=== PATIENT | male | born 1950 | race Caucasian/White ===

== ENCOUNTER → 2019-01-18 | Outpatient (CLI) | payer MEDICARE, OTHER, SELFPAY ==
[2017-02-25 12:12] VITALS: BMI 35.9
[2019-01-18 11:29] LABS: PSA,Total- Diagnostic 0.52 ng/mL (0.0-4.0)
== END | disposition home or self-care (01) ==
LOC: LAB 10:30
PROVIDERS: Family Provider Internal Medicine; PCP Internal Medicine; Referring Provider Urology; Visit Provider Urology
DX: C61 Malignant neoplasm of prostate (principal)
CPT/HCPCS: 36415; 84153

== ENCOUNTER → 2020-03-01 | Outpatient (CLI) | payer MEDICARE, OTHER, SELFPAY ==
[2019-09-08 10:38] VITALS: BMI 32.5
[2020-03-01 15:47] LABS: PSA,Total- Diagnostic 0.49 ng/mL (0.0-4.0)
== END | disposition home or self-care (01) ==
LOC: LAB 15:05
PROVIDERS: PCP Internal Medicine; Referring Provider Urology; Visit Provider Urology
DX: C61 Malignant neoplasm of prostate (principal)
CPT/HCPCS: 36415; 84153

== ENCOUNTER → 2020-03-22 06:59 | Outpatient (CLI) | payer MEDICARE, OTHER, SELFPAY ==
[2020-03-13 08:51] VITALS: BMI 31.9
--- NOTE | 2020-03-22 06:59 | ECHOCS_ITS ---
Reason For Study: CAD/ASHD Procedure This was a 2D Doppler, Color Flow transthoracic echocardiogram. The study was technically difficult. PT scanned in supine position due to inability to lie in left lateral decubitus position. Contrast injection was performed. Exam performed in department. Left Ventricle Normal LV size. Mild segmental systolic dysfunction (see wall motion). The estimated ejection fraction is 40 %. No evidence for diastolic dysfunction. Posterior-Basal: Hypokinetic. Infero-Basal: Hypokinetic. Basal inferoseptal: Hypokinetic. Mid-Lateral : Hypokinetic. Mid-Posterior: Hypokinetic. Mid-Inferior: Hypokinetic. Mid-inferoseptal : Hypokinetic. Inferior [place] : Hypokinetic. Right Ventricle Normal RV size. Normal systolic function. Atria Normal left atrium. Normal right atrium. No doppler evidence for ASD. Mitral Valve There is no mitral annular calcification. Normal mitral valve. Trivial mitral valve insufficiency. Tricuspid Valve Normal tricuspid valve. Trivial tricuspid valve insufficiency. Unable to estimate RV systolic pressure/pulmonary artery pressure due to technically difficult study. Aortic Valve Trisinus/trileaflet aortic valve. Normal aortic valve. Pulmonic Valve The pulmonic valve is not well visualized. Great Vessels Normal sized aortic root. Pericardium/Pleural No pericardial effusion. Medication Diluted definity 3.0ml given slow IV push to enhance endocardial definition. MMode/2D Measurements & Calculations LVIDd: 4.9 cm IVSd: 1.3 cm Ao root diam: 3.7 cm LVIDs: 3.7 cm LVPWd: 1.3 cm RVDd: 3.6 cm FS: 24.0 % LAV(MOD-bp): 67.2 ml LA A4 area: 19.4 cm2 LA dimension(2D): 3.6 cm LAV(MOD-bp) Indexed: 30.0 ml/m2 LAV(MOD-sp2): 75.6 ml LAV(MOD-sp4): 57.7 ml RA A4 area: 15.0 cm2 Doppler Measurements & Calculations MV E max marin: 61.4 cm/sec Lat Peak E' Marin: 11.9 cm/sec Med Peak E' Marin: 5.0 cm/sec MV A max marin: 107.7 cm/sec E/E' lat: 5.2 E/E' med: 12.4 MV E/A: 0.57 Ao V2 max: 106.5 cm/sec LV V1 max: 83.9 cm/sec PA V2 max: 65.9 cm/sec Ao max P.5 mmHg LV V1 max P.8 mmHg Interpretation Summary The study was technically difficult. Contrast injection was performed. Mild segmental systolic dysfunction (see wall motion). The estimated ejection fraction is 40 %. Trivial mitral valve insufficiency. Trivial tricuspid valve insufficiency. Unable to estimate RV systolic pressure/pulmonary artery pressure due to technically difficult study. No evidence for diastolic dysfunction. Ordering Physician: Becca Steve Referring Physician: Kaycee Singer Performed By: Stephanie Angeles, ZEKE, RVT
--- NOTE | 2020-03-22 09:38 | STRESSREP ---
Stress Test Report Date: 03-22-2020 Procedure: Pharmacologic stress nuclear imaging study Indications: Chest pain; CAD; PCI Consent: Per the patient Procedure: The patient underwent pharmacologic (Regadenoson) evaluation with a peak heart rate of 106 beats per minute (70 %predicted maximal heart rate) and a peak blood pressure of 158/98 mmHg. The baseline ECG demonstrated normal sinus rhythm: Nonspecific ST/T wave abnormality. The peak pharmacologic ECG demonstrated no obvious ECG changes. There was an occasional PVC and intermittent ventricular bigeminy during recovery. There was concerns of chest discomfort during recovery with spontaneous resolution. The examination was discontinued secondary to completion of protocol. Impression: 1. Pharmacologic (Regadenoson) evaluation 2. Peak pharmacologic ECG with no obvious ECG changes. 3. There was an occasional PVC with intermittent ventricular bigeminy during recovery. 4. Nuclear images pending Myocardial perfusion imaging study: Technique: The patient was injected with 14.5 millicuries of technetium 99m Cardiolite and subsequently rest SPECT Cardiolite nuclear imaging was obtained in the horizontal long, vertical long, and short axis views. The patient underwent pharmacologic (Regadenoson) evaluation with a peak heart rate of 106 beats per minute (70 % percent predicted maximal heart rate) and a peak blood pressure of 158/98 mmHg. The patient was injected with 44.4 millicuries of technetium 99m Cardiolite and subsequently stress SPECT Cardiolite nuclear imaging was obtained in the horizontal long, vertical long, and short axis views. A gated Cardiolite study at peak stress was obtained. Interpretation: Rest and stress SPECT Cardiolite nuclear imaging status post realignment, normalization, and attenuation correction demonstrate at rest the appearance of relative uniform tracer uptake and status post stress the appearance of diminished myocardial perfusion/tracer uptake in portions of the distal anterior and anteroseptal and anterior apical/septal apical segments. There is diminished end systolic thickening and brightening in the aforementioned areas. The gated Cardiolite study demonstrates diminished myocardial thickening and inward wall motion in the aforementioned area. The reported LVEF is 52 %. Impression: 1. Rest and stress SPECT her nuclear imaging demonstrate myocardial perfusion changes concerning for an area of stress-induced myocardial ischemia involving portions of the distal anterior, distal anteroseptal, and anteroapical/septal apical segments. 2. The gated Cardiolite study reports an LVEF of 52 %. This note was generated with Dragon dictation software. It may contain incorrect words, spelling, and punctuation that were not noted in checking the note before signing.
== END ==
PROVIDERS: PCP Internal Medicine; Referring Provider Physician Assistant Medical; Visit Provider Physician Assistant Medical
DX: I25.10 Atherosclerotic heart disease of native coronary artery without angina pectoris (principal)
CPT/HCPCS: 78452; 93017; 93306; A9500; Q9957; A4216; C8929; J2785

== ENCOUNTER 2020-04-13 08:42 | Day surgery (SDC) | payer MEDICARE, OTHER, SELFPAY ==
[2020-03-13 08:51] VITALS: BMI 31.9
--- NOTE | 2020-03-27 06:49 | RAD_ITS ---
STUDY: X-RAY CHEST REASON FOR EXAM: Male, 69 years old. SOB. HX PVC, SC W/ STENTS INSERTION. PRE-HEART CATH. TECHNIQUE: PA and lateral views of the chest. COMPARISON: Comparison is made with prior study dated 02/19/2013. FINDINGS: Hyperinflation. There is no demonstrated pleural abnormality. Normal size heart. Normal mediastinum and adrianna. Normal visualized pulmonary arteries. There is atherosclerotic calcification of the aortic arch with tortuosity. There are diffuse degenerative changes of the visualized thoracic spine. Normal visualized ribs, clavicles, and shoulders. There is no demonstrated abnormality of the visualized soft tissue structures of the upper abdomen. RAD/Chest PA and Lateral IMPRESSION: Hyperinflation. Electronically Signed: Kaz Lee, at 10:51 EDT , Service support ,
[2020-03-27 07:07] LABS: Absolute Lymphocyte Count 2.83 X10^3/uL (0.83-4.51); Absolute Neutrophil Count 3.7 X10^3/uL (2.0-7.7); Basophil# 0.03 X10^3/uL; Basophil% 0.4 % (0-1); Eosinophils% 4.1 % (0-5); Hematocrit 47.3 % (40-54); Hemoglobin 15.8 g/dL (13.0-16.5); Lymphocyte # 2.83 X10^3/ul (4.0); Lymphocyte % 39.1 % (19-41); Mean Corp Hgb Conc 33.4 g/dL (32-36); Mean Corpuscular Volume 92.9 fL (80-94); Mean Platelet Vol. 10.5 fl (6.2-12.0); Monocyte# 0.37 X10^3/uL; Monocyte% 5.1 % (0-10); NRBC Flagged by Analyzer 0 % (0-5); Neutrophil # 3.67 X10^3/uL (2.7-7.7); Neutrophil % 50.7 % (47-70); Platelet Count 174 K/mm3 (150-450); RBC Distribution Width CV 13.2 % (11.6-14.6); RBC Distribution Width SD 45.2 fl (35.1-43.9); Red Blood Count 5.09 M/mm3 (4.6-6.2); White Blood Count 7.2 K/mm3 (4.4-11.0)
[2020-03-27 07:15] LABS: International Normalized Ratio 1.1; Prothrombin Time (Protime)PT. 13.2 SECONDS (11.7-14.9)
[2020-03-27 07:46] LABS: Anion Gap 5 (5-15); BUN 20 mg/dL (7-18); BUN/Creat Ratio 17.9 RATIO (10-20); Calcium,Total 8.7 mg/dL (8.5-10.1); Chloride 109 mmol/L (98-107); Creatinine, Serum 1.12 mg/dL (0.70-1.30); EST Glomerular Filtration Rate 69 mL/min (>60); Est Glom Filt Rate - Afr Amer 83 mL/min (>60); Glucose 166 mg/dL (74-106); Sodium Level 141 mmol/L (136-145)
[2020-04-12 07:55] VITALS: BMI 31.9
[2020-04-13] VITALS (17 sets, daily range): BP systolic 108–158; BP diastolic 52–115; PULSE 61–89; RESP 13–21; TEMP 36.3–37; O2SAT 96–100; BMI 33.2
--- NOTE | 2020-04-13 09:05 | PCM.HP.BLA ---
Problem List (1) Abnormal stress test Status: Acute History and Physical Date of Admission: 04/13/20 [facility] [address] [place] [address] OFFICE VISIT Date of Service: 03/13/20 MR#: [id number] Acct: [id number] Name: JONNIE SARABIA Rep #: [id number] : 1950 Provider: RADHA Steve Age/Sex: 69/M [place] [facility] [place] Status: Signed HPI HPI History of Present Illness Details: This is a 69-year-old gentleman that presents here today for cardiovascular follow-up. He recently established with us. He has a history of coronary artery disease with stenting to his LAD and diagonal in 2012. He also has a history of hypertension, hyperlipidemia, PVCs, CLL, diabetes and remote history of CVA. His biggest issue is his hip. He will be establishing with Dr. Olson. He is thinking that he will need a hip replacement. He sts that he had labs done at [facility] recently. He does not have any chest pain. He does not have any worsening SOB. He does not have any orthopnea. But does sleep in a chair. He does not have any palpitations although he sts his PCP noted frequent PVC on an EKG. He does not have any lightheadedness/dizziness. He does have lower extremity edema but feels that this is not any worse than before. Intake Vital Signs 03/13/20 Height 5 ft 11 in 03/13/20 Weight: 229 lb 03/13/20 BP 156/83 H 03/13/20 Blood Pressure Location Lt brachial 03/13/20 Position Sitting 03/13/20 Respiration 18 03/13/20 Pulse 70 03/13/20 Pulse Source Monitor 03/13/20 Pulse Oximetry (%) 98 Intake Visit Reasons: 6 M FU/COMING IN [employer] Book[employer] Required: No Is patient in pain?: No Allergies atorvastatin [From Lipitor] Allergy (Severe, Verified 03/13/20 08:52) Other pravastatin [From Pravachol] Allergy (Severe, Verified 03/13/20 08:52) Other rosuvastatin [From Crestor] Allergy (Severe, Verified 03/13/20 08:52) Other Nfmnkzn-Nnw-Jfx Reductase Inhibitor Allergy (Severe, Verified 03/13/20 08:52) Other ciprofloxacin Adverse Reaction (Severe, Verified 03/13/20 08:52) dizziness, vomiting Medications Acetaminophen 650 mg PO Q4H PRN PRN 11/01/16 [History Confirmed 03/13/20] Cholecalciferol (VIT D3) [Vitamin D3] 5,000 unit PO DAILY 11/01/16 [History Confirmed 03/13/20] Ramipril [Altace] 10 mg PO DAILY 11/01/16 [History Confirmed 03/13/20] Aspirin [Aspirin, Baby] 81 mg PO DAILY@0800 #0 11/03/16 [Rx Confirmed 03/13/20] Carvedilol [Coreg (Beta Lalita)] 12.5 mg PO BID tab 11/03/16 [Rx Confirmed 03/13/20] ezetimibe 10 mg tablet 10 mg PO DAILY 06/14/19 [History Confirmed 03/13/20] insulin aspart U-100 100 unit/mL (3 mL) subcutaneous pen 10 unit SUBCUT DAILY ml 06/14/19 [History Confirmed 03/13/20] insulin glargine 100 unit/mL (3 mL) subcutaneous pen 15 unit SUBCUT QHS ml 06/14/19 [History Confirmed 03/13/20] metformin 500 mg tablet 2,000 mg PO DAILY tab 06/14/19 [History Confirmed 03/13/20] ketoconazole 2 % topical cream 1 applic TOPICAL DAILY 09/08/19 [History Confirmed 03/13/20] COUNT INCLUDES THE [facility] Medical History Mixed hyperlipidemia (Chronic) Essential hypertension (Chronic) Presence of stent in coronary artery (Chronic ~02/20/13) Atherosclerotic heart disease of pamunkey coronary artery without angina pectoris (Chronic) Morbid obesity (Chronic) DM2 (diabetes mellitus, type 2) (Chronic) Chronic systolic CHF (congestive heart failure) (Chronic) Altered mental status (Chronic) CLL (chronic lymphocytic leukemia) (Chronic) History of pleural effusion (Acute) Diverticulosis (Chronic) Left pontine stroke (Chronic) Blood in the urine (Resolved) Surgical History Presence of coronary angioplasty implant and graft (Chronic ~02/20/13) History of bilateral cataract extraction (Resolved) Family History Mother CAD (coronary artery disease) Social History (Updated 03/13/20 @ 09:41 by RADHA Torres) Smoking Status: Never smoker alcohol intake: current substance use type: does not use caffeine: No ROS Const Const: Positive for fatigue; negative for weakness, fever(s) or headache(s) Eyes Eyes: Negative for blind spots, loss of peripheral vision or transient loss of vision ENT ENT: Positive for balance problems; negative for headache(s), dizziness, tinnitus or Nosebleed/epistaxis Cardio Chest Pain: No Palpitations: No Edema: Bilateral Muscle aches with walking: None Resp Respiratory: Positive for SOB with activity; negative for SOB at rest, SOB orthopnea\SOB lying down or Cough GI GI: Negative nausea, vomiting, heartburn or vomiting blood/hematemesis : Negative for hematuria Musc Musc: Positive for muscle aches/ myalgia, muscle weakness, joint pain and balance problems Neuro Neuro: Negative for dizziness, lightheadedness, near syncope, syncope, orthostatic symptoms, headache(s) or weakness Juan Manuel Hematologic/Lymphatic: Negative for easy bleeding Endo Endo: Positive for fatigue Cardiology Exam Const Appearance: cooperative, no acute distress, well developed and other (in WC with cane) Orientation: alert, awake and oriented x3 Head Head: normocephalic and atraumatic Mouth: moist mucous membranes Eyes General: appearance normal, both eyes and all related structures Conjunctivae: conjunctivae normal Pupils: PERRL EOM: EOM intact bilaterally Neck Neck: normal visual inspection, no lymphadenopathy and no JVD Carotids: Negative bruit Neck Mass: Negative Neck mass Chest Chest inspection: normal inspection of the chest and symmetric chest movement Auscultation: Bilateral: Clear to Auscultation Cardio Palpation: normal PMI Rate: regular rate Rhythm: regular rhythm Heart sounds: S1 normal and S2 normal; negative rub, gallop or murmur GI GI: normal to inspection, soft, no hepatosplenomegaly and bowel sounds present; negative tender Neuro General: alert, awake, oriented x3, CN's II-XI intact bilaterally and moves all extremities Extremities Pulses: Normal: Right Posterior Tibial Pulse, Left Posterior Tibial Pulse, Right Radial Pulse, Left Radial Pulse Lower Extremity Edema: +2: Bilateral, Color Changes: Bilateral Psych Psychological: normal affect Assessment & Plan 1. Atherosclerosis of pamunkey coronary artery of [place] heart without angina pectoris I25.10 Plan It has been greater than 5 years since pt has had a stress test. With his hx of CAD with stenting and possible upcoming surgery would like to obtain a stress test to evaluate for underlying ischemia. He also has frequent PVCs that were noted on his EKG. Orders Orders: Echo Complete Today Nuclear Stress Test - Chemical Today 2. Essential hypertension I10 Plan Blood pressure is well controlled on current medications, we do not recommend any changes at this time. 3. Mixed hyperlipidemia E78.2 Plan This is managed by his PCP, he will continue with Zetia, he is intolerance to statins. 4. Edema R60.9 Plan With his lower extremity edema and orthopnea would like to obtain an echocardiogram to evaluate. Plan Detail Follow Up 9 Months (PFM) Coding Level of Care Code Off vis,est,level 4 Diagnoses Atherosclerosis of pam[place]key coronary artery of [place] heart without angina pectoris I25.10 ??[place] vs. transplanted heart: pamunkey heart Essential hypertension I10 Mixed hyperlipidemia E78.2 Edema R60.9 Coding Level of Care Code Off vis,est,level 4 Diagnoses Atherosclerosis of [place] coronary artery of [place] heart without angina pectoris I25.10 ??[place] vs. transplanted heart: [place] heart Essential hypertension I10 Mixed hyperlipidemia E78.2 Edema R60.9 Supplemental Info Supplemental Information Diagnostics Electrocardiogram 09/08/19 03/13/20 0942 <Electronically signed by Becca GARCIA> Date Becca GARCIA Cosigner Signature: Date (if applicable) CC: Dr. Kaycee Singer MD ~ I have examined the patient the following changes are noted: The patient has undergone subsequent noninvasive evaluation with an exercise tolerance test/imaging study. The results are noted below. Stress Test Report Date: 03-22-2020 Procedure: Pharmacologic stress nuclear imaging study Indications: Chest pain; CAD; PCI Consent: Per the patient Procedure: The patient underwent pharmacologic (Regadenoson) evaluation with a peak heart rate of 106 beats per minute (70 %predicted maximal heart rate) and a peak blood pressure of 158/98 mmHg. The baseline ECG demonstrated normal sinus rhythm: Nonspecific ST/T wave abnormality. The peak pharmacologic ECG demonstrated no obvious ECG changes. There was an occasional PVC and intermittent ventricular bigeminy during recovery. There was concerns of chest discomfort during recovery with spontaneous resolution. The examination was discontinued secondary to completion of protocol. Impression: 1. Pharmacologic (Regadenoson) evaluation 2. Peak pharmacologic ECG with no obvious ECG changes. 3. There was an occasional PVC with intermittent ventricular bigeminy during recovery. 4. Nuclear images pending Myocardial perfusion imaging study: Technique: The patient was injected with 14.5 millicuries of technetium 99m Cardiolite and subsequently rest SPECT Cardiolite nuclear imaging was obtained in the horizontal long, vertical long, and short axis views. The patient underwent pharmacologic (Regadenoson) evaluation with a peak heart rate of 106 beats per minute (70 % percent predicted maximal heart rate) and a peak blood pressure of 158/98 mmHg. The patient was injected with 44.4 millicuries of technetium 99m Cardiolite and subsequently stress SPECT Cardiolite nuclear imaging was obtained in the horizontal long, vertical long, and short axis views. A gated Cardiolite study at peak stress was obtained. Interpretation: Rest and stress SPECT Cardiolite nuclear imaging status post realignment, normalization, and attenuation correction demonstrate at rest the appearance of relative uniform tracer uptake and status post stress the appearance of diminished myocardial perfusion/tracer uptake in portions of the distal anterior and anteroseptal and anterior apical/septal apical segments. There is diminished end systolic thickening and brightening in the aforementioned areas. The gated Cardiolite study demonstrates diminished myocardial thickening and inward wall motion in the aforementioned area. The reported LVEF is 52 %. Impression: 1. Rest and stress SPECT her nuclear imaging demonstrate myocardial perfusion changes concerning for an area of stress-induced myocardial ischemia involving portions of the distal anterior, distal anteroseptal, and anteroapical/septal apical segments. 2. The gated Cardiolite study reports an LVEF of 52 %. Based upon the patient's cardiovascular history and his exercise tolerance test/imaging findings it is been recommended the patient undergo further evaluation with diagnostic cardiac catheterization. The procedure and risks were discussed with the patient. He was agreeable to this approach. Procedure Criteria Procedure Type: Elective COVID Risk Discussion: The surgeon/proceduralist and patient have discussed in detail the risk of exposure to and/or potential harm posed by the COVID-19 virus with having a surgery/procedure at this time versus the risk of delaying the surgery/procedure. It is not possible to know either the risk of delaying the surgery or procedure or chance of getting an infection with perfect accuracy, but a joint decision was made between the patient and the surgeon/proceduralist to proceed at this time with the scheduled surgery/procedure as indicated on the consent form.
--- NOTE | 2020-04-13 12:32 | NURSING ---
Stent card brought up to patient room with patient post cath. stent card given to patient's at this time.
--- NOTE | 2020-04-13 13:00 | EKG12_ITS ---
Test Reason : Blood Pressure : / mmHG Vent. Rate : 082 BPM Atrial Rate : 082 BPM P-R Int : 184 ms QRS Dur : 110 ms QT Int : 386 ms P-R-T Axes : 059 -39 026 degrees QTc Int : 450 ms Normal sinus rhythm Left axis deviation Abnormal ECG Confirmed by HANNY MONTANA, ERIKA ([id number]), editor book MASHA TERRY ([id number]) on 04/19/2020 11:09:21 AM Referred By: Ru Alexander Confirmed By:ERIKA GAMINO MD
--- NOTE | 2020-04-13 13:10 | DCINST_ITS ---
Discharge Diet: Low fat/ Low Cholesterol Discharge Activity: Return to Normal Activity May shower in (days): 1 - No tub baths for 5 days May resume sexual activity in: 1-2 weeks Lifting Restrictions: Do not lift anything greater than 10 pounds for 3 days Call your doctor if your incision/area has: Continuous Slow Oozing, Sudden Increased Bleeding, Increased Pain/ Swelling, Increased Redness, Foul Smelling Discharge, Swelling at the incision site Call your doctor if you observe: Fever of 101 or Higher, Shortness of breath, Chest pain Remove Dressing in (days):: 1 Cleanse incision/area with: Soap & Water Additional Instructions: You will continue with Aspirin and Plavix therapy. If anyone asks you to stop your Plavix, please call the [facility] at [phone], option 4, first. You will be contacted by the [facility] in regards to routine follow-up in approximately 2-4 weeks. At that time we will consider readiness for cardiac rehab. If you have any questions or concerns at any point please call the [facility] at [phone], option 4. Allergies/Adverse Reactions: Allergies atorvastatin [From Lipitor] Allergy (Severe, Verified 03/13/20 08:52) Other CAN'T MOVE pravastatin [From Pravachol] Allergy (Severe, Verified 03/13/20 08:52) Other CAN'T MOVE rosuvastatin [From Crestor] Allergy (Severe, Verified 03/13/20 08:52) Other CAN'T MOVE Gkcupts-Bgu-Oft Reductase Inhibitor Allergy (Severe, Verified 03/13/20 08:52) Other CAN'T MOVE ciprofloxacin Adverse Reaction (Severe, Verified 03/13/20 08:52) dizziness, vomiting Medications to take at Discharge Acetaminophen 650 mg PO Q4H PRN PRN 11/01/16 Cholecalciferol (VIT D3) [Vitamin D3] 5,000 unit PO DAILY 11/01/16 Ramipril [Altace] 10 mg PO DAILY PRN 11/01/16 Aspirin [Aspirin, Baby] 81 mg PO DAILY@0800 #0 11/03/16 Carvedilol [Coreg (Beta Lalita)] 12.5 mg PO BID tab 11/03/16 ezetimibe 10 mg tablet 10 mg PO DAILY 06/14/19 insulin aspart U-100 100 unit/mL (3 mL) subcutaneous pen 10 unit SUBCUT BID ml 06/14/19 insulin glargine 100 unit/mL (3 mL) subcutaneous pen 15 unit SUBCUT QHS ml 06/14/19 metformin 500 mg tablet 2,000 mg PO DAILY tab 06/14/19 clopidogrel 75 mg tablet 75 mg PO DAILY #30 tab 03/23/20 Primary Care Physician: Kaycee Singer MD [Primary Care Provider] - Test Results: Test results from this visit will be discussed in further detail at your follow- up appointment, if applicable. Please Follow Up With: [facility] Proposed Discharge Date: 04/14/20 Cardiac Rehabilitation Info Cardiac Rehabilitation Program Information: Cardiac Rehabilitation is important for patients like you who are recovering from a heart problem. Cardiac rehabilitation programs are recognized as integral to the continued care of the patient with coronary heart disease. The cardiac rehabilitation program is designed to optimize a patient's physical, psychological, and social functioning. Health customer care voice consultant work in cardiac rehabilitation programs and assist you with getting the treatments you need to get stronger and healthier - like exercise, healthy eating habits, and medications. Cardiac rehabilitation has been show to help people with heart problems live longer and have better life enjoyment than people who do not go to cardiac rehabilitation. Please contact the Cardiac Rehabilitation Program at [facility] at in two weeks if you have not heard from them.
[2020-04-13] MEDS: 0.9% Normal Saline 1,000 ML 60 ML IV (13:12)
[2020-04-13 13:20] LABS: Bedside Glucose 176 mg/dL (70-110)
[2020-04-13] MEDS: Insulin Lispro 100 UNIT/ML INSULN.PEN 10 UNIT SC ×2 (13:45→17:18)
--- NOTE | 2020-04-13 14:12 | CRPHASE1 ---
Patient Communication PHII Cardiac Rehab Discussed with Patient:: Yes Guide to Cardiac Rehab Given to Patient:: Yes Cardiac Rehab Facility Choice List Given to Patient:: Yes Choice Program [facility] PHII:: Communication Given to CR District Manager:: Monica Mcgarry Phase II Cardiac Rehab:: Yes Sessions:: 36 sessions - 3 days/wk, 12 weeks Risk Factors/Lifestyle Smoking Status: Never smoker Hx Hypertension: Yes Hx Diabetes Mellitus Type 2: Yes Hx Dyslipidemia: Yes Hx Obesity: Yes Family History: Family History (Last Reviewed 03/13/20 @ 09:17 by RADHA Torres) Mother CAD (coronary artery disease) Cardiac Rehabilitation Info Cardiac Rehabilitation Program Information: Cardiac Rehabilitation is important for patients like you who are recovering from a heart problem. Cardiac rehabilitation programs are recognized as integral to the continued care of the patient with coronary heart disease. The cardiac rehabilitation program is designed to optimize a patient's physical, psychological, and social functioning. Health health care consultant work in cardiac rehabilitation programs and assist you with getting the treatments you need to get stronger and healthier - like exercise, healthy eating habits, and medications. Cardiac rehabilitation has been show to help people with heart problems live longer and have better life enjoyment than people who do not go to cardiac rehabilitation. Please contact the Cardiac Rehabilitation Program at [facility] at in two weeks if you have not heard from them.
--- NOTE | 2020-04-13 14:15 | CRPH1.INSTRU ---
General Education CAD and cardiac anatomy and function:: Patient communicates acknowledgment Explanation of diagnoses and procedures:: Patient communicates acknowledgment Sign/Symptoms of [place]:: Patient communicates acknowledgment Antiplatelet therapy: Patient communicates acknowledgment Proper use of NTG-SL: Patient communicates acknowledgment Emergency procedures and activation of EMS: Patient communicates acknowledgment Compliance of all prescribed medications: Patient communicates acknowledgment Dyslipidemia Patient Dyslipidemia Risk Factors Are:: Total Cholesterol, Triglycerides, HDL, LDL Recommendations Include:: Lipid profile not available Dyslipidemia Response Code:: Patient communicates acknowledgment Overweight/Obesity Patient Overweight/Obesity Risk Factors Are:: BMI Normal [24-29 & > 65 years old] Recommendations Include:: Weight loss of 5-10%, Reduced calorie diet, Exercise 5-7 times/week Overweight/Obesity:: Patient communicates acknowledgment Hypertension Recommendations Include:: BP <130/80 if diabetic, DASH dietary guidelines, Decrease/maintain normal body weight Hypertension:: Patient communicates acknowledgment Diabetes Patient Diabetes Risk Factors Are:: Elevated blood sugars Recommendations Include:: Maintain fasting blood sugars 70-110 md/dL, Maintain HgbA1c of 6% or less, Monitor blood sugar as prescribed, Diabetic dietary guidelines, Decrease/maintain body weight Diabetes:: Patient communicates acknowledgment Sedentary Patient Sedentary Risk Factors Are:: Lack of regular exercise Recommendations Include:: Aerobic exercise 5-7 times/week for 20-30 minutes continuously, Benefits of regular exercise, Discussed home walking program, Monitored Outpatient Cardiac Rehab Sedentary Response Code:: Patient communicates acknowledgment Stress Recommendations Include:: Identification of stressors, and assessment of coping skills, Stress management techniques Stress Response Code:: Patient communicates acknowledgment
--- NOTE | 2020-04-13 16:50 | CL.I_ITS ---
Patient Name: JONNIE SARABIA Study Date: 04/13/2020 Performing: Lulú Mcgarry MD Ht: 71 inches 180 cm : 1950 Wt: 229.6 lbs 104 kg Age: 69 Gender: male BSA: 2.23 PROCEDURE(S) PERFORMED [id number] W OR WO PTCA, SINGLE CORONARY ARTERY CLINICAL PROFILE AND CO-MORBIDITIES Indications: Worsening Angina. Unstable angina Heart Failure: None CONCLUSIONS Successful PCI with Drug eluting stent and PTCA to the LAD RECOMMENDATIONS ASA Indefinitley Plavix for at least 12 months Follow up with Dr. Alexander Pt. should return for PCI of distal LCx in 2-3 weeks DESCRIPTION OF PROCEDURE The patient arrived to the procedure lab. The risks and benefits of the procedure as well as a full d escription of our services here and current unavailability of surgical backup were fully explained to the patient and/or their significant other prior to the catheterization. The Timeout was completed, verifying the correct patient and procedure. The patient's procedural site was prepped and draped in the usual fashion. Local anesthetic was given subcutaneously to right radial region with Lidocaine 2% Using a modified Seldinger technique,arterial access was obtained via the right radial artery, a 6Fr sheath was inserted. Right Coronary Artery selective angiography was performed in multiple views usi ng a 5 Fr. 4.0 [place] catheter. Left Coronary Artery selective angiography was performed in multiple v iews using a 5 Fr. 4.0 [place] catheter. Left Ventriculography was performed in [place]IR[place]ICK projection using a 5 Fr. Pigtail catheter. LV to AO pullback pressures were then recorded. XB 3.0 Guide catheter was inserted and engaged into the LCA. Whisper Guide wire was advanced to t he LAD. Emerge 1.5 x 15 Balloon catheter was inserted. Balloon catheter was advanced across lesion in the LAD, mid. PTCA balloon inflated at 10 atms for 14 secs. PTCA balloon inflated at 10 atms for 14 secs. PTCA balloon inflated at 10 atms for 10 secs. PTCA balloon inflated at 10 atms for 11 secs. PTC A balloon inflated at 10 atms for 10 secs. PTCA balloon inflated at 10 atms for 10 secs. Emerge 2.0 x 20 Balloon catheter was inserted. Balloon catheter was advanced across lesion in the LAD, mid. PTCA balloon inflated at 6 atms for 8 secs. PTCA balloon inflated at 6 atms for 18 secs. PTCA balloon infl ated at 6 atms for 9 secs. PTCA balloon inflated at 6 atms for 10 secs. PTCA balloon inflated at 8 at ms for 24 secs. PTCA balloon inflated at 10 atms for 11 secs. Synergy 2.25 x 38 Drug Eluting stent wa laina inserted. Drug Eluting stent was advanced across the lesion in the LAD, mid. Synergy 2.25 x 16 Drug Eluting stent was inserted. Drug Eluting stent was advanced across the lesion in the L AD, mid. Angiogram performed post stent deployment. The arterial sheath was pulled and a TR Band basia [place] applied for hemostasis INTERVENTION INFORMATION LESION SITE: LAD (Mid) Lesion Complexity: High/C, chronic total occlusion: Yes, lesion at bifurcation: No, thrombus present: No, lesion length: 50 mm, culprit lesion: Yes, Previously treated lesion: No Pre Stenosis: 99 % Pre intervention RONNIE flow: 2 PROCEDURE: Drug Eluting Stent with pre dilatation. Post Stenosis: 0 % Post intervention RONNIE flow: 3 Lesion Devices: Cardinal 6 Fr XB3.0 100cm Guide Catheter Robb .014 [employer] [place] Straight 190cm Robb .014 HT Whisper MS Straight 190cm Adolph Sci EMERGE MR 1.50x15 BALLOON [employer] 6 [place] GuideLiner Adolph Sci EMERGE MR 2.00x20 BALLOON Adolph Sci Synergy MR LLUVIA 2.25x38 Adolph Sci Synergy MR LLUVIA 2.25x16 COMPLICATIONS No Complications PROCEDURE MEDICATIONS Fentanyl 50 mcg IV Versed 1 mg IV Oxygen: 2 L/min via nasal cannula Heparin diluted in 23cc Heparinized saline. Patient given 10cc IA of this solution. 04/13/2020 10:27: 16 Heparin 7000 unit(s) IV 04/13/2020 11:12:31 Nitro 200 mcg IC 04/13/2020 11:39:07 Nitro 200 mcg IC 04/13/2020 11:39:07 Verapamil 2.5mg, Ntg 100mcgs, 2000 units of Heparin diluted in 23cc Heparinized saline. Patient give n 10cc IA of this solution. 04/13/2020 10:27:16 SUMMARY OF HEMODYNAMIC DATA Time AIR REST ECG 09:04:41 AO 154/80 (106) SA 10:34:21 LV 183/8, 29 10:54:33 LV 178/6, 25 10:54:39 LV 177/5, 21 10:55:37 LV 179/7, 22 10:55:43 LVp 183/6, 22 10:55:48 AOp 188/83 (127) 10:55:53 Signed By Lulú Mcgarry MD On 04/13/2020 16:49:59 Lulú Mcgarry MD
[2020-04-13 17:11] LABS: Anion Gap 6 (5-15); BUN 18 mg/dL (7-18); Calcium,Total 8.5 mg/dL (8.5-10.1); Chloride 108 mmol/L (98-107); Creatinine, Serum 1.06 mg/dL (0.70-1.30); EST Glomerular Filtration Rate 73 mL/min (>60); Est Glom Filt Rate - Afr Amer 89 mL/min (>60); Estimated Creatinine Clearance 64.85 ml/min; Glucose 161 mg/dL (74-106); Magnesium 2.2 mg/dL (1.6-2.6); Potassium 4.3 mmol/L (3.5-5.1); Sodium Level 139 mmol/L (136-145)
[2020-04-13] MEDS: Carvedilol 12.5 MG Tablet PO (17:18)
[2020-04-13 17:30] LABS: Bedside Glucose 150 mg/dL (70-110)
--- NOTE | 2020-04-13 19:12 | CL.D_ITS ---
Patient Name: JONNIE SARABIA Study Date: 04/13/2020 Performing: Ru Alexander MD Ht: 71 inches 180 cm : 1950 Wt: 229.6 lbs 104 kg Age: 69 Gender: male BSA: 2.23 PROCEDURE(S) PERFORMED KM30-ZFC/COR/LV EQ44-VGR W OR WO PTCA, SINGLE CORONARY ARTERY CLINICAL PROFILE AND INDICATIONS Indications: Worsening Angina. Unstable angina, Suspected CAD Heart Failure: None Stress/Imaging Date: 03/22/2020Stress Test with SPECT MPI: Positive Angina Classification Anginal Classification w/in 2 Weeks: Anginal Equivalent Dyspnea CAD Presentations: Other: dyspnea on exertion CONCLUSIONS Elevated Left Ventricular End Diastolic Pressure Segmented LV systolic dysfunction- Mild LVEF: by LV gram 45 % [place] Multivessel CAD RECOMMENDATIONS Risk factor modification Medical therapy Referred for immediate PCI Consider staged PCI of the LCX system DESCRIPTION OF PROCEDURE The patient arrived to the procedure lab. The risks and benefits of the procedure as well as a full d escription of our services here and current unavailability of surgical backup were fully explained to the patient and/or their significant other prior to the catheterization. The Timeout was completed, verifying the correct patient and procedure. The patient's procedural site was prepped and draped in the usual fashion. Local anesthetic was given subcutaneously to right radial region with Lidocaine 2% . Using a modified Seldinger technique, arterial access was obtained via the right radial artery, a 6 Fr sheath was inserted. Right Coronary Artery selective angiography was performed in multiple views using a 5 Fr. 4.0 [place] catheter. Left Coronary Artery selective angiography was performed in multipl e views using a 5 Fr. 4.0 [place] catheter. Left Ventriculography was performed in [place] projection using a 5 Fr. Pigtail catheter. LV to AO pullback pressures were then recorded.The arterial sheath was pulled and a TR Band was applied for hemostasis CORONARY ANGIOGRAPHY DOMINANCE: Left Dominant LEFT HEART ASSESSMENT Left Ventricular Ejection Fraction: by LV Gram 45 % Anterior Hypokinesis. Inferior Mid Hypokinesis. Apical Hypokinesis Elevated Left Ventricular End Diastolic Pressure LVEDP: 25 mmHg LEFT ANTERIOR DESCENDING ARTERY: PROX LAD: Previously placed stent is patent MID LAD: s/p stent: subtotally occluded with the mid to distal vessel filling late DIAGONAL 1: Proximal - Previously placed stent is patent CIRCUMFLEX ARTERY: OSTIAL CIRC: eccentric: 25 % Stenosis PROX CIRC: Mild luminal irregularities MID CIRC: Mild luminal irregularities DISTAL CIRC: 90 % Stenosis OM 2: Mid - Mild luminal irregularities LT PDA: Left PDA: Mid - diffuse: 50 % Stenosis RIGHT CORONARY ARTERY: PROX RCA: long: diffus: irregular: 95 % Stenosis AORTIC ROOT: Angiographically normal COMPLICATIONS No Complications PROCEDURE MEDICATIONS Fentanyl 50 mcg IV Versed 1 mg IV Oxygen: 2 L/min via nasal cannula Heparin diluted in 23cc Heparinized saline. Patient given 10cc IA of this solution. 04/13/2020 10:27: 16 Heparin 7000 unit(s) IV 04/13/2020 11:12:31 Nitro 200 mcg IC 04/13/2020 11:39:07 Nitro 200 mcg IC 04/13/2020 11:39:07 Verapamil 2.5mg, Ntg 100mcgs, 2000 units of Heparin diluted in 23cc Heparinized saline. Patient give n 10cc IA of this solution. 04/13/2020 10:27:16 SUMMARY OF HEMODYNAMIC DATA Time AIR REST ECG 09:04:41 AO 154/80 (106) SA 10:34:21 LV 183/8, 29 10:54:33 LV 178/6, 25 10:54:39 LV 177/5, 21 10:55:37 LV 179/7, 22 10:55:43 LVp 183/6, 22 10:55:48 AOp 188/83 (127) 10:55:53 Signed By Ru Alexander MD On 04/13/2020 19:11:12 Ru Alexander MD
[2020-04-13 21:46] LABS: Bedside Glucose 135 mg/dL (70-110)
[2020-04-14 02:59] VITALS: PULSE 62
[2020-04-14 03:10] VITALS: BP 140/69; PULSE 70; RESP 16; TEMP 36.8; O2SAT 97
[2020-04-14 06:32] LABS: Hematocrit 46.8 % (40-54); Hemoglobin 15.9 g/dL (13.0-16.5); Mean Corpuscular Hgb 31.4 pg (27.0-32.0); Mean Corpuscular Volume 92.3 fL (80-94); Mean Platelet Vol. 10.6 fl (6.2-12.0); Platelet Count 137 K/mm3 (150-450); RBC Distribution Width CV 13.2 % (11.6-14.6); RBC Distribution Width SD 44.2 fl (35.1-43.9); Red Blood Count 5.07 M/mm3 (4.6-6.2); White Blood Count 7.5 K/mm3 (4.4-11.0)
[2020-04-14 06:54] VITALS: PULSE 69
[2020-04-14 06:56] LABS: ALB/GLOB Ratio 1.5 RATIO (0.9-2.4); AST(SGOT) 9 U/L (15-37); Alanine Aminotransfer ALT/SGPT 16 U/L (16-61); Albumin, Serum 3.4 g/dL (3.2-5.0); Alkaline Phosphatase 43 U/L (45-117); Anion Gap 3 (5-15); BUN 18 mg/dL (7-18); BUN/Creat Ratio 16.4 RATIO (10-20); Calcium,Total 8.4 mg/dL (8.5-10.1); Chloride 110 mmol/L (98-107); EST Glomerular Filtration Rate 70 mL/min (>60); Est Glom Filt Rate - Afr Amer 85 mL/min (>60); Estimated Creatinine Clearance 62.49 ml/min; Globulin 2.3 g/dL (2.2-4.2); Glucose 88 mg/dL (74-106); Potassium 3.8 mmol/L (3.5-5.1); Protein, Total 5.7 g/dL (6.4-8.2); Sodium Level 142 mmol/L (136-145)
[2020-04-14 08:22] VITALS: BP 155/75; PULSE 69; RESP 16; TEMP 36.4; O2SAT 96
[2020-04-14] MEDS: Aspirin 81 MG TAB.CHEW PO (08:25)
[2020-04-14] MEDS: Clopidogrel Bisulfate 75 MG Tablet PO (08:26)
[2020-04-14] MEDS: Ezetimibe 10 MG Tablet PO (08:26)
[2020-04-14] MEDS: Carvedilol 12.5 MG Tablet PO (08:26)
--- NOTE | 2020-04-14 10:00 | EKG12_ITS ---
Test Reason : AM EKG Blood Pressure : / mmHG Vent. Rate : 070 BPM Atrial Rate : 070 BPM P-R Int : 190 ms QRS Dur : 112 ms QT Int : 396 ms P-R-T Axes : 066 -33 002 degrees QTc Int : 427 ms Sinus rhythm with occasional Premature ventricular complexes Left axis deviation Incomplete left bundle branch block Abnormal ECG When compared with ECG of 13-APR-2020 13:35, MANUAL COMPARISON REQUIRED, DATA IS UNCONFIRMED Confirmed by PAO MONTANA, SHERINE ([id number]), technical writer and editor MASHA TERRY ([id number]) on 04/27/2020 1:33:02 PM Referred By: Ru Alexander Confirmed By:CALIN CEDENO MD
--- NOTE | 2020-04-14 10:10 | DCINST_ITS ---
- Discharge Diagnoses Current Active Problems: Current Active and Chronic Problems (Last Reviewed 03/13/20 @ 09:17 by PA. RADHA Torres) Abnormal stress test (Acute) You will use the following diet at home:: Calorie/Carbohydrate Controlled (specify 1200, 1400, etc) - 1800 Calories, Cardiac Your food should be the consistency of: Regular Discharge Activity: May Not Drive - Do not drive: 48 hours, May Take a Tub Bath - May not take a tub bath for 7 days May shower in (days): 1 - No tub baths for 5 days May resume sexual activity in: 1-2 weeks Weight Bearing Status: - - Avoid heavy exertional activity pending outpatient follow-up Call your doctor if your incision/area has: Continuous Slow Oozing, Sudden Increased Bleeding, Increased Pain/ Swelling, Increased Redness, Foul Smelling Discharge, Swelling at the incision site Call your doctor if you observe: Fever of 101 or Higher, Shortness of breath, Chest pain Remove Dressing in (days):: 1 Cleanse incision/area with: Soap & Water Additional Instructions: Hold metformin until 04-16-2020 then resume Allergies/Adverse Reactions: Allergies atorvastatin [From Lipitor] Allergy (Severe, Verified 03/13/20 08:52) Other CAN'T MOVE pravastatin [From Pravachol] Allergy (Severe, Verified 03/13/20 08:52) Other CAN'T MOVE rosuvastatin [From Crestor] Allergy (Severe, Verified 03/13/20 08:52) Other CAN'T MOVE Iwnmeta-Vmk-Xtl Reductase Inhibitor Allergy (Severe, Verified 03/13/20 08:52) Other CAN'T MOVE ciprofloxacin Adverse Reaction (Severe, Verified 03/13/20 08:52) dizziness, vomiting Medications to take at Discharge Cholecalciferol (VIT D3) [Vitamin D3] 5,000 unit PO DAILY 11/01/16 Ramipril [Altace] 10 mg PO DAILY PRN 11/01/16 Aspirin [Aspirin, Baby] 81 mg PO DAILY@0800 #0 11/03/16 Carvedilol [Coreg (Beta Lalita)] 12.5 mg PO BID tab 11/03/16 ezetimibe 10 mg tablet 10 mg PO DAILY 06/14/19 insulin aspart U-100 100 unit/mL (3 mL) subcutaneous pen 10 unit SUBCUT BID ml 06/14/19 insulin glargine 100 unit/mL (3 mL) subcutaneous pen 15 unit SUBCUT QHS ml 06/14/19 metformin 500 mg tablet 2,000 mg PO DAILY tab 06/14/19 clopidogrel 75 mg tablet 75 mg PO DAILY #30 tab 03/23/20 Primary Care Physician: Kaycee Singer MD [Primary Care Provider] - Test Results: Test results from this visit will be discussed in further detail at your follow- up appointment, if applicable. Please Follow Up With: [facility] Proposed Discharge Date: 04/14/20
--- NOTE | 2020-04-14 10:12 | PCM.DC.SUM ---
Discharge Date and Diagnosis - Problem List Patient Problems: Active and Suspected Problems (Last Reviewed 03/13/20 @ 09:17 by RADHA Alas) Abnormal stress test (Acute) Date of Admission: 04/13/20 Date of Discharge: 04/14/20 - Primary Discharge Diagnosis Acute Problems: Active Problems (Last Reviewed 03/13/20 @ 09:17 by RADHA Alas) Abnormal stress test (Acute) - Secondary Discharge Diagnosis Chronic Problems: Chronic Problems (Last Reviewed 03/13/20 @ 09:17 by RADHA Alas) Mixed hyperlipidemia (Chronic) Essential hypertension (Chronic) Presence of stent in coronary artery (Chronic ~02/20/13) PTCA/LLUVIA to prox LAD and PTCA/LLUVIA to Prox DX 1 @ [facility] 02/20/2013 Atherosclerotic heart disease of [place] coronary artery without angina pectoris (Chronic) Morbid obesity (Chronic) DM2 (diabetes mellitus, type 2) (Chronic) Chronic systolic CHF (congestive heart failure) (Chronic) Altered mental status (Chronic) CLL (chronic lymphocytic leukemia) (Chronic) ? Hospital Course and Treatment Operations: None Procedures: Cardiac catheterization, - - Cardiac intervention Summary of Care Provided: The patient is a 69 year old white male with a past history of CAD status post PCI who presented for an abnormal exercise tolerance test/imaging study for diagnostic cardiac catheterization. He was found to have progression of his underlying coronary artery disease especially with respect to the LAD and LCx distribution. He subsequently underwent LAD PTCA/stent. He is going to be considered for a staged procedure to the LCx distal distribution. He was monitored overnight. He appeared to be symptomatically and hemodynamically stable. He was felt able to be released home for continued outpatient cardiovascular follow-up. [] Patient Problems: Active and Suspected Problems (Last Reviewed 03/13/20 @ 09:17 by RADHA Alas) Abnormal stress test (Acute) Subjective: Is a 69-year-old white male appears to be resting comfortably at the moment in no acute distress. - Physical Exam Vitals/I&O's: Vital Signs Temp Pulse Resp BP Pulse Ox 97.6 F L 69 16 155/75 H 96 04/14/20 08:22 04/14/20 08:22 04/14/20 08:22 04/14/20 08:22 04/14/20 08:22 Oxygen Delivery Method Room Air Weight: 220 lb 0.341 oz Body Mass Index (BMI) 33.2 Intake and Output for Last 24 Hours 04/12/20 04/13/20 04/14/20 23:59 23:59 23:59 Intake Total 1237 / 1237 240 / 240 Output Total 1150 / 1150 875 / 875 Balance 87 / 87 -635 / -635 General: Alert, Oriented x3, Cooperative, No apparent distress HEENT: Atraumatic, PERRLA, EOMI, Normocephalic Neck: No JVD Lungs: Clear to auscultation Cardiovascular: Regular rate, Normal S1, Normal S2 Abdomen: Bowel Sounds Present, Soft, Non Tender Extremities: No edema Neurological: Neuro grossly intact Psych/Mental Status: Normal Affect Comment: Right radial artery: Pulse 2+/4+: No bruits: No hematoma Laboratory Results 04/13/20 13:15: POC Glucose 176 H 04/13/20 16:40: Sodium 139, Potassium 4.3, Chloride 108 H, Carbon Dioxide 25.0, Anion Gap 6, BUN 18, Creatinine 1.06, Estim Creat Clear Calc 64.85, Est GFR (MDRD) Af Amer 89, Est GFR (MDRD) Non-Af 73, BUN/Creatinine Ratio 17.0, Glucose 161 H, Calcium 8.5, Magnesium 2.2 04/13/20 17:16: POC Glucose 150 H 04/13/20 21:11: POC Glucose 135 H 04/14/20 06:18: WBC 7.5, RBC 5.07, Hgb 15.9, Hct 46.8, MCV 92.3, MCH 31.4, MCHC 34.0, RDW Std Deviation 44.2 H, RDW Coeff of Braxton 13.2, Plt Count 137 L, MPV 10.6 04/14/20 06:18: Sodium 142, Potassium 3.8, Chloride 110 H, Carbon Dioxide 29.0, Anion Gap 3 L, BUN 18, Creatinine 1.10, Estim Creat Clear Calc 62.49, Est GFR (MDRD) Af Amer 85, Est GFR (MDRD) Non-Af 70, BUN/Creatinine Ratio 16.4, Glucose 88, Calcium 8.4 L, Total Bilirubin 1.30 H, AST 9 L, ALT 16, Alkaline Phosphatase 43 L, Total Protein 5.7 L, Albumin 3.4, Globulin 2.3, Albumin/Globulin Ratio 1.5 Current Medications Acetaminophen (Tylenol) 650 mg PO Q4H PRN PRN PRN Reason: pain 1-10 /fever Aspirin (Aspirin, Baby) 81 mg PO DAILY@0800 [facility] Last Admin: 04/14/20 08:25 Dose: 81 mg Documented by: Atropine Sulfate () 0.5 mg IV UD PRN PRN Reason: HR <50 bpm Carvedilol (Coreg) 12.5 mg PO BIDCM [facility] Last Admin: 04/14/20 08:26 Dose: 12.5 mg Documented by: Cholecalciferol (Vitamin D (25mcg)) 5,000 unit PO DAILY [facility] Last Admin: 04/14/20 08:26 Dose: 5,000 unit Documented by: Clopidogrel Bisulfate (Plavix) 75 mg PO DAILY [facility] Last Admin: 04/14/20 08:26 Dose: 75 mg Documented by: Ezetimibe (Zetia) 10 mg PO DAILY [facility] Last Admin: 04/14/20 08:26 Dose: 10 mg Documented by: Heparin Sodium (Beef Lung) (Heparin 500 Unit/5 Ml (100/Ml)) 500 unit IV UD PRN PRN Reason: HEPARIN FLUSH Sodium Chloride () 250 mls @ 15 mls/hr IV .[id number] PRN PRN Reason: Saline Flush Sodium Chloride () 250 mls @ 15 mls/hr IV .[id number] PRN PRN Reason: Additional IVPB Infusion Insulin Glargine (Lantus (Bkc)) 15 units SC QHS [facility] Last Admin: 04/13/20 21:14 Dose: 10 units Documented by: Insulin Human Lispro (Humalog Kwikpen ([facility])) 10 unit SC BID@1200,1700 [facility] Last Admin: 04/13/20 17:18 Dose: 10 units Documented by: Labetalol HCl (Trandate) 5 mg IV X1 PRN PRN Reason: SBP > 160 when pulling sheath Ramipril (Altace) 10 mg PO DAILY PRN PRN Reason: Hypertension Sodium Chloride () 10 - 40 ml IV UD PRN PRN Reason: SALINE FLUSH Sodium Chloride () 500 ml IV BOLUS PRN PRN Reason: VASO-VAGAL PROTOCOL Discharge Diet: Low fat/ Low Cholesterol Discharge Activity: May Not Drive - Do not drive: 48 hours, May Take a Tub Bath - May not take a tub bath for 7 days May shower in (days): 1 - No tub baths for 5 days May resume sexual activity in: 1-2 weeks Weight Bearing Status: - - Avoid heavy exertional activity pending outpatient follow-up Call your doctor if your incision/area has: Continuous Slow Oozing, Sudden Increased Bleeding, Increased Pain/ Swelling, Increased Redness, Foul Smelling Discharge, Swelling at the incision site Call your doctor if you observe: Fever of 101 or Higher, Shortness of breath, Chest pain Remove Dressing in (days):: 1 Cleanse incision/area with: Soap & Water Home Medications: Medications to take at Discharge Cholecalciferol (VIT D3) [Vitamin D3] 5,000 unit PO DAILY 11/01/16 Ramipril [Altace] 10 mg PO DAILY PRN 11/01/16 Aspirin [Aspirin, Baby] 81 mg PO DAILY@0800 #0 11/03/16 Carvedilol [Coreg (Beta Lalita)] 12.5 mg PO BID tab 11/03/16 ezetimibe 10 mg tablet 10 mg PO DAILY 06/14/19 insulin aspart U-100 100 unit/mL (3 mL) subcutaneous pen 10 unit SUBCUT BID ml 06/14/19 insulin glargine 100 unit/mL (3 mL) subcutaneous pen 15 unit SUBCUT QHS ml 06/14/19 metformin 500 mg tablet 2,000 mg PO DAILY tab 06/14/19 clopidogrel 75 mg tablet 75 mg PO DAILY #30 tab 03/23/20 Primary Care Physician: Kaycee Singer MD [Primary Care Provider] - Please Follow Up With: [facility] Additional Instructions: You will continue with Aspirin and Plavix therapy. If anyone asks you to stop your Plavix, please call the [facility] at [phone], option 4, first. You will be contacted by the [facility] in regards to routine follow-up in approximately 2-4 weeks. At that time we will consider readiness for cardiac rehab. If you have any questions or concerns at any point please call the [facility] at [phone], option 4. Disposition: Home Minutes spent on discharge:: 45 Patient Condition:: Stable Medical Necessity - Tobacco Use Smoking Status: Never smoker Meaningful Use Info Meaningful Use Diagnoses (Choose all that apply): None applicable
== END 2020-04-14 10:11 | disposition home or self-care (01) ==
LOC: CLSP 08:43 → PCU 04-16 08:46
PROVIDERS: Physician Assistant Medical; Specialist; PCP Internal Medicine; Referring Provider Internal Medicine Cardiovascular Disease; Visit Provider Internal Medicine Cardiovascular Disease
DX: I25.110 Atherosclerotic heart disease of native coronary artery with unstable angina pectoris (principal); R60.0 Localized edema; E78.2 Mixed hyperlipidemia; I11.0 Hypertensive heart disease with heart failure; I50.22 Chronic systolic (congestive) heart failure; E11.9 Type 2 diabetes mellitus without complications; C91.10 Chronic lymphocytic leukemia of B-cell type not having achieved remission; E66.01 Morbid (severe) obesity due to excess calories; Z68.33 Body mass index [BMI] 33.0-33.9, adult; Z95.5 Presence of coronary angioplasty implant and graft; Z86.73 Personal history of transient ischemic attack (TIA), and cerebral infarction without residual deficits; Z79.82 Long term (current) use of aspirin; Z79.4 Long term (current) use of insulin; Z79.899 Other long term (current) drug therapy
CPT/HCPCS: 36415; 71046; 80048; 80053; 82962; 83735; 85025; 85027; 85610; 85730; 92928; 93005; 93458; 99152; 99153; J7030; J7040; Q9967; C1725; C1769; C1874; C1887; C1894; C9600

== ENCOUNTER 2020-05-04 08:39 | Day surgery (SDC) | payer MEDICARE, OTHER, SELFPAY ==
[2020-04-13 12:38] VITALS: BMI 33.2
[2020-04-26 11:32] LABS: Hematocrit 44.9 % (40-54); Mean Corp Hgb Conc 33.4 g/dL (32-36); Mean Corpuscular Hgb 30.4 pg (27.0-32.0); Mean Corpuscular Volume 91.1 fL (80-94); Mean Platelet Vol. 10.1 fl (6.2-12.0); Platelet Count 160 K/mm3 (150-450); Prothrombin Time (Protime)PT. 12.8 SECONDS (11.7-14.9); RBC Distribution Width SD 43.8 fl (35.1-43.9); Red Blood Count 4.93 M/mm3 (4.6-6.2); White Blood Count 5.5 K/mm3 (4.4-11.0)
[2020-04-26 11:33] LABS: Partial Thromboplast Time 25.5 Seconds (24.1-36.2)
[2020-04-26 12:01] LABS: Anion Gap 8 (5-15); BUN 16 mg/dL (7-18); BUN/Creat Ratio 13.1 RATIO (10-20); Calcium,Total 8.4 mg/dL (8.5-10.1); Chloride 105 mmol/L (98-107); Creatinine, Serum 1.22 mg/dL (0.70-1.30); EST Glomerular Filtration Rate 62 mL/min (>60); Est Glom Filt Rate - Afr Amer 76 mL/min (>60); Glucose 244 mg/dL (74-106); Sodium Level 137 mmol/L (136-145)
[2020-05-03 07:45] VITALS: BMI 31.9
[2020-05-04] VITALS (24 sets, daily range): BP systolic 120–193; BP diastolic 69–95; PULSE 63–77; RESP 12–20; TEMP 36.3–36.7; O2SAT 95–97; BMI 32.8
--- NOTE | 2020-05-04 09:30 | HP.PCM_ITS ---
History and Physical Date of Admission: 05/04/20 Details: This is a 69-year-old gentleman that presents here today for a staged PCI. He has a history of coronary artery disease with stenting to his LAD and diagonal in 2012. He underwent stenting to LAD on 04/13/2020. He also has a history of hypertension, hyperlipidemia, PVCs, CLL, diabetes and remote history of CVA. Patient was seen in office on 03/05/2020. It was recommended he undergo an echocardiogram and stress test given it has been greater than 5 years since his last stress test and history of coronary artery disease. He underwent echocardiogram on 03/22/2020 that showed an ejection fraction 40% and wall motion changes. He underwent a stress test on 03/22/2020 that showed an area of stress- induced myocardial ischemia involving portions of the distal anterior, distal anteroseptal, and anterior apical/septal apical segments. He proceeded with heart catheterization on 04/13/2020 that resulted in drug- eluting stent and PTCA to the LAD. It was recommend he return for PCI to distal LCx. He presents today for such procedure. He denies chest, arm, jaw, or neck discomfort. His exercise tolerance is stable. He denies symptoms of CHF, palpitations, lightheadedness, dizziness, near syncope, or syncopal episodes. He denies edema or claudication issues. He denies orthopnea, PND, fever, chills, blood in urine, blood in stool, or myalgia. He continues with fatigue and lower extremity edema. 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 Is patient in pain?: No Allergies atorvastatin [From Lipitor] Allergy (Severe, Verified 03/13/20 08:52) Other pravastatin [From Pravachol] Allergy (Severe, Verified 03/13/20 08:52) Other rosuvastatin [From Crestor] Allergy (Severe, Verified 03/13/20 08:52) Other Nhzkamz-Zgc-Hiw Reductase Inhibitor Allergy (Severe, Verified 03/13/20 08:52) Other ciprofloxacin Adverse Reaction (Severe, Verified 03/13/20 08:52) dizziness, vomiting Medications See EMR [facility] Medical History Mixed hyperlipidemia (Chronic) Essential hypertension (Chronic) Presence of stent in coronary artery (Chronic ~02/20/13) Atherosclerotic heart disease of [place] coronary artery without angina pectoris (Chronic) Morbid obesity (Chronic) DM2 (diabetes mellitus, type 2) (Chronic) Chronic systolic CHF (congestive heart failure) (Chronic) Altered mental status (Chronic) CLL (chronic lymphocytic leukemia) (Chronic) History of pleural effusion (Acute) Diverticulosis (Chronic) Left pontine stroke (Chronic) Blood in the urine (Resolved) Surgical History Presence of coronary angioplasty implant and graft (Chronic ~02/20/13) History of bilateral cataract extraction (Resolved) Family History Mother CAD (coronary artery disease) Social History (Updated 03/13/20 @ 09:41 by RADHA Torres) Smoking Status: Never smoker alcohol intake: current substance use type: does not use caffeine: No ROS Const Const: Positive for fatigue; negative for weakness, fever(s) or headache(s) Eyes Eyes: Negative for blind spots, loss of peripheral vision or transient loss of vision ENT ENT: Positive for balance problems; negative for headache(s), dizziness, tinnitus or Nosebleed/epistaxis Cardio Chest Pain: No Palpitations: No Edema: Bilateral Muscle aches with walking: None Resp Respiratory: Positive for SOB with activity; negative for SOB at rest, SOB orthopnea\SOB lying down or Cough GI GI: Negative nausea, vomiting, heartburn or vomiting blood/hematemesis : Negative for hematuria Musc Musc: Positive for muscle aches/ myalgia, muscle weakness, joint pain and balance problems Neuro Neuro: Negative for dizziness, lightheadedness, near syncope, syncope, orthostatic symptoms, headache(s) or weakness Juan Manuel Hematologic/Lymphatic: Negative for easy bleeding Endo Endo: Positive for fatigue Cardiology Exam Const Appearance: cooperative, no acute distress, well developed and other (in WC with cane) Orientation: alert, awake and oriented x3 Head Head: normocephalic and atraumatic Mouth: moist mucous membranes Eyes General: appearance normal, both eyes and all related structures Conjunctivae: conjunctivae normal Pupils: PERRL EOM: EOM intact bilaterally Neck Neck: normal visual inspection, no lymphadenopathy and no JVD Carotids: Negative bruit Neck Mass: Negative Neck mass Chest Chest inspection: normal inspection of the chest and symmetric chest movement Auscultation: Bilateral: Clear to Auscultation Cardio Palpation: normal PMI Rate: regular rate Rhythm: regular rhythm Heart sounds: S1 normal and S2 normal; negative rub, gallop or murmur GI GI: normal to inspection, soft, no hepatosplenomegaly and bowel sounds present; negative tender Neuro General: alert, awake, oriented x3, CN's II-XI intact bilaterally and moves all extremities Extremities Pulses: Normal: Right Posterior Tibial Pulse, Left Posterior Tibial Pulse, Right Radial Pulse, Left Radial Pulse Lower Extremity Edema: +2: Bilateral, Color Changes: Bilateral Psych Psychological: normal affect Assessment & Plan 1. Atherosclerosis of [place] coronary artery of [place] heart without angina pectoris I25.10 Plan Patient presents today for staged stenting to LCx. He will proceed with such procedure. He will follow-up routinely on an outpatient setting to evaluate overall progress. 2. Essential hypertension I10 Plan Blood pressure is well controlled on current medications, we do not recommend any changes at this time. 3. Mixed hyperlipidemia E78.2 Plan This is managed by his PCP, he will continue with Zetia, he is intolerance to statins. 4. Edema R60.9 Plan This is improved. His most recent echocardiogram showed a reduced ejection fraction of 40%. This will be followed over time, his medications will be adjusted accordingly. Addendum 05/04/2020: Patient seen prior to procedure and no changes noted. Procedure Criteria Procedure Type: Elective COVID Risk Discussion: The surgeon/proceduralist and patient have discussed in detail the risk of exposure to and/or potential harm posed by the COVID-19 virus with having a surgery/procedure at this time versus the risk of delaying the surgery/procedure. It is not possible to know either the risk of delaying the surgery or procedure or chance of getting an infection with perfect accuracy, but a joint decision was made between the patient and the surgeon/proceduralist to proceed at this time with the scheduled surgery/procedure as indicated on the consent form.
--- NOTE | 2020-05-04 11:45 | EKG12_ITS ---
Test Reason : POST Blood Pressure : / mmHG Vent. Rate : 069 BPM Atrial Rate : 069 BPM P-R Int : 182 ms QRS Dur : 112 ms QT Int : 388 ms P-R-T Axes : 060 -40 011 degrees QTc Int : 415 ms Sinus rhythm with occasional Premature ventricular complexes Left axis deviation Abnormal ECG When compared with ECG of 14-APR-2020 05:11, No significant change was found Confirmed by HANNY MONTANA, ERIKA ([id number]), brands editor MASHA TERRY ([id number]) on 05/11/2020 1:09:22 PM Referred By: Monica Mcgarry Confirmed By:ERIKA GAMINO MD
--- NOTE | 2020-05-04 11:46 | CRPHASE1 ---
Patient Communication Former Patient:: Phase I - MAR 2020 STAGED PROCEDURE PHII Cardiac Rehab Discussed with Patient:: Yes Guide to Cardiac Rehab Given to Patient:: Yes Cardiac Rehab Facility Choice List Given to Patient:: Yes Choice Program [facility] CR PHII:: Communication Given to CR, Refer to [facility] Infection Control Preventionist:: Monica Mcgarry Risk Factors/Lifestyle Family History: Family History (Last Reviewed 03/13/20 @ 09:17 by Becca Steve PA, PA) Mother CAD (coronary artery disease) Cardiac Rehabilitation Info Cardiac Rehabilitation Program Information: Cardiac Rehabilitation is important for patients like you who are recovering from a heart problem. Cardiac rehabilitation programs are recognized as integral to the continued care of the patient with coronary heart disease. The cardiac rehabilitation program is designed to optimize a patient's physical, psychological, and social functioning. Health career development counselor work in cardiac rehabilitation programs and assist you with getting the treatments you need to get stronger and healthier - like exercise, healthy eating habits, and medications. Cardiac rehabilitation has been show to help people with heart problems live longer and have better life enjoyment than people who do not go to cardiac rehabilitation. Please contact the Cardiac Rehabilitation Program at [facility] at in two weeks if you have not heard from them.
--- NOTE | 2020-05-04 11:47 | CRPH1.INSTRU ---
General Education CAD and cardiac anatomy and function:: Not instructed Explanation of diagnoses and procedures:: Not instructed Sign/Symptoms of MS:: Not instructed Antiplatelet therapy: Not instructed Proper use of NTG-SL: Not instructed Emergency procedures and activation of EMS: Not instructed - PATIENT STAGED PCI WAS JUST SEEN MAR 2020 BY CR STAFF. Compliance of all prescribed medications: Not instructed
--- NOTE | 2020-05-04 11:48 | CL.I_ITS ---
Patient Name: JONNIE SARABIA Study Date: 05/04/2020 Performing: Lulú Mcgarry MD Ht: 71 inches 180 cm : 1950 Wt: 229.6 lbs 104 kg Age: 69 Gender: male BSA: 2.23 PROCEDURE(S) PERFORMED [id number] W OR WO PTCA, SINGLE CORONARY ARTERY CLINICAL PROFILE AND CO-MORBIDITIES Indications: Staged PCI of known LCx stenosis Heart Failure: None CAD Presentations: Unstable angina. CONCLUSIONS Successful LLUVIA to dLCx RECOMMENDATIONS DESCRIPTION OF PROCEDURE The patient arrived to the procedure lab. The risks and benefits of the procedure as well as a full d escription of our services here and current unavailability of surgical backup were fully explained to the patient and/or their significant other prior to the catheterization. The Timeout was completed, verifying the correct patient and procedure. The patient's procedural site was prepped and draped in the usual fashion. Local anesthetic was given subcutaneously to right radial region with Lidocaine 2% . Using a modified Seldinger technique, arterial access was obtained via the right radial artery, a 6 Fr sheath was inserted.. The images were reviewed and options discussed. A decision was then made to proceed with an Intervention, IVUS or other adjunct procedure. XB Guide catheter was inserted and engaged into the LCA. BMW Guide wire was advanced to the Circu mflex. 2x8 Emerge Balloon catheter was inserted. Balloon catheter was advanced across lesion in the c ircumflex, distal. PTCA balloon inflated at 6 atms for 8 secs. PTCA balloon inflated at 10 atms for 1 6 secs. Angiogram performed post balloon dilatation. 2.5x12 Synergy Drug Eluting stent was inserted. Drug Eluting stent was advanced across the lesion in the circumflex, distal. Angiogram performed post stent deployment. The arterial sheath was pulled and a TR Band was applied for hemostasis. 20cc of air INTERVENTION INFORMATION LESION SITE: Circumflex (Distal) Lesion Complexity: High/C, chronic total occlusion: No, lesion at bifurcation: No, thrombus present: No, lesion length: 11 mm, culprit lesion: Yes, Previously treated lesion: No Pre Stenosis: 95 % Pre intervention RONNIE flow: 3 PROCEDURE: Drug Eluting Stent with pre dilatation. Post Stenosis: 0 % Post intervention RONNIE flow: 3 Lesion Devices: Cardinal 6 Fr XB3.0 100cm Guide Catheter Robb .014 BMW [place] Straight 190cm Adolph Sci EMERGE MR 2.00x08 BALLOON Adolph Sci Synergy MR LLUVIA 2.50x12 COMPLICATIONS No Complications PROCEDURE MEDICATIONS Versed 1 mg IV Fentanyl 50 mcg IV Oxygen: 2 L/min via nasal cannula Baby Aspirin (81mg) 1 Tabs PO @ 05/04/2020 08:59:54 Heparin 4000 unit(s) IV 05/04/2020 10:58:09 Plavix 75 mg PO 05/04/2020 09:00:00 SUMMARY OF HEMODYNAMIC DATA Time AIR REST ECG 09:04:05 ECG 09:04:27 AO 127/89 (108) SA 10:59:44 AO 153/75 (107) 11:01:15 Signed By Lulú Mcagrry MD On 05/04/2020 11:47:36 Lulú Mcgarry MD
--- NOTE | 2020-05-04 12:14 | PCM.DC.CCA ---
Discharge Diet: Low fat/ Low Cholesterol May shower in (days): 1 - No tub baths for 5 days May resume sexual activity in: 1-2 weeks Lifting Restrictions: Do not lift anything greater than 10 pounds for 3 days Call your doctor if your incision/area has: Continuous Slow Oozing, Sudden Increased Bleeding, Increased Pain/ Swelling, Increased Redness, Foul Smelling Discharge, Swelling at the incision site Call your doctor if you observe: Fever of 101 or Higher, Shortness of breath, Chest pain Remove Dressing in (days):: 1 Cleanse incision/area with: Soap & Water Allergies/Adverse Reactions: Allergies atorvastatin [From Lipitor] Allergy (Severe, Verified 03/13/20 08:52) Other CAN'T MOVE pravastatin [From Pravachol] Allergy (Severe, Verified 03/13/20 08:52) Other CAN'T MOVE rosuvastatin [From Crestor] Allergy (Severe, Verified 03/13/20 08:52) Other CAN'T MOVE Munpkqz-Lvj-Qef Reductase Inhibitor Allergy (Severe, Verified 03/13/20 08:52) Other CAN'T MOVE ciprofloxacin Adverse Reaction (Severe, Verified 03/13/20 08:52) dizziness, vomiting Medications to take at Discharge Cholecalciferol (VIT D3) [Vitamin D3] 5,000 unit PO DAILY 11/01/16 Ramipril [Altace] 10 mg PO DAILY PRN 11/01/16 Aspirin [Aspirin, Baby] 81 mg PO DAILY@0800 #0 11/03/16 Carvedilol [Coreg (Beta Lalita)] 12.5 mg PO BID tab 11/03/16 ezetimibe 10 mg tablet 10 mg PO DAILY 06/14/19 insulin aspart U-100 100 unit/mL (3 mL) subcutaneous pen 10 unit SUBCUT BID ml 06/14/19 insulin glargine 100 unit/mL (3 mL) subcutaneous pen 15 unit SUBCUT QHS ml 06/14/19 metformin 500 mg tablet 2,000 mg PO DAILY tab 06/14/19 clopidogrel 75 mg tablet 75 mg PO DAILY #30 tab 03/23/20 Primary Care Physician: Kaycee Singer MD [Primary Care Provider] - Test Results: Test results from this visit will be discussed in further detail at your follow-up appointment, if applicable. Please Follow Up With: Loki Barrios - Nurse Practitioner with [facility] When: 05/09/2020 at 3:00 PM Proposed Discharge Date: 05/05/20 Cardiac Rehabilitation Info Cardiac Rehabilitation Program Information: Cardiac Rehabilitation is important for patients like you who are recovering from a heart problem. Cardiac rehabilitation programs are recognized as integral to the continued care of the patient with coronary heart disease. The cardiac rehabilitation program is designed to optimize a patient's physical, psychological, and social functioning. Health reproductive healthcare assistant work in cardiac rehabilitation programs and assist you with getting the treatments you need to get stronger and healthier - like exercise, healthy eating habits, and medications. Cardiac rehabilitation has been show to help people with heart problems live longer and have better life enjoyment than people who do not go to cardiac rehabilitation. Please contact the Cardiac Rehabilitation Program at [facility] at in two weeks if you have not heard from them.
--- NOTE | 2020-05-04 12:25 | PCM.PN.BLA ---
Progress Note Aspirin at discharge? Yes Antiplatelet therapy at discharge? Yes JAYASHREE/ARB at discharge? Yes Statin at discharge? Allergy and intolerance to statin medication. Currently on non-statin cholesterol-lowering medication. Beta-tanya at discharge? Yes STROKE Vital Signs/Narrative: Vital Signs Temp Pulse Resp BP Pulse Ox 05/04/20 12:00 73 18 166/88 H 96 05/04/20 11:45 97.6 F L 74 18 193/95 H 97
[2020-05-04] MEDS: 0.9% Normal Saline 1,000 ML 60 ML IV (12:30)
[2020-05-04 13:10] LABS: Bedside Glucose 145 mg/dL (70-110)
[2020-05-04] MEDS: Insulin Lispro 100 UNIT/ML INSULN.PEN 10 UNIT SC ×2 (13:48→17:10)
[2020-05-04] MEDS: Carvedilol 12.5 MG Tablet PO ×2 (13:48→21:30)
[2020-05-04] MEDS: Ramipril 10 MG Capsule PO (13:48)
[2020-05-04 17:25] LABS: Bedside Glucose 109 mg/dL (70-110)
[2020-05-04 22:21] LABS: Bedside Glucose 90 mg/dL (70-110)
[2020-05-05 02:09] VITALS: BP 167/77; PULSE 73; RESP 18; TEMP 36.7; O2SAT 97
[2020-05-05 03:00] VITALS: PULSE 71
[2020-05-05 06:15] VITALS: BP 174/80; PULSE 65; RESP 18; TEMP 36.3; O2SAT 96
[2020-05-05] MEDS: Ramipril 10 MG Capsule PO (06:46)
[2020-05-05 06:47] LABS: Hematocrit 47.5 % (40-54); Mean Corp Hgb Conc 33.7 g/dL (32-36); Mean Corpuscular Hgb 30.7 pg (27.0-32.0); Mean Corpuscular Volume 91.2 fL (80-94); Mean Platelet Vol. 10.1 fl (6.2-12.0); Platelet Count 160 K/mm3 (150-450); RBC Distribution Width CV 12.9 % (11.6-14.6); RBC Distribution Width SD 43.5 fl (35.1-43.9); Red Blood Count 5.21 M/mm3 (4.6-6.2); White Blood Count 6.6 K/mm3 (4.4-11.0)
[2020-05-05 06:55] LABS: Bedside Glucose 143 mg/dL (70-110)
[2020-05-05 06:56] VITALS: PULSE 74
[2020-05-05 07:12] LABS: ALB/GLOB Ratio 1.4 RATIO (0.9-2.4); AST(SGOT) 23 U/L (15-37); Alanine Aminotransfer ALT/SGPT 21 U/L (16-61); Albumin, Serum 3.6 g/dL (3.2-5.0); Alkaline Phosphatase 54 U/L (45-117); Anion Gap 7 (5-15); BUN 15 mg/dL (7-18); BUN/Creat Ratio 14.2 RATIO (10-20); Calcium,Total 8.3 mg/dL (8.5-10.1); Chloride 104 mmol/L (98-107); Creatinine, Serum 1.06 mg/dL (0.70-1.30); EST Glomerular Filtration Rate 73 mL/min (>60); Est Glom Filt Rate - Afr Amer 89 mL/min (>60); Estimated Creatinine Clearance 64.85 ml/min; Globulin 2.5 g/dL (2.2-4.2); Glucose 140 mg/dL (74-106); Potassium 3.9 mmol/L (3.5-5.1); Protein, Total 6.1 g/dL (6.4-8.2); Sodium Level 139 mmol/L (136-145)
[2020-05-05 07:30] VITALS: O2SAT 96
[2020-05-05] MEDS: Carvedilol 12.5 MG Tablet PO (08:31)
[2020-05-05] MEDS: Aspirin 81 MG TAB.CHEW PO (08:31)
[2020-05-05] MEDS: Ezetimibe 10 MG Tablet PO (08:32)
[2020-05-05] MEDS: Clopidogrel Bisulfate 75 MG Tablet PO (08:32)
--- NOTE | 2020-05-05 09:44 | PCM.PN.CARD ---
Subjectve: Patient seen and evaluated. Objective: Vital Signs Temp Pulse Resp BP Pulse Ox 97.4 F L 74 18 174/80 H 96 05/05/20 06:15 05/05/20 06:56 05/05/20 06:15 05/05/20 06:15 05/05/20 07:30 Oxygen Delivery Method Room Air Weight: 220 lb 3.869 oz Body Mass Index (BMI) 32.8 Intake and Output for Last 24 Hours 05/03/20 05/04/20 05/05/20 23:59 23:59 23:59 Intake Total 342 / 822 480 / 480 Output Total 1260 / 2110 2400 / 2400 Balance -918 / -1288 -1920 / -1920 General: Awake, Alert, Oriented x 3 HEENT: PERRL, EOMI, Sclera Non Icteric Neck: Supple, Good ROM, No Lymph Node Enlargement Lungs: Clear to auscultation Cardiovascular: Regular Rhythm, Normal S1, Normal S2, No Murmurs, No Rubs, No Gallops Vascular: No Carotid Bruits, Normal Femoral Pulses, Normal Radial Pulses, Normal Dorsalis Pedal Pulse, Normal Posterior Tibial Pulses Abdomen: Bowel Sounds Present, Soft, Non Tender, No HSM, No Organomegaly Extremities: No Cyanosis, No Clubbing, No edema Neurological: No Focal Motor or Sensory Deficit 05/05/20 05:55: WBC 6.6, RBC 5.21, Hgb 16.0, Hct 47.5, MCV 91.2, MCH 30.7, MCHC 33.7, Plt Count 160, MPV 10.1 05/05/20 05:55: Sodium 139, Potassium 3.9, Chloride 104, Carbon Dioxide 28.0, Anion Gap 7, BUN 15, Creatinine 1.06, Est GFR (MDRD) Af Amer 89, Est GFR (MDRD) Non-Af 73, BUN/Creatinine Ratio 14.2, Glucose 140 H, Calcium 8.3 L, Total Bilirubin 1.20 H Rhythm: EKG: ECHO: Stress Test: Cardiac Cath: PCI: CT Surgery: Holter monitor: EPS: PPM: CXR: Chest CT Scan: Medical Necessity - Tobacco Use Smoking Status: Never smoker Assessment/Plan Patient status post angioplasty and stenting of the circumflex artery. Patient doing well without any symptomatology. Plan is to discharge patient for outpatient follow-up.
[2020-05-05 10:00] VITALS: BP 133/61; PULSE 68; RESP 20; TEMP 36.7; O2SAT 96
--- NOTE | 2020-05-05 10:00 | EKG12_ITS ---
Test Reason : AM EKG Blood Pressure : / mmHG Vent. Rate : 066 BPM Atrial Rate : 066 BPM P-R Int : 180 ms QRS Dur : 104 ms QT Int : 424 ms P-R-T Axes : 042 -36 -09 degrees QTc Int : 444 ms Normal sinus rhythm Left axis deviation Abnormal ECG When compared with ECG of 04-MAY-2020 12:33, MANUAL COMPARISON REQUIRED, DATA IS UNCONFIRMED Confirmed by PAO MONTANA, SHERINE ([id number]), editor farm journal MASHA TERRY ([id number]) on 05/17/2020 1:07:37 PM Referred By: Monica Mcgarry Confirmed By:CALIN MCGARRY MD
== END 2020-05-05 09:43 | disposition home or self-care (01) ==
LOC: CLSP 08:40 → PCU 05-07 08:03
PROVIDERS: Internal Medicine Cardiovascular Disease; PCP Internal Medicine; Referring Provider Specialist; Visit Provider Specialist
DX: I25.110 Atherosclerotic heart disease of native coronary artery with unstable angina pectoris (principal); E78.5 Hyperlipidemia, unspecified; C91.10 Chronic lymphocytic leukemia of B-cell type not having achieved remission; E11.9 Type 2 diabetes mellitus without complications; Z86.73 Personal history of transient ischemic attack (TIA), and cerebral infarction without residual deficits; I11.0 Hypertensive heart disease with heart failure; I50.22 Chronic systolic (congestive) heart failure; Z95.5 Presence of coronary angioplasty implant and graft
CPT/HCPCS: 36415; 80048; 80053; 82962; 85027; 85610; 85730; 92928; 93005; 99152; 99153; J7030; J7040; Q9967; C1725; C1769; C1887; C1894; C9600

== ENCOUNTER 2020-09-20 09:11 | Emergency (ER) | payer MEDICARE, OTHER, SELFPAY ==
[2020-08-03 14:39] VITALS: BMI 33.2
[2020-09-20 09:12] VITALS: BMI 35.4
[2020-09-20 09:13] VITALS: BP 180/120; PULSE 87; RESP 16; TEMP 36.4; O2SAT 97; BMI 35.4
--- NOTE | 2020-09-20 09:22 | RAD_ITS ---
STUDY: X-RAY CHEST REASON FOR EXAM: Male, 69 years old. NEURO DEFICIT, ACUTE , STROKE SUSPECTED. NO CHEST COMPLAINTS. HX [place] TECHNIQUE: Single AP portable view of the chest. COMPARISON: Comparison is made with prior study dated 03/27/2020. FINDINGS: EKG electrodes are seen. The lungs are clear and expanded. There is no demonstrated pleural abnormality. Normal size heart. Normal mediastinum and adrianna. Normal visualized pulmonary arteries. There is atherosclerotic calcification of the aortic arch with tortuosity. Normal visualized thoracic spine. Normal visualized ribs, clavicles, and shoulders. There is no demonstrated abnormality of the visualized soft tissue structures of the upper abdomen. RAD/Chest 1 View IMPRESSION: No acute abnormality is seen. Electronically Signed: Kaz Lee MD at 10:23 EST , Service support ,
--- NOTE | 2020-09-20 09:22 | EKG12_ITS ---
Test Reason : STROKE Blood Pressure : / mmHG Vent. Rate : 100 BPM Atrial Rate : 100 BPM P-R Int : 134 ms QRS Dur : 098 ms QT Int : 348 ms P-R-T Axes : 054 -40 036 degrees QTc Int : 448 ms Sinus rhythm with frequent Premature ventricular complexes in a pattern of bigeminy Left axis deviation Abnormal ECG Confirmed by MARIBEL MONTANA, JOSE ([id number]), editor department TIMOTEO MACHADO ([id number]) on 09/21/2020 11:15:55 AM Referred By: HARDEEP Confirmed By:JOSE LÓPEZ MD
--- NOTE | 2020-09-20 09:22 | CT_ITS ---
STUDY: CT HEAD STROKE PROTOCOL W/O CONTRAST INJECTION REASON FOR EXAM: Male, 69 years old. STROKE RADIATION DOSAGE (If Supplied By Facility): CTDIvol = ( 44.99 ) mGy, DLP = ( 846.73 ) mGycm TECHNIQUE: Transaxial CT imaging of the brain was performed without administration of intravenous contrast material. Individualized dose optimization techniques were used for this CT. COMPARISON: Comparison is made with prior study 11/13/2011. FINDINGS: Normal soft tissue structures. Normal calvarium. There is mild cerebral atrophy with widening of the extra-axial spaces and ventricular dilatation. There are areas of decreased attenuation within the white matter tracts of the supratentorial brain, consistent with microvascular disease changes. Tiny old lacunar infarct in the right basal ganglion. Normal brainstem. Normal cerebellum. There is no intracranial hemorrhage. There are no findings of an acute ischemic infarction. Atherosclerotic calcification of the cavernous portions of the internal carotid arteries bilaterally. Partial opacification of the left maxillary sinus. Mucosal thickening of the right maxillary sinus. CT/STROKE Brain/Head without Cont IMPRESSION: Chronic involutional changes of the brain. N.B. : The above information has been verbally conveyed by Kaz Lee MD to Dr Shivam DO, on 09/20/2020 09:45:15 (ET). Electronically Signed: Kaz Lee MD at 9:46 EST , Service support ,
--- NOTE | 2020-09-20 09:23 | CT_ITS ---
STUDY: CTA HEAD AND NECK WITH CONTRAST REASON FOR EXAM: Male, 69 years old. STROKE RADIATION DOSAGE (If Supplied By Facility): CTDIvol = ( 29 ) mGy, DLP = ( 785.30 ) mGycm TECHNIQUE: CT angiography was performed with a multi-detector CT scanner. Data acquisition was obtained from the skull base through the vertex following intravenous administration of IV 100mL Isovue-370. MIP images were reconstructed from the axial data set. Post-processing of the angiographic images was performed, with multiplanar reformation and 3D reconstruction. Individualized dose optimization techniques were used for this CT. COMPARISON: No relevant priors. FINDINGS: Normal bilateral petrous carotid arteries. There is calcified plaque formation of the right cavernous carotid artery, without a cross-sectional luminal stenosis. There is calcified plaque formation of the left cavernous carotid artery, without a cross-sectional luminal stenosis. Normal right A1 segments of the anterior cerebral artery. Normal left A1 segments of the anterior cerebral artery. Normal intact anterior communicating artery (ACOM). Normal bilateral A2 segments of the anterior cerebral arteries. Normal right M1 and M2 segments of the middle cerebral arteries, with a normal M1 bifurcation. Normal left M1 and M2 segments of the middle cerebral arteries, with a normal M1 bifurcation. Normal right posterior communicating artery (PCOM). Normal left posterior communicating artery (PCOM). Normal bilateral vertebral arteries. Normal basilar artery with a normal basilar bifurcation. The visualized bilateral superior cerebellar (SCA) arteries are normal. Normal bilateral P1, P2 and visualized P3 segments of the posterior cerebral arteries. There is no demonstrated aneurysm of the [place]. There is no demonstrated abnormality of the visualized brain. AORTIC ARCH: There is atherosclerotic calcific plaque formation of the aortic arch and great vessels arising from the aortic arch, without a hemodynamically significant stenosis. There is a normal origin of the brachiocephalic, left common carotid, and left subclavian arteries. Atherosclerotic calcification at the origin of the left common carotid artery and left subclavian artery. RIGHT CAROTID ARTERIES: Normal right common carotid artery (CCA). Normal right common carotid bulb. There is moderate atherosclerotic plaque formation of the origin of the right internal carotid artery with an estimated stenosis of 50-69% stenosis. Normal visualized cervical portion of the right internal carotid artery. Normal origin of the right external carotid artery (ECA). LEFT CAROTID ARTERIES: Normal left common carotid artery (CCA). Normal left common carotid bulb. There is mild atherosclerotic plaque formation of the origin of the left internal carotid artery with less than 50% cross sectional diameter stenosis. Normal visualized cervical portion of the left internal carotid artery. Normal origin of the left external carotid artery (ECA). VERTEBRAL ARTERIES: Normal bilateral vertebral arteries. CT/STROKE CTA Head AND Neck W/Con IMPRESSION: Calcific plaque at the origin of the right internal carotid artery causing 50-69% narrowing. No significant stenosis at the origin of the left internal carotid artery. N.B. : The above information has been verbally conveyed by Kaz Lee MD to Mi Martinez on 09/20/2020 09:51:38 (ET). Electronically Signed: Kaz Lee MD at 9:52 EST , Service support ,
--- NOTE | 2020-09-20 09:31 | ED.DCSUM_ITS ---
- ER Visit Summary Date of Service: 09/20/20 Chief Complaint: [Weakness left side and slurred speech] History of Present Illness: The patient is a 69 M [Zentz to the emergency department with an episode of weakness and slurred speech that initially occurred yesterday morning and resolved. This morning once again he checked his blood sugar and it was 80 so he prepared to eat some breakfast. Approximately 8:20 AM patient started feeling like he was having a hard time swallowing and the left side seemed weak. Patient had slurred speech. Symptoms lasted about 20 minutes or so and then resolved. Currently patient states that he feels great. Patient has had history of prior stroke in 2011. Patient has history of coronary artery disease, diabetes, hypertension, and high cholesterol. Patient has history of CLL. Denies recent illness. No Covid exposures or symptoms. Patient has no complaints currently.] Physical Examination: [HEENT-PERRLA, EOMI. Cranial nerves II through XII grossly intact. TMs clear. Mucous membranes moist. No adenopathy. Cardiovascular-regular rate and rhythm without murmur or ectopy Lungs-clear to auscultation, chest wall stable without crepitus or subcu emphysema Abdomen-normoactive bowel sounds, soft, nontender, no rebound or rigidity, no peritoneal signs. Neuro mklx-psvulk-uwcy and heel patel testing within normal limits, negative Romberg, negative , Fundi benign. NIH stroke scale was 0. Extremities-intact ?4, normal range of motion, normal pulses, atraumatic] Test Results: [CT scan of the brain without contrast on arrival showed chronic involutional changes otherwise nothing acute. Patient had CTAs of the head and neck which showed right internal carotid artery stenosis of 50 to 69% otherwise nothing significant. Patient had a 6 EKG on arrival that showed a sinus rhythm with a ventricular rate of 100 bpm with frequent PVCs and bigeminy pattern. CBC with differential is normal. Chemistries unremarkable. Glucose was 243. INR was 1.1. Troponin less than 0.015. Chest x-ray ordered and interpreted by myself as no acute disease process. There is no evidence of infiltrate. No pneumomediastinum. Official interpretation pending from radiology..] Emergency Department Course and Treatment: [IV line established on arrival. Patient placed on terminal operations manager. Stroke team was called and neurologist recommended admission for further stroke work-up. Patient is not a TPA candidate as he had symptoms yesterday as well as today that have resolved with an NIH stroke scale of 0.] Treatment Plan: [I discussed case with hospitalist who asked that I discussed with [facility] neurologist again given the findings of CTA showing 50 to 69% stenosis in the right internal carotid artery. [facility] neurologist recommended transfer to their facility for further evaluation given that patient has had multiple symptoms now of what sounds like TIA type symptoms.] Disposition: [Transfer to [facility] for definitive care] Impression: [TIA Hypertension] This note was generated with [employer] dictation software. It may contain incorrect words, spelling, and punctuation that were not noted in review of the chart prior to signing ED Disposition - Plan for ED Patient: Referrals: Kaycee Singer MD [Primary Care Provider] -
[2020-09-20 09:36] LABS: Absolute Lymphocyte Count 2.63 X10^3/uL (0.83-4.51); Absolute Neutrophil Count 3.3 X10^3/uL (2.0-7.7); Basophil# 0.04 X10^3/uL; Basophil% 0.6 % (0-1); Eosinophil# 0.26 X10^3/uL; Eosinophils% 3.9 % (0-5); Hematocrit 49.1 % (40-54); Hemoglobin 16.7 g/dL (13.0-16.5); Lymphocyte # 2.63 X10^3/ul (4.0); Lymphocyte % 39.3 % (19-41); Mean Corpuscular Hgb 31.3 pg (27.0-32.0); Mean Corpuscular Volume 91.9 fL (80-94); Mean Platelet Vol. 10.1 fl (6.2-12.0); Monocyte# 0.37 X10^3/uL; Monocyte% 5.5 % (0-10); NRBC Flagged by Analyzer 0 % (0-5); Neutrophil % 49.4 % (47-70); Platelet Count 169 K/mm3 (150-450); RBC Distribution Width SD 43.9 fl (35.1-43.9); Red Blood Count 5.34 M/mm3 (4.6-6.2); White Blood Count 6.7 K/mm3 (4.4-11.0)
--- NOTE | 2020-09-20 09:36 | NURSING ---
0925 STROKE ALERT CALLED
[2020-09-20 09:39] VITALS: BP 203/117; PULSE 97; RESP 21; TEMP 36.4; O2SAT 99
[2020-09-20 09:41] LABS: International Normalized Ratio 1.1; Partial Thromboplast Time 25.3 Seconds (24.1-36.2); Prothrombin Time (Protime)PT. 13.3 SECONDS (11.7-14.9)
[2020-09-20 09:49] LABS: Anion Gap 5 (5-15); BUN 22 mg/dL (7-18); BUN/Creat Ratio 17.6 RATIO (10-20); Calcium,Total 8.7 mg/dL (8.5-10.1); Chloride 104 mmol/L (98-107); Creatinine, Serum 1.25 mg/dL (0.70-1.30); EST Glomerular Filtration Rate 61 mL/min (>60); Est Glom Filt Rate - Afr Amer 73 mL/min (>60); Glucose 243 mg/dL (74-106); Potassium 4.4 mmol/L (3.5-5.1); Sodium Level 136 mmol/L (136-145)
[2020-09-20] MEDS: 0.9% Normal Saline 1,000 ML 100 ML IV (09:53)
[2020-09-20 10:05] LABS: Bedside Glucose 213 mg/dL (70-110)
--- NOTE | 2020-09-20 10:30 | NURSING ---
CALLED [facility]. ETA IS 30 MIN
[2020-09-20 11:43] VITALS: BP 157/65; PULSE 96; RESP 17; O2SAT 98
== END 2020-09-20 11:15 | disposition short-term general hospital (02) ==
PROVIDERS: Emergency Provider Emergency Medicine; PCP Internal Medicine
DX: G45.9 Transient cerebral ischemic attack, unspecified (principal); I65.21 Occlusion and stenosis of right carotid artery; I10 Essential (primary) hypertension; I25.10 Atherosclerotic heart disease of native coronary artery without angina pectoris; E11.9 Type 2 diabetes mellitus without complications; E78.00 Pure hypercholesterolemia, unspecified; Z86.73 Personal history of transient ischemic attack (TIA), and cerebral infarction without residual deficits
CPT/HCPCS: 70450; 70496; 70498; 71045; 80048; 82962; 84484; 85025; 85610; 85730; 93005; 96360; 99285; J7030; Q9967; A4216

== ENCOUNTER → 2021-02-01 12:57 | Outpatient (CLI) | payer MEDICARE, OTHER, SELFPAY ==
[2020-12-14 15:27] VITALS: BMI 32.6
--- NOTE | 2021-02-01 13:00 | CDU_ITS ---
Reason For Study: Carotid stenosis Rt. Velocities/BP Lt. Velocities/BP Prox CCA 89.1/3 cm/sec. Prox CCA 134.8/12.6 cm/sec. Mid CCA 98.2/9.5 cm/sec. Mid CCA 123.3/12 cm/sec. Dist CCA 116.5/8.2 cm/sec. Dist CCA 121.5/6.6 cm/sec. Prox ICA 106.5/13.3 cm/sec. Prox ICA 114.2/19.3 cm/sec. Mid ICA 121.1/17 cm/sec. Mid ICA 110.6/12 cm/sec. Dist ICA 90/9.7 cm/sec. Dist ICA 107/12 cm/sec. Rt. ICA/CCA = 1.23. Lt. ICA/CCA = 0.93. Prox ECA 146.7/2.4 cm/sec. Prox ECA 132.5 cm/sec. Rt. Vert. 50.9/8.1 cm/sec. Lt. Vert. 62.2/6.2 cm/sec. Right Extracranial There is homogeneous, smooth atherosclerotic plaque noted in the right common carotid artery. There is heterogeneous, irregular atherosclerotic plaque noted in the right internal carotid artery. There is homogeneous, smooth atherosclerotic plaque noted in the right external carotid artery. Antegrade flow is noted in the right vertebral artery. Left Extracranial There is homogeneous, smooth atherosclerotic plaque noted in the left common carotid artery. There is heterogeneous, irregular atherosclerotic plaque noted in the left internal carotid artery. There is homogeneous, smooth atherosclerotic plaque noted in the left external carotid artery. Antegrade flow is noted in the left vertebral artery. Procedure Carotid Duplex 27996. This is a Carotid Duplex examination using B-mode, color flow and specral Doppler. Exam performed in department. VL/Carotid Duplex Ultrasound Interpretation Summary Irregular calcific plaque at the proximal right internal carotid artery with le ss than 50% stenosis Less than 50% stenosis right external carotid artery Irregular plaque at the proximal left internal carotid artery with less than 50 % stenosis Less than 50% stenosis left external carotid artery Patent and antegrade vertebral arteries bilaterally Ordering Physician: Familia Acosta Referring Physician: Kaycee Singer M.D. Performed By: Verona Krishnan RVT and Student
== END ==
PROVIDERS: PCP Internal Medicine; Referring Provider Surgery; Visit Provider Surgery
DX: I65.21 Occlusion and stenosis of right carotid artery (principal)
CPT/HCPCS: 93880

== ENCOUNTER → 2021-03-30 07:11 | Outpatient (CLI) | payer MEDICARE, OTHER, SELFPAY ==
[2021-02-08 05:51] VITALS: BMI 34.7
[2021-03-30 08:04] LABS: Anion Gap 4 (5-15); BUN 19 mg/dL (7-18); BUN/Creat Ratio 20.6 RATIO (10-20); Calcium,Total 8.7 mg/dL (8.5-10.1); Chloride 109 mmol/L (98-107); Creatinine, Serum 0.92 mg/dL (0.70-1.30); EST Glomerular Filtration Rate 86 mL/min (>60); Est Glom Filt Rate - Afr Amer 104 mL/min (>60); Glucose 97 mg/dL (74-106); PSA,Total- Diagnostic 0.34 ng/mL (0.0-4.0); Potassium 4.1 mmol/L (3.5-5.1); Sodium Level 140 mmol/L (136-145)
== END ==
PROVIDERS: PCP Internal Medicine; Referring Provider Urology; Visit Provider Urology
DX: C61 Malignant neoplasm of prostate (principal)
CPT/HCPCS: 36415; 80048; 84153

== ENCOUNTER → 2022-02-13 | Outpatient (CLI) | payer MEDICARE, OTHER, SELFPAY ==
--- NOTE | 2022-02-13 08:49 | ECHOD_ITS ---
Reason For Study: CAD/ASHD Procedure This was a 2D Doppler, Color Flow transthoracic echocardiogram. The study was technically difficult. Contrast injection was performed. Exam performed in department. Left Ventricle Normal LV size. Sigmoid septum. Apical false tendon noted. Mild segmental systolic dysfunction (see wall motion). The estimated ejection fraction is 50 %. Diastolic function is indeterminate. Infero- Basal: Hypokinetic. Mid-Posterior: Hypokinetic. Mid-Inferior: Hypokinetic. Mid-inferoseptal : Hypokinetic. Inferior [place] : Hypokinetic. Septal [place] : Hypokinetic. Right Ventricle Normal RV size. A calcified moderator band is seen in the right ventricle. Normal systolic function. Atria Normal left atrium. Normal right atrium. No doppler evidence for ASD. Mitral Valve There is no mitral annular calcification. Normal mitral valve. Trivial mitral valve insufficiency. Tricuspid Valve Normal tricuspid valve. Trivial tricuspid valve insufficiency. Right ventricular systolic pressure estimated to be 23 mmHg. Aortic Valve The aortic valve is not well visualized. Pulmonic Valve The pulmonic valve is not well visualized. Great Vessels The aortic root is not well visualized. Pericardium/Pleural No pericardial effusion. Medication 22 gauge I.V. with prn adaptor inserted into right arm. Diluted definity 2ml given slow IV push to enhance endocardial definition. MMode/2D Measurements & Calculations RVDd: 3.8 cm LAV(MOD-sp4): 29.8 ml LA A4 area: 13.4 cm2 RA A4 area: 11.1 cm2 Doppler Measurements & Calculations MV E max mrain: 61.7 cm/sec Lat Peak E' Marin: 7.9 cm/sec Med Peak E' Marin: 4.6 cm/sec MV A max marin: 94.8 cm/sec E/E' lat: 7.8 E/E' med: 13.5 MV E/A: 0.65 Ao V2 max: 109.8 cm/sec LV V1 max: 93.8 cm/sec TR max marin: 220.9 cm/sec Ao max P.8 mmHg LV V1 max P.5 mmHg TR max P.5 mmHg ECHO/Echo Complete W/ Contrast Interpretation Summary The study was technically difficult. Contrast injection was performed. Mild segmental systolic dysfunction (see wall motion). The estimated ejection fraction is 50 %. Sigmoid septum. Apical false tendon noted. A calcified moderator band is seen in the right ventricle. Trivial mitral valve insufficiency. Trivial tricuspid valve insufficiency. Right ventricular systolic pressure estimated to be 23 mmHg. Diastolic function is indeterminate. Ordering Physician: Ru Alexander Referring Physician: Kaycee Singer M.D. Performed By: Johanna Jose RCS
== END | disposition home or self-care (01) ==
LOC: CVS 08:44
PROVIDERS: PCP Internal Medicine; Visit Provider Internal Medicine Cardiovascular Disease
DX: I25.10 Atherosclerotic heart disease of native coronary artery without angina pectoris (principal)
CPT/HCPCS: 93306; Q9957; A4216; C8929

== ENCOUNTER → 2022-02-28 | Outpatient (CLI) | payer MEDICARE, OTHER, SELFPAY ==
--- NOTE | 2022-02-28 13:08 | VDLE_ITS ---
Reason For Study: Swellinge RIGHT LEFT GSV is normal. GSV is normal. CFV is compressible, spontaneous, phasic, CFV is compressible, spontaneous, phasic, competent and demonstrates normal competent, and demonstrates normal augmentation. augmentation. FV is compressible, spontaneous, phasic, FV is compressible, spontaneous, phasic, competent and demonstrates normal competent and demonstrates normal augmentation. augmentation. POP V is compressible, spontaneous, phasic, POP V is compressible, spontaneous, phasic, competent and demonstrates normal competent and demonstrates normal augmentation. augmentation. T/P Trunk is compressible. T/P Trunk is compressible. PTV is compressible. PTV is compressible. RT PerV is compressible. LT PerV is compressible. Procedure This is a venous duplex using B-mode, color flow and spectral Doppler. Exam performed in department. A preliminary report was called and/or faxed to [facility]. VL/Venous Duplex US - Geraldo Extrem Interpretation Summary No evidence for acute deep venous thrombosis bilateral lower extremities with p atent and compressible bilateral great saphenous veins. Ordering Physician: Ru Alexander Referring Physician: Kaycee Singer M.D. Performed By: Verona Krishnan RVT
== END | disposition home or self-care (01) ==
LOC: CVS 12:44
PROVIDERS: PCP Internal Medicine; Referring Provider Internal Medicine Cardiovascular Disease; Visit Provider Internal Medicine Cardiovascular Disease
DX: R60.0 Localized edema (principal)
CPT/HCPCS: 93970

== ENCOUNTER → 2023-01-09 | Outpatient (CLI) | payer MEDICARE, OTHER, SELFPAY ==
--- NOTE | 2023-01-09 12:50 | ECHOD_ITS ---
Reason For Study: Syncope Procedure This was a 2D Doppler, Color Flow transthoracic echocardiogram. Exam performed in department. Left Ventricle Normal LV size. Left ventricular systolic function is normal. The estimated ejection fraction is 55 %. Stage 1 diastolic dysfunction. Infero-Basal: Hypokinetic. Right Ventricle Normal RV size. Normal systolic function. Atria Normal left atrium. Normal right atrium. Mitral Valve Normal mitral valve. Aortic Valve Normal aortic valve. Pulmonic Valve Normal pulmonic valve. Great Vessels Normal aortic root. The pulmonary artery is normal size. Normal inferior vena cava. Pericardium/Pleural No pericardial effusion. MMode/2D Measurements & Calculations LVIDd: 4.2 cm IVSd: 1.2 cm Ao root diam: 3.6 cm LVIDs: 2.8 cm LVPWd: 1.1 cm LA dimension: 3.4 cm FS: 34.8 % LAV(MOD-bp): 34.1 ml LA A4 area: 14.5 cm2 RA A4 area: 12.3 cm2 LAV(MOD-bp) Indexed: 16.5 ml/m2 LAV(MOD-sp2): 34.7 ml LAV(MOD-sp4): 32.2 ml Time Measurements MV dec time: 0.31 sec Doppler Measurements & Calculations MV E max marin: 59.1 cm/sec Lat Peak E' Marin: 7.3 cm/sec Med Peak E' Marin: 6.0 cm/sec MV A max marin: 86.7 cm/sec E/E' lat: 8.1 E/E' med: 9.9 MV E/A: 0.68 MV V2 max: 89.3 cm/sec MV P1/2t max marin: 66.3 cm/sec Ao V2 max: 93.5 cm/sec MV max P.2 mmHg MV P1/2t: 99.5 msec Ao max P.5 mmHg MV V2 mean: 51.6 cm/sec Ao V2 mean: 64.5 cm/sec MV mean P.2 mmHg MV dec slope: 195.1 cm/sec2 Ao mean P.9 mmHg MV V2 VTI: 25.1 cm MVA(P1/2t): 2.2 cm2 Ao V2 VTI: 20.9 cm AV (velocity ratio): 0.65 LV V1 max: 69.5 cm/sec PA V2 max: 105.9 cm/sec TR max marin: 167.3 cm/sec LV V1 max P.9 mmHg TR max P.2 mmHg LV V1 mean P.1 mmHg LV V1 mean: 50.2 cm/sec LV V1 VTI: 13.7 cm ECHO/Echo Complete Interpretation Summary Normal LV size. Left ventricular systolic function is normal. The estimated ejection fraction is 55 %. Infero-Basal: Hypokinetic Stage 1 diastolic dysfunction. Ordering Physician: Becca Steve Referring Physician: Kaycee Singer M.D. Performed By: Rishabh Capellan RCS
== END | disposition home or self-care (01) ==
LOC: CVS 12:49
PROVIDERS: PCP Internal Medicine; Referring Provider Physician Assistant Medical; Visit Provider Physician Assistant Medical
DX: R55 Syncope and collapse (principal); I25.10 Atherosclerotic heart disease of native coronary artery without angina pectoris
CPT/HCPCS: 93225; 93226; 93306

== ENCOUNTER 2023-04-24 14:56 | Emergency (ER) | payer MEDICARE, OTHER, SELFPAY ==
[2023-04-24 14:59] VITALS: BP 205/96; PULSE 95; RESP 21; TEMP 36.4; O2SAT 99; BMI 31.0
[2023-04-24 15:03] VITALS: BP 196/91; PULSE 92; PULSE 94; RESP 15; RESP 17; TEMP 36.4; O2SAT 99
--- NOTE | 2023-04-24 15:05 | EKG12_ITS ---
Test Reason : GENERAL Blood Pressure : / mmHG Vent. Rate : 094 BPM Atrial Rate : 094 BPM P-R Int : 190 ms QRS Dur : 112 ms QT Int : 336 ms P-R-T Axes : 068 -37 060 degrees QTc Int : 420 ms Normal sinus rhythm Left axis deviation Incomplete left bundle branch block Abnormal ECG Confirmed by HANNY MONTANA, ERIKA [id number]), rewrite editor LEIGH ANN MARTINEZ ([id number]) on 04/30/2023 2:21:00 PM Referred By: Confirmed By:ERIKA GAMINO MD
[2023-04-24 15:19] LABS: Absolute Lymphocyte Count 2.06 X10^3/uL (0.83-4.51); Absolute Neutrophil Count 4.3 X10^3/uL (2.0-7.7); Basophil# 0.04 X10^3/uL; Basophil% 0.6 % (0-1); Eosinophil# 0.28 X10^3/uL; Eosinophils% 3.9 % (0-5); Hematocrit 47.5 % (40-54); Lymphocyte # 2.06 X10^3/ul (0.83-4.51); Lymphocyte % 28.3 % (19-41); Mean Corp Hgb Conc 33.7 g/dL (32-36); Mean Corpuscular Hgb 30.8 pg (27.0-32.0); Mean Corpuscular Volume 91.5 fL (80-94); Mean Platelet Vol. 8.9 fl (6.2-12.0); Monocyte# 0.51 X10^3/uL; NRBC Flagged by Analyzer 0 % (0-5); Neutrophil % 59.1 % (47-70); Platelet Count 203 K/mm3 (150-450); RBC Distribution Width CV 12.4 % (11.6-14.6); RBC Distribution Width SD 41.9 fl (35.1-43.9); Red Blood Count 5.19 M/mm3 (4.6-6.2); White Blood Count 7.3 K/mm3 (4.4-11.0)
--- NOTE | 2023-04-24 15:21 | ED.VIS.GI ---
HPI HPI - GI History of Present Illness Chief Complaint: Abd Pain Narrative Narrative: 72-year-old male presenting with abdominal pain. He states his lower abdominal pain and its across his lower abdomen. Patient also has a lot of belching today. Whole episode started out 2 hours ago. Patient states he had 2 glasses of milk prior to this. No fevers, chills. He is nauseous without vomiting. Denies any abdominal surgeries. Does have history of cardiac disease, hyperlipidemia, hypertension, diabetes. Patient states that he has had constipation issues over the last couple of months but he is taken several doses of stool softener and last bowel movement was yesterday. [facility] Medical History Altered mental status Atherosclerotic heart disease of [place] coronary artery without angina pectoris Blood in the urine Chronic systolic CHF (congestive heart failure) CLL (chronic lymphocytic leukemia) CVA (cerebral vascular accident) Diverticulosis DM2 (diabetes mellitus, type 2) Essential hypertension History of pleural effusion Left pontine stroke Mixed hyperlipidemia Morbid obesity Presence of stent in coronary artery (~05/04/20) Stenosis of right carotid artery Syncope Home Medications aspirin 81 mg chewable tablet 81 mg PO DAILY@0800 ##0 11/03/16 [Rx Last Taken 04/13/20] carvedilol 12.5 mg tablet 12.5 mg PO BID 11/03/16 [Rx Last Taken 04/13/20] ezetimibe 10 mg tablet (Zetia) 10 mg PO DAILY cholesterol 06/14/19 [History Last Taken 04/12/20] metformin 500 mg tablet (Glucophage) 2,000 mg PO DAILY 06/14/19 [History Last Taken 05/03/20] ramipril 10 mg capsule 10 mg PO DAILY 06/14/21 [History Last Taken Unknown] docusate sodium 100 mg capsule (Colace) 100 mg PO BID PRN 01/24/22 [History Last Taken Unknown] insulin glargine 100 unit/mL (3 mL) subcutaneous pen 8 unit subcut QHS 01/24/22 [History Last Taken Unknown] potassium chloride 20 mEq tablet,extended release 20 meq PO DAILY #90 tabs 01/24/22 [Rx Last Taken Unknown] cholecalciferol (vitamin D3) 125 mcg (5,000 unit) capsule 125 mcg PO DAILY 12/26/22 [History Last Taken Unknown] furosemide 40 mg tablet 20 mg (1/2 x 40 mg) PO DAILY #90 tabs 12/26/22 [Rx Last Taken Unknown] insulin aspart U-100 100 unit/mL (3 mL) subcutaneous pen 5 unit subcut QAC 12/26/22 [History Last Taken Unknown] Allergy/AdvReac Type Severity Reaction Status Date / Time atorvastatin [From Lipitor] Allergy Severe Other Verified 04/24/23 15:02 pravastatin [From Pravachol] Allergy Severe Other Verified 04/24/23 15:02 rosuvastatin [From Crestor] Allergy Severe Other Verified 04/24/23 15:02 Lxirwli-FHY-KfN Reductase Allergy Severe Other Verified 04/24/23 15:02 Inhibitor [Fvuaesl-Ceq-Xrk Reductase Inhibitor] ciprofloxacin AdvReac Severe dizziness, Verified 04/24/23 15:02 vomiting Family History Mother CAD (coronary artery disease) CVA (cerebral vascular accident) Surgical History History of bilateral cataract extraction History of left hip replacement (~10/2021) Presence of coronary angioplasty implant and graft (~02/20/13) Social History Smoking Status: Never smoker alcohol intake: never substance use type: does not use caffeine: No ROS ROS ED Constitutional Constitutional ED: Denies chills, fever(s) or sweats Eyes Eyes: Denies blurry vision or change in vision ENT ENT ED: Denies ear pain or sore throat Cardiovascular Cardiovascular: Denies chest pain, palpitations or racing heartbeat Respiratory/Chest Respiratory/Chest: Denies cough, dyspnea or sputum Gastrointestinal Gastrointestinal: Reports abdominal pain, constipation, nausea and other Details: Belching ; Denies diarrhea or vomiting Genitourinary Genitourinary ED: Denies dysuria, hematuria or urinary frequency Musculoskeletal Musculoskeletal: Denies arthralgias, myalgias or neck pain Integumentary Denies abscess, Abrasions or rash Neurologic Neurologic: Denies headache(s), paresthesias or weakness Psychiatric Psychiatric: Denies anxiety, depression, suicidal ideation or suicidal thoughts Endocrine Endocrinology: Denies polydipsia or polyuria EXAM Physical Exam Const Vital Signs: 04/24/23 14:59 04/24/23 15:03 04/24/23 15:03 Temperature 97.5 F L 97.5 F L Temperature Source Temporal Temporal Pulse Rate 95 92 94 Respiratory Rate 21 H 17 15 Blood Pressure 205/96 H 196/91 H 196/91 H Blood Pressure Mean 132 126 126 Pulse Ox 99 99 99 Oxygen Delivery Method Room Air Room Air Room Air 04/24/23 16:23 04/24/23 16:30 04/24/23 18:56 Temperature 98.1 F Temperature Source Oral Pulse Rate 95 95 100 Respiratory Rate 17 14 19 H Blood Pressure 166/86 H 159/91 H 135/76 H Blood Pressure Mean 112 113 95 Pulse Ox 94 96 96 Oxygen Delivery Method Room Air Room Air Room Air 04/24/23 19:26 Temperature Temperature Source Pulse Rate 95 Respiratory Rate 16 Blood Pressure 145/73 H Blood Pressure Mean Pulse Ox 95 Oxygen Delivery Method Positive well nourished General Appearance ED: Negative for pallor HEENT normocephalic Resp normal respiratory effort Effort and Inspection: Negative for respiratory distress Cardio regular rate and regular rhythm GI Palpation: tender LLQ and RLQ; Negative for guarding or rigid Back/Spine no CVA tenderness Neuro Sensorium / Orientation: alert Motor Exam: strength 5/5 throughout Psych mental status grossly normal Skin General Skin Exam: Negative for jaundice or pallor MDM MDM MDM Narrative Medical decision making narrative: Patient with lower abdominal pain, nausea, constipation differential includes colitis, diverticulitis, constipation, UTI, pyelonephritis, dehydration, electrolyte abnormalities, hyperglycemia. Patient did complain of some dyspepsia and some excessive belching so I did obtain a troponin and EKG. CBC will be obtained to assess white blood cell count, hemoglobin, platelets. CMP to assess liver function and to assess renal function, electrolytes, glucose, anion gap. Lipase to assess for pancreatitis. Urinalysis to assess for UTI. CBC shows no leukocytosis. Hemoglobin hematocrit are stable. Platelets are normal. LFTs unremarkable. Renal function is normal. Urinalysis negative for infection. Lipase was 91 but not significantly elevated. High-sensitivity troponin 6. EKG sinus rhythm with ventricular rate of 94 bpm without signs of ischemic change or dysrhythmia. Patient initially medicated with morphine and Zofran and we obtained a CT of the abdomen pelvis with IV contrast. This shows stricture or contraction of the colon without evidence of obstruction. Patient also has a right inguinal hernia. This is nontender. At this point since his work-up is ultimately normal and his main complaint was of constipation I recommended stool softeners and laxatives for home. Again follow-up with general surgery given inguinal hernia. If he has worsening pain he should return to the ED. Impression: 1. Abdominal pain 2. Right inguinal hernia 3. Dyspepsia Lab Data Attestation: I reviewed the patient's lab results. Labs: Laboratory Results - last 24 hr 04/24/23 04/24/23 04/24/23 15:10 15:14 15:48 WBC 7.3 RBC 5.19 Hgb 16.0 Hct 47.5 MCV 91.5 MCH 30.8 MCHC 33.7 RDW Std Deviation 41.9 RDW Coeff of Braxton 12.4 Plt Count 203 MPV 8.9 Immature Gran % (Auto) 1.100 H Neut % (Auto) 59.1 Lymph % (Auto) 28.3 [place] % (Auto) 7.0 Eos % (Auto) 3.9 Baso % (Auto) 0.6 Absolute Neuts (auto) 4.3 Absolute Lymphs (auto) 2.06 Nucleated RBC % 0 Sodium 135 L Potassium 4.6 Chloride 101 Carbon Dioxide 30.0 Anion Gap 4 L BUN 18 Creatinine 1.25 Estim Creat Clear Calc 52.63 Est GFR (MDRD) Af Amer 73 Est GFR (MDRD) Non-Af 60 BUN/Creatinine Ratio 14.4 Glucose 108 H Calcium 9.0 Total Bilirubin 0.70 AST 7 L ALT 12 L Alkaline Phosphatase 46 Troponin I High Sens 6 Total Protein 6.5 Albumin 3.7 Globulin 2.8 Albumin/Globulin Ratio 1.3 Lipase 91 H Urine Color Yellow Urine Clarity Sl. Cloudy Urine pH 7.0 Ur Specific [place] 1.010 Urine Protein 15 H Urine Glucose (UA) Normal Urine Ketones Negative Urine Occult Blood Negative Urine Nitrite Negative Urine Bilirubin Negative Urine Urobilinogen Normal Ur Leukocyte Esterase Negative Urine RBC 0 SEEN Urine WBC 0 SEEN Ur Squamous Epith Cells 0 SEEN Urine Bacteria 0 SEEN Urine Mucus 0 SEEN POC Glucose 113 H 04/24/23 17:23 WBC RBC Hgb Hct MCV MCH MCHC RDW Std Deviation RDW Coeff of Braxton Plt Count MPV Immature Gran % (Auto) Neut % (Auto) Lymph % (Auto) [place] % (Auto) Eos % (Auto) Baso % (Auto) Absolute Neuts (auto) Absolute Lymphs (auto) Nucleated RBC % Sodium Potassium Chloride Carbon Dioxide Anion Gap BUN Creatinine Estim Creat Clear Calc Est GFR (MDRD) Af Amer Est GFR (MDRD) Non-Af BUN/Creatinine Ratio Glucose Calcium Total Bilirubin AST ALT Alkaline Phosphatase Troponin I High Sens 45 Total Protein Albumin Globulin Albumin/Globulin Ratio Lipase Urine Color Urine Clarity Urine pH Ur Specific [place] Urine Protein Urine Glucose (UA) Urine Ketones Urine Occult Blood Urine Nitrite Urine Bilirubin Urine Urobilinogen Ur Leukocyte Esterase Urine RBC Urine WBC Ur Squamous Epith Cells Urine Bacteria Urine Mucus POC Glucose Radiography Diagnostic Testing: Clinical Impression(s) from Imaging Studies Abdomen/Pelvis CT 04/24/23 15:48 IMPRESSION: Increased stool. Stricture versus contraction sigmoid colon without evidence of obstruction. Right inguinal hernia containing a loop of bowel without evidence of obstruction. Electronically Signed: Ryan Marinelli MD at 16:46 EDT Reading Location ID and State: [facility] / [place] Tel , Service support , Discharge Plan Triage Chief Complaint: Abd Pain ED Provider: Maxime Mistry Dx/Rx/DC Orders Instructions: ED Hernia (Adult), ED Abdominal Pain Unkn Cause Male... Prescriptions: No Action metformin [Glucophage] 500 mg tablet 2,000 mg PO DAILY ezetimibe [Zetia] 10 mg tablet 10 mg PO DAILY ramipril 10 mg capsule 10 mg PO DAILY docusate sodium [Colace] 100 mg capsule 100 mg PO BID PRN potassium chloride 20 mEq tablet extended release 20 meq PO DAILY Qty: 90 3RF cholecalciferol (vitamin D3) 125 mcg (5,000 unit) capsule 125 mcg PO DAILY furosemide 40 mg tablet 20 mg PO DAILY Qty: 90 3RF carvedilol 12.5 MG tablet 12.5 mg PO BID 0RF aspirin 81 MG tablet,chewable 81 mg PO DAILY@0800 Qty: 0 0RF Patient Comments: [facility] Rx Instructions: resume tomorrow insulin glargine 100 unit/mL (3 mL) insulin pen 8 unit subcut QHS Patient Comments: DIABETES insulin aspart U-100 100 unit/mL (3 mL) insulin pen 5 unit subcut QAC Patient Comments: DIABETES Primary Care Provider: Kaycee Singer Referrals: Shon Mcadams MD [Med Staff - Active Staff] - 3-5 Days Kaycee Singer MD [Primary Care Provider] - Disposition Disposition: Home, Self Care Discharge Date/Time: 04/24/23 19:48
[2023-04-24 15:28] LABS: Bedside Glucose 113 mg/dL (74-106)
[2023-04-24 15:48] LABS: ALB/GLOB Ratio 1.3 RATIO (0.9-2.4); AST(SGOT) 7 U/L (15-37); Alanine Aminotransfer ALT/SGPT 12 U/L (16-61); Albumin, Serum 3.7 g/dL (3.2-5.0); Alkaline Phosphatase 46 U/L (45-117); Anion Gap 4 (5-15); BUN 18 mg/dL (7-18); BUN/Creat Ratio 14.4 RATIO (10-20); Chloride 101 mmol/L (98-107); Creatinine, Serum 1.25 mg/dL (0.70-1.30); EST Glomerular Filtration Rate 60 mL/min (>60); Est Glom Filt Rate - Afr Amer 73 mL/min (>60); Estimated Creatinine Clearance 52.63 ml/min; Globulin 2.8 g/dL (2.2-4.2); Glucose 108 mg/dL (74-106); Lipase 91 U/L (13-75); Potassium 4.6 mmol/L (3.5-5.1); Protein, Total 6.5 g/dL (6.4-8.2); Sodium Level 135 mmol/L (136-145); Troponin-I HS (w/2H Reflex) 6 pg/mL (3.0-78.0)
--- NOTE | 2023-04-24 15:48 | CT_ITS ---
STUDY: CT ABDOMEN AND PELVIS WITH CONTRAST REASON FOR EXAM: Male, 72 years old. abdominal pain RADIATION DOSAGE (If Supplied By Facility): CTDIvol = ( 15.06 ) mGy, DLP = ( 1089.57 ) mGycm TECHNIQUE: Transaxial images were obtained from the dome of the diaphragm to the symphysis pubis without oral contrast. IV 100mL Isovue-300 was administered. Sagittal and coronal images were reconstructed. Individualized dose optimization techniques were used for this CT. COMPARISON: None. FINDINGS: The visualized lung bases are unremarkable. Calcific coronary artery disease. Normal liver. Normal gallbladder and extrahepatic biliary system. Normal spleen. Normal pancreas. Normal bilateral adrenal glands. Simple right renal cyst measures 5.7 cm. Normal left kidney. Normal visualized stomach. Normal small intestine. Increased stool throughout the colon. Possible stricture versus contraction within the sigmoid colon. The appendix is visualized and appears normal. Calcified plaque along the aorta and its branches. Normal inferior vena cava. Normal retroperitoneum. Normal urinary bladder. Right inguinal hernia containing a loop of bowel without evidence of obstruction. Fat-containing umbilical hernia. Normal osseous structures. Left total hip arthroplasty. Spondylosis. CT/Abdomen/Pelvis W IV Cont ONLY IMPRESSION: Increased stool. Stricture versus contraction sigmoid colon without evidence of obstruction. Right inguinal hernia containing a loop of bowel without evidence of obstruction. Electronically Signed: Ryan Marinelli MD at 16:46 EDT ,
[2023-04-24 15:51] LABS: Bacteria 0 SEEN /hpf (None Seen); Mucous, Urine 0 SEEN /hpf (<or=2+); Red Blood Cells-Urine 0 SEEN /hpf (0-5); Squamous Epithelial Cells - UA 0 SEEN /hpf (0-5); White Blood Cells 0 SEEN /hpf (0-5)
[2023-04-24 15:59] LABS: Color, Urine Yellow (Yellow); Glucose, Dipstick Normal (Normal); Ketone-Dipstick Negative (Negative); Leukocyte Esterase-Dipstick Negative /ul (Negative); Nitrite-Dipstick Negative (Negative); Occult Blood-Urine Negative /ul (Negative); Protein-Dipstick 15 mg/dl (Negative); Urine Bilirubin Dipstick Negative (Negative); Urine Clarity Sl. Cloudy (Clear); Urine Urobilinogen Normal (Normal)
[2023-04-24] MEDS: Morphine 4 MG/ML Syringe IV (16:15)
[2023-04-24] MEDS: Ondansetron 4 MG/2 ML Vial IV (16:15)
[2023-04-24 16:23] VITALS: BP 166/86; PULSE 95; RESP 17; TEMP 36.7; O2SAT 94
[2023-04-24 16:30] VITALS: BP 159/91; PULSE 95; RESP 14; O2SAT 96
[2023-04-24 17:16] LABS: Reflex Troponin-HS? (from REC) Y
[2023-04-24 18:02] LABS: Troponin-I HS 45 pg/mL (3.0-78.0)
[2023-04-24 18:56] VITALS: BP 135/76; PULSE 100; RESP 19; O2SAT 96
[2023-04-24 19:26] VITALS: BP 145/73; PULSE 95; RESP 16; O2SAT 95
== END 2023-04-24 19:48 | disposition home or self-care (01) ==
PROVIDERS: Emergency Provider Student in an Organized Health Care Education/Training Program; PCP Internal Medicine; Visit Provider Student in an Organized Health Care Education/Training Program
DX: R10.30 Lower abdominal pain, unspecified (principal); I50.22 Chronic systolic (congestive) heart failure; K40.90 Unilateral inguinal hernia, without obstruction or gangrene, not specified as recurrent; I25.10 Atherosclerotic heart disease of native coronary artery without angina pectoris; Z86.73 Personal history of transient ischemic attack (TIA), and cerebral infarction without residual deficits; Z95.5 Presence of coronary angioplasty implant and graft
CPT/HCPCS: 74177; 80053; 81001; 82962; 83690; 84484; 85025; 93005; 96374; 96375; 99285; Q9967; A4216; J2405

== ENCOUNTER → 2023-05-07 | Outpatient (CLI) | payer MEDICARE, OTHER, SELFPAY ==
[2023-05-07 11:17] LABS: PSA,Total- Diagnostic 0.46 ng/mL (0.0-4.0)
== END | disposition home or self-care (01) ==
LOC: LAB 09:35
PROVIDERS: PCP Internal Medicine; Referring Provider Urology; Visit Provider Urology
DX: C61 Malignant neoplasm of prostate (principal)
CPT/HCPCS: 36415; 84153

== ENCOUNTER 2023-06-11 05:47 | Day surgery (SDC) | payer MEDICARE, OTHER, SELFPAY ==
[2023-06-11] VITALS (10 sets, daily range): BP systolic 108–140; BP diastolic 60–78; PULSE 65–96; RESP 12–18; TEMP 36.3–36.6; O2SAT 95–99; BMI 29.2
[2023-06-11] MEDS: Lactated Ringers 1,000 ML 15 ML IV ×2 (06:49→09:10)
--- NOTE | 2023-06-11 07:07 | PCM.HP.BLA ---
History and Physical Date of Admission: 06/11/23 Intake Vital Signs 04/24/2314:59 05/22/2313:20 Height 5 ft 9 in BP 136/68 H Blood Pressure Location Rt brachial Position Sitting Respiration 17 Pulse 64 Pulse Source Monitor Temp 974 F H Temp Source Temporal Pulse Oximetry (%) 98 Oxygen Delivery Method room air Intake Visit Reasons: ED- INGUINAL HERNIA Chief Complaint: inguinal hernia Is patient in pain?: Yes Allergies atorvastatin [From Lipitor] Allergy (Severe, Verified 05/22/23 13:26) Otherpravastatin [From Pravachol] Allergy (Severe, Verified 05/22/23 13:26) Otherrosuvastatin [From Crestor] Allergy (Severe, Verified 05/22/23 13:26) XaqszEqzuopv-KTE-OyT Reductase Inhibitor [Evhmeif-Kno-Xis Reductase Inhibitor] Allergy (Severe, Verified 05/22/23 13:26) Otherciprofloxacin Adverse Reaction (Severe, Verified 05/22/23 13:26) dizziness, vomiting Medications aspirin 81 mg chewable tablet 81 mg PO DAILY@0800 ##0 11/03/16 [Rx Confirmed 05/22/23] carvedilol 12.5 mg tablet 12.5 mg PO BID 11/03/16 [Rx Confirmed 05/22/23] ezetimibe 10 mg tablet (Zetia) 10 mg PO DAILY cholesterol 06/14/19 [History Confirmed 05/22/23] metformin 500 mg tablet (Glucophage) 2,000 mg PO DAILY 06/14/19 [History Confirmed 05/22/23] ramipril 10 mg capsule 10 mg PO DAILY 06/14/21 [History Confirmed 05/22/23] docusate sodium 100 mg capsule (Colace) 100 mg PO BID PRN 01/24/22 [History Confirmed 05/22/23] insulin glargine 100 unit/mL (3 mL) subcutaneous pen 8 unit subcut QHS 01/24/22 [History Confirmed 05/22/23] potassium chloride 20 mEq tablet,extended release 20 meq PO DAILY #90 tabs 01/24/22 [Rx Confirmed 05/22/23] cholecalciferol (vitamin D3) 125 mcg (5,000 unit) capsule 125 mcg PO DAILY 12/26/22 [History Confirmed 05/22/23] furosemide 40 mg tablet 20 mg (1/2 x 40 mg) PO DAILY #90 tabs 12/26/22 [Rx Confirmed 05/22/23] insulin aspart U-100 100 unit/mL (3 mL) subcutaneous pen 5 unit subcut QAC 12/26/22 [History Confirmed 05/22/23] [facility] Medical History Altered mental status Atherosclerotic heart disease of [place] coronary artery without angina pectoris Blood in the urine Chronic systolic CHF (congestive heart failure) CLL (chronic lymphocytic leukemia) CVA (cerebral vascular accident) Diverticulosis DM2 (diabetes mellitus, type 2) Essential hypertension History of pleural effusion Left pontine stroke Mixed hyperlipidemia Morbid obesity Presence of stent in coronary artery (~05/04/20) Stenosis of right carotid artery Syncope Surgical History History of bilateral cataract extraction History of left hip replacement (~10/2021) Presence of coronary angioplasty implant and graft (~02/20/13) Family History Mother CAD (coronary artery disease) CVA (cerebral vascular accident) Social History Smoking Status: Never smoker alcohol intake: never substance use type: does not use caffeine: No HPI HPI HPI: Patient is a 72-year-old male with a right inguinal hernia that was recently seen in the emergency room. He says the hernia has been there for a few months. He has no pain on the opposite side. He says he feels pain radiating up into his abdomen. He denies nausea or vomiting or fevers or chills. ROS General General: No weight change, appetite, fatigue, colon cancer, breast cancer or weakness HEENT HEENT: No difficulty swallowing, eye injury, eye surgery, swollen glands or hoarseness Endo Endocrine: Yes diabetes mellitus; No thyroid disease, thyroid cancer, Hair loss, heat intolerance or cold intolerance Skin Skin: No rash or changing moles Musc Musculoskeletal: Yes arthritis; No back problems, rheumatoid arthritis, gout or joint pain Cardio Cardiovascular: Yes heart disease, high blood pressure, heart attack and heart stent; No murmur, pacemaker, atrial fibrillation, palpitations, shortness of breat with exertion or chest pain Psych Psychiatric: No depression, anxiety or hearing voices Resp Respiratory: No shortness of breath, No sleep apnea, No cough, No COPD, No asthma, No emphysema and No wheezing Gastro Gastrointestinal: Yes abdominal pain, No nausea or vomiting, No diarrhea, Yes constipation, No blood in stool, No acid reflux, No hemorrhoids, No ulcers, No gallbladder problem and No black,tarry stools Juan Manuel Hematologic: No blood thinners, No blood disorders, No bleeding, No anemia and No blood clots Neuro Neurologic: No system reviewed and no additional complaints, except as documented, No as per HPI, No abnormal gait, No abnormal hearing, No abnormal movements, No abnormal speech, No behavioral changes, No burning sensations, No confusion, No convulsions, No disequilibrium, No dizziness, No localized weakness, No frequent falls, No headache(s), No lack of coordination, No loss of vision, No memory loss, No numbness, No other visual disturbances, No radicular pain, No restless legs, No sensory deficit, No syncope, No tingling, No tremor(s), No weakness and No other Exam Const General: cooperative Orientation: alert and oriented x3 HENNH Head: normal to inspection Neck Neck: normal visual inspection and full ROM Chest Chest palpation & inspection: normal inspection of the chest Resp Effort & Inspection: normal respiratory effort Auscultation: clear to auscultation bilaterally Cardio Rate: regular rate Rhythm: regular rhythm GI Inspection: non-distended Palpation: soft, hernia indirect inguinal on the right and nontender Skin General: no rashes or lesions noted Neuro General: patient alert and patient oriented x3 Extrem General: full ROM Psych Appearance: grossly normal Mental Status: mental status grossly normal Assessment and Plan Assessment and Plan (1) Right inguinal hernia: Status: Acute Plan: Patient has a right inguinal hernia which is reducible. I do not feel hernia on the opposite side. I discussed robotic assisted laparoscopic inguinal hernia repair with mesh with the patient. I discussed the risks including not limited to bleeding, infection, injury other organs such as the bowel, bladder, ureter. Patient understands the risks and is willing to proceed. I discussed postoperative care and I will have him stop his aspirin for 5 days before this procedure. Shon Mcadams MD Pager: [facility] [address] [place] [address], [address] [place] [address] Office: I have examined the patient and the H&P has been reviewed. There are no clinical changes since date of exam.
[2023-06-11 07:18] LABS: Bedside Glucose 146 mg/dL (74-106)
[2023-06-11] MEDS: Cefazolin 2 GM in 0.9% Normal Saline (100mL Bag) 100 ML IV (07:25)
[2023-06-11] MEDS: Bupivacaine Mpf 0.5% 30 ML VIAL (08:35)
[2023-06-11 09:10] LABS: Hemoglobin A1c 6.1 % (3.8-5.6)
[2023-06-11] MEDS: Ketorolac 30 MG/ML Syringe 15 MG IV (09:14)
--- NOTE | 2023-06-11 09:14 | PCM.OPRPT ---
Report of Operation Date of Procedure: 06/11/23 Pre-Operative Diagnosis: Right inguinal hernia Post-Operative Diagnosis: Right inguinal hernia Surgery/Procedure Performed:: Robotic assisted laparoscopic right inguinal hernia repair with mesh Type of Anesthesia: General/Regional Estimated Blood Loss (mL): 5 Description of Procedure: Patient was brought back to the operating room and general anesthesia was induced. The abdomen was prepped and draped in usual sterile fashion. A midline incision was made superior to the umbilicus and the L umbilicus was grasped and elevated with a Nadia clamp. The Veress needle was placed into the abdomen and a drop test was performed. The abdomen was then insufflated to 15 mmHg. The needle was removed and a port was placed. Camera was placed into the abdomen and there were no injuries from entry. The patient was placed in Trendelenburg position and the right inguinal hernia was identified. Under direct visualization an 8 mm port was placed in the right lateral abdomen and an 8 mm port was placed in the left lateral abdomen. The robot was then docked. Using electrocautery scissors an incision was made in the peritoneum in the right lower quadrant. Dissection was carried inferiorly until the hernia sac was identified. The hernia was circumferentially dissected. The hernia sac was very long and tightly adherent to the scrotum. The hernia was divided midway down the inguinal canal and then dissection was carried posteriorly. Once all of the tissue had been dissected free a large piece of ProGrip mesh was placed in the right inguinal region and unfolded completely covering the hernia. The peritoneum was then reapproximated using a running 3 OV lock suture. There was a small opening where the hernia sac was and this was closed with 3-0 Vicryl suture. Peritoneum completely cover the mesh at the end of the case. Next the air was allowed to desufflate and the ports were removed and the robot was undocked. The skin incisions were injected with local anesthetic and closed with interrupted 4-0 Monocryl suture. Steri-Strips and bandages were applied. The scrotum was checked at the end of the case and contain both testicles. The patient was awoken and brought to PACU in stable condition. Grafts/Implants Used: ProGrip mesh in the right inguinal region Admit VTE Documentation VTE Mechan Device Prophylaxis: SCD's
--- NOTE | 2023-06-11 09:17 | DCINST_ITS ---
Discharge Instructions Diet Discharge Diet: Light diet - advance as tolerated Activity Discharge Activity: May Not Drive (for 2-3 days or while taking narcotic pain meds.) and May Shower (with the bandage in place 1-2 days after surgery.) Lifting Restrictions: 20 pounds for 2 weeks Additional Activity Instructions:: Climbing stairs is fine, walking is encouraged. Sitting in bed may be uncomfortable. Sitting up using your lateral muscles (sitting up sideways) is usually more comfortable. Do not drive, work heavy equipment or sign legal documents for 24 hours. If your hernia repair was an inguinal repair, you may have scrotal swelling, an ice pack and/or athletic support can provide more comfort. Pain medications may cause nausea, you should typically eat light foods as you take your pain medications. Pain medications may also cause constipation. If you have difficulty with this, discuss with your doctor. Dressing / Incision Call your doctor if your incision/area has: Continuous Slow Oozing, Sudden Increased Bleeding, Increased Pain/ Swelling, Increased Redness and Foul Smelling Discharge Call your doctor if you observe: Fever of 101 or Higher Suture Line Care: Avoid Pulling/Pushing and Avoid Pinching/Bending Remove Dressing in: 2 days (Remove clear bandages in 2 days, remove Steri-Strips in 7 to 10 days.) Follow Up Care Please Follow Up With: Shon Mcadams MD When: Please call to schedule 2 week follow up appointment. [phone] Test Results: Test results from this visit will be discussed in further detail at your follow- up appointment, if applicable. Discharge Plan Admission Attending Provider: Shon Mcadams Primary Care Provider: Kaycee Singer Discharge Orders/Prescriptions Prescriptions: New acetaminophen 325 mg Tablet 650 mg PO Q4H PRN PRN (Reason: Pain Or Fever) Qty: 0 0RF oxycodone 5 mg Tablet 5 - 10 mg PO Q4H PRN PRN (Reason: Pain Score 4-10/10) 5 Days Qty: 15 0RF No Action metformin [Glucophage] 500 mg tablet 2,000 mg PO DAILY ezetimibe [Zetia] 10 mg tablet 10 mg PO DAILY ramipril 10 mg capsule 10 mg PO DAILY docusate sodium [Colace] 100 mg capsule 100 mg PO TID cholecalciferol (vitamin D3) 125 mcg (5,000 unit) capsule 125 mcg PO .QOD carvedilol 12.5 MG tablet 12.5 mg PO BID 0RF aspirin 81 MG tablet,chewable 81 mg PO DAILY@0800 Qty: 0 0RF Patient Comments: [facility] Rx Instructions: resume tomorrow insulin glargine 100 unit/mL (3 mL) insulin pen 8 unit subcut QHS PRN (Reason: SLIDING SCALE) Patient Comments: DIABETES insulin aspart U-100 100 unit/mL (3 mL) insulin pen 1 unit subcut QAC PRN (Reason: SLIDING SCALE) Patient Comments: DIABETES Referrals / Follow Up: Kaycee Singer MD [Primary Care Provider] - Disposition Disposition (needs filled in before D/C Order can be placed): Home, Self Care
[2023-06-11 09:33] LABS: Bedside Glucose 180 mg/dL (74-106)
[2023-06-11] MEDS: Acetaminophen 325 MG Tablet 650 MG PO (10:55)
[2023-06-11] MEDS: oxyCODONE 5 MG Tablet PO (13:05)
--- NOTE | 2023-06-11 15:07 | SUR.PHASEII ---
PT VOIDED 100 ML, BLADDER SCANNED FOR 350. PER DR STEPHANIE MINOR AND SEND HOME. INSTRUCT THE PT IF HE DOES NOT VOID IN 8 HRS GO TO ER. PT STRAIGHT MILY FOR 400 ML, PT READY FOR D/C
== END 2023-06-11 15:10 | disposition home or self-care (01) ==
LOC: SDC 05:48 → AC 05:51
PROVIDERS: Anesthesiology; PCP Internal Medicine; Referring Provider Surgery; Visit Provider Surgery
PROC: (CPT 49650; principal; 2023-06-11 07:10)
DX: K40.90 Unilateral inguinal hernia, without obstruction or gangrene, not specified as recurrent (principal); I11.0 Hypertensive heart disease with heart failure; I50.22 Chronic systolic (congestive) heart failure; E66.01 Morbid (severe) obesity due to excess calories; E11.9 Type 2 diabetes mellitus without complications; Z79.4 Long term (current) use of insulin; I25.10 Atherosclerotic heart disease of native coronary artery without angina pectoris; E78.2 Mixed hyperlipidemia; Z79.84 Long term (current) use of oral hypoglycemic drugs; Z79.82 Long term (current) use of aspirin; Z79.899 Other long term (current) drug therapy
CPT/HCPCS: 49650; S2900; 00840; 82962; 83036; J7120; J2405

== ENCOUNTER 2023-10-06 18:31 | Emergency (ER) | payer MEDICARE, OTHER, SELFPAY ==
[2023-10-06 18:34] VITALS: BP 200/100; PULSE 99; RESP 22; TEMP 36.3; O2SAT 98; BMI 31.3
--- NOTE | 2023-10-06 19:03 | EKG12_ITS ---
Test Reason : DYSRHYTHMIA Blood Pressure : / mmHG Vent. Rate : 089 BPM Atrial Rate : 089 BPM P-R Int : 198 ms QRS Dur : 134 ms QT Int : 372 ms P-R-T Axes : 028 -73 009 degrees QTc Int : 452 ms Normal sinus rhythm Left axis deviation Right bundle branch block Inferior infarct , age undetermined Abnormal ECG Confirmed by ERIKA GAMINO MD ([id number]), photography editor LEIGH ANN MARTINEZ ([id number]) on 10/07/2023 9:09:24 AM Referred By: ERIN Confirmed By:ERIKA GAMINO MD
--- NOTE | 2023-10-06 19:09 | EDS_ITS ---
HPI History of Present Illness Chief Complaint: Palpitations Detail of Chief Complaint: Upper abdominal pain, vomiting Informant: patient Narrative Narrative: Patient presents secondary to upper abdominal pain and vomiting that started this morning. He had 3 separate episodes of vomiting today. He states his pain kept getting more and more uncomfortable. EMS was called. And route to the hospital he states his pain resolved. He states EMS told him that he was in A- fib and then converted to sinus rhythm. The prehospital EKG that is sent is being read as A-fib by the machine, however I believe he is sinus rhythm with PACs. Patient has no known history of A-fib. [facility] Medical History Altered mental status Ambulates with cane Arthritis Atherosclerotic heart disease of [place] coronary artery without angina pectoris Back pain Blood in the urine Cardiology follow-up encounter Chronic systolic CHF (congestive heart failure) CLL (chronic lymphocytic leukemia) CVA (cerebral vascular accident) Dietary restriction DM2 (diabetes mellitus, type 2) Essential hypertension Heartburn History of echocardiogram History of heart attack History of pain when walking History of pleural effusion History of stress test Insulin dependent diabetes mellitus Left pontine stroke Leg cramps Mixed hyperlipidemia Morbid obesity Non-smoker Presence of stent in coronary artery (~05/04/20) Prostate disease Stenosis of right carotid artery Syncope Wears glasses Home Medications aspirin 81 mg chewable tablet 81 mg PO DAILY@0800 ##0 11/03/16 [Rx Last Taken 06/05/23] carvedilol 12.5 mg tablet 12.5 mg PO BID 11/03/16 [Rx Last Taken 06/11/23] ezetimibe 10 mg tablet (Zetia) 10 mg PO DAILY cholesterol 06/14/19 [History Last Taken 06/11/23] metformin 500 mg tablet (Glucophage) 2,000 mg PO DAILY 06/14/19 [History Last Taken 05/03/20] ramipril 10 mg capsule 10 mg PO DAILY 06/14/21 [History Last Taken 06/11/23] docusate sodium 100 mg capsule (Colace) 100 mg PO TID constipation 01/24/22 [History Last Taken Unknown] insulin glargine 100 unit/mL (3 mL) subcutaneous pen 8 unit subcut QHS PRN SLIDING SCALE 06/10/22 [History Last Taken Unknown] cholecalciferol (vitamin D3) 125 mcg (5,000 unit) capsule 125 mcg PO .QOD 12/26/22 [History Last Taken Unknown] insulin aspart U-100 100 unit/mL (3 mL) subcutaneous pen 1 unit subcut QAC PRN SLIDING SCALE 12/26/22 [History Last Taken Unknown] acetaminophen 325 mg tablet 650 mg (2 x 325 mg) PO Q4H PRN PRN Pain Or Fever #0 tabs 06/11/23 [Rx Last Taken Unknown] Allergy/AdvReac Type Severity Reaction Status Date / Time atorvastatin [From Lipitor] Allergy Severe Other Verified 07/03/23 15:02 pravastatin [From Pravachol] Allergy Severe Other Verified 07/03/23 15:02 rosuvastatin [From Crestor] Allergy Severe Other Verified 07/03/23 15:02 Icgviie-DCI-AcJ Reductase Allergy Severe Other Verified 07/03/23 15:02 Inhibitor [Ufkcgxt-Gij-Ngg Reductase Inhibitor] ciprofloxacin AdvReac Severe dizziness, Verified 07/03/23 15:02 vomiting Family History Mother CAD (coronary artery disease) CVA (cerebral vascular accident) Surgical History History of bilateral cataract extraction History of cardiac catheterization History of cystoscopy History of left hip replacement (~10/2021) Hx of colonoscopy Presence of coronary angioplasty implant and graft (~02/20/13) S/P inguinal hernia repair Social History household members: spouse Smoking Status: Never smoker alcohol intake: never substance use type: does not use caffeine: No ROS ROS ED Constitutional Constitutional ED: Denies chills or fever(s) Eyes Eyes: Denies discharge from eye(s) ENT ENT ED: Denies discharge from eye(s), rhinorrhea or sore throat Cardiovascular Cardiovascular: Denies chest pain or palpitations Respiratory/Chest Respiratory/Chest: Denies cough or dyspnea Gastrointestinal Gastrointestinal: Reports abdominal pain, nausea and vomiting; Denies diarrhea Genitourinary Genitourinary ED: Denies dysuria Musculoskeletal Musculoskeletal: Denies back pain or extremity pain Integumentary Denies Abrasions or rash Neurologic Neurologic: Denies headache(s) or weakness Psychiatric Psychiatric: Denies anxiety or depression Allergic/Immunologic Allergic/Immunologic ED: Denies lip swelling or urticaria EXAM Physical Exam Const Vital Signs: 10/06/23 18:34 10/06/23 18:38 10/06/23 21:33 Temperature 97.3 F L Temperature Source Temporal Pulse Rate 99 82 Respiratory Rate 22 H 19 H Respiratory Effort Non-Labored Blood Pressure 200/100 H 144/78 H Blood Pressure Mean 133 100 Pulse Ox 98 92 Oxygen Delivery Method Room Air Room Air Positive well nourished and well developed General Appearance ED: well developed HEENT Reports moist mucous membranes Eyes EOMs intact bilaterally Chest Wall inspection of chest normal and palpation of chest normal Resp normal respiratory effort and clear to auscultation bilaterally Cardio regular rate and regular rhythm GI non-tender Auscultation: hypoactive bowel sounds Palpation: soft Neuro oriented x3 and no sensory deficits noted Motor Exam: strength 5/5 throughout Psych mental status grossly normal Skin no rashes or lesions noted MDM MDM MDM Narrative Medical decision making narrative: Patient placed on dispatcher maintenance. IV line initiated. EKG obtained to evaluate for cardiac arrhythmia/ischemia. Chest x-ray obtained to evaluate for acute lung pathology, cardiac size, or mediastinal abnormality. Labwork obtained to evaluate for leukocytosis, anemia, and electrolyte derangement. Patient given 5 mg of IV labetalol for blood pressure of 200/100 with a pulse rate of 99. History & Record Review Discussion w/independent historian: EMS personnel and Patient Additional record(s) reviewed:: Prior outpatient record, Prior ED visit and Prior labs Lab Data Attestation: I reviewed the patient's lab results. Labs: Laboratory Results - last 24 hr 10/06/23 10/06/23 18:20 21:20 WBC 10.3 RBC 5.50 Hgb 17.0 H Hct 50.7 MCV 92.2 MCH 30.9 MCHC 33.5 RDW Std Deviation 43.2 RDW Coeff of Braxton 12.8 Plt Count 209 MPV 9.8 Immature Gran % (Auto) 0.700 Neut % (Auto) 60.5 Lymph % (Auto) 29.4 Duval % (Auto) 5.4 Eos % (Auto) 3.2 Baso % (Auto) 0.8 Absolute Neuts (auto) 6.2 Absolute Lymphs (auto) 3.01 Nucleated RBC % 0 Sodium 138 Potassium 4.2 Chloride 105 Carbon Dioxide 27.0 Anion Gap 6 BUN 18 Creatinine 1.05 Estim Creat Clear Calc 71.70 Est GFR (MDRD) Af Amer 89 Est GFR (MDRD) Non-Af 73 BUN/Creatinine Ratio 17.1 Glucose 110 H Calcium 9.5 Total Bilirubin 0.80 Direct Bilirubin 0.21 AST 11 L ALT 14 L Alkaline Phosphatase 42 L Troponin I High Sens 8 8 Total Protein 7.0 Albumin 4.3 Globulin 2.7 Lipase 129 H TSH 1.98 Radiography Chest X-Ray - ED: 1 View, Read by ED Physician, Chronic Changes and No Infiltrates Diagnostic Testing: Clinical Impression(s) from Imaging Studies Chest X-Ray 10/06/23 19:45 IMPRESSION: No radiographic evidence of acute cardiopulmonary disease. Electronically Signed: Rene Whittington MD at 21:34 EST Reading Location ID and State: [facility] / [place] Tel , Service support , EKG Initial EKG: Attestation: I personally reviewed and interpreted this EKG as follows: Interpretation: Sinus Rhythm (Sinus 89 with a right bundle branch block. No acute ischemia.) Treatment and Re-Evaluation :: CBC was a white count 10.3 with normal differential. Hemoglobin is concentrated at 17. Chemistry studies are unremarkable. LFTs and lipase are normal. TSH is normal at 1.98. Troponin is normal at 8 on 2 separate readings. Portable chest x-ray per my interpretation is chronic changes with no focal infiltrate. Radiology interpretation reviewed and agrees. EKG is sinus with no evidence of ischemia. I did go back and look at the patient's dispatcher maintenance for the duration of his stay. He did have a couple times where he would go into a trigeminy pattern with 2 sinus beats followed by a PVC. At this time he is in regular sinus rhythm. Blood pressure is improved to 144/78. Patient is continued had no further symptoms since arrival. Test results are discussed with he and at bedside. He will be discharged home to continue to monitor his symptoms. Return instructions were provided. Discharge Plan Triage Chief Complaint: Palpitations Other Complaint: Abd Pain ED Provider: Aileen Roper Dx/Rx/DC Orders Clinical Impression: Epigastric pain Instructions: ED Abdominal Pain Unkn Cause Male... Prescriptions: No Action metformin [Glucophage] 500 mg tablet 2,000 mg PO DAILY ezetimibe [Zetia] 10 mg tablet 10 mg PO DAILY ramipril 10 mg capsule 10 mg PO DAILY docusate sodium [Colace] 100 mg capsule 100 mg PO TID cholecalciferol (vitamin D3) 125 mcg (5,000 unit) capsule 125 mcg PO .QOD carvedilol 12.5 MG tablet 12.5 mg PO BID 0RF aspirin 81 MG tablet,chewable 81 mg PO DAILY@0800 Qty: 0 0RF Patient Comments: [facility] Rx Instructions: resume tomorrow insulin glargine 100 unit/mL (3 mL) insulin pen 8 unit subcut QHS PRN (Reason: SLIDING SCALE) Patient Comments: DIABETES insulin aspart U-100 100 unit/mL (3 mL) insulin pen 1 unit subcut QAC PRN (Reason: SLIDING SCALE) Patient Comments: DIABETES acetaminophen 325 mg Tablet 650 mg PO Q4H PRN PRN (Reason: Pain Or Fever) Qty: 0 0RF Primary Care Provider: Kaycee Singer Referrals: Kaycee Singer MD [Primary Care Provider] - 1-2 Weeks Disposition Disposition: Home, Self Care
[2023-10-06] MEDS: Metoprolol Tartrate 5 MG/5 ML Vial IV (19:23)
[2023-10-06] MEDS: 0.9% Normal Saline (1000mL) 1,000 ML 150 ML IV (19:23)
[2023-10-06 19:44] LABS: Absolute Lymphocyte Count 3.01 X10^3/uL (0.83-4.51); Absolute Neutrophil Count 6.2 X10^3/uL (2.0-7.7); Basophil# 0.08 X10^3/uL; Basophil% 0.8 % (0-1); Eosinophil# 0.33 X10^3/uL; Eosinophils% 3.2 % (0-5); Hematocrit 50.7 % (40-54); Lymphocyte # 3.01 X10^3/ul (0.83-4.51); Lymphocyte % 29.4 % (19-41); Mean Corp Hgb Conc 33.5 g/dL (32-36); Mean Corpuscular Hgb 30.9 pg (27.0-32.0); Mean Corpuscular Volume 92.2 fL (80-94); Mean Platelet Vol. 9.8 fl (6.2-12.0); Monocyte# 0.55 X10^3/uL; Monocyte% 5.4 % (0-10); NRBC Flagged by Analyzer 0 % (0-5); Neutrophil # 6.21 X10^3/uL (2.7-7.7); Neutrophil % 60.5 % (47-70); Platelet Count 209 K/mm3 (150-450); RBC Distribution Width CV 12.8 % (11.6-14.6); RBC Distribution Width SD 43.2 fl (35.1-43.9); White Blood Count 10.3 K/mm3 (4.4-11.0)
--- NOTE | 2023-10-06 19:45 | RAD_ITS ---
INDICATION: pain EXAMINATION/TECHNIQUE: X-RAY - XR Chest 1 View COMPARISON: CR ChestFeb 4 2020 FINDINGS: LINES/DEVICES: None. LUNGS: No consolidation, edema or effusion. No pneumothorax. MEDIASTINUM AND CARDIOVASCULAR STRUCTURES: Cardiac silhouette not enlarged. Central airways and mediastinal contour are unremarkable. BONES AND SOFT TISSUES: Unremarkable. RAD/Chest 1 View (Portable) IMPRESSION: No radiographic evidence of acute cardiopulmonary disease. Electronically Signed: Rene Whittington MD at 21:34 EST ,
[2023-10-06 20:04] LABS: AST(SGOT) 11 U/L (15-37); Alanine Aminotransfer ALT/SGPT 14 U/L (16-61); Albumin, Serum 4.3 g/dL (3.2-5.0); Alkaline Phosphatase 42 U/L (45-117); Anion Gap 6 (5-15); BUN 18 mg/dL (7-18); BUN/Creat Ratio 17.1 RATIO (10-20); Bilirubin, Direct 0.21 mg/dL (0.00-0.30); Calcium,Total 9.5 mg/dL (8.5-10.1); Chloride 105 mmol/L (98-107); Creatinine, Serum 1.05 mg/dL (0.70-1.30); EST Glomerular Filtration Rate 73 mL/min (>60); Est Glom Filt Rate - Afr Amer 89 mL/min (>60); Globulin 2.7 g/dL (2.2-4.2); Glucose 110 mg/dL (74-106); Lipase 129 U/L (13-75); Potassium 4.2 mmol/L (3.5-5.1); Sodium Level 138 mmol/L (136-145); Thyroid Stim Hormone (TSH) 1.98 uIU/mL (0.358-3.74); Troponin-I HS (w/2H Reflex) 8 pg/mL (3.0-78.0)
[2023-10-06 21:13] LABS: Reflex Troponin-HS? (from REC) Y
[2023-10-06 21:33] VITALS: BP 144/78; PULSE 82; RESP 19; O2SAT 92
[2023-10-06 21:54] LABS: Troponin-I HS 8 pg/mL (3.0-78.0)
[2023-10-06 22:09] VITALS: BP 145/76; PULSE 84; RESP 16; TEMP 36.6; O2SAT 94
== END 2023-10-06 22:12 | disposition home or self-care (01) ==
PROVIDERS: Emergency Provider Emergency Medicine; PCP Internal Medicine; Visit Provider Emergency Medicine
DX: R10.13 Epigastric pain (principal); I50.22 Chronic systolic (congestive) heart failure; I11.0 Hypertensive heart disease with heart failure; I48.91 Unspecified atrial fibrillation; E11.9 Type 2 diabetes mellitus without complications; R00.2 Palpitations; R11.10 Vomiting, unspecified; I25.10 Atherosclerotic heart disease of native coronary artery without angina pectoris; E78.2 Mixed hyperlipidemia
CPT/HCPCS: 71045; 80048; 80076; 83690; 84443; 84484; 85025; 93005; 96361; 96374; 99285; J7030

== ENCOUNTER 2023-11-14 10:16 | Emergency (ER) | payer MEDICARE, OTHER, SELFPAY ==
[2023-11-14 10:17] VITALS: BP 165/82; PULSE 100; RESP 16; TEMP 36.3; O2SAT 99
--- NOTE | 2023-11-14 11:00 | ED.VIS.LOWEX ---
HPI History of Present Illness HPI Narrative: Patient presents with right lower leg pain that began today. Patient states he woke up with the pain this morning. Patient states it is from his knee to his ankle. Patient describes it as burning. Patient states it is worse with weightbearing and with palpation. Patient states it is better with rest. Patient denies any trauma or injury. Patient denies any fevers or chills. Patient states it has been constant for the past several hours. Patient denies any paresthesias or weakness. Chief Complaint: Other, Pain/Inj Onset/Context/Timing Onset: Today Context: Sudden Onset Timing: Continuous Quality of Pain: Burning Location: Right lower leg Worsened by: Weightbearing, palpation Relieved by: Rest Associated Symptoms Associated Symptoms: Negative for Parasthesia, Weakness or Loss of Funtion PFSH [facility] Medical History Altered mental status Ambulates with cane Arthritis Atherosclerotic heart disease of [place] coronary artery without angina pectoris Back pain Blood in the urine Cardiology follow-up encounter Chronic systolic CHF (congestive heart failure) CLL (chronic lymphocytic leukemia) CVA (cerebral vascular accident) Dietary restriction DM2 (diabetes mellitus, type 2) Essential hypertension Heartburn History of echocardiogram History of heart attack History of pain when walking History of pleural effusion History of stress test Insulin dependent diabetes mellitus Left pontine stroke Leg cramps Mixed hyperlipidemia Morbid obesity Non-smoker Presence of stent in coronary artery (~05/04/20) Prostate disease Stenosis of right carotid artery Syncope Wears glasses Home Medications aspirin 81 mg chewable tablet 81 mg PO DAILY@0800 ##0 11/03/16 [Rx Last Taken 06/05/23] carvedilol 12.5 mg tablet 12.5 mg PO BID 11/03/16 [Rx Last Taken 06/11/23] ezetimibe 10 mg tablet (Zetia) 10 mg PO DAILY cholesterol 06/14/19 [History Last Taken 06/11/23] metformin 500 mg tablet (Glucophage) 2,000 mg PO DAILY 06/14/19 [History Last Taken 05/03/20] ramipril 10 mg capsule 10 mg PO DAILY 06/14/21 [History Last Taken 06/11/23] docusate sodium 100 mg capsule (Colace) 100 mg PO TID constipation 01/24/22 [History Last Taken Unknown] insulin glargine 100 unit/mL (3 mL) subcutaneous pen 8 unit subcut QHS PRN SLIDING SCALE 01/24/22 [History Last Taken Unknown] cholecalciferol (vitamin D3) 125 mcg (5,000 unit) capsule 125 mcg PO .QOD 12/26/22 [History Last Taken Unknown] insulin aspart U-100 100 unit/mL (3 mL) subcutaneous pen 1 unit subcut QAC PRN SLIDING SCALE 12/26/22 [History Last Taken Unknown] acetaminophen 325 mg tablet 650 mg (2 x 325 mg) PO Q4H PRN PRN Pain Or Fever #0 tabs 06/11/23 [Rx Last Taken Unknown] cephalexin 500 mg capsule 500 mg PO Q6 #40 CAPSULES 11/14/23 [Rx Last Taken Unknown] Allergy/AdvReac Type Severity Reaction Status Date / Time atorvastatin [From Lipitor] Allergy Severe Other Verified 11/14/23 10:18 pravastatin [From Pravachol] Allergy Severe Other Verified 11/14/23 10:18 rosuvastatin [From Crestor] Allergy Severe Other Verified 11/14/23 10:18 Mmppfrq-TZS-VsF Reductase Allergy Severe Other Verified 11/14/23 10:18 Inhibitor [Uutwbog-Vgu-Fff Reductase Inhibitor] ciprofloxacin AdvReac Severe dizziness, Verified 11/14/23 10:18 vomiting Family History Mother CAD (coronary artery disease) CVA (cerebral vascular accident) Surgical History History of bilateral cataract extraction History of cardiac catheterization History of cystoscopy History of left hip replacement (~10/2021) Hx of colonoscopy Presence of coronary angioplasty implant and graft (~02/20/13) S/P inguinal hernia repair Social History household members: spouse Smoking Status: Never smoker alcohol intake: never substance use type: does not use caffeine: No ROS ROS ED Constitutional Constitutional ED: Denies chills or fever(s) Eyes Eyes: Denies blurry vision or change in vision ENT ENT ED: Denies rhinorrhea or sore throat Cardiovascular Cardiovascular: Denies chest pain or palpitations Respiratory/Chest Respiratory/Chest: Denies cough or dyspnea Gastrointestinal Gastrointestinal: Denies nausea or vomiting Genitourinary Genitourinary ED: Denies dysuria or hematuria Musculoskeletal Musculoskeletal: Denies back pain or neck pain Integumentary Denies abscess or rash Neurologic Neurologic: Denies headache(s) or weakness Allergic/Immunologic Allergic/Immunologic ED: Denies mouth swelling or urticaria EXAM Physical Exam Const Vital Signs: 11/14/23 10:17 Temperature 97.4 F L Temperature Source Temporal Pulse Rate 100 Respiratory Rate 16 Blood Pressure 165/82 H Blood Pressure Mean 109 Pulse Ox 99 Oxygen Delivery Method Room Air Positive well nourished and well developed General Appearance ED: well developed and NAD HEENT Reports moist mucous membranes Neck full ROM and supple Extremity Extremity Narrative: There is some erythema and warmth over the anterior and posterior aspect of the right lower leg. There is no discharge or drainage noted. There is tenderness to palpation over the right lower leg. Range of motion of the right lower leg was limited in all motions secondary to pain. Pedal pulses are equal bilaterally. Sensation was intact to light touch in all digits. Capillary refill was less than 2 seconds in all digits. Neuro oriented x3, CN's II-XII intact bilaterally, moves all extremities and no sensory deficits noted Sensorium / Orientation: alert Motor Exam: strength 5/5 throughout Psych mental status grossly normal Skin Skin Narrative: There is a superficial abrasion over the posterior aspect of the right distal calf. There is no active bleeding noted. MDM MDM MDM Narrative Medical decision making narrative: Differential diagnosis include DVT, cellulitis, and muscle strain. Venous duplex of the right lower extremity will be obtained to assess for DVT. CBC will be obtained to assess for leukocytosis and anemia. Basic metabolic profile will be obtained to assess for electrolyte abnormality and renal function. PT was INR and PTT will be obtained to assess for coagulopathy. Lab Data Attestation: I reviewed the patient's lab results. Lab results narrative: CBC was reviewed. There is a slight leukocytosis of 11.8. The remainder is within normal limits. Basic metabolic profile was reviewed. BUN was slightly elevated at 24. Glucose was slightly elevated at 185. The remainder is within normal limits. PT with INR and PTT were reviewed and were within normal limits. Labs: Laboratory Results - last 24 hr 11/14/23 11:35 WBC 11.8 H RBC 5.33 Hgb 16.7 H Hct 48.2 MCV 90.4 MCH 31.3 MCHC 34.6 RDW Std Deviation 41.2 RDW Coeff of Braxton 12.5 Plt Count 161 MPV 9.0 Immature Gran % (Auto) 0.600 Neut % (Auto) 75.6 H Lymph % (Auto) 17.2 L Gilchrist % (Auto) 6.1 Eos % (Auto) 0.3 Baso % (Auto) 0.2 Absolute Neuts (auto) 9.0 H Absolute Lymphs (auto) 2.04 Nucleated RBC % 0 PT 12.8 INR 1.0 APTT 23.8 L Sodium 137 Potassium 4.4 Chloride 107 Carbon Dioxide 24.0 Anion Gap 6 BUN 24 H Creatinine 1.06 Estim Creat Clear Calc 72.83 Est GFR (MDRD) Af Amer 88 Est GFR (MDRD) Non-Af 73 BUN/Creatinine Ratio 22.6 H Glucose 185 H Calcium 8.9 Radiography Diagnostic Testing: Venous duplex of the right lower extremity was obtained. There is no evidence of DVT. Treatment and Re-Evaluation Narrative: Patient was given a dose of morphine and Zofran here. Patient was given a dose of Ancef. Patient was given a prescription for Keflex. Patient was instructed to keep his leg elevated. Patient was instructed to follow-up with his primary care physician in 5 to 7 days. Patient and family understood and were agreeable with the plan. All questions were answered. Discharge Plan Triage Chief Complaint: Other, Pain/Inj ED Provider: Ye Torres Dx/Rx/DC Orders Clinical Impression: Cellulitis of right lower leg, Leg edema Instructions: ED Cellulitis Prescriptions: New cephalexin [cephalexin] 500 mg capsule 500 mg PO Q6 Qty: 40 0RF No Action metformin [Glucophage] 500 mg tablet 2,000 mg PO DAILY ezetimibe [Zetia] 10 mg tablet 10 mg PO DAILY ramipril 10 mg capsule 10 mg PO DAILY docusate sodium [Colace] 100 mg capsule 100 mg PO TID cholecalciferol (vitamin D3) 125 mcg (5,000 unit) capsule 125 mcg PO .QOD carvedilol 12.5 MG tablet 12.5 mg PO BID 0RF aspirin 81 MG tablet,chewable 81 mg PO DAILY@0800 Qty: 0 0RF Patient Comments: [facility] Rx Instructions: resume tomorrow insulin glargine 100 unit/mL (3 mL) insulin pen 8 unit subcut QHS PRN (Reason: SLIDING SCALE) Patient Comments: DIABETES insulin aspart U-100 100 unit/mL (3 mL) insulin pen 1 unit subcut QAC PRN (Reason: SLIDING SCALE) Patient Comments: DIABETES acetaminophen 325 mg Tablet 650 mg PO Q4H PRN PRN (Reason: Pain Or Fever) Qty: 0 0RF Primary Care Provider: Kaycee Singer Referrals: Kaycee Singer MD [Primary Care Provider] - 5-7 Days Disposition Disposition: Home, Self Care
--- NOTE | 2023-11-14 11:06 | VDLE_ITS ---
Reason For Study: Right leg pain RIGHT LEFT GSV is normal. CFV is compressible, spontaneous, phasic, CFV is compressible, spontaneous, phasic, competent, and demonstrates normal competent and demonstrates normal augmentation. augmentation. FV is compressible, spontaneous, phasic, competent and demonstrates normal augmentation. POP V is compressible, spontaneous, phasic, competent and demonstrates normal augmentation. T/P Trunk is compressible. PTV is compressible. RT PerV is compressible. Vascularized lymph nodes noted in the right groin with the largest measuring 0.94 x 3.46 cm. Procedure This is a venous duplex using B-mode, color flow and spectral Doppler. Exam performed portable in ED. A preliminary report was called and/or faxed to Dr. Torres. VL/Venous Duplex US, Unilateral Interpretation Summary There is no evidence of right lower extremity deep vein thrombosis. Right great saphenous vein appears patent and compressible segmentally. Right groin lymph nodes with large st measuring 0.94 x 3.46 cm and second measuring 0.84 x 2.07 cm Normal flow patterns left common femoral vein Ordering Physician: Ye Torres Referring Physician: Kaycee Singer M.D. Performed By: Verona Krishnan RVT
--- NOTE | 2023-11-14 11:16 | NURSING ---
[id number] called fabrication department supervisor [id number] sumit zaidi, called back
[2023-11-14] MEDS: Morphine 4 MG/ML Syringe IV (11:36)
[2023-11-14] MEDS: Ondansetron 4 MG/2 ML Vial IV (11:36)
[2023-11-14 11:38] VITALS: BMI 30.9
[2023-11-14 11:42] LABS: Absolute Lymphocyte Count 2.04 X10^3/uL (0.83-4.51); Basophil# 0.02 X10^3/uL; Basophil% 0.2 % (0-1); Eosinophil# 0.03 X10^3/uL; Eosinophils% 0.3 % (0-5); Hematocrit 48.2 % (40-54); Hemoglobin 16.7 g/dL (13.0-16.5); Lymphocyte # 2.04 X10^3/ul (0.83-4.51); Lymphocyte % 17.2 % (19-41); Mean Corp Hgb Conc 34.6 g/dL (32-36); Mean Corpuscular Hgb 31.3 pg (27.0-32.0); Mean Corpuscular Volume 90.4 fL (80-94); Monocyte# 0.72 X10^3/uL; Monocyte% 6.1 % (0-10); NRBC Flagged by Analyzer 0 % (0-5); Neutrophil # 8.96 X10^3/uL (2.7-7.7); Neutrophil % 75.6 % (47-70); Platelet Count 161 K/mm3 (150-450); RBC Distribution Width CV 12.5 % (11.6-14.6); RBC Distribution Width SD 41.2 fl (35.1-43.9); Red Blood Count 5.33 M/mm3 (4.6-6.2); White Blood Count 11.8 K/mm3 (4.4-11.0)
[2023-11-14 11:52] LABS: Prothrombin Time (Protime)PT. 12.8 SECONDS (11.7-14.9)
[2023-11-14 11:56] LABS: Anion Gap 6 (5-15); BUN 24 mg/dL (7-18); BUN/Creat Ratio 22.6 RATIO (10-20); Calcium,Total 8.9 mg/dL (8.5-10.1); Chloride 107 mmol/L (98-107); Creatinine, Serum 1.06 mg/dL (0.70-1.30); EST Glomerular Filtration Rate 73 mL/min (>60); Est Glom Filt Rate - Afr Amer 88 mL/min (>60); Estimated Creatinine Clearance 72.83 ml/min; Glucose 185 mg/dL (74-106); Potassium 4.4 mmol/L (3.5-5.1); Sodium Level 137 mmol/L (136-145)
[2023-11-14 12:01] LABS: Partial Thromboplast Time 23.8 Seconds (24.1-36.2)
[2023-11-14 12:16] VITALS: PULSE 85; RESP 18; O2SAT 97
[2023-11-14] MEDS: Cefazolin 1 GM/50 ML BAG IV (12:16)
[2023-11-14 12:59] VITALS: BP 160/80; PULSE 99; RESP 16; TEMP 36.6; O2SAT 99
== END 2023-11-14 13:02 | disposition home or self-care (01) ==
PROVIDERS: Emergency Provider Emergency Medicine; PCP Internal Medicine; Visit Provider Emergency Medicine
DX: L03.115 Cellulitis of right lower limb (principal); I11.0 Hypertensive heart disease with heart failure; I50.22 Chronic systolic (congestive) heart failure; E11.9 Type 2 diabetes mellitus without complications; R60.0 Localized edema; I25.10 Atherosclerotic heart disease of native coronary artery without angina pectoris; E78.2 Mixed hyperlipidemia; S80.811A Abrasion, right lower leg, initial encounter; X58.XXXA Exposure to other specified factors, initial encounter
CPT/HCPCS: 80048; 85025; 85610; 85730; 93971; 96365; 96375; 99282; A4216; J2405

== ENCOUNTER 2025-01-31 11:51 | Emergency (ER) | payer MEDICARE, OTHER, SELFPAY ==
[2025-01-31 11:51] VITALS: BP 185/86; PULSE 69; RESP 16; TEMP 36.4; O2SAT 100; BMI 33.9
--- NOTE | 2025-01-31 12:10 | EKG12_ITS ---
Test Reason : GENERAL Blood Pressure : */* mmHG Vent. Rate : 69 BPM Atrial Rate : 69 BPM P-R Int : 206 ms QRS Dur : 142 ms QT Int : 410 ms P-R-T Axes : 53 -56 6 degrees QTcB Int : 439 ms Normal sinus rhythm Left axis deviation Right bundle branch block Abnormal ECG Confirmed by HANNY MONTANA, ERIKA ([id number]), publications editor LEIGH ANN MARTINEZ ([id number]) on 02/01/2025 8:24:01 AM Referred By: Confirmed By: ERIKA GAMINO MD
--- NOTE | 2025-01-31 12:10 | RAD_ITS ---
PROCEDURE: ACUTE ABDOMEN INC CHEST 01/31/2025 REASON FOR EXAM: NAUSEA AND VOMITING TECHNIQUE: ACUTE ABDOMEN INC CHEST COMPARISON: None FINDINGS: Hardware: EKG electrodes are seen. Heart: The heart size is normal. Lungs: Lungs are clear. Bowel gas: Large amount of fecal material is seen in the colon. Calcified splenic artery. Free air: No free air. Calcifications: No suspicious calcifications. Bones: There are degenerative changes of the spine. Status post left hip replacement. Other: Calcification of the vas deferens. This is seen in patient with diabetes. RAD/Acute Abdomen Inc Chest IMPRESSION: Large amount of fecal material is seen in the colon. Reading Location: [place] [id number]
--- NOTE | 2025-01-31 12:11 | EDS_ITS ---
HPI History of Present Illness Chief Complaint: General Illness Narrative Narrative: 74-year-old male past medical history of diabetes, on sliding scale insulin and Lantus at night, presents with nausea and vomiting, 2 episodes today after eating breakfast. He denies any pain, no abdominal pain, no fevers or chills. EMS reports that his called because of the nausea and vomiting and he was diaphoretic. He states that while he was in the ambulance riding backwards he felt lightheaded and slightly nauseated, but his symptoms have resolved. He denies any pain anywhere. No chest pain or abdominal pain, no diarrhea. He states he feels well, and he is not quite sure why his took it upon herself to call EMS. He denies any blood in his emesis, no exacerbating or alleviating factors, but he feels back to his baseline and normal currently. [facility] Medical History Wears glasses Ambulates with cane Insulin dependent diabetes mellitus Prostate disease Arthritis Back pain Dietary restriction Heartburn Non-smoker Leg cramps History of pain when walking History of echocardiogram History of stress test Cardiology follow-up encounter History of heart attack Syncope CVA (cerebral vascular accident) Stenosis of right carotid artery Mixed hyperlipidemia History of pleural effusion Essential hypertension Presence of stent in coronary artery (~05/04/20) Atherosclerotic heart disease of [place] coronary artery without angina pectoris Blood in the urine Morbid obesity Left pontine stroke DM2 (diabetes mellitus, type 2) Chronic systolic CHF (congestive heart failure) Altered mental status CLL (chronic lymphocytic leukemia) Home Medications ?Medication ?Instructions ?Recorded ?Last Taken ?Type aspirin 81 mg chewable tablet 81 mg PO DAILY@0800 ##0 11/03/16 06/05/23 Rx carvedilol 12.5 mg tablet 12.5 mg PO BID 11/03/1605/18 Rx ezetimibe 10 mg tablet (Zetia) 10 mg PO DAILY choleste rol 06/14/19 06/11/23 History metformin 500 mg tablet 2,000 mg PO DAILY 06/14/19 0 05/03/20 History (Glucophage) ramipril 10 mg capsule 10 mg PO DAILY 06/14/2105/18 History insulin glargine 100 unit/mL (3 8 unit subcut QHS PRN SLIDING SCALE 06/10/22 Unknown History mL) subcutaneous pen cholecalciferol (vitamin D3) 125 125 mcg PO .QOD 12/26 Unknown History mcg (5,000 unit) capsule insulin aspart U-100 100 unit/mL 1 unit subcut QAC PRN SLIDING SCALE 12/26/22 Unknown History (3 mL) subcutaneous pen acetaminophen 325 mg tablet 650 mg (2 x 325 mg) PO Q4H PRN PRN 06/11/23 Unknown Rx Pain Or Fever #0 tabs docusate sodium 100 mg capsule 100 mg PO BID constipat ion 05/13/24 Unknown History (Colace) Allergy/AdvReac Type Severity Reaction Status Date / Time atorvastatin (From Lipitor) Allergy Severe Other Verified 01/31/25 11:52 pravastatin (From Pravachol) Allergy Severe Other Verified 01/31/25 11:52 rosuvastatin (From Crestor) Allergy Severe Other Verified 01/31/25 11:52 Ciximkh-HEZ-OyS Reductase Allergy Severe Other Verified 01/31/25 11:52 Inhibitor (Gmtykbo-Nue-Uxz Reductase Inhibitor) ciprofloxacin AdvReac Severe dizziness, Verified 01/31/25 11:52 vomiting Family History Mother CAD (coronary artery disease) CVA (cerebral vascular accident) Surgical History S/P inguinal hernia repair History of cardiac catheterization Hx of colonoscopy History of cystoscopy History of left hip replacement (~10/2021) History of bilateral cataract extraction Presence of coronary angioplasty implant and graft (~02/20/13) Social History household members: spouse Smoking Status: Never smoker alcohol intake: never substance use type: does not use caffeine: No ROS ROS ED ROS Narrative Review of systems positive for nausea and vomiting twice today after breakfast. No abdominal pain, no problems with bowel movements, no dysuria or hematuria, no fevers or chills, no chest pain. Symptoms resolved. EXAM Physical Exam Narrative Exam Narrative: Afebrile. Vital signs noted. Nontoxic-appearing. Cardiovascular examination reveals regular rate and rhythm. Lungs are clear to auscultation bilaterally. The abdomen is soft, nontender, without guarding or rebound. Positive bowel s ounds. Nonsurgical abdomen. Neurological examination nonfocal, nonlateralizing. Awake, alert, oriented, interactive, appropriate. Trace pedal edema symmetric and equal bilaterally. Const Vital Signs: 01/31/25 11:51 Temperature 97.5 F L Temperature Source Oral Pulse Rate 69 Respiratory Rate 16 Blood Pressure 185/86 H Blood Pressure Mean 119 Pulse Ox 100 Oxygen Delivery Method Room Air MDM MDM MDM Narrative Medical decision making narrative: Differential diagnosis includes but not limited to diabetic ketoacidosis versus pancreatitis versus partial small bowel obstruction. I doubt diverticulitis based on the history and physical. I do not feel he needs CT imaging as the patient has a nontender abdomen. I will obtain x-rays of the chest and abdomen as well as urinalysis, CBC, CMP, and lipase. He declined any antiemetics. Discharge Plan Triage Chief Complaint: General Illness ED Provider: Gustabo Florian Dx/Rx/DC Orders Prescriptions: No Action metformin [Glucophage] 500 mg tablet 2,000 mg PO DAILY ezetimibe [Zetia] 10 mg tablet 10 mg PO DAILY ramipril 10 mg capsule 10 mg PO DAILY docusate sodium [Colace] 100 mg capsule 100 mg PO BID cholecalciferol (vitamin D3) 125 mcg (5,000 unit) capsule 125 mcg PO .QOD carvedilol 12.5 MG tablet 12.5 mg PO BID 0RF aspirin 81 MG tablet,chewable 81 mg PO DAILY@0800 Qty: 0 0RF Patient Comments: [facility] Rx Instructions: resume tomorrow insulin glargine 100 unit/mL (3 mL) insulin pen 8 unit subcut QHS PRN (Reason: SLIDING SCALE) Patient Comments: DIABETES insulin aspart U-100 100 unit/mL (3 mL) insulin pen 1 unit subcut QAC PRN (Reason: SLIDING SCALE) Patient Comments: DIABETES acetaminophen 325 mg Tablet 650 mg PO Q4H PRN PRN (Reason: Pain Or Fever) Qty: 0 0RF Primary Care Provider: Kaycee Singer Referrals: Kaycee Singer MD [Primary Care Provider] - Print Language: Maltese
--- NOTE | 2025-01-31 12:11 | EX.ED.DYSGE1 ---
HPI History of Present Illness Chief Complaint: General Illness Narrative Narrative: 74-year-old male past medical history of diabetes, on sliding scale insulin and Lantus at night, presents with nausea and vomiting, 2 episodes today after eating breakfast. He denies any pain, no abdominal pain, no fevers or chills. EMS reports that his called because of the nausea and vomiting and he was diaphoretic. He states that while he was in the ambulance riding backwards he felt lightheaded and slightly nauseated, but his symptoms have resolved. He denies any pain anywhere. No chest pain or abdominal pain, no diarrhea. He states he feels well, and he is not quite sure why his took it upon herself to call EMS. He denies any blood in his emesis, no exacerbating or alleviating factors, but he feels back to his baseline and normal currently. [facility] Medical History Wears glasses Ambulates with cane Insulin dependent diabetes mellitus Prostate disease Arthritis Back pain Dietary restriction Heartburn Non-smoker Leg cramps History of pain when walking History of echocardiogram History of stress test Cardiology follow-up encounter History of heart attack Syncope CVA (cerebral vascular accident) Stenosis of right carotid artery Mixed hyperlipidemia History of pleural effusion Essential hypertension Presence of stent in coronary artery (~05/04/20) Atherosclerotic heart disease of [place] coronary artery without angina pectoris Blood in the urine Morbid obesity Left pontine stroke DM2 (diabetes mellitus, type 2) Chronic systolic CHF (congestive heart failure) Altered mental status CLL (chronic lymphocytic leukemia) Home Medications ?Medication ?Instructions ?Recorded ?Last Taken ?Type carvedilol 12.5 mg tablet 12.5 mg PO BID 11/03/16 01/31/25 Rx ezetimibe 10 mg tablet (Zetia) 10 mg PO DAILY cholesterol 06/14/19 01/31/25 History ramipril 10 mg capsule 10 mg PO DAILY 06/14/21 01/31/25 History insulin glargine 100 unit/mL (3 8 unit subcut QHS PRN SLIDING SCALE 01/24/22 Unknown History mL) subcutaneous pen insulin aspart U-100 100 unit/mL 1 unit subcut QAC PRN SLIDING SCALE 12/26/22 01/31/25 History (3 mL) subcutaneous pen docusate sodium 100 mg capsule 100 mg PO BID constipation 05/13/24 01/31/25 History (Colace) acetaminophen 325 mg tablet 325 mg PO Q4H PRN Pain Or Fever 01/31/25 Unknown History aspirin 81 mg chewable tablet 162 mg PO DAILY 01/31/25 01/31/25 History cholecalciferol (vitamin D3) 50 50 mcg PO DAILY 01/31/25 01/31/25 History mcg (2,000 unit) tablet (D3 DOTS) metformin 500 mg tablet,extended 2,000 mg PO DAILY 01/31/25 01/31/25 History release 24 hr Allergy/AdvReac Type Severity Reaction Status Date / Time atorvastatin (From Lipitor) Allergy Severe Other Verified 01/31/25 11:52 pravastatin (From Pravachol) Allergy Severe Other Verified 01/31/25 11:52 rosuvastatin (From Crestor) Allergy Severe Other Verified 01/31/25 11:52 Tmshrdw-EVT-SwJ Reductase Allergy Severe Other Verified 01/31/25 11:52 Inhibitor (Truynjr-Zof-Jbs Reductase Inhibitor) ciprofloxacin AdvReac Severe dizziness, Verified 01/31/25 11:52 vomiting Family History Mother CAD (coronary artery disease) CVA (cerebral vascular accident) Surgical History S/P inguinal hernia repair History of cardiac catheterization Hx of colonoscopy History of cystoscopy History of left hip replacement (~10/2021) History of bilateral cataract extraction Presence of coronary angioplasty implant and graft (~02/20/13) Social History household members: spouse Smoking Status: Never smoker alcohol intake: never substance use type: does not use caffeine: No ROS ROS ED ROS Narrative Review of systems positive for nausea and vomiting twice today after breakfast. No abdominal pain, no problems with bowel movements, no dysuria or hematuria, no fevers or chills, no chest pain. Symptoms resolved. EXAM Physical Exam Narrative Exam Narrative: Afebrile. Vital signs noted. Nontoxic-appearing. Cardiovascular examination reveals regular rate and rhythm. Lungs are clear to auscultation bilaterally. The abdomen is soft, nontender, without guarding or rebound. Positive bowel sounds. Nonsurgical abdomen. Neurological examination nonfocal, nonlateralizing. Awake, alert, oriented, interactive, appropriate. Trace pedal edema symmetric and equal bilaterally. Const Vital Signs: 01/31/25 11:51 01/31/25 12:51 Temperature 97.5 F L Temperature Source Oral Pulse Rate 69 67 Respiratory Rate 16 15 Blood Pressure 185/86 H 178/74 H Blood Pressure Mean 119 108 Pulse Ox 100 100 Oxygen Delivery Method Room Air Room Air MDM MDM MDM Narrative Medical decision making narrative: Differential diagnosis includes but not limited to diabetic ketoacidosis versus pancreatitis versus partial small bowel obstruction. I doubt diverticulitis based on the history and physical. I do not feel he needs CT imaging as the patient has a nontender abdomen. I will obtain x-rays of the chest and abdomen as well as urinalysis, CBC, CMP, and lipase. He declined any antiemetics. EKG was obtained and interpreted by myself independently as normal sinus rhythm at 69 bpm without ectopy or acute ST changes. No STEMI. I reviewed his laboratory work and he has normal white count of 6.4 with hemoglobin normal at 15.6, hematocrit 46.3, platelet count 207. Electrolyte panel is significant for a BUN of 22 and creatinine 1.21 with glucose 94, LFTs are grossly unremarkable. Lipase normal at 55 so I doubt pancreatitis. Urinalysis is negative for infection, negative for ketones. I do not feel antibiotics are indicated. X-rays of the abdomen and chest interpreted by myself independently show the chest to be clear of any pneumonia or pneumothorax. I reviewed the radiology report confirms my independent interpretation. Also on the abdominal x-rays, there is a large amount of stool in the colon on my interpretation, which is confirmed by the radiology report. However it is a nonobstructive pattern. Upon repeat examination at approximately 1400, he is resting comfortably. His is at the bedside. He declined any antiemetics for home use and feels well enough to be discharged. I do not feel he requires observation or admission at this time. Return instructions to the emergency department were reviewed. Disposition is discharged home in stable condition. History & Record Review Discussion w/independent historian: Patient and Family () Lab Data Attestation: I reviewed the patient's lab results. Labs: Laboratory Results - last 24 hr 01/31/25 01/31/25 11:50 13:25 WBC 6.4 RBC 5.32 Hgb 15.6 Hct 46.3 MCV 87.0 MCH 29.3 MCHC 33.7 RDW Std Deviation 44.5 H RDW Coeff of Braxton 13.9 Plt Count 207 MPV 9.1 Immature Gran % (Auto) 1.200 H Neut % (Auto) 57.3 Lymph % (Auto) 30.4 Kinney % (Auto) 7.2 Eos % (Auto) 3.0 Baso % (Auto) 0.9 Absolute Neuts (auto) 3.7 Absolute Lymphs (auto) 1.95 Nucleated RBC % 0 Sodium 133 Potassium 4.9 Chloride 98 Carbon Dioxide 24.4 Anion Gap 11 BUN 22 H Creatinine 1.21 H Estim Creat Clear Calc 58.94 Est GFR (MDRD) Non-Af 62 BUN/Creatinine Ratio 18.3 Glucose 94 Calcium 9.4 Total Bilirubin 0.69 AST 19 ALT 10 Alkaline Phosphatase 50 Total Protein 6.3 Albumin 4.4 Globulin 1.9 L Albumin/Globulin Ratio 2.3 Lipase 55 Urine Color Yellow Urine Clarity Sl. Cloudy Urine pH 6.5 Ur Specific [place] 1.015 Urine Protein 15 H Urine Glucose (UA) Normal Urine Ketones Negative Urine Occult Blood Negative Urine Nitrite Negative Urine Bilirubin Negative Urine Urobilinogen Normal Ur Leukocyte Esterase Negative Urine RBC 0-5 SEEN Urine WBC 0 SEEN Ur Squamous Epith Cells 0-5 SEEN Urine Bacteria 0 SEEN Urine Mucus 0 SEEN Radiography Diagnostic Testing: Clinical Impression(s) from Imaging Studies Acute Abdomen Series 01/31/25 12:10 IMPRESSION: Large amount of fecal material is seen in the colon. Reading Location: [place] [id number] Discharge Plan Triage Chief Complaint: General Illness ED Provider: Gustabo Florian Dx/Rx/DC Orders Clinical Impression: Nausea and vomiting, Lightheadedness, Diaphoresis Instructions: ED Vomiting (Adult) Prescriptions: No Action ezetimibe [Zetia] 10 mg tablet 10 mg PO DAILY ramipril 10 mg capsule 10 mg PO DAILY docusate sodium [Colace] 100 mg capsule 100 mg PO BID carvedilol 12.5 MG tablet 12.5 mg PO BID 0RF insulin glargine 100 unit/mL (3 mL) insulin pen 8 unit subcut QHS PRN (Reason: SLIDING SCALE) insulin aspart U-100 100 unit/mL (3 mL) insulin pen 1 unit subcut QAC PRN (Reason: SLIDING SCALE) Patient Comments: PT DID 10 UNITS THIS MORNING 01/31/25 cholecalciferol (vitamin D3) [D3 DOTS] 50 mcg (2,000 unit) tablet 50 mcg PO DAILY acetaminophen 325 mg Tablet 325 mg PO Q4H PRN (Reason: Pain Or Fever) aspirin 81 MG tablet,chewable 162 mg PO DAILY Patient Comments: [facility] Rx Instructions: resume tomorrow metformin 500 mg tablet extended release 24 hr 2,000 mg PO DAILY Primary Care Provider: Kaycee Singer Referrals: Kaycee Singer MD [Primary Care Provider] - 3-5 Days if not improving Activity Restrictions/Additional Instructions: Return to the emergency department with inability to take medications, increased nausea and vomiting, abdominal pain, new or worsening symptoms. Print Language: Turkish
[2025-01-31] MEDS: 0.9% Normal Saline (1000mL) 1,000 ML 999 ML IV (12:17)
[2025-01-31 12:24] LABS: Absolute Lymphocyte Count 1.95 X10^3/uL (0.83-4.51); Absolute Neutrophil Count 3.7 X10^3/uL (2.0-7.7); Basophil# 0.06 X10^3/uL; Basophil% 0.9 % (0-1); Eosinophil# 0.19 X10^3/uL; Hematocrit 46.3 % (40-54); Hemoglobin 15.6 g/dL (13.0-16.5); Lymphocyte # 1.95 X10^3/ul (0.83-4.51); Lymphocyte % 30.4 % (19-41); Mean Corp Hgb Conc 33.7 g/dL (32-36); Mean Corpuscular Hgb 29.3 pg (27.0-32.0); Mean Platelet Vol. 9.1 fl (6.2-12.0); Monocyte# 0.46 X10^3/uL; Monocyte% 7.2 % (0-10); NRBC Flagged by Analyzer 0 % (0-5); Neutrophil # 3.67 X10^3/uL (2.7-7.7); Neutrophil % 57.3 % (47-70); Platelet Count 207 K/mm3 (150-450); RBC Distribution Width CV 13.9 % (11.6-14.6); RBC Distribution Width SD 44.5 fl (35.1-43.9); Red Blood Count 5.32 M/mm3 (4.6-6.2); White Blood Count 6.4 K/mm3 (4.4-11.0)
[2025-01-31 12:51] VITALS: BP 178/74; PULSE 67; RESP 15; O2SAT 100
[2025-01-31 13:06] LABS: ALB/GLOB Ratio 2.3 RATIO (0.9-2.4); AST(SGOT) 19 U/L (<=37); Alanine Aminotransfer ALT/SGPT 10 U/L (<=46); Albumin, Serum 4.4 g/dL (3.4-4.8); Alkaline Phosphatase 50 U/L (40-129); Anion Gap 11 (5-15); BUN 22 mg/dL (4-19); BUN/Creat Ratio 18.3 RATIO (10-20); Calcium,Total 9.4 mg/dL (7.6-11.0); Carbon Dioxide 24.4 mmol/L (21.0-32.0); Chloride 98 mmol/L (98-108); Creatinine, Serum 1.21 mg/dL (0.70-1.20); EST Glomerular Filtration Rate 62 (>60); Estimated Creatinine Clearance 58.94 ml/min (50-250); Globulin 1.9 g/dL (2.2-4.2); Glucose 94 mg/dL (70-99); Lipase 55 U/L (13-75); Potassium 4.9 mmol/L (3.3-5.1); Protein, Total 6.3 g/dL (5.9-8.4); Sodium Level 133 mmol/L (133-145); Total Bilirubin 0.69 mg/dL (0.00-1.30)
[2025-01-31 13:27] LABS: Bacteria 0 SEEN /hpf (None Seen); Mucous, Urine 0 SEEN /hpf (<or=2+); White Blood Cells 0 SEEN /hpf (0-5)
[2025-01-31 13:29] LABS: Color, Urine Yellow (Yellow); Glucose, Dipstick Normal (Normal); Ketone-Dipstick Negative (Negative); Leukocyte Esterase-Dipstick Negative /ul (Negative); Nitrite-Dipstick Negative (Negative); Occult Blood-Urine Negative /ul (Negative); Protein-Dipstick 15 mg/dl (Negative); Specific Gravity, Urine 1.015 (1.002-1.030); Urine Bilirubin Dipstick Negative (Negative); Urine Clarity Sl. Cloudy (Clear); Urine Urobilinogen Normal (Normal); Urine pH 6.5 (5.0 - 8.0)
[2025-01-31 13:34] LABS: Red Blood Cells-Urine 0-5 SEEN /hpf (0-5); Squamous Epithelial Cells - UA 0-5 SEEN /hpf (0-5)
[2025-01-31 14:29] VITALS: BP 154/80; PULSE 71; RESP 14; TEMP 36.6; O2SAT 96
== END 2025-01-31 14:30 | disposition home or self-care (01) ==
LOC: ED 12:39
PROVIDERS: Emergency Provider Emergency Medicine; PCP Internal Medicine; Visit Provider Emergency Medicine
DX: R11.2 Nausea with vomiting, unspecified (principal); I50.32 Chronic diastolic (congestive) heart failure; I11.0 Hypertensive heart disease with heart failure; E11.9 Type 2 diabetes mellitus without complications; Z79.4 Long term (current) use of insulin; R42 Dizziness and giddiness; R61 Generalized hyperhidrosis; I25.2 Old myocardial infarction; E78.2 Mixed hyperlipidemia; I25.10 Atherosclerotic heart disease of native coronary artery without angina pectoris; Z95.1 Presence of aortocoronary bypass graft; Z86.73 Personal history of transient ischemic attack (TIA), and cerebral infarction without residual deficits; Z79.82 Long term (current) use of aspirin; Z79.84 Long term (current) use of oral hypoglycemic drugs; Z79.899 Other long term (current) drug therapy
CPT/HCPCS: 74022; 80053; 81001; 83690; 85025; 93005; 96360; 96361; 99285; A4216

== ENCOUNTER 2025-07-08 02:23 | Emergency (ER) | payer MEDICARE, OTHER, SELFPAY ==
[2025-07-08 02:27] VITALS: BP 220/99; PULSE 80; RESP 18; TEMP 36.7; O2SAT 99; BMI 34.4
[2025-07-08 02:42] VITALS: BP 218/104
--- NOTE | 2025-07-08 03:10 | RAD_ITS ---
PROCEDURE: SHOULDER MIN 2 VIEWS 07/08/2025 REASON FOR EXAM: PAIN TECHNIQUE: Procedure Code: RADSH Modality: DX Procedure: SHOULDER MIN 2 VIEWS Laterality: Left. COMPARISON: None. FINDINGS: Mild osteopenia of the visualized bones. Degenerative joint disease. No fracture or dislocation is seen. No lytic or blastic bone lesion is noted. RAD/Shoulder min 2 Views IMPRESSION: No evidence for acute abnormality. Reading [facility]
--- OUTSIDE RECORDS SUMMARY | 2025-07-08 04:06 | XMS RPT_ITS | CCD ---
Author Organization [facility] Care Team Providers Care Receptionist Secretary Name Role Phone WILLIE, LUTHER E Unavailable Unavailable WILLIE, LUTHER E Unavailable Unavailable WILLIE, LUTHER Unavailable Unavailable WILLIE, LUTHER Unavailable Unavailable WILLIE, LUTHER Unavailable Unavailable WILLIE, LUTHER Unavailable Unavailable SELF, SELF Referring Unavailable EVIE GREWAL Primary Care Unavailable Evie Grewal MD Primary Care Provider Thomas PARKER, Hakan Hermosillo Unavailable Unavailfermin e Tomas Raymond Unavailable Unavailable Glendy Ochoa MD Unavailable Glendy Ochoa MD Unavailable Dr. Evie Grewal Primary Care Provider Dr. Evie Grewal Referring Provider Power GARCIA, PA Becca Hermosillo Attending Provider Dr. Ru Alexander Attending Provider Dr. Evie Grewal Primary Care Provider Dr. Evie Grewal Referring Provider Dr. Familia Acosta Attending Provider Evie Grewal MD Primary Care Provider Thomas PARKER, Hakan Hermosillo Unavailable Glendy Gonzalez MD Unavailable Glendy Ochoa MD Unavailable Glendy Ochoa MD Unavailable Evie Grewal MD Primary Care Provider Hakan PARKER, Thomas Hermosillo Unavailable UnavailGlendy Jacob MD Unavailable Glendy Ochoa MD Unavailable Dr. Evie Grewal Primary Care Provider Dr. Evie Grewal Referring Provider Power GARCIA PA Becca Hermosillo Attending Provider Dr. Kentrell Chery Attending Provider Dr. Kentrell Chery Referring Provider Thomas Mcclendon RN Unavailable UnavailDr. Evie Herrera Primary Care Provider Dr. Shon Mcadams Attending Provider Dr. Shon Mcadams Referring Provider Dr. Shon Mcadams Other Provider Dr. Evie Grewal Referring Provider Toan SCHILLING, SALES & SERVICE ASSOCIATEEssenceC Nadia Attending Provider Dr. Evie Grewal Primary Care Provider Dr. Evie Grewal Referring Provider RADHA Reinoso Attending Provider Evie Grewal MD Primary Care Provider Hernandez HARVEST SUPERVISOR.COFFEE SHOP ATTENDANT, Anna Unavailable Adria HARVEST SUPERVISOR.DROP FORGER HELPER, Ronald Unavailable Adria HARVEST SUPERVISOR.DROP FORGER HELPER, Ronald Unavailable Adria HARVEST SUPERVISOR.DROP FORGER HELPER, Ronald Unavailable Hernandez HARVEST SUPERVISOR.COFFEE SHOP ATTENDANT, Anna Unavailable Dr. Evie Grewal MD Primary Care Provider Gustabo Florian MD Emergency Provider Gustabo Florian MD Attending Provider Dr. Evie Grewal MD Referring Provider Becca Reinoso Attending Provider Talampas, Evie D Primary Care Unavailable Becca Reinoso Attending Unavail able Talampas, Evie D Referring Unavailable Talampas, Evie D Primary Care Unavailable Rhys Perry Attending Unavailable Talampas, Evie D Referring Unavailable Talampas, Evie D Primary Care Unavailable Gustabo Florian Attending Unavailable TALAMPAS, EVIE D Attending Unavailable TALAMPAS, EVIE D Primary Care Unavailable TESTRAKE, PAPA Attending Unavailable TESTRAKE, PAPA Referring Unavailable TALAMPAS, EVIE D Primary Care Unavailable ADRIA, ROSA Referring Unavailable TALAMPAS, EVIE D Primary Care Unavailable TALAMPAS, EVIE D Attending Unavailable TALAMPAS, EVIE D Primary Care Unavailable TESTRAKE, PAPA Attending Unavailable TESTRAKE, PAPA Referring Unavailable TALAMPAS, EVIE D Primary Care Unavailable ANNA HERNANDEZ Attending Unavailable TALAMPAS, EVIE D Referring Unavailable TALAMPAS, EVIE D Primary Care Unavailable TESTRAKE, PAPA Attending Unavailable TESTRAKE, PAPA Referring Unavailable TALAMPAS, EVIE D Primary Care Unavailable TALAMPAS, EVIE D Referring Unavailable TALAMPAS, EVIE D Primary Care Unavailable TALAMPAS, EVIE D Attending Unavailable TALAMPAS, EVIE D Primary Care Unavailable TESTRAKE, PAPA Attending Unavailable TESTRAKE, PAPA Referring Unavailable TALAMPAS, EVIE D Primary Care Unavailable TALAMPAS, EVIE D Referring Unavailable TALAMPAS, EVIE D Primary Care Unavailable Allergies Allergy Classification Reported Allergen(s) Allergy Type Date of Onset Reaction(s) Facility HMG-CoA Reductase Inhibitors (statins) (6 sources) rosuvastatin Drug Allergy 6 Intolerance, Other: See Comments [facility] Work Phone: Opioid Agonists (2 sources) oxyCODONE Drug Allergy 2 Vomiting [facility] Quinolones (antibiotic) (2 sources) Ciprofloxacin Drug Allergy 7 Vomiting [facility] (20 sources) atorvastatin; Translations: [ATORVASTATIN CALCIUM] Drug Allergy 2 Other: See Comments [facility] Other [place] Repository (20 sources) ciprofloxacin; Translations: [CIPROFLOXACIN] Drug Allergy 7 Vomiting [facility] Repository (20 sources) Hmg-Coa Reductase Inhibitors (Statins); Translations: [PZPCCTR-XOG-UNI REDUCTASE INHIBITORS] Propensity to adverse reactions to drug (disorder) 9 Intolerance [facility] Repository (20 sources) pravastatin; Translations: [PRAVASTATIN SODIUM] Drug Allergy 2 Intolerance [facility] Repository (20 sources) rosuvastatin; Translations: [ROSUVASTATIN] Drug Allergy 6 Intolerance [facility] Repository Comment on above: CAN'T MOVE (20 sources) oxyCODONE; Translations: [OXYCODONE] Drug Allergy 2 Vomiting [facility] (7 sources) atorvastatin Drug Allergy 2 Other [facility] Comment on above: CAN'T MOVE (7 sources) Pravastatin Drug Allergy 2 Other [facility] Comment on above: CAN'T MOVE (8 sources) Ujiorph-Nrd-Mri Reductase Inhibitor; Translations: [Oozvkra-Mkx-Mcz Reductase Inhibitor] Allergy to substance 2 Other [facility] Comment on above: CAN'T MOVE (1 source) atorvastatin Drug Allergy 5 [facility] Repository (1 source) Pravastatin Drug Allergy 5 [facility] Repository Medications Current Medications Medication Drug Class(es) Dates Sig (Normalized) Sig (Original) acetaminophen 325 mg oral tablet (20 sources) Start: 01-31-2025 take 1 tablet by mouth every four hours as needed for pain Acetaminophen 325 mg Tablet Active 325 mg PO Q4H as needed for Pain Or Fever January 31, 2025 12:00am Start: 06-11-2023 End: 01-31-2025 take 2 tablets by mouth every four hours as needed for pain Acetaminophen 325 mg Tablet Discontinued 650 mg PO EVERY 4 HOURS NEEDED as needed for Pain Or Fever 0 0 June 11, 2023 12:00am January 31, 2025 12:50pm Start: 06-11-2023 take 650 mg by mouth every four hours as needed Acetaminophen Active 650 MG PO EVERY 4 HOURS NEEDED 0 June 11, 2023 12:00am Start: 11-12-2021 End: 05-02-2022 take 2 tablets by mouth every eight hours as needed acetaminophen (TYLENOL) 500 mg tablet Take 2 tablets by mouth every 8 hours as needed for pain. 90 tablet 0 11/12/2021 05/02/2022 Discontinued Start: 11-01-2016 End: 04-14-2020 take 2 tablets by mouth every four hours as needed for pain Acetaminophen 325 MG tablet Discontinued 650 mg PO EVERY 4 HOURS NEEDED as needed for pain/fever November 01, 2016 12:00am April 14, 2020 10:09am Start: 11-01-2016 End: 04-14-2020 take 650 mg by mouth every four hours as needed Acetaminophen Discontinued 650 MG PO EVERY 4 HOURS NEEDED November 01, 2016 12:00am April 14, 2020 10:09am End: 11-12-2021 take 650 mg by mouth every four hours as needed ACETAMINOPHEN (TYLENOL ORAL) Take 650 mg by mouth every 4 hours as needed. 0 11/12/2021 Discontinued Comment on above: Take 2 tablets by mo uth every 8 hours as needed for pain. Take 650 mg by mouth every 4 hours as needed. aspirin 81 mg chewable tablet (20 sources) Platelet Aggregation Inhibitor, Nonsteroidal Anti-inflammatory Drug Start: 01-31-2025 take 2 tablets by mouth once daily Aspirin 81 MG tablet,chewable Active 162 mg PO DAILY January 31, 2025 12:00am resume tomorrow Start: 11-12-2021 End: 12-12-2021 take 1 tablet by mouth twice daily aspirin, enteric coated (ASPIRIN, ENTERIC COATED) 81 mg EC tablet Take 1 tablet by mouth twice daily. 60 tablet 11/12/2021 Active Start: 11-01-2016 End: 01-31-2025 take 1 tablet by mouth once daily Aspirin 81 MG tablet,chewable Discontinued 81 mg PO DAILY@0800 0 0 November 03, 2016 11:46am January 31, 2025 12:50pm resume tomorrow End: 11-12-2021 take 1 tablet by mouth once daily Aspirin 81 mg ORAL Tab Take 81 mg by mouth once daily. 0 11/12/2021 Discontinued Comment on above: Take 1 tablet by chong twice daily. Take 81 mg by mouth once daily. carvedilol 12.5 mg oral tablet (20 sources) alpha-Adrenergic Tanya, beta-Adrenergic Tanya Start: 11-03-2016 End: 07-29-2025 take 1 tablet by mouth twice daily carvedilol (COREG) 12.5 mg tablet Take 1 tablet by mouth two times a day. 180 tablet 3 07/29/2024 07/29/2025 Active Start: 11-01-2016 End: 11-03-2016 take 1 tablet by mouth twice daily Carvedilol 25 MG tablet Discontinued 25 mg PO TWICE A DAY November 01, 2016 12:00am November 03, 2016 11:41am Comment on above: Take 1 tablet by chong th twice daily. Take 1 tablet by chong th two times a day. cholecalciferol 0.05 mg oral tablet (20 sources) Vitamin D Start: 01-31-2025 Cholecalciferol (Vitamin D3) (D3 Dots) 50 mcg (2,000 unit) tablet Active 50 ug PO DAILY January 31, 2025 12:00am Start: 07-29-2024 take 1 capsule by mo [facility] once daily Cholecalciferol, Vitamin D3, 50 mcg (2,000 unit) cap Indications: Vitamin D deficiency Take 1 capsule by mouth once daily. 07/29/2024 Active Start: 12-26-2022 End: 01-31-2025 take 1 capsule by mouth every other day Cholecalciferol (Vitamin D3) 125 mcg (5,000 unit) capsule Discontinued 125 ug PO .QOD December 26, 2022 12:00am January 31, 2025 12:47pm Start: 12-26-2022 take 125 ug by mouth once daily Cholecalciferol (Vitamin D3) Active 125 MCG PO DAILY December 26, 2022 12:00am Start: 05-07-2022 End: 12-26-2022 take 1 tablet by mouth once daily Cholecalciferol (Vitamin D3) 25 mcg (1,000 unit) tablet Discontinued 2000 U PO DAILY May 07, 2022 2:52pm December 26, 2022 2:09pm Start: 2020 End: 07-29-2024 take 1 capsule by mouth every other day Cholecalciferol, Vitamin D3, 125 mcg (5,000 unit) cap Indications: Vitamin D deficiency Take 1 capsule by mouth every other day. May switch to 2000 units daily 2020 07/29/2024 Discontinued Start: 11-01-2016 End: 05-07-2022 take 5 tablets by mouth once daily Cholecalciferol (Vitamin D3) 1,000 UNIT tablet Discontinued 5000 U PO DAILY November 01, 2016 12:00am May 07, 2022 2:53pm Start: 11-01-2016 End: 05-07-2022 take 5000 [IU] by mouth once daily Cholecalciferol (Vitamin D3) Discontinued 5000 UNIT PO DAILY November 01, 2016 12:00am May 07, 2022 2:53pm Comment on above: Take 1 capsule by mo [facility] every other day. May switch to 2000 units daily docusate sodium 100 mg oral capsule (20 sources) Start: 05-13-2024 take 1 capsule by mouth twice daily Docusate Sodium (Colace) 100 mg capsule Active 100 mg PO TWICE A DAY May 13, 2024 1:05pm constipation Start: 01-24-2022 End: 05-13-2024 take 1 capsule by mouth three times daily Docusate Sodium (Colace) 100 mg capsule Discontinued 100 mg PO THREE TIMES A DAY January 24, 2022 12:00am May 13, 2024 1:06pm constipation Start: 01-24-2022 take 1 capsule by mo [facility] twice daily Docusate Sodium (Colace) 100 mg capsule Active 100 MG PO TWICE A DAY January 24, 2022 12:00am Start: 11-12-2021 End: 12-12-2021 take 1 capsule by mouth every twelve hours as needed docusate sodium (COLACE) 100 mg capsule Take 1 capsule by mouth twice daily as needed for constipation. 60 capsule 0 11/12/2021 12/12/2021 Active take 2 capsules by out every eight hours as needed docusate sodium (COLACE) 100 mg capsule Take 200 mg by mouth three times daily as needed for constipation. Active Comment on above: Take 1 capsule by mo ut twice daily as needed for constipation. Take 200 mg by mouth three times daily as needed for constipation. ezetimibe 10 mg oral tablet (20 sources) Dietary Cholesterol Absorption Inhibitor Start: End: take 1 tablet by mouth once daily ezetimibe (ZETIA) 10 mg tablet Indications: Mixed hyperlipidemia Take 1 tablet by mouth once daily. 90 tablet 3 07/29/2024 Active Start: 07-22-2022 End: 10-22-2022 take 1 tablet by mouth once daily ezetimibe (ZETIA) 10 mg tablet Indications: Mixed hyperlipidemia Take 1 tablet by mouth once daily. 90 tablet 3 10/22/2022 Active Start: 07-22-2022 take 1 tablet by chong th once daily ezetimibe (ZETIA) 10 mg tablet Indications: Mixed hyperlipidemia Take 1 tablet by mouth once daily. 90 tablet 3 07/22/2022 Active Start: 07-22-2022 take 1 tablet by chong th once daily ezetimibe (ZETIA) 10 mg tablet Indications: Mixed hyperlipidemia Take 1 tablet by mouth once daily. 90 tablet 3 07/22/2022 Active Start: 07-22-2022 take 1 tablet by chong th once daily ezetimibe (ZETIA) 10 mg tablet Indications: Mixed hyperlipidemia Take 1 tablet by mouth once daily. 90 tablet 3 07/22/2022 Active Start: 07-22-2022 take 1 tablet by chong th once daily ezetimibe (ZETIA) 10 mg tablet Indications: Mixed hyperlipidemia Take 1 tablet by mouth once daily. 90 tablet 3 07/22/2022 Active Start: 07-22-2022 take 1 tablet by chong th once daily ezetimibe (ZETIA) 10 mg tablet Indications: Mixed hyperlipidemia Take 1 tablet by mouth once daily. 90 tablet 3 07/22/2022 Active Start: 07-22-2022 take 1 tablet by chong th once daily ezetimibe (ZETIA) 10 mg tablet Indications: Mixed hyperlipidemia Take 1 tablet by mouth once daily. 90 tablet 3 07/22/2022 Active Start: 06-14-2019 End: 05-02-2022 take 1 tablet by mouth once daily Ezetimibe (Zetia) 10 mg tablet Active 10 mg PO DAILY June 14, 2019 12:00am cholesterol Comment on above: Take 1 tablet by chong th once daily. ferrous sulfate 325 mg oral tablet (6 sources) Start: 11-12-2021 End: 11-18-2021 take 1 tablet by mouth once daily at lunch ferrous sulfate 325 mg (65 mg iron) tablet Take 1 tablet by mouth daily with lunch for 6 doses. 6 tablet 0 11/12/2021 11/18/2021 Active Comment on above: Take 1 tablet by chong th daily with lunch for 6 doses. furosemide 40 mg oral tablet (20 sources) Loop Diuretic Start: 12-26-2022 take 20 mg by mouth once daily Furosemide Active 20 MG PO DAILY December 26, 2022 2:45pm Start: 01-24-2022 End: 12-26-2022 take 1 tablet by mouth once daily Furosemide 40 mg tablet Discontinued 40 mg PO DAILY 90 January 24, 2022 12:00am December 26, 2022 2:46pm Comment on above: Take 40 mg by mouth once daily. 3 ml insulin aspart, human 100 unt/ml pen injector (20 sources) Insulin Analog Start: End: inject 10 [IU] by subcutaneous injection three times daily before mealtime for depression insulin aspart U-100 (NOVOLOG FLEXPEN U-100 INSULIN) 100 unit/mL (3 mL) Indications: Screening for depression , Encounter for screening examination for other mental health and behavioral disorders Inject 10 Units subcutaneously three times a day before meals. As directed when eats meals 5 Each 5 04/08/2024 Active Start: 12-26-2022 Insulin Aspart U-100 100 unit/mL (3 mL) insulin pen Active 1 U SC before meals as needed for SLIDING SCALE December 26, 2022 2:09pm Start: 12-26-2022 Insulin Aspart U-100 Active 5 UNIT SC before meals December 26, 2022 2:09pm Start: 11-07-2022 inject 10 [IU] by barragan bcutaneous injection three times daily before mealtime insulin aspart U-100 (NOVOLOG FLEXPEN U-100 INSULIN) 100 unit/mL (3 mL) Inject 10 Units subcutaneously three times daily before meals. As directed when eats meals 5 Each 5 11/07/2022 Active Start: 06-03-2022 inject 10 [IU] by barragan bcutaneous injection three times daily before mealtime insulin aspart U-100 (NOVOLOG FLEXPEN U-100 INSULIN) 100 unit/mL (3 mL) Inject 10 Units subcutaneously three times daily before meals. As directed when eats meals 5 Each 5 06/03/2022 Active Start: 11-01-2021 End: 06-03-2022 inject 5 [IU] by subcutaneous injection three times daily before mealtime insulin aspart U-100 (NOVOLOG FLEXPEN U-100 INSULIN) 100 unit/mL (3 mL) Inject 5 Units subcutaneously three times daily before meals. As directed when eats meals 5 Pen 5 04/14/2022 06/03/2022 Discontinued Start: 01-29-2021 End: 11-01-2021 inject 6 [IU] by subcutaneous injection three times daily before mealtime insulin aspart U-100 (NOVOLOG FLEXPEN U-100 INSULIN) 100 unit/mL (3 mL) Inject 6 Units subcutaneously three times daily before meals. As directed--only take if eating a meal 3 Pen 5 01/29/2021 11/01/2021 Discontinued Start: 06-14-2019 End: 12-26-2022 Insulin Aspart U-100 100 uni t/mL (3 mL) insulin pen Discontinued 10 U SC TWICE A DAY June 14, 2019 10:47am December 26, 2022 2:11pm Start: 11-01-2016 End: 06-14-2019 Insulin Aspart U-100 100 UNI TS/ML insulin pen Discontinued 10 U SC 3 TIMES DAILY WITH MEALS November 01, 2016 12:00am June 14, 2019 10:48am Start: 11-01-2016 End: 06-14-2019 Insulin Aspart U-100 Discont inued 10 UNITS SC 3 TIMES DAILY WITH MEALS November 01, 2016 12:00am June 14, 2019 10:48am Comment on above: Inject 5 Units subcu taneously three times daily before meals. As directed when eats meals Inject 6 Units subcu taneously three times daily before meals. As directed--only take if eating a meal Inject 10 Units subc utaneously three times daily before meals. As directed when eats meals 3 ml insulin glargine 100 unt/ml pen injector (20 sources) Insulin Analog Start: 05-01-2023 End: 04-30-2024 insulin glargine (LANTUS SOLOSTAR U-100 INSULIN) 100 unit/mL (3 mL) Inject 5 Units subcutaneously daily at bedtime. (Adjust as indicated) Needs 1 pen a month so please fill 3 pens per 3 months. Give 5 pens if not able to split the box 3 Each 3 04/08/2024 Active Start: 11-07-2022 End: 04-30-2024 inject 5 [IU] by subcutaneous injection once daily at bedtime insulin glargine (LANTUS SOLOSTAR U-100 INSULIN) 100 unit/mL (3 mL) Inject 5 Units subcutaneously daily at bedtime. (Adjust as indicated) 5 Each 3 05/01/2023 04/30/2024 Active Start: 01-24-2022 Insulin Glargi ne 100 unit/mL (3 mL) insulin pen Active 8 U SC AT BEDTIME as needed for SLIDING SCALE January 24, 2022 2:04pm Start: 01-24-2022 Insulin Glargi ne Active 8 UNIT SC AT BEDTIME January 24, 2022 2:04pm Start: 11-01-2021 End: 11-01-2022 inject 5 [IU] by subcutaneous injection once daily at bedtime insulin glargine (LANTUS SOLOSTAR U-100 INSULIN) 100 unit/mL (3 mL) Inject 5 Units subcutaneously daily at bedtime. (Adjust as indicated) 5 Pen 3 11/01/2021 11/01/2022 Active Start: 04-23-2021 End: 11-01-2021 inject 8 [IU] by subcutaneous injection once daily at bedtime insulin glargine (LANTUS SOLOSTAR U-100 INSULIN) 100 unit/mL (3 mL) Inject 8 Units subcutaneously daily at bedtime. (Adjust as indicated) 15 mL 11 04/23/2021 11/01/2021 Discontinued Start: 06-14-2019 End: 01-24-2022 Insulin Glargine 100 unit/mL (3 mL) insulin pen Discontinued 15 U SC AT BEDTIME June 14, 2019 10:46am January 24, 2022 2:04pm Start: 11-01-2016 End: 06-14-2019 Insulin Glargine 100 UNITS/M L insulin pen Discontinued 30 U SC AT BEDTIME November 01, 2016 12:00am June 14, 2019 10:48am Start: 11-01-2016 End: 06-14-2019 Insulin Glargine Discontinue d 30 UNITS SC AT BEDTIME November 01, 2016 12:00am June 14, 2019 10:48am Comment on above: Inject 5 Units subcu taneously daily at bedtime. (Adjust as indicated) Inject 8 Units subcu taneously daily at bedtime. (Adjust as indicated) Inject 5 Units subcu taneously daily at bedtime. (Adjust as indicated) Needs 1 pen a month so please fill 3 pens per 3 months. Give 5 pens if not able to split the box 24 hr metFORMIN hydrochloride 500 mg extended release oral tablet (20 sources) Biguanide Start: 05-01-2023 End: 04-08-2024 Metformin 500 mg tablet extended release 24 hr Active 2000 mg PO DAILY January 31, 2025 12:00am Start: 07-22-2022 take 4 tablets by mo uth once daily metFORMIN ER (GLUCOPHAGE XR) 500 mg 24 hr tablet Take 4 tablets by mouth once daily. 360 tablet 3 07/22/2022 Active Start: 07-22-2022 take 4 tablets by mo uth once daily metFORMIN ER (GLUCOPHAGE XR) 500 mg 24 hr tablet Take 4 tablets by mouth once daily. 360 tablet 3 07/22/2022 Active Start: 07-22-2022 take 4 tablets by mo uth once daily metFORMIN ER (GLUCOPHAGE XR) 500 mg 24 hr tablet Take 4 tablets by mouth once daily. 360 tablet 3 07/22/2022 Active Start: 07-22-2022 take 4 tablets by mo uth once daily metFORMIN ER (GLUCOPHAGE XR) 500 mg 24 hr tablet Take 4 tablets by mouth once daily. 360 tablet 3 07/22/2022 Active Start: 07-22-2022 take 4 tablets by mo uth once daily metFORMIN ER (GLUCOPHAGE XR) 500 mg 24 hr tablet Take 4 tablets by mouth once daily. 360 tablet 3 07/22/2022 Active Start: 07-22-2022 take 4 tablets by mo uth once daily metFORMIN ER (GLUCOPHAGE XR) 500 mg 24 hr tablet Take 4 tablets by mouth once daily. 360 tablet 3 07/22/2022 Active Start: 07-22-2022 take 4 tablets by mo uth once daily metFORMIN ER (GLUCOPHAGE XR) 500 mg 24 hr tablet Take 4 tablets by mouth once daily. 360 tablet 3 07/22/2022 Active Start: 07-22-2021 End: 05-02-2022 take 4 tablets by mouth once daily metFORMIN ER (GLUCOPHAGE XR) 500 mg 24 hr tablet Take 4 tablets by mouth once daily. 120 tablet 11 07/22/2021 05/02/2022 Discontinued Start: 06-14-2019 End: 01-31-2025 take 4 tablets by mouth once daily Metformin (Glucophage) 500 mg tablet Discontinued 2000 mg PO DAILY June 14, 2019 12:00am January 31, 2025 12:49pm Comment on above: Take 4 tablets by mo uth once daily. potassium chloride 20 meq extended release oral tablet (20 sources) Start: 01-24-2022 take 20 mEq by mouth once daily Potassium Chloride Active 20 MEQ PO DAILY 90 January 24, 2022 12:00am Comment on above: Take 1 tablet by chong once daily. ramipril 10 mg oral capsule (20 sources) Angiotensin Converting Enzyme Inhibitor Start: 11-01-2016 End: 04-08-2024 take 1 capsule by mouth once daily ramipril (ALTACE) 10 mg capsule Indications: Essential hypertension, benign Take 1 capsule by mouth once daily. 90 capsule 3 04/08/2024 Active Comment on above: Take 1 capsule by mo [facility] once daily. Completed/Discontinued Medications Medication Drug Class(es) Dates Sig (Normalized) Sig (Original) ascorbic acid 500 mg oral tablet (20 sources) Vitamin C Start: 11-12-2021 End: 10-14-2024 take 1 tablet by mouth twice daily at mealtime ascorbic acid, vitamin C, (VITAMIN C) 500 mg tablet Take 1 tablet by mouth twice daily with meals for 26 doses. 26 tablet 11/12/2021 10/14/2024 Discontinued Comment on above: [facility] with meals for 26 doses. cephalexin 500 mg oral capsule (3 sources) Cephalosporin Antibacterial Start: 11-14-2023 End: 01-15-2024 take 1 capsule by mouth every six hours Cephalexin 500 mg capsule Discontinued 500 mg PO EVERY 6 HOURS 40 0 November 14, 2023 12:00am January 15, 2024 11:08am clopidogrel 75 mg oral tablet (20 sources) [id number] Platelet Inhibitor Start: 03-23-2020 End: 10-18-2021 take 1 tablet by mouth once daily Clopidogrel (Plavix) 75 mg tablet Discontinued 75 mg PO DAILY August 03, 2020 3:56pm October 18, 2021 3:37pm Start: 11-01-2016 End: 11-03-2016 Clopidogrel 75 MG tablet Dis continued 37.5 mg PO DAILY November 01, 2016 12:00am November 03, 2016 11:45am Start: 11-01-2016 End: 11-03-2016 take 37.5 mg by mouth once daily Clopidogrel Discontinued 37.5 MG PO DAILY November 01, 2016 12:00am November 03, 2016 11:45am Comment on above: Take 75 mg by mouth once daily. ketoconazole 20 mg/ml topical cream (20 sources) Azole Antifungal Start: 07-14-20 ketoconazole (NIZORAL) 2 % cream Apply 1 application to affected area once daily. 60 g 3 07/14/2016 Active Comment on above: Apply 1 application to affected area once daily. mupirocin 0.02 mg/mg topical ointment (1 source) RNA Synthetase Inhibitor Antibacterial Start: 11-02-19 End: 11-07-19 mupirocin (BACTROBAN) 2 % ointment Indications: Preop testing twice daily for 5 days. Apply 0.5 inch with cotton swab (Q-tip) to each nostril in the morning and evening for 5 days prior to and including day of surgery. 22 g 0 11/01/2021 11/06/2021 Comment on above: twice daily for 5 da ys. Apply 0.5 inch with cotton swab (Q- tip) to each nostril in the morning and evening for 5 days prior to and including day of surgery. ondansetron 4 mg disintegrating oral tablet (20 sources) Serotonin-3 Receptor Antagonist Start: 11-14-19 End: 01-17-20 take 1 tablet by mouth every eight hours as needed ondansetron orally disintegrating (ZOFRAN ODT) 4 mg disintegrating tablet Take 1 tablet by mouth every 8 hours as needed for nausea/vomiting. 10 tablet 0 11/13/2021 01/16/2023 Discontinued Comment on above: Take 1 tablet by chong th every 8 hours as needed for nausea/vomiting. oxyCODONE hydrochloride 5 mg oral tablet (20 sources) Opioid Agonist Start: 06-11-20 End: 06-24-20 take 1 tablet by mouth every four hours as needed for pain Oxycodone 5 mg tablet Discontinued 5 mg PO Q4H as needed for pain 15 5 0 June 11, 2023 June 24, 2023 10:09am Right inguinal hernia Start: 11-12-2021 End: 01-16-2023 take 1 tablet by mouth every six hours as needed oxyCODONE IR (ROXICODONE) 5 mg immediate release tablet Indications: S/P total left hip arthroplasty Take 1-2 tablets by mouth every 6 hours as needed for pain. 30 tablet 0 11/12/2021 01/16/2023 Discontinued Comment on above: Take 1-2 tablets by mouth every 6 hours as needed for pain. phenazopyridine hydrochloride 100 mg oral tablet (7 sources) Start: 02-26-20 End: 06-14-20 19 take 2 tablets by mouth three times daily Phenazopyridine 100 MG tablet Discontinued 200 mg PO THREE TIMES A DAY 14 0 February 25, 2017 12:00am June 14, 2019 10:48am Start: 02-25-2017 End: 06-14-2019 take 200 mg by mouth three times daily Phenazopyridine Discontinued 200 MG PO THREE TIMES A DAY 14 February 25, 2017 12:00am June 14, 2019 10:48am polyethylene glycol 3350 16841 mg powder for oral solution (11 sources) Osmotic Laxative Start: 11-12-2021 End: 11-22-2021 polyethylene glycol 3350 (MIRALAX, GLYCOLAX) 17 gram packet Take 1 Packet by mouth once daily as needed for constipation for up to 10 days. Dissolve dose in 4 - 8 ounces of liquid and take as directed. 10 Packet 0 11/12/2021 11/22/2021 Comment on above: Take 1 Packet by chong once daily as needed for constipation for up to 10 days. Dissolve dose in 4 - 8 ounces of liquid and take as directed. Problems Active Problems Problem Classification Problem Date Documented Date Episodic/Chronic Abdominal hernia (9 sources) Unspecified abdominal hernia without obstruction or gangrene; Translations: [Hernia] 05-22-2023 Episodic Abdominal pain (5 sources) Epigastric pain; Translations: [Epigastric pain] 10-06-2023 Episodic Cancer of prostate (20 sources) Malignant tumor of prostate; Translations: [Malignant neoplasm of prostate] Onset: 5 12-11-2014 Chronic Cardiac dysrhythmias (4 sources) Irregular heart beat; Translations: [Cardiac arrhythmia, unspecified] 10-20-2023 Chronic Chronic kidney disease (20 sources) Chronic kidney disease stage 3A ; Translations: [Stage 3a chronic kidney disease (HCC)] Onset: 3 Resolved: 4 Chronic Conditions associated with dizziness or vertigo (2 sources) Lightheadedness; Translations: [Dizziness and giddiness] 01-31-2025 Episodic Congestive heart failure; nonhypertensive (20 sources) Congestive heart failure; Translations: [Heart failure, unspecified] Onset: 2 12-22-2011 Chronic Coronary atherosclerosis and other heart disease (20 sources) Atherosclerotic heart disease of [place] coronary artery without angina pectoris; Translations: [Coronary arteriosclerosis] Onset: 2 12-22-2011 Chronic Diabetes mellitus with complications (20 sources) Polyneuropathy due to type 2 diabetes mellitus; Translations: [Type 2 diabetes mellitus with diabetic polyneuropathy] Onset: 2 Resolved: 2 Chronic Disorders of lipid metabolism (20 sources) Other hyperlipidemia; Translations: [Mixed hyperlipidemia] Onset: 6 10-15-2015 Chronic Essential hypertension (20 sources) Benign essential hypertension; Translations: [Essential (primary) hypertension] Onset: 6 10-21-2016 Chronic Fluid and electrolyte disorders (1 source) Hypo-osmolality and hyponatremia; Translations: [Hyponatremia] Onset: 5 Episodic Hyperplasia of prostate (20 sources) Benign prostatic hyperplasia; Translations: [Benign prostatic hyperplasia without lower urinary tract symptoms] Onset: 5 12-11-2014 Chronic Immunizations and screening for infectious disease (2 sources) Encounter for immunization; Translations: [Need for vaccination] Onset: 5 Episodic Late effects of cerebrovascular disease (20 sources) Residual cognitive deficit as late effect of cerebrovascular accident; Translations: [Unspecified symptoms and signs involving cognitive functions following cerebral infarction] Onset: 3 09-15-2012 Chronic Leukemias (20 sources) Chronic lymphoid leukemia, disease; Translations: [Chronic lymphocytic leukemia of B-cell type not having achieved remission] Onset: 2 11-20-2011 Chronic Comment on above: 2011 the patient rep orts that his oncologist considers him cured from his CLL. His last white count was 10.23 October 2023. Mycoses (12 sources) Onychomycosis; Translations: [Tinea unguium] Onset: 5 Episodic Nausea and vomiting (4 sources) Nausea and vomiting; Translations: [Nausea with vomiting, unspecified] Onset: 5 10-09-2023 Episodic Nutritional deficiencies (20 sources) Vitamin D deficiency; Translations: [Vitamin D deficiency, unspecified] Onset: 1 05-02-2011 Chronic Occlusion or stenosis of precerebral arteries (9 sources) Right carotid artery stenosis; Translations: [Occlusion and stenosis of right carotid artery] Chronic Osteoarthritis (20 sources) Osteoarthritis of left hip joint; Translations: [Unilateral primary osteoarthritis, left hip] Onset: 2 11-01-2021 Chronic Other aftercare (9 sources) Patient encounter status; Translations: [Other residential (current) drug therapy] Episodic Other connective tissue disease (1 source) History of repair of hip joint; Translations: [Presence of left artificial hip joint] Chronic Other connective tissue disease (2 sources) Swelling of lower limb; Translations: [Other specified soft tissue disorders] Episodic Other connective tissue disease (11 sources) Pain of toe of left foot; Translations: [Pain in left toe(s)] Episodic Other connective tissue disease (11 sources) Pain of toe of right foot; Translations: [Pain in right toe(s)] Episodic Other connective tissue disease (1 source) Pain in left toe(s); Translations: [Pain in toe of left foot] Onset: 5 Episodic Other connective tissue disease (1 source) Pain in right toe(s); Translations: [Pain in toe of right foot] Onset: 5 Episodic Other diseases of veins and lymphatics (5 sources) Vascular insufficiency; Translations: [Venous insufficiency (chronic) (peripheral)] Episodic Other non-traumatic joint disorders (2 sources) Hip pain; Translations: [Pain in left hip] Episodic Other nutritional; endocrine; and metabolic disorders (20 sources) Obese class I; Translations: [Obesity, unspecified] Onset: 3 12-08-2022 Chronic Other nutritional; endocrine; and metabolic disorders (1 source) Obesity caused by energy imbalance; Translations: [Class 1 obesity due to excess calories with body mass index (BMI) of 34.0 to 34.9 in adult, unspecified whether serious comorbidity present] 07-29-2024 Chronic Other nutritional; endocrine; and metabolic disorders (1 source) Other obesity due to excess calories; Translations: [Class 1 obesity due to excess calories with body mass index (BMI) of 34.0 to 34.9 in adult, unspecified whether serious comorbidity present] Onset: 4 Chronic Other nutritional; endocrine; and metabolic disorders (1 source) Body mass index (BMI) 34.0-34.9, adult; Translations: [Class 1 obesity due to excess calories with body mass index (BMI) of 34.0 to 34.9 in adult, unspecified whether serious comorbidity present] Onset: 4 Chronic Other skin disorders (2 sources) Asteatosis cutis; Translations: [Xerosis cutis] Episodic Other skin disorders (2 sources) Excessive sweating; Translations: [Generalized hyperhidrosis] 01-31-2025 Episodic [place]-; endo-; and myocarditis; cardiomyopathy (except that caused by tuberculosis or sexually transmitted disease) (14 sources) Cardiomyopathy; Translations: [Cardiomyopathy, unspecified] Chronic Comment on above: Patient has a histor y of an ischemic cardiomyopathy which recovered after revascularization of the right coronary artery and guideline directed medical therapy last echocardiogram December 2022 showed an EF of 55% with inferior basilar hypokinesis. Peripheral and visceral atherosclerosis (20 sources) Peripheral vascular disease, unspecified; Translations: [Peripheral vascular disease, unspecified] Onset: 4 Chronic Residual codes; unclassified (2 sources) Bilateral lower limb edema; Translations: [Localized edema] Episodic Residual codes; unclassified (7 sources) Edema of lower extremity; Translations: [Localized edema] 01-24-2022 Episodic Residual codes; unclassified (7 sources) Altered mental status; Translations: [Altered mental status, unspecified] 06-14-2019 Episodic Screening and history of mental health and substance abuse codes (2 sources) Encounter for screening for depression; Translations: [Encounter for screening examination for other mental health and behavioral disorders] Onset: 5 Episodic Secondary malignancies (20 sources) Secondary malignant neoplasm of intra-abdominal lymph nodes; Translations: [Secondary and unspecified malignant neoplasm of intra-abdominal lymph nodes] Onset: 5 03-06-2015 Chronic Skin and subcutaneous tissue infections (4 sources) Cellulitis of lower leg; Translations: [Cellulitis of right lower limb] 11-14-2023 Episodic Syncope (8 sources) Syncope; Translations: [Syncope and collapse] Episodic Unclassified (1 source) Unknown / UNK(Unknown) Onset: 7 Unclassified (1 source) Class 1 obesity due to excess calories with body mass index (BMI) of 34.0 to 34.9 in adult, unspecified whether serious comorbidity present; Translations: [Class 1 obesity due to excess calories with body mass index (BMI) of 34.0 to 34.9 in adult, unspecified whether serious comorbidity present] Onset: Past or Other Problems Problem Classification Problem Date Documented Date Episodic/Chronic Acute cerebrovascular disease (20 sources) Cerebrovascular accident; Translations: [Cerebral infarction, unspecified] Onset: 12-22-2011 Resolved: 07-18-2014 Chronic Comment on above: 2011. NO DEFICITS Coronary atherosclerosis and other heart disease (7 sources) Stented coronary artery; Translations: [Presence of coronary angioplasty implant and graft] Onset: 04-17-2020 05-04-2020 Episodic Comment on above: Synergy MR LLUVIA 2.50 x 12 dLCx 05/04/20; Successful PCI with Drug eluting stent and PTCA to the LAD 04/13/20; PTCA/LLUVIA to prox LAD and PTCA/LLUVIA to Prox DX 1 @ [facility] 02/20/2013 Diabetes mellitus without complication (20 sources) Type 2 diabetes mellitus without complication; Translations: [Type 2 diabetes mellitus without complications] Onset: 07-15-2006 Resolved: 12-22-2011 11-01-2021 Chronic Genitourinary symptoms and ill-defined conditions (8 sources) Blood in urine; Translations: [Hematuria, unspecified] Onset: 01-27-2025 04-13-2020 Episodic Other aftercare (1 source) 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; Translations: [Controlled type 2 diabetes mellitus with diabetic neuropathy, with long-term current use of insulin (HCC)] Onset: 11-05-2022 Episodic Other aftercare (1 source) Encounter for therapeutic drug level monitoring; Translations: [Encounter for therapeutic drug monitoring] Onset: 07-12-2024 Episodic Other diseases of veins and lymphatics (1 source) Venous insufficiency (chronic) (peripheral); Translations: [Venous insufficiency] Onset: 03-03-2025 Episodic Other nutritional; endocrine; and metabolic disorders (20 sources) Morbid obesity; Translations: [Morbid (severe) obesity due to excess calories] Onset: 09-30-2017 Resolved: 05-01-2023 01-16-2023 Chronic Other nutritional; endocrine; and metabolic disorders (20 sources) Body mass index 30+ - obesity; Translations: [Obesity, unspecified] Resolved: 04-16-2017 Chronic Other screening for suspected conditions (not mental disorders or infectious disease) (20 sources) Raised prostate specific antigen; Translations: [Elevated prostate specific antigen [PSA]] Onset: 12-27-2014 12-27-2014 Episodic Other skin disorders (20 sources) Sebaceous cyst of skin; Translations: [Sebaceous cyst] Onset: 05-21-2016 05-21-2016 Episodic Pleurisy; pneumothorax; pulmonary collapse (20 sources) Pleural effusion; Translations: [Pleural effusion, not elsewhere classified] Onset: 11-19-2011 Resolved: 12-11-2014 08-12-2021 Episodic Residual codes; unclassified (20 sources) Other specified health status; Translations: [Other drug allergy] Onset: 11-03-2013 11-03-2013 Episodic Residual codes; unclassified (20 sources) Flushing; Translations: [Flushing] Onset: 12-27-2015 12-27-2015 Episodic Residual codes; unclassified (3 sources) Localized edema; Translations: [Edema] Onset: 01-27-2025 Episodic Results Test Name Value Interpretation Reference Range Facility [facility] 06-26-2025 [facility] Telephone (INTMWS) KEDNRICK BARRAZA ([id number]) 1950 M Date Time Provider Department 06/26/25 EVIE GREWAL INTWS During your visit today, we recorded the following information about you: Stephanie Saenz RN 06/26/2025 11:14 AM Signed Patient calls and states that he had spoke with his insurance who had told him that he would qualify for a continues glucose monitoring device. Patient is asking if order can be placed for this? Asking for order to be sent to [facility]. Please review and advise, KEITH Diaz Terri, DANILO.[employer] ATTENDANT 06/26/2025 2:15 PM Signed OK, script sent to pharmacy. Allergies As of Date: 06/26/2025 Noted Allergy Reaction OXYCODONE 11/26/2021 11 - Vomiting CIPROFLOXACIN 03/30/2017 11 - Vomiting Comments: dizziness CRESTOR (ROSUVASTATIN) 07/15/2006 5 - Intolerance Comments: Severe myalgias; could not work because so severe LIPITOR (ATORVASTATIN CALCIUM) 11/20/2011 14 - Other: See Comments Comments: Joint pain PRAVACHOL (PRAVASTATIN SODIUM) 02/09/2012 5 - Intolerance Comments: myalgias STATINS ([id number] REDUCTAS*07/20/2009 5 - Intolerance Comments: Muscle aches; so bad cannot move Date Reviewed: 06/23/2025 Reviewed by: Margot Donahue RN - Fully Assessed Reason for Visit: Orders [681] Primary Visit Diagnosis:Controlled type 2 diabetes mellitus with diabetic neuropathy, with long-term current use of insulin (HCC) [E11.40, Z79.4] Order(s):CONTINUOUS GLUCOSE MONITOR [[id number]] Order #: [id number]. #:[id number] Prescriptions as of 06/26/2025 - Blood-Glucose Meter,Continuous (DEXCOM G7 CARDIOLOGY TECHNOLOGIST) [facility] [place] Use to check blood sugar at least four (4) times daily. - Blood-Glucose Sensor (DEXCOM G7 SENSOR) [place] Apply new sensor every ten (10) days. - carvedilol (COREG) 12.5 mg tablet Take 1 tablet by mouth two times a day. - ezetimibe (ZETIA) 10 mg tablet Take 1 tablet by mouth once daily. - insulin aspart U-100 (NOVOLOG FLEXPEN U-100 INSULIN) 100 unit/mL (3 mL) pen Inject 10 Units subcutaneously three times a day before meals. As directed when eats meals - insulin glargine (LANTUS SOLOSTAR U-100 INSULIN) 100 unit/mL (3 mL) Inject 5 Units subcutaneously daily at bedtime. (Adjust as indicated) Needs 1 pen a month so please fill 3 pens per 3 months. Give 5 pens if not able to split the box - metFORMIN ER (GLUCOPHAGE XR) 500 mg 24 hr tablet Take 4 tablets by mouth once daily. - blood sugar diagnostic ([employer] ULTRA TEST) test strip Test blood sugar(s) 4 times daily. Dx: E11.65, DM. Insulin: Yes (Meals and bedtime--4 injections) - ramipril (ALTACE) 10 mg capsule Take 1 capsule by mouth once daily. - insulin needles, DISPOSABLE, (PEN NEEDLE) 31 gauge x 12/30 Use one needle per dose. 4 per day. - Cholecalciferol, Vitamin D3, 50 mcg (2,000 unit) cap Take 1 capsule by mouth once daily. - docusate sodium (COLACE) 100 mg capsule Take 200 mg by mouth three times daily as needed for constipation. - aspirin, enteric coated (ASPIRIN, ENTERIC COATED) 81 mg EC tablet Take 1 tablet by mouth twice daily. Problem List As Of Date 06/26/2025 Noted Resolved DM w/o complication type II [E11.9] 07/15/2006 12/22/2011 Primary hypertension [I10] 07/15/2006 Mixed hyperlipidemia [E78.2] 07/22/2006 Vitamin D deficiency [E55.9] 05/02/2011 Pleural effusion [J90] 11/19/2011 12/11/2014 CLL (chronic lymphocytic leukemia) [C91.10] 11/20/2011 Controlled type 2 diabetes mellitus with diabet*12/11/2011 CVA (cerebral infarction) (HCC) [I63.9] 12/22/2011 07/18/2014 CHF (congestive heart failure) [I50.9] 12/22/2011 CAD (coronary artery disease) [I25.10] 12/22/2011 CVA, old, cognitive deficits [I69.319] 09/15/2012 Statin intolerance [Z78.9] 11/03/2013 BMI 39.0-39.9,adult [Z68.39] 04/16/2017 Prostate cancer (HCC) [C61] 12/11/2014 BPH (benign prostatic hyperplasia) [N40.0] 12/11/2014 Elevated PSA [R97.20] 12/27/2014 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*03/06/2015 Hot flashes [R23.2] 12/27/2015 Sebaceous cyst [L72.3] 05/21/2016 Morbid obesity (HCC) [E66.01] 09/30/2017 05/01/2023 Uncontrolled type 2 diabetes mellitus with hype*01/19/2019 11/01/2021 Primary osteoarthritis of left hip [M16.12] 11/01/2021 Obesity, Class I, BMI 30-34.9 [E66.811] 12/08/2022 Stage 3a chronic kidney disease (HCC) [N18.31] 01/16/2023 08/20/2023 PAD (peripheral artery disease) ([facility]) [I73.9] 08/20/2023 Encounter Status:Closed by ANNA HERNANDEZ on 06/26/[address] [facility] CNOVon 06-23-2025 CNOV Office Visit (PODIWS ) KENDRICK BARRAZA ([id number]) 1950 M Date Time Provider Department 06/23/25 11:00 AM PAPA GAR PODIWS During your visit today, we recorded the following information about you: Margot Donahue, KEITH 06/24/2025 6:36 AM Signed Patient presents with: Left Foot - Established Patient, Follow Up, Diabetic Foot Care Right Foot - Established Patient, Follow Up, Diabetic Foot Care Patient presents for follow up diabetic foot/nail care LADAN 03/03/25 Papa Gar 06/23/2025 11:13 AM Signed Diabetes Foot Care Instructions When you have diabetes, proper foot care is very important. Poor foot care may lead to amputation of a foot or leg. As a person with diabetes, you are more vulnerable to foot problems, because diabetes can damage your nerves and reduce blood flow to your feet. Here are some diabetes foot care tips to follow: Wash and Dry Your Feet Daily Use mild soaps Use warm water Pat your skin dry; do not rub. Thoroughly dry your feet. After washing, use lotion on your feet to prevent cracking. Do not put lotion between your toes. Examine Your Feet Each Day Check the tops and bottoms of your feet. Have someone else look at your feet if you cannot see them. Check for dry, cracked skin. Look for blisters, cuts, scratches, or other sores. Check for redness, increased warmth, or tenderness when touching any area of your feet. Check for ingrown toenails, corns, and calluses. If you get a blister or sore from your shoes, do not pop it. Apply a bandage and wear a different pair of shoes. Take Care of Your Toenails Cut toenails after bathing, when they are soft. Cut toenails straight across and smooth with a nail file. Avoid cutting into the corners of toes. Do not cut cuticles. If you have neuropathy (or decreased sensation in your feet) a passport support associate should always cut your toenails. Be Careful When Exercising Walk and exercise in comfortable shoes. Do not exercise when you have open sores on your feet. Protect Your Feet With Shoes and Socks Never go barefoot. Always protect your feet by wearing shoes or hard-soled slippers or footwear. Avoid shoes with high heels and pointed toes. Avoid shoes that expose your toes or heels (such as open-toed shoes or sandals). These types of shoes increase your risk for injury and potential infections. Try on new footwear with the type of socks you usually wear. Do not wear new shoes for more than an hour at a time. Change your socks daily. Look and feel inside your shoes before putting them on to make sure there are no foreign objects or rough areas. Avoid tight socks. Wear natural-fiber socks (cotton, wool, or a cotton-wool blend). Wear special shoes if your health care provider recommends them. Wear shoes/boots that will protect your feet from various weather conditions (cold, moisture, etc.). Make sure your shoes fit properly. If you have neuropathy (nerve damage), you may not notice that your shoes are too tight. Perform the footwear test described below. Footwear Test Use this simple test to see if your shoes fit correctly: Stand on a piece of paper. (Make sure you are standing and not sitting, because your foot changes shape when you stand.) Trace the outline of your foot. Trace the outline of your shoe. Compare the tracings: Is the shoe too narrow? Is your foot crammed into the shoe? The shoe should be at least 1/2 inch longer than your longest toe and as wide as your foot. Proper Shoe Choices The following types of shoes are best for people with diabetes Closed toes and heels Leather uppers without a seam inside At least 1/2 inch extra space at the end of your longest toe Inside of shoe should be soft with no rough areas Outer sole should be made of stiff material Shoes should be at least as wide as your feet Tips for Foot Care in Diabetes Don't wait to treat a minor foot problem if you have diabetes. Follow your health care provider's guidelines and first aid guidelines. Report foot injuries and infections to your health care provider immediately. Check water temperature with your elbow, not your foot. Do not use a heating pad on your feet. Do not cross your legs. Do not self-treat your corns, calluses, or other foot problems. Go to your health care provider or passport support associate to treat these conditions. Papa Gar 06/24/2025 6:36 AM Signed Last saw pcp: 06/03/25 Subjective: Patient presents to clinic c/o painful toenails. They state that the nails are especially painful with shoe gear and pressure. Patient states that nails 1-5 b/l are painful. Patient admits to being diabetic. No other pedal complaints at this time. Patient states no change in medications or medical history since last visit. Objective: Patient presents to clinic ambulating in diabetic shoes Vasc: DP and PT pulses are (more content not included)... Normal [facility]2025 [facility] Tele[facility] (INTMWS) KENDRICK BARRAZA ([id number]) 1950 M Date Time Provider Department 06/19/25 EVIE GREWAL INTMWS During your visit today, we recorded the following information about you: Autumn Santiago LPN 06/19/2025 1:37 PM Signed Patient calling he can not get his glucose test strips refilled until PCP completes form for billing that the pharmacy had sent to her office. He said Dante Simeon faxed the form, not sure of the date. He is running out of test strips. Please advise Bay Jarrett, RN 06/21/2025 9:43 AM Signed Pt asked this nurse to call [facility] to find out why he can't get his test strips. Spoke with [facility] who reports they faxed a form to pcp to fill out- required for patient's who test more than twice a day. Will fax form again today. Asking pcp to fill out form [facility] Keiko Baez MA 06/21/2025 10:42 AM Signed Received form and completed just needs pcp signature Placed on nurses desk ASIM Best Liza D, MD 06/21/2025 9:21 PM Signed Signed Belkys Up LPN 06/22/2025 4:26 PM Signed Signed forms faxed to number provided. Patient aware. Belkys Up LPN Allergies As of Date: 06/19/2025 Noted Allergy Reaction OXYCODONE 11/26/2021 11 - Vomiting CIPROFLOXACIN 03/30/2017 11 - Vomiting Comments: dizziness CRESTOR (ROSUVASTATIN) 07/15/2006 5 - Intolerance Comments: Severe myalgias; could not work because so severe LIPITOR (ATORVASTATIN CALCIUM) 11/20/2011 14 - Other: See Comments Comments: Joint pain PRAVACHOL (PRAVASTATIN SODIUM) 02/09/2012 5 - Intolerance Comments: myalgias STATINS ([id number] REDUCTAS*07/20/2009 5 - Intolerance Comments: Muscle aches; so bad cannot move Date Reviewed: 06/03/2025 Reviewed by: Ana Paula Andrews MA - Fully Assessed Reason for Visit: form from pharmacy [Other] Prescriptions as of 06/22/2025 - carvedilol (COREG) 12.5 mg tablet Take 1 tablet by mouth two times a day. - ezetimibe (ZETIA) 10 mg tablet Take 1 tablet by mouth once daily. - insulin aspart U-100 (NOVOLOG FLEXPEN U-100 INSULIN) 100 unit/mL (3 mL) pen Inject 10 Units subcutaneously three times a day before meals. As directed when eats meals - insulin glargine (LANTUS SOLOSTAR U-100 INSULIN) 100 unit/mL (3 mL) Inject 5 Units subcutaneously daily at bedtime. (Adjust as indicated) Needs 1 pen a month so please fill 3 pens per 3 months. Give 5 pens if not able to split the box - metFORMIN ER (GLUCOPHAGE XR) 500 mg 24 hr tablet Take 4 tablets by mouth once daily. - blood sugar diagnostic ([employer] ULTRA TEST) test strip Test blood sugar(s) 4 times daily. Dx: E11.65, DM. Insulin: Yes (Meals and bedtime--4 injections) - ramipril (ALTACE) 10 mg capsule Take 1 capsule by mouth once daily. - insulin needles, DISPOSABLE, (PEN NEEDLE) 31 gauge x 5/16 Use one needle per dose. 4 per day. - Cholecalciferol, Vitamin D3, 50 mcg (2,000 unit) cap Take 1 capsule by mouth once daily. - docusate sodium (COLACE) 100 mg capsule Take 200 mg by mouth three times daily as needed for constipation. - aspirin, enteric coated (ASPIRIN, ENTERIC COATED) 81 mg EC tablet Take 1 tablet by mouth twice daily. Problem List As Of Date 06/19/2025 Noted Resolved DM w/o complication type II [E11.9] 07/15/2006 12/22/2011 Primary hypertension [I10] 07/15/2006 Mixed hyperlipidemia [E78.2] 07/22/2006 Vitamin D deficiency [E55.9] 05/02/2011 Pleural effusion [J90] 11/19/2011 12/11/2014 CLL (chronic lymphocytic leukemia) [C91.10] 11/20/2011 Controlled type 2 diabetes mellitus with diabet*12/11/2011 CVA (cerebral infarction) (HCC) [I63.9] 12/22/2011 07/18/2014 CHF (congestive heart failure) [I50.9] 12/22/2011 CAD (coronary artery disease) [I25.10] 12/22/2011 CVA, old, cognitive deficits [I69.319] 09/15/2012 Statin intolerance [Z78.9] 11/03/2013 BMI 39.0-39.9,adult [Z68.39] 04/16/2017 Prostate cancer (HCC) [C61] 12/11/2014 BPH (benign prostatic hyperplasia) [N40.0] 12/11/2014 Elevated PSA [R97.20] 12/27/2014 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*03/06/2015 Hot flashes [R23.2] 12/27/2015 Sebaceous cyst [L72.3] 05/21/2016 Morbid obesity (HCC) [E66.01] 09/30/2017 05/01/2023 Uncontrolled type 2 diabetes mellitus with hype*01/19/2019 11/01/2021 Primary osteoarthritis of left hip [M16.12] 11/01/2021 Obesity, Class I, BMI 30-34.9 [E66.811] 12/08/2022 Stage 3a chronic kidney disease (HCC) [N18.31] 01/16/2023 08/20/2023 PAD (peripheral artery disease) (HCC) [I73.9] 08/20/2023 Encounter Status:Closed by BELKYS UP on 06/22/25 Normal [facility] ALBUMIN/CREATININE RATIO, UR INEon 05-10-2025 Albumin DL <= 20 mg/L (U) [Mass/Vol] 33.8 mg/L Normal [facility] Comment on above: Order Comment: Speci men Type: BLOOD SPECIMEN Ordering Facility: [facility] Address: [address] [place] [address] Performed By: #### 2 4331-1, 94728-4 #### [facility] CLIA [id number] [address] [place] [id number] [place] [address] [place] Albumin/Creatinine (U) [Mass ratio] 47 mg/g High <30 [facility] Comment on above: Order Comment: Speci men Type: BLOOD SPECIMEN Ordering Facility: [facility] Address: [address] [place] [address] Result Comment: Adul t Male and Female Nephrotic Criteria: <30 mg/g is considered normal to mildly increased 30-300 mg/g is considered moderately increased >300 mg/g is considered severely increased KDIGO. (2013). KDIGO 2012 Clinical Practice Guideline for the Evaluation and Management of Chronic Kidney Disease. Official Journal of the International Society of Nephrology, 3(1), 1-150. Performed By: #### 2 4331-1, 41138-5 #### [facility] CLIA [id number] [address] [place] [address] [place] Creatinine (U) [Mass/Vol] 72.1 mg/dL Normal 20.0-300.0 [facility] Comment on above: Order Comment: Speci men Type: BLOOD SPECIMEN Ordering Facility: [facility] Address: [address] [place] [address] Performed By: #### 2 4331-1, 70884-1 #### [facility] CLIA [id number] [address] [place] [address] [place] Comprehensive metabolic 2000 panelon 05-10-2025 Albumin [Mass/Vol] 4.5 g/dL Normal 3.9-4.9 [facility] Comment on above: Order Comment: Speci men Type: BLOOD SPECIMEN Ordering Facility: [facility] Address: [address] [place], [place] [address] Performed By: #### 2 4331-1, 95005-5 #### [facility] CLIA [id number] [address] [place] [address] [place] ALP [Catalytic activity/Vol] 56 U/L Normal 38-113 [facility] Comment on above: Order Comment: Speci men Type: BLOOD SPECIMEN Ordering Facility: [facility] Address: [address] [place] [address] Performed By: #### 2 4331-1, 71227-6 #### [facility] CLIA [id number] [address] [place], [place] [id number] [place] ALT [Catalytic activity/Vol] 10 U/L Normal 10-54 [facility] Comment on above: Order Comment: Speci men Type: BLOOD SPECIMEN Ordering Facility: [facility] Address: [address] [place], [place] [address] Performed By: #### 2 4331-1, 00744-3 #### [facility] CLIA [id number] [address] [place] [address] [place] Anion gap [Moles/Vol] 12 mmol/L Normal 8-15 [facility] Comment on above: Order Comment: Speci men Type: BLOOD SPECIMEN Ordering Facility: [facility] Address: [address] [place], [place] [address] Performed By: #### 2 4331-1, 10182-1 #### [facility] CLIA [id number] [address] [place] [address] [place] AST [Catalytic activity/Vol] 19 U/L Normal 14-40 [facility] Comment on above: Order Comment: Speci men Type: BLOOD SPECIMEN Ordering Facility: [facility] Address: [address] [place] [address] Performed By: #### 2 4331-1, 39434-1 #### [facility] CLIA [id number] [address] [place] [address] [place] Bilirubin [Mass/Vol] 0.6 mg/dL Normal 0.2-1.3 [facility] Comment on above: Order Comment: Speci men Type: BLOOD SPECIMEN Ordering Facility: [facility] Address: [address] [place], [place] [address] Performed By: #### 2 4331-1, 51103-1 #### [facility] CLIA [id number] [address] [place], [place] [id number] [place] Calcium [Mass/Vol] 9.2 mg/dL Normal 8.5-10.2 [facility] Comment on above: Order Comment: Speci men Type: BLOOD SPECIMEN Ordering Facility: [facility] Address: [address] [place], [place] [address] Performed By: #### 2 4331-1, 73456-8 #### [facility] CLIA [id number] [address] [place] [address] [place] Chloride [Moles/Vol] 98 mmol/L Normal 98-107 [facility] Comment on above: Order Comment: Speci men Type: BLOOD SPECIMEN Ordering Facility: [facility] Address: [address] [place] [address] Performed By: #### 2 4331-1, 07224-9 #### [facility] CLIA [id number] [address] [place] [address] [place] CO2 [Moles/Vol] 22 mmol/L Normal 22-30 [facility] Comment on above: Order Comment: Speci men Type: BLOOD SPECIMEN Ordering Facility: [facility] Address: [address] [place] [address] Performed By: #### 2 4331-1, 68995-8 #### [facility] CLIA [id number] [address] [place] [address] [place] Creatinine [Mass/Vol] 1.20 mg/dL Normal 0.73-1.22 [facility] Comment on above: Order Comment: Speci men Type: BLOOD SPECIMEN Ordering Facility: [facility] Address: [address] [place] [address] Performed By: #### 2 4331-1, 21812-2 #### [facility] CLIA [id number] [address] [place] [address] [place] eGFRcr SerPlBld CKD-EPI 2020 63 mL/min/1.73m??? Normal >=60 [facility] Comment on above: Order Comment: Speci men Type: BLOOD SPECIMEN Ordering Facility: [facility] Address: [address] [place] [address] Result Comment: Summer mated Glomerular Filtration Rate (eGFR) is calculated using the 2020 CKD-EPI creatinine equation. This equation utilizes serum creatinine, sex, and age as parameters. The creatinine assay has traceable calibration to isotope dilution-mass spectrometry. Refer to KDIGO guidelines for clinical interpretation. In patients with unstable renal function, e.g. those with acute kidney injury, the eGFR may not accurately reflect actual GFR. Performed By: #### 2 4331-1, 32370-0 #### [facility] CLIA [id number] [address] [place] [address] [place] Glucose [Mass/Vol] 118 mg/dL High 74-99 [facility] Comment on above: Order Comment: Wilma peña Type: BLOOD SPECIMEN Ordering Facility: [facility] Address: [address] [place] [address] Result Comment: The [place] Diabetes Association (ADA) provides guidance for cutoff values for fasting glucose and random glucose. The ADA defines fasting as no caloric intake for at least 8 hours. Fasting plasma glucose results between 100 to 125 mg/dL indicate increased risk for diabetes (prediabetes). Fasting plasma glucose results greater than or equal to 126 mg/dL meet the criteria for diagnosis of diabetes. In the absence of unequivocal hyperglycemia, results should be confirmed by repeat testing. In a patient with classic symptoms of hyperglycemia or hyperglycemic crisis, random plasma glucose results greater than or equal to 200 mg/dL meet the criteria for diagnosis of diabetes. Reference: Standards of Medical Care in Diabetes 2016, [place] Diabetes Association. Diabetes Care. 2016.39(Suppl 1). Performed By: #### 2 4331-1, 31599-0 #### [facility] CLIA [id number] [address] [place] [address] [place] Potassium [Moles/Vol] 5.0 mmol/L Normal 3.7-5.1 [facility] Comment on above: Order Comment: Wilma peña Type: BLOOD SPECIMEN Ordering Facility: [facility] Address: [address] [place] [address] Performed By: #### 2 4331-1, 51226-8 #### [facility] CLIA [id number] [address] [place] [address] [place] Protein [Mass/Vol] 6.6 g/dL Normal 6.3-8.0 [facility] Comment on above: Order Comment: Wilma peña Type: BLOOD SPECIMEN Ordering Facility: [facility] Address: [address] [place] [address] Performed By: #### 2 4331-1, 35890-0 #### [facility] CLIA [id number] [address] [place] [address] [place] Sodium [Moles/Vol] 132 mmol/L Low 136-144 [facility] Comment on above: Order Comment: Speci men Type: BLOOD SPECIMEN Ordering Facility: [facility] Address: [address] [place] [address] Performed By: #### 2 4331-1, 38711-8 #### [facility] CLIA [id number] [address] [place] [address] [place] Urea nitrogen [Mass/Vol] 20 mg/dL Normal 9-24 [facility] Comment on above: Order Comment: Speci men Type: BLOOD SPECIMEN Ordering Facility: [facility] Address: [address] [place] [address] Performed By: #### 2 4331-1, 45596-2 #### [facility] CLIA [id number] [address] [place] [address] [place] HbA1c (Bld)on 05-10-2025 Average glucose Estimated from glycated hemoglobin (Bld) [Mass/Vol] 114 mg/dL Normal [facility] Comment on above: Order Comment: Speci men Type: BLOOD SPECIMENOrdering Facility: [facility] Address: [address] [place] [address] Result Comment: eAG: (Estimated average glucose) is a calculated value from HgbA1c and is sales representative rural power of the average blood glucose level in the last 2-3 month period. Performed By: #### 5 5454-3 ####[facility] [id number] [place] [address] [place] HbA1c (Bld) [Mass fraction] 5.6 % Normal 4.3-5.6 [facility] Comment on above: Order Comment: Speci men Type: BLOOD SPECIMENOrdering Facility: [facility] Address: [address] [place] [address] Result Comment: [place] Diabetes Association guidelines indicate that patients with HgbA1c in the range 5.7-6.4% are at increased risk for development of diabetes, and intervention by lifestyle modification may be beneficial. HgbA1c greater or equal to 6.5% is considered diagnostic of diabetes. Performed By: #### 5 5454-3 ####[facility] [id number] [place] [id number] [facility] Cardiology Visit Reporton Cardiology Visit Report [facility] [address] [place] [address] OFFICE VISIT Date of Service: 03/17/25 MR#: [id number] Acct: [id number] Name: KENDRICK BARRAZA Rep #: [id number] : 1950 Provider: RADHA Rice Age/Sex: 74/M [place] [facility] Status: Signed HPI HPI History of Present Illness Details: Kendrick Barraza is a 74 year-old white male who presents to the office today for a cardiovascular follow- up visit. Patient has a history of known coronary disease status post percutaneous revascularization April 2020. And history of an ischemic dilated cardiomyopathy EF at 1 point time was in the 45% range. Last echocardiogram January 09, 2023 showed normal LV for size with an EF of 55% there was inferior basilar hypokinesis. He has a history of remote CLL most recent blood count and October 2023 showed a white count of 10.8. He is considered cured by the oncologist he originally presented in 2011. The patient has a history of diabetes mellitus reports that his hemoglobin A1c is 6.1. His lipids are managed through the [facility] services as well as his hypertension. Pt has not had any chest pain/heaviness. He does not have any worsening SOB. He does not have any lightheadedness/dizziness. He does not have any palpitations. He is an a WC and ambulates with a cane. He was in the ER on 01/31. This was for N/V. Intake Vital Signs 01/31/25 11:51 03/17/25 07:12 Height 5 ft 7 in 5 ft 7 in Weight: 215 lb BMI 33.6 BP 138/82 H Blood Pressure Location Lt brachial Position Sitting Respiration 18 Pulse 73 Pulse Source Monitor Pulse Oximetry (%) 97 Intake Visit Reasons: FU REQUEST FROM Portainer Operator Required: No Is patient in pain?: No Allergies atorvastatin (From Lipitor) Allergy (Severe, Verified 03/17/25 10:15) Other pravastatin (From Pravachol) Allergy (Severe, Verified 03/17/25 10:15) Other rosuvastatin (From Crestor) Allergy (Severe, Verified 03/17/25 10:15) Other Scqwxbn-LTQ-GlP Reductase Inhibitor (Oeratvg-Pjt-Hjc Reductase Inhibitor) Allergy (Severe, Verified 03/17/25 10:15) Other ciprofloxacin Adverse Reaction (Severe, Verified 03/17/25 10:15) dizziness, vomiting Medications ???Medication ???Instructions ???Recorded ???Confirmed ???Type carvedilol 12.5 mg tablet 12.5 mg PO BID 11/03/16 03/17/25 R x ezetimibe 10 mg tablet (Zetia) 10 mg PO DAILY cholesterol 9 03/17/25 History ramipril 10 mg capsule 10 mg PO DAILY 06/14/21 03/17/25 H istory insulin glargine 100 unit/mL (3 8 unit subcut QHS PRN SLIDING SCAL E 01/24/22 03/17/25 History mL) subcutaneous pen insulin aspart U-100 100 unit/mL 1 unit subcut QAC PRN SLIDING SCAL E 12/26/22 03/17/25 History (3 mL) subcutaneous pen docusate sodium 100 mg capsule 100 mg PO BID constipation 4 03/17/25 History (Colace) acetaminophen 325 mg tablet 325 mg PO Q4H PRN Pain Or Fever 03/17/25 History aspirin 81 mg chewable tablet 162 mg PO DAILY 01/31/25 03/17/25 History cholecalciferol (vitamin D3) 50 50 mcg PO DAILY 01/31/25 03/17/25 History mcg (2,000 unit) tablet (D3 DOTS) metformin 500 mg tablet,extended 2,000 mg PO DAILY 01/31/25 5 History release 24 hr Ejection fraction %: 55 Have you fallen in the past year?: No [facility] Medical History (Updated 03/17/25 @ 11:01 by Becca GARCIA, PA) Wears glasses Ambulates with cane Insulin dependent diabetes mellitus Prostate disease Arthritis Back pain Dietary restriction Heartburn Non-smoker Leg cramps History of pain when walking History of echocardiogram History of stress test Cardiology follow-up encounter History of heart attack Syncope CVA (cerebral vascular accident) Stenosis of right carotid artery Mixed hyperlipidemia History of pleural effusion Essential hypertension Presence of stent in coronary artery ( 05/04/20) Atherosclerotic heart disease of [place] coronary artery without angina pectoris Blood in the urine Morbid obesity Left pontine stroke DM2 (diabetes mellitus, type 2) Chronic systolic CHF (congestive heart failure) Altered mental status CLL (chronic lymphocytic leukemia) Surgical History S/P inguinal hernia repair History of cardiac catheterization Hx of colonoscopy History of cystoscopy History of left hip replacement ( 10/2021) History of bilateral cataract extraction Presence of coronary angioplasty implant and graft ( 02/20/13) Family History Mother CAD (coronary artery disease) CVA (cerebral vascular accident) Social History household members: spouse Smoking Status: Never smoker al (more content not included)... [facility] ) KENDRICK BARRAZA ([id number]) 1950 M Date Time Provider Department 03/03/25 3:00 PM PAPA GAR During your visit today, we recorded the following information about you: Margot Donahue, RN 03/03/2025 3:21 PM Signed Patient presents with: Left Foot - Established Patient, Follow Up, Diabetic Foot Care Right Foot - Established Patient, Follow Up, Diabetic Foot Care Patient presents for follow up diabetic foot/nail care. LADAN 12/02/24 Papa Gar 03/03/2025 3:21 PM Signed Last saw pcp: 10/14/24 Subjective: Patient presents to clinic c/o painful toenails. They state that the nails are especially painful with shoe gear and pressure. Patient states that nails 1-5 b/l are painful. Patient admits to being diabetic. No other pedal complaints at this time. Patient states no change in medications or medical history since last visit. Objective: Patient presents to clinic ambulating in diabetic shoes Vasc: DP and PT pulses are nonpalpable bilateral. CFT is less than 5 seconds bilateral. Skin temperature is warm to cool proximal to distal bilateral. There is moderate edema or varicosities noted. Neuro: Protective sensation is decreased to the foot and toes when tested with the 5.07 SWM bilateral. Vibratory sensation is absent at the hallux IPJ bilateral. The hallux is downgoing bilateral. Derm: Nails 1-5 b/l are are severely thick, painful, discolored-yellow, thick, crumbly, dystrophic and with subungal debris. Skin is ruborous, cool and hair growth is absent bilateral. There are no hyperkeratosis, ulcerations, scars, verruca or other lesions noted. Drained blister of left anterior leg. No signs of infection. Ortho: Muscle strength is 5/5 for all pedal groups tested. Ankle joint DF is decreased with the knee extended with no pain or crepitus noted. 1st MPJ ROM is decreased bilateral. Assessment: (B35.1) Onychomycosis (primary encounter diagnosis) (M79.675) Pain in toe of left foot (M79.674) Pain in toe of right foot (I73.9) PAD (peripheral artery disease) (E11.42) Diabetic polyneuropathy associated with type 2 diabetes mellitus (HCC) (I87.2) Venous insufficiency Plan: Patient was seen and evaluated. Nails 1-5 bilateral were debrided in length and thickness. Bleed was present to left great toe. Band aide applied. Discussed removal of toenail with chemical matrixectomy. I do feel this could be an option for patient to consider given the severe thickening of his toenails. Would warrant pvr prior. He is not interested in removal. Discussed small blister of left leg due to swelling. No signs of infection and has already drained. Continue with compression stockings. Patient was instructed on the continued importance of diabetic foot care along with proper diet and keeping their blood sugar under control to prevent complications. I stressed the importance of avoiding barefoot walking, wearing good shoes and inspection of feet. Patient is to RTC in 3-4 months. THOMAS Sorensen Matthew 03/03/2025 3:17 PM Addendum Diabetes Foot Care Instructions When you have diabetes, proper foot care is very important. Poor foot care may lead to amputation of a foot or leg. As a person with diabetes, you are more vulnerable to foot problems, because diabetes can damage your nerves and reduce blood flow to your feet. Here are some diabetes foot care tips to follow: Wash and Dry Your Feet Daily Use mild soaps Use warm water Pat your skin dry; do not rub. Thoroughly dry your feet. After washing, use lotion on your feet to prevent cracking. Do not put lotion between your toes. Examine Your Feet Each Day Check the tops and bottoms of your feet. Have someone else look at your feet if you cannot see them. Check for dry, cracked skin. Look for blisters, cuts, scratches, or other sores. Check for redness, increased warmth, or tenderness when touching any area of your feet. Check for ingrown toenails, corns, and calluses. If you get a blister or sore from your shoes, do not pop it. Apply a bandage and wear a different pair of shoes. Take Care of Your Toenails Cut toenails after bathing, when they are soft. Cut toenails straight across and smooth with a nail file. Avoid cutting into the corners of toes. Do not cut cuticles. If you have neuropathy (or decreased sensation in your feet) a passport support associate should always cut your toenails. Be Careful When Exercising Walk and exercise in comfortable shoes. Do not exercise when you have open sores on your feet. Protect Your Feet With Shoes and Socks Never go barefoot. Always protect your feet by wearing shoes or hard-soled slippers or footwear. Avoid shoes with high heels and pointed toes. Avoid shoes that expose your toes or heels (such as open-toed shoes or sandals). These types of shoes increase your risk fo (more content not included)... Normal [facility]DR[facility] ([id number]) 1950 M Date Time Provider Department 02/01/25 EVIE GREWAL INTMWS During your visit today, we recorded the following information about you: Ab Prietoley 02/01/2025 11:34 AM Signed Patient called to report that he was examined at [facility] yesterday for sudden onset of vomiting and sensation of low blood sugar. He states that the ER physicians ran lab work and urinalysis resulting in no actionable findings. Patient declined to schedule hospital follow up visit with PCP at this time due to no remaining symptoms today. Please contact patient if further discussion or appointment is necessary. Evie Grewal MD 02/03/2025 7:18 PM Signed Since symptoms resolved, no need for follow up now Follow up if has recurrence and no explanation found to address on his own. Allergies As of Date: 02/01/2025 Noted Allergy Reaction OXYCODONE 11/26/2021 11 - Vomiting CIPROFLOXACIN 03/30/2017 11 - Vomiting Comments: dizziness CRESTOR (ROSUVASTATIN) 07/15/2006 5 - Intolerance Comments: Severe myalgias; could not work because so severe LIPITOR (ATORVASTATIN CALCIUM) 11/20/2011 14 - Other: See Comments Comments: Joint pain PRAVACHOL (PRAVASTATIN SODIUM) 02/09/2012 5 - Intolerance Comments: myalgias STATINS (RALGAUR-YBA-LRE REDUCTAS*07/20/2009 5 - Intolerance Comments: Muscle aches; so bad cannot move Date Reviewed: 01/27/2025 Reviewed by: Leanne Terry LPN - Fully Assessed Reason for Visit: Patient Update [1234] Cmt: 01/31/25 [facility] ER Prescriptions as of 02/06/2025 - insulin needles, DISPOSABLE, (PEN NEEDLE) 31 gauge x 12/30 Use one needle per dose. 4 per day. - blood sugar diagnostic (Advanced Surgical ConceptsTOUCH ULTRA TEST) test strip Test blood sugar(s) 4 times daily. Dx: E11.65, DM. Insulin: Yes (Meals and bedtime--4 injections) - carvedilol (COREG) 12.5 mg tablet Take 1 tablet by mouth two times a day. - ezetimibe (ZETIA) 10 mg tablet Take 1 tablet by mouth once daily. - Cholecalciferol, Vitamin D3, 50 mcg (2,000 unit) cap Take 1 capsule by mouth once daily. - insulin aspart U-100 (NOVOLOG FLEXPEN U-100 INSULIN) 100 unit/mL (3 mL) Inject 10 Units subcutaneously three times a day before meals. As directed when eats meals - insulin glargine (LANTUS SOLOSTAR U-100 INSULIN) 100 unit/mL (3 mL) Inject 5 Units subcutaneously daily at bedtime. (Adjust as indicated) Needs 1 pen a month so please fill 3 pens per 3 months. Give 5 pens if not able to split the box - metFORMIN ER (GLUCOPHAGE XR) 500 mg 24 hr tablet Take 4 tablets by mouth once daily. - ramipril (ALTACE) 10 mg capsule Take 1 capsule by mouth once daily. - docusate sodium (COLACE) 100 mg capsule Take 200 mg by mouth three times daily as needed for constipation. - aspirin, enteric coated (ASPIRIN, ENTERIC COATED) 81 mg EC tablet Take 1 tablet by mouth twice daily. Problem List As Of Date 02/01/2025 Noted Resolved DM w/o complication type II [E11.9] 07/15/2006 12/22/2011 Primary hypertension [I10] 07/15/2006 Mixed hyperlipidemia [E78.2] 07/22/2006 Vitamin D deficiency [E55.9] 05/02/2011 Pleural effusion [J90] 11/19/2011 12/11/2014 CLL (chronic lymphocytic leukemia) [C91.10] 11/20/2011 Controlled type 2 diabetes mellitus with diabet*12/11/2011 CVA (cerebral infarction) (HCC) [I63.9] 12/22/2011 07/18/2014 CHF (congestive heart failure) [I50.9] 12/22/2011 CAD (coronary artery disease) [I25.10] 12/22/2011 CVA, old, cognitive deficits [I69.319] 09/15/2012 Statin intolerance [Z78.9] 11/03/2013 BMI 39.0-39.9,adult [Z68.39] 04/16/2017 Prostate cancer (HCC) [C61] 12/11/2014 BPH (benign prostatic hyperplasia) [N40.0] 12/11/2014 Elevated PSA [R97.20] 12/27/2014 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*03/06/2015 Hot flashes [R23.2] 12/27/2015 Sebaceous cyst [L72.3] 05/21/2016 Morbid obesity (HCC) [E66.01] 09/30/2017 05/01/2023 Uncontrolled type 2 diabetes mellitus with hype*01/19/2019 11/01/2021 Primary osteoarthritis of left hip [M16.12] 11/01/2021 Obesity, Class I, BMI 30-34.9 [E66.811] 12/08/2022 Stage 3a chronic kidney disease (HCC) [N18.31] 01/16/2023 08/20/2023 PAD (peripheral artery disease) (HCC) [I73.9] 08/20/2023 Encounter Status:Closed by JAZMIN KIMBROUGH on 02/06/[address] [facility] 12 Lead EKGon 01-31-2025 12 Lead EKG [facility] [address] [place] [address] 12 Lead EKG 01/31/25 1235 MR#: [id number] Acct: [id number] Name: KENDRICK BARRAZA Rep #: [id number] : 1950 74 From: Kentrell Chery MD Attending Dr: Status: DEP ER Ordering Dr: Gustabo Florian MD Date: 01/31/25 Location: ED Sex: M C Admitted: Test Reason : GENERAL Blood Pressure : */* mmHG Vent. Rate : 69 BPM Atrial Rate : 69 BPM P-R Int : 206 ms QRS Dur : 142 ms QT Int : 410 ms P-R-T Axes : 53 -56 6 degrees QTcB Int : 439 ms Normal sinus rhythm Left axis deviation Right bundle branch block Abnormal ECG Confirmed by KENTRELL CHERY MD ([id number]), web editor LEIGH ANN MARTINEZ ([id number]) on 02/01/2025 8:24:01 AM Referred By: Confirmed By: KENTRELL CHERY MD 02/01/25 0824 Date Kentrell Chery MD CC: Dr. Gustabo Florian MD; Dr. Evie Grewal MD Signed Normal [facility] Absolute lymphocyte countOrd ered By: Gustabo Florian on 01-31-2025 Lymphocytes Auto (Unsp spec) [#/Vol] 1.95 10*3/uL 0.83-4.51 [facility] Absolute neutrophil countOrd ered By: Gustabo Florian on 01-31-2025 Neutrophils (Bld) [#/Vol] 3.7 10*3/uL 2.0-7.7 [facility] Acute Abdomen Inc Cheston Acute Abdomen Inc Chest [facility] Imaging Services [address] [place] [address] [id number] Acute Abdomen Inc Chest MR#: [id number] Acct: [id number] Name: KENDRICK BARRAZA Rep #: [id number] : 1950 M 74 From: Kaz sotelo MD PCP: Dr. Evie Grewal MD Status: REG ER Study: Acute Abdomen Inc Chest Date of Exam: 01/31/25 Exam# [id number] Ordering Dr: Gustabo Florian MD PROCEDURE: ACUTE ABDOMEN INC CHEST 01/31/2025 REASON FOR EXAM: NAUSEA AND VOMITING TECHNIQUE: ACUTE ABDOMEN INC CHEST COMPARISON: None FINDINGS: Hardware: EKG electrodes are seen. Heart: The heart size is normal. Lungs: Lungs are clear. Bowel gas: Large amount of fecal material is seen in the colon. Calcified splenic artery. Free air: No free air. Calcifications: No suspicious calcifications. Bones: There are degenerative changes of the spine. Status post left hip replacement. Other: Calcification of the vas deferens. This is seen in patient with diabetes. RAD/Acute Abdomen Inc Chest IMPRESSION: Large amount of fecal material is seen in the colon. Reading Location: [place] [address] CC: Dr. Gustabo Florian MD; Dr. Evie Grewal MD Appliances Sample Maker: Signed Normal [facility] Anion gap in Serum or Plasma Ordered By: Gustabo Florian on 01-31-2025 Anion gap [Moles/Vol] 11 mmol/L 5- [facility] Automated lymphocyte count a s percentage of total leukocytesOrdered By: Gustabo Florian on 01-31-2025 Lymphocytes/100 WBC Auto (Unsp spec) 30.4 % 19- [facility] BUN/creatinine ratioOrdered By: Gustabo Florian on 01-31-2025 Urea nitrogen/Creatinine [Mass ratio] 18.3 mg/mg 10- [facility] Basophil percentageOrdered B y: Gustabo Florian on 01-31-2025 Basophils/100 WBC (Bld) 0.9 % 0-1 [facility] Bilirubin Test strip Ql (U)O rdered By: Gustabo Florian on 01-31-2025 Bilirubin Ql (U) Negative Negative [facility] Bilirubin, totalOrdered By: Gustabo Florian on 01-31-2025 Bilirubin [Mass/Vol] 0.69 mg/dL 0.00-1.30 [facility] CBC W/Diff, Automatedon 01-15 Absolute Lymph 1.95 X10 3/uL Normal 0.83-4.51 [facility] Comment on above: Performed By: #### L 100.0100, L501.2450, L500.4050 #### [facility] [address] [place], [place], [address] Absolute Neut 3.7 X10 3/uL Normal 2.0-7.7 [facility] Comment on above: Performed By: #### L 100.0100, L501.2450, L500.4050 #### [facility] [address] [place], [address] Basophils/100 WBC (Bld) 0.9 % Normal 0-1 [facility] Comment on above: Performed By: #### L 100.0100, L501.2450, L500.4050 #### [facility] [address] [place], [address] Eosinophils/100 WBC (Bld) 3.0 % Normal 0-5 [facility] Comment on above: Performed By: #### L 100.0100, L501.2450, L500.4050 #### [facility] [address] [place], [address] Erythrocyte distribution width (RBC) [Ratio] 13.9 % Normal 11.6-14.6 [facility] Comment on above: Performed By: #### L 100.0100, L501.2450, L500.4050 #### [facility] [address] [place], [address] Hematocrit (Bld) [Volume fraction] 46.3 % Normal 40-54 [facility] Comment on above: Performed By: #### L 100.0100, L501.2450, L500.4050 #### [facility] [address] [place], [address] Hemoglobin (Bld) [Mass/Vol] 15.6 g/dL Normal 13.0-16.5 [facility] Comment on above: Performed By: #### L 100.0100, L501.2450, L500.4050 #### [facility] [address] [place], [address] IG% 1.200 High 0.0-0.9 [facility] Comment on above: Result Comment: IG% - Immature Granulocytes (promyelocytes, myelocytes and metamyelocytes) > 1% indicates that a LEFT SHIFT is Present. Performed By: #### L 100.0100, L501.2450, L500.4050 #### [facility] [address] [place], [address] Lymphocytes/100 WBC (Bld) 30.4 % Normal 19-41 [facility] Comment on above: Performed By: #### L 100.0100, L501.2450, L500.4050 #### [facility] [address] [place], [address] MCH (RBC) [Entitic mass] 29.3 pg Normal 27.0-32.0 [facility] Comment on above: Performed By: #### L 100.0100, L501.2450, L500.4050 #### [facility] [address] [place], [address] MCHC (RBC) [Mass/Vol] 33.7 g/dL Normal 32-36 [facility] Comment on above: Performed By: #### L 100.0100, L501.2450, L500.4050 #### [facility] [address] [place], [address] MCV (RBC) [Entitic vol] 87.0 fL Normal 80-94 [facility] Comment on above: Performed By: #### L 100.0100, L501.2450, L500.4050 #### [facility] [address] [place], [address] Monocytes/100 WBC (Bld) 7.2 % Normal 0-10 [facility] Comment on above: Performed By: #### L 100.0100, L501.2450, L500.4050 #### [facility] [address] [place], [address] Neutrophils/100 WBC (Bld) 57.3 % Normal 47-70 [facility] Comment on above: Performed By: #### L 100.0100, L501.2450, L500.4050 #### [facility] [address] [place], [address] Nucleated RBC (Bld) [#/Vol] 0 10*3/uL Normal 0-5 [facility] Comment on above: Performed By: #### L 100.0100, L501.2450, L500.4050 #### [facility] [address] [place], [address] Platelet mean volume (Bld) [Entitic vol] 9.1 fL Normal 6.2-12.0 [facility] Comment on above: Performed By: #### L 100.0100, L501.2450, L500.4050 #### [facility] [address] [place], [address] Platelets (Bld) [#/Vol] 207 10*3/uL Normal 150-450 [facility] Comment on above: Performed By: #### L 100.0100, L501.2450, L500.4050 #### [facility] [address] [place], [address] RBC (Bld) [#/Vol] 5.32 10*6/uL Normal 4.6-6.2 [facility] Comment on above: Performed By: #### L 100.0100, L501.2450, L500.4050 #### [facility] [address] [place], [address] RDW SD 44.5 fl High 35.1-43.9 [facility] Comment on above: Performed By: #### L 100.0100, L501.2450, L500.4050 #### [facility] [address] [place], [address] WBC (Bld) [#/Vol] 6.4 10*3/uL Normal 4.4-11.0 [facility] Comment on above: Performed By: #### L 100.0100, L501.2450, L500.4050 #### [facility] [address] [place], [address] Carbon dioxide, total [Moles /volume] in Central venous bloodOrdered By: Gustabo Florian on 01-31-2025 CO2 [Moles/Vol] 24.4 mmol/L 21.0-32.0 [facility] Chloride assayOrdered By: Efrain Florian on 01-31-2025 Chloride [Moles/Vol] 98 mmol/L 98-108 [facility] Comprehensive Metabolic Prof ilon 01-31-2025 Albumin [Mass/Vol] 4.4 g/dL Normal 3.4-4.8 [facility] Comment on above: Performed By: #### L 100.0100, L501.2450, L500.4050 #### [facility] [address] [place], [address] Albumin/Globulin [Mass ratio] 2.3 {ratio} Normal 0.9-2.4 [facility] Comment on above: Performed By: #### L 100.0100, L501.2450, L500.4050 #### [facility] [address] [place], [address] ALK PHOS 50 U/L Normal 40-129 [facility] Comment on above: Performed By: #### L 100.0100, L501.2450, L500.4050 #### [facility] [address] [place], [address] ALT [Catalytic activity/Vol] 10 U/L Normal <=46 [facility] Comment on above: Performed By: #### L 100.0100, L501.2450, L500.4050 #### [facility] [address] [place], [address] AST [Catalytic activity/Vol] 19 U/L Normal <=37 [facility] Comment on above: Performed By: #### L 100.0100, L501.2450, L500.4050 #### [facility] [address] [place], [address] Bilirubin [Mass/Vol] 0.69 mg/dL Normal 0.00-1.30 [facility] Comment on above: Performed By: #### L 100.0100, L501.2450, L500.4050 #### [facility] [address] [place], [address] BUN/CRE 18.3 RATIO Normal 10-20 [facility] Comment on above: Performed By: #### L 100.0100, L501.2450, L500.4050 #### [facility] [address] [place], [address] Calcium [Mass/Vol] 9.4 mg/dL Normal 7.6-11.0 [facility] Comment on above: Performed By: #### L 100.0100, L501.2450, L500.4050 #### [facility] [address] [place], [address] Chloride [Moles/Vol] 98 mmol/L Normal 98-108 [facility] Comment on above: Performed By: #### L 100.0100, L501.2450, L500.4050 #### [facility] [address] [place], [address] CO2 [Moles/Vol] 24.4 mmol/L Normal 21.0-32.0 [facility] Comment on above: Performed By: #### L 100.0100, L501.2450, L500.4050 #### [facility] [address] [place], [address] Creatinine [Mass/Vol] 1.21 mg/dL High 0.70-1.20 [facility] Comment on above: Performed By: #### L 100.0100, L501.2450, L500.4050 #### [facility] [address] [place], [address] ECRCL 58.94 ml/min Normal 50-250 [facility] Comment on above: Performed By: #### L 100.0100, L501.2450, L500.4050 #### [facility] [address] [place], [address] GAP 11 Normal 5-15 [facility] Comment on above: Performed By: #### L 100.0100, L501.2450, L500.4050 #### [facility] [address] [place], [address] GFR/1.73 sq M.predicted among non-blacks MDRD (S/P/Bld) [Vol rate/Area] 62 mL/min/{1.73_m2} Normal >60 [facility] Comment on above: Result Comment: mL/m in/1.73m2 CKD-EPI Creatinine Equation (2020) Performed By: #### L 100.0100, L501.2450, L500.4050 #### [facility] [address] [place], [address] Globulin (S) [Mass/Vol] 1.9 g/dL Low 2.2-4.2 [facility] Comment on above: Performed By: #### L 100.0100, L501.2450, L500.4050 #### [facility] [address] [place], [address] Glucose [Mass/Vol] 94 mg/dL Normal 70-99 [facility] Comment on above: Performed By: #### L 100.0100, L501.2450, L500.4050 #### [facility] [address] [place], [address] Potassium [Moles/Vol] 4.9 mmol/L Normal 3.3-5.1 [facility] Comment on above: Performed By: #### L 100.0100, L501.2450, L500.4050 #### [facility] [address] [place], [address] Sodium [Moles/Vol] 133 mmol/L Normal 133-145 [facility] Comment on above: Performed By: #### L 100.0100, L501.2450, L500.4050 #### [facility] [address] [place], [address] T PROT 6.3 g/dL Normal 5.9-8.4 [facility] Comment on above: Performed By: #### L 100.0100, L501.2450, L500.4050 #### [facility] [address] [place], [address] Urea nitrogen [Mass/Vol] 22 mg/dL High 4-19 [facility] Comment on above: Performed By: #### L 100.0100, L501.2450, L500.4050 #### [facility] [address] [place], [address] Emergency Department Summary on 01-31-2025 Emergency Department Summary [facility] Medical Records Department [address] [place] [address] Emergency Department Summary 01/31/25 MR#: [id number] Acct: [id number] Name: KENDRICK BARRAZA Rep #: [id number] : 1950 74 From: Gustabo Florian MD PCP: Dr. Evie Grewal MD Status:REG ER Location: ED HPI History of Present Illness Chief Complaint: General Illness Narrative Narrative: 74-year-old male past medical history of diabetes, on sliding scale insulin and Lantus at night, presents with nausea and vomiting, 2 episodes today after eating breakfast. He denies any pain, no abdominal pain, no fevers or chills. EMS reports that his called because of the nausea and vomiting and he was diaphoretic. He states that while he was in the ambulance riding backwards he felt lightheaded and slightly nauseated, but his symptoms have resolved. He denies any pain anywhere. No chest pain or abdominal pain, no diarrhea. He states he feels well, and he is not quite sure why his took it upon herself to call EMS. He denies any blood in his emesis, no exacerbating or alleviating factors, but he feels back to his baseline and normal currently. [facility] Medical History Wears glasses Ambulates with cane Insulin dependent diabetes mellitus Prostate disease Arthritis Back pain Dietary restriction Heartburn Non-smoker Leg cramps History of pain when walking History of echocardiogram History of stress test Cardiology follow-up encounter History of heart attack Syncope CVA (cerebral vascular accident) Stenosis of right carotid artery Mixed hyperlipidemia History of pleural effusion Essential hypertension Presence of stent in coronary artery ( 05/04/20) Atherosclerotic heart disease of [place] coronary artery without angina pectoris Blood in the urine Morbid obesity Left pontine stroke DM2 (diabetes mellitus, type 2) Chronic systolic CHF (congestive heart failure) Altered mental status CLL (chronic lymphocytic leukemia) Home Medications ???Medication ???Instructions ???Recorded ???Last Taken ???Type carvedilol 12.5 mg tablet 12.5 mg PO BID 11/03/16 01/31/25 R x ezetimibe 10 mg tablet (Zetia) 10 mg PO DAILY cholesterol 9 01/31/25 History ramipril 10 mg capsule 10 mg PO DAILY 06/14/21 01/31/25 H istory insulin glargine 100 unit/mL (3 8 unit subcut QHS PRN SLIDING SCAL E 01/24/22 Unknown History mL) subcutaneous pen insulin aspart U-100 100 unit/mL 1 unit subcut QAC PRN SLIDING SCAL E 12/26/22 01/31/25 History (3 mL) subcutaneous pen docusate sodium 100 mg capsule 100 mg PO BID constipation 4 01/31/25 History (Colace) acetaminophen 325 mg tablet 325 mg PO Q4H PRN Pain Or Fever Unknown History aspirin 81 mg chewable tablet 162 mg PO DAILY 01/31/25 01/31/25 History cholecalciferol (vitamin D3) 50 50 mcg PO DAILY 01/31/25 01/31/25 History mcg (2,000 unit) tablet (D3 DOTS) metformin 500 mg tablet,extended 2,000 mg PO DAILY 01/31/25 5 History release 24 hr Allergy/AdvReac Type Severity Reaction Status Date / Time atorvastatin (From Lipitor) Allergy Severe Other Verified 01/31/25 11:52 pravastatin (From Pravachol) Allergy Severe Other Verified 01/31/25 11:52 rosuvastatin (From Crestor) Allergy Severe Other Verified 01/31/25 11:52 Dvuhtgr-QHK-DdD Reductase Allergy Severe Other Verified 01/31/25 11:52 Inhibitor (Zknlazj-Lsk-Cuk Reductase Inhibitor) ciprofloxacin AdvReac Severe dizziness, Verified 01/31/25 11:52 vomiting Family History Mother CAD (coronary artery disease) CVA (cerebral vascular accident) Surgical History S/P inguinal hernia repair History of cardiac catheterization Hx of colonoscopy History of cystoscopy History of left hip replacement ( 10/2021) History of bilateral cataract extraction Presence of coronary angioplasty implant and graft ( 02/20/13) Social History household members: spouse Smoking Status: Never smoker alcohol intake: never substance use type: does not use caffeine: No ROS ROS ED ROS Narrative Review of systems positive for nausea and vomiting twice today after breakfast. No abdominal pain, no problems with bowel movements, no dysuria or hematuria, no fevers or chills, no chest pain. Symptoms resolved. EXAM Physical Exam Narrative Exam Narrative: Afebrile. Vital signs noted. Nontoxic-appearing. Cardiovascular examination reveals regular rate and rhythm. Lungs are clear to auscultation bilaterally. The abdomen is soft, nontender, without guarding or rebound. Positive bowel sounds. Nonsurgical abdomen. Neurological examination nonf (more content not included)... Normal [facility] Eosinophil percentageOrdered By: Gustabo Florian on 01-31-2025 Eosinophils/100 WBC (Bld) 3.0 % 0-5 [facility] Erythrocyte distribution wid th ratioOrdered By: Gustabo Florian on 01-31-2025 Erythrocyte distribution width (RBC) [Ratio] 13.9 % 11.6-14.6 [facility] Erythrocyte distribution wid th standard deviationOrdered By: Gustabo Florian on 01-31-2025 Erythrocyte distribution width (RBC) [Ratio] 44.5 fl High 35.1-43.9 [facility] Glomerular filtration rate ( GFR) estimation/1.73 sq m using serum, plasma, or whole bOrdered By: Gustabo Florian on 01-31-2025 GFR/1.73 sq M.predicted among non-blacks MDRD (S/P/Bld) [Vol rate/Area] 62 mL/min/{1.73_m2} >60 [facility] Comment on above: mL/min/1.73m2 CKD-EP I Creatinine Equation (2020) Hematocrit Auto (Bld) [Volum e fraction]Ordered By: Gustabo Florian on 01-31-2025 Hematocrit (Bld) [Volume fraction] 46.3 % 40-54 [facility] Hemoglobin measurementOrdere d By: Gustabo Florian on 01-31-2025 Hemoglobin (Bld) [Mass/Vol] 15.6 g/dL 13.0-16.5 [facility] Immature granulocytes/100 WB C Auto (Bld)Ordered By: Gustabo Florian on 01-31-2025 Immature granulocytes/100 WBC (Bld) 1.200 % High 0.0-0.9 [facility] Comment on above: IG% - Immature Granu locytes (promyelocytes, myelocytes and metamyelocytes) > 1% indicates that a LEFT SHIFT is Present. Ketones Test strip Ql (U)Ord ered By: Gustabo Florian on 01-31-2025 Ketones Ql (U) Negative Negative [facility] - Chemistry and C hemistry - challengeOrdered By: Gustabo Florian on 01-31-2025 AST [Catalytic activity/Vol] 19 U/L <38 [facility] Lipaseon 01-31-2025 Lipase [Catalytic activity/Vol] 55 U/L Normal 13-75 [facility] Comment on above: Result Comment: Fariba adan note: LIPASE revised reference range effective 22. New Lipase methodology. Expected to produce lower values than the previous assay method. NEW Reference Range: 13 - 75 U/L Performed By: #### L 100.0100, L501.2450, L500.4050 #### [facility] [address] [place], [address] Lipase measurementOrdered By : Gustabo Florian on 01-31-2025 Lipase [Catalytic activity/Vol] 55 U/L 13-75 [facility] Comment on above: Please note:LIPASE r evised reference range effective 22. New Lipase methodology. Expected to produce lower values than the previous assay method. NEW Reference Range: 13 - 75 U/L MCV (mean corpuscular volume ) determinationOrdered By: Gustabo Florian on 01-31-2025 MCV (RBC) [Entitic vol] 87.0 fL 80-94 [facility] Mean corpuscular hemoglobin (MCH) determinationOrdered By: Gustabo Florian on 01-31-2025 MCH (RBC) [Entitic mass] 29.3 pg 27.0-32.0 [facility] Mean corpuscular hemoglobin concentration (MCHC) determinationOrdered By: Gustabo Florian on 01-31-2025 MCHC (RBC) [Mass/Vol] 33.7 g/dL 32-36 [facility] Mean platelet volume determi nationOrdered By: Gustabo Florian on 01-31-2025 Platelet mean volume (Bld) [Entitic vol] 9.1 fL 6.2-12.0 [facility] Microscopic analysis of urin e for red blood cells (RBC)Ordered By: Gustabo Florian on 01-31-2025 Microscopic analysis of urine for red blood cells (RBC) 0-5 SEEN /hpf 0-5 [facility] Monocyte percentageOrdered B y: Gustabo Florian on 01-31-2025 Monocytes/100 WBC (Bld) 7.2 % 0-10 [facility] Mucus LM Ql (Urine sed)Order ed By: Gustabo Florian on 01-31-2025 Mucus Ql (Urine sed) 0 SEEN /hpf [facility] Neutrophil percentageOrdered By: Gustabo Florian on 01-31-2025 Neutrophils/100 WBC (Bld) 57.3 % 47-70 [facility] Nitrite Test strip Ql (U)Ord ered By: Gustabo Florian on 01-31-2025 Nitrite Ql (U) Negative Negative [facility] Nucleated red blood cell per centageOrdered By: Gustabo Florian on 01-31-2025 Nucleated RBC/100 WBC (Bld) [Ratio] 0 % 0-5 [facility] Platelet countOrdered By: Efrain Florian on 01-31-2025 Platelets (Bld) [#/Vol] 207 10*3/uL 150-450 [facility] Potassium measurement (mass/ volume)Ordered By: Gustabo Florian on 01-31-2025 Potassium (Unsp spec) [Mass/Vol] 4.9 mmol/L 3.3-5.1 [facility] Protein Test strip Ql (U)Ord ered By: Gustabo Florian on 01-31-2025 Protein Ql (U) 15 mg/dl High Negative [facility] RBC Auto (Bld) [#/Vol]Ordere d By: Gustabo Florian on 01-31-2025 RBC (Bld) [#/Vol] 5.32 10*6/uL 4.6-6.2 [facility] Serum creatinine measurement (mass/volume)Ordered By: Gustabo Florian on 01-31-2025 Creatinine [Mass/Vol] 1.21 mg/dL High 0.70-1.20 [facility] Serum globulin measurementOr dered By: Gustabo Florian on 01-31-2025 Globulin (S) [Mass/Vol] 1.9 g/dL Low 2.2-4.2 [facility] Serum glucose measurement (m ass/volume)Ordered By: Gustabo Florian on 01-31-2025 Glucose [Mass/Vol] 94 mg/dL 70-99 [facility] Serum or plasma alanine waters otransferase (ALT) measurementOrdered By: Gustabo Florian on 01-31-2025 ALT [Catalytic activity/Vol] 10 U/L <47 [facility] Serum or plasma albumin lázaro urement (mass/volume)Ordered By: Gustabo Florian on 01-31-2025 Albumin [Mass/Vol] 4.4 g/dL 3.4-4.8 [facility] Serum or plasma albumin/glob ulin mass ratioOrdered By: Gustabo Florian on 01-31-2025 Albumin/Globulin [Mass ratio] 2.3 {ratio} 0.9-2.4 [facility] Serum or plasma alkaline dani sphatase measurementOrdered By: Gustabo Florian on 01-31-2025 ALP [Catalytic activity/Vol] 50 U/L 40-129 [facility] Serum or plasma calcium lázaro urement (mass/volume)Ordered By: Gustabo Florian on 01-31-2025 Calcium [Mass/Vol] 9.4 mg/dL 7.6-11.0 [facility] Serum or plasma urea nitroge n measurement (mass/volume)Ordered By: Gustabo Florian on 01-31-2025 Urea nitrogen [Mass/Vol] 22 mg/dL High 4-19 [facility] Sodium levelOrdered By: Gustabo Florian on 01-31-2025 Sodium [Moles/Vol] 133 mmol/L 133-145 [facility] Squamous epithelial cells de tection in urine sediment by light microscopyOrdered By: Gustabo Florian on 01-31-2025 Epithelial cells.squamous LM Ql (Urine sed) 0-5 SEEN /hpf 0-5 [facility] Total proteinOrdered By: Radha Florian on 01-31-2025 Protein [Mass/Vol] 6.3 g/dL 5.9-8.4 [facility] Urinalysis, Completeon 01-31 EPI,SQUAMOUS 0-5 SEEN Normal 0-5 [facility] Comment on above: Order Comment: CLEAN CATCH Performed By: #### L 400.0001 #### [facility] [address] [place], [address] RBC 0-5 SEEN Normal 0-5 [facility] Comment on above: Order Comment: CLEAN CATCH Performed By: #### L 400.0001 #### [facility] [address] [place], [place], [id number] BACTERIA 0 SEEN Normal None Seen [facility] Comment on above: Order Comment: CLEAN CATCH Performed By: #### L 400.0001 #### [facility] [address] [place], [address] Mucus Ql (Urine sed) 0 SEEN Normal [facility] Comment on above: Order Comment: CLEAN CATCH Performed By: #### L 400.0001 #### [facility] [address] [place], [place], [address] WBC 0 SEEN Normal 0-5 [facility] Comment on above: Order Comment: CLEAN CATCH Performed By: #### L 400.0001 #### [facility] [address] [place], [place], [id number] Urine clarityOrdered By: Radha Florian on 01-31-2025 Clarity (U) Sl. Cloudy Clear [facility] Urine color determinationOrd ered By: Gustabo Florian on 01-31-2025 Color (U) Yellow Yellow [facility] Urine glucose detectionOrder ed By: Gustabo Florian on 01-31-2025 Glucose Ql (U) Normal mg/dl Normal [facility] Urine leukocyte esterase det ection by dipstickOrdered By: Gustabo Florian on 01-31-2025 Leukocyte esterase Test strip Ql (U) Negative Negative [facility] Urine pHOrdered By: Gustabo oddson on 01-31-2025 pH (U) 6.5 [pH] 5.0 - 8.0 [facility] Urine sediment bacteria coun t by microscopy (number/high power field)Ordered By: Gustabo Florian on 01-31-2025 Bacteria LM.HPF (Urine sed) [#/Area] 0 /[HPF] None Seen [facility] Urine specific gravity measu rementOrdered By: Gustabo Florian on 01-31-2025 Specific gravity (U) [Rel density] 1.015 1.002-1.03 0 [facility] Urine urobilinogen measureme ntOrdered By: Gustabo Florian on 01-31-2025 Urobilinogen Ql (U) Normal mg/dl Normal [facility] White blood cell (WBC) count Ordered By: Gustabo Florian on 01-31-2025 WBC (Bld) [#/Vol] 6.4 10*3/uL 4.4-11.0 [facility] White blood cell countOrdere d By: Gustabo Florian on 01-31-2025 White blood cell count 0 SEEN /hpf 0-5 [facility] CNOVon 01-27-2025 CNOV Office Visit (INTMWS ) KENDRICK BARRAZA ([id number]) 1950 M Date Time Provider Department 01/27/25 3:20 PM EVIE GREWAL INTMWS During your visit today, we recorded the following information about you: Temperature Pulse Respiration Blood pressure 99.4 degrees 89/minute 16/minute 128/60 Weight Height 98.2 kg 1.702 m Evie Grewal MD 02/14/2025 8:30 PM Signed This note was created using Alumnizer[employer]. Subjective Kendrick Barraza is a 74 year old male. Patient presents with: Follow Up: diabetes and review labs Kendrick Barraza is a 74-year-old male with a history of diabetes mellitus, presenting for follow-up. Kendrick reports a recent HbA1c of 5.8%. He monitors his blood glucose levels four times daily, with readings typically in the 90-96 mg/dL range. He notes one episode of hypoglycemia with a blood glucose level of 55 mg/dL, which he attributes to taking an excessive dose of metoprolol and reduced food intake. He reports that he did not experience his usual symptoms of diaphoresis and imbalance during this episode, which he found surprising. He denies any other episodes of hypoglycemia. Kendrick also reports bilateral lower extremity edema, which he notes is more pronounced in the morning and improves with elevation. He denies any worsening of edema with heat exposure. He has been using compression stockings at home, which he reports provide some relief, but notes that elevation is more effective in reducing the swelling. He denies any skin breakdown. Recent laboratory results from 01/14/2023 show a blood glucose level of 113 mg/dL, BUN within normal limits, creatinine at 1.2 mg/dL, eGFR in the 60s, liver function tests within normal limits, sodium slightly low, potassium within normal limits, LDL at 120 mg/dL, HDL in the 50s, triglycerides within normal limits, HbA1c at 5.8%, vitamin D within normal limits, PSA at 0.3-0.4 ng/mL, and a slightly elevated izqcnlf-ca-kmhcuexqmk ratio in the 30-40 mg/g range. Kendrick reports that he does not tolerate statins well and is not currently taking them. He also reports that he does not consume salt in his diet. PAST MEDICAL HISTORY Diagnosis Date CAD (coronary artery disease) Stents x 4 CHF (congestive heart failure) ([facility]) 12/22/2011 Class 1 obesity due to excess calories with body mass index (BMI) of 34.0 to 34.9 in adult 09/30/2017 CLL (chronic lymphocytic leukemia) ([facility]) 11/20/2011 cva 10/2011 left pontine infarct Diabetes mellitus without mention of complication Diabetes mellitus Diverticulosis of colon (without mention of hemorrhage) Elevated PSA 12/11/2014 HYPERLIPIDEMIA NEC/NOS 07/22/2006 HYPERTENSION NOS 07/15/2006 Obesity Pleural effusion 11/19/2011 Small lft pleural effusion Noted on chest x-ray [facility] On 11/13/11.blunting of the lft costophrenic andle. PVC (premature ventricular contraction) Uncontrolled type 2 diabetes mellitus with hyperglycemia ([facility]) 01/19/2019 Current Outpatient Medications Medication Sig insulin needles, DISPOSABLE, (PEN NEEDLE) 31 gauge x /16 Use one needle per dose. 4 per day. blood sugar diagnostic (Advanced Surgical ConceptsTOUCH ULTRA TEST) test strip Test blood sugar(s) 4 times daily. Dx: E11.65, DM. Insulin: Yes (Meals and bedtime--4 injections) carvedilol (COREG) 12.5 mg tablet Take 1 tablet by mouth two times a day. ezetimibe (ZETIA) 10 mg tablet Take 1 tablet by mouth once daily. Cholecalciferol, Vitamin D3, 50 mcg (2,000 unit) cap Take 1 capsule by mouth once daily. insulin aspart U-100 (NOVOLOG FLEXPEN U-100 INSULIN) 100 unit/mL (3 mL) Inject 10 Units subcutaneously three times a day before meals. As directed when eats meals insulin glargine (LANTUS SOLOSTAR U-100 INSULIN) 100 unit/mL (3 mL) Inject 5 Units subcutaneously daily at bedtime. (Adjust as indicated) Needs 1 pen a month so please fill 3 pens per 3 months. Give 5 pens if not able to split the box metFORMIN ER (GLUCOPHAGE XR) 500 mg 24 hr tablet Take 4 tablets by mouth once daily. ramipril (ALTACE) 10 mg capsule Take 1 capsule by mouth once daily. docusate sodium (COLACE) 100 mg capsule Take 200 mg by mouth three times daily as needed for constipation. aspirin, enteric coated (ASPIRIN, ENTERIC COATED) 81 mg EC tablet Take 1 tablet by mouth twice daily. No current facility-administered medications for this visit. Review of Systems Objective BP 128/60 Pulse 89 Temp 37.4 ?C (99.4 ?F) (Temporal) Resp 16 Ht 170.2 cm (5' 7) Wt 98.2 kg (216 lb 7.9 oz) SpO2 99% BMI 33.91 kg/m? Last 5 Encounter Wt Readings: Date: Wt: 01/27/2025 98.2 kg (216 lb 7.9 oz) 10/14/2024 101 kg (222 lb 10.6 oz) 07/29/2024 101.7 kg (224 lb 3.3 oz) 04/08/2024 96.6 kg (212 lb 15.4 oz) 12/04/2023 97.5 kg (215 lb) No waist measurement recorded Estimated body mass index is 33.91 kg/m? as calculated from the following: Height as of this encounter: 170.2 cm (5' 7). Weight as (more content not included)... Normal [facility] 25(OH)D3 [facility] 2024 25-hydroxyvitamin D3 [Mass/Vol] 57.4 ng/mL Normal 31.0-80.0 [facility] Comment on above: Order Comment: Speci men Type: BLOOD SPECIMENOrdering Facility: [facility] Address: [address] [place] [address] Performed By: #### 1 989-3 ####[facility] LABCLIA [id number] [place] [address] [place] ALBUMIN/CREATININE RAT[facility] Albumin DL <= 20 mg/L (U) [Mass/Vol] 33.2 mg/L Normal [facility] Comment on above: Order Comment: Speci men Type: BLOOD SPECIMEN Ordering Facility: [facility] Address: [address] [place] [address] Performed By: #### 2 4331-1, 00130-3 #### [facility] CLIA [id number] [address] [place] [address] [place] Albumin/Creatinine (U) [Mass ratio] 44 mg/g High <30 [facility] Comment on above: Order Comment: Speci men Type: BLOOD SPECIMEN Ordering Facility: [facility] Address: [address] [place] [address] Result Comment: Adul t Male and Female Nephrotic Criteria: <30 mg/g is considered normal to mildly increased 30-300 mg/g is considered moderately increased >300 mg/g is considered severely increased KDIGO. (2013). KDIGO 2012 Clinical Practice Guideline for the Evaluation and Management of Chronic Kidney Disease. Official Journal of the International Society of Nephrology, 3(1), 1-150. Performed By: #### 2 4331-1, 79374-1 #### [facility] CLIA [id number] [address] [place] [address] [place] Creatinine (U) [Mass/Vol] 75.6 mg/dL Normal 20.0-300.0 [facility] Comment on above: Order Comment: Speci men Type: BLOOD SPECIMEN Ordering Facility: [facility] Address: [address] [place] [address] Performed By: #### 2 4331-1, 82855-2 #### [facility] CLIA [id number] [address] [place] [address] [place] CBC panel Auto (Bld)on 01-14 Erythrocyte distribution width (RBC) [Ratio] 13.7 % Normal 11.5-15.0 [facility] Comment on above: Order Comment: Speci men Type: BLOOD SPECIMENOrdering Facility: [facility] Address: [address] [place] [address] Performed By: #### 5 8410-2 ####[facility] LABCLIA [id number] [place] [address] [place] Hematocrit (Bld) [Volume fraction] 49.6 % Normal 39.0-51.0 [facility] Comment on above: Order Comment: Speci men Type: BLOOD SPECIMENOrdering Facility: [facility] Address: [address] [place] [address] Performed By: #### 5 8410-2 ####[facility] LABIA [id number] [place] [address] [place] Hemoglobin (Bld) [Mass/Vol] 16.7 g/dL Normal 13.0-17.0 [facility] Comment on above: Order Comment: Speci men Type: BLOOD SPECIMENOrdering Facility: [facility] Address: [address] [place] [address] Performed By: #### 5 8410-2 ####[facility] LABIA [id number] [place] [address] [place] MCH (RBC) [Entitic mass] 29.6 pg Normal 26.0-34.0 [facility] Comment on above: Order Comment: Speci men Type: BLOOD SPECIMENOrdering Facility: [facility] Address: [address] [place] [address] Performed By: #### 5 8410-2 ####[facility] LABIA [id number] [place] [address] [place] MCHC (RBC) [Mass/Vol] 33.7 g/dL Normal 30.5-36.0 [facility] Comment on above: Order Comment: Speci men Type: BLOOD SPECIMENOrdering Facility: [facility] Address: [address] [place] [address] Performed By: #### 5 8410-2 ####[facility] LABIA [id number] [place] [address] [place] MCV (RBC) [Entitic vol] 87.8 fL Normal 80.0-100.0 [facility] Comment on above: Order Comment: Speci men Type: BLOOD SPECIMENOrdering Facility: [facility] Address: [address] [place] [address] Performed By: #### 5 8410-2 ####[facility] LABCLIA [id number] [place] [address] [place] Nucleated RBC (Bld) [#/Vol] 10*3/uL Normal <0.01 [facility] Comment on above: Order Comment: Speci men Type: BLOOD SPECIMENOrdering Facility: [facility] Address: [address] [place] [address] Performed By: #### 5 8410-2 ####[facility] LABIA [id number] [place] [address] [place] Platelet mean volume (Bld) [Entitic vol] 9.4 fL Normal 9.0-12.7 [facility] Comment on above: Order Comment: Speci men Type: BLOOD SPECIMENOrdering Facility: [facility] Address: [address] [place] [address] Performed By: #### 5 8410-2 ####[facility] LABIA [id number] [place] [address] [place] Platelets (Bld) [#/Vol] 197 10*3/uL Normal 150-400 [facility] Comment on above: Order Comment: Speci men Type: BLOOD SPECIMENOrdering Facility: [facility] Address: [address] [place] [address] Performed By: #### 5 8410-2 ####[facility] LABCLIA [id number] [place] [address] [place] RBC (Bld) [#/Vol] 5.65 10*6/uL Normal 4.20-6.00 [facility] Comment on above: Order Comment: Speci men Type: BLOOD SPECIMENOrdering Facility: [facility] Address: [address] [place] [address] Performed By: #### 5 8410-2 ####[facility] LABCLIA [id number] [place] [address] [place] WBC (Bld) [#/Vol] 6.08 10*3/uL Normal 3.70-11.00 [facility] Comment on above: Order Comment: Speci men Type: BLOOD SPECIMENOrdering Facility: [facility] Address: [address] [place] [address] Performed By: #### 5 8410-2 ####[facility] LABCLIA [id number] [place] [address] [place] [facility] Comprehensive metabolic 2000 panelon 01-14-2025 Albumin [Mass/Vol] 4.5 g/dL Normal 3.9-4.9 [facility] Comment on above: Order Comment: Speci men Type: BLOOD SPECIMEN Ordering Facility: [facility] Address: [address] [place] [address] Performed By: #### 2 4331-1, 28154-5 #### [facility] CLIA [id number] [address] [place] [address] [place] ALP [Catalytic activity/Vol] 55 U/L Normal 38-113 [facility] Comment on above: Order Comment: Speci men Type: BLOOD SPECIMEN Ordering Facility: [facility] Address: [address] [place] [address] Performed By: #### 2 4331-1, 99500-6 #### [facility] CLIA [id number] [address] [place] [address] [place] ALT [Catalytic activity/Vol] 9 U/L Low 10-54 [facility] Comment on above: Order Comment: Speci men Type: BLOOD SPECIMEN Ordering Facility: [facility] Address: [address] [place] [address] Performed By: #### 2 4331-1, #### [facility] CLIA [id number] [address] [place], [place] [id number] [place] Anion gap [Moles/Vol] 14 mmol/L Normal 8-15 [facility] Comment on above: Order Comment: Speci men Type: BLOOD SPECIMEN Ordering Facility: [facility] Address: [address] [place] [address] Performed By: #### 2 4331-1, #### [facility] CLIA [id number] [address] [place] [address] [place] AST [Catalytic activity/Vol] 18 U/L Normal 14-40 [facility] Comment on above: Order Comment: Speci men Type: BLOOD SPECIMEN Ordering Facility: [facility] Address: [address] [place] [address] Performed By: #### 2 4331-, #### [facility] CLIA [id number] [address] [place] [address] [place] Bilirubin [Mass/Vol] 0.6 mg/dL Normal 0.2-1.3 [facility] Comment on above: Order Comment: Speci men Type: BLOOD SPECIMEN Ordering Facility: [facility] Address: [address] [place] [address] Performed By: #### 2 4331-1, #### [facility] CLIA [id number] [address] [place] [address] [place] Calcium [Mass/Vol] 9.8 mg/dL Normal 8.5-10.2 [facility] Comment on above: Order Comment: Speci men Type: BLOOD SPECIMEN Ordering Facility: [facility] Address: [address] [place] [address] Performed By: #### 2 4331-1, 68400-0 #### [facility] CLIA [id number] [address] [place] [address] [place] Chloride [Moles/Vol] 97 mmol/L Low 98-107 [facility] Comment on above: Order Comment: Wilma peña Type: BLOOD SPECIMEN Ordering Facility: [facility] Address: [address] [place] [address] Performed By: #### 2 4331-1, 99980-9 #### [facility] CLIA [id number] [address] [place] [address] [place] CO2 [Moles/Vol] 23 mmol/L Normal 22-30 [facility] Comment on above: Order Comment: Speci men Type: BLOOD SPECIMEN Ordering Facility: [facility] Address: [address] [place] [address] Performed By: #### 2 4331-1, 13612-1 #### [facility] CLIA [id number] [address] [place] [address] [place] Creatinine [Mass/Vol] 1.23 mg/dL High 0.73-1.22 [facility] Comment on above: Order Comment: Speci men Type: BLOOD SPECIMEN Ordering Facility: [facility] Address: [address] [place] [address] Performed By: #### 2 4331-1, 61260-0 #### [facility] CLIA [id number] [address] [place] [address] [place] Creatinine and Glomerular filtration rate.predicted panel (S/P/Bld) 61 mL/min/1.73m??? Normal >=60 [facility] Comment on above: Order Comment: uSdhiri casey Type: BLOOD SPECIMEN Ordering Facility: [facility] Address: [address] [place] [address] Result Comment: Summer mated Glomerular Filtration Rate (eGFR) is calculated using the 2020 CKD-EPI creatinine equation. This equation utilizes serum creatinine, sex, and age as parameters. The creatinine assay has traceable calibration to isotope dilution-mass spectrometry. Refer to KDIGO guidelines for clinical interpretation. In patients with unstable renal function, e.g. those with acute kidney injury, the eGFR may not accurately reflect actual GFR. Performed By: #### 2 4331-1, 46330-1 #### [facility] CLIA [id number] [address] [place] [address] [place] Glucose [Mass/Vol] 113 mg/dL High 74-99 [facility] Comment on above: Order Comment: Speci men Type: BLOOD SPECIMEN Ordering Facility: [facility] Address: [address] [place] [address] Result Comment: The [place] Diabetes Association (ADA) provides guidance for cutoff values for fasting glucose and random glucose. The ADA defines fasting as no caloric intake for at least 8 hours. Fasting plasma glucose results between 100 to 125 mg/dL indicate increased risk for diabetes (prediabetes). Fasting plasma glucose results greater than or equal to 126 mg/dL meet the criteria for diagnosis of diabetes. In the absence of unequivocal hyperglycemia, results should be confirmed by repeat testing. In a patient with classic symptoms of hyperglycemia or hyperglycemic crisis, random plasma glucose results greater than or equal to 200 mg/dL meet the criteria for diagnosis of diabetes. Reference: Standards of Medical Care in Diabetes 2016, [place] Diabetes Association. Diabetes Care. 2016.39(Suppl 1). Performed By: #### 2 4331-1, 65566-3 #### [facility] CLIA [id number] [address] [place] [address] [place] Potassium [Moles/Vol] 5.0 mmol/L Normal 3.7-5.1 [facility] Comment on above: Order Comment: Sudhiri men Type: BLOOD SPECIMEN Ordering Facility: [facility] Address: [address] [place] [address] Performed By: #### 2 4331-1, 28398-6 #### [facility] [place] [id number] [address] [place] [address] [place] Protein [Mass/Vol] 6.7 g/dL Normal 6.3-8.0 [facility] Comment on above: Order Comment: Sudhiri men Type: BLOOD SPECIMEN Ordering Facility: [facility] Address: [address] [place] [address] Performed By: #### 2 4331-1, 38755-7 #### [facility] CLIA [id number] [address] [place] [address] [place] Sodium [Moles/Vol] 134 mmol/L Low 136-144 [facility] Comment on above: Order Comment: Speci men Type: BLOOD SPECIMEN Ordering Facility: [facility] Address: [address] [place] [address] Performed By: #### 2 4331-1, #### [facility] CLIA [id number] [address] [place] [address] [place] Urea nitrogen [Mass/Vol] 23 mg/dL Normal 9-24 [facility] Comment on above: Order Comment: Speci men Type: BLOOD SPECIMEN Ordering Facility: [facility] Address: [address] [place] [address] Performed By: #### 2 4331-1, #### [facility] CLIA [id number] [address] [place] [address] [place] HbA1c (Bld)on 01-14-2025 Average glucose Estimated from glycated hemoglobin (Bld) [Mass/Vol] 120 mg/dL Normal [facility] Comment on above: Order Comment: Speci men Type: BLOOD SPECIMEN Ordering Facility: [facility] Address: [address] [place] [address] Result Comment: eAG: (Estimated average glucose) is a calculated value from HgbA1c and is sales representative rural power of the average blood glucose level in the last 2-3 month period. Performed By: #### 2 4331-1, 85649-1 #### [facility] CLIA [id number] [address] [place] [address] [place] HbA1c (Bld) [Mass fraction] 5.8 % High 4.3-5.6 [facility] Comment on above: Order Comment: Speci men Type: BLOOD SPECIMEN Ordering Facility: [facility] Address: [address] [place] [address] Result Comment: [place] Diabetes Association guidelines indicate that patients with HgbA1c in the range 5.7-6.4% are at increased risk for development of diabetes, and intervention by lifestyle modification may be beneficial. HgbA1c greater or equal to 6.5% is considered diagnostic of diabetes. Performed By: #### 2 4331-1, 89777-7 #### [facility] CLIA [id number] [address] [place] [address] [place] Lipid 1996 panelon 5 Cholesterol [Mass/Vol] 186 mg/dL Normal <200 [facility] Comment on above: Order Comment: Wilma peña Type: BLOOD SPECIMEN Ordering Facility: [facility] Address: [address] [place] [address] Result Comment: <200 mg/dL, Desirable 200-239 mg/dL, Borderline high >239 mg/dL, High Performed By: #### 2 4331-1, 03375-9 #### [facility] CLIA [id number] [address] [place] [address] [place] Cholesterol in HDL [Mass/Vol] 50 mg/dL Normal >39 [facility] Comment on above: Order Comment: Wilma peña Type: BLOOD SPECIMEN Ordering Facility: [facility] Address: [address] [place] [address] Result Comment: 40-5 9 mg/dL, Acceptable >59 mg/dL, High: Negative risk factor for coronary heart disease <40 mg/dL, Low: Positive risk factor for coronary heart disease Performed By: #### 2 4331-1, 26812-3 #### [facility] CLIA [id number] [address] [place] [address] [place] Cholesterol in LDL [Mass/Vol] 120 mg/dL High <100 [facility] Comment on above: Order Comment: Wilma peña Type: BLOOD SPECIMEN Ordering Facility: [facility] Address: [address] [place] [address] Result Comment: <100 mg/dL, Optimal 100-129 mg/dL, Near optimal/above optimal 130-159 mg/dL, Borderline high 160-189 mg/dL, High >189 mg/dL, Very high Secondary prevention optimal LDL Cholesterol levels are recommended to be <70 mg/dL LDL cholesterol is calculated using the Yost-NIH equation. Performed By: #### 2 4331-1, 06526-9 #### [facility] CLIA [id number] [address] [place] [address] [place] Cholesterol in LDL/Cholesterol in HDL [Mass ratio] 2.40 {ratio} Normal <2.54 [facility] Comment on above: Order Comment: Wilma peña Type: BLOOD SPECIMEN Ordering Facility: [facility] Address: [address] [place] [address] Result Comment: Refe rence: 1. National Cholesterol Education Program ATP III Guideline At-A-Glance Quick Desk Reference: National Heart, Lung, and Blood [place]. National Institutes of Health. 2001: NIH Publication No. 01-3305. 2. An International Atherosclerosis Society position paper: global recommendations for the management of dyslipidemia: executive summary, Atherosclerosis. 2014: 232(2):410-413. Performed By: #### 2 4331-, #### [facility] CLIA [id number] [address] [place] [address] [place] Cholesterol in VLDL [Mass/Vol] 15 mg/dL Normal <30 [facility] Comment on above: Order Comment: Wilma peña Type: BLOOD SPECIMEN Ordering Facility: [facility] Address: [address] [place] [address] Performed By: #### 2 4331-1, #### [facility] CLIA [id number] [address] [place] [address] [place] Cholesterol non HDL [Mass/Vol] 136 mg/dL High <130 [facility] Comment on above: Order Comment: Wilma peña Type: BLOOD SPECIMEN Ordering Facility: [facility] Address: [address], [place] [address] Result Comment: <130 mg/dL, Optimal 130-159 mg/dL, Near optimal/above optimal 160-189 mg/dL, Borderline high 190-219 mg/dL, High >219 mg/dL, Very high Secondary prevention optimal non HDL Cholesterol levels are recommended to be <100 mg/dL Performed By: #### 2 4331-1, #### [facility] CLIA [id number] [address] [place] [address] [place] Cholesterol.total/Cho lesterol in HDL [Mass ratio] 3.72 {ratio} Normal <5.10 [facility] Comment on above: Order Comment: Speci men Type: BLOOD SPECIMEN Ordering Facility: [facility] Address: [address] [place] [address] Performed By: #### 2 4331-1, #### [facility] CLIA [id number] [address] [place] [address] [place] FASTING TIME 15 hrs Normal [facility] Comment on above: Order Comment: Speci men Type: BLOOD SPECIMEN Ordering Facility: [facility] Address: [address] [place] [address] Performed By: #### 2 4331-1, #### [facility] CLIA [id number] [address] [place] [address] [place] Triglyceride [Mass/Vol] 88 mg/dL Normal <150 [facility] Comment on above: Order Comment: Speci men Type: BLOOD SPECIMEN Ordering Facility: [facility] Address: [address] [place] [address] Result Comment: <150 mg/dL, Normal 150-199 mg/dL, Borderline high 200-499 mg/dL, High >499 mg/dL, Very high Performed By: #### 2 4331-1, #### [facility] CLIA [id number] [address] [place], [place] [id number] [place] PSA/PROSTATE SPECIFIC ANTIGE N SCREENINGon 01-14-2025 Prostate specific Ag [Mass/Vol] 0.43 ng/mL Normal <2.60 [facility] Comment on above: Order Comment: Speci men Type: BLOOD SPECIMEN Ordering Facility: [facility] Address: [address] [place] [address] Result Comment: Pja l PSA test methodology used is the Electrochemiluminescence Immunoassay by [employer]. Total PSA values by differing methodologies cannot be interchanged. Performed By: #### 2 4331-1, 84709-5 #### [facility] CLIA [id number] [address] [place] [address] [place] [id number] [facility] CNOVon 12-02-2024 CNOV Office Visit (PODIWS ) KENDRICK BARRAZA ([id number]) 1950 M Date Time Provider Department 12/02/24 2:20 PM PAPA GAR PODIWS During your visit today, we recorded the following information about you: Honey Haney LPN 12/02/2024 2:33 PM Signed AMB ROOMING INTAKE FLOWSHEET DATA Patient presents with: Right Foot - Established Patient, Nail Care Left Foot - Established Patient, Nail Care ELLA Doe Matthew 12/02/2024 2:13 PM Signed Diabetes Foot Care Instructions When you have diabetes, proper foot care is very important. Poor foot care may lead to amputation of a foot or leg. As a person with diabetes, you are more vulnerable to foot problems, because diabetes can damage your nerves and reduce blood flow to your feet. Here are some diabetes foot care tips to follow: Wash and Dry Your Feet Daily Use mild soaps Use warm water Pat your skin dry; do not rub. Thoroughly dry your feet. After washing, use lotion on your feet to prevent cracking. Do not put lotion between your toes. Examine Your Feet Each Day Check the tops and bottoms of your feet. Have someone else look at your feet if you cannot see them. Check for dry, cracked skin. Look for blisters, cuts, scratches, or other sores. Check for redness, increased warmth, or tenderness when touching any area of your feet. Check for ingrown toenails, corns, and calluses. If you get a blister or sore from your shoes, do not pop it. Apply a bandage and wear a different pair of shoes. Take Care of Your Toenails Cut toenails after bathing, when they are soft. Cut toenails straight across and smooth with a nail file. Avoid cutting into the corners of toes. Do not cut cuticles. If you have neuropathy (or decreased sensation in your feet) a passport support associate should always cut your toenails. Be Careful When Exercising Walk and exercise in comfortable shoes. Do not exercise when you have open sores on your feet. Protect Your Feet With Shoes and Socks Never go barefoot. Always protect your feet by wearing shoes or hard-soled slippers or footwear. Avoid shoes with high heels and pointed toes. Avoid shoes that expose your toes or heels (such as open-toed shoes or sandals). These types of shoes increase your risk for injury and potential infections. Try on new footwear with the type of socks you usually wear. Do not wear new shoes for more than an hour at a time. Change your socks daily. Look and feel inside your shoes before putting them on to make sure there are no foreign objects or rough areas. Avoid tight socks. Wear natural-fiber socks (cotton, wool, or a cotton-wool blend). Wear special shoes if your health care provider recommends them. Wear shoes/boots that will protect your feet from various weather conditions (cold, moisture, etc.). Make sure your shoes fit properly. If you have neuropathy (nerve damage), you may not notice that your shoes are too tight. Perform the footwear test described below. Footwear Test Use this simple test to see if your shoes fit correctly: Stand on a piece of paper. (Make sure you are standing and not sitting, because your foot changes shape when you stand.) Trace the outline of your foot. Trace the outline of your shoe. Compare the tracings: Is the shoe too narrow? Is your foot crammed into the shoe? The shoe should be at least 1/2 inch longer than your longest toe and as wide as your foot. Proper Shoe Choices The following types of shoes are best for people with diabetes Closed toes and heels Leather uppers without a seam inside At least 1/2 inch extra space at the end of your longest toe Inside of shoe should be soft with no rough areas Outer sole should be made of stiff material Shoes should be at least as wide as your feet Tips for Foot Care in Diabetes Don't wait to treat a minor foot problem if you have diabetes. Follow your health care provider's guidelines and first aid guidelines. Report foot injuries and infections to your health care provider immediately. Check water temperature with your elbow, not your foot. Do not use a heating pad on your feet. Do not cross your legs. Do not self-treat your corns, calluses, or other foot problems. Go to your health care provider or passport support associate to treat these conditions. Papa Gar 12/02/2024 2:33 PM Signed Last saw pcp; 10/14/24 Subjective: Patient presents to clinic c/o painful toenails. They state that the nails are especially painful with shoe gear and pressure. Patient states that nails 1-5 b/l are painful. Patient admits to being diabetic. No other pedal complaints at this time. Patient states no change in medications or medical history since last visit. Objective: Patient presents to clinic ambulating in diabetic shoes Vasc: DP and PT pulses are nonpalpable bilateral. CFT is less than 5 seconds bilater (more content not included)... Normal [facility] CNOVon 10-14-2024 CNOV Office Visit (INTMWS ) KENDRICK BARRAZA ([id number]) 1950 M Date Time Provider Department 10/14/24 2:00 PM ANNA HERNANDEZ INTBayWS During your visit today, we recorded the following information about you: Pulse Respiration Blood pressure Weight 92/minute 16/minute 156/79 101 kg Height 1.715 m Anna Hernandez APRN.[employer]FFEE SHOP ATTENDANT 10/14/2024 2:52 PM Signed Ray Francis Barraza is a 73 year old male here for a Medicare wellness visit. Medicare Health Risk Assessment General Health Very good Exercise: Minutes/Day 30 min Exercise: Days/Week 4 days Alcohol: Daily Use Never Alcohol: Drinks/Day Patient does not drink Alcohol: 6 or more drinks Never Feel off balance No Concerns: Teeth/Dentures No Concerns: Sexual function No Troubled by feelings None of the above Frequency: Eating healthy diet Several days ADLs requiring help None of the above Safety precautions in home/vehicle Yes Smoke, vape, chews tobacco No Difficulty hearing No Difficulty seeing No Current Providers Specialists: I have reviewed specialist-related care of the patient in the medical record. Dr Fairbanks ophthalmology [facility], reports no recent echocardiogram or EKG. Dr. Vargas urology Medical/Family history review Reviewed and updated problem list, medical/surgical/family/soci al history, medications, and allergies. Opioid use review Opioid Medications (last 90 days) No data to display Anxiety/Depression screening PHQ-2 Score: 0 (Lower risk for depression) Recommendation: no further intervention at this time Cognitive screening Mini Cog Score: 5 Cognitive screening reviewed and No further action needed (score 3-5). Functional Observation Was the patient's Timed Up AND Go test unsteady or >= 12 seconds? No Advance Care Planning Surrogate decision maker and/or advance care plan documented Patient's last HgA1C . He notes holding insulin at times. Blood sugars generally 100 or greater. Defers stopping Lantus insulin at this time. Hemoglobin A1C Date Value 07/12/2024 5.8 % 11/13/2023 6.2 % 06/11/2023 6.1 04/13/2021 6.5 % 12/08/2020 7.0 % Hemoglobin A1C (POCT) (%) Date Value 07/26/2021 6.4 ) Measurements BP 156/79 Pulse 92 Resp 16 Ht 171.5 cm (5' 7.52) Wt 101 kg (222 lb 10.6 oz) BMI 34.34 kg/m? Follows with ophthalmology regularly Assessment/Plan Medicare annual wellness visit, subsequent (Z00.00) - Counseled on healthy diet and regular exercise - Fall avoidance information provided - Personalized prevention plan provided He notes to walk up to his visit today caused him to feel tired. Endorse completing echo or EKG in the near future if not completed by cardiology at his next visit for recheck. Consider stopping insulin. Deferred for now. Anna Hernandez APRN.Anna Villavicencio APRN.CNS 10/14/2024 2:16 PM Signed Screening schedule The following prevention plan is recommended: Shingrix Vaccine(1 of 2) Never done RSV Vaccine(1 - Risk 60-74 years 1-dose series) Never done DTaP,Tdap,Td Vaccine(2 - Td or Tdap) due on 05/11/2022 Advance Directive Discussion due on 08/17/2024 WHAT YOU CAN DO TO PREVENT FALLS Many falls can be prevented. By making some changes, you can lower your chances of falling. Four things YOU can do to prevent falls for you* and your caregiver 1. Begin a regular exercise program Exercise is one of the most important ways to lower your chances of falling. It makes you stronger and helps you feel better. Exercises that improve balance and coordination (like Junior Chi) are the most helpful. Lack of exercise leads to weakness and increases your chances of falling. Ask your doctor or health care provider about the best type of exercise program for you. 2. Have your health care provider review your medicines Have your doctor or pharmacist review all the medicines you take, even seau-dym-[id number] medicines. As you get older, the way medicines work in your body can change. Some medicines, or combinations of medicines, can make you sleepy or dizzy and can cause you to fall. 3. Have your vision checked Have your eyes checked by an eye doctor at least once a year. You may be wearing the wrong glasses or have a condition like glaucoma or cataracts that limits your vision. Poor vision can increase your chances of falling. 4. Make your home safer About half of all falls happen at home. To make your home safer: Remove things you can trip over (like papers, books, clothes, and shoes) from stairs and places where you walk. Remove small throw rugs or use double-sided tape to keep the rugs from slipping. Keep items you use often in cabinets you can reach easily without using a step stool. Have grab bars put in next to your toilet and in the tub or shower. Use non-slip mats in the bathtub and on shower floors. Improve the lighting in your home. As you get older, (more content not included)... Normal [facility] KENDR[facility] BARRA[facility] ([id number]) 1950 M Date Time Provider Department 09/07/24 EVIE GREWAL INTMWS During your visit today, we recorded the following information about you: Bay Jarrett RN 09/07/2024 2:[address] Mccann phoned asking if pcp received a packet they faxed on the and the . Confirmed she is using the correct fax number. Reports patient saw pcp and also saw Dr. Gar, and Dr. Gar sent them an Rx for diabetic shoes. They need the ov notes with pcp faxed them them, along with the certificate of medical necessity signed by pcp that is also in the packet they faxed, so that they can get patient his diabetic shoes. Please fax these items to Dr. Mccann at fax # [phone] Belkys Up LPN 09/07/2024 5:38 PM Signed Provider out of office at this time, will address [facility]. ELLA Butterfield Liza D, MD 09/09/2024 7:01 PM Signed Form completed/signed Verify faxed back Sheryl Rothman LPN 09/12/2024 9:26 AM Signed Form faxed back 09/09/24 Allergies As of Date: 09/07/2024 Noted Allergy Reaction OXYCODONE 11/26/2021 11 - Vomiting CIPROFLOXACIN 03/30/2017 11 - Vomiting Comments: dizziness CRESTOR (ROSUVASTATIN) 07/15/2006 5 - Intolerance Comments: Severe myalgias; could not work because so severe LIPITOR (ATORVASTATIN CALCIUM) 11/20/2011 14 - Other: See Comments Comments: Joint pain PRAVACHOL (PRAVASTATIN SODIUM) 02/09/2012 5 - Intolerance Comments: myalgias STATINS ([id number] REDUCTAS*07/20/2009 5 - Intolerance Comments: Muscle aches; so bad cannot move Date Reviewed: 09/02/2024 Reviewed by: Ina Roper LPN - Fully Assessed Reason for Visit: Diabetic shoes [Other] Prescriptions as of 09/12/2024 - blood sugar diagnostic ([employer] ULTRA TEST) test strip Test blood sugar(s) 4 times daily. Dx: E11.65, DM. Insulin: Yes (Meals and bedtime--4 injections) - carvedilol (COREG) 12.5 mg tablet Take 1 tablet by mouth two times a day. - ezetimibe (ZETIA) 10 mg tablet Take 1 tablet by mouth once daily. - Cholecalciferol, Vitamin D3, 50 mcg (2,000 unit) cap Take 1 capsule by mouth once daily. - insulin aspart U-100 (NOVOLOG FLEXPEN U-100 INSULIN) 100 unit/mL (3 mL) Inject 10 Units subcutaneously three times a day before meals. As directed when eats meals - insulin glargine (LANTUS SOLOSTAR U-100 INSULIN) 100 unit/mL (3 mL) Inject 5 Units subcutaneously daily at bedtime. (Adjust as indicated) Needs 1 pen a month so please fill 3 pens per 3 months. Give 5 pens if not able to split the box - metFORMIN ER (GLUCOPHAGE XR) 500 mg 24 hr tablet Take 4 tablets by mouth once daily. - ramipril (ALTACE) 10 mg capsule Take 1 capsule by mouth once daily. - docusate sodium (COLACE) 100 mg capsule Take 200 mg by mouth three times daily as needed for constipation. - aspirin, enteric coated (ASPIRIN, ENTERIC COATED) 81 mg EC tablet Take 1 tablet by mouth twice daily. - ascorbic acid, vitamin C, (VITAMIN C) 500 mg tablet Take 1 tablet by mouth twice daily with meals for 26 doses. - insulin needles, DISPOSABLE, (PEN NEEDLE) 31 gauge x 5/16 ndle Use one needle per dose. 4 per day. 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] 09/15/2012 Statin intolerance [Z78.9] 11/03/2013 BMI 39.0-39.9,adult [Z68.39] 04/16/2017 Prostate cancer (HCC) [C61] 12/11/2014 BPH (benign prostatic hyperplasia) [N40.0] 12/11/2014 Elevated PSA [R97.20] 12/27/2014 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*03/06/2015 Hot flashes [R23.2] 12/27/2015 Sebaceous cyst [L72.3] 05/21/2016 Morbid obesity (HCC) [E66.01] 09/30/2017 05/01/2023 Uncontrolled type 2 diabetes mellitus with hype*01/19/2019 11/01/2021 Primary osteoarthritis of left hip [M16.12] 11/01/2021 Obesity, Class I, BMI 30-34.9 [E66.811] 12/08/2022 Stage 3a chronic kidney disease (HCC) [N18.31] 01/16/2023 08/20/2023 PAD (peripheral artery disease) (HCC) [I73.9] 08/20/2023 Encounter Status:Closed by SHERYL ROTHMAN on 09/12/[address] [facility] CNOVon 09-02-2024 CNOV Office Visit (PODIWS ) KENDRICK BARRAZA ([id number]) 1950 M Date Time Provider Department 09/02/24 3:00 PM LISSA GAREW PODIWS During your visit today, we recorded the following information about you: Papa Gar 09/02/2024 3:13 PM Signed Diabetes Foot Care Instructions When you have diabetes, proper foot care is very important. Poor foot care may lead to amputation of a foot or leg. As a person with diabetes, you are more vulnerable to foot problems, because diabetes can damage your nerves and reduce blood flow to your feet. Here are some diabetes foot care tips to follow: Wash and Dry Your Feet Daily Use mild soaps Use warm water Pat your skin dry; do not rub. Thoroughly dry your feet. After washing, use lotion on your feet to prevent cracking. Do not put lotion between your toes. Examine Your Feet Each Day Check the tops and bottoms of your feet. Have someone else look at your feet if you cannot see them. Check for dry, cracked skin. Look for blisters, cuts, scratches, or other sores. Check for redness, increased warmth, or tenderness when touching any area of your feet. Check for ingrown toenails, corns, and calluses. If you get a blister or sore from your shoes, do not pop it. Apply a bandage and wear a different pair of shoes. Take Care of Your Toenails Cut toenails after bathing, when they are soft. Cut toenails straight across and smooth with a nail file. Avoid cutting into the corners of toes. Do not cut cuticles. If you have neuropathy (or decreased sensation in your feet) a passport support associate should always cut your toenails. Be Careful When Exercising Walk and exercise in comfortable shoes. Do not exercise when you have open sores on your feet. Protect Your Feet With Shoes and Socks Never go barefoot. Always protect your feet by wearing shoes or hard-soled slippers or footwear. Avoid shoes with high heels and pointed toes. Avoid shoes that expose your toes or heels (such as open-toed shoes or sandals). These types of shoes increase your risk for injury and potential infections. Try on new footwear with the type of socks you usually wear. Do not wear new shoes for more than an hour at a time. Change your socks daily. Look and feel inside your shoes before putting them on to make sure there are no foreign objects or rough areas. Avoid tight socks. Wear natural-fiber socks (cotton, wool, or a cotton-wool blend). Wear special shoes if your health care provider recommends them. Wear shoes/boots that will protect your feet from various weather conditions (cold, moisture, etc.). Make sure your shoes fit properly. If you have neuropathy (nerve damage), you may not notice that your shoes are too tight. Perform the footwear test described below. Footwear Test Use this simple test to see if your shoes fit correctly: Stand on a piece of paper. (Make sure you are standing and not sitting, because your foot changes shape when you stand.) Trace the outline of your foot. Trace the outline of your shoe. Compare the tracings: Is the shoe too narrow? Is your foot crammed into the shoe? The shoe should be at least 1/2 inch longer than your longest toe and as wide as your foot. Proper Shoe Choices The following types of shoes are best for people with diabetes Closed toes and heels Leather uppers without a seam inside At least 1/2 inch extra space at the end of your longest toe Inside of shoe should be soft with no rough areas Outer sole should be made of stiff material Shoes should be at least as wide as your feet Tips for Foot Care in Diabetes Don't wait to treat a minor foot problem if you have diabetes. Follow your health care provider's guidelines and first aid guidelines. Report foot injuries and infections to your health care provider immediately. Check water temperature with your elbow, not your foot. Do not use a heating pad on your feet. Do not cross your legs. Do not self-treat your corns, calluses, or other foot problems. Go to your health care provider or passport support associate to treat these conditions. Papa Gar 09/05/2024 11:50 AM Signed Last saw pcp: 07/29/24 Subjective: Patient presents to clinic c/o painful toenails. They state that the nails are especially painful with shoe gear and pressure. Patient states that nails 1-5 b/l are painful. Patient admits to being diabetic. No other pedal complaints at this time. Patient states no change in medications or medical history since last visit. Objective: Patient presents to clinic ambulating in diabetic shoe Vasc: DP and PT pulses are nonpalpable bilateral. CFT is less than 5 seconds bilateral. Skin temperature is warm to cool proximal to distal bilateral. There is mild edema or varicosities noted. Neuro: Protective sensation is absent to the foot and toes when tested with the 5.07 SWM bilateral. V (more content not included)... [facility] KENDRICK BARRAZA ([id number]) 1950 M Date Time Provider Department 08/29/24 EVIE GREWAL [facility] During your visit today, we recorded the following information about you: Lauren Latif LPN 08/29/2024 10:31 AM Signed Last OV: 08/22/24 with MICHELLE Duron. Pt calls to report that [facility] said they have rx for One Touch Ultra testing strips (08/22/24) but needs more information from 's office. Spoke to the pharmacist at [facility] who reports they have faxed a form that has to be filled out by provider. Pharmacist re-faxed form today. Pt notified of form and need for provider to fill it out before he can get his rx for test strips. ELLA Kolb Julia, LPN 08/30/2024 2:42 PM Signed Form printed and given to Anna Hernandez nurse. Lizzette Mcwilliams LPN 09/07/2024 11:39 AM Signed Form completed AND faxed 08/30/2024. Lizzette Mcwilliams LPN Allergies As of Date: 08/29/2024 Noted Allergy Reaction OXYCODONE 11/26/2021 11 - Vomiting CIPROFLOXACIN 03/30/2017 11 - Vomiting Comments: dizziness CRESTOR (ROSUVASTATIN) 07/15/2006 5 - Intolerance Comments: Severe myalgias; could not work because so severe LIPITOR (ATORVASTATIN CALCIUM) 11/20/2011 14 - Other: See Comments Comments: Joint pain PRAVACHOL (PRAVASTATIN SODIUM) 02/09/2012 5 - Intolerance Comments: myalgias STATINS (AZRLZLG-JYS-AAS REDUCTAS*07/20/2009 5 - Intolerance Comments: Muscle aches; so bad cannot move Date Reviewed: 07/29/2024 Reviewed by: Leanne Terry LPN - Fully Assessed Reason for Visit: prescription problem [Other] Prescriptions as of 09/07/2024 - blood sugar diagnostic (Advanced Surgical ConceptsTOUCH ULTRA TEST) test strip Test blood sugar(s) 4 times daily. Dx: E11.65, DM. Insulin: Yes (Meals and bedtime--4 injections) - carvedilol (COREG) 12.5 mg tablet Take 1 tablet by mouth two times a day. - ezetimibe (ZETIA) 10 mg tablet Take 1 tablet by mouth once daily. - Cholecalciferol, Vitamin D3, 50 mcg (2,000 unit) cap Take 1 capsule by mouth once daily. - insulin aspart U-100 (NOVOLOG FLEXPEN U-100 INSULIN) 100 unit/mL (3 mL) Inject 10 Units subcutaneously three times a day before meals. As directed when eats meals - insulin glargine (LANTUS SOLOSTAR U-100 INSULIN) 100 unit/mL (3 mL) Inject 5 Units subcutaneously daily at bedtime. (Adjust as indicated) Needs 1 pen a month so please fill 3 pens per 3 months. Give 5 pens if not able to split the box - metFORMIN ER (GLUCOPHAGE XR) 500 mg 24 hr tablet Take 4 tablets by mouth once daily. - ramipril (ALTACE) 10 mg capsule Take 1 capsule by mouth once daily. - docusate sodium (COLACE) 100 mg capsule Take 200 mg by mouth three times daily as needed for constipation. - aspirin, enteric coated (ASPIRIN, ENTERIC COATED) 81 mg EC tablet Take 1 tablet by mouth twice daily. - ascorbic acid, vitamin C, (VITAMIN C) 500 mg tablet Take 1 tablet by mouth twice daily with meals for 26 doses. - insulin needles, DISPOSABLE, (PEN NEEDLE) 31 gauge x 5/16 ndle Use one needle per dose. 4 per day. 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] 09/15/2012 Statin intolerance [Z78.9] 11/03/2013 BMI 39.0-39.9,adult [Z68.39] 04/16/2017 Prostate cancer (HCC) [C61] 12/11/2014 BPH (benign prostatic hyperplasia) [N40.0] 12/11/2014 Elevated PSA [R97.20] 12/27/2014 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*03/06/2015 Hot flashes [R23.2] 12/27/2015 Sebaceous cyst [L72.3] 05/21/2016 Morbid obesity (HCC) [E66.01] 09/30/2017 05/01/2023 Uncontrolled type 2 diabetes mellitus with hype*01/19/2019 11/01/2021 Primary osteoarthritis of left hip [M16.12] 11/01/2021 Obesity, Class I, BMI 30-34.9 [E66.811] 12/08/2022 Stage 3a chronic kidney disease (HCC) [N18.31] 01/16/2023 08/20/2023 PAD (peripheral artery disease) (HCC) [I73.9] 08/20/2023 Encounter Status:Closed by LIZZETTE MCWILLIAMS on 09/07/[address] [facility] CNOVon 07-29-2024 CNOV Office Visit (INTMWS ) KENDRICK BARRAZA ([id number]) 1950 M Date Time Provider Department 07/29/24 4:00 PM [facility] GRE[facility] During your visit today, we recorded the following information about you: Pulse Respiration Blood pressure Weight 89/minute 16/minute 124/62 101.7 kg Height 1.715 m Evie Grewal MD 07/29/2024 5:35 PM Signed This note was created using Gasng[employer]. Subjective Kendrick Barraza is a 73 year old male. Patient presents with: Follow Up: DM, and med refills SUBJECTIVE: Kendrick Barraza is a 73 year old year old gentleman here today for follow up appointment for review of medical conditions. Kendrick Barraza is a 73-year-old male with a history of diabetes mellitus, presenting for a 4-month follow-up. Kendrick reports his most recent HbA1c is 5.8%. He denies experiencing hypoglycemia, though he notes his blood glucose levels occasionally drop into the 70s without associated symptoms. He is currently taking Novolog 10 units with meals and Lantus 5 units at bedtime, though he sometimes skips doses based on his blood glucose readings. He reports that his current regimen is effective in managing his blood glucose levels, and he occasionally uses Lantus to correct postprandial hyperglycemia. He also notes that there are some meals where he does not require Novolog. Kendrick reports a gradual weight increase from 206 lbs in July 2023 to 224 lbs currently. He is also taking metformin, carvedilol, Zetia, and ilnz-jni-pmkbpek vitamin D 2,000 units daily. He has a history of statin intolerance, which caused myalgia. He is up to date on his PSA screening and is following with urology. He has had a recent eye exam, during which his machine setter automatic reportedly noted no signs of diabetic retinopathy. Ray declines further COVID-19 vaccinations and flu shots, citing adverse reactions. He also declines the shingles and RSV vaccines. He denies any swelling.; PAST MEDICAL HISTORY Diagnosis Date CAD (coronary artery disease) Stents x 4 CHF (congestive heart failure) ([facility]) 12/22/2011 Class 1 obesity due to excess calories with body mass index (BMI) of 34.0 to 34.9 in adult 09/30/2017 CLL (chronic lymphocytic leukemia) ([facility]) 11/20/2011 cva 10/2011 left pontine infarct Diabetes mellitus without mention of complication Diabetes mellitus Diverticulosis of colon (without mention of hemorrhage) Elevated PSA 12/11/2014 HYPERLIPIDEMIA NEC/NOS 07/22/2006 HYPERTENSION NOS 07/15/2006 Obesity Pleural effusion 11/19/2011 Small lft pleural effusion Noted on chest x-ray wc On 11/13/11.blunting of the lft costophrenic andle. PVC (premature ventricular contraction) Uncontrolled type 2 diabetes mellitus with hyperglycemia ([facility]) 01/19/2019 Current Outpatient Medications Medication Sig insulin aspart U-100 (NOVOLOG FLEXPEN U-100 INSULIN) 100 unit/mL (3 mL) Inject 10 Units subcutaneously three times a day before meals. As directed when eats meals insulin glargine (LANTUS SOLOSTAR U-100 INSULIN) 100 unit/mL (3 mL) Inject 5 Units subcutaneously daily at bedtime. (Adjust as indicated) Needs 1 pen a month so please fill 3 pens per 3 months. Give 5 pens if not able to split the box metFORMIN ER (GLUCOPHAGE XR) 500 mg 24 hr tablet Take 4 tablets by mouth once daily. ramipril (ALTACE) 10 mg capsule Take 1 capsule by mouth once daily. blood sugar diagnostic (BozukoUCH ULTRA TEST) test strip Test blood sugar(s) 4 times daily. Dx: E11.65, DM. Insulin: Yes (Meals and bedtime--4 injections) ezetimibe (ZETIA) 10 mg tablet Take 1 tablet by mouth once daily. carvedilol (COREG) 12.5 mg tablet Take 1 tablet by mouth two times a day. docusate sodium (COLACE) 100 mg capsule Take 200 mg by mouth three times daily as needed for constipation. aspirin, enteric coated (ASPIRIN, ENTERIC COATED) 81 mg EC tablet Take 1 tablet by mouth twice daily. ascorbic acid, vitamin C, (VITAMIN C) 500 mg tablet Take 1 tablet by mouth twice daily with meals for 26 doses. Cholecalciferol, Vitamin D3, 125 mcg (5,000 unit) cap Take 1 capsule by mouth every other day. May switch to 2000 units daily insulin needles, DISPOSABLE, (PEN NEEDLE) 31 gauge x 5/16 ndle Use one needle per dose. 4 per day. No current facility-administered medications for this visit. Review of Systems Objective BP 124/62 (BP Site: Left Arm, BP Position: Sitting, BP Cuff Size: Large Adult) Pulse 89 Resp 16 Ht 171.5 cm (5' 7.5) Wt 101.7 kg (224 lb 3.3 oz) SpO2 98% BMI 34.60 kg/m? Physical Exam Vitals reviewed. Constitutional: Appearance: Normal appearance. Eyes: Conjunctiva/sclera: Conjunctivae normal. Cardiovascular: Rate and Rhythm: Normal rate and regular rhythm. Heart sounds: Normal heart sounds. Pulmonary: Effort: Pulmonary effort is normal. Breath sounds: Normal breath sounds. Musculoskeletal: Right lower leg: No edema. Left (more content not included)... Normal [facility] 25(OH)D3 [facility] 2023 25-hydroxyvitamin D3 [Mass/Vol] 54.8 ng/mL Normal 31.0-80.0 [facility] Comment on above: Order Comment: Speci men Type: BLOOD SPECIMENOrdering Facility: [facility] Address: [facility] [place] [address] Result Comment: Clas sification of 25 [place] Vitamin D status: Deficiency/Insufficiency: < or = 30 ng/ml. Sufficiency/Optimal Levels: 31-80 ng/mL Toxicity: > 100 ng/mL. Test performed by chemiluminescent immunoassay. Performed By: #### 1 989-3 ####[facility]IA [id number] [place] [address] [place] CBC W Auto Differential pane l (Bld)on 07-12-2024 Basophils (Bld) [#/Vol] 0.06 10*3/uL Normal <0.11 [facility] Comment on above: Order Comment: Speci men Type: BLOOD SPECIMEN Ordering Facility: [facility] Address: [address] [place] [address] Performed By: #### 2 4331-1, 11573-5 #### [facility] CLIA [id number] [address] [place] [address] [place] Basophils/100 WBC (Bld) 0.8 % Normal [facility] Comment on above: Order Comment: Speci men Type: BLOOD SPECIMEN Ordering Facility: [facility] Address: [address] [place] [address] Performed By: #### 2 4331-1, 71404-5 #### [facility] CLIA [id number] [address] [place] [address] [place] Differential cell count method Nom (Bld) Auto Normal [facility] Comment on above: Order Comment: Speci men Type: BLOOD SPECIMEN Ordering Facility: [facility] Address: [address] [place] [address] Performed By: #### 2 4331-1, 00794-9 #### [facility] CLIA [id number] [address] [place] [address] [place] Eosinophils (Bld) [#/Vol] 0.28 10*3/uL Normal <0.46 [facility] Comment on above: Order Comment: Speci men Type: BLOOD SPECIMEN Ordering Facility: [facility] Address: [address] [place] [address] Performed By: #### 2 4331-1, 01114-2 #### [facility] CLIA [id number] [address] [place] [address] [place] Eosinophils/100 WBC (Bld) 3.8 % Normal [facility] Comment on above: Order Comment: Speci men Type: BLOOD SPECIMEN Ordering Facility: [facility] Address: [address] [place] [address] Performed By: #### 2 4331-1, 81852-7 #### [facility] CLIA [id number] [address] [place] [address] [place] Erythrocyte distribution width (RBC) [Ratio] 12.9 % Normal 11.5-15.0 [facility] Comment on above: Order Comment: Speci men Type: BLOOD SPECIMEN Ordering Facility: [facility] Address: [address] [place] [address] Performed By: #### 2 4331-1, 97744-0 #### [facility] CLIA [id number] [address] [place] [address] [place] Hematocrit (Bld) [Volume fraction] 48.9 % Normal 39.0-51.0 [facility] Comment on above: Order Comment: Speci men Type: BLOOD SPECIMEN Ordering Facility: [facility] Address: [address] [place] [address] Performed By: #### 2 4331-1, 06737-9 #### [facility] CLIA [id number] [address] [place] [address] [place] Hemoglobin (Bld) [Mass/Vol] 16.4 g/dL Normal 13.0-17.0 [facility] Comment on above: Order Comment: Speci men Type: BLOOD SPECIMEN Ordering Facility: [facility] Address: [address] [place] [address] Performed By: #### 2 4331-1, 88608-8 #### [facility] CLIA [id number] [address] [place] [address] [place] Immature granulocytes (Bld) [#/Vol] 0.13 10*3/uL High <0.10 [facility] Comment on above: Order Comment: Speci men Type: BLOOD SPECIMEN Ordering Facility: [facility] Address: [address] [place] [address] Performed By: #### 2 4331-1, 86013-0 #### [facility] CLIA [id number] [address] [place] [address] [place] Immature granulocytes/100 WBC (Bld) 1.8 % Normal [facility] Comment on above: Order Comment: Speci men Type: BLOOD SPECIMEN Ordering Facility: [facility] Address: [address] [place] [address] Performed By: #### 2 4331-1, 86252-7 #### [facility] CLIA [id number] [address] [place] [address] [place] Lymphocytes (Bld) [#/Vol] 2.61 10*3/uL Normal 1.00-4.00 [facility] Comment on above: Order Comment: Speci men Type: BLOOD SPECIMEN Ordering Facility: [facility] Address: [address] [place] [address] Performed By: #### 2 4331-, 01606-1 #### [facility] CLIA [id number] [address] [place] [address] [place] Lymphocytes/100 WBC (Bld) 35.8 % Normal [facility] Comment on above: Order Comment: Speci men Type: BLOOD SPECIMEN Ordering Facility: [facility] Address: [address] [place] [address] Performed By: #### 2 4331-, 46213-4 #### [facility] CLIA [id number] [address] [place] [address] [place] MCH (RBC) [Entitic mass] 29.7 pg Normal 26.0-34.0 [facility] Comment on above: Order Comment: Speci men Type: BLOOD SPECIMEN Ordering Facility: [facility] Address: [address] [place] [address] Performed By: #### 2 4331-, 01578-2 #### [facility] CLIA [id number] [address] [place], [place] [id number] [place] MCHC (RBC) [Mass/Vol] 33.5 g/dL Normal 30.5-36.0 [facility] Comment on above: Order Comment: Speci men Type: BLOOD SPECIMEN Ordering Facility: [facility] Address: [address] [place] [address] Performed By: #### 2 4331-1, 87173-1 #### [facility] CLIA [id number] [address] [place] [address] [place] MCV (RBC) [Entitic vol] 88.4 fL Normal 80.0-100.0 [facility] Comment on above: Order Comment: Speci men Type: BLOOD SPECIMEN Ordering Facility: [facility] Address: [address] [place] [address] Performed By: #### 2 4331-1, 96155-3 #### [facility] CLIA [id number] [address] [place] [address] [place] Monocytes (Bld) [#/Vol] 0.51 10*3/uL Normal <0.87 [facility] Comment on above: Order Comment: Speci men Type: BLOOD SPECIMEN Ordering Facility: [facility] Address: [address] [place] [address] Performed By: #### 2 4331-1, #### [facility] CLIA [id number] [address] [place] [address] [place] Monocytes/100 WBC (Bld) 7.0 % Normal [facility] Comment on above: Order Comment: Speci men Type: BLOOD SPECIMEN Ordering Facility: [facility] Address: [address] [place] [address] Performed By: #### 2 4331-1, 51386-4 #### [facility] CLIA [id number] [address] [place] [address] [place] Neutrophils (Bld) [#/Vol] 3.70 10*3/uL Normal 1.45-7.50 [facility] Comment on above: Order Comment: Speci men Type: BLOOD SPECIMEN Ordering Facility: [facility] Address: [address] [place] [address] Performed By: #### 2 4331-1, 36314-4 #### [facility] CLIA [id number] [address] [place] [address] [place] Neutrophils/100 WBC (Bld) 50.8 % Normal [facility] Comment on above: Order Comment: Speci men Type: BLOOD SPECIMEN Ordering Facility: [facility] Address: [address] [place] [address] Performed By: #### 2 4331-1, 18975-8 #### [facility] CLIA [id number] [address] [place] [address] [place] Nucleated RBC (Bld) [#/Vol] 10*3/uL Normal <0.01 [facility] Comment on above: Order Comment: Speci men Type: BLOOD SPECIMEN Ordering Facility: [facility] Address: [address] [place] [address] Performed By: #### 2 4331-1, 87472-8 #### [facility] CLIA [id number] [address] [place] [address] [place] Nucleated RBC/100 WBC (Bld) [Ratio] 0.0 /100 WBC Normal [facility] Comment on above: Order Comment: Speci men Type: BLOOD SPECIMEN Ordering Facility: [facility] Address: [address] [place] [address] Performed By: #### 2 4331-1, 94128-5 #### [facility] CLIA [id number] [address] [place] [address] [place] Platelet mean volume (Bld) [Entitic vol] 9.2 fL Normal 9.0-12.7 [facility] Comment on above: Order Comment: Speci men Type: BLOOD SPECIMEN Ordering Facility: [facility] Address: [address] [place] [address] Performed By: #### 2 4331-1, 61943-9 #### [facility] CLIA [id number] [address] [place] [address] [place] Platelets (Bld) [#/Vol] 200 10*3/uL Normal 150-400 [facility] Comment on above: Order Comment: Speci men Type: BLOOD SPECIMEN Ordering Facility: [facility] Address: [address] [place] [address] Performed By: #### 2 4331-1, 80202-8 #### [facility] CLIA [id number] [address] [place] [address] [place] RBC (Bld) [#/Vol] 5.53 10*6/uL Normal 4.20-6.00 [facility] Comment on above: Order Comment: Speci men Type: BLOOD SPECIMEN Ordering Facility: [facility] Address: [address] [place] [address] Performed By: #### 2 4331-1, 42254-1 #### [facility] CLIA [id number] [address] [place] [address] [place] WBC (Bld) [#/Vol] 7.29 10*3/uL Normal 3.70-11.00 [facility] Comment on above: Order Comment: Speci men Type: BLOOD SPECIMEN Ordering Facility: [facility] Address: [address] [place] [address] Performed By: #### 2 4331-1, 18866-2 #### [facility] CLIA [id number] [address] [place] [address] [place] Comprehensive metabolic 2000 panelon 07-12-2024 Albumin [Mass/Vol] 4.5 g/dL Normal 3.9-4.9 [facility] Comment on above: Order Comment: Speci men Type: BLOOD SPECIMEN Ordering Facility: [facility] Address: [address] [id number] Performed By: #### 2 4331-1, 57773-4 #### [facility] CLIA [id number] [address] [place], [place] [id number] [place] ALP [Catalytic activity/Vol] 54 U/L Normal 38-113 [facility] Comment on above: Order Comment: Speci men Type: BLOOD SPECIMEN Ordering Facility: [facility] Address: [address] [place], [place] [address] Performed By: #### 2 4331-1, 41811-5 #### [facility] CLIA [id number] [address] [place] [address] [place] ALT [Catalytic activity/Vol] 9 U/L Low 10-54 [facility] Comment on above: Order Comment: Speci men Type: BLOOD SPECIMEN Ordering Facility: [facility] Address: [address] [place], [place] [id number] Performed By: #### 2 4331-1, 78492-9 #### [facility] CLIA [id number] [address] [place] [address] [place] Anion gap [Moles/Vol] 11 mmol/L Normal 8-15 [facility] Comment on above: Order Comment: Speci men Type: BLOOD SPECIMEN Ordering Facility: [facility] Address: [address] [place], [place] [address] Performed By: #### 2 4331-1, 48897-2 #### [facility] CLIA [id number] [address] [place] [address] [place] AST [Catalytic activity/Vol] 15 U/L Normal 14-40 [facility] Comment on above: Order Comment: Speci men Type: BLOOD SPECIMEN Ordering Facility: [facility] Address: [address] [place], [place] [address] Performed By: #### 2 4331-1, 12286-1 #### [facility] CLIA [id number] [address] [id number] [place] Bilirubin [Mass/Vol] 0.5 mg/dL Normal 0.2-1.3 [facility] Comment on above: Order Comment: Speci men Type: BLOOD SPECIMEN Ordering Facility: [facility] Address: [address] [place] [address] Performed By: #### 2 4331-1, #### [facility] CLIA [id number] [address] [place] [address] [place] Calcium [Mass/Vol] 9.6 mg/dL Normal 8.5-10.2 [facility] Comment on above: Order Comment: Speci men Type: BLOOD SPECIMEN Ordering Facility: [facility] Address: [address] [place] [address] Performed By: #### 2 4331-1, #### [facility] CLIA [id number] [address] [place] [address] [place] Chloride [Moles/Vol] 97 mmol/L Low 98-107 [facility] Comment on above: Order Comment: Speci men Type: BLOOD SPECIMEN Ordering Facility: [facility] Address: [address] [place] [address] Performed By: #### 2 4331-1, #### [facility] CLIA [id number] [address] [place] [address] [place] CO2 [Moles/Vol] 26 mmol/L Normal 22-30 [facility] Comment on above: Order Comment: Speci men Type: BLOOD SPECIMEN Ordering Facility: [facility] Address: [address] [place] [address] Performed By: #### 2 4331-1, #### [facility] CLIA [id number] [address] [place] [id number] [address] [place] Creatinine [Mass/Vol] 1.24 mg/dL High 0.73-1.22 [facility] Comment on above: Order Comment: Wilma peña Type: BLOOD SPECIMEN Ordering Facility: [facility] Address: [address] [place] [address] Performed By: #### 2 4331-1, 28005-1 #### [facility] CLIA [id number] [address] [place] [address] [place] Creatinine and Glomerular filtration rate.predicted panel (S/P/Bld) 61 mL/min/1.73m??? Normal >=60 [facility] Comment on above: Order Comment: Wilma peña Type: BLOOD SPECIMEN Ordering Facility: [facility] Address: [address] [place] [address] Result Comment: Summer mated Glomerular Filtration Rate (eGFR) is calculated using the 2020 CKD-EPI creatinine equation. This equation utilizes serum creatinine, sex, and age as parameters. The creatinine assay has traceable calibration to isotope dilution-mass spectrometry. Refer to KDIGO guidelines for clinical interpretation. In patients with unstable renal function, e.g. those with acute kidney injury, the eGFR may not accurately reflect actual GFR. Performed By: #### 2 4331-1, 81265-4 #### [facility] CLIA [id number] [address] [place] [address] [place] Glucose [Mass/Vol] 128 mg/dL High 74-99 [facility] Comment on above: Order Comment: Wilma peña Type: BLOOD SPECIMEN Ordering Facility: [facility] Address: [address] [place] [address] Result Comment: The [place] Diabetes Association (ADA) provides guidance for cutoff values for fasting glucose and random glucose. The ADA defines fasting as no caloric intake for at least 8 hours. Fasting plasma glucose results between 100 to 125 mg/dL indicate increased risk for diabetes (prediabetes). Fasting plasma glucose results greater than or equal to 126 mg/dL meet the criteria for diagnosis of diabetes. In the absence of unequivocal hyperglycemia, results should be confirmed by repeat testing. In a patient with classic symptoms of hyperglycemia or hyperglycemic crisis, random plasma glucose results greater than or equal to 200 mg/dL meet the criteria for diagnosis of diabetes. Reference: Standards of Medical Care in Diabetes 2016, [place] Diabetes Association. Diabetes Care. 2016.39(Suppl 1). Performed By: #### 2 4331-1, #### [facility] CLIA [id number] [address] [place] [address] [place] Potassium [Moles/Vol] 5.1 mmol/L Normal 3.7-5.1 [facility] Comment on above: Order Comment: Speci men Type: BLOOD SPECIMEN Ordering Facility: [facility] Address: [address] [place] [address] Performed By: #### 2 4331-1, #### [facility] CLIA [id number] [address] [place] [address] [place] Protein [Mass/Vol] 6.4 g/dL Normal 6.3-8.0 [facility] Comment on above: Order Comment: Speci men Type: BLOOD SPECIMEN Ordering Facility: [facility] Address: [address] [place] [address] Performed By: #### 2 4331-, #### [facility] CLIA [id number] [address] [place] [address] [place] Sodium [Moles/Vol] 134 mmol/L Low 136-144 [facility] Comment on above: Order Comment: Speci men Type: BLOOD SPECIMEN Ordering Facility: [facility] Address: [address] [place] [address] Performed By: #### 2 4331-1, #### [facility] CLIA [id number] [address] [place] [address] [place] Urea nitrogen [Mass/Vol] 25 mg/dL High 9-24 [facility] Comment on above: Order Comment: Speci men Type: BLOOD SPECIMEN Ordering Facility: [facility] Address: [address] [place] [address] Performed By: #### 2 4331-1, 33664-6 #### [facility] CLIA [id number] [address] [place] [address] [place] HbA1c (Bld)on 07-12-2024 Average glucose Estimated from glycated hemoglobin (Bld) [Mass/Vol] 120 mg/dL Normal [facility] Comment on above: Order Comment: Wilma peña Type: BLOOD SPECIMEN Ordering Facility: [facility] Address: [address] [place] [address] Result Comment: eAG: (Estimated average glucose) is a calculated value from HgbA1c and is sales representative rural power of the average blood glucose level in the last 2-3 month period. Performed By: #### 5 5454-3 #### [facility] CLIA [id number] [address] [place] [address] [place] HbA1c (Bld) [Mass fraction] 5.8 % High 4.3-5.6 [facility] Comment on above: Order Comment: Wilma peña Type: BLOOD SPECIMEN Ordering Facility: [facility] Address: [address] [place] [address] Result Comment: [place] Diabetes Association guidelines indicate that patients with HgbA1c in the range 5.7-6.4% are at increased risk for development of diabetes, and intervention by lifestyle modification may be beneficial. HgbA1c greater or equal to 6.5% is considered diagnostic of diabetes. Performed By: #### 5 5454-3 #### [facility] CLIA [id number] [address] [place] [address] [place] Lipid 1996 panelon 4 Cholesterol [Mass/Vol] 200 mg/dL High <200 [facility] Comment on above: Order Comment: Wilma peña Type: BLOOD SPECIMEN Ordering Facility: [facility] Address: [address] [place] [address] Result Comment: <200 mg/dL, Desirable 200-239 mg/dL, Borderline high >239 mg/dL, High Performed By: #### 2 4331-1, 11906-3 #### [facility] CLIA [id number] [address] [place] [address] [place] Cholesterol in HDL [Mass/Vol] 53 mg/dL Normal >39 [facility] Comment on above: Order Comment: Wilma peña Type: BLOOD SPECIMEN Ordering Facility: [facility] Address: [address] [place] [address] Result Comment: 40-5 9 mg/dL, Acceptable >59 mg/dL, High: Negative risk factor for coronary heart disease <40 mg/dL, Low: Positive risk factor for coronary heart disease Performed By: #### 2 4331-1, 99410-7 #### [facility] CLIA [id number] [address] [place] [address] [place] Cholesterol in LDL [Mass/Vol] 128 mg/dL High <100 [facility] Comment on above: Order Comment: Wilma peña Type: BLOOD SPECIMEN Ordering Facility: [facility] Address: [address] [place] [address] Result Comment: <100 mg/dL, Optimal 100-129 mg/dL, Near optimal/above optimal 130-159 mg/dL, Borderline high 160-189 mg/dL, High >189 mg/dL, Very high Secondary prevention optimal LDL Cholesterol levels are recommended to be < 70 mg/dL Performed By: #### 2 4331-1, 46524-5 #### [facility] CLIA [id number] [address] [place] [address] [place] Cholesterol in LDL/Cholesterol in HDL [Mass ratio] 2.42 {ratio} Normal <2.54 [facility] Comment on above: Order Comment: Wilma peña Type: BLOOD SPECIMEN Ordering Facility: [facility] Address: [address] [place] [address] Result Comment: Prisca cintron: 1. National Cholesterol Education Program ATP III Guideline At-A-Glance Quick Desk Reference: National Heart, Lung, and Blood [place]. National Institutes of Health. 2001: NIH Publication No. 01-3305. 2. An International Atherosclerosis Society position paper: global recommendations for the management of dyslipidemia: executive summary, Atherosclerosis. 2014: 232(2):410-413. Performed By: #### 2 4331-1, #### [facility] CLIA [id number] [address] [place] [address] [place] Cholesterol in VLDL [Mass/Vol] 19 mg/dL Normal <30 [facility] Comment on above: Order Comment: Speci men Type: BLOOD SPECIMEN Ordering Facility: [facility] Address: [address] [place] [address] Performed By: #### 2 4331-1, #### [facility] CLIA [id number] [address] [place] [address] [place] Cholesterol non HDL [Mass/Vol] 147 mg/dL High <130 [facility] Comment on above: Order Comment: Wilma men Type: BLOOD SPECIMEN Ordering Facility: [facility] Address: [address] [place] [address] Result Comment: <130 mg/dL, Optimal 130-159 mg/dL, Near optimal/above optimal 160-189 mg/dL, Borderline high 190-219 mg/dL, High >219 mg/dL, Very high Secondary prevention optimal non HDL Cholesterol levels are recommended to be <100 mg/dL Performed By: #### 2 4331-1, #### [facility] CLIA [id number] [address] [place] [address] [place] Cholesterol.total/Cho lesterol in HDL [Mass ratio] 3.77 {ratio} Normal <5.10 [facility] Comment on above: Order Comment: Sudhiri men Type: BLOOD SPECIMEN Ordering Facility: [facility] Address: [address] [place] [address] Performed By: #### 2 4331-1, #### [facility] CLIA [id number] [address] [place] [address] [place] FASTING TIME 12 hrs Normal [facility] Comment on above: Order Comment: Speci men Type: BLOOD SPECIMEN Ordering Facility: [facility] Address: [address] [place] [address] Performed By: #### 2 4331-1, 55411-3 #### [facility] CLIA [id number] [address] [place], [place] [address] [place] [address] [place] Triglyceride [Mass/Vol] 96 mg/dL Normal <150 [facility] Comment on above: Order Comment: Wilma peña Type: BLOOD SPECIMEN Ordering Facility: [facility] Address: [address] [place] [address] Result Comment: <150 mg/dL, Normal 150-199 mg/dL, Borderline high 200-499 mg/dL, High >499 mg/dL, Very high Performed By: #### 2 4331-1, 39482-3 #### [facility] CLIA [id number] [address] [place] [address] [place] Cardiology Visit Reporton Cardiology Visit Report [facility] [address] [place], [place] [address] OFFICE VISIT Date of Service: 05/13/24 MR#: [id number] Acct: [id number] Name: KENDRICK BARRAZA Rep #: [id number] : 1950 Provider: Dr. Rhys webster MD Age/Sex: 73/M [place] [facility] [place] Status: Signed [facility] History of Present Illness Details: Kendrick Barraza is a 73 year-old white male who presents to the office today for a cardiovascular follow- up visit. Patient has a history of known coronary disease status post percutaneous revascularization April 2020. And history of an ischemic dilated cardiomyopathy EF at 1 point time was in the 45% range. Last echocardiogram January 09, 2023 showed normal LV for size with an EF of 55% there was inferior basilar hypokinesis. He has a history of remote CLL most recent blood count and October 2023 showed a white count of 10.8. He is considered cured by the oncologist he originally presented in 2011. The patient has a history of diabetes mellitus reports that his hemoglobin A1c is 6.1. His lipids are managed through the [facility] services as well as his hypertension. The patient's anginal equivalent was a marked drop-off in his exercise tolerance and loss of energy. This occurred prior to a hip surgery which precipitated stress test which showed significant ischemia and he underwent coronary intervention. 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 Required: No Accompanied by: Self Is patient in pain?: No Allergies atorvastatin (From Lipitor) Allergy (Severe, Verified 05/13/24 13:05) Other pravastatin (From Pravachol) Allergy (Severe, Verified 05/13/24 13:05) Other rosuvastatin (From Crestor) Allergy (Severe, Verified 05/13/24 13:05) Other Hgfttuv-NLG-KnC Reductase Inhibitor (Dubmgnl-Noj-Utw Reductase Inhibitor) Allergy (Severe, Verified 05/13/24 13:05) Other ciprofloxacin Adverse Reaction (Severe, Verified 05/13/24 13:05) dizziness, vomiting Medications ???Medication ???Instructions ???Recorded ???Confirmed ???Type aspirin 81 mg chewable tablet 81 mg PO DAILY@0800 ##0 11/03/16 05/13/24 Rx carvedilol 12.5 mg tablet 12.5 mg PO BID 11/03/16 05/13/24 Rx ezetimibe 10 mg tablet (Zetia) 10 mg PO DAILY cholesterol 06/14/19 05/13/24 History metformin 500 mg tablet 2,000 mg PO DAILY 06/14/19 05/13/24 History (Glucophage) ramipril 10 mg capsule 10 mg PO DAILY 06/14/21 05/13/24 History insulin glargine 100 unit/mL (3 8 unit subcut QHS PRN SLIDING SCALE 01/24/22 05/13/24 History mL) subcutaneous pen cholecalciferol (vitamin D3) 125 125 mcg PO .QOD 12/26/22 05/13/24 History mcg (5,000 unit) capsule insulin aspart U-100 100 unit/mL 1 unit subcut QAC PRN SLIDING SCALE 12/26/22 05/13/24 History (3 mL) subcutaneous pen acetaminophen 325 mg tablet 650 mg (2 x 325 mg) PO Q4H PRN PRN 06/11/23 05/13/24 Rx Pain Or Fever #0 tabs docusate sodium 100 mg capsule 100 mg PO BID constipation 05/13/24 05/13/24 History (Colace) Ejection fraction %: 55 Have you fallen in the past year?: No PFSH Medical History Wears glasses Ambulates with cane Insulin dependent diabetes mellitus Prostate disease Arthritis Back pain Dietary restriction Heartburn Non-smoker Leg cramps History of pain when walking History of echocardiogram History of stress test Cardiology follow-up encounter History of heart attack Syncope CVA (cerebral vascular accident) Stenosis of right carotid artery Mixed hyperlipidemia History of pleural effusion Essential hypertension Presence of stent in coronary artery ( 05/04/20) Atherosclerotic heart disease of [place] coronary artery without angina pectoris Blood in the urine Morbid obesity Left pontine stroke DM2 (diabetes mellitus, type 2) Chronic systolic CHF (congestive heart failure) Altered mental status CLL (chronic lymphocytic leukemia) Surgical History S/P inguinal hernia repair History of cardiac catheterization Hx of colonoscopy History of cystoscopy History of left hip replacement ( 10/2021) History of bilateral cataract extraction Presence of coronary angioplasty implant and graft ( 02/20/13) Family History ... Normal [facility] Absolute lymphocyte countOrd ered By: Ye Torres on 11-14-2023 Lymphocytes Auto (Unsp spec) [#/Vol] 2.04 10*3/uL 0.83-4.51 [facility] Activated partial thrombopla stin time (aPTT) in platelet poor plasma by coagulation aOrdered By: Ye Torres on 11-14-2023 aPTT Coag (PPP) [Time] 23.8 s 24.1-36.2 [facility] Automated lymphocyte count a s percentage of total leukocytesOrdered By: Ye Torres on 11-14-2023 Lymphocytes/100 WBC Auto (Unsp spec) 17.2 % 19-41 [facility] Basophil percentageOrdered B y: Ye Torres on 11-14-2023 Basophils/100 WBC (Bld) 0.2 % 0-1 [facility] Chloride [Moles/Vol] 107 mmol/L 98-107 [facility] Eosinophils/100 WBC (Bld) 0.3 % 0-5 [facility] Glucose [Mass/Vol] 185 mg/dL 74-106 [facility] Comment on above: Fasting Glucose resu lt greater than or equal to 126 mg/dL suggests DIABETES MELLITUS per A.D.A. criteria. Hemoglobin (Bld) [Mass/Vol] 16.7 g/dL 13.0-16.5 [facility] Monocytes/100 WBC (Bld) 6.1 % 0-10 [facility] Neutrophils (Bld) [#/Vol] 9.0 10*3/uL 2.0-7.7 [facility] Neutrophils/100 WBC (Bld) 75.6 % 47-70 [facility] Potassium [Moles/Vol] 4.4 mmol/L 3.5-5.1 [facility] Sodium [Moles/Vol] 137 mmol/L 136-145 [facility] WBC (Bld) [#/Vol] 11.8 10*3/uL 4.4-11.0 [facility] Determination of erythrocyte mean corpuscular volume (MCV)Ordered By: Ye Torres on 11-14-2023 MCV (RBC) [Entitic vol] 90.4 fL 80-94 [facility] Erythrocyte distribution wid th ratioOrdered By: Yefelicity Torres on 11-14-2023 Erythrocyte distribution width (RBC) [Ratio] 12.5 % 11.6-14.6 [facility] Erythrocyte distribution wid th standard deviationOrdered By: Ye Torres on 11-14-2023 Erythrocyte distribution width (RBC) [Entitic vol] 41.2 fL 35.1-43.9 [facility] Hematocrit Auto (Bld) [Volum e fraction]Ordered By: Ye Torres on 11-14-2023 Hematocrit (Bld) [Volume fraction] 48.2 % 40-54 [facility] Immature granulocytes/100 WB C Auto (Bld)Ordered By: Ye Torres on 11-14-2023 Immature granulocytes/100 WBC (Bld) 0.600 % 0.0-0.9 [facility] Comment on above: IG% - Immature Granu locytes (promyelocytes, myelocytes and metamyelocytes) > 1% indicates that a LEFT SHIFT is Present. Laboratory - Chemistry and C hemistry - challengeOrdered By: Ye Torres on 11-14-2023 CO2 [Moles/Vol] 24.0 mmol/L 21.0-32.0 [facility] Urea nitrogen/Creatinine [Mass ratio] 22.6 mg/mg 10-20 [facility] Laboratory - CoagulationOrde red By: Ye Torres on 11-14-2023 INR Coag (Bld) [Relative time] 1.0 {INR} [facility] PT Coag (PPP) [Time] 12.8 s 11.7-14.9 [facility] Laboratory - Hematology and Cell countsOrdered By: Ye Torres on 11-14-2023 MCH (RBC) [Entitic mass] 31.3 pg 27.0-32.0 [facility] MCHC (RBC) [Mass/Vol] 34.6 g/dL 32-36 [facility] Nucleated RBC/100 WBC (Bld) [Ratio] 0 % 0-5 [facility] Platelet mean volume (Bld) [Entitic vol] 9.0 fL 6.2-12.0 [facility] Platelets (Bld) [#/Vol] 161 10*3/uL 150-450 [facility] No Panel InformationOrdered By: Ye Torres on 11-14-2023 Estimated Creatinine Clearance Calc 72.83 ml/min [facility] Estimated GFR (MDRD) Amer 88 mL/min >60 [facility] Comment on above: GFR Calc Estimated GFR (MDRD) Non-Af Amer 73 mL/min >60 [facility] Comment on above: Non- GFR Calc RBC Auto (Bld) [#/Vol]Ordere d By: Ye Torres on 11-14-2023 RBC (Bld) [#/Vol] 5.33 10*6/uL 4.6-6.2 [facility] Serum or plasma calcium lázaro urement (mass/volume)Ordered By: Ye Torres on 11-14-2023 Calcium [Mass/Vol] 8.9 mg/dL 8.5-10.1 [facility] Serum or plasma creatinine m easurement (mass/volume)Ordered By: Ye Torres on 11-14-2023 Creatinine [Mass/Vol] 1.06 mg/dL 0.70-1.30 [facility] Comment on above: The validity of the calculated GFR & GFRAA in patients over 70 years has not been determined. Clinical correlation is essential. Serum or plasma urea nitroge n measurement (mass/volume)Ordered By: Ye Torres on 11-14-2023 Urea nitrogen [Mass/Vol] 24 mg/dL 7-18 [facility] Thin prep Papanicolaou smear with manual screeningOrdered By: Ye Torres on 11-14-2023 Thin prep Papanicolaou smear with manual screening 6 5-15 [facility] Absolute lymphocyte countOrd ered By: Aileen Roper on 10-06-2023 Lymphocytes Auto (Unsp spec) [#/Vol] 3.01 10*3/uL 0.83-4.51 [facility] Automated lymphocyte count a s percentage of total leukocytesOrdered By: Aileen Roper on 10-06-2023 Lymphocytes/100 WBC Auto (Unsp spec) 29.4 % 19-41 [facility] Basophil percentageOrdered B y: Aileen Roper on 10-06-2023 Basophils/100 WBC (Bld) 0.8 % 0-1 [facility] Bilirubin [Mass/Vol] 0.80 mg/dL 0.20-1.00 [facility] Comment on above: For patients on eltr ombopag therapy, use of [place] TBIL is not recommended. Chloride [Moles/Vol] 105 mmol/L 98-107 [facility] Eosinophils/100 WBC (Bld) 3.2 % 0-5 [facility] Glucose [Mass/Vol] 110 mg/dL 74-106 [facility] [place] Comment on above: Fasting Glucose resu lt from 100 to 125 mg/dL suggests IMPAIRED HOMEOSTASIS per A.D.A. criteria. Hemoglobin (Bld) [Mass/Vol] 17.0 g/dL 13.0-16.5 [facility] Monocytes/100 WBC (Bld) 5.4 % 0-10 [facility] Neutrophils (Bld) [#/Vol] 6.2 10*3/uL 2.0-7.7 [facility] Neutrophils/100 WBC (Bld) 60.5 % 47-70 [facility] Potassium [Moles/Vol] 4.2 mmol/L 3.5-5.1 [facility] Protein [Mass/Vol] 7.0 g/dL 6.4-8.2 [facility] Sodium [Moles/Vol] 138 mmol/L 136-145 [facility] WBC (Bld) [#/Vol] 10.3 10*3/uL 4.4-11.0 [facility] Determination of erythrocyte mean corpuscular volume (MCV)Ordered By: Aileen Roper on 10-06-2023 MCV (RBC) [Entitic vol] 92.2 fL 80-94 [facility] Direct bilirubinOrdered By: Aileen Roper on 10-06-2023 Bilirubin.direct [Mass/Vol] 0.21 mg/dL 0.00-0.30 [facility] Erythrocyte distribution wid th ratioOrdered By: Aileen Roper on 10-06-2023 Erythrocyte distribution width (RBC) [Ratio] 12.8 % 11.6-14.6 [facility] Erythrocyte distribution wid th standard deviationOrdered By: Aileen Roper on 10-06-2023 Erythrocyte distribution width (RBC) [Entitic vol] 43.2 fL 35.1-43.9 [facility] Hematocrit Auto (Bld) [Volum e fraction]Ordered By: Aileen Roper on 10-06-2023 Hematocrit (Bld) [Volume fraction] 50.7 % 40-54 [facility] Immature granulocytes/100 WB C Auto (Bld)Ordered By: Aileen Roper on 10-06-2023 Immature granulocytes/100 WBC (Bld) 0.700 % 0.0-0.9 [facility] Comment on above: IG% - Immature Granu locytes (promyelocytes, myelocytes and metamyelocytes) > 1% indicates that a LEFT SHIFT is Present. Laboratory - Chemistry and C hemistry - challengeOrdered By: Aileen Roper on 10-06-2023 ALP [Catalytic activity/Vol] 42 U/L 45-117 [facility] ALT [Catalytic activity/Vol] 14 U/L 16-61 [facility] CO2 [Moles/Vol] 27.0 mmol/L 21.0-32.0 [facility] Globulin (S) [Mass/Vol] 2.7 g/dL 2.2-4.2 [facility] Lipase [Catalytic activity/Vol] 129 U/L 13-75 [facility] Comment on above: Please note:LIPASE r evised reference range effective 22. New Lipase methodology. Expected to produce lower values than the previous assay method. NEW Reference Range: 13 - 75 U/L Urea nitrogen/Creatinine [Mass ratio] 17.1 mg/mg 10-20 [facility] Laboratory - Hematology and Cell countsOrdered By: Aileen Roper on 10-06-2023 MCH (RBC) [Entitic mass] 30.9 pg 27.0-32.0 [facility] MCHC (RBC) [Mass/Vol] 33.5 g/dL 32-36 [facility] Nucleated RBC/100 WBC (Bld) [Ratio] 0 % 0-5 [facility] Platelet mean volume (Bld) [Entitic vol] 9.8 fL 6.2-12.0 [facility] Platelets (Bld) [#/Vol] 209 10*3/uL 150-450 [facility] No Panel InformationOrdered By: Aileen Roper on 10-06-2023 Troponin I High Sensitivity 8 pg/mL 3.0-78.0 [facility] Comment on above: Please Note: [place] t Units and Gender Specific Reference Ranges. For more information see Policy Stat Procedure [place] High Sensitivity Troponin (TNIH) and attachments. Estimated Creatinine Clearance Calc 71.70 ml/min [facility] Estimated GFR (MDRD) Amer 89 mL/min >60 [facility] Comment on above: GFR Calc Estimated GFR (MDRD) Non-Af Amer 73 mL/min >60 [facility] Comment on above: Non- GFR Calc RBC Auto (Bld) [#/Vol]Ordere d By: Aileen Roper on 10-06-2023 RBC (Bld) [#/Vol] 5.50 10*6/uL 4.6-6.2 [facility] Serum or plasma calcium lázaro urement (mass/volume)Ordered By: Aileen Roper on 10-06-2023 Calcium [Mass/Vol] 9.5 mg/dL 8.5-10.1 [facility] [place] Serum or plasma creatinine m easurement (mass/volume)Ordered By: Aileen Roper on 10-06-2023 Creatinine [Mass/Vol] 1.05 mg/dL 0.70-1.30 [facility] Comment on above: The validity of the calculated GFR & GFRAA in patients over 70 years has not been determined. Clinical correlation is essential. Serum or plasma thyroid stim ulating hormone (TSH) measurement (units/volume)Ordered By: Aileen Roper on 10-06-2023 TSH Qn 1.98 uIU/mL 0.358-3.74 [facility] Serum or plasma urea nitroge n measurement (mass/volume)Ordered By: Aileen Roper on 10-06-2023 Urea nitrogen [Mass/Vol] 18 mg/dL 7-18 [facility] Thin prep Papanicolaou smear with manual screeningOrdered By: Aileen Roper on 10-06-2023 Thin prep Papanicolaou smear with manual screening 4.3 g/dL 3.2-5.0 [facility] Thin prep Papanicolaou smear with manual screening 11 U/L 15-37 [facility] Thin prep Papanicolaou smear with manual screening 6 5-15 [facility] Glucose Glucometer (BldC) [M ass/Vol]Ordered By: Shon Mcadams on 06-11-2023 Glucose [Mass/Vol] 180 mg/dL 74-106 [facility] Comment on above: MANAGEMENT OF PATIEN T CARE PER NURSING PROTOCOL Whole blood hemoglobin A1c/t otal hemoglobin ratio (mass fraction)Ordered By: Ye Weldon on 06-11-2023 HbA1c (Bld) [Mass fraction] 6.1 % 3.8-5.6 [facility] Comment on above: Normal < 5.7 % Predi abetic 5.7 - 6.4 % Diabetic >or= 6.5 % Please note range changes. Absolute lymphocyte countOrd ered By: Maxime Mistry on 04-24-2023 Lymphocytes Auto (Unsp spec) [#/Vol] 2.06 10*3/uL 0.83-4.51 [facility] Basophil percentageOrdered B y: Maxime Mistry on 04-24-2023 Basophil percentage 0 SEEN /hpf 0-5 [facility] Basophils/100 WBC (Bld) 0.6 % 0-1 [facility] Bilirubin [Mass/Vol] 0.70 mg/dL 0.20-1.00 [facility] Comment on above: For patients on eltr ombopag therapy, use of [place] TBIL is not recommended. Chloride [Moles/Vol] 101 mmol/L 98-107 [facility] Eosinophils/100 WBC (Bld) 3.9 % 0-5 [facility] Glucose [Mass/Vol] 108 mg/dL 74-106 [facility] [place] Comment on above: Fasting Glucose resu lt from 100 to 125 mg/dL suggests IMPAIRED HOMEOSTASIS per A.D.A. criteria. Neutrophils (Bld) [#/Vol] 4.3 10*3/uL 2.0-7.7 [facility] Neutrophils/100 WBC (Bld) 59.1 % 47-70 [facility] Potassium [Moles/Vol] 4.6 mmol/L 3.5-5.1 [facility] Protein [Mass/Vol] 6.5 g/dL 6.4-8.2 [facility] [place] Sodium [Moles/Vol] 135 mmol/L 136-145 [facility] [place] WBC (Bld) [#/Vol] 7.3 10*3/uL 4.4-11.0 [facility] [place] Bilirubin Test strip Ql (U)O rdered By: Maxime Mistry on 04-24-2023 Bilirubin Ql (U) Negative Negative [facility] Blood erythrocytes count (nu mber/volume)Ordered By: Maxime Mistry on 04-24-2023 RBC (Bld) [#/Vol] 5.19 10*6/uL 4.6-6.2 [facility] Blood hemoglobin measurement (mass/volume)Ordered By: Maxime Mistry on 04-24-2023 Hemoglobin (Bld) [Mass/Vol] 16.0 g/dL 13.0-16.5 [facility] Blood lymphocytes/100 leukoc ytesOrdered By: Maxime Mistry on 04-24-2023 Lymphocytes/100 WBC (Bld) 28.3 % 19-41 [facility] Blood monocytes/100 leukocyt esOrdered By: Maxime Mistry on 04-24-2023 Monocytes/100 WBC (Bld) 7.0 % 0-10 [facility] Blood platelet mean volumeOr dered By: Maxime Mistry on 04-24-2023 Platelet mean volume (Bld) [Entitic vol] 8.9 fL 6.2-12.0 [facility] Determination of erythrocyte mean corpuscular volume (MCV)Ordered By: Maxime Mistry on 04-24-2023 MCV (RBC) [Entitic vol] 91.5 fL 80-94 [facility] Glucose Glucometer (dC) [M ass/Vol]Ordered By: Maxime Mistry on 04-24-2023 Glucose [Mass/Vol] 113 mg/dL 74-106 [facility] [place] Comment on above: MANAGEMENT OF PATIEN T CARE PER NURSING PROTOCOL Hematocrit Auto (Bld) [Volum e fraction]Ordered By: Maxime Mistry on 04-24-2023 Hematocrit (Bld) [Volume fraction] 47.5 % 40-54 [facility] Ketones Test strip Ql (U)Ord ered By: Maxime Mistry on 04-24-2023 Ketones Ql (U) Negative Negative [facility] Laboratory - Chemistry and C hemistry - challengeOrdered By: Maxime Mistry on 04-24-2023 ALP [Catalytic activity/Vol] 46 U/L 45-117 [facility] ALT [Catalytic activity/Vol] 12 U/L 16-61 [facility] CO2 [Moles/Vol] 30.0 mmol/L 21.0-32.0 [facility] Globulin (S) [Mass/Vol] 2.8 g/dL 2.2-4.2 [facility] Lipase [Catalytic activity/Vol] 91 U/L 13-75 [facility] Comment on above: Please note:LIPASE r evised reference range effective 22. New Lipase methodology. Expected to produce lower values than the previous assay method. NEW Reference Range: 13 - 75 U/L Urea nitrogen/Creatinine [Mass ratio] 14.4 mg/mg 10-20 [facility] Laboratory - Hematology and Cell countsOrdered By: Maxime Mistyr on 04-24-2023 Erythrocyte distribution width (RBC) [Entitic vol] 41.9 fL 35.1-43.9 [facility] Erythrocyte distribution width (RBC) [Ratio] 12.4 % 11.6-14.6 [facility] Immature granulocytes/100 WBC (Bld) 1.100 % 0.0-0.9 [facility] Comment on above: IG% - Immature Granu locytes (promyelocytes, myelocytes and metamyelocytes) > 1% indicates that a LEFT SHIFT is Present. MCH (RBC) [Entitic mass] 30.8 pg 27.0-32.0 [facility] Nucleated RBC/100 WBC (Bld) [Ratio] 0 % 0-5 [facility] MCHC Auto (RBC) [Mass/Vol]Or dered By: Maxime Mistry on 04-24-2023 MCHC (RBC) [Mass/Vol] 33.7 g/dL 32-36 [facility] Mucus LM Ql (Urine sed)Order ed By: Maxime Mistry on 04-24-2023 Mucus Ql (Urine sed) 0 SEEN /hpf [facility] Nitrite Test strip Ql (U)Ord ered By: Maxime Mistry on 04-24-2023 Nitrite Ql (U) Negative Negative [facility] No Panel InformationOrdered By: Maxime Mistry on 04-24-2023 Troponin I High Sensitivity 45 pg/mL 3.0-78.0 [facility] Comment on above: Please Note: [place] t Units and Gender Specific Reference Ranges. For more information see Policy Stat Procedure [place] High Sensitivity Troponin (TNIH) and attachments. Estimated Creatinine Clearance Calc 52.63 ml/min [facility] Estimated GFR (MDRD) Amer 73 mL/min >60 [facility] Comment on above: GFR Calc Estimated GFR (MDRD) Non-Af Amer 60 mL/min >60 [facility] Comment on above: Non- GFR Calc Platelets bldOrdered By: Tate Mistry on 04-24-2023 Platelets (Bld) [#/Vol] 203 10*3/uL 150-450 [facility] Protein Test strip Ql (U)Ord ered By: Maxime Mistry on 04-24-2023 Protein Ql (U) 15 mg/dl Negative [facility] Serum or plasma albumin lázaro urement (mass/volume)Ordered By: Maxime Mistry on 04-24-2023 Albumin [Mass/Vol] 3.7 g/dL 3.2-5.0 [facility] Serum or plasma albumin/glob ulin mass ratioOrdered By: Maxime Mistry on 04-24-2023 Albumin/Globulin [Mass ratio] 1.3 {ratio} 0.9-2.4 [facility] Serum or plasma calcium lázaro urement (mass/volume)Ordered By: Maxime Mistry on 04-24-2023 Calcium [Mass/Vol] 9.0 mg/dL 8.5-10.1 [facility] [place] Serum or plasma creatinine m easurement (mass/volume)Ordered By: Maxime Mistry on 04-24-2023 Creatinine [Mass/Vol] 1.25 mg/dL 0.70-1.30 [facility] Comment on above: The validity of the calculated GFR & GFRAA in patients over 70 years has not been determined. Clinical correlation is essential. Serum or plasma urea nitroge n measurement (mass/volume)Ordered By: Maxime Mistry on 04-24-2023 Urea nitrogen [Mass/Vol] 18 mg/dL 7-18 [facility] Squamous epithelial cells de tection in urine sediment by light microscopyOrdered By: Maxime Mistry on 04-24-2023 Epithelial cells.squamous LM Ql (Urine sed) 0 SEEN /hpf 0-5 [facility] Thin prep Papanicolaou smear with manual screeningOrdered By: Maxime Mistry on 04-24-2023 Thin prep Papanicolaou smear with manual screening 7 U/L 15-37 [facility] Thin prep Papanicolaou smear with manual screening 4 5-15 [facility] Urine blood detectionOrdered By: Maxime Mistry on 04-24-2023 RBC Ql (U) Negative Negative [facility] RBC Ql (U) 0 SEEN /hpf 0-5 [facility] Urine clarityOrdered By: Tate Mistry on 04-24-2023 Clarity (U) Sl. Cloudy Clear [facility] Urine color determinationOrd ered By: Maxime Mistry on 04-24-2023 Color (U) Yellow Yellow [facility] Urine glucose detectionOrder ed By: Maxime Mistry on 04-24-2023 Glucose Ql (U) Normal mg/dl Normal [facility] Urine leukocyte esterase det ection by dipstickOrdered By: Maxime Mistry on 04-24-2023 Leukocyte esterase Test strip Ql (U) Negative Negative [facility] Urine pHOrdered By: Maxime schaeffer on 04-24-2023 pH (U) 7.0 [pH] 5.0 - 8.0 [facility] Urine sediment bacteria coun t by microscopy (number/high power field)Ordered By: Maxime Mistry on 04-24-2023 Bacteria LM.HPF (Urine sed) [#/Area] 0 /[HPF] None Seen [facility] Urine specific gravity measu rementOrdered By: Maxime Mistry on 04-24-2023 Specific gravity (U) [Rel density] 1.010 1.002-1.03 0 [facility] Urobilinogen Auto test strip Ql (U)Ordered By: Maxime Mistry on 04-24-2023 Urobilinogen Ql (U) Normal mg/dl Normal [facility] VITAMIN D 25 HYDROXYon 02-03 25-hydroxyvitamin D3 [Mass/Vol] 41.8 ng/mL 31.0 - 80.0 ng/mL [facility] Basic metabolic 2000 panelon 02-01-2022 Anion gap [Moles/Vol] 13 mmol/L 9 - 18 mmol/L [facility] Calcium [Mass/Vol] 9.4 mg/dL 8.5 - 10. 2 mg/dL [facility] Chloride [Moles/Vol] 104 mmol/L 97 - 10 5 mmol/L [facility] CO2 [Moles/Vol] 25 mmol/L 22 - 30 mmol/L [facility] Creatinine [Mass/Vol] 1.33 mg/dL High 0.73 - 1.22 mg/dL [facility] Estimated Glomerular Filtration Rate 57 mL/min/1.73m Low >=60 mL/min/1.7 3m [facility] Glucose [Mass/Vol] 125 mg/dL High 74 - 99 mg/dL [facility] Potassium [Moles/Vol] 5.4 mmol/L High 3.7 - 5.1 mmol/L [facility] Sodium [Moles/Vol] 142 mmol/L 136 - 144 mmol/L [facility] Urea nitrogen [Mass/Vol] 33 mg/dL High 9 - 24 mg/dL [facility] No Panel Informationon 12-31 [facility] US DVT LOWER BILon 2 US DVT LOWER LINDA * * *Final Report* * * DATE OF EXAM: Dec 31 2021 4:46PM MDU 1005 - US DVT LOWER LINDA / PROCEDURE REASON: M79.89-Leg swelling * * * * Physician Interpretation * * * * EXAMINATION: RIGHT AND LEFT LOWER EXTREMITY DEEP VENOUS ULTRASOUND WITH DOPPLER IMAGING CLINICAL HISTORY: Leg swelling TECHNIQUE: Grayscale with compression maneuvers, color Doppler and spectral Doppler imaging of the right and left proximal deep veins was performed. Grayscale with compression maneuvers of the right and left peroneal and posterior tibial veins was performed. The right and left great and small saphenous veins were evaluated at their insertion to the deep system. Images were obtained and stored in a permanent archive. MQ: [id number] COMPARISON: None RESULT: Limitations: Suboptimal visualization of the calf veins due to body habitus and edema. RIGHT LOWER EXTREMITY PROXIMAL DEEP VEINS Distal External Iliac, Common Femoral and Proximal Profunda Veins: Compression: Normal Doppler: Normal, spontaneous respirophasic flow. Normal response to augmentation. Femoral vein: Compression: Normal Doppler: Normal, spontaneous respirophasic flow. Normal response to augmentation. Popliteal vein: Compression: Normal Doppler: Normal, spontaneous respirophasic flow. Normal response to augmentation. CALF DEEP VEINS Peroneal veins: Normal compression. Posterior tibial veins: Normal compression. Gastrocnemius and Soleal veins: Not imaged. SUPERFICIAL VEINS Great saphenous: Patent and compressible at insertion into common femoral vein; not otherwise assessed. LEFT LOWER EXTREMITY PROXIMAL DEEP VEINS Distal External Iliac, Common Femoral and Proximal Profunda Veins: Compression: Normal Doppler: Normal, spontaneous respirophasic flow. Normal response to augmentation. Femoral vein: Compression: Normal Doppler: Normal, spontaneous respirophasic flow. Normal response to augmentation. Popliteal vein: Compression: Normal Doppler: Normal, spontaneous respirophasic flow. Normal response to augmentation. CALF DEEP VEINS Peroneal veins: Normal compression. Posterior tibial veins: Normal compression. Gastrocnemius and Soleal veins: Not imaged. SUPERFICIAL VEINS Great saphenous: Patent and compressible at insertion into common femoral vein; not otherwise assessed. Others: There is a 1.7 x 2.0 x 0.8 cm lymph node in the left groin. IMPRESSION: Negative study for proximal DVT in the left and right lower extremities. Negative study for calf DVT in the left and right lower extremities, within the limitation of the study. Negative study for superficial thrombophlebitis in the imaged segments of the left and right lower extremities. Appliances Sample Maker: PSCB Transcribe Date/Time: Dec 31 2021 4:58P Dictated by : ABBY ARIAS MD This examination was interpreted and the report reviewed and electronically signed by: ABBY ARIAS MD on Dec 31 2021 5:01PM EST [id number] [facility] 12-09-2021 [facility] Telephone (LA2E) NOKENDRICK Blanco ([id number]) 1950 M Date Time Provider Department 12/09/21 [place] [facility] [place] today, we recorded the following information about you: Tomas Lopez, PSS 12/09/2021 1:27 PM Signed Kendrick is feeling fantastic, no pain and walking without cane. He is very thankful and excited for his new hip. Allergies As of Date: 12/09/2021 Noted Allergy Reaction OXYCODONE 11/26/2021 11 - Vomiting CIPROFLOXACIN 03/30/2017 11 - Vomiting Comments: dizziness CRESTOR (ROSUVASTATIN) 07/15/2006 5 - Intolerance Comments: Severe myalgias; could not work because so severe LIPITOR (ATORVASTATIN CALCIUM) 11/20/2011 14 - Other: See Comments Comments: Joint pain PRAVACHOL (PRAVASTATIN SODIUM) 02/09/2012 5 - Intolerance Comments: myalgias STATINS ([id number] REDUCTAS*07/20/2009 5 - Intolerance Comments: Muscle aches; so bad cannot move Date Reviewed: 12/05/2021 Reviewed by: Arleen Caballero PTA - Fully Assessed Reason for Visit: [employer] - Hospital Follow Up [9670] Prescriptions as of 12/09/2021 - ondansetron orally disintegrating (ZOFRAN ODT) 4 mg disintegrating tablet Take 1 tablet by mouth every 8 hours as needed for nausea/vomiting. - acetaminophen (TYLENOL) 500 mg tablet Take 2 tablets by mouth every 8 hours as needed for pain. - aspirin, enteric coated (ASPIRIN, ENTERIC COATED) 81 mg EC tablet Take 1 tablet by mouth twice daily. - ascorbic acid, vitamin C, (VITAMIN C) 500 mg tablet Take 1 tablet by mouth twice daily with meals for 26 doses. - docusate sodium (COLACE) 100 mg capsule Take 1 capsule by mouth twice daily as needed for constipation. - oxyCODONE IR (ROXICODONE) 5 mg immediate release tablet Take 1-2 tablets by mouth every 6 hours as needed for pain. - insulin aspart U-100 (NOVOLOG FLEXPEN U-100 INSULIN) 100 unit/mL (3 mL) Inject 5 Units subcutaneously three times daily before meals. As directed when eats meals - insulin glargine (LANTUS SOLOSTAR U-100 INSULIN) 100 unit/mL (3 mL) Inject 5 Units subcutaneously daily at bedtime. (Adjust as indicated) - ezetimibe (ZETIA) 10 mg tablet Take 1 tablet by mouth once daily. - metFORMIN ER (GLUCOPHAGE XR) 500 mg 24 hr tablet Take 4 tablets by mouth once daily. - carvedilol (COREG) 12.5 mg tablet Take 1 tablet by mouth twice daily. - blood sugar diagnostic (Advanced Surgical ConceptsTOUCH ULTRA TEST) test strip Test blood sugar(s) 3 times daily. Dx: E11.65, DM. Insulin: Yes - ramipril (ALTACE) 10 mg capsule Take 1 capsule by mouth once daily. - Cholecalciferol, Vitamin D3, 125 mcg (5,000 unit) cap Take 1 capsule by mouth every other day. May switch to 2000 units daily - insulin needles, DISPOSABLE, (PEN NEEDLE) 31 gauge x 5/16 ndle Use one needle per dose. 4 per day. - ketoconazole (NIZORAL) 2 % cream Apply 1 application to affected area once daily. 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] 09/15/2012 Statin intolerance [Z78.9] 11/03/2013 BMI 39.0-39.9,adult [Z68.39] 04/16/2017 Prostate cancer (HCC) [C61] 12/11/2014 BPH (benign prostatic hyperplasia) [N40.0] 12/11/2014 Elevated PSA [R97.20] 12/27/2014 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*03/06/2015 Hot flashes [R23.2] 12/27/2015 Sebaceous cyst [L72.3] 05/21/2016 Class 1 obesity due to excess calories with bod*09/30/2017 11/01/2021 Uncontrolled type 2 diabetes mellitus with hype*01/19/2019 11/01/2021 Primary osteoarthritis of left hip [M16.12] 11/01/2021 Encounter Status:Closed by TOMAS LOPEZ on 12/09/21 [facility] XR HIP 2V AP/ LAT LTon 11-26 XR HIP 2V AP/ LAT LT * * *Final Report* * * DATE OF EXAM: Nov 26 2021 1:16PM JOHANA [id number] - XR HIP 2V AP/ LAT LT / PROCEDURE REASON: M25.552-Pain in left hip * * * * Physician Interpretation * * * * XR HIP 2V AP/ LAT LT EXAM DATE/TIME: 11/26/2021 1:16 PM HISTORY: 70 years old Clinical information: Pain in left hip LEFT HIP PAIN-BJ-AP LOW PELVIS PER ORTHO DR PROTOCOL Pelvis, cross table lateral TECHNIQUE: Images: XR HIP 2V AP/ LAT LT Comparison: 11/11/2021 RESULT: Findings: The components of the LEFT total hip arthroplasty are in good alignment with the respective bones and each other. There is no evidence of loosening of the components. Bone density appears well-preserved. No fractures or dislocations are seen. IMPRESSION: Stable [employer] Sample Maker: PSCB Transcribe Date/Time: Nov 26 2021 1:40P Dictated by : AUGILA TRINH DO This examination was interpreted and the report reviewed and electronically signed by: AGUILA TRINH DO on Nov 26 2021 1:41PM EST [id number] [facility] XR HIP 2V AP/LAT LEFT ([place] ,[place])on 11-26-2021 [facility] 11-13-2021 CNPN Telephone (LA2E) KENDRICK BARRAZA ([id number]) 1950 M Date Time Provider Department 11/13/21 GLENDY OCHOA LA2E During your visit today, we recorded the following information about you: NETO Buckley 11/13/2021 11:41 AM Signed EUGENIA Ricks calling from [facility]. Came to start therapy today and his is vommitting. Ate breakfast this morning but thinks it is from pain meds. Would like antiemetic to be sent to [facility] pharmacy on chart. Thanks. Steve Yee PA-C 11/13/2021 11:53 AM Signed Antiemetic e-scripted to requested pharmacy. Steve Yee PA-C Allergies As of Date: 11/13/2021 Noted Allergy Reaction CIPROFLOXACIN 03/30/2017 11 - Vomiting Comments: dizziness CRESTOR (ROSUVASTATIN) 07/15/2006 5 - Intolerance Comments: Severe myalgias; could not work because so severe LIPITOR (ATORVASTATIN CALCIUM) 11/20/2011 14 - Other: See Comments Comments: Joint pain PRAVACHOL (PRAVASTATIN SODIUM) 02/09/2012 5 - Intolerance Comments: myalgias STATINS ([id number]-[id number]-DIW REDUCTAS*07/20/2009 5 - Intolerance Comments: Muscle aches; so bad cannot move Date Reviewed: 11/12/2021 Reviewed by: Scott Sow RN - Fully Assessed Reason for Visit: Patient Update [1234] Order(s):Order #: [id number] Prescriptions as of 11/13/2021 - ondansetron orally disintegrating (ZOFRAN ODT) 4 mg disintegrating tablet Take 1 tablet by mouth every 8 hours as needed for nausea/vomiting. - acetaminophen (TYLENOL) 500 mg tablet Take 2 tablets by mouth every 8 hours as needed for pain. - aspirin, enteric coated (ASPIRIN, ENTERIC COATED) 81 mg EC tablet Take 1 tablet by mouth twice daily. - ascorbic acid, vitamin C, (VITAMIN C) 500 mg tablet Take 1 tablet by mouth twice daily with meals for 26 doses. - ferrous sulfate 325 mg (65 mg iron) tablet Take 1 tablet by mouth daily with lunch for 6 doses. - polyethylene glycol 3350 (MIRALAX, GLYCOLAX) 17 gram packet Take 1 Packet by mouth once daily as needed for constipation for up to 10 days. Dissolve dose in 4 - 8 ounces of liquid and take as directed. - docusate sodium (COLACE) 100 mg capsule Take 1 capsule by mouth twice daily as needed for constipation. - oxyCODONE IR (ROXICODONE) 5 mg immediate release tablet Take 1-2 tablets by mouth every 6 hours as needed for pain. - insulin aspart U-100 (NOVOLOG FLEXPEN U-100 INSULIN) 100 unit/mL (3 mL) Inject 5 Units subcutaneously three times daily before meals. As directed when eats meals - insulin glargine (LANTUS SOLOSTAR U-100 INSULIN) 100 unit/mL (3 mL) Inject 5 Units subcutaneously daily at bedtime. (Adjust as indicated) - ezetimibe (ZETIA) 10 mg tablet Take 1 tablet by mouth once daily. - metFORMIN ER (GLUCOPHAGE XR) 500 mg 24 hr tablet Take 4 tablets by mouth once daily. - carvedilol (COREG) 12.5 mg tablet Take 1 tablet by mouth twice daily. - blood sugar diagnostic (Advanced Surgical ConceptsTOUCH ULTRA TEST) test strip Test blood sugar(s) 3 times daily. Dx: E11.65, DM. Insulin: Yes - ramipril (ALTACE) 10 mg capsule Take 1 capsule by mouth once daily. - Cholecalciferol, Vitamin D3, 125 mcg (5,000 unit) cap Take 1 capsule by mouth every other day. May switch to 2000 units daily - insulin needles, DISPOSABLE, (PEN NEEDLE) 31 gauge x / ndle Use one needle per dose. 4 per day. - ketoconazole (NIZORAL) 2 % cream Apply 1 application to affected area once daily. 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] 09/15/2012 Statin intolerance [Z78.9] 11/03/2013 BMI 39.0-39.9,adult [Z68.39] 04/16/2017 Prostate cancer (HCC) [C61] 12/11/2014 BPH (benign prostatic hyperplasia) [N40.0] 12/11/2014 Elevated PSA [R97.20] 12/27/2014 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*03/06/2015 Hot flashes [R23.2] 12/27/2015 Sebaceous cyst [L72.3] 05/21/2016 Class 1 obesity due to excess calories with bod*09/30/2017 11/01/2021 Uncontrolled type 2 diabetes mellitus with hype*01/19/2019 11/01/2021 Primary osteoarthritis of left hip [M16.12] 11/01/2021 Prescriptions ordered this encounter Disp Refills Start End ONDANSETRON 4 MG DISINTEGRATING TABL* 10 t* 0 11/13/2021 Route: ORAL Sig: Take 1 tablet by mouth every 8 hours as needed for nausea/vomiting. Encounter Status:Closed by STEVE YEE on 11/13/21 Normal [facility] Basic metabolic 2000 panelon 11-12-2021 Anion gap [Moles/Vol] 8 mmol/L Low 9-18 [facility] Comment on above: Order Comment: Speci men Type: BLOOD SPECIMENOrdering Facility: [facility] Address: [address] [place] [address] Performed By: #### 2 4321-2 ####[facility] LABORATORYCLIA [id number] [place] [address] [place] Calcium [Mass/Vol] 8.6 mg/dL Normal 8.5-10.2 [facility] Comment on above: Order Comment: Speci men Type: BLOOD SPECIMENOrdering Facility: [facility] Address: [address] [place] [address] Performed By: #### 2 4321-2 ####[facility] LABORATORYCLIA [id number] [place] [address] [place] Chloride [Moles/Vol] 101 mmol/L Normal 97-105 [facility] Comment on above: Order Comment: Speci men Type: BLOOD SPECIMENOrdering Facility: [facility] Address: [address] [address] Performed By: #### 2 4321-2 ####[facility] LABORATORYCLIA [id number] [place] [address] [place] CO2 [Moles/Vol] 28 mmol/L Normal 22-30 [facility] Comment on above: Order Comment: Speci men Type: BLOOD SPECIMENOrdering Facility: [facility] Address: [address] [address] Performed By: #### 2 4321-2 ####[facility] LABORATORYCLIA [id number] [place] [address] [place] Creatinine [Mass/Vol] 1.12 mg/dL Normal 0.73-1.22 [facility] Comment on above: Order Comment: Wilma peña Type: BLOOD SPECIMENOrdering Facility: [facility] Address: [address] [id number] Performed By: #### 2 4321-2 ####[facility] LABORATORYCLIA [id number] [place] [address] [facility] [place] ESTIMATED GLOMERULAR FILTRATION RATE 70 mL/min/1.73m??? Normal >=60 [facility] Comment on above: Order Comment: Sudhirdanisha peña Type: BLOOD SPECIMENOrdering Facility: [facility] Address: [address] [place], [place] [id number] Result Comment: Summer mated Glomerular Filtration Rate (eGFR) is calculated using the 2020 CKD-EPI creatinine equation. This equation utilizes serum creatinine, sex, and age as parameters. The creatinine assay has traceable calibration to isotope dilution-mass spectrometry. Refer to KDIGO guidelines for clinical interpretation. In patients with unstable renal function, e.g. those with acute kidney injury, the eGFR may not accurately reflect actual GFR. Performed By: #### 2 4321-2 ####[facility] LABORATORYCLIA [id number] [address] [place] Glucose [Mass/Vol] 159 mg/dL High 74-99 [facility] Comment on above: Order Comment: Wilma peña Type: BLOOD SPECIMENOrdering Facility: [facility] Address: [address] [place], [place] [id number] Result Comment: The [place] Diabetes Association (ADA) provides guidance for cutoff values for fasting glucose and random glucose. The ADA defines fasting as no caloric intake for at least 8 hours. Fasting plasma glucose results between 100 to 125 mg/dL indicate increased risk for diabetes (prediabetes). Fasting plasma glucose results greater than or equal to 126 mg/dL meet the criteria for diagnosis of diabetes. In the absence of unequivocal hyperglycemia, results should be confirmed by repeat testing. In a patient with classic symptoms of hyperglycemia or hyperglycemic crisis, random plasma glucose results greater than or equal to 200 mg/dL meet the criteria for diagnosis of diabetes. Reference: Standards of Medical Care in Diabetes 2016, [place] [employer] Association. Diabetes Care. 2016.39(Suppl 1). Performed By: #### 2 4321-2 ####[facility] LABORATORYCLIA [id number] [address] Potassium [Moles/Vol] 4.4 mmol/L Normal 3.7-5.1 [facility] Comment on above: Order Comment: Speci men Type: BLOOD SPECIMENOrdering Facility: [facility] Address: [address] [place] [address] Performed By: #### 2 4321-2 ####[facility] LABORATORYCLIA [id number] [address] Sodium [Moles/Vol] 137 mmol/L Normal 136-144 [facility] Comment on above: Order Comment: Speci men Type: BLOOD SPECIMENOrdering Facility: [facility] Address: [address] [place] [address] Performed By: #### 2 4321-2 ####[facility] LABORATORYCLIA [id number] [address] Urea nitrogen [Mass/Vol] 25 mg/dL High 9-24 [facility] Comment on above: Order Comment: Speci men Type: BLOOD SPECIMENOrdering Facility: [facility] Address: [address] [place] [address] Performed By: #### 2 4321-2 ####[facility] LABORATORYCLIA [id number] [address] CASE MANAGEMon 11-12-2021 CASE MANAGEM HNO ID: [id number] Author: Chelsey Cheney RN Service: Case Management Author Type: Registered Nurse Type: Care Mgt Progress Note Filed: 11/12/2021 1:05 PM Note Text: CARE MANAGEMENT DISCHARGE NOTE SERVICE DATE: 11/12/2021 SERVICE TIME: 1:03 PM LOS: 0 days Admission Date: 11/11/2021 DISCHARGE ARRANGEMENT (list agency and phone number) Discharge Arrangement: Home with Home Health;Home with Relative Provider Name: [facility] CAREGIVER ASSESSMENT: Caregiver is ready, willing and able to meet the patient's needs as recommended by the inter-professional team:: Yes Does the patient have an acute stroke diagnosis, or has the patient had a stroke during this admission?: No Patient's transition needs and plan for meeting these needs: Home PT HANDOFF COMMUNICATION: Handoff to: Primary Care Physician Primary Care Physician Name/Phone: Dr. Evie Grewal- [phone] TRANSPORTATION ARRANGEMENTS: Transportation Arrangements: Car- Son to transport Discharge Information Row Name Admission (Current) from 11/11/[address] [facility] Start of Care ? Within 24- 48 hours Needs Prior to Discharge: Ready for Discharge Discharge order written for today. [facility] will be seeing the patient for Home PT with a start of care date within 24- 48 hours. Notified [facility] of the patients discharge home today. The patient requested CM contact his son for transport. Call placed to the patients son Ed- he noted he will be in this afternoon to roll picker the patient. SIGNATURE: Chelsey Cheney RN PATIENT NAME: Kendrick Barraza DATE: November 12, 2021 TIME: 1:03 PM PAGER/CONTACT #: [phone] [facility] CASE MANAGEM HNO ID: [id number] Author: Chelsey Cheney RN Service: Case Management Author Type: Registered Nurse Type: Care Mgt Progress Note Filed: 11/12/2021 10:53 AM Note Text: CARE MANAGEMENT PROGRESS NOTE SERVICE DATE: 11/12/2021 SERVICE TIME: 10:52 AM LOS: 0 days Needs Prior to Discharge: Other: See Comment (Medical Clearance) [facility] able to accept. CM department will continue to follow for DC needs. SIGNATURE: Chelsey Cheney RN PATIENT NAME: Kendrick Barraza DATE: November 12, 2021 TIME: 10:52 AM PAGER/CONTACT #: [phone] [facility] CASE MGT INIT Lio 2021 CASE MGT INIT [facility] HNO ID: [id number] Author: Chelsey Cheney RN Service: Case Management Author Type: Registered Nurse Type: Care Mgt Initial Assessment Filed: 11/12/2021 11:37 AM Note Text: CARE MANAGEMENT: ASSESSMENT AND DISCHARGE PLAN SERVICE DATE: November 12, 2021 SERVICE TIME: 11:36 AM PRIMARY CARE PHYSICIAN: Evie Grewal MD - Confirmed with the patient ADMISSION STATUS: Extended Recovery Needs Prior to Discharge: Ready for Discharge MEDICAL: MEDICARE A AND B 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 Last discharge within 30 days: No Advance Directive: Current Advance Directive: None Clothing Man Attempted to Assist with AD Completion: Yes Action: Patient Unwilling Health LiteracyHow often do you need to have someone help you when you read instructions, pamphlets, or other written material from your doctor or pharmacy? : 1 - Never How confident are you filling out medical forms by yourself?: 1 - Extremely If Patient scores > 3 on either question, the following interventions were put into place:: Patient did not score > 3 on either question. Baseline Mental Status Prior to this Illness what was the patient's Baseline Mental Status?: Alert AND Oriented Prior to this illness, has anyone described the patient having any of the following behaviors?: Not Applicable Relationship of the informant to the patient:: Self Functional Status: Independent Does Patient Currently Receive Any Community Services or Home Care?: None Equipment Prior to Admission: Tub bench/chair;Cane;Walker;Othe r: See Comment ([place] Operation, Chair lift, Sock Aid, Nursing Program Director) Has the Patient Been in a Intermediate Facility in the Past 30 days?: No SOCIAL: Living Arrangements: Home Lives With: Spouse Financial Resources: Not Applicable Primary Contact: Extended Emergency Contact Information Primary Emergency Contact: Nicolasa Barraza Address: [address] [place] [address] [facility] Mobile Relation: Spouse Secondary Emergency Contact: Cordell Barraza Relation: Son Supportive Patient Contact:: Yes Contact Resources: Family Family Name/Phone: Bong Barraza- Son [phone] Caregiver AssessmentCaregiver is ready, willing and able to meet the patient's needs as recommended by the inter-professional team:: Yes Does the patient have an acute stroke diagnosis, or has the patient had a stroke during this admission?: No Patient's transition needs and plan for meeting these needs: Home PT Patient's perception of need for this admission: Elective surgery Medication Adherance I am convinced of the importance of my prescription medication: 0 - Agree Completely I worry that my prescription medication will do more harm than good to me : 0 - Disagree Completely I feel financially burdened by my rdt-rp-gondlv expenses for my prescription medication:: 0 - Disagree Completely Risk Score: 0 Patient is categorized as: Low risk < 2 Are you interested in bedside delivery of your medications? No Home Pharmacy- [facility] Is Patient Psychosocially Complex?: No ASSESSMENT AND PLAN: Medical Needs: Medical Needs: Two or more chronic diseases;Obesity;Fall risk or frequent falls Psychosocial Needs: FREEDOM OF CHOICE EXPLAINED: [place] of Choice Given: Yes Level of Care Discussed: Home Care Financial Disclosure Provided: Yes POTENTIAL TRANSITION PLANS Home OT/PT Review of the chart and met with the patient. The patient lives with his in a ranch home. PT recommending Home PT. Referral to [facility] and they are able to accept. CM department will continue to follow for DC needs. SIGNATURE: Chelsey Cheney RN PATIENT NAME: Kendrick Barraza DATE: November 12, 2021 TIME: 11:36 AM PAGER/CONTACT #: [phone] Normal [facility] CBC panel Auto (Bld)on 11-12 Erythrocyte distribution width (RBC) [Ratio] 13.2 % Normal 11.5-15.0 [facility] Comment on above: Order Comment: Wilma peña Type: BLOOD SPECIMENOrdering Facility: [facility] Address: [address] [address] Performed By: #### 5 8410-2 ####[facility] LABORATORYCLIA [id number] [place] [address] [place] Hematocrit (Bld) [Volume fraction] 36.6 % Low 39.0-51.0 [facility] Comment on above: Order Comment: Wilma peña Type: BLOOD SPECIMENOrdering Facility: [facility] Address: [address] [address] Performed By: #### 5 8410-2 ####[facility] LABORATORYCLIA [id number] [address] Hemoglobin (Bld) [Mass/Vol] 12.3 g/dL Low 13.0-17.0 [facility] Comment on above: Order Comment: Speci men Type: BLOOD SPECIMENOrdering Facility: [facility] Address: [address] [place] [address] Performed By: #### 5 8410-2 ####[facility] LABORATORYCLIA [id number] [address] MCH (RBC) [Entitic mass] 31.9 pg Normal 26.0-34.0 [facility] Comment on above: Order Comment: Speci men Type: BLOOD SPECIMENOrdering Facility: [facility] Address: [address] [place] [address] Performed By: #### 5 8410-2 ####[facility] LABORATORYCLIA [id number] [address] MCHC (RBC) [Mass/Vol] 33.6 g/dL Normal 30.5-36.0 [facility] Comment on above: Order Comment: Speci men Type: BLOOD SPECIMENOrdering Facility: [facility] Address: [address] [place] [address] Performed By: #### 5 8410-2 ####[facility] LABORATORYCLIA [id number] [address] MCV (RBC) [Entitic vol] 95.1 fL Normal 80.0-100.0 [facility] Comment on above: Order Comment: Speci men Type: BLOOD SPECIMENOrdering Facility: [facility] Address: [address] [place] [address] Performed By: #### 5 8410-2 ####[facility]ORATORYCLIA [id number] [address] Nucleated RBC (Bld) [#/Vol] 10*3/uL Normal <0.01 [facility] Comment on above: Order Comment: Speci men Type: BLOOD SPECIMENOrdering Facility: [facility] Address: [address] [place] [address] Performed By: #### 5 8410-2 ####[facility] LABORATORYCLIA [id number] [address] Platelet mean volume (Bld) [Entitic vol] 9.5 fL Normal 9.0-12.7 [facility] Comment on above: Order Comment: Speci men Type: BLOOD SPECIMENOrdering Facility: [facility] Address: [address] [place] [address] Performed By: #### 5 8410-2 ####[facility] LABORATORYCLIA [id number] [address] [place] Platelets (Bld) [#/Vol] 137 10*3/uL Low 150-400 [facility] Comment on above: Order Comment: Speci men Type: BLOOD SPECIMENOrdering Facility: [facility] Address: [address] [place] [address] Result Comment: No c lot detected Performed By: #### 5 8410-2 ####[facility] LABORATORYCLIA [id number] [address] RBC (Bld) [#/Vol] 3.85 10*6/uL Low 4.20-6.[address] [facility] Comment on above: Order Comment: Speci men Type: BLOOD SPECIMENOrdering Facility: [facility] Address: [address] [place] [address] Performed By: #### 5 8410-2 ####[facility] LABORATORYCLIA [id number] [address] [place] WBC (Bld) [#/Vol] 5.93 10*3/uL Normal 3.70-11.[address] [facility] Comment on above: Order Comment: Speci men Type: BLOOD SPECIMENOrdering Facility: [facility] Address: [address] [place] [address] Performed By: #### 5 8410-2 ####[facility] LABORATORYCLIA [id number] [address] [place] CNCOon 11-12-2021 CNCO Letter Text [facility] NUTRITIONon 11-12-2021 NUTRITION HNO ID: [id number] Author: Becca Lucas RD Service: Nutrition Therapy Author Type: Registered Dietitian Type: Nutrition Filed: 11/12/2021 8:57 AM Note Text: NUTRITION THERAPY SCREEN NOTE SERVICE DATE: 11/12/2021 SERVICE TIME: 8:00am Care Plan: Continue current diet Monitor intake. Reviewed physician progress notes and labs. Moniter goal- 75% of meals. Intake History: no reported problems Diet Orders (From admission, onward) Start Ordered 11/11/21 1200 Diet Regular START NOW 11/11/21 1157 Anthropometrics: Height: 175.3 cm (5' 9) Weight: 92.3 kg (203 lb 7.8 oz) No recent documented clinical significant weight loss. MNT Billing: $ Initial Assessment: 1-15 minutes SIGNATURE: Becca Lucas RD PATIENT NAME: Kendrick Barraza DATE: November 12, 2021 TIME: 8:56 AM [facility] THERAPY NTon 11-12-2021 THERAPY NT HNO ID: [id number] Author: Chelsey Infante OT/L Service: Occupational Therapy Author Type: Occupational Therapist Type: Therapy (PT/OT/Speech/Resp) Filed: 11/12/2021 11:20 AM Note Text: Occupational Therapy Evaluation SERVICE DATE: 11/12/2021 SERVICE TIME: 1025 to 1103 ROOM: [place] [address] Recommended Discharge Disposition: Home OT Anticipated Discharge Needs: Physical Assist at Home;Supervision at Home Physical Assist at Home for: Cleaning;Laundry;Meals;Stair s;Safety;Shopping;Transporta tion;Self Care Supervision at Home due to: Decreased safety awareness OT 6 Clicks Score: 22 Precautions/Activity Restrictions: Fall Risk;Lines/Tubes/Drains;Weig ht Bearing Restrictions;Total Hip Replacement Precaution/Activity Restriction Comments: standard Extremity With Weight Bearing Restricted: Left Lower Extremity Left Lower Extremity Weight Bearing Status: WBAT Total Hip Replacement Precautions: Posterior Current Hospital Course: s/p L BJ Reason for Hospital Admission: planned surgery Relevant Past Medical History: CAD X 4 stents, CHF, HTN, HLD, CLL, DM, Diverticulosis, PVC, Pleural effusion Response to Therapy Interventions: Good participation in activities Assessment Comments: Pt Aox3. Motivated or therapy. Demos good understanding of Hip precuations and use of AE. Continue skilled needs due to: Continued monitoring of vital signs during mobility required, Functional impairment, Safety concerns Occupational Therapy Problem List: Pain;Safety Deficits;Impaired Self Care;Decreased Activity Tolerance;Functional Mobility Impairment;Balance Impaired Cognition/Communication Deficits Orientation Deficits: (Aox3, slow processing) Responsiveness: Awake Follows Commands: 2-step Commands, Cueing Needed Cueing to Follow Commands: Minimum Executive Function Deficits: Safety Awareness Safety Awareness Deficit: Minimal impairment Cognitive Clinical Tests and Screens: 4AT Screening 4AT Screening Assess alertness (ask patient to state their name and address): Normal (fully alert, but not agitated, throughout assessment) Ask patient: age, date of , current year, and current location: No mistakes Ask patient to tell me the months of the year backwards order, starting with July: Able to state 7+ months correctly Acute change or fluctuating mental status: No 4AT Score: 0 Delirium Positive/Negative: Negative Treatment Interventions: Self Care / Home Management;Strengthening;Fun ctional Mobility Training;Balance Training;Pain Management Plan for next visit: Toileting instruction, Dressing training, Standing tolerance, Standing balance, Sit to stand transfers Home Environment Patient Lives With: Spouse Assistance Available: timekeeping supervisor ( 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) Entry To Home: Stairs;With Rail Number Of Stairs Into Home: 2 Number Of Stairs To Bed/Bath: 0 Tub/Shower Type: tub shower, + grab bars, + shower bench, + HHSH Laundry: main floor - can complete Equipment Owned: Cane;Wheeled Walker;Extended tub bench;Grab Bars-Toilet;Grab Bars-Shower;Hand Held Shower;Elevated Toilet Seat;Lift Chair;Rollator;Hospital Bed;Long Handled Shoe Horn;Sock Aid;Nursing Program Director Prior Functional Level: Within Functional Limits;Required Assistance Assistance Required With: Shopping;Finances Prior Functional Level Comments: Pt reports IND with ADLs, shares IADLs with . Ambulates with SC. + drives Patient Report: I'm doing great CURRENT FUNCTIONAL STATUS: Most recent performance Current Activities of Daily Living Assist Level Additional Information Feeding Set Up Grooming Set Up Bathing Upper Body Stand By Assistance Bathing Lower Body Contact Guard Assistance (with use of AE and increased time to don pants over legs. CGA to Min A for pulling pants over waist while standing) Dressing Upper Body Stand By Assistance Dressing Lower Body Contact Guard Assistance (with use of AE) Toileting Contact Guard Assistance Instrumental Activities of Daily Living Assist Level Additional Information Meal/Beverage Prep Maximal Assistance Cleaning Maximal Assistance Laundry Maximal Assistance Medication Management with Strategies Functional Mobility Assist Level Additional Information Rolling Supine to Sit Moderate Assistance (with HOB elevated (usually sleeps in recliner)) Sit to Supine Scooting Sit to Stand Contact Guard Assistance Stand to Sit Contact Guard Assistance Bed to Chair Contact Guard Assistance Toilet/Commode Shower Functional Mobility Contact Guard Assistance Wheeled Walker Blank harris indicate activity not attempted Learning/Educational Needs: Discharge Plan;Disease Process;Equipment;Functional Activities/Mobility;Pain Management;Plan of Care;Precautions;Rehabilitat ion Techniques and Procedures;Safety;Self Care Goals for Plan of Care: Patient /Caregiver Goals: Go Home;Care For Self Goals: Patient will demonstrate progress with cyndi (more content not included)... [facility] THERAPY NT HNO ID: [id number] Author: Joan Wells PTA Service: Physical Therapy Author Type: Medical Library Assistant Type: Therapy (PT/OT/Speech/Resp) Filed: 11/12/2021 8:49 AM Note Text: Attestation signed by Kamala Borges PT at 11/12/2021 9:03 AM I reviewed and agree with the documentation corresponding to this therapy visit. SIGNATURE: Kamala Borges PT DATE: November 12, 2021 TIME: 9:03 AM Physical Therapy Treatment SERVICE DATE: 11/12/2021 SERVICE TIME: 729 to 815 ROOM: [id number] Recommended Discharge Disposition: Home PT Recommended Discharge Disposition Comments: Pt currently functioning below baseline s/p L BJ; Pt demonstrating increased pain, post-op edema, decreased LLE ROM, decreased LLE strength, impaired activity tolerance, impaired balance, and overall decreased functional mobility requiring continued skilled services post acute stay to address deficits and assist pt to reaching PLOF. Anticipated Discharge Needs: Physical Assist at Home;Supervision at Home Physical Assist at Home for: Laundry;Transportation;Shopp ing Supervision at Home due to: Other: See Comment (Initially for optimal safety) Recommended Discharge Equipment: No equipment needs anticipated PT 6 Clicks Score: 18 Precautions/Activity Restrictions: Fall Risk;Lines/Tubes/Drains;Weig ht Bearing Restrictions;Total Hip Replacement Precaution/Activity Restriction Comments: standard Extremity With Weight Bearing Restricted: Left Lower Extremity Left Lower Extremity Weight Bearing Status: WBAT Total Hip Replacement Precautions: Posterior Current Hospital Course: s/p L BJ Reason for Hospital Admission: Primary osteoarthritis of left hip Relevant Past Medical History: CAD X 4 stents, CHF, HTN, HLD, CLL, DM, Diverticulosis, PVC, Pleural effusion Response to Therapy Interventions: Notable progression with functional activities/skills, On-track to achieve discharge goals, Good participation in activities, Improved tolerance for activity, Pain Assessment Comments: Patient demonstrates excellent safety awareness and appropriately follows therapist cues. Physical Therapy Problem List: Education Deficit;Pain;Edema;Impaired Self Care;Decreased Activity Tolerance;Decreased Range Of Motion;Decreased Strength;Functional Mobility Impairment;Balance Impaired Treatment Interventions: Education;Self Care / Home Management;Energy Conservation Training;Joint Mobility;Strengthening;Funct ional Mobility Training;Balance Training;Modalities;Edema Management;Pain Management;Orthotic Management and Training Modalities: Ice Plan for next visit: Bed mobility, Chair transfer training, Fall prevention, Family instruction, Gait training, Exercise instruction/handout, Sit to Stand Transfers, Standing Balance, Standing Tolerance, Walker Training Home Environment Patient Lives With: Spouse Assistance 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 Will be off for one week) Entry To Home: Stairs;With Rail (bilateral rail) Number Of Stairs Into Home: 2 Number Of Stairs To Bed/Bath: 0 Tub/Shower Type: tub shower, + grab bars, + shower bench, + HHSH Laundry: main floor - can complete Equipment Owned: Cane;Wheeled Walker;Extended tub bench;Grab Bars-Toilet;Grab Bars-Shower;Hand Held Shower;Elevated Toilet Seat;Lift Chair;Rollator;Hospital Bed;Long Handled Shoe Horn;Sock Aid;Nursing Program Director Prior Functional Level: Within Functional Limits;Required Assistance Assistance Required With: Shopping;Finances Prior Functional Level Comments: Pt reports indepedence with ADLs and IADLs, Pt reports spouse assists with grocery shopping and finances. + driving, Pt reports use of cane for ambulation and reports that he gets dizzy when making quick turns. Denies any falls in the past 6 months Patient Report: Patient pleasant and motivated to participate with PT. Patient states, I have been practicing all this before surgery. CURRENT FUNCTIONAL STATUS: Most recent performance Current Functional Mobility Assist Level Additional Information Rolling Supine to Sit Moderate Assistance HOB flat, use of rails, assist with trunk and LE mgmt Sit to Supine Additional Information Patient in bed side chair at end of treatment Scooting Contact Guard Assistance forward to EOB, forward/retro in chair Sit to Stand Minimal Assistance (to CGA) x1 trial from low bed height Min A, x3 trials from chair Stand to Sit Contact Guard Assistance Cues for safe approach, L LE extension and controlled/eccentric decent Bed to Chair Toilet/Commode Gait Contact Guard Assistance Gait Device: Wheeled Walker Gait Distance (feet): 40'x1, 10'x2 Step-to gait, decreased stride length L LE, upright posture and diaphragmatic breathing Stairs Contact Guard Assistance Stairs Device: Rail (bi (more content not included)... [facility] ALLIED HEALTHon 11-11-2021 ALLIED HEALTH HNO ID: [id number] Author: RT Jose Francisco(R) Service: Radiology Author Type: Technologist Type: Allied Health Filed: 11/11/2021 10:39 AM Note Text: Radiology Service Progress Note PATIENT NAME: Kendrick Barraza DATE OF SERVICE: November 11, 2021 TIME: 10:38 AM PATIENT IDENTITY VERIFICATION COMPLETED USING TWO (2) IDENTIFIERS: Name and Date of confirmed by identification band. FALL SCREENING: Has the patient had 2 falls in the last year or 1 fall with injury or currently using an Ambulatory Assistive Device (Walker, Cane, Wheelchair, Crutches, etc.)? Inpatient: Screened on floor PATIENT GENDER DATA: Male PATIENT RELEVANT IMPLANT DATA REVIEWED: Not Applicable RADIOLOGY DEPARTMENT: General X-ray: Exam(s) Completed: Pelvis X-Ray: Pelvis General AP PERIPHERAL IV DATA: Not applicable SIGNED BY: RT Jose Francisco(R) November 11, 2021 10:38 AM [facility] ANES POSTPROC EVALon 022 ANES POSTPROC EVAL HNO ID: [id number] Author: Joy Cooper MD Service: Anesthesiology Author Type: Anesthesiologist Type: Anesthesia Postprocedure Evaluation Filed: 11/11/2021 11:28 AM Note Text: POST ANESTHESIA EVALUATION NOTE : 1950 Procedure Summary Date: 11/11/21 Room / Location: [place] [address] / [place] Anesthesia Start: 725 Anesthesia Stop: 1003 Procedure: ARTHROPLASTY REPLACE JOINT TOTAL HIP (Left Hip) Diagnosis: Primary osteoarthritis of left hip Surgeons: Glendy Ochoa MD Responsible Provider: Joy Cooper MD Anesthesia Type: spinal ASA Status: 3 Anesthesia Type: spinal Last Vitals Vitals Value Taken Time BP 152/74 11/11/21 1116 Temp 36.3 11/11/21 1128 Pulse 62 11/11/21 1127 Resp 9 11/11/21 1127 SpO2 97 % 11/11/21 1127 Vitals shown include unvalidated device data. Post Anesthesia Patient Status Patient Evaluation: PACU. PACU/ICU Patient Condition: stable. Anticipated Disposition: inpatient floor planned admission. Neurological Status: aware and responsive. Pulmonary Status: breathing comfortably on room air Airway Control: returned to baseline unsupported. Cardiovascular Status: stable. Pain Management: clinically adequate - multimodal analgesia pain management approach Postoperative Hydration: acceptable. Intraoperative Events: no significant anesthesia events Post Operative Nausea/Vomiting Status: no significant post operative nausea or vomiting Anesthetic Observations: Recommendation: continue current plan of care and further care per PACU/ICU/floor team. Anesthesia Observations No Documentation SIGNATURE: Joy Cooper MD PATIENT NAME: Kendrick Barraza DATE: November 11, 2021 TIME: 11:28 AM CSN: [id number] [facility] ANES PRE-OPon 11-11-2021 ANES PRE-OP HNO ID: [id number] Author: Joy Cooper MD Service: Anesthesiology Author Type: Anesthesiologist Type: Anesthesia Preprocedure Evaluation Filed: 11/11/2021 6:59 AM Note Text: ANESTHESIOLOGY DAY OF SURGERY NOTE : 1950 Procedure Information Date/Time: 11/11/21729 Procedure: ARTHROPLASTY REPLACE JOINT TOTAL HIP (Left Hip) [place] Surgeons: Glendy Ochoa MD Estimated body mass index is 29.53 kg/m? as calculated from the following: Height as of 11/01/21: 175.3 cm (5' 9). Weight as of 11/01/21: 90.7 kg (200 lb). Most recent hematocrit and potassium results: Hematocrit 50.3 10/19/2021 Potassium 4.4 10/19/2021 Relevant Problems CARDIO (+) CAD (coronary artery disease) (+) CHF (congestive heart failure) (HCC) (+) Essential hypertension, benign (+) Hot flashes ENDO (+) Controlled type 2 diabetes mellitus without complication, with long-term current use of insulin (HCC) Other (+) CLL (chronic lymphocytic leukemia) (HCC) (+) 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) I - PHYSICAL EVALUATION AIRWAY Patient intubated: No. Tracheostomy tube not present Mallampati: II. TM distance: >3 FB. Neck ROM: full ROM without neurological symptoms. Mouth opening: adequate. Short neck: no. Thick neck: no DENTAL Normal dental observations. Dental findings: missing tooth/teeth and chipped. Additional exam findings: yes. CARDIOVASCULAR Rhythm: regular PULMONARY Breath sounds clear to auscultation. II - ANESTHESIA PLAN ASA Score: 3 Anesthetic Plan: spinal NPO Status: adequate Monitoring plan: Standard ASA. Anesthetic plan additional comments: + MAC Sedation. Postoperative analgesic plan: parenteral or oral opioids and multimodal analgesia. Patient / Surrogate agrees to blood products: yes DNR status not reviewed with patient and/or family prior to surgery. Significant changes in the patient condition since the History and Physical, not otherwise documented in primary service progress note: no. Potential Anesthesia issues that may suggest increased risk of complications or contraindication to planned procedure: none. No vitals data found for the desired time range. Facility-Administered Medications as of 11/11/2021 Medication Dose Route Frequency - acetaminophen 1,000 mg tab(s) (TYLENOL) 1,000 mg ORAL Pre-Op Once - [COMPLETED] celecoxib 200 mg cap(s) (CeleBREX) 200 mg ORAL Pre-Op Once - [COMPLETED] gabapentin 100 mg cap(s) (NEURONTIN) 100 mg ORAL Pre-Op Once - [COMPLETED] oxyCODONE ER 10 mg tab(s) (OxyCONTIN) 10 mg ORAL Pre-Op Once - scopolamine 1 mg over 3 days 1 Patch (TRANSDERM-SCOP) 1 Patch TRANSDERMAL Pre-Op Once - [COMPLETED] promethazine 12.5 mg tab(s) (PHENERGAN) 12.5 mg ORAL NOW - lactated ringers iv infusion 5-30 mL/hr INTRAVENOUS CONTINUOUS - ceFAZolin iv piggyback 2 g in D5W (iso-osmotic) 100 mL (ANCEF) 2 g INTRAVENOUS Pre-Op Once - tranexamic acid iv piggyback 1000 mg in NaCl 0.7% 100 mL (CYKLOKAPRON) 1,000 mg INTRAVENOUS Pre-Op Once - tranexamic acid iv piggyback 1000 mg in NaCl 0.7% 100 mL (CYKLOKAPRON) 1,000 mg INTRAVENOUS ONCE Outpatient Medications as of 11/11/2021 Medication Sig - ezetimibe (ZETIA) 10 mg tablet Take 1 tablet by mouth once daily. - metFORMIN ER (GLUCOPHAGE XR) 500 mg 24 hr tablet Take 4 tablets by mouth once daily. - carvedilol (COREG) 12.5 mg tablet Take 1 tablet by mouth twice daily. - blood sugar diagnostic (BozukoUCH ULTRA TEST) test strip Test blood sugar(s) 3 times daily. Dx: E11.65, DM. Insulin: Yes - ramipril (ALTACE) 10 mg capsule Take 1 capsule by mouth once daily. - Cholecalciferol, Vitamin D3, 125 mcg (5,000 unit) cap Take 1 capsule by mouth every other day. May switch to 2000 units daily - insulin needles, DISPOSABLE, (PEN NEEDLE) 31 gauge x 5/16 ndle Use one needle per dose. 4 per day. - ACETAMINOPHEN (TYLENOL ORAL) Take 650 mg by mouth every 4 hours as needed. - Aspirin 81 mg ORAL Tab Take 81 mg by mouth once daily. - ketoconazole (NIZORAL) 2 % cream Apply 1 application to affected area once daily. I have interviewed and examined the patient. I have reviewed the medical record and/or the pre-anesthesia evaluation, pertinent labs, and test results. This contains updated information obtained within 48 hours of Surgery/Procedure. SIGNATURE: Joy Cooper MD PATIENT NAME: Kendrick Barraza DATE: November 11, 2021 TIME: 6:56 AM CSN: [id number] [facility] 11-11-2021 [facility] HNO ID: [id number] Author: Steve Yee PA-C Service: Orthopaedic Surgery Author Type: Physician Dormitory Maid Type: Discharge Summary Filed: 11/12/2021 10:58 AM Note Text: Attestation signed by Glendy Ochoa MD at 11/12/2021 2:14 PM I agree with the above discharge summary. Reviewed, authenticated, and electronically signed by Glendy Ochoa MD DISCHARGE SUMMARY PATIENT NAME: Kendrick Barraza ADMISSION DATE: 11/11/2021 DISCHARGE DATE: 11/12/2021 PATIENT DISCHARGE SUMMARY C O N F I D E N T I A L I N F O R M A T I O N The following is a brief overview of your hospitalization. Some of the information contained on this summary may be confidential. This information should be kept in your records and should be shared with your regular doctor. These instructions explain what you or your health and social care teacher need to do to continue your care at home or at another healthcare facility - Please go over these instructions with your nurse and health and social care teacher. - If you are not sure about something, please ask. Highest Readmission Risk Score: 8 The 30 day readmissions risk score is derived from an internally validated risk model which evaluates patient level characteristics, utilization history, medication orders and lab results up until the day of discharge. Patients with a score of 40 or above are considered highest risk for readmission. Specific patient level drivers will be listed at the bottom of the summary. The 30 day readmissions risk score is derived from an internally validated risk model which evaluates patient level characteristics, utilization history, medication orders and lab results up until the day of discharge. Patients with a score of 40 or above are considered highest risk for readmission. Where I Will be Going after Discharge: Home with Home Health My Condition at Discharge: Stable PRINCIPAL DIAGNOSIS: (Reason after study for this admission): Procedure(s): ARTHROPLASTY REPLACE JOINT TOTAL HIP OTHER DIAGNOSES: Patient Active Hospital Problem List: No active hospital problems. OPERATIONS PERFORMED: Procedure(s): ARTHROPLASTY REPLACE JOINT TOTAL HIP My Doctors and Medical Team: - My Main Hospital Doctor: Doctor Glendy Ochoa MD PHYSICAL EXAM: See daily progress note Vitals: BP 118/52 Pulse 68 Temp 36.4 ?C (97.5 ?F) (Oral) Resp 16 Ht 175.3 cm (5' 9) Wt 92.3 kg (203 lb 7.8 oz) SpO2 98% BMI 30.05 kg/m? SUMMARY OF WHAT HAPPENED WHILE PATIENT WAS IN THE HOSPITAL: The patient was followed in the office by Dr. Ochoa in clinic for left hip osteoarthritis. It was determined the patient would benefit from left total hip arthoplasty. The procedure, its risks, benefits, and potential complications were discussed in detail prior to surgery. The patient conveyed understanding of all topics and consented to surgery. The patient was admitted to the hospital. Underwent an elective left total hip arthroplasty on 11/11/[address] Ochoa. The patient tolerated the procedure well and was returned to the Post Anesthesia Care Unit in stable condition. Vital signs per PACU protocol. VTE risk assessment performed. O2 therapy monitored by Respiratory Therapy to include incentive spirometry, ADL, wound and support per physician order set postop protocol. PT and OT to evaluate and treat. IV antibiotics, antiemetics, ASA for DVT prophylaxis and pain medication were given. The patient progressed with physical therapy. Lab values and vital signs were monitored and remained stable. The incision remained clean, dry and intact. Thigh and calf are not swollen. No signs of DVT or infection. The patient progressed with physical therapy towards goal of safety and independence. Patient was determined safe for discharge to home with home health care on 11/12/2021. TREATMENT / WOUND CARE: If you have any concerns about your wound, please contact the office. Keep wound and incision area clean and dry. You may remove your dressing on POD #7. If it remains drainage-free, you may leave the dressing off, keeping the wound open to air. If there is any drainage please contact the office You may not submerge the wound under standing water for 6 weeks time after surgery (i.e. no baths, no hot tubs, no swimming pools). Do not rub the wound, but rather pat dry. If you have non-absorbable sutures in place, these will be taken out on your 1st follow-up appointment. Observe the wound for signs of infection, including increased redness, swelling, or persistent drainage around the incision site. It is normal for your wound to be warmer immediately after surgery (even up to 4-6 weeks after surgery). If (more content not included)... [facility] CONSULTon 11-11-2021 CONSULT HNO ID: [id number] Author: Franco Le MD Service: General Internal Medicine Author Type: Physician Type: Consults Filed: 11/17/2021 5:45 PM Note Text: [facility]- Consultation KENDRICK BARRAZA : 1950 AGE: 70 SEX: M ACCTNUM: [id number] [facility] [place]: [facility] LOCATION: [facility] [place] ATTENDING PHYSICIAN: GLENDY OCHOA DATE OF SERVICE: 11/11/2021 TIME OF SERVICE: 01:30 PM REASON FOR CONSULTATION: Postop medical management. HISTORY: This is a 70-year-old white gentleman, whose significant medical history includes osteoarthritis, hypertension, coronary artery disease, congestive heart failure, prostate CA, diabetes mellitus type 2, and chronic lymphocytic leukemia. Patient underwent elective left total hip arthroplasty. Patient had uneventful intraoperative course. Estimated blood loss 200 mL. During initial evaluation, patient alert, and answering questions appropriately. He was denying any nausea, lightheadedness, dizziness, shortness of breath, or chest pain. PAST MEDICAL HISTORY: As mentioned above. PAST SURGICAL HISTORY: Include endoscopy and cardiac catheterization with 3 stent placement, and tonsillectomy. FAMILY HISTORY: Positive for stroke, heart disease and prostate cancer. SOCIAL HISTORY: He is . Does not smoke or drink alcohol. MEDICATIONS: His current home medication list reviewed. ALLERGIES: He is allergic to ciprofloxacin caused vomiting, Crestor intolerance, Lipitor caused joint pain, Pravachol myalgia, atorvastatin muscle ache. REVIEW OF SYSTEMS: HEENT and Neck: History of TIA with mild right-sided residual weakness. No history of seizure disorder. No history of glaucoma. No dysphagia or odynophagia. No history of asthma, COPD, or obstructive sleep apnea. No dyspnea with exertion. History of coronary artery disease, congestive heart failure, or cardiac arrhythmia. No cardiac arrhythmia. History of hypertension and hyperlipidemia. History of stent placement. Has not had any chest pain with ambulation. No history of bleeding, peptic ulcer disease, hepatitis, or colitis. Claims good appetite. Regular bowel movement. No chronic dysuria, hematuria, several night micturition. No recent urinary tract infection. History of diabetes, fairly controlled. No history of DVTs, paresthesia of the feet. PHYSICAL EXAM: General: Elderly white gentleman, alert. Eyes: Sclerae anicteric. Neck: Good carotid pulse felt. No thyromegaly appreciated. Lungs: Clear to auscultation bilaterally. Cardiovascular: S1, S2. Regular rhythm. Abdomen: Soft, nontender, nondistended. No mass felt. Lower Extremities: No ankle edema noted. IMPRESSION AND RECOMMENDATIONS: 1. Osteoarthritis status post left total hip arthroplasty. Deep venous thrombosis prophylaxis as ordered by Dr. Olson. 2. Diabetes mellitus type 2. Continue Glucophage and Lantus, and we will add sliding scale. Patient does not wish to continue NovoLog 5 units 3 times a day. While in the hospital. 3. Hypertension. Continue oriented. Also takes Coreg. 4. Congestive heart failure, clinically well compensated. 5. Hyperlipidemia. Continue Zetia. 6. Prostate cancer. 7. Hold other medication for now. Thank you very much for kind referral. Continue to follow. Follow him while in the hospital. Franco Le M.D. Internal Medicine SYLVIE:[id number] /[id number] [facility] NURSING PROGon 11-11-2021 NURSING PROG HNO ID: [id number] Author: Jenny Roman, RN Service: ? Author Type: Registered Nurse Type: Nursing Progress Note Filed: 11/11/2021 10:44 AM Note Text: [id number] Received from or Drowsy Monitor sinus ruth Krystin drip to iv left hand lr kvo with krystin titrating krystin drip to keep map 80 1005 Krystin drip from 30 to 27mcg 1010 Krystin drip from 27 to 24mcg 1010 Pt drowy No c/o pain 1015 Krystin drip from 24 to 21 mcg 1020 Krystin drip from 21 to 17 mcg 1025 Krystin drip from 17 to 14 mcg 1030 Krystin drip from 14 to 10mcg 1035 Krystin drip off per kulwinder harris [facility] OPERATIVE NOon 11-11-2021 OPERATIVE NO HNO ID: [id number] Author: Glendy Ochoa MD Service: Orthopaedic Surgery Author Type: Physician Type: Operative Report Filed: 11/11/2021 9:27 AM Note Text: PATIENT NAME: Kendrick Barraza CSN: [id number] LOG ID: [id number] Surgery Date: 11/11/2021 Surgeon(s) and Dormitory Maid(s): James Quiroz NP - Parking Meter Collector Surgeon(s) and Role: * Glendy Ochoa MD - Primary No qualified orthopedic resident was available 22 modifier -- none BMI: Estimated body mass index is 29.53 kg/m? as calculated from the following: Height as of 11/01/21: 175.3 cm (5' 9). Weight as of 11/01/21: 90.7 kg (200 lb). Procedure(s): Procedure(s) (LRB): ARTHROPLASTY REPLACE JOINT TOTAL HIP (Left) Anesthesia: Choice - Anesthesia Consult Incision Start: 8:05 AM Incision Stop: 9:50 AM approx Attestation: I was present for all of the critical portions of the operation and performed all critical portions. The resident/fellow/PA/SALES & SERVICE ASSOCIATE assisted during exposure, implantation of the device, and deep closure. The PA /PAINTINGS CONSERVATOR performed the closure of the subcutaneous tissue and skin. I was scrubbed from skin incision through the closure of the iliotibial band and gluteus meir and was immediately available for the duration of the entire case. Preop Diagnosis: Pre-Op Diagnosis Codes: * Primary osteoarthritis of left hip [M16.12] Postop Diagnosis: Same as Pre-Op Diagnosis Codes: * Primary osteoarthritis of left hip [M16.12] Implants: Implant Name Type Inv. Item Serial No. Study Abroad Advisor Lot No. LRB No. Used Action SHELL G7 64MM H OFFSET HEMISPHERE OSSEOTI ACETABULAR 4 HOLE LIMIT HIP - [id number] Joint - Hip SHELL G7 64MM H OFFSET HEMISPHERE OSSEOTI ACETABULAR 4 HOLE LIMIT HIP [employer] [id number] Left 1 Implanted LINER G7 50MM H ACETABULAR 2 MOBILITY Implant [employer] [id number] Left 1 Implanted SCREW TRILOGY 6.5MM TIVANIUM 20MM BONE SELF TAP STERILE HIP CORTICAL - [id number] Screw SCREW TRILOGY 6.5MM TIVANIUM 20MM BONE SELF TAP STERILE HIP CORTICAL [employer] [id number] Left 1 Implanted STEM TAPERLOC 133D 15 PPS 34.3MM FEMORAL TYPE 1 TAPER COMPLETE REDUCED - [id number] Joint STEM TAPERLOC 133D 15 PPS 34.3MM FEMORAL TYPE 1 TAPER COMPLETE REDUCED [employer] [id number] Left 1 Implanted LONGEVITY ACETABULAR LINER H 28MM X 50MM POLYETHYLENE Implant [employer] [id number] Left 1 Implanted HEAD G7 28MM BIOLOX DELTA FEMORAL HIP - [id number] Joint - Hip HEAD G7 28MM BIOLOX DELTA FEMORAL HIP [employer] [id number] Left 1 Implanted SLEEVE G7 -3MM OFFSET TAPER BIOLOX DELTA OPTION TITANIUM CENTERING TYPE 1 - [id number] Joint - Hip SLEEVE G7 -3MM OFFSET TAPER BIOLOX DELTA OPTION TITANIUM CENTERING TYPE 1 [employer] [id number] Left 1 Implanted Problem List: ACTIVE PROBLEM LIST Essential Hypertension, Benign Mixed Hyperlipidemia Vitamin D Deficiency Cll (Chronic Lymphocytic Leukemia) (Hcc) Controlled Type 2 Diabetes Mellitus Without Complication, With Long-Term Current Use of Insulin (Hcc) Chf (Congestive Heart Failure) (Hcc) Cad (Coronary Artery Disease) Cva, Old, Cognitive Deficits Statin Intolerance Prostate Cancer (Hcc) Bph (Benign Prostatic Hyperplasia) Elevated Psa Metastatic Cancer to Intra-Abdominal Lymph Nodes (Hcc) Hot Flashes Sebaceous Cyst Primary Osteoarthritis of Left Hip OPERATIVE INDICATIONS: The patient has a history of progressive left hip pain and arthritis. Their hip pain is severe with activity and has progressed significantly over time . X-rays reveal [id number]-zulbam loss of articular cartilage of the hip with osteophytes consistent with advanced hip osteoarthritis. Non-operative treatment has been attempted, but is now ineffective at controlling symptoms during normal daily activities. Motion has become limited and rotation severely restricted. A total hip arthroplasty was recommended at this time. The risks, benefits and potential complications of the arthroplasty surgery were discussed with the patient in detail. Specific details of the procedure, hospitalization, recovery, rehabilitation, and long-term precautions were also provided. Pre-operative teaching was provided. Implant/prosthesis selection was outlined, and the many options available were explained; the final choice will be made at the time of the procedure to match the anatomy and condition of the bone, ligaments, tendons, and muscles. Understanding of all topics was conveyed to me by the patient, and consent was given to proceed with a left total hip arthroplasty. The patient was evaluated medically for pre-operative optimization. Christiana-operative blood management and the potential for blood transfusion were discussed with risks and options clearly outlined. OPERATIVE PROCEDURE: The patient was identified and brought into the Operating Room by the anesthesia and nursing team. Satisfactoryl anesthesia was successfully performed. Intravenous antibiotic prophylaxis dosing was con (more content not included)... Normal [facility] SURGICAL PATHOLOGYon 022 CASE REPORT Normal [facility] Comment on above: Order Comment: Speci men Type: SPECIMEN FROM BONEOrdering Facility: [facility] Address: [address] [place] [phone] Result Comment: Surg [facility] Pathology Report Case: [id number] Authorizing Provider: Glendy Ochoa MD Collected: 11/11/2021 08:26 AM Ordering Location: [facility] Surgery Received: 11/11/2021 10:33 AM Pathologist: Fabian Carrington MD Specimen: FEMORAL HEAD LEFT Performed By: #### S ####[facility] LABCLIA [id number] [address] FINAL DIAGNOSIS [facility] Comment on above: Order Comment: Speci men Type: SPECIMEN FROM BONEOrdering Facility: [facility] Address: [address] [place] [address] Result Comment: A. F emoral head, left, arthroplasty: - Severe degenerative joint disease, with subchondral cystic changes. - Intramedullary lymphoid aggregates, consistent with the patient's known history of chronic lymphocytic leukemia. SEK/FSFrancis/kr 11/14/2021 Performed By: #### S ####[facility] LABCLIA [id number] [address] OF [facility] FINAL PERFORMING LAB [facility] Comment on above: Order Comment: Speci men Type: SPECIMEN FROM BONEOrdering Facility: [facility] Address: [address] [place] [address] Result Comment: Diag nostic interpretation performed at [facility], [address] [place] [address] CLIA# [id number] Breaker Operator: Giovanny Cabrera M.D. Performed By: #### S ####[facility] LABCLIA [id number] [address] [place] [facility] Comment on above: Order Comment: Speci men Type: SPECIMEN FROM BONEOrdering Facility: [facility] Address: [address] [place] [address] Result Comment: A. F EMORAL HEAD LEFT. Received in formalin, labeled femoral head left is a misshapen femoral head that measures 7.8 x 5.8 x 5.4 cm. A minimal amount of adherent tissue is grossly present. A moderate amount of osteophyte formation is present along the periphery. An area of erosion and eburnation is grossly present that measures 5.9 cm in greatest dimension. The specimen is sectioned with a band saw to reveal hard gan-yellow trabecular bone beneath the area of eburnation and a subchondral cyst that measures 1.3 x 1.0 x 0.8 cm. There are no areas of softening or hemorrhage grossly identified. Data Analytics Chief Scientist sections are submitted in formalin as follows: A1 soft tissue entirely, A2 femoral head with subchondral cyst following decalcification, A3 femoral neck with osteophyte formation following decalcification. JGS/mm 11/11/2021 Gross examination performed at [facility], [facility] [place] [address] CLIA# [id number] Performed By: #### S ####[facility] LABCLIA [id number] [facility] [id number] THERAPY NTon 11-11-2021 THERAPY NT HNO ID: [id number] Author: Kamala Borges, PT Service: ? Author Type: Physical Therapist Type: Therapy (PT/OT/Speech/Resp) Filed: 11/11/2021 4:34 PM Note Text: Physical Therapy Evaluation SERVICE DATE: 11/11/2021 SERVICE TIME: 1432 to 1534 ROOM: [place] [address] Recommended Discharge Disposition: Home PT Recommended Discharge Disposition Comments: Pt currently functioning below baseline s/p L BJ; Pt demonstrating increased pain, post-op edema, decreased LLE ROM, decreased LLE strength, impaired activity tolerance, impaired balance, and overall decreased functional mobility requiring continued skilled services post acute stay to address deficits and assist pt to reaching PLOF. Anticipated Discharge Needs: Physical Assist at Home;Supervision at Home Physical Assist at Home for: Laundry;Transportation;Shopp ing Supervision at Home due to: Other: See Comment (Initially for optimal safety) Recommended Discharge Equipment: No equipment needs anticipated PT 6 Clicks Score: 17 Precautions/Activity Restrictions: Fall Risk;Lines/Tubes/Drains;Weig ht Bearing Restrictions;Total Hip Replacement Precaution/Activity Restriction Comments: standard Extremity With Weight Bearing Restricted: Left Lower Extremity Left Lower Extremity Weight Bearing Status: WBAT Total Hip Replacement Precautions: Posterior Current Hospital Course: s/p L BJ Reason for Hospital Admission: Primary osteoarthritis of left hip Relevant Past Medical History: CAD X 4 stents, CHF, HTN, HLD, CLL, DM, Diverticulosis, PVC, Pleural effusion Response to Therapy Interventions: Good participation in activities, Improved tolerance for activity, Low activity tolerance, Pain, Requires additional time to complete activities Continue skilled needs due to: Functional mobility/skill impairments, Safety concerns Physical Therapy Problem List: Education Deficit;Pain;Edema;Impaired Self Care;Decreased Activity Tolerance;Decreased Range Of Motion;Decreased Strength;Functional Mobility Impairment;Balance Impaired Treatment Interventions: Education;Self Care / Home Management;Energy Conservation Training;Joint Mobility;Strengthening;Funct ional Mobility Training;Balance Training;Modalities;Edema Management;Pain Management;Orthotic Management and Training Modalities: Ice Plan for next visit: Bed mobility, Chair transfer training, Edema management, Fall prevention, Family instruction, Gait training, Exercise instruction/handout, Pre-gait activities, Sit to Stand Transfers, Sitting balance, Stairs training, Standing Balance, Standing Tolerance, Walker Training Home Environment Patient Lives With: Spouse Assistance 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 Will be off for one week) Entry To Home: Stairs;With Rail (bilateral rail) Number Of Stairs Into Home: 2 Number Of Stairs To Bed/Bath: 0 Tub/Shower Type: tub shower, + grab bars, + shower bench, + HHSH Laundry: main floor - can complete Equipment Owned: Cane;Wheeled Walker;Extended tub bench;Grab Bars-Toilet;Grab Bars-Shower;Hand Held Shower;Elevated Toilet Seat;Lift Chair;Rollator;Hospital Bed;Long Handled Shoe Horn;Sock Aid;Nursing Program Director Prior Functional Level: Within Functional Limits;Required Assistance Assistance Required With: Shopping;Finances Prior Functional Level Comments: Pt reports indepedence with ADLs and IADLs, Pt reports spouse assists with grocery shopping and finances. + driving, Pt reports use of cane for ambulation and reports that he gets dizzy when making quick turns. Denies any falls in the past 6 months Patient Report: Pt reports practicing exercises and techniques prior to surgery that he found on the internet. Bloody urine. Agreeable to PT, cleared with RN CURRENT FUNCTIONAL STATUS: Most recent performance Current Functional Mobility Assist Level Additional Information Rolling Supine to Sit Minimal Assistance;Additional Information Verbal and tactile cues provided for sequencing, pt able to manage BLE to EOB, however requires Ladi for trunk to sit upright at EOB; HOB flat, no use of handrails Sit to Supine Additional Information OOB in bedside chair at session end Scooting Contact Guard Assistance;Additional Information fwd/retro while maintaining precautions Sit to Stand Contact Guard Assistance;Additional Information Cues for sequencing, optimal positioning of LLE, using UE from surface, and transitioning BUE to FWW. Pt performs safe transition to standing, reports Amazing, no pain at all. Stand to Sit Contact Guard Assistance;Additional Information Cues for safe approach, optimal postioning for LLE, feeling BLE against surface, reaching UE back to surface, and slow descent to sit. Pt follows cues appropriately and demonstrates safety throughout Bed to Chair Toilet/Commode Gait Contact Guard Assistance;Additional Information Gait Device: Wheeled Walker;Other: See Comment (gait belt) Gait Distance (feet): 1 X 30 (more content not included)... [facility] XR PELVIS 1V APon 11-11-2021 XR PELVIS 1V AP * * *Final Report* * * DATE OF EXAM: Nov 11 2021 10:37AM MDX 5239 - XR PELVIS 1V AP / PROCEDURE REASON: Post-operative / post-procedure assessment, asymptomatic * * * * Physician Interpretation * * * * Pelvis Left hip replacement Findings: AP of the mid and lower pelvis and upper thighs were performed. Status post left total hip arthroplasty with a non-cemented femoral stem. Alignment appears anatomic. There is air in the lateral soft tissues. IMPRESSION: Satisfactory postoperative exam Appliances Sample Maker: AMARI Transcribe Date/Time: Nov 11 2021 10:43A Dictated by : CALVIN BUTLER MD This examination was interpreted and the report reviewed and electronically signed by: CALVIN BUTLER MD on Nov 11 2021 10:43AM EST [id number] [facility] KENDRICK BARRAZA ([id number]) 1950 M Date Time Provider Department 10/23/21 GLENDY OCHOA During your visit today, we recorded the following information about you: NETO Buckley 10/28/2021 1:10 PM Signed TOTAL JOINT COMPLETE CARE PROGRAM PRE-OPERATIVE TEACHING Service Date: 10/28/2021 Service Time: 1:01 PM Date of : 1950 Gender: male Date of Surgery: 11/11/21 Procedure: Left Total Hip Replacement Complete Care Program was discussed with the patient: [employer] Identification: Patient identified a health and social care teacher to help when discharged to home: and kids Home Environment: Home Layout: Ranch, Entry Steps: 3 with rail, Bedroom Location: 1st floor, Bathroom Location: 1st floor and tub shower with built in grab bars. 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 Discussed with patient importance of attending joint education class and provided date and times of class: YES paper copy Patient received Joint Education Binder: Yes Patient plans discharge home with [facility]. SIGNATURE: NETO Buckley PATIENT NAME: Kendrick Barraza DATE: October 23, 2021 TIME: 6:18 AM Allergies As of Date: 10/23/2021 Noted Allergy Reaction CIPROFLOXACIN 03/30/2017 11 - Vomiting Comments: dizziness CRESTOR (ROSUVASTATIN) 07/15/2006 5 - Intolerance Comments: Severe myalgias; could not work because so severe LIPITOR (ATORVASTATIN CALCIUM) 11/20/2011 14 - Other: See Comments Comments: Joint pain PRAVACHOL (PRAVASTATIN SODIUM) 02/09/2012 5 - Intolerance Comments: myalgias STATINS ([id number] REDUCTAS*07/20/2009 5 - Intolerance Comments: Muscle aches; so bad cannot move Date Reviewed: 10/08/2021 Reviewed by: Shauna Marte RN - Fully Assessed Reason for Visit: Pre-Op Teaching [134] Prescriptions as of 10/28/2021 - ezetimibe (ZETIA) 10 mg tablet Take 1 tablet by mouth once daily. - metFORMIN ER (GLUCOPHAGE XR) 500 mg 24 hr tablet Take 4 tablets by mouth once daily. - carvedilol (COREG) 12.5 mg tablet Take 1 tablet by mouth twice daily. - insulin glargine (LANTUS SOLOSTAR U-100 INSULIN) 100 unit/mL (3 mL) Inject 8 Units subcutaneously daily at bedtime. (Adjust as indicated) - blood sugar diagnostic (BozukoUCH ULTRA TEST) test strip Test blood sugar(s) 3 times daily. Dx: E11.65, DM. Insulin: Yes - insulin aspart U-100 (NOVOLOG FLEXPEN U-100 INSULIN) 100 unit/mL (3 mL) Inject 6 Units subcutaneously three times daily before meals. As directed--only take if eating a meal - ramipril (ALTACE) 10 mg capsule Take 1 capsule by mouth once daily. - Cholecalciferol, Vitamin D3, 125 mcg (5,000 unit) cap Take 1 capsule by mouth every other day. May switch to 2000 units daily - clopidogrel (PLAVIX) 75 mg tablet Take 75 mg by mouth once daily. - insulin needles, DISPOSABLE, (PEN NEEDLE) 31 gauge x 5/16 ndle Use one needle per dose. 4 per day. - ketoconazole (NIZORAL) 2 % cream Apply 1 application to affected area once daily. - ACETAMINOPHEN (TYLENOL ORAL) Take 650 mg by mouth every 4 hours as needed. - Aspirin 81 mg ORAL Tab Take 81 mg by mouth once daily. Problem List As Of Date 10/23/2021 Noted Resolved DM w/o complication type II [E11.9] 07/15/2006 12/22/2011 Essential hypertension, benign [I10] 07/15/2006 Mixed hyperlipidemia [E78.2] 07/22/2006 Vitamin D deficiency [E55.9] 05/02/2011 Pleural effusion [J90] 11/19/2011 12/11/2014 CLL (chronic lymphocytic leukemia) [C91.10] 11/20/2011 Type II or unspecified type diabetes mellitus w*12/11/2011 05/21/2015 CVA (cerebral infarction) (HCC) [I63.9] 12/22/2011 07/18/2014 CHF (congestive heart failure) [I50.9] 12/22/2011 CAD (coronary artery disease) [I25.10] 12/22/2011 CVA, old, cognitive deficits [I69.319] 09/15/2012 Statin intolerance [Z78.9] 11/03/2013 BMI 39.0-39.9,adult [Z68.39] 04/16/2017 Prostate cancer (HCC) [C61] 12/11/2014 BPH (benign prostatic hyperplasia) [N40.0] 12/11/2014 Elevated PSA [R97.20] 12/27/2014 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*03/06/2015 Hot flashes [R23.2] 12/27/2015 Sebaceous cyst [L72.3] 05/21/2016 Class 1 obesity due to excess calories with bod*09/30/2017 Uncontrolled type 2 diabetes mellitus with hype*01/19/2019 Encounter Status:Closed by TOMAS LOPEZ on 10/28/21 Normal [facility] 7 - EDon 09-21-2020 Anion gap [Moles/Vol] 10 mmol/L Normal 7-17 [facility] Comment on above: Performed By: #### C 7ED #### [facility] (DEFAULT) [address] [address] Chloride [Moles/Vol] 105 mmol/L Normal 98-108 [facility] Comment on above: Performed By: #### C 7ED #### [facility] (DEFAULT) [address] [address] CO2 [Moles/Vol] 25 mmol/L Normal 22-30 [facility] Comment on above: Performed By: #### C 7ED #### [facility] (DEFAULT) [address] [address] Creatinine [Mass/Vol] 1.00 mg/dL Normal 0.70-1.30 [facility] Comment on above: Performed By: #### C 7ED #### [facility] (DEFAULT) [address] [address] EST GFR, >=60 Normal >=60 [facility] Comment on above: Performed By: #### C 7ED #### [facility] (DEFAULT) [address] [address] EST GFR,Non >=60 Normal >=60 [facility] Comment on above: Performed By: #### C 7ED #### [facility] (DEFAULT) [address] [place] [address] Glucose [Mass/Vol] 131 mg/dL High 70-99 [facility] Comment on above: Performed By: #### C 7ED #### [facility] (DEFAULT) [address] [place] [address] Osmolality [Osmolality] 290 mosm/kg Normal 278-305 [facility] Comment on above: Performed By: #### C 7ED #### [facility] (DEFAULT) [address] [place] [address] Potassium [Moles/Vol] 4.2 mmol/L Normal 3.5-5.0 [facility] Comment on above: Performed By: #### C 7ED #### [facility] (DEFAULT) [address] [place] [address] Sodium [Moles/Vol] 136 mmol/L Normal 133-143 [facility] Comment on above: Performed By: #### C 7ED #### [facility] (DEFAULT) [address] [place] [address] Urea nitrogen [Mass/Vol] 19 mg/dL Normal 7-22 [facility] Comment on above: Performed By: #### C 7ED #### [facility] (DEFAULT) [address] [place] [address] Urea nitrogen/Creatinine [Mass ratio] 19 mg/mg Normal [facility] Comment on above: Performed By: #### C 7ED #### [facility] (DEFAULT) [address] [place] [address] ECHOCARDIOGRAMon 09-21-2020 Echocardiography ? Left ventricle demonstrates regional dysfunction including apical and other segmental wall motion abnormalities depicted. LVEF is low normal at 51%. ? Diastolic function is abnormal and consistent with impaired relaxation (grade I). Probably normal left atrial pressure. ? Right ventricular function is normal. ? No significant valve disease. ? No prior for comparison. Facility [facility] Patient Information Patient Name Kendrick Barraza Sex Male Indication for Exam Priority: STAT Dx: Stroke determined by clinical assessment [I63.9 (ICD-10-CM)] Comments: Order Question Reason for Exam stroke workup Interpretation Summary ? Left ventricle demonstrates regional dysfunction including apical and other segmental wall motion abnormalities depicted. LVEF is low normal at 51%. ? Diastolic function is abnormal and consistent with impaired relaxation (grade I). Probably normal left atrial pressure. ? Right ventricular function is normal. ? No significant valve disease. ? No prior for comparison. Findings Left Ventricle Chamber size is normal. Normal wall thickness. Wall motion abnormality: See wall scoring diagram. The ejection fraction is 51%. Ejection fraction by modified Flores's rule is low normal (50-55%). Diastolic function is abnormal and consistent with impaired relaxation (grade I). Probably normal left atrial pressure. Right Ventricle Chamber size is normal. Normal wall thickness. Segmental wall motion is normal. Systolic function is normal. Left Atrium Chamber size is normal. Right Atrium Chamber size is normal. Septum Bubble study not performed noting patient age, per protocol. The atrial septum is normal. Mitral Valve Normal appearing leaflets. Leaflet mobility is normal. No regurgitation. No valve stenosis. Aortic Valve Trileaflet valve. Leaflet mobility is normal. No regurgitation. No stenosis. No outflow obstruction is present. Mild LV outflow acceleration without significant resting gradient. Tricuspid Valve Normal leaflets. Leaflet mobility is normal. Trace regurgitation. No stenosis. Pulmonary artery systolic pressure (PASP) is unable to be estimated. Pulmonic Valve Normal structure. No regurgitation. No stenosis. Aorta Sinuses of Valsalva/aortic root size is normal. Ascending aorta size is normal. SOV: 3.78 cm. Ascendin.80 cm. Pericardium Appears normal. No pericardial effusion. IVC/SVC Flow patterns are normal. Pulmonary Artery Pulmonary artery not well visualized. Reading Providers Reading Role Read Date Rhys Vasquez MD [place] 09/21/2020 Wall Scoring Score Index: 1.18 The following segments are hypokinetic: apical anterior, apical lateral and apex. All other segments are normal. Left Heart Measurements LV - Systole LVIDD 4.88 cm IVS 0.87 cm LVIDS 3.6 cm PW 0.96 cm LV RWT 0.39 LV Mass Index 71.6 g/m2 LV EDV BP 121 mL LV ESV BP 59 mL BP EF 51 % LV stroke volume BP (ml) 62 mL LV stroke volume index BP 28.57 mL/m2 LV - Diastole MV pk E juan 0.71 m/s MV pk A juan 0.99 m/s E/A ratio 0.72 e' septal pk juan 0.06 m/s e' lateral pk juan 0.09 m/s Avg e' pk juan 0.08 m/s E/e' septal ratio 11.06 E/e' lateral ratio 8.16 Avg E/e' ratio 9.61 LV - HCM AV LVOT peak gradient 3 mmHg Left Atrium LA size 4.1 cm LA ESV SP 4CH (MOD) 47 mL LA ESV SP 2CH (MOD) 68 mL LA ESV BP (MOD) index 26 mL/m2 Right Heart Measurements RV - 2D RV basal diam 3.68 cm RV mid diam 2.87 cm RV long diam 9.75 cm RV - Doppler TAPSE 2.8 RV S' 15.6 cm/s Right Atrium RA vol index 4CH (MOD) 24.42 mL/m2 Great Vessels Aortic Root - End Diastolic Sinus 3.78 cm STJ 3.74 cm Ascending aorta 3.8 cm Inferior Vena Cava IVC ostium 1.46 cm Doppler Measurements - Aortic Valve Stenosis LVOT diameter 2.5 cm LVOT area 4.91 cm2 LVOT peak juan 0.88 m/s LVOT peak VTI 19.1 cm Stroke Volume 94 cm/mL Stroke volume index 43 Ao peak juan 1.16 m/s AV peak gradient 5 mmHG DI (Vmax) 0.76 DEMARCUS (continuity Vmax) 3.72 cm2 DEMRACUS index (continuity Vmax) 1.72 m/s LVOT stroke volume 94 cm3 LVOT stroke volume index 43.18 ml/m2 Doppler Measurements - Mitral Valve Stenosis MV pk E juan 0.71 m/s MV pk A juan 0.99 m/s E/A ratio 0.72 MV stenosis pressure 1/2 time 53 ms MV valve area p 1/2 method 4.15 cm2 PISA-MS MV pk E juan 0.71 m/s Doppler Measurements - Tricuspid Valve Stenosis IVC ostium 1.46 cm Doppler Measurements - Pulmonic Valve Stenosis PV PK JUAN 0.95 m/s PV peak gradient 4 mmHg RVOT peak juan 0.78 m/s RVOT peak gradient 2 mmHg Performing Staff Breanna Pinto RDCS Study Details Study(s) performed: complete. Overall study quality was fair and diagnostic. Contrast was not administered (No bubble study, shellie (more content not included)... Normal [facility] MRI BRAIN STROKE WITHOUT CON TRASTon 09-21-2020 MRI BRAIN STROKE WITHOUT CONTRAST EXAM: MRI BRAIN STROKE WITHOUT CONTRAST, 09/20/2020 17:31 PM CLINICAL INDICATIONS: Stroke. Age: 69 years Gender: Male COMPARISON: No prior studies available for comparison. TECHNIQUE: A series of multisequence, multiplanar images of the brain are obtained without intravenous gadolinium-based contrast using standard protocol. FINDINGS: Intracranial: Scattered foci of T2 prolongation in the periventricular and deep white matter are nonspecific but compatible with chronic microvascular changes. No evidence of edema, mass effect, or mass lesion. No evidence of hemorrhage. No diffusion restriction or other evidence of acute infarct is identified. Small remote lacunar infarct in the right basal ganglia. Small remote cortical infarcts in the right parietal lobe. Sellar and parasellar structures are unremarkable on this unenhanced study. No abnormal epidural or subdural collection. Ventricles and sulci are mildly prominent, compatible with parenchymal volume loss. Skull and Extracranial: Minimal mucosal thickening is present in several paranasal sinuses. Bilateral cataract surgery. Skull and extracranial structures are otherwise unremarkable. IMPRESSION: No acute intracranial abnormality or mass effect. Normal [facility] CBC AND ELECTRONIC DIFFon Basophils (Bld) [#/Vol] 10*3/uL Normal 0.00-0.09 [facility] Comment on above: Performed By: #### L [id number] #### [facility] (DEFAULT) [address] [address] Basophils/100 WBC (Bld) 0.3 % Normal [facility] Comment on above: Performed By: #### L [id number] #### [facility] (DEFAULT) [address] [address] DIFF STATUS Electronic Differential Normal [facility] Comment on above: Performed By: #### L [id number] #### [facility] (DEFAULT) [address] [address] Eosinophils (Bld) [#/Vol] 0.17 10*3/uL Normal 0.00-0.48 [facility] Comment on above: Performed By: #### L [id number] #### [facility] (DEFAULT) [address] [address] Eosinophils/100 WBC (Bld) 1.8 % Normal [facility] Comment on above: Performed By: #### L [id number] #### [facility] (DEFAULT) [address] [address] Hematocrit (Bld) [Volume fraction] 48.5 % Normal 39.6-48.8 [facility] Comment on above: Performed By: #### L [id number] #### [facility] (DEFAULT) [address] [address] Hemoglobin (Bld) [Mass/Vol] 16.5 g/dL Normal 13.4-16.8 [facility] Comment on above: Performed By: #### L [id number] #### [facility] (DEFAULT) [address] [address] Immature Grans % 1.6 % Normal [facility] Comment on above: Performed By: #### L [id number] #### [facility] (DEFAULT) [address] [address] Immature Grans Absolute 0.15 K/uL High <=0.08 [facility] Comment on above: Performed By: #### L [id number] #### [facility] (DEFAULT) [address] [place] [address] Lymphocytes (Bld) [#/Vol] 3.48 10*3/uL Normal 0.83-3.57 [facility] Comment on above: Performed By: #### L [id number] #### [facility] (DEFAULT) [address] [address] Lymphocytes/100 WBC (Bld) 37.7 % Normal [facility] Comment on above: Performed By: #### L [id number] #### [facility] (DEFAULT) [address] [place] [address] MCV (RBC) [Entitic vol] 91.7 fL Normal 79.0-94.5 [facility] Comment on above: Performed By: #### L [id number] #### [facility] (DEFAULT) [address] [place] [address] Mean Cell Hgb 31.2 pg Normal 26.1-33.3 [facility] Comment on above: Performed By: #### L [id number] #### [facility] (DEFAULT) [address] [address] Mean Cell Hgb Conc 34.0 g/dL Normal 31.9-36.5 [facility] Comment on above: Performed By: #### L [id number] #### [facility] (DEFAULT) [address] [place] [address] Monocytes (Bld) [#/Vol] 0.35 10*3/uL Normal 0.24-0.93 [facility] Comment on above: Performed By: #### L [id number] #### [facility] (DEFAULT) [address] [address] Monocytes/100 WBC (Bld) 3.8 % Normal [facility] Comment on above: Performed By: #### L [id number] #### [facility] (DEFAULT) [address] [address] Nucleated RBC 0.0 /100 WBC Normal <=0.2 [facility] Comment on above: Performed By: #### L [id number] #### [facility] (DEFAULT) [address] [address] Platelet mean volume (Bld) [Entitic vol] 10.0 fL Normal 8.7-12.3 [facility] Comment on above: Performed By: #### L [id number] #### [facility] (DEFAULT) [address] [address] Platelets (Bld) [#/Vol] 177 10*3/uL Normal 146-337 [facility] Comment on above: Performed By: #### L [id number] #### [facility] (DEFAULT) [address] [place] [address] RBC (Bld) [#/Vol] 5.29 10*6/uL Normal 4.38-5.83 [facility] Comment on above: Performed By: #### L [id number] #### [facility] (DEFAULT) [address] [place] [address] RBC Distribution 13.1 % Normal 10.9-14.3 [facility] Comment on above: Performed By: #### L [id number] #### [facility] (DEFAULT) [address] [place] [address] Segs + Bands Auto 54.8 % Normal [facility] Comment on above: Performed By: #### L [id number] #### [facility] (DEFAULT) [address] [place] [address] Segs + Bands,Absolute Auto 5.04 K/uL Normal 1.57-6.19 [facility] Comment on above: Performed By: #### L [id number] #### [facility] (DEFAULT) [address] [place] [address] WBC (Bld) [#/Vol] 9.22 10*3/uL Normal 3.73-10.10 [facility] Comment on above: Performed By: #### L [id number] #### [facility] (DEFAULT) [address] [place] [address] CHM 7 - EDon 09-20-2020 Anion gap [Moles/Vol] 12 mmol/L Normal 7-17 [facility] Comment on above: Performed By: #### C 7ED, HFP #### [facility] (DEFAULT) [address] [place] [address] Chloride [Moles/Vol] 106 mmol/L Normal 98-108 [facility] Comment on above: Performed By: #### C 7ED, HFP #### [facility] (DEFAULT) [address] [place] [address] CO2 [Moles/Vol] 24 mmol/L Normal 22-30 [facility] Comment on above: Performed By: #### C 7ED, HFP #### [facility] (DEFAULT) [address] [place] [address] Creatinine [Mass/Vol] 1.13 mg/dL Normal 0.70-1.30 [facility] Comment on above: Performed By: #### C 7ED, HFP #### [facility] (DEFAULT) [address] [place] [address] EST GFR, >=60 Normal >=60 [facility] Comment on above: Performed By: #### C SHOSHANA, HFP #### [facility] (DEFAULT) [address] [place] [address] EST GFR,Non >=60 Normal >=60 [facility] Comment on above: Performed By: #### C 7EShila, HFP #### [facility] (DEFAULT) [address] [place] [address] Glucose [Mass/Vol] 161 mg/dL High 70-99 [facility] Comment on above: Performed By: #### C 7EShila, HFP #### [facility] (DEFAULT) [address] [place] [address] Osmolality [Osmolality] 295 mosm/kg Normal 278-305 [facility] Comment on above: Performed By: #### C 7ED, HFP #### [facility] (DEFAULT) [address] [place] [address] Potassium [Moles/Vol] 4.6 mmol/L Normal 3.5-5.0 [facility] Comment on above: Performed By: #### C 7ED, HFP #### [facility] (DEFAULT) [address] [place] [address] Sodium [Moles/Vol] 137 mmol/L Normal 133-143 [facility] Comment on above: Performed By: #### Nesha ANNA, HFP #### [facility] (DEFAULT) [address] [place] [address] Urea nitrogen [Mass/Vol] 21 mg/dL Normal 7-22 [facility] Comment on above: Performed By: #### Nesha ANNA, HFP #### [facility] (DEFAULT) [address] [place] [address] Urea nitrogen/Creatinine [Mass ratio] 19 mg/mg Normal [facility] Comment on above: Performed By: #### Nesha ANNA, HFP #### [facility] (DEFAULT) [address] [place] [address] HEMOGLOBIN A1Con 09-20-2020 Glucose [Mass/Vol] 163 mg/dL Normal [facility] Comment on above: Performed By: #### A 1CB #### [facility] (DEFAULT) [address] [place] [address] HbA1c (Bld) [Mass fraction] 7.3 % High 4.7-5.6 [facility] Comment on above: Performed By: #### A 1CB #### [facility] (DEFAULT) [address] [place] [address] HEPATIC FUNCTION PANELon Albumin [Mass/Vol] 4.2 g/dL Normal 3.5-5.0 [facility] Comment on above: Performed By: #### Nesha ANNA, HFP #### [facility] (DEFAULT) [address] [place] [address] ALP [Catalytic activity/Vol] 42 U/L Normal 32-126 [facility] Comment on above: Performed By: #### Nesha ANNA, HFP #### [facility] (DEFAULT) [address] [place] [address] ALT [Catalytic activity/Vol] 11 U/L Normal 10-52 [facility] Comment on above: Performed By: #### Nesha ANNA, HFP #### [facility] (DEFAULT) [address] [place] [address] AST [Catalytic activity/Vol] 11 U/L Low 14-40 [facility] Comment on above: Performed By: #### Nesha 7ED, HFP #### [facility] (DEFAULT) [address] [place] [address] Bilirubin [Mass/Vol] 0.8 mg/dL Normal <1.5 [facility] Comment on above: Performed By: #### Nesha ANNA, HFP #### [facility] (DEFAULT) [address] [place] [address] Bilirubin.indirect [Mass/Vol] 0.2 mg/dL Normal <0.3 [facility] Comment on above: Performed By: #### Nesha ANNA, HFP #### [facility] (DEFAULT) [address] [place] [address] Protein [Mass/Vol] 6.1 g/dL Low 6.4-8.3 [facility] Comment on above: Performed By: #### Nesha ANNA, HFP #### [facility] (DEFAULT) [address] [place] [address] LIPID PANEL W CALCULATED LDL on 09-20-2020 Calculated LDL Cholesterol 117 mg/dL High 0-99 [facility] Comment on above: Result Comment: [<10 0 mg/dL: Optimal] [100-129 mg/dL: Near Optimal] [130-159 mg/dL: Borderline High] [160-189 mg/dL: High] [>189 mg/dL: Very High] Performed By: #### H KRZYSZTOF #### [facility] (DEFAULT) [address] [place] [address] Cholesterol [Mass/Vol] 184 mg/dL Normal <200 [facility] Comment on above: Result Comment: [<20 0 mg/dL: Desirable] [200-239 mg/dL: Borderline High] [>239 mg/dL: High] Performed By: #### H KRZYSZTOF #### [facility] (DEFAULT) [address] [place] [address] Cholesterol in HDL [Mass/Vol] 42 mg/dL Normal >=40 [facility] Comment on above: Result Comment: [<40 mg/dL: Low (High Risk)] [>59 mg/dL: High (Low Risk)] Performed By: #### H KRZYSZTOF #### [facility] (DEFAULT) [address] [place] [address] Non HDL Cholesterol 142 mg/dL High <130 [facility] Comment on above: Performed By: #### H KRZYSZTOF #### [facility] (DEFAULT) [address] [place] [address] Total Cholesterol/HDL Ratio 4.4 Normal <4.5 [facility] Comment on above: Performed By: #### H KRZYSZTOF #### [facility] (DEFAULT) [address] [place] [address] Triglyceride [Mass/Vol] 127 mg/dL Normal <150 [facility] Comment on above: Result Comment: [<15 0 mg/dL: Desirable] [150-199 mg/dL: Borderline] [200-499 mg/dL: High] [>500 mg/dL: Very High] Performed By: #### H KRZYSZTOF #### [facility] (DEFAULT) [address] [place] [address] NOVEL CORONAVIRUS PCRon -0 SARS-CoV-2 (COVID-19) RNA TONEY+probe Ql (Unsp spec) Not detected Normal NOT DETECTED [facility] Comment on above: Order Comment: Viral transport media or BAL specimen - Collection must be done while wearing N-95 mask, eye protection, gown and gloves. Please label ALL specimens as 2019-nCoV rule out and deliver by hand. This test was performed using real time PCR and has been approved for the qualitative detection of SARS-CoV-2 nucleic acid. The test has been authorized by the FDA under an emergency use authorization for use by authorized laboratories. Result Comment: Nega tive results do not preclude SARS-CoV-2 infection and should not be used as the sole basis for treatment or other patient management decisions. Optimum specimen types and timing for peak viral levels during infections caused by SARS-CoV-2 has not been determined. The possibility of a false negative result should especially be considered if the patient's recent exposures or clinical presentation suggest that SARS-CoV-2 infection is probable, and diagnostic tests for other causes of illness (e.g., other respiratory illness) are negative. Collection of a new specimen and re-testing may be necessary if the patient is critically ill or clinically deteriorating. Performed By: #### L [id number] #### [facility] (DEFAULT) [address] [place] [address] PTINR-STROKEon 09-20-2020 INR Coag (PPP) [Relative time] 1.0 {INR} Normal 0.9-1.1 [facility] Comment on above: Performed By: #### P TT, PTISTR #### [facility] (DEFAULT) [address] [place] [address] PT Coag (PPP) [Time] 13.3 s Normal 11.9-14.2 [facility] Comment on above: Performed By: #### P TT, PTISTR #### [facility] (DEFAULT) [address] [place] [address] PTTon 09-20-2020 aPTT Coag (Bld) [Time] 23.4 s Low 24.0-34.3 [facility] Comment on above: Result Comment: Spec imen integrity checked. Performed By: #### P TT, PTISTR #### [facility] (DEFAULT) [address] [place] [address] TOXICOLOGY SCREEN URINE - UD RGon 09-20-2020 Barbiturates Negative Normal Cutoff: 200 ng/mL [facility] Comment on above: Order Comment: For M edical Purposes Only. Nonforensic screen results are considered presumptive and no confirmatory testing will follow. Drugs are detected by immunoassay or Liquid Chromatography Mass Spectrometry (LC-MS/MS). The LC-MS/MS test was developed and its performance characteristics determined by the Toxicology Laboratory at [facility]. It has not been cleared or approved by the FDA. The laboratory is regulated under CLIA as qualified to perform high-complexity testing. This test is used for clinical purposes and should not be regarded as investigational or for research.The following drugs with their lowest level of detection in ng/ml(LOD) are included in this screen:6 Monoacetylmorphine(300), 7 Aminoflunitrazepam(25), 7 Aminoclonazepam(50),7 hydroxymitragynine (100), Alphahydroxytriazolam(400),Alphahydroxymidazolam (200), Alphahydrozyalprazolam(200), Alprazolam(50), Amitriptyline(50), Amphetamine(250), Atenolol(500),Benzoylecgonine(50), Buprenorphine(100), Bupropion(25),Caffeine(64136),Chlordiazepoxide(50), Chlorpheniramine(100), Chlorpromazine(50), Citalopram(100), Clonazepam(200), Cocaine(25),Codeine(200), Cotinine(500),Desakylflurazepam(50), Desipramine(50), Desmethyldoxepin(100), Dextromethorphan(100), Diazepam(100), Dihydrocodeine(100), Diltazem(50), Diphenhydramine(100),Doxepin(100),EDDP/methadone(100), Ephedrine/Pseudoephedrine(100),Fentanyl(25),Flunitrazepam(100),F luoxetine(200), Flurazepam(50),Gabapentin(1500), Haloperidol(25), Hydrocodone(100), Hydromorphone(200), Imipramine(50), Ketamine(25), Lidocaine(25),Lorazepam(100), Lysergide(LSD)(25),Maprotiline(200), MDA(250), MDMA(250), Meperidine(50),Midazolam (200),Methadone(50),Methamphetamine(500), Methylphenidate(50), Metoprolol(50), Morphine(200),Nalbuphine(50), Naloxone(200), Norbuprenorphine(300), Nordiazepam(100), Norfentanyl(50),Noroxycodone (100), Norpropoxyphene(50), Nortriptyline(50), Olanzapine(200),Oxazepam(200),Oxycodone(100),Oxymorphone(200), Phencyclidine(PCP)(25), Pheniramine(25), Pregabalin(1500), Promethazine(50), Propoxyphene(100), Propanolol(50), Quetiapine(25), Quinidine(500), Ranitidine(500), Risperidone(100), Sertraline(50),Temazepam(100), Thioridazine(100), Tramadol(50), Trazodone(25), Triazolam(100), Trifluoperazine (100),Venlafaxine(50), Verapamil(100), Zolpidem(200) Performed By: #### L [id number] #### [facility] (DEFAULT) [address] [place] [address] Cannabinoids Screen Ql (U) Negative Normal Cutoff: 50 ng/mL [facility] Comment on above: Order Comment: For M edical Purposes Only. Nonforensic screen results are considered presumptive and no confirmatory testing will follow. Drugs are detected by immunoassay or Liquid Chromatography Mass Spectrometry (LC-MS/MS). The LC-MS/MS test was developed and its performance characteristics determined by the Toxicology Laboratory at [facility]. It has not been cleared or approved by the FDA. The laboratory is regulated under CLIA as qualified to perform high-complexity testing. This test is used for clinical purposes and should not be regarded as investigational or for research.The following drugs with their lowest level of detection in ng/ml(LOD) are included in this screen:6 Monoacetylmorphine(300), 7 Aminoflunitrazepam(25), 7 Aminoclonazepam(50),7 hydroxymitragynine (100), Alphahydroxytriazolam(400),Alphahydroxymidazolam (200), Alphahydrozyalprazolam(200), Alprazolam(50), Amitriptyline(50), Amphetamine(250), Atenolol(500),Benzoylecgonine(50), Buprenorphine(100), Bupropion(25),Caffeine(93483),Chlordiazepoxide(50), Chlorpheniramine(100), Chlorpromazine(50), Citalopram(100), Clonazepam(200), Cocaine(25),Codeine(200), Cotinine(500),Desakylflurazepam(50), Desipramine(50), Desmethyldoxepin(100), Dextromethorphan(100), Diazepam(100), Dihydrocodeine(100), Diltazem(50), Diphenhydramine(100),Doxepin(100),EDDP/methadone(100), Ephedrine/Pseudoephedrine(100),Fentanyl(25),Flunitrazepam(100),F luoxetine(200), Flurazepam(50),Gabapentin(1500), Haloperidol(25), Hydrocodone(100), Hydromorphone(200), Imipramine(50), Ketamine(25), Lidocaine(25),Lorazepam(100), Lysergide(LSD)(25),Maprotiline(200), MDA(250), MDMA(250), Meperidine(50),Midazolam (200),Methadone(50),Methamphetamine(500), Methylphenidate(50), Metoprolol(50), Morphine(200),Nalbuphine(50), Naloxone(200), Norbuprenorphine(300), Nordiazepam(100), Norfentanyl(50),Noroxycodone (100), Norpropoxyphene(50), Nortriptyline(50), Olanzapine(200),Oxazepam(200),Oxycodone(100),Oxymorphone(200), Phencyclidine(PCP)(25), Pheniramine(25), Pregabalin(1500), Promethazine(50), Propoxyphene(100), Propanolol(50), Quetiapine(25), Quinidine(500), Ranitidine(500), Risperidone(100), Sertraline(50),Temazepam(100), Thioridazine(100), Tramadol(50), Trazodone(25), Triazolam(100), Trifluoperazine (100),Venlafaxine(50), Verapamil(100), Zolpidem(200) Performed By: #### L [id number] #### [facility] (DEFAULT) [address] [place] [address] Drugs Detected Urine Tox Negative Normal Negative [facility] Comment on above: Order Comment: For M edical Purposes Only. Nonforensic screen results are considered presumptive and no confirmatory testing will follow. Drugs are detected by immunoassay or Liquid Chromatography Mass Spectrometry (LC-MS/MS). The LC-MS/MS test was developed and its performance characteristics determined by the Toxicology Laboratory at [facility]. It has not been cleared or approved by the FDA. The laboratory is regulated under CLIA as qualified to perform high-complexity testing. This test is used for clinical purposes and should not be regarded as investigational or for research.The following drugs with their lowest level of detection in ng/ml(LOD) are included in this screen:6 Monoacetylmorphine(300), 7 Aminoflunitrazepam(25), 7 Aminoclonazepam(50),7 hydroxymitragynine (100), Alphahydroxytriazolam(400),Alphahydroxymidazolam (200), Alphahydrozyalprazolam(200), Alprazolam(50), Amitriptyline(50), Amphetamine(250), Atenolol(500),Benzoylecgonine(50), Buprenorphine(100), Bupropion(25),Caffeine(23970),Chlordiazepoxide(50), Chlorpheniramine(100), Chlorpromazine(50), Citalopram(100), Clonazepam(200), Cocaine(25),Codeine(200), Cotinine(500),Desakylflurazepam(50), Desipramine(50), Desmethyldoxepin(100), Dextromethorphan(100), Diazepam(100), Dihydrocodeine(100), Diltazem(50), Diphenhydramine(100),Doxepin(100),EDDP/methadone(100), Ephedrine/Pseudoephedrine(100),Fentanyl(25),Flunitrazepam(100),F luoxetine(200), Flurazepam(50),Gabapentin(1500), Haloperidol(25), Hydrocodone(100), Hydromorphone(200), Imipramine(50), Ketamine(25), Lidocaine(25),Lorazepam(100), Lysergide(LSD)(25),Maprotiline(200), MDA(250), MDMA(250), Meperidine(50),Midazolam (200),Methadone(50),Methamphetamine(500), Methylphenidate(50), Metoprolol(50), Morphine(200),Nalbuphine(50), Naloxone(200), Norbuprenorphine(300), Nordiazepam(100), Norfentanyl(50),Noroxycodone (100), Norpropoxyphene(50), Nortriptyline(50), Olanzapine(200),Oxazepam(200),Oxycodone(100),Oxymorphone(200), Phencyclidine(PCP)(25), Pheniramine(25), Pregabalin(1500), Promethazine(50), Propoxyphene(100), Propanolol(50), Quetiapine(25), Quinidine(500), Ranitidine(500), Risperidone(100), Sertraline(50),Temazepam(100), Thioridazine(100), Tramadol(50), Trazodone(25), Triazolam(100), Trifluoperazine (100),Venlafaxine(50), Verapamil(100), Zolpidem(200) Performed By: #### L [id number] #### [facility] (DEFAULT) [address] [place] [id number] SAMthien 05-29-2017 [facility] Office Visit (AGCARDWST) -------KENDRICK BARRAZA ([id number]) 1950 MDate Time Provider Wjjcrbstgx30/13/17 11:00 AM LUTHER TAPIA During your visit today, we recorded the following information about you: Pulse Blood pressure Weight Height 66/minute 140/78 114.6 kg 1.753 Lila Tapia MD 05/29/2017 11:19 AM SignedCheck with insurance [employer] on cost of Zetia. Tell them you have tried allthe statinsLIFESTYLE CHANGEA healthy lifestyle is the most important component of your overall treatmentplan. Please give serious thought to the following areas and commit to makinglong term changes.EAT A WHOLE FOOD, PLANT BASED DIETThe nutrition your body gets is more important than the medicine you take.What matters most is the overall way you eat. We encourage you to minimize theuse of animal products (which include dairy and all meats except fatty fish)and use whole, unprocessed plant foods to provide your protein, vitamins andother nutrients. We have a lot of information to share with you on this topic. We also hold Shared Medical Appointments, where you can come visit with in the company of other patients and spend over an hour talking aboutthe challenges of changing the way you eat. This is not a ANDquot;dietANDquot;.It is a way of life that you will keep with you.EXERCISE REGULARLYIt is not important to spend hours in the gym, lifting weights and perspiringheavily. A total of 2-3 hours per week of aerobic (causing you to bemoderately short of breath) exercise is sufficient to improve your health.Talk to us before you begin a new exercise program, if you have heart diseaseor experience shortness of breath or chest pain.REDUCE STRESSChronic emotional and physical stress leads to disease. Ways of reducingstress include meditation, visualization, prayer, yoga and other forms ofrelaxation therapy. Consistency is the davis. Find a technique that works foryou and do it every day.CULTIVATE RELATIONSHIPSLoneliness and isolation have a major negative impact on health. Seek outothers who can love, care for and nurture you. Avoid hurtful relationships.MAINTAIN IDEAL BODY WEIGHTThe best way to do this is to do all the things above. Our bodies naturallyfind the right weight if we keep moving and feed ourselves the right food. Ifyour BMI is greater than 25, we strongly recommend a referral to a weightmanagement program. Please speak to us our your family physician aboutavailable programs.AVOID NICOTINE IN ALL FORMSThis includes all tobacco products, whether chewed, smoked, vaped, or rubbed onthe skin. Smoking cessation programs, which can make use of tobaccosubstitutes, medications to suppress cravings and behavior management, areavailable. Please contact your family physician about programs in your area.Luther Tapia MD 05/29/2017 5:47 PM SignedPERTINENT CARDIAC HISTORYASHD - PCI multiple LAD,Cx 2013CVA - pontine 10/26HL - statin intolerantDMHTNRBBBADHERENCE TO GUIDELINESACE-I or ARB for HF with prior LVEFANDlt;40 (NQF 0081) - N/AASA or Plavix for ASHD (NQF 0067) - metBeta tanya for ASHD with prior NH or prior LVEFANDlt;40 (NQF 0070) - metBeta tanya for HF with prior LVEFANDlt;40 (NQF 0083) - N/AACE-I or ARB for ASHD with DM or prior LVEFANDlt;40 (NQF 0066) - metStatin therapy for ASHD or FHL or DM - intolerantBMI documented and plan if ANDgt;25 (NQF 0421) - lifestyle recommendation formTobacco use screening and referral (NQF 0028) - lifestyle recommendation formRecommendation for whole food, plant based diet - lifestyle recommendation formCLINICAL IMPRESSION/PLAN:Kendrick Barraza has stable ischemic heart disease. He's been advised to continuehis current medication. Blood pressure is well-controlled.He's had no recurrent hematuria. Plavix has been discontinued.He is statin intolerant. He has not yet tried ezetimibe. I suggested he contacthis pharmacy plan and see if he can get an exemption for this.I will see him in 12 months or as needed. If there is increased chest pain orshortness of breath, he has been advised to contact me.Written and verbal health teaching given to patient, patient verbalizesunderstanding and agrees with treatment plan.This note was generated using [employer] voice recognition system, and there may besome incorrect words, spellings, and punctuation that were not noted inchecking the note before saving.DIAGNOSIS FOR VISIT:ASHISTORY OF PRESENT ILLNESSKendrick Barraza returns for follow-up of his coronary disease.He reports stable exercise tolerance. He's had no chest discomfort. He's had noorthopnea and denies edema, syncope, palpitations, TIAs, amaurosis orclaudication.ALLERGIES:ALL ERGIESAllergen Reactions- Ciprofloxacin Vomiting dizziness- Crestor [Rosuvastat* Intolerance Severe myalgias; could not work because so severe- Lipitor [Atorvastat* Other: See Comments Joint pain- Pravachol [Pravasta* Intolerance myalgias- Statins [Statins-Hm* Intolerance Muscle aches; so bad cannot moveCURRENT OUTPATIENT MEDICATIONS:carvedilol (COREG) 12.5 mg tablet Take 1 tablet by mouth twice daily.insulin glargine (LANTUS SOLOSTAR) 100 unit/mL (3 mL) inpn Inject 30 Unitssubcutaneously daily at bedtime. (Adjust as indicated)insulin aspart (NOVOLOG FLEXPEN) 100 unit/mL inpn Inject 10 Unitssubcutaneously three times daily with meals.ramipril (ALTACE) 10 mg capsule Take 1 capsule by mouth once daily.blood sugar diagnostic (ONETOUCH ULTRA TEST) test strip Test blood sugar(s) 6times daily. Dx: E11.65, DM. Insulin: Yesinsulin needles, DISPOSABLE, (PEN NEEDLE) 31 gauge x 5/16ANDquot; ndle Use oneneedle per dose. 4 per day.meloxicam (MOBIC) 15 mg tablet Take 1 tablet by mouth once daily.ketoconazole (NIZORAL) 2 % cream Apply 1 application to affected area oncedaily.Cholecalciferol, Vitamin D3, 5,000 unit cap Take 1 capsule by mouth once daily.leuprolide (LUPRON DEPOT, 4 MONTH,) 30 mg injection Inject 30 mgintramuscularly every 4 months.ANDgt;Compression Knee Highs 30-40 mm KNEE HIGH COMPRESSION STOCKINGS, 30-40 MM,I DX: venous insufficiencyACETAMINOPHEN (TYLENOL ORAL) Take 650 mg by mouth every 4 hours as needed.Aspirin 81 mg ORAL Tab Take 81 mg by mouth once daily.PHYSICAL EXAMINATION:VITAL SIGNS: BP 140/78 Pulse 66 Ht 5' 9ANDquot; (1.75m) Wt 252 lb 11.2 oz(114.6kg) BMI 37.30 kg/(m2).Chest: Clear to percussion and auscultation. Trachea is midline. Air entry isequal. Cardiac: Regular rhythm. S1 and S2 are normal. PMI is nondisplaced.There is a soft systolic ejection murmur without radiation. Carotids arebrisk without bruits. JVP is less than 10 cm. Abdomen: Soft and nontender.There are no pulsatile masses or bruits. No liver enlargement. Bowel soundsare active. Extremities: Trace edema with chronic stasis changes there arebrawny changes without cellulitis.. Pulses are intact and symmetrical.Electronically Signed:Luther Tapia MDVeterans Affairs Ann [facility]bor Healthcare System 2016 11:19 [facility]: AILYN Rosaseferring Provider: LUTHER TAPIA [[id number]]Allergies As of Date: 05/29/2017 Noted Allergy ReactionCIPROFLOXACIN 03/30/2017 11 - Vomiting Comments: dizzinessCRESTOR (ROSUVASTATIN) 07/15/2006 5 - Intolerance Comments: Severe myalgias; could not work because so severeLIPITOR (ATORVASTATIN CALCIUM) 11/20/2011 14 - Other: See Comments Comments: Joint painPRAVACHOL (PRAVASTATIN SODIUM) 02/09/2012 5 - Intolerance Comments: myalgiasSTATINS (GJCEBGO-UGB-DYD REDUCTAS*07/20/2009 5 - Intolerance Comments: Muscle aches; so bad cannot moveDate Reviewed: 05/29/2017Reviewed by: Shawn Kaplan RN - Fully AssessedReason for Visit: Follow Up [171] Cmt: 8 monthPrimary Visit Diagnosis:ASHD (arteriosclerotic heart disease) [I25.10] Other Visit Diagnosis:Other hyperlipidemia [E78.4]Prescriptions as of 05/29/2017 Sig: CARVEDILOL 12.5 MG TABLET Take 1 tablet by mouth twice * INSULIN GLARGINE 100 UNIT/ML * Inject 30 Units subcutaneousl* INSULIN ASPART 100 UNIT/ML BARRAGAN* Inject 10 Units subcutaneousl* RAMIPRIL 10 MG CAPSULE Take 1 capsule by mouth once * BLOOD SUGAR DIAGNOSTIC STRIPS Test blood sugar(s) 6 times d* PEN NEEDLE, DIABETIC 31 GAUGE* Use one needle per dose. 4 pe* MELOXICAM 15 MG TABLET Take 1 tablet by mouth once d* KETOCONAZOLE 2 % TOPICAL CREAM Apply 1 application to affect* CHOLECALCIFEROL (VITAMIN D3) * Take 1 capsule by mouth once * LEUPROLIDE 30 MG (4 MONTH) IN* Inject 30 mg intramuscularly * COMPOUNDED PRESCRIPTION KNEE HIGH COMPRESSION STOCKIN* TYLENOL ORAL Take 650 mg by mouth every 4 * ASPIRIN 81 MG TABLET Take 81 mg by mouth once estelle*Problem List As Of Date 05/29/2017 Noted Resolved DM w/o complication type II [E11.9] INVALID FOR*12/22/2011 Essential hypertension, benign [I10] INVALID FOR* More... Mixed hyperlipidemia [E78.2] INVALID FOR* Vitamin D deficiency [E55.9] INVALID FOR* Pleural effusion [J90] INVALID FOR*12/11/2014 More... CLL (chronic lymphocytic leukemia) [C91.10] INVALID FOR* Type II or unspecified type diabetes mellitus w*INVALID FOR*05/21/2015 More... CVA (cerebral infarction) (HCC) [I63.9] INVALID FOR*07/18/2014 CHF (congestive heart failure) [I50.9] INVALID FOR* CAD (coronary artery disease) [I25.10] INVALID FOR* CVA, old, cognitive deficits [I69.319] INVALID FOR* Statin intolerance [Z78.9] INVALID FOR* BMI 39.0-39.9,adult [Z68.39] 04/16/2017 Prostate cancer (HCC) [C61] INVALID FOR* BPH (benign prostatic hyperplasia) [N40.0] INVALID FOR* Elevated PSA [R97.20] INVALID FOR* 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*INVALID FOR* Diabetes mellitus type 2, uncontrolled, without*INVALID FOR* More... Hot flashes [R23.2] INVALID FOR* Sebaceous cyst [L72.3] INVALID FOR* Uncontrolled type 2 diabetes mellitus without c*INVALID FOR* Class 2 obesity due to excess calories with ser*INVALID FOR* Other instructions from your clinician: Check with insurance company on cost of Zetia. Tell them you have tried all the statins LIFESTYLE CHANGE A healthy lifestyle is the most important component of your overall treatment plan. Please give serious thought to the following areas and commit to making residential changes. EAT A WHOLE FOOD, PLANT BASED DIET The nutrition your body gets is more important than the medicine you take. What matters most is the overall way you eat. We encourage you to minimize the use of animal products (which include dairy and all meats except fatty fish) and use whole, unprocessed plant foods to provide your protein, vitamins and other nutrients. We have a lot of information to share with you on this topic. We also hold Shared Medical Appointments, where you can come visit with Dr. Tapia in the company of other patients and spend over an hour talking about the challenges of changing the way you eat. This is not a diet. It is a way of life that you will keep with you. EXERCISE REGULARLY It is not important to spend hours in the gym, lifting weights and perspiring heavily. A total of 2-3 hours per week of aerobic (causing you to be moderately short of breath) exercise is sufficient to improve your health. Talk to us before you begin a new exercise program, if you have heart disease or experience shortness of breath or chest pain. REDUCE STRESS Chronic emotional and physical stress leads to disease. Ways of reducing stress include meditation, visualization, prayer, yoga and other forms of relaxation therapy. Consistency is the davis. Find a technique that works for you and do it every day. CULTIVATE RELATIONSHIPS Loneliness and isolation have a major negative impact on health. Seek out others who can love, care for and nurture you. Avoid hurtful relationships. MAINTAIN IDEAL BODY WEIGHT The best way to do this is to do all the things above. Our bodies naturally find the right weight if we keep moving and feed ourselves the right food. If your BMI is greater than 25, we strongly recommend a referral to a weight management program. Please speak to us our your family physician about available programs. AVOID NICOTINE IN ALL FORMS This includes all tobacco products, whether chewed, smoked, vaped, or rubbed on the skin. Smoking cessation programs, which can make use of tobacco substitutes, medications to suppress cravings and behavior management, are available. Please contact your family physician about programs in your area.Classic SmartForms filed during this visit:Extended VitalsEncounter Number: [id number] Status:Closed by LUTHER TAPIA MD on 05/29/17 [facility] PROGRESSon 05-29-2017 PROGRESS HNO ID: [id number] thor: Luther Newberry: (none)Author Type: PhysicianType: Progress NotesFiled: 05/29/2017 5:47 PMNote Text:PERTINENT CARDIAC HISTORYASHD - PCI multiple LAD,Cx 2013CVA - pontine 10/26HL - statin intolerantDMHTNRBBBADHERENCE TO GUIDELINESACE-I or ARB for HF with prior LVEF<40 (NQF 0081) - N/AASA or Plavix for ASHD (NQF 0067) - metBeta tanya for ASHD with prior NH or prior LVEF<40 (NQF 0070) - metBeta tanya for HF with prior LVEF<40 (NQF 0083) - N/AACE-I or ARB for ASHD with DM or prior LVEF<40 (NQF 0066) - metStatin therapy for ASHD or FHL or DM - intolerantBMI documented and plan if >25 (NQF 0421) - lifestyle recommendation formTobacco use screening and referral (NQF 0028) - lifestyle recommendationformRecommenda tion for whole food, plant based diet - lifestyle recommendationformCLINICAL IMPRESSION/PLAN:Kendrick Barraza has stable ischemic heart disease. He's been advised tocontinue his current medication. Blood pressure is well-controlled.He's had no recurrent hematuria. Plavix has been discontinued.He is statin intolerant. He has not yet tried ezetimibe. I suggested hecontact his pharmacy plan and see if he can get an exemption for this.I will see him in 12 months or as needed. If there is increased chest painor shortness of breath, he has been advised to contact me.Written and verbal health teaching given to patient, patient verbalizesunderstanding and agrees with treatment plan.This note was generated using [employer] voice recognition system, and theremay be some incorrect words, spellings, and punctuation that were notnoted in checking the note before saving.DIAGNOSIS FOR VISIT:ASHDHISTORY OF PRESENT ILLNESSKendrick Barraza returns for follow-up of his coronary disease.He reports stable exercise tolerance. He's had no chest discomfort. He'shad no orthopnea and denies edema, syncope, palpitations, TIAs, amaurosisor claudication.ALLERGIES:ALLER GIESAllergen Reactions- Ciprofloxacin Vomiting dizziness- Crestor [Rosuvastat* Intolerance Severe myalgias; could not work because so severe- Lipitor [Atorvastat* Other: See Comments Joint pain- Pravachol [Pravasta* Intolerance myalgias- Statins [Statins-Hm* Intolerance Muscle aches; so bad cannot moveCURRENT OUTPATIENT MEDICATIONS:carvedilol (COREG) 12.5 mg tablet Take 1 tablet by mouth twice daily.insulin glargine (LANTUS SOLOSTAR) 100 unit/mL (3 mL) inpn Inject 30 Unitssubcutaneously daily at bedtime. (Adjust as indicated)insulin aspart (NOVOLOG FLEXPEN) 100 unit/mL inpn Inject 10 Unitssubcutaneously three times daily with meals.ramipril (ALTACE) 10 mg capsule Take 1 capsule by mouth once daily.blood sugar diagnostic ([employer] ULTRA TEST) test strip Test bloodsugar(s) 6 times daily. Dx: E11.65, DM. Insulin: Yesinsulin needles, DISPOSABLE, (PEN NEEDLE) 31 gauge x 5/16 ndle Use oneneedle per dose. 4 per day.meloxicam (MOBIC) 15 mg tablet Take 1 tablet by mouth once daily.ketoconazole (NIZORAL) 2 % cream Apply 1 application to affected area oncedaily.Cholecalciferol, Vitamin D3, 5,000 unit cap Take 1 capsule by mouth oncedaily.leuprolide (LUPRON DEPOT, 4 MONTH,) 30 mg injection Inject 30 mgintramuscularly every 4 months.>Compression Knee Highs 30-40 mm KNEE HIGH COMPRESSION STOCKINGS, 30-40MM, I DX: venous insufficiencyACETAMINOPHEN (TYLENOL ORAL) Take 650 mg by mouth every 4 hours as needed.Aspirin 81 mg ORAL Tab Take 81 mg by mouth once daily.PHYSICAL EXAMINATION:VITAL SIGNS: BP 140/78 Pulse 66 Ht 5' 9 (1.75m) Wt 252 lb 11.2 oz(114.6kg) BMI 37.30 kg/(m2).Chest: Clear to percussion and auscultation. Trachea is midline. Airentry is equal. Cardiac: Regular rhythm. S1 and S2 are normal. PMI isnondisplaced. There is a soft systolic ejection murmur without radiation. Carotids are brisk without bruits. JVP is less than 10 cm. Abdomen:Soft and nontender. There are no pulsatile masses or bruits. No liverenlargement. Bowel sounds are active. Extremities: Trace edema withchronic stasis changes there are brawny changes without cellulitis..Pulses are intact and symmetrical.Electronically Signed:Luther Tapia MDTr[facility] Health [facility]2016 11:19 [facility]: Evie Grewal MD [facility] Vital Signs Date Time Vital Sign Value Performing Clinician Facility 03-17-2025 07:12-0400 Body height 170.[address] Evie Grewal MD Work Phone: 6(100)882-464733 [place] [address] 03-17-2025 07:12-0400 Body mass index (BMI) [Ratio] 33.6 kg/m2 Dr. Evie Grewal MD Work Phone: 3(560)651-509688 [place] [address] 03-17-2025 07:12-0400 Body weight 97.[address] Evie Grewal MD Work Phone: 2(713)805-376988 [place] [address] 03-17-2025 07:12-0400 Diastolic blood pressure 82 mm[Hg] Dr. Evie Grewal MD Work Phone: 0(081)345-758588 [place] [address] 03-17-2025 07:12-0400 Heart rate 73 /min Dr. Evie Grewal MD Work Phone: 2(662)627-823433 [place] [address] 03-17-2025 07:12-0400 Respiratory rate 18 /min Dr. Evie Grewal MD Work Phone: 8(701)803-985888 [place] [address] 03-17-2025 07:12-0400 SaO2% (BldA) [Mass fraction] 97 % Dr. Evie Grewal MD Work Phone: 5(123)734-242933 [place] [address] 03-17-2025 07:12-0400 Systolic blood pressure 138 mm[Hg] Dr. Evie Grewal MD Work Phone: 3(559)075-663533 [place] [address] 01-31-2025 14:29-0400 Body temperature 97.9 [degF] Dr. Evie Grewal MD Work Phone: 8(750)106-340033 [place] [address] 01-31-2025 14:29-0400 Diastolic blood pressure 80 mm[Hg] Dr. Evie Grewal MD Work Phone: 4(670)960-385188 [place] [address] 01-31-2025 14:29-0400 Heart rate 71 /min Dr. Evie Grewal MD Work Phone: 6(688)153-107088 [place] [address] 01-31-2025 14:29-0400 Respiratory rate 14 /min Dr. Evie Grewal MD Work Phone: 7(518)281-849188 [place] [address] 01-31-2025 14:29-0400 SaO2% (BldA) [Mass fraction] 96 % Dr. Evie Grewal MD Work Phone: 8(422)746-593488 [place] [address] 01-31-2025 14:29-0400 Systolic blood pressure 154 mm[Hg] Dr. Evie Grewal MD Work Phone: 4(182)477-998588 [place] [address] 01-31-2025 11:51-0400 Body height 170.[address] Evie Grewal MD Work Phone: 4([phone])437-984288 [place] [address] 01-31-2025 11:51-0400 Body mass index (BMI) [Ratio] 33.9 kg/m2 Dr. Evie Grewal MD Work Phone: 4(876)064-145088 [place] [address] 01-31-2025 11:51-0400 Body weight 98.[address] Evie Grewal MD Work Phone: [facility] 01-27-2025 16:34-0400 Diastolic blood pressure 60 mm[Hg] Evie Grewal MD Work Phone: [facility] 01-27-2025 16:34-0400 Systolic blood pressure 128 mm[Hg] Evie Grewal MD Work Phone: [facility] 01-27-2025 15:12-0400 Body height 170.2 cm Evie Grewal MD Work Phone: [facility] 01-27-2025 15:12-0400 Body mass index (BMI) [Ratio] 33.91 kg/m2 Evie Grewal MD Work Phone: [facility] 01-27-2025 15:12-0400 Body temperature 99.39 [degF] Evie Grewal MD Work Phone: [facility] 01-27-2025 15:12-0400 Body weight 98.2 kg Evie Grewal MD Work Phone: [facility] 01-27-2025 15:12-0400 Heart rate 89 /min Evie Grewal MD Work Phone: [facility] 01-27-2025 15:12-0400 Respiratory rate 16 /min Evie Grewal MD Work Phone: [facility] 01-27-2025 15:12-0400 SaO2% (BldA) [Mass fraction] 99 % Evie Grewal MD Work Phone: [facility] 10-14-2024 14:08-0500 Body height 171.5 cm Anna Hernandez HARVEST SUPERVISOR.COFFEE SHOP ATTENDANT Work Phone: [facility] 10-14-2024 14:08-0500 Body mass index (BMI) [Ratio] 34.34 kg/m2 Anna Hernandez HARVEST SUPERVISOR.COFFEE SHOP ATTENDANT Work Phone: [facility] 10-14-2024 14:08-0500 Body weight 101 kg Anna Hernandez HARVEST SUPERVISOR.COFFEE SHOP ATTENDANT Work Phone: [facility] 10-14-2024 14:08-0500 Diastolic blood pressure 79 mm[Hg] Anna Hernandez HARVEST SUPERVISOR.COFFEE SHOP ATTENDANT Work Phone: [facility] 10-14-2024 14:08-0500 Heart rate 92 /min Anna Hernandez HARVEST SUPERVISOR.COFFEE SHOP ATTENDANT Work Phone: [facility] 10-14-2024 14:08-0500 Respiratory rate 16 /min Anna Hernandez HARVEST SUPERVISOR.COFFEE SHOP ATTENDANT Work Phone: [facility] 02-28-2025 14:08-0500 Systolic blood pressure 156 mm[Hg] Anna Hernandez HARVEST SUPERVISOR.COFFEE SHOP ATTENDANT Work Phone: [facility] 07-29-2024 16:20-0500 Body height 171.5 cm Evie Grewal MD Work Phone: [facility] 07-29-2024 16:20-0500 Body mass index (BMI) [Ratio] 34.6 kg/m2 Evie Grewal MD Work Phone: [facility] 07-29-2024 16:20-0500 Body weight 101.7 kg Evie Grewal MD Work Phone: [facility] 07-29-2024 16:20-0500 Diastolic blood pressure 62 mm[Hg] Evie Grewal MD Work Phone: [facility] 07-29-2024 16:20-0500 Heart rate 89 /min Evie Grewal MD Work Phone: [facility] 07-29-2024 16:20-0500 Respiratory rate 16 /min Evie Grewal MD Work Phone: [facility] 07-29-2024 16:20-0500 SaO2% (BldA) [Mass fraction] 98 % Evie Grewal MD Work Phone: [facility] 07-29-2024 16:20-0500 Systolic blood pressure 124 mm[Hg] Evie Grewal MD Work Phone: [facility] 04-08-2024 12:53-0400 Diastolic blood pressure 80 mm[Hg] Anna Hernandez HARVEST SUPERVISOR.COFFEE SHOP ATTENDANT Work Phone: [facility] 04-08-2024 12:53-0400 Heart rate 92 /min Anna Hernandez HARVEST SUPERVISOR.COFFEE SHOP ATTENDANT Work Phone: [facility] 04-08-2024 12:53-0400 Systolic blood pressure 146 mm[Hg] Anna Hernandez HARVEST SUPERVISOR.COFFEE SHOP ATTENDANT Work Phone: [facility] 04-08-2024 12:52-0400 Body mass index (BMI) [Ratio] 31.45 kg/m2 Anna Hernandez HARVEST SUPERVISOR.COFFEE SHOP ATTENDANT Work Phone: [facility] 04-08-2024 12:52-0400 Body weight 96.6 kg Anna Sanchezs HARVEST SUPERVISOR.COFFEE SHOP ATTENDANT Work Phone: [facility] 04-08-2024 12:52-0400 Respiratory rate 16 /min Anna Sanchezs HARVEST SUPERVISOR.COFFEE SHOP ATTENDANT Work Phone: [facility] 12-04-2023 14:03-0400 Body weight 97.52 kg Ronald Adria HARVEST SUPERVISOR.DROP FORGER HELPER Work Phone: [facility] 12-04-2023 14:03-0400 Diastolic blood pressure 68 mm[Hg] Ronald Adria HARVEST SUPERVISOR.DROP FORGER HELPER Work Phone: [facility] 12-04-2023 14:03-0400 Heart rate 85 /min Ronald Adria HARVEST SUPERVISOR.DROP FORGER HELPER Work Phone: [facility] 12-04-2023 14:03-0400 SaO2% (BldA) [Mass fraction] 98 % Ronald Adria HARVEST SUPERVISOR.DROP FORGER HELPER Work Phone: [facility] 12-04-2023 14:03-0400 Systolic blood pressure 130 mm[Hg] Ronald Adria HARVEST SUPERVISOR.DROP FORGER HELPER Work Phone: [facility] 11-14-2023 12:59-0400 Body temperature 98 [degF] Dr. Evie Grewal Work Phone: [facility] 11-14-2023 12:59-0400 Diastolic blood pressure 80 mm[Hg] Dr. Evie Grewal Work Phone: [facility] 11-14-2023 12:59-0400 Heart rate 99 /min Dr. Evie Grewal Work Phone: [facility] 11-14-2023 12:59-0400 Respiratory rate 16 /min Dr. Evie Grewal Work Phone: [facility] 11-14-2023 12:59-0400 SaO2% (BldA) [Mass fraction] 99 % Dr. Evie Grewal Work Phone: 3(149)764-881533 [place] [address] 11-14-2023 12:59-0400 Systolic blood pressure 160 mm[Hg] Dr. Evie Grewal Work Phone: 5(877)514-678288 [place] [address] 11-14-2023 11:38-0400 Body mass index (BMI) [Ratio] 30.9 kg/m2 Dr. Evie Grewal Work Phone: 8(327)003-910433 [place] [address] 11-14-2023 11:38-0400 Body weight 97.[address] Evie Grewal Work Phone: 2(005)710-142888 [place] [address] 11-14-2023 10:17-0400 Body height 177.[address] Evie Grewal Work Phone: 9(579)258-262488 [place] [address] 10-20-2023 09:17-0500 Body mass index (BMI) [Ratio] 31.3 kg/m2 Dr. Evie Grewal Work Phone: 9(124)980-670488 [place] [address] 10-20-2023 09:17-0500 Body weight 96.[address] Evie Grewal Work Phone: 9(999)544-183188 [place] [address] 10-20-2023 09:17-0500 Diastolic blood pressure 78 mm[Hg] Dr. Evie Grewal Work Phone: 9(255)336-131488 [place] [address] 10-20-2023 09:17-0500 Heart rate 68 /min Dr. Evie Grewal Work Phone: 2(431)351-325233 [place] [address] 10-20-2023 09:17-0500 Respiratory rate 18 /min Dr. Evie Grewal Work Phone: 5(910)091-841788 [place] [address] 10-20-2023 09:17-0500 SaO2% (BldA) [Mass fraction] 97 % Dr. Evie Grewal Work Phone: 4(838)741-332088 [place] [address] 10-20-2023 09:17-0500 Systolic blood pressure 156 mm[Hg] Dr. Evie Grewal Work Phone: 7(358)810-742188 [place] [address] 10-09-2023 11:08-0500 Body weight 96.07 kg Evie Grewal MD Work Phone: [facility] 10-09-2023 11:08-0500 Diastolic blood pressure 70 mm[Hg] Evie Grewal MD Work Phone: [facility] 10-09-2023 11:08-0500 Heart rate 76 /min Evie Grewal MD Work Phone: [facility] 10-09-2023 11:08-0500 Respiratory rate 16 /min Evie Grewal MD Work Phone: [facility] 10-09-2023 11:08-0500 SaO2% (BldA) [Mass fraction] 97 % Evie Grewal MD Work Phone: [facility] 10-09-2023 11:08-0500 Systolic blood pressure 138 mm[Hg] Evie Grewal MD Work Phone: [facility] 10-06-2023 22:09-0500 Body temperature 97.8 [degF] Dr. Evie Grewal Work Phone: [facility] 10-06-2023 22:09-0500 Diastolic blood pressure 76 mm[Hg] Dr. Evie Grewal Work Phone: [facility] 10-06-2023 22:09-0500 Heart rate 84 /min Dr. Evie Grewal Work Phone: [facility] 10-06-2023 22:09-0500 Respiratory rate 16 /min Dr. Evie Grewal Work Phone: [facility] 10-06-2023 22:09-0500 SaO2% (BldA) [Mass fraction] 94 % Dr. Evie Grewal Work Phone: [facility] 10-06-2023 22:09-0500 Systolic blood pressure 145 mm[Hg] Dr. Evie Grewal Work Phone: [facility] 10-06-2023 18:34-0500 Body height 175.[address] Evie Grewal Work Phone: 8(315)109-168588 [place] [address] 10-06-2023 18:34-0500 Body mass index (BMI) [Ratio] 31.3 kg/m2 Dr. Evie Grewal Work Phone: 5(310)899-760388 [place] [address] 10-06-2023 18:34-0500 Body weight 96.[address] Evie Grewal Work Phone: 8(305)146-559488 [place] [address] 07-03-2023 14:42-0500 Body mass index (BMI) [Ratio] 29.8 kg/m2 Dr. Evie Grewal Work Phone: 3(504)744-829088 [place] [address] 07-03-2023 14:42-0500 Body weight 91.[address] Evie Grewal Work Phone: 7(187)964-577788 [place] [address] 07-03-2023 14:42-0500 Diastolic blood pressure 78 mm[Hg] Dr. Evie Grewal Work Phone: 8(222)563-172788 [place] [address] 07-03-2023 14:42-0500 Heart rate 80 /min Dr. Evie Grewal Work Phone: 6(837)799-735088 [place] [address] 07-03-2023 14:42-0500 Respiratory rate 18 /min Dr. Evie Grewal Work Phone: 7(350)278-004888 [place] [address] 07-03-2023 14:42-0500 SaO2% (BldA) [Mass fraction] 99 % Dr. Evie Grewal Work Phone: 3(660)727-630388 [place] [address] 07-03-2023 14:42-0500 Systolic blood pressure 133 mm[Hg] Dr. Evie Grewal Work Phone: 4(407)002-785188 [place] [address] 06-11-2023 14:01-0400 Diastolic blood pressure 78 mm[Hg] Dr. Evie Grewal Work Phone: 6(537)071-883688 [place] [address] 06-11-2023 14:01-0400 Heart rate 96 /min Dr. Evie Grewal Work Phone: 8(147)996-813688 [place] [address] 06-11-2023 14:01-0400 Respiratory rate 16 /min Dr. Evie Grewal Work Phone: 4(553)745-251433 [place] [address] 06-11-2023 14:01-0400 SaO2% (BldA) [Mass fraction] 97 % Dr. Evie Grewal Work Phone: 4(547)287-988133 [place] [address] 06-11-2023 14:01-0400 Systolic blood pressure 131 mm[Hg] Dr. Evie Grewal Work Phone: 2(856)335-741888 [place] [address] 06-11-2023 10:10-0400 Body temperature 97.5 [degF] Dr. Evie Grewal Work Phone: 7(539)225-813888 [place] [address] 06-11-2023 06:37-0400 Body mass index (BMI) [Ratio] 29.2 kg/m2 Dr. Evie Grewal Work Phone: 8(137)244-345088 [place] [address] 06-11-2023 06:37-0400 Body weight [address] Evie Grewal Work Phone: 1(669)168-483088 [place] [address] 04-24-2023 19:26-0400 Diastolic blood pressure 73 mm[Hg] Dr. Evie Grewal Work Phone: 8(195)198-432088 [place] [address] 04-24-2023 19:26-0400 Heart rate 95 /min Dr. Evie Grewal Work Phone: 8(065)731-618288 [place] [address] 04-24-2023 19:26-0400 Respiratory rate 16 /min Dr. Evie Grewal Work Phone: 4(835)044-455588 [place] [address] 04-24-2023 19:26-0400 SaO2% (BldA) [Mass fraction] 95 % Dr. Evie Grewal Work Phone: 4(699)899-203088 [place] [address] 04-24-2023 19:26-0400 Systolic blood pressure 145 mm[Hg] Dr. Evie Grewal Work Phone: 8(925)732-542588 [place] [address] 04-24-2023 16:23-0400 Body temperature 98.1 [degF] Dr. Evie Grewal Work Phone: 1(802)079-523188 [place] [address] 04-24-2023 14:59-0400 Body height 175.[address] Evie Grewal Work Phone: [facility] 04-24-2023 14:59-0400 Body mass index (BMI) [Ratio] 31 kg/m2 Dr. Evie Grewal Work Phone: [facility] 04-24-2023 14:59-0400 Body weight 95.[address] Evie Grewal Work Phone: [facility] 01-16-2023 14:03-0400 Body weight 95.71 kg Anna Hernandez HARVEST SUPERVISOR.COFFEE SHOP ATTENDANT Work Phone: [facility] 01-16-2023 14:03-0400 Diastolic blood pressure 72 mm[Hg] Anna Hernandez HARVEST SUPERVISOR.COFFEE SHOP ATTENDANT Work Phone: [facility] 01-16-2023 14:03-0400 Heart rate 88 /min Anna Hernandez HARVEST SUPERVISOR.COFFEE SHOP ATTENDANT Work Phone: [facility] 01-16-2023 14:03-0400 Respiratory rate 16 /min Anna Hernandez HARVEST SUPERVISOR.COFFEE SHOP ATTENDANT Work Phone: [facility] 01-16-2023 14:03-0400 Systolic blood pressure 126 mm[Hg] Anna Hernandez HARVEST SUPERVISOR.COFFEE SHOP ATTENDANT Work Phone: [facility] 12-26-2022 14:07-0400 Body mass index (BMI) [Ratio] 31.3 kg/m2 Dr. Evie Grewal Work Phone: [facility] 12-26-2022 14:07-0400 Body weight 93.[address] Evie Grewal Work Phone: [facility] 12-26-2022 14:07-0400 Diastolic blood pressure 73 mm[Hg] Dr. Evie Grewal Work Phone: [facility] 12-26-2022 14:07-0400 Heart rate 83 /min Dr. Evie Grewal Work Phone: [facility] 12-26-2022 14:07-0400 Respiratory rate 16 /min Dr. Evie Grewal Work Phone: [facility] 12-26-2022 14:07-0400 Systolic blood pressure 119 mm[Hg] Dr. Evie Grewal Work Phone: [facility] 08-01-2022 14:36-0500 Body weight 102.51 kg Anna Hernandez HARVEST SUPERVISOR.COFFEE SHOP ATTENDANT Work Phone: [facility] 08-01-2022 14:36-0500 Diastolic blood pressure 74 mm[Hg] Anna Hernandez HARVEST SUPERVISOR.COFFEE SHOP ATTENDANT Work Phone: [facility] 08-01-2022 14:36-0500 Heart rate 84 /min Anna Hernandez HARVEST SUPERVISOR.COFFEE SHOP ATTENDANT Work Phone: [facility] 08-01-2022 14:36-0500 Respiratory rate 16 /min Anna Hernandez HARVEST SUPERVISOR.COFFEE SHOP ATTENDANT Work Phone: [facility] 08-01-2022 14:36-0500 Systolic blood pressure 130 mm[Hg] Anna Hernandez HARVEST SUPERVISOR.COFFEE SHOP ATTENDANT Work Phone: [facility] 05-02-2022 14:50-0400 Body weight 101.15 kg Anna Hernandez HARVEST SUPERVISOR.COFFEE SHOP ATTENDANT Work Phone: [facility] 05-02-2022 14:50-0400 Diastolic blood pressure 62 mm[Hg] Anna Hernandez HARVEST SUPERVISOR.COFFEE SHOP ATTENDANT Work Phone: [facility] 05-02-2022 14:50-0400 Heart rate 76 /min Anna Hernandez HARVEST SUPERVISOR.COFFEE SHOP ATTENDANT Work Phone: [facility] 05-02-2022 14:50-0400 Respiratory rate 16 /min Anna Hernandez HARVEST SUPERVISOR.COFFEE SHOP ATTENDANT Work Phone: [facility] 05-02-2022 14:50-0400 Systolic blood pressure 132 mm[Hg] Anna Hernandez HARVEST SUPERVISOR.COFFEE SHOP ATTENDANT Work Phone: [facility] 01-31-2022 15:23-0400 Diastolic blood pressure 68 mm[Hg] Evie Grewal MD Work Phone: [facility] 01-31-2022 15:23-0400 Systolic blood pressure 132 mm[Hg] Evie Grewal MD Work Phone: [facility] 01-31-2022 14:40-0400 Body weight 97.07 kg Evie Grewal MD Work Phone: [facility] 01-31-2022 14:40-0400 Heart rate 78 /min Evie Grewal MD Work Phone: [facility] 01-31-2022 14:40-0400 SaO2% (BldA) [Mass fraction] 96 % Evie Grewal MD Work Phone: [facility] 01-24-2022 14:02-0400 Body height 172.[address] Evie Grewal Work Phone: [facility] Work Phone: 01-24-2022 14:02-0400 Body mass index (BMI) [Ratio] 33 kg/m2 Dr. Evie Grewal Work Phone: [facility] Work Phone: 01-24-2022 14:02-0400 Body weight 98.[address] Evie Grewal Work Phone: [facility] Work Phone: 01-24-2022 14:02-0400 Diastolic blood pressure 78 mm[Hg] Dr. Evie Grewal Work Phone: [facility] Work Phone: 01-24-2022 14:02-0400 Heart rate 92 /min Dr. Evie Grewal Work Phone: [facility] Work Phone: 01-24-2022 14:02-0400 Respiratory rate 18 /min Dr. Evie Grewal Work Phone: [facility] Work Phone: 01-24-2022 14:02-0400 Systolic blood pressure 144 mm[Hg] Dr. Evie Grewal Work Phone: [facility] Work Phone: 12-11-2021 12:58-0400 Body temperature 97.7 [degF] Violeta Islas PT Work Phone: [facility] 12-11-2021 12:58-0400 Diastolic blood pressure 70 mm[Hg] Violeta Da Silva-Romero PT Work Phone: [facility] 12-11-2021 12:58-0400 Heart rate 82 /min Violeta Da Silva-Romero PT Work Phone: [facility] 12-11-2021 12:58-0400 Respiratory rate 18 /min Violeta Da Silva-Romero PT Work Phone: [facility] 12-11-2021 12:58-0400 SaO2% (BldA) [Mass fraction] 97 % Violeta Da Silva-Romero PT Work Phone: [facility] 12-11-2021 12:58-0400 Systolic blood pressure 160 mm[Hg] Violeta Fregosoderman-Romero PT Work Phone: [facility] 12-05-2021 13:40-0400 Diastolic blood pressure 68 mm[Hg] Arleen Federico AIR PRESS OPERATOR Work Phone: [facility] 12-05-2021 13:40-0400 Heart rate 80 /min Arleen Federico AIR PRESS OPERATOR Work Phone: [facility] 12-05-2021 13:40-0400 SaO2% (BldA) [Mass fraction] 97 % Arleen Federico AIR PRESS OPERATOR Work Phone: [facility] 12-05-2021 13:40-0400 Systolic blood pressure 118 mm[Hg] Arleen Federico AIR PRESS OPERATOR Work Phone: [facility] 12-05-2021 12:57-0400 Body temperature 98.4 [degF] Arleen Federico AIR PRESS OPERATOR Work Phone: [facility] 12-05-2021 12:57-0400 Respiratory rate 18 /min Arleen Federico AIR PRESS OPERATOR Work Phone: [facility] 12-02-2021 12:40-0400 Diastolic blood pressure 66 mm[Hg] Arleen Federico AIR PRESS OPERATOR Work Phone: [facility] 12-02-2021 12:40-0400 Heart rate 72 /min Arleen Federico AIR PRESS OPERATOR Work Phone: [facility] 12-02-2021 12:40-0400 SaO2% (BldA) [Mass fraction] 96 % Arleen Federico AIR PRESS OPERATOR Work Phone: [facility] 12-02-2021 12:40-0400 Systolic blood pressure 118 mm[Hg] Arleen Federico AIR PRESS OPERATOR Work Phone: [facility] 12-02-2021 12:02-0400 Body temperature 98.6 [degF] Arleen Federico AIR PRESS OPERATOR Work Phone: [facility] 12-02-2021 12:02-0400 Respiratory rate 18 /min Arleen Federico AIR PRESS OPERATOR Work Phone: [facility] 11-28-2021 13:32-0400 Diastolic blood pressure 76 mm[Hg] Arleen Federico AIR PRESS OPERATOR Work Phone: [facility] 11-28-2021 13:32-0400 Heart rate 76 /min Arleen Federico AIR PRESS OPERATOR Work Phone: [facility] 11-28-2021 13:32-0400 SaO2% (BldA) [Mass fraction] 97 % Arleen Federico AIR PRESS OPERATOR Work Phone: [facility] 11-28-2021 13:32-0400 Systolic blood pressure 120 mm[Hg] Arleen Federico AIR PRESS OPERATOR Work Phone: [facility] 11-28-2021 12:52-0400 Body temperature 98.4 [degF] Arleen Federico AIR PRESS OPERATOR Work Phone: [facility] 11-28-2021 12:52-0400 Respiratory rate 18 /min Arleen Federico AIR PRESS OPERATOR Work Phone: [facility] 11-27-2021 12:40-0400 Diastolic blood pressure 76 mm[Hg] Arleen Federico AIR PRESS OPERATOR Work Phone: [facility] 11-27-2021 12:40-0400 Heart rate 76 /min Arleen Federico AIR PRESS OPERATOR Work Phone: [facility] 11-27-2021 12:40-0400 SaO2% (BldA) [Mass fraction] 95 % Arleen Federico AIR PRESS OPERATOR Work Phone: [facility] 11-27-2021 12:40-0400 Systolic blood pressure 118 mm[Hg] Arleen Federico AIR PRESS OPERATOR Work Phone: [facility] 11-27-2021 12:02-0400 Body temperature 98.2 [degF] Arleen Federico AIR PRESS OPERATOR Work Phone: [facility] 11-27-2021 12:02-0400 Respiratory rate 18 /min Arleen Federico AIR PRESS OPERATOR Work Phone: [facility] 11-25-2021 15:04-0400 Diastolic blood pressure 78 mm[Hg] Arleen Federico AIR PRESS OPERATOR Work Phone: [facility] 11-25-2021 15:04-0400 Heart rate 82 /min Arleen Federico AIR PRESS OPERATOR Work Phone: [facility] 11-25-2021 15:04-0400 SaO2% (BldA) [Mass fraction] 97 % Arleen Federico AIR PRESS OPERATOR Work Phone: [facility] 11-25-2021 15:04-0400 Systolic blood pressure 128 mm[Hg] Arleen Federico AIR PRESS OPERATOR Work Phone: [facility] 11-25-2021 14:30-0400 Body temperature 98.71 [degF] Arleen Federico AIR PRESS OPERATOR Work Phone: [facility] 11-25-2021 14:30-0400 Respiratory rate 18 /min Arleen Federico AIR PRESS OPERATOR Work Phone: [facility] 11-22-2021 13:58-0400 Diastolic blood pressure 70 mm[Hg] Arleen Federico AIR PRESS OPERATOR Work Phone: [facility] 11-22-2021 13:58-0400 Heart rate 84 /min Arleen Federico AIR PRESS OPERATOR Work Phone: [facility] 11-22-2021 13:58-0400 SaO2% (BldA) [Mass fraction] 95 % Arleen Federico AIR PRESS OPERATOR Work Phone: [facility] 11-22-2021 13:58-0400 Systolic blood pressure 126 mm[Hg] Arleen Federico AIR PRESS OPERATOR Work Phone: [facility] 11-22-2021 13:17-0400 Body temperature 97.5 [degF] Arleen Federico AIR PRESS OPERATOR Work Phone: [facility] 11-22-2021 13:17-0400 Respiratory rate 18 /min Arleen Federico AIR PRESS OPERATOR Work Phone: [facility] 11-20-2021 14:01-0400 Diastolic blood pressure 62 mm[Hg] Debra White OT/L Work Phone: [facility] 11-20-2021 14:01-0400 Heart rate 85 /min Debra White OT/L Work Phone: [facility] 11-20-2021 14:01-0400 Respiratory rate 16 /min Debra White OT/L Work Phone: [facility] 11-20-2021 14:01-0400 SaO2% (BldA) [Mass fraction] 97 % Debra White OT/L Work Phone: [facility] 11-20-2021 14:01-0400 Systolic blood pressure 148 mm[Hg] Debra White OT/L Work Phone: [facility] 11-20-2021 13:21-0400 Body temperature 98.29 [degF] Debra White OT/L Work Phone: [facility] 11-20-2021 12:10-0400 Diastolic blood pressure 78 mm[Hg] Arleen Federico AIR PRESS OPERATOR Work Phone: [facility] 11-20-2021 12:10-0400 Heart rate 80 /min Arleen Federico AIR PRESS OPERATOR Work Phone: [facility] 11-20-2021 12:10-0400 SaO2% (BldA) [Mass fraction] 96 % Arleen Federico AIR PRESS OPERATOR Work Phone: [facility] 11-20-2021 12:10-0400 Systolic blood pressure 138 mm[Hg] Arleen Federico AIR PRESS OPERATOR Work Phone: [facility] 11-20-2021 11:37-0400 Body temperature 98.4 [degF] Arleen Federico AIR PRESS OPERATOR Work Phone: [facility] 11-20-2021 11:37-0400 Respiratory rate 18 /min Arleen Federico AIR PRESS OPERATOR Work Phone: [facility] 11-18-2021 12:00-0400 Body temperature 98.8 [degF] Violeta Haltalatman-Romero PT Work Phone: [facility] 11-18-2021 12:00-0400 Diastolic blood pressure 70 mm[Hg] Violeta Halderman-Romero PT Work Phone: [facility] 11-18-2021 12:00-0400 Heart rate 82 /min Violeta Halderman-Romero PT Work Phone: [facility] 11-18-2021 12:00-0400 Respiratory rate 18 /min Violeta Halderman-Romero PT Work Phone: [facility] 11-18-2021 12:00-0400 SaO2% (BldA) [Mass fraction] 98 % Violeta Halderman-Romero PT Work Phone: [facility] 11-18-2021 12:00-0400 Systolic blood pressure 144 mm[Hg] Violeta Halderman-Romero PT Work Phone: [facility] 11-15-2021 11:53-0400 Diastolic blood pressure 80 mm[Hg] Arleen Federico AIR PRESS OPERATOR Work Phone: [facility] 11-15-2021 11:53-0400 Heart rate 80 /min Arleen Federico AIR PRESS OPERATOR Work Phone: [facility] 11-15-2021 11:53-0400 SaO2% (BldA) [Mass fraction] 98 % Arleen Federico AIR PRESS OPERATOR Work Phone: [facility] 11-15-2021 11:53-0400 Systolic blood pressure 130 mm[Hg] Arleen Federico AIR PRESS OPERATOR Work Phone: [facility] 11-15-2021 11:16-0400 Body temperature 98.49 [degF] Arleen Federico AIR PRESS OPERATOR Work Phone: [facility] 11-15-2021 11:16-0400 Respiratory rate 18 /min Arleen Federico AIR PRESS OPERATOR Work Phone: [facility] 11-13-2021 13:00-0400 Diastolic blood pressure 66 mm[Hg] Violeta Islas PT Work Phone: [facility] 11-13-2021 13:00-0400 Systolic blood pressure 122 mm[Hg] Violeta Islas PT Work Phone: [facility] 11-13-2021 11:30-0400 Body temperature 97.59 [degF] Violeta Islas PT Work Phone: [facility] 11-13-2021 11:30-0400 Body weight 88.45 kg Violeta Islas PT Work Phone: [facility] 11-13-2021 11:30-0400 Heart rate 76 /min Violeta Islas PT Work Phone: [facility] 11-13-2021 11:30-0400 Respiratory rate 18 /min Violeta Islas PT Work Phone: [facility] 11-13-2021 11:30-0400 SaO2% (BldA) [Mass fraction] 95 % Violeta Roshan PT Work Phone: [facility] 11-01-2021 14:38-0400 Body weight 90.72 kg Evie Grewal MD Work Phone: [facility] 11-01-2021 14:38-0400 Diastolic blood pressure 72 mm[Hg] Evie Grewal MD Work Phone: [facility] 11-01-2021 14:38-0400 Heart rate 90 /min Evie Grewal MD Work Phone: [facility] 11-01-2021 14:38-0400 Systolic blood pressure 126 mm[Hg] Evie Grewal MD Work Phone: [facility] 10-18-2021 14:00-0500 Body mass index (BMI) [Ratio] 30.9 kg/m2 Dr. Evie Grewal Work Phone: [facility] Work Phone: 10-18-2021 14:00-0500 Body weight 92.[address] Evie Grewal Work Phone: [facility] Work Phone: 10-18-2021 14:00-0500 Diastolic blood pressure 81 mm[Hg] Dr. Evie Grewal Work Phone: [facility] Work Phone: 10-18-2021 14:00-0500 Heart rate 72 /min Dr. Evie Grewal Work Phone: [facility] Work Phone: 10-18-2021 14:00-0500 Respiratory rate 18 /min Dr. Evie Grewal Work Phone: [facility] Work Phone: 10-18-2021 14:00-0500 SaO2% (BldA) [Mass fraction] 98 % Dr. Evie Grewal Work Phone: [facility] Work Phone: 10-18-2021 14:00-0500 Systolic blood pressure 161 mm[Hg] Dr. Evei Grewal Work Phone: [facility] Work Phone: Encounters Encounter Date Encounter Type Care Provider Facility Start: 06-23-2025 End: 06-23-2025 ambulatory PAPA GAR Facility:[facility] Start: 06-03-2025 End: 06-03-2025 ambulatory EVIE GREWAL Facility:[facility] Start: 05-10-2025 End: 05-10-2025 ambulatory EVIE GREWAL Facility:[facility] Start: 03-17-2025 End: 03-17-2025 Patient encounter procedure Becca Steve DE -[facility] Work Phone: Start: 03-17-2025 End: 03-17-[address] Evie Grewal MD Work Phone: -[facility] Start: 03-03-2025 End: 03-03-2025 Patient encounter procedure Papa Alishafozia Work Phone: Podiatry Comment on above: Onychomycosis (Prima ry Dx); Pain in toe of left foot; Pain in toe of right foot; PAD (peripheral artery disease); Diabetic polyneuropathy associated with type 2 diabetes mellitus (HCC); Venous insufficiency Start: 03-03-2025 End: 03-03-2025 ambulatory PAPA GAR Facility:[facility] Start: 03-01-2025 End: 03-01-2025 ambulatory Lonnie Almazan MA [facility] Start: 03-01-2025 End: 03-01-2025 [facility] Start: 02-01-2025 End: 02-06-2025 Telephone encounter Evie Grewal MD Work Phone: [facility] [place] Comment on above: Patient Update (01/31 [facility] ER) Start: 01-31-2025 End: 01-31-2025 Emergency department patient visit Dr. Evie Grewal MD Work Phone: -Emergency Department Work Phone: Start: 01-27-2025 End: 01-27-2025 Office outpatient visit 25 minutes Evie Grewal MD Work Phone: [facility] [place] Comment on above: Controlled type 2 di abetes mellitus with diabetic neuropathy, with long-term current use of insulin (HCC) (Primary Dx); Primary hypertension; Microalbuminuria due to type 2 diabetes mellitus (HCC); Bilateral lower extremity edema; Vitamin D deficiency; Mixed hyperlipidemia Start: 01-27-2025 End: 01-27-2025 ambulatory EVIE GREWAL Facility:[facility] Start: 01-24-2025 End: 01-24-2025 Refill Evie Grewal MD Work Phone: [facility] [place] Comment on above: Refill Request Start: 01-19-2025 End: 03-21-2025 Follow-up encounter Anna Hernandez APRN.COFFEE SHOP ATTENDANT Work Phone: [facility] [place] Start: 01-14-2025 End: 01-14-2025 ambulatory EVIE GREWAL Facility:[facility] Start: 12-02-2024 End: 12-02-2024 Patient encounter procedure Papa Gar Work Phone: Podiatry Comment on above: Diabetic polyneuropa thy associated with type 2 diabetes mellitus (HCC) (Primary Dx); Onychomycosis; Pain in toe of left foot; Pain in toe of right foot; PAD (peripheral artery disease) Start: 12-02-2024 End: 12-02-2024 ambulatory PAPA GAR Facility:[facility] Start: 10-14-2024 End: 10-14-2024 ambulatory ANNA HERNANDEZ Facility:[facility] Start: 10-14-2024 End: 10-14-2024 Patient encounter procedure Anna Hernandez APRN.COFFEE SHOP ATTENDANT Work Phone: [facility] [place] Comment on above: Benign prostatic hyp erplasia without lower urinary tract symptoms (Primary Dx); Prostate cancer (HCC); Elevated PSA Start: 09-07-2024 End: 09-12-2024 Telephone encounter Evie Grewal MD Work Phone: [facility] [place] Comment on above: Diabetic shoes Start: 09-02-2024 End: 09-02-2024 ambulatory PAPA GAR Facility:[facility] Start: 09-02-2024 End: 09-02-2024 Patient encounter procedure Papa Gar Work Phone: Podiatry Comment on above: Diabetic polyneuropa thy associated with type 2 diabetes mellitus (HCC) (Primary Dx); Onychomycosis; Pain in toe of left foot; Pain in toe of right foot; Venous insufficiency Start: 08-29-2024 End: 09-07-2024 Telephone encounter Evie Grewal MD Work Phone: [facility] [place] Comment on above: prescription problem Start: 08-22-2024 End: 08-22-2024 Refill Anna Hernandez APRN.COFFEE SHOP ATTENDANT Work Phone: Family [facility] [place] Comment on above: Refill Request Start: 07-29-2024 End: 07-29-2024 Office outpatient visit 25 minutes Evie Grewal MD Work Phone: [facility] [place] Comment on above: Controlled type 2 di abetes mellitus with diabetic neuropathy, with long-term current use of insulin (HCC) (Primary Dx); Mixed hyperlipidemia; Statin intolerance; Vitamin D deficiency; Essential hypertension, benign; Class 1 obesity due to excess calories with body mass index (BMI) of 34.0 to 34.9 in adult, unspecified whether serious comorbidity present; Encounter for immunization Start: 07-29-2024 End: 07-29-2024 ambulatory EVIE GREWAL Facility:[facility] Start: 07-21-2024 End: 07-21-2024 ambulatory Thomas Mcclendon RN Computer Forensic Specialist Management Comment on above: CDM (Chronic Disease Management Routine Call/) Start: 07-12-2024 End: 07-12-2024 ambulatory RONALD COVINGTON Facility:[facility] Start: 06-20-2024 End: 06-20-2024 ambulatory Thomas Mcclendon RN [employer] Management Comment on above: CDM (Chronic Disease Management Routine Call/) Start: 05-26-2024 End: 05-26-2024 Refill Anna Hernandez APRN.COFFEE SHOP ATTENDANT Work Phone: [facility] [place] Comment on above: Refill Request Start: 05-24-2024 End: 05-24-2024 ambulatory Thomas Mcclendon RN Computer [employer]ist Management Comment on above: CDM (Chronic Disease Management Routine Call/) Start: 05-13-2024 End: 05-13-2024 ambulatory Evie Grewal Facility:[facility] Start: 05-06-2024 End: 05-06-2024 Patient encounter procedure Papa Cong Work Phone: Podiatry Comment on above: Diabetic polyneuropa thy associated with type 2 diabetes mellitus (HCC) (Primary Dx); PAD (peripheral artery disease) (HCC); Onychomycosis; Pain in toe of left foot; Pain in toe of right foot Start: 04-26-2024 End: 04-26-2024 ambulatory Thomas Mcclendon RN Computer Forensic Specialist Management Comment on above: CDM (Chronic Disease Management Routine Call/) Start: 04-08-2024 End: 04-08-2024 Office outpatient visit 25 minutes Anna Hernandez APRN.COFFEE SHOP ATTENDANT Work Phone: [facility] [place] Comment on above: Controlled type 2 di abetes mellitus with diabetic neuropathy, with long-term current use of insulin (HCC) (Primary Dx); Essential hypertension, benign; Prostate cancer (HCC); Screening for depression; Encounter for screening examination for other mental health and behavioral disorders Start: 04-01-2024 ambulatory Thomas Mcclendon RN Am bul[facility] Care Management Comment on above: Community Monitoring Outreach Start: 03-31-2024 Refill Evie marina MD Work Phone: [facility] [place] Comment on above: Refill Request Start: 03-04-2024 ambulatory Thomas Mcclendon RN Am bulatory Care Management Comment on above: Community Monitoring Outreach Start: 01-29-2024 End: 01-29-2024 Patient encounter procedure Papa Cong Work Phone: Podiatry Comment on above: Onychomycosis (Prima ry Dx); Pain in toe of left foot; Pain in toe of right foot; Diabetic polyneuropathy associated with type 2 diabetes mellitus (HCC); PAD (peripheral artery disease) (HCC) Start: 01-28-2024 ambulatory Thomas Mcclendon RN Am bulatory Care Management Comment on above: Community Monitoring Outreach Start: 12-09-2023 ambulatory Thomas Mcclendon RN Am [facility] Management Comment on above: Community Monitoring Outreach Start: 12-04-2023 End: 12-04-2023 Patient encounter procedure Ronald Covington APRN.CNP Work Phone: [facility] [place] Comment on above: Controlled type 2 di abetes mellitus with diabetic neuropathy, with long-term current use of insulin (HCC) (Primary Dx); 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 Evie Grewal Work Phone: [facility] Work Phone: Start: 11-05-2023 Telephone encounter Evie mosquera MD Work Phone: [facility] [place] Comment on above: Forms Start: 11-04-2023 ambulatory Thomas Mcclendon RN Am bulatory Care Management Comment on above: Community Monitoring Outreach Start: 11-02-2023 Refill Evie marina MD Work Phone: [facility] [place] Comment on above: Refill Request Start: 10-20-2023 End: 10-20-[address] Evie Grewal Work Phone: [facility] Work Phone: Start: 10-16-2023 End: 10-16-2023 Patient encounter procedure Papa Gar Work Phone: Podiatry Comment on above: Onychomycosis (Prima ry Dx); Pain in toe of left foot; Pain in toe of right foot; Diabetic polyneuropathy associated with type 2 diabetes mellitus (HCC); PAD (peripheral artery disease) (HCC) Start: 10-09-2023 End: 10-09-2023 Office outpatient visit 15 minutes Evie Grewal MD Work Phone: [facility] [place] Comment on above: Nausea and vomiting, unspecified vomiting type (Primary Dx); Epigastric pain; Essential hypertension, benign; Controlled type 2 diabetes mellitus with diabetic neuropathy, with long-term current use of insulin (HCC); Mixed hyperlipidemia; Primary hypertension; Vitamin D deficiency Start: 10-06-2023 End: 10-06-2023 Emergency department patient visit Dr. Evie Grewal Work Phone: [facility]-Emergency Department Work Phone: Start: 10-02-2023 End: 10-02-2023 Patient encounter procedure Evie Grewal MD Work Phone: [facility] [place] Comment on above: Medicare annual well ness visit, subsequent (Primary Dx); Controlled type 2 diabetes mellitus with diabetic neuropathy, with long-term current use of insulin (HCC); Mixed hyperlipidemia; Essential hypertension, benign Start: 09-29-2023 ambulatory Thomas Mcclendon RN Am bul[facility] Care Management Comment on above: Community Monitoring Outreach Start: 07-20-2023 ambulatory Thomas Mcclendon RN Am bulatory Care Management Comment on above: Community Monitoring Outreach Start: 07-17-2023 End: 07-17-2023 Patient encounter procedure Papa Gar Work Phone: Podiatry Comment on above: Onychomycosis (Prima ry Dx); Pain in toe of left foot; Pain in toe of right foot; Diabetic polyneuropathy associated with type 2 diabetes mellitus (HCC); PAD (peripheral artery disease) (HCC) Start: 07-03-2023 End: 07-03-[address] Evie Grewal Work Phone: [facility] Work Phone: Start: 06-24-2023 End: 06-24-[address] Evie Grewal Work Phone: [facility] Work Phone: Start: 06-16-2023 ambulatory Thomas Mcclendon RN Am bulatory Care Management Comment on above: Community Monitoring Outreach Start: 06-11-2023 Chart abstracting Evie collins MD Work Phone: [facility] [place] Start: 06-11-2023 Non-patient / Non-visit Dr. Jennifer Grewal Work Phone: [facility] Start: 06-11-2023 End: 06-11-2023 Admission to same day surgery center Dr[facility] Evie Grewal [facility] Start: 05-20-2023 ambulatory Thomas Mcclendon RN Am bulatory Care Management Comment on above: Community Monitoring Outreach Start: 04-24-2023 End: 04-24-2023 Emergency department patient visit Dr. Evie Grewal [facility] Work [facility]: Start: 03-23-2023 ambulatory Thomas Mcclendon RN Am [facility] Management Comment on above: Community Monitoring Outreach Start: 03-16-2023 ambulatory Thomas Mcclendon RN Am [facility] Care Management Comment on above: Community Monitoring Outreach Start: 02-09-2023 ambulatory Thomas Mcclendon RN Am [facility] Management Comment on above: Community Monitoring Outreach Start: 02-06-2023 End: 02-06-2023 Patient encounter procedure Papa Britofozia Work Phone: Podiatry Comment on above: Onychomycosis (Prima ry Dx); Pain in toe of left foot; Pain in toe of right foot; Diabetic polyneuropathy associated with type 2 diabetes mellitus (HCC); PAD (peripheral artery disease) ([facility]); Venous insufficiency; Xerosis cutis Start: 01-16-2023 End: 01-16-2023 Office outpatient visit 25 minutes Anna Hernandez APRN.CNS Work Phone: Internal Medicine [place] Comment on above: Controlled type 2 di abetes mellitus with diabetic neuropathy, with long-term current use of insulin (HCC) (Primary Dx); Stage 3a chronic kidney disease (HCC); Obesity (BMI 30-39.9); Syncope, unspecified syncope type Start: 01-13-2023 ambulatory Thomas Mcclendon RN Am bulatory Care Management Comment on above: Community Monitoring Outreach Start: 01-09-2023 Non-patient / Non-visit Dr. Jennifer Grewal Work Phone: [facility] Start: 01-09-2023 End: 01-09-[address] Evie [facility]rewal [facility] Work Phone: Start: 01-06-2023 ambulatory Thomas Mcclendon RN Am bulatory Care Management Comment on above: Community Monitoring Outresach Start: 12-26-2022 End: 12-26-[address] Evie Grewal Work Phone: [facility] Work Phone: Start: 12-09-2022 ambulatory Thomas Mcclendon RN Am bulatory Care Management Comment on above: Community Monitoring Outreach Start: 11-13-2022 ambulatory Thomas Mcclendon RN Am bul[facility] Care Management Comment on above: Community Monitoring Outreach Start: 11-07-2022 ambulatory Thomas Mcclendon RN Am [facility] Care Management Comment on above: Community Monitoring Outreach Start: 10-28-2022 Telephone encounter Papa Ashton connor Work Phone: Podiatry Comment on above: Patient Update Start: 10-22-2022 Refill Anna Hernandez APRN.COFFEE SHOP ATTENDANT Work Phone: [facility] [place] Comment on above: Refill Request Start: 10-15-2022 ambulatory Thomas Mcclendon RN Am [facility] Management Comment on above: Community Monitoring Outreach Start: 09-16-2022 remedios Mcclendon RN Am [facility] Care Management Comment on above: Community Monitoring Outreach Start: 08-22-2022 ambulatory Thomas Mcclendon RN Am [facility] Management Comment on above: Community Monitoring Outreach Start: 08-19-2022 ambulatory Thomas Mcclendon RN Am [facility] Management Comment on above: Community Monitoring Outreach Start: 08-01-2022 End: 08-01-2022 Office outpatient visit 25 minutes Anna Hernandez APRN.COFFEE SHOP ATTENDANT Work Phone: [facility] [place] Comment on above: Controlled type 2 di abetes mellitus without complication, with long-term current use of insulin (HCC) (Primary Dx); Screening for diabetic retinopathy; Encounter for immunization; Screening for colon cancer; Mixed hyperlipidemia Start: 07-21-2022 Refill Evie marina MD Work Phone: [facility] [place] Comment on above: Refill Request Start: 07-14-2022 ambulatory Thomas Mcclendon RN Am [facility] Care Management Comment on above: Community Monitoring Outreach Start: 06-11-2022 ambulatory Hakan Hill RN Am bulatory Care Management Comment on above: Community Monitoring Outreach Start: 06-03-2022 Refill Evie marina MD Work Phone: [facility] [place] Comment on above: Refill Request Start: 05-26-2022 ambulatory Hakan Hill RN Am [facility] Management Comment on above: Community Monitoring Outreach Start: 05-23-2022 End: 05-23-2022 Patient encounter procedure Papa Gar Work Phone: Podiatry Comment on above: Onychomycosis (Prima ry Dx); Pain in toe of left foot; Pain in toe of right foot; Diabetic polyneuropathy associated with type 2 diabetes mellitus (HCC); PAD (peripheral artery disease) (HCC) Start: 05-02-2022 End: 05-02-2022 Patient encounter procedure Anna Hernandez APRN.COFFEE SHOP ATTENDANT Work Phone: Internal Medicine [place] Comment on above: Screening for diabet ic retinopathy (Primary Dx); Encounter for immunization; Mixed hyperlipidemia; Controlled type 2 diabetes mellitus without complication, with long-term current use of insulin (HCC); Coronary artery disease involving [place] heart without angina pectoris, unspecified vessel or lesion type; Primary hypertension; Chronic congestive heart failure, unspecified heart failure type (HCC) Start: 04-19-2022 Telephone encounter Evie mosquera MD Work Phone: [facility] [place] Comment on above: Medication Problem Start: 04-14-2022 Refill Evie marina MD Work Phone: [facility] [place] Comment on above: Refill Request Start: 04-06-2022 Orders Only Evie marina MD Work Phone: [facility] [place] Comment on above: Controlled type 2 di abetes mellitus without complication, with long-term current use of insulin (HCC) (Primary Dx); Essential hypertension, benign Start: 03-24-2022 ambulatory Hakan Hill RN Am bulatory [facility] Comment on above: Community Monitoring Outreach Start: 03-07-2022 ambulatory Hakan Hill RN Am [facility] Comment on above: Community Monitoring Outreach (CHF Telephonic CDM Outreach) Start: 02-28-2022 Non-patient / Non-visit Dr. Jennifer Grewal Work Phone: [facility] Start: 02-28-2022 End: 02-28-[address] Evie Grewal [facility] Phone[facility] Start: 02-14-2022 ambulatory Hakan Hill RN Am bulatory [facility] Comment on above: Community Monitoring Outreach (CHF Telephonic CDM Outreach) Start: 02-14-2022 End: 02-14-2022 Patient encounter procedure Papa Gar Work Phone: Podiatry Comment on above: Onychomycosis (Prima ry Dx); Pain in toe of left foot; Pain in toe of right foot; Diabetic polyneuropathy associated with type 2 diabetes mellitus (HCC); PAD (peripheral artery disease) (HCC); Xerosis cutis; Venous insufficiency Start: 02-13-2022 Non-patient / Non-visit Dr. Jennifer Grewal Work Phone: [facility] Start: 02-13-2022 End: 02-13-[address] Evie Grewal Work Phone[facility] Start: 02-11-2022 Telephone encounter Evie mosquera MD Work Phone: [facility] [place] Comment on above: Medication Problem Start: 01-31-2022 End: 01-31-2022 Office outpatient visit 25 minutes Evie Grewal MD Work Phone: [facility] [place] Comment on above: Controlled type 2 di abetes mellitus without complication, with long-term current use of insulin (HCC) (Primary Dx); Essential hypertension, benign; Bilateral lower extremity edema; Vitamin D deficiency; Mixed hyperlipidemia; Encounter for long-term current use of medication Start: 01-29-2022 ambulatory Hakan Hill RN Am bulatory Care Management Comment on above: Community Monitoring Outreach (CHF Telephonic CDM OutreachL) Start: 01-24-2022 End: 01-24-[address] Evie Grewal Work Phone: [facility] Start: 01-14-2022 ambulatory Hakan Hill RN Am bulatory Care Management Comment on above: Community Monitoring Outreach (CHF Telephonic CDM Outreach) Start: 01-07-2022 End: 01-07-2022 Patient encounter procedure Papa Gar Work Phone: Podiatry Comment on above: Onychomycosis (Prima ry Dx); Pain in toe of left foot; Pain in toe of right foot; Diabetic polyneuropathy associated with type 2 diabetes mellitus ([facility]); PAD (peripheral artery disease) ([facility]); Venous insufficiency Start: 12-31-2021 End: 12-31-2021 Subsequent hospital visit by physician Us Noris Gomez 2 Work Phone: Radiology Comment on above: Leg swelling [M79.89 ] Start: 12-31-2021 End: 12-31-2021 Patient encounter procedure Glendy Ochoa MD Work Phone: Orthopaedics Comment on above: Leg swelling (Primar y Dx) Start: 12-30-2021 ambulatory Hakan Hill RN Am bul[facility] Care Management Comment on above: Community Monitoring Outreach (CHF Telephonic CDM Outreach) Start: 12-20-2021 ambulatory Hakan Hill RN Am bulatory Care Management Comment on above: Community Monitoring Outreach ([facility] Telephonic CDM Outreach) Start: 12-11-2021 Telephone encounter Violeta Islas PT Work Phone: [facility] Comment on above: Home Care (agency d/ c ) Start: 12-11-2021 End: 12-11-2021 Home visit Violeta Islas PT Work Phone: [facility] Comment on above: PT AGENCY DC W VISIT Start: 12-09-2021 Telephone encounter Glendy weaver MD Work Phone: [address] Comment on above: [employer] - H ospital Follow Up Start: 12-05-2021 ambulatory Hakan Hill RN Am bul[facility] Care Management Comment on above: Community Monitoring Outreach ([facility] Telephonic CDM Outreach) Start: 12-05-2021 End: 12-05-2021 Home visit Arleen Federico AIR PRESS OPERATOR Work Phone: [facility] Comment on above: AIR PRESS OPERATOR ROUTINE Start: 12-02-2021 End: 12-02-2021 Home visit Arleen Federico AIR PRESS OPERATOR Work Phone: [facility] Comment on above: AIR PRESS OPERATOR ROUTINE Start: 11-28-2021 End: 11-28-2021 Home visit Arleen Federico AIR PRESS OPERATOR Work Phone: [facility] Comment on above: AIR PRESS OPERATOR ROUTINE Start: 11-27-2021 End: 11-27-2021 Home visit Arleen Federico AIR PRESS OPERATOR Work Phone: [facility] Comment on above: AIR PRESS OPERATOR ROUTINE Start: 11-26-2021 End: 11-26-2021 Patient encounter procedure James Quiroz APRN.DROP FORGER HELPER Work Phone: Orthopaedics Comment on above: Status post left hip replacement (Primary Dx) Start: 11-26-2021 End: 11-26-2021 Subsequent hospital visit by physician [facility] Work Phone: Radiology Comment on above: Pain in left hip [M2 5.552] Start: 11-25-2021 End: 11-25-2021 Home visit Arleen Caballero AIR PRESS OPERATOR Work Phone: [facility] Comment on above: AIR PRESS OPERATOR ROUTINE Start: 11-25-2021 Telephone encounter Debra Kate itjacky OT/L Work Phone: [facility] Comment on above: Home Care (OT eval u pdate) Start: 11-22-2021 End: 11-22-2021 Home visit Arleen Caballero AIR PRESS OPERATOR Work Phone: [facility] Comment on above: AIR PRESS OPERATOR ROUTINE Start: 11-20-2021 End: 11-20-2021 Home visit Arleen Caballero AIR PRESS OPERATOR Work Phone: [facility] Comment on above: AIR PRESS OPERATOR ROUTINE OT ROUTINE WITH BATH OT DISC DC WO VISIT Start: 11-19-2021 ambulatory Hakan Hill RN Am bulatory [facility] Management Comment on above: Community Monitoring Outreach ([facility] Telephonic CDM Outreach) Start: 11-18-2021 Telephone encounter Violeta Islas PT Work Phone: [facility] [facility] Comment on above: Home Care (requestin g OT orders ) Start: 11-18-2021 End: 11-18-2021 Home visit Violeta Islas PT Work Phone: [facility] Comment on above: PT ROUTINE Start: 11-15-2021 End: 11-15-2021 Home visit Arleen Caballero AIR PRESS OPERATOR Work Phone: [facility] Comment on above: AIR PRESS OPERATOR ROUTINE Start: 11-14-2021 Orders Only James Quiroz HARVEST SUPERVISOR.DROP FORGER HELPER Work Phone: Orthopaedics Comment on above: Pain in left hip (Pr imary Dx) Start: 11-13-2021 Telephone encounter Violeta Islas PT Work Phone: [facility] Comment on above: Home Care (admit to agency ) Start: 11-13-2021 End: 11-13-2021 Home visit Violeta Islas PT Work Phone: [facility] Comment on above: PT SOC Start: 11-01-2021 End: 11-01-2021 Office outpatient visit 25 minutes Evie Grewal MD Work Phone: Internal [facility] [place] Comment on above: Controlled type 2 di abetes mellitus without complication, with long-term current use of insulin (HCC) (Primary Dx); Essential hypertension, benign; Mixed hyperlipidemia; Vitamin D deficiency; S/P coronary artery stent placement; CVA, old, cognitive deficits Start: 10-18-2021 End: 10-18-[address] Evie Grewal Work Phone: [facility] Start: 11-08-2020 ambulatory SELF SELF Facility:[facility] Start: 05-28-2018 Ambulatory [facility] Start: 05-29-2017 End: 05-29-2017 Ambulatory [facility] Procedures Date Procedure Procedure Detail Performing Clinician Start: 01-31-2025 Urnls dip stick/tabl et reagent auto microscopy Dr. Evie Grewal MD Work Phone: Start: 01-31-2025 Plain X-ray abdomen Dr. Evie Grewal MD Work Phone: Start: 01-31-[address] Evie Grewal MD Work Phone: Start: 04-08-2024 Adult depression screening assessment Anna Hernandez APRN.COFFEE SHOP ATTENDANT Work Phone: Start: 10-06-2023 Plain chest X-ray Dr. Cookie Grewal Work Phone: Start: 06-11-2023 Hemoglobin A1c/Hemoglobin.total in Blood [facility] Provider Start: 04-24-2023 Computed tomography of abdomen and pelvis with intravenous contrast Dr. Evie Grewal Work Phone: Start: 05-02-2022 INFLUENZA SEASONAL QUADRIVALENT HIGH DOSE AGE 65+ Anna Hernandez APRN.COFFEE SHOP ATTENDANT Work Phone: Start: 12-31-2021 Dup-scan xtr veins complete bilateral study Glendy Ochoa MD Work Phone: Start: 11-26-2021 Radex hip unilateral with pelvis 2-3 views James Quiroz APRN.DROP FORGER HELPER Work Phone: Start: 07-30-2021 Adult depression screening assessment Violeta Islas PT Work Phone: Start: 07-23-2012 Colonoscopy Violeta Islas PT Work Phone: History of placement of stent for coronary artery disease S/P coronary artery stent placement Evie Grewal MD Work Phone: Plan of Treatment Date Care Activity Detail Author Start: 01-27-2026 Annual PCP Team Admissions Officer tushar Disease Visit Annual PCP Team Chronic Disease Visit [facility] Start: 01-14-2026 Hepatitis B screening Urine Al bumin:Creatinine Ratio [facility] Start: 01-14-2026 Hepatitis B surface antibody level LDL Cholesterol [facility] Start: 10-20-2025 End: 10-20-2025 Patient encounter procedure 10/20/2025 1:00 PM EST Office Visit Internal Medicine [place] [address] [place] [address] Anna Hernandez APRN.COFFEE SHOP ATTENDANT [address] [place] [address] annual/medicare wellness [facility] [place] Comment on above: annual/medicare well ness Start: 10-16-2025 End: 10-16-2025 Patient encounter procedure 10/16/2025 2:00 PM EST Office Visit [facility] [place] [address] [place] [address] Ronald Covington APRN.DROP FORGER HELPER [address] [place] [address] annual/medicare wellness [facility] [place] Comment on above: annual/medicare well ness Start: 10-14-2025 Medicare Annual Well ness Visit Medicare Annual Wellness Visit [facility] Start: 09-02-2025 Diabetic foot examination Diabetic Foot Exam [facility] Start: 08-26-2025 COLOGUARD (FIT-DNA) COLOGUARD (FIT-D NA) [facility] Start: 08-26-2025 COLORECTAL CANCER SCREENING COLORECTAL CANCER SCREENING [facility] Start: 08-26-2025 Screening for malign ant neoplasm of colon [facility] Start: 08-04-2025 End: 08-04-2025 Patient encounter procedure 08/04/2025 3:40 PM EST Office Visit [facility] [place] [address] [place], [place] [address] Evie Grewal MD [address] [place], [place] [id number] 4 month follow up -dm [facility] [place] Comment on above: 4 month follow up -d m Start: 07-29-2025 Annual PCP Team Admissions Officer tushar Disease Visit Annual PCP Team Chronic Disease Visit [facility] Start: 07-29-2025 BP Controlled (<130/80) BP Controlle d (<130/80) [facility] Start: 07-16-2025 Hemoglobin A1c measurement HbA1C [facility] Start: 07-12-2025 Hepatitis B surface antibody level LDL Cholesterol [facility] Start: 06-29-2025 Glaucoma screening Dilated Retinal E xam [facility] Start: 06-09-2025 End: 06-09-2025 Patient encounter procedure 06/09/2025 3:40 PM EDT Office Visit Podiatry [address] [place], [place] [id number] [facility] [address] [place] [address] 3 month follow up nail care Podiatry Comment on above: 3 month follow up na ky care Start: 06-03-2025 End: 06-03-2025 Patient encounter procedure 06/03/2025 11:40 AM EDT Office Visit [facility] [place] [address] [place] [phone] Evie Grewal MD [address] [place], [place] [id number] 4 month follow up [facility] [place] Comment on above: 4 month follow up Start: 04-29-2025 End: 07-29-2025 Comprehensive metabolic 2000 panel - Serum or Plasma COMPREHENSIVE METABOLIC PANEL Lab Routine Controlled type 2 diabetes mellitus with diabetic neuropathy, with long-term current use of insulin (HCC) Expected: 04/29/2025 (Approximate), Expires: 07/29/2025 [facility] Comment on above: Expected: 04/29/2025 (Approximate), Expires: 07/29/2025 Start: 04-29-2025 End: 07-29-2025 Hemoglobin A1c in Blood HEMOGLOBIN A1C Lab Routine Controlled type 2 diabetes mellitus with diabetic neuropathy, with long-term current use of insulin (HCC) Expected: 04/29/2025 (Approximate), Expires: 07/29/2025 [facility] Work Phone: Comment on above: Expected: 04/29/2025 (Approximate), Expires: 07/29/2025 Start: 04-29-2025 End: 07-29-2025 Microalbumin/Creatinine [Mass Ratio] in Urine ALBUMIN/CREATININE RATIO, URINE Lab Routine Controlled type 2 diabetes mellitus with diabetic neuropathy, with long-term current use of insulin (HCC) Microalbuminuria due to type 2 diabetes mellitus (HCC) Expected: 04/29/2025 (Approximate), Expires: 07/29/2025 [facility] Comment on above: Expected: 04/29/2025 (Approximate), Expires: 07/29/2025 Start: 04-17-2025 Influenza vaccination [facility] Start: 04-08-2025 Anxiety Screening Anxiety Screening [facility] Start: 04-08-2025 [facility] Start: 03-03-2025 End: 03-03-2025 Patient encounter procedure 03/03/2025 3:00 PM EDT Office Visit Podiatry [address] [place] [phone] [facility] [address] [place] [phone] 3 month follow up nail care Podiatry Comment on above: 3 month follow up na il care Start: 02-13-2025 Influenza vaccination Influenza Vacc ine (#1) [facility] Comment on above: Postponed from 04/17 (Declined at this time) Start: 01-31-2025 [facility] Start: 01-27-2025 End: 01-27-2025 Patient encounter procedure 01/27/2025 3:20 PM EDT Office Visit [facility] [place] [address] [place], [place] [address] Evie Grewal MD [address] [place] [address] 4 month follow up- DM [facility] [place] Comment on above: 4 month follow up- D M Start: 01-15-2025 End: 04-16-2025 25-hydroxyvitamin D3 [Mass/volume] in Serum or Plasma VITAMIN D 25 HYDROXY Lab Routine Vitamin D deficiency Expected: 01/15/2025 (Approximate), Expires: 04/16/2025 [facility] Comment on above: Expected: 01/15/2025 (Approximate), Expires: 04/16/2025 Start: 01-15-2025 End: 04-16-2025 CBC panel - Blood by Automated count COMPLETE BLOOD COUNT Lab Routine Controlled type 2 diabetes mellitus with diabetic neuropathy, with long-term current use of insulin (HCC) Expected: 01/15/2025 (Approximate), Expires: 04/16/2025 [facility] Comment on above: Expected: 01/15/2025 (Approximate), Expires: 04/16/2025 Start: 01-15-2025 End: 04-16-2025 Comprehensive metabolic 2000 panel - Serum or Plasma COMPREHENSIVE METABOLIC PANEL Lab Routine Controlled type 2 diabetes mellitus with diabetic neuropathy, with long-term current use of insulin (HCC) Expected: 01/15/2025 (Approximate), Expires: 04/16/2025 [facility] Comment on above: Expected: 01/15/2025 (Approximate), Expires: 04/16/2025 Start: 01-15-2025 End: 04-16-2025 Hemoglobin A1c in Blood HEMOGLOBIN A1C Lab Routine Controlled type 2 diabetes mellitus with diabetic neuropathy, with long-term current use of insulin (HCC) Expected: 01/15/2025 (Approximate), Expires: 04/16/2025 [facility] Work Phone: Comment on above: Expected: 01/15/2025 (Approximate), Expires: 04/16/2025 Start: 01-15-2025 End: 04-16-2025 Lipid 1996 panel - Serum or Plasma LIPID PANEL BASIC Lab Routine Controlled type 2 diabetes mellitus with diabetic neuropathy, with long-term current use of insulin (HCC) Mixed hyperlipidemia Expected: 01/15/2025 (Approximate), Expires: 04/16/2025 [facility] Comment on above: Expected: 01/15/2025 (Approximate), Expires: 04/16/2025 Start: 01-15-2025 End: 04-16-2025 Microalbumin/Creatinine [Mass Ratio] in Urine ALBUMIN/CREATININE RATIO, URINE Lab Routine Controlled type 2 diabetes mellitus with diabetic neuropathy, with long-term current use of insulin (HCC) Expected: 01/15/2025 (Approximate), Expires: 04/16/2025 [facility] Comment on above: Expected: 01/15/2025 (Approximate), Expires: 04/16/2025 Start: 01-15-2025 End: 10-13-2025 PSA/PROSTATE SPECIFIC ANTIGEN SCREENING PSA/PROSTATE SPECIFIC ANTIGEN SCREENING Lab Routine Benign prostatic hyperplasia without lower urinary tract symptoms Prostate cancer (HCC) Elevated PSA Expected: 01/15/2025, Expires: 10/13/2025 [facility] Work Phone: Comment on above: Expected: 01/15/2025 , Expires: 10/13/2025 Start: 01-09-2025 Hemoglobin A1c measurement HbA1C [facility] Start: 2024 RSV Vaccine (1 - 1-d ose 75+ series) RSV Vaccine (1 - 1-dose 75+ series) [facility] Start: 12-03-2024 Annual PCP Team Admissions Officer tushar Disease Visit Annual PCP Team Chronic Disease Visit [facility] Start: 12-03-2024 BP Controlled (<130/80) BP Controlle d (<130/80) [facility] Start: 12-03-2024 zzBP Controlled (<130/80) (Retired) zzBP Controlled (<130/80) (Retired) [facility] Start: 12-02-2024 End: 12-02-2024 Patient encounter procedure 12/02/2024 2:20 PM EDT Office Visit Podiatry [address] [place] [address] [facility] [address] [address] 3 mopnth follow up nail care Podiatry Comment on above: 3 mopnth follow up n ail care Start: 11-12-2024 Hepatitis B screening Urine Al bumin:Creatinine Ratio [facility] Start: 11-12-2024 Hepatitis B surface antibody level LDL Cholesterol [facility] Start: 10-14-2024 End: 10-14-2024 Patient encounter procedure 10/14/2024 2:00 PM EST Office Visit [facility] [place] [address] [place] [address] Anna Hernandez APRN.COFFEE SHOP ATTENDANT [address] [place] [address] medicare wellness [facility] [place] Comment on above: medicare wellness Start: 10-09-2024 Annual PCP Team Admissions Officer tushar Disease Visit Annual PCP Team Chronic Disease Visit [facility] Start: 09-30-2024 End: 09-30-2024 Patient encounter procedure 09/30/2024 2:20 PM EST Office Visit [facility] [place] [address] [place] [address] Anna Hernandez, HARVEST SUPERVISOR.COFFEE SHOP ATTENDANT [address] [place] [address] medicare wellness [facility] [place] Comment on above: medicare wellness Start: 09-02-2024 End: 09-02-2024 Patient encounter procedure 09/02/2024 3:00 PM EST Office Visit Podiatry [address] [place] [address] [facility] [address] [address] 3 mo follow up nailcare Podiatry Comment on above: 3 mo follow up nailc are Start: 08-17-2024 Advance Directive Discussion Advance Directive Discussion [facility] Start: 08-05-2024 End: 08-05-2024 Patient encounter procedure Podiatry Comment on above: 3 mo follow up nailc are Start: 07-29-2024 End: 07-29-2024 Patient encounter procedure 07/29/2024 4:00 PM EST Office Visit [facility] [place] [address] [place] [address] Evie Grewal MD [address] [facility] [place] [address] 4 month follow up [facility] [place] Comment on above: 4 month follow up Start: 07-18-2024 End: 10-17-2024 25-hydroxyvitamin D3 [Mass/volume] in Serum or Plasma VITAMIN D 25 HYDROXY Lab Routine Vitamin D deficiency Expected: 07/18/2024, Expires: 10/17/2024 [facility] Work Phone: Comment on above: Expected: 07/18/2024 , Expires: 10/17/2024 Start: 07-18-2024 Annual PCP Team Admissions Officer tushar Disease Visit Annual PCP Team Chronic Disease Visit [facility] Start: 07-18-2024 BP Controlled (<130/80) BP Controlle d (<130/80) [facility] Start: 07-18-2024 End: 10-17-2024 CBC W Auto Differential panel - Blood COMPLETE BLOOD COUNT AND DIFFERENTIAL Lab Routine Encounter for therapeutic drug monitoring Expected: 07/18/2024, Expires: 10/17/2024 [facility] Work Phone: Comment on above: Expected: 07/18/2024 , Expires: 10/17/2024 Start: 07-18-2024 End: 10-17-2024 Comprehensive metabolic 2000 panel - Serum or Plasma COMPREHENSIVE METABOLIC PANEL Lab Routine Encounter for therapeutic drug monitoring Expected: 07/18/2024, Expires: 10/17/2024 [facility] Work Phone: Comment on above: Expected: 07/18/2024 , Expires: 10/17/2024 Start: 07-18-2024 Covid-19 Vaccine (3 - Pfizer risk series) Covid-19 Vaccine (3 - Pfizer risk series) [facility] Comment on above: Postponed from 04/05 (Declined at this time) Start: 07-18-2024 End: 10-17-2024 Hemoglobin A1c in Blood HEMOGLOBIN A1C Lab Routine Controlled type 2 diabetes mellitus with diabetic neuropathy, with long-term current use of insulin (HCC) Expected: 07/18/2024, Expires: 10/17/2024 [facility] Work Phone: Comment on above: Expected: 07/18/2024 , Expires: 10/17/2024 Start: 07-18-2024 End: 10-17-2024 Lipid 1996 panel - Serum or Plasma LIPID PANEL BASIC Lab Routine Screening for lipid disorders Expected: 07/18/2024, Expires: 10/17/2024 [facility] Work Phone: Comment on above: Expected: 07/18/2024 , Expires: 10/17/2024 Start: 07-18-2024 RSV Vaccine (1 - 1-d ose 60+ series) RSV Vaccine (1 - 1-dose 60+ series) [facility] Comment on above: Postponed from 12/25 (Declined at this time) Start: 07-18-2024 RSV Vaccine (1 - Ris k 60-74 years 1-dose series) RSV Vaccine (1 - Risk 60-74 years 1-dose series) [facility] Comment on above: Postponed from 12/25 (Declined at this time) Start: 07-18-2024 Shingrix Vaccine (1 of 2) Shingrix Vaccine (1 of 2) [facility] Comment on above: Postponed from 12/25 (Declined at this time) Start: 07-18-2024 Urine microalbumin profile DTaP,Tdap,Td Vaccine (2 - Td or Tdap) [facility] Comment on above: Postponed from 05/11 (Declined at this time) Start: 07-17-2024 3 comp foot exam completed Diabetic Foot Exam [facility] Start: 07-17-2024 Diabetic foot examination Diabetic Foot Exam [facility] Start: 07-01-2024 Hepatitis B screening Urine Al bumin:Creatinine Ratio [facility] Start: 07-01-2024 Hepatitis B surface antibody level LDL Cholesterol [facility] Start: 07-01-2024 Serum Creatinine Serum Creatinine Cl [facility] Start: 06-29-2024 Glaucoma screening Dilated Retinal E xam [facility] Start: 06-29-2024 Hepatitis C antibody , confirmatory test Dilated Retinal Exam [facility] Start: 05-15-2024 Hemoglobin A1c measurement HbA1C [facility] Start: 05-06-2024 End: 05-06-2024 Patient encounter procedure 05/06/2024 3:40 PM EDT Office Visit Podiatry [address] [place] [address] [facility] [address] [place] [address] 3 mo follow up nailcare Podiatry Comment on above: 3 mo follow up nailc are Start: 05-01-2024 Annual PCP Team Admissions Officer tushar Disease Visit Annual PCP Team Chronic Disease Visit [facility] Start: 05-01-2024 BP Controlled (<130/80) BP Controlle d (<130/80) [facility] Start: 04-17-2024 Influenza vaccination Influenza Vacc ine (#1) [facility] Start: 04-08-2024 End: 04-08-2024 Patient encounter procedure 04/08/2024 1:00 PM EDT Office Visit Internal Medicine [place] [address] [place] [address] Anna Hernandez APRN.COFFEE SHOP ATTENDANT [address] [place] [address] 4 month follow up [facility] [place] Comment on above: 4 month follow up Start: 01-29-2024 End: 01-29-2024 Patient encounter procedure 01/29/2024 2:40 PM EDT Office Visit Podiatry [address] [place] [address] [facility] [address] [place] [address] 3 mo follow up nailcare Podiatry Comment on above: 3 mo follow up nailc are Start: 01-17-2024 BP CONTROLLED (<130/80) BP CONTROLLE D (<130/80) [facility] Start: 12-30-2023 Hemoglobin A1c measurement HbA1C [facility] Start: 12-30-2023 Hemoglobin A1c/Hemoglobin.total in Blood HbA1C [facility] Start: 12-20-2023 HEMOGLOBIN/HEMATOCRIT HEMOGLOBIN/HEM ATOCRIT [facility] Start: 12-20-2023 Hepatitis B surface antibody level LDL CHOLESTEROL [facility] Start: 12-20-2023 SERUM CREATININE SERUM CREATININE [facility] Start: 12-11-2023 Hemoglobin A1c/Hemoglobin.total in Blood HbA1C [facility] Start: 12-04-2023 End: 03-04-2024 PSA/PROSTATE SPECIFIC ANTIGEN SCREENING PSA/PROSTATE SPECIFIC ANTIGEN SCREENING Lab Routine Prostate cancer screening Expected: 12/04/2023, Expires: 03/04/2024 [facility] Work Phone: Comment on above: Expected: 12/04/2023 , Expires: 03/04/2024 Start: 11-16-2023 End: 02-15-2024 25-hydroxyvitamin D3 [Mass/volume] in Serum or Plasma VITAMIN D 25 HYDROXY Lab Routine Vitamin D deficiency Expected: 11/16/2023, Expires: 02/15/2024 [facility] Work Phone: Comment on above: Expected: 11/16/2023 , Expires: 02/15/2024 Start: 11-16-2023 End: 02-15-2024 ALBUMIN/CREAT RATIO RND UR ALBUMIN/CREAT RATIO RND UR Lab Routine Controlled type 2 diabetes mellitus with diabetic neuropathy, with long-term current use of insulin (HCC) Expected: 11/16/2023, Expires: 02/15/2024 [facility] Work Phone: Comment on above: Expected: 11/16/2023 , Expires: 02/15/2024 Start: 11-16-2023 End: 02-15-2024 CBC panel - Blood by Automated count CBC Lab Routine Primary hypertension Expected: 11/16/2023, Expires: 02/15/2024 [facility] Work Phone: Comment on above: Expected: 11/16/2023 , Expires: 02/15/2024 Start: 11-16-2023 End: 02-15-2024 Comprehensive metabolic 2000 panel - Serum or Plasma COMP METABOLIC PANEL Lab Routine Controlled type 2 diabetes mellitus with diabetic neuropathy, with long-term current use of insulin (HCC) Primary hypertension Expected: 11/16/2023, Expires: 02/15/2024 [facility] Work Phone: Comment on above: Expected: 11/16/2023 , Expires: 02/15/2024 Start: 11-16-2023 End: 02-15-2024 Hemoglobin A1c in Blood HGB A1C Lab Routine Controlled type 2 diabetes mellitus with diabetic neuropathy, with long-term current use of insulin (HCC) Expected: 11/16/2023, Expires: 02/15/2024 [facility] Work Phone: Comment on above: Expected: 11/16/2023 , Expires: 02/15/2024 Start: 11-16-2023 End: 02-15-2024 Lipid 1996 panel - Serum or Plasma LIPID PANEL BASIC Lab Routine Controlled type 2 diabetes mellitus with diabetic neuropathy, with long-term current use of insulin (HCC) Mixed hyperlipidemia Expected: 11/16/2023, Expires: 02/15/2024 [facility] Work Phone: Comment on above: Expected: 11/16/2023 , Expires: 02/15/2024 Start: 11-14-[address] [facility] Start: 11-08-2023 ANNUAL PCP TEAM LOSS PREVENTION AGENT TUSHAR DISEASE VISIT ANNUAL PCP TEAM CHRONIC DISEASE VISIT [facility] Start: 11-08-2023 BP CONTROLLED (<130/80) BP CONTROLLE D (<130/80) [facility] Start: 10-06-[address] [facility] Start: 08-17-2023 Advance Directive Discussion Advance Directive Discussion [facility] Start: 08-17-2023 Behavioral Health Screening Behavioral Health Screening [facility] Start: 08-17-2023 Depression Assessment Depression Ass essment [facility] Start: 08-17-2023 zzBehavioral Health Screening zzBehavioral Health Screening [facility] Start: 07-25-2023 Hepatitis C antibody , confirmatory test DILATED RETINAL EXAM [facility] Start: 07-17-2023 End: 01-15-2024 CBC W Auto Differential panel - Blood CBC + DIFF Lab Routine Controlled type 2 diabetes mellitus with diabetic neuropathy, with long-term current use of insulin (HCC) Expected: 07/17/2023 (Approximate), Expires: 01/15/2024 [facility] Work Phone: Comment on above: Expected: 07/17/2023 (Approximate), Expires: 01/15/2024 Start: 07-17-2023 End: 01-15-2024 Comprehensive metabolic 2000 panel - Serum or Plasma COMP METABOLIC PANEL Lab Routine Controlled type 2 diabetes mellitus with diabetic neuropathy, with long-term current use of insulin (HCC) Expected: 07/17/2023 (Approximate), Expires: 01/15/2024 [facility] Work Phone: Comment on above: Expected: 07/17/2023 (Approximate), Expires: 01/15/2024 Start: 07-17-2023 End: 01-15-2024 Hemoglobin A1c in Blood HGB A1C Lab Routine Controlled type 2 diabetes mellitus with diabetic neuropathy, with long-term current use of insulin (HCC) Expected: 07/17/2023 (Approximate), Expires: 01/15/2024 [facility] Work Phone: Comment on above: Expected: 07/17/2023 (Approximate), Expires: 01/15/2024 Start: 07-17-2023 End: 01-15-2024 Lipid 1996 panel - Serum or Plasma LIPID PANEL BASIC Lab Routine Controlled type 2 diabetes mellitus with diabetic neuropathy, with long-term current use of insulin (HCC) Expected: 07/17/2023 (Approximate), Expires: 01/15/2024 [facility] Work Phone: Comment on above: Expected: 07/17/2023 (Approximate), Expires: 01/15/2024 Start: 07-12-2023 Hepatitis B surface antibody level LDL CHOLESTEROL [facility] Start: 06-21-2023 Hemoglobin A1c/Hemoglobin.total in Blood HBA1C [facility] Start: 06-11-2023 Introduction of urin murray catheter [facility] Start: 06-11-2023 Anesthesia intraperitoneal lower abd w/laps nos ANESTH SURG LOWER ABDOMEN [facility] Start: 06-11-2023 Laparoscopy surg rpr initial inguinal hernia LAP ING HERNIA REPAIR INIT [facility] Start: 06-11-[address] [facility] Start: 06-02-2023 3 comp foot exam completed DIABETIC FOOT EXAM [facility] Start: 05-02-2023 BP CONTROLLED (<130/80) BP CONTROLLE D (<130/80) [facility] Start: 04-17-2023 Influenza vaccination INFLUENZA (#1) [facility] Start: 04-10-2023 Hepatitis B screening URINE AL BUMIN:CREATININE RATIO [facility] Start: 04-10-2023 Hepatitis B surface antibody level LDL CHOLESTEROL [facility] Start: 01-31-2023 ANNUAL PCP TEAM LOSS PREVENTION AGENT TUSHAR DISEASE VISIT ANNUAL PCP TEAM CHRONIC DISEASE VISIT [facility] Start: 01-31-2023 COVID-19 VACCINE (3 - Pfizer risk series) COVID-19 VACCINE (3 - Pfizer risk series) [facility] Comment on above: Postponed from 04/05 (Declined at this time) Start: 01-31-2023 SHINGRIX VACCINE (1 of 2) SHINGRIX VACCINE (1 of 2) [facility] Comment on above: Postponed from 12/25 (Declined at this time) Start: 01-15-2023 End: 07-17-2023 CBC W Auto Differential panel - Blood CBC + DIFF Lab Routine Controlled type 2 diabetes mellitus without complication, with long-term current use of insulin (HCC) Expected: 01/15/2023 (Approximate), Expires: 07/17/2023 [facility] Work Phone: Comment on above: Expected: 01/15/2023 (Approximate), Expires: 07/17/2023 Start: 01-15-2023 End: 07-17-2023 Comprehensive metabolic 2000 panel - Serum or Plasma COMP METABOLIC PANEL Lab Routine Controlled type 2 diabetes mellitus without complication, with long-term current use of insulin (HCC) Expected: 01/15/2023 (Approximate), Expires: 07/17/2023 [facility] Work Phone: Comment on above: Expected: 01/15/2023 (Approximate), Expires: 07/17/2023 Start: 01-15-2023 End: 07-17-2023 Hemoglobin A1c in Blood HGB A1C Lab Routine Controlled type 2 diabetes mellitus without complication, with long-term current use of insulin (HCC) Expected: 01/15/2023 (Approximate), Expires: 07/17/2023 [facility] Work Phone: Comment on above: Expected: 01/15/2023 (Approximate), Expires: 07/17/2023 Start: 01-15-2023 End: 07-17-2023 Lipid 1996 panel - Serum or Plasma LIPID PANEL BASIC Lab Routine Controlled type 2 diabetes mellitus without complication, with long-term current use of insulin (HCC) Expected: 01/15/2023 (Approximate), Expires: 07/17/2023 [facility] Work Phone: Comment on above: Expected: 01/15/2023 (Approximate), Expires: 07/17/2023 Start: 01-09-2023 Hemoglobin A1c/Hemoglobin.total in Blood HBA1C [facility] Start: 01-04-2023 Hepatitis B surface antibody level LDL CHOLESTEROL [facility] Start: 12-05-2022 BP CONTROLLED (<130/80) BP CONTROLLE D (<130/80) [facility] Start: 12-02-2022 BP CONTROLLED (<130/80) BP CONTROLLE D (<130/80) [facility] Start: 11-28-2022 BP CONTROLLED (<130/80) BP CONTROLLE D (<130/80) [facility] Start: 11-25-2022 BP CONTROLLED (<130/80) BP CONTROLLE D (<130/80) [facility] Start: 11-22-2022 BP CONTROLLED (<130/80) BP CONTROLLE D (<130/80) [facility] Start: 11-13-2022 BP CONTROLLED (<130/80) BP CONTROLLE D (<130/80) [facility] Start: 11-01-2022 ANNUAL PCP TEAM LOSS PREVENTION AGENT TUSHAR DISEASE VISIT ANNUAL PCP TEAM CHRONIC DISEASE VISIT [facility] Start: 10-19-2022 Hepatitis B surface antibody level LDL CHOLESTEROL [facility] Start: 10-11-2022 Hemoglobin A1c/Hemoglobin.total in Blood HBA1C [facility] Start: 08-27-2022 COLORECTAL CANCER SCREENING COLORECTAL CANCER SCREENING [facility] Start: 08-17-2022 ADVANCE DIRECTIVE DISCUSSION ADVANCE DIRECTIVE DISCUSSION [facility] Start: 08-17-2022 DEPRESSION ASSESSMENT DEPRESSION ASS ESSMENT [facility] Start: 08-02-2022 3 comp foot exam completed DIABETIC FOOT EXAM [facility] Start: 08-01-2022 End: 10-01-2022 Comprehensive metabolic 2000 panel - Serum or Plasma COMP METABOLIC PANEL Lab Routine Controlled type 2 diabetes mellitus without complication, with long-term current use of insulin (HCC) Expected: 08/01/2022 (Approximate), Expires: 10/01/2022 [facility] Work Phone: Comment on above: Expected: 08/01/2022 (Approximate), Expires: 10/01/2022 Start: 08-01-2022 End: 10-01-2022 Hemoglobin A1c in Blood HGB A1C Lab Routine Controlled type 2 diabetes mellitus without complication, with long-term current use of insulin (HCC) Expected: 08/01/2022 (Approximate), Expires: 10/01/2022 [facility] Work Phone: Comment on above: Expected: 08/01/2022 (Approximate), Expires: 10/01/2022 Start: 07-30-2022 Adult depression screening assessment DEPRESSION SCREENING [facility] Start: 07-23-2022 Colonoscopy COLONOSCOPY [facility] Start: 07-23-2022 COLORECTAL CANCER SCREENING COLORECTAL CANCER SCREENING [facility] Start: 07-13-2022 Hepatitis B screening URINE AL BUMIN:CREATININE RATIO [facility] Start: 07-07-2022 Hemoglobin A1c/Hemoglobin.total in Blood HBA1C [facility] Start: 05-11-2022 Urine microalbumin profile [facility] Start: 04-21-2022 Hemoglobin A1c/Hemoglobin.total in Blood HBA1C [facility] Start: 04-17-2022 End: 06-17-2022 ALBUMIN/CREAT RATIO RND UR ALBUMIN/CREAT RATIO RND UR Lab Routine Controlled type 2 diabetes mellitus without complication, with long-term current use of insulin (HCC) Expected: 04/17/2022 (Approximate), Expires: 06/17/2022 [facility] Work Phone: Comment on above: Expected: 04/17/2022 (Approximate), Expires: 06/17/2022 Start: 04-17-2022 End: 06-17-2022 CBC panel - Blood by Automated count CBC Lab Routine Essential hypertension, benign Expected: 04/17/2022 (Approximate), Expires: 06/17/2022 [facility] Work Phone: Comment on above: Expected: 04/17/2022 (Approximate), Expires: 06/17/2022 Start: 04-17-2022 End: 06-17-2022 Comprehensive metabolic 2000 panel - Serum or Plasma COMP METABOLIC PANEL Lab Routine Controlled type 2 diabetes mellitus without complication, with long-term current use of insulin (HCC) Essential hypertension, benign Expected: 04/17/2022 (Approximate), Expires: 06/17/2022 [facility] Work Phone: Comment on above: Expected: 04/17/2022 (Approximate), Expires: 06/17/2022 Start: 04-17-2022 End: 06-17-2022 Hemoglobin A1c in Blood HGB A1C Lab Routine Controlled type 2 diabetes mellitus without complication, with long-term current use of insulin (HCC) Expected: 04/17/2022 (Approximate), Expires: 06/17/2022 [facility] Work Phone: Comment on above: Expected: 04/17/2022 (Approximate), Expires: 06/17/2022 Start: 04-17-2022 Influenza vaccination INFLUENZA (#1) [facility] Start: 2021 BP CONTROLLED (<130/80) BP CONTROLLE D (<130/80) [facility] Start: 2021 SHINGRIX VACCINE (1 of 2) SHINGRIX VACCINE (1 of 2) [facility] Comment on above: Postponed from 12/25 (Declined at this time) Start: 08-17-2021 ADVANCE DIRECTIVE DISCUSSION ADVANCE DIRECTIVE DISCUSSION [facility] Start: 08-17-2021 DEPRESSION ASSESSMENT DEPRESSION ASS ESSMENT [facility] Start: 04-05-2021 COVID-19 VACCINE (3 - Pfizer risk 4-dose series) COVID-19 VACCINE (3 - Pfizer risk 4-dose series) [facility] Start: 04-05-2021 COVID-19 VACCINE (3 - Pfizer risk series) COVID-19 VACCINE (3 - Pfizer risk series) [facility] Start: 01-26-2021 Hepatitis C antibody , confirmatory test DILATED RETINAL EXAM [facility] Start: 07-23-2013 Colonoscopy COLONOSCOPY [facility] Start: 07-23-2013 Screening for malign ant neoplasm of colon Colonoscopy [facility] Start: 2009 Hepatitis B Vaccine (1 of 3 - Risk 3-dose series) Hepatitis B Vaccine (1 of 3 - Risk 3-dose series) [facility] Start: 2009 RSV Vaccine (1 - 1-d ose 60+ series) RSV Vaccine (1 - 1-dose 60+ series) [facility] Start: 2009 RSV Vaccine (1 - Ris k 60-74 years 1-dose series) RSV Vaccine (1 - Risk 60-74 years 1-dose series) [facility] Start: 12-26-1999 SHINGRIX VACCINE (1 of 2) SHINGRIX VACCINE (1 of 2) [facility] Start: 1994 COLOGUARD (FIT-DNA) COLOGUARD (FIT-D NA) [facility] Start: [address] COLONOGRAPHY [facility] Start: 1994 FECAL OCCULT BLOOD FECAL OCCULT BLOO D [facility] Start: 1994 Screening for malign ant neoplasm of colon [facility] Start: 1994 SIGMOIDOSCOPY SIGMOIDOSCOPY [facility] Start: 1968 SHINGRIX VACCINE (1 of 2) SHINGRIX VACCINE (1 of 2) [facility] Start: 12-26-1967 Anxiety Screening Anxiety Screening [facility] Start: 12-26-1967 Depression Screening Depression Scre ening [facility] Blood chemistry [facility] Work Phone: COLOGUARD COLOGUARD Lab Ro utiyonas Screening for colon cancer Ordered: 08/01/2022 [facility] Work Phone: Comment on above: Ordered: 08/01/2022 Patient Education [facility] Work Phone: Patient referral [facility] Work Phone: PFIZER-BIONTECH COVI D-19 BIVALENT BOOSTER VACCINE, AGE 12+ YR PFIZER-BIONTECH COVID-19 BIVALENT BOOSTER VACCINE, AGE 12+ YR Immunization/Injection Routine Encounter for immunization 1 Occurrences starting 05/02/2022 [facility] Work Phone: Comment on above: 1 Occurrences starti ng 05/02/2022 Tdap vaccine 7 yrs/> im TDAP VAC CINE AGE 7+ IM Immunization/Injection Routine Encounter for immunization 1 Occurrences starting 08/01/2022 [facility] Work Phone: Comment on above: 1 Occurrences starti ng 08/01/2022 US.doppler Lower extremity vessels [facility] Work Phone: End: 12-14-2022 XR HIP 2V AP/LAT LEFT (AK,FL,ME) XR HIP 2V AP/LAT LEFT (AK,FL,ME) Radiology Routine Pain in left hip 1 Occurrences starting 11/15/2021 until 12/14/2022 [facility] Work Phone: Comment on above: 1 Occurrences starti ng 11/15/2021 until 12/14/2022 [facility] Immunizations Immunization Date Immunization Notes Care Provider Quinton drake 05-01-2023 influenza (HD-IIV4) vaccine, age 65+ yr, high dose, quadrivalent, PF (FLUZONE HIGH-DOSE) Thomas Mcclendon RN [facility] Work Phone: 05-01-2023 influenza virus vacc ine, unspecified formulation Thomas Mcclendon RN [facility] 05-02-2022 influenza, high-dose , quadrivalent vaccine (FLUZONE HIGH DOSE QUADRIVALENT) Anna Hernandez HARVEST SUPERVISOR.COFFEE SHOP ATTENDANT Work Phone: [facility] Work Phone: 07-26-2021 influenza, high-dose , quadrivalent vaccine (FLUZONE HIGH DOSE QUADRIVALENT) Violeta Islas PT Work Phone: [facility] 03-08-2021 COVID-19 vaccine, ag e 12+ yr (PFIZER-BIONTECH - PURPLE TOP) Violeta Islas PT Work Phone: [facility] Work Phone: 02-15-2021 COVID-19 vaccine, ag e 12+ yr (PFIZER-BIONTECH - PURPLE TOP) Violeta Islas PT Work Phone: [facility] Work Phone: 05-24-2020 influenza, high-dose , quadrivalent vaccine (FLUZONE HIGH DOSE QUADRIVALENT) Violeta Islas PT Work Phone: [facility] Work Phone: 08-23-2019 pneumococcal polysaccharide vaccine, 23 valent Violeta Islas PT Work Phone: [facility] Work Phone: 05-17-[address] Evie Grewal Work Phone: [facility] 05-17-2019 influenza, seasonal, injectable Anna Hernandez HARVEST SUPERVISOR.COFFEE SHOP ATTENDANT Work Phone: [facility] Work Phone: 05-17-2019 influenza, seasonal, injectable, preservative free Violeta Islas PT Work Phone: [facility] 05-17-2019 pneumococcal conjuga te vaccine, 13 valent Violeta Islas PT Work Phone: [facility] 04-26-2019 influenza, high dose seasonal, preservative-free Violeta Islas PT Work Phone: [facility] 06-14-2018 influenza, high dose seasonal, preservative-free Violeta HaltalatcherelleRaissa PT Work Phone: [facility] 09-14-2015 pneumococcal conjuga te vaccine, 13 valent Violeta Islas PT Work Phone: [facility] 05-21-2015 influenza, high dose seasonal, preservative-free Violeta Islas PT Work Phone: [facility] Work Phone: 07-18-2014 influenza, seasonal, injectable Violeta Islas PT Work Phone: [facility] 07-08-2013 influenza virus vacc ine, unspecified formulation Violeta Islas PT Work Phone: [facility] 05-11-2012 influenza virus vacc ine, unspecified formulation Violeta Islas PT Work Phone: [facility] 05-11-2012 pneumococcal polysaccharide vaccine, 23 valent Violeta Islas PT Work Phone: [facility] 05-11-2012 tetanus toxoid, redu osmel diphtheria toxoid, and acellular pertussis vaccine, adsorbed Violeta Islas PT Work Phone: [facility] 10-16-2011 influenza (HD-IIV4) vaccine, age 65+ yr, high dose, quadrivalent, PF (FLUZONE HIGH-DOSE) Thomas Mcclendon RN [facility] Work Phone: 08-17-2006 pneumococcal polysaccharide vaccine, 23 valent Thomas Mcclendon RN [facility] Work Phone: Payers Date Payer Category Payer Self-pay [id number] 2020 Private Health Insurance MMO MED ICARE SUPPLEMENT [id number] 2020 Unknown MMO MMO MEDICARE SUPPLEMENT [id number] 2020-Present [phone] [address] [place] [address] Indemnity [id number] 2020 Unknown MMO MMO MEDICARE SUPPLEMENT [id number] 2020-Present [phone] [address] [place] [address] Indemnity [id number] 2015 Unknown [id number] 2014 Medicare MEDICARE MEDICAR E A AND B [id number] 2014-Present [phone] [address] [address] [place] [address] Medicare [id number] 2014 Medicare [id number] 2014 Medicare [id number] 1950 Unknown [id number] Medicare [id number] Unknown [id number] Unknown [id number] Unknown [id number] Social History Date Type Detail Facility Start: 11-20-2011 End: 01-31-2025 Tobacco smoking status NHIS Never smoked tobacco [facility] Work Phone: Start: 11-01-2021 End: 07-29-2024 Alcohol intake Current non-drinker of alcohol (finding) [facility] Start: 06-11-2020 End: 07-25-2022 History SDOH Alcohol Frequency 1 [facility] Start: 06-11-2020 History SDOH Alcohol Std Drinks 98 [facility] Start: 08-16-2019 End: 07-25-2022 History SDOH Social Connections Phone 2 [facility] Start: 05-17-2020 End: 07-25-2022 History SDOH Social Connections Get Together 4 [facility] Start: 08-16-2019 End: 07-25-2022 History SDOH Social Connections Living 3 [facility] Start: 08-22-2020 End: 07-25-2022 History SDOH Housing Places Lived 0 [facility] Start: 02-14-2020 Education 12 [facility] Start: 1950 Sex Assigned At Male [facility] Start: 11-02-2021 End: 07-12-2022 Exposure to SARS-CoV-2 (event) Not sure [facility] Start: 11-04-2021 End: 12-31-2021 Exposure to SARS-CoV-2 (event) Unable to assess [facility] Start: 01-24-2022 End: 11-14-2023 Tobacco smoking status NHIS Unknown if ever smoked [facility] Start: 12-14-2020 None [facility] Start: 11-01-2016 Spouse/ Significant Other [facility] Start: 12-14-2020 Non-smoker [facility] Start: 11-20-2011 Tobacco use and exposure Smokeless tobacco non-user [facility] Start: 07-25-2022 History SDOH Physical Activity DPW 7 [facility] Start: 07-25-2022 End: 01-16-2023 History of Social function [facility] Start: 07-25-2022 End: 01-16-2023 Social connection and isolation [facility] Do you belong to any clubs or organizations such as spiritism groups, unions, fraternal or athletic groups, or school groups? No [facility] Are you now , , , , never or living with a partner? [facility] How often to you hav e a drink containing alcohol? Never [facility] How many standard dr inks containing alcohol do you have on a typical day? Patient does not drink [facility] How hard is it for y ou to pay for the very basics like food, housing, medical care, and heating Not very hard [facility] Do you feel stress - tense, restless, nervous, or anxious, or unable to sleep at night because your mind is troubled all the time - these days [OSQ] Not at all [facility] (I/We) worried wheth er (my/our) food would run out before (I/we) got money to buy more. Never true [facility] Start: 08-24-2021 Gender identity Identifies as male gender (finding) [facility] Start: 08-24-2021 Sexual orientation Heterosexual (finding) [facility] Start: 09-02-2024 End: 12-02-2024 Alcoholic beverage intake [facility] Procedure Code Equipment Code Equipment Origin al Text Equipment Identifier Dates Liner G7 50mm H Acetabular 2 Mobility [id number] Start: 11-11-2021 Longevity Acetab ular Liner H 28mm X 50mm [id number] [id number] Start: 11-11-2021 Shell G7 64mm H Offset Hemisphere [place] Acetabular 4 Hole Limit Hip - [id number] Start: 11-11-2021 Head G7 28mm Bio lox Delta Femoral Hip - [id number] Start: 11-11-2021 Sleeve G7 -3mm Offset Taper Biolox Delta Option Titanium Centering Type 1 - [id number] Start: 11-11-2021 Stem Taperloc 13 3d 15 Pps 34.3mm Femoral Type 1 Taper Complete Reduced - [id number] Start: 11-11-2021 Screw Trilogy 6. 5mm Tivanium 20mm Bone Self Tap Sterile Hip Cortical - [id number] Start: 11-11-2021 [id number], [id number], [id number], [id number], [id number], [id number] Start: 04-26-2019 End: 01-24-2025 Comment on above: Test blood sugar(s) 3 times daily. Dx: E11.65, DM. Insulin: Yes Use one needle per d ose. 4 per day. Test blood sugar(s) 4 times daily. Dx: E11.65, DM. 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 Lose wt Personal health goal Comment on above: Formatting of this n ote might be different from the original. Improved Ambulation after Hip Replacement Personal health goal Comment on above: Formatting of this n ote might be different from the original. Increased ability to exercise and Improved physical functioning. Personal health goal Comment on above: Formatting of this n ote might be different from the original. Patient has the following Congestive Heart Failure Goals: Two PCP Visits annually and Two Cardiology Visits annually CHF Education given and reviewed with patient --sent on 01/13/23 Keeping Track of Weight Patient will meet these goals by 01/13/23 (describe interventions done by PCC) Formatting of this n ote might be different from the original. Patient has the following Congestive Heart Failure Goals: Two PCP Visits annually and Two Cardiology Visits annually CHF Education given and reviewed with patient --sent on 01/13/23 Keeping Track of Weight Patient will meet these goals by 01/13/23 (describe interventions done by PCC) Pt's Goal Prevent complications from Hernia, or CHF Formatting of this n ote might be different from the original. Patient has the following Congestive Heart Failure Goals: Two PCP Visits annually and Two Cardiology Visits annually CHF Education given and reviewed with patient --sent on 01/13/23 Keeping Track of Weight Patient will meet these goals by 01/13/23 (describe interventions done by PCC) Pt's Goal Prevent complications from Hernia, or CHF 2/13/24 Pt's goal:keep BS in good range. Comment on above: Formatting of this n ote might be different from the original. Lose wt Comment on above: Formatting of this n ote might be different from the original. Improved Ambulation after Hip Replacement Comment on above: Formatting of this n ote might be different from the original. Increased ability to exercise and Improved physical functioning. Comment on above: Formatting of this n ote might be different from the original. Patient has the following Congestive Heart Failure Goals: Two PCP Visits annually and Two Cardiology Visits annually CHF Education given and reviewed with patient --sent on 01/13/23 Keeping Track of Weight Patient will meet these goals by 01/13/23 (describe interventions done by PCC) Functional Status Date Assessment Result Facility 11-12-2021 Are you deaf, or do you have serious difficulty hearing No 11/12/2021 1:41 PM EDScott Alba RN No [facility] 11-12-2021 Are you blind, or do you have serious difficulty seeing, even when wearing glasses No 11/12/2021 1:41 PM Scott Dong RN No [facility] 11-12-2021 Do you have serious difficulty walking or climbing stairs No 11/12/2021 1:41 PM Scott Dong RN No [facility] 11-12-2021 Do you have difficul ty dressing or bathing No 11/12/2021 1:41 PM Scott Dong RN No [facility] 11-12-2021 Because of a physica l, mental, or emotional condition, do you have difficulty doing errands alone such as visiting a physician's office or shopping No 11/12/2021 1:41 PM Scott Dong RN No [facility] Mental Status Date Assessment Result Facility 01-31-2025 Cognitive function Level Of Cons ciousness Awake;Alert;Appropriate;Fol lows Commands [facility] Work Phone: 11-14-2023 Cognitive function Level Of Cons ciousness Awake;Alert;Appropriate;Fol lows Commands [facility] Work Phone: 10-06-2023 Cognitive function Voice/Name [facility] Work Phone: 06-11-2023 Cognitive function Drowsy Dante Jeffries [facility] Work Phone: 11-12-2021 Because of a physica l, mental, or emotional condition, do you have serious difficulty concentrating, remembering, or making decisions No 11/12/2021 1:41 PM EDT Scott Sow, RN No [facility] Clinical Notes 01-19-2019 to 06-23-2025 Papa Gar - 03/03/2025 3:02 PM EDTMargot Donahue RN - 03/03/2025 2:51 PM EDTPatient Lonnie Stubbs MA - 03/01/2025 11:03 AM EDT Note Date & Type Note Facility 06-23-2025 Note HNO ID: [id number] Author: PAPA GAR, ? Service: ? Author Type: Physician Type: Progress Notes Filed: 06/24/2025 06:36 Note Text: Last saw pcp: 06/03/25 Subjective: Patient presents to clinic c/o painful toenails. They state that the nails are especially painful with shoe gear and pressure. Patient states that nails 1-5 b/l are painful. Patient admits to being diabetic. No other pedal complaints at this time. Patient states no change in medications or medical history since last visit. Objective: Patient presents to clinic ambulating in diabetic shoes Vasc: DP and PT pulses are nonpalpable bilateral. CFT is less than 5 seconds bilateral. Skin temperature is warm to cool proximal to distal bilateral. There is moderate edema or varicosities noted. Neuro: Protective sensation is absent to the foot and toes when tested with the 5.07 SWM bilateral. Vibratory sensation is absent at the hallux IPJ bilateral. The hallux is downgoing bilateral. Derm: Nails 1-5 b/l are painful, discolored-yellow, thick, crumbly, dystrophic and with subungal debris. Skin is of normal turgor, texture and hair growth is absent bilateral. There are no hyperkeratosis, ulcerations, scars, verruca or other lesions noted. Ortho: Muscle strength is 5/5 for all pedal groups tested. Ankle joint DF is decreased with the knee extended with no pain or crepitus noted. 1st MPJ ROM is decreased bilateral. Assessment: (B35.1) Onychomycosis (primary encounter diagnosis) (M79.675) Pain in toe of left foot (M79.674) Pain in toe of right foot (I73.9) PAD (peripheral artery disease) (E11.42) Diabetic polyneuropathy associated with type 2 diabetes mellitus (HCC) Plan: Patient was seen and evaluated. Nails 1-5 bilateral were debrided in length and thickness. Patient was instructed on the continued importance of diabetic foot care along with proper diet and keeping their blood sugar under control to prevent complications. Patient is to RTC in 3-4 months. Papa Gar DPM [facility] 06-23-2025 Note HNO ID: [id number] Author: MARGOT DONAHUE RN Service: ? Author Type: Registered Nurse Type: Progress Notes Filed: 06/24/2025 06:36 Note Text: Patient presents with: Left Foot - Established Patient, Follow Up, Diabetic Foot Care Right Foot - Established Patient, Follow Up, Diabetic Foot Care Patient presents for follow up diabetic foot/nail care [facility] 03/03/25 [facility] 03-03-2025 Note HNO ID: [id number] Author: PAPA GAR, ? Service: ? Author Type: Physician Type: Progress Notes Filed: 03/03/2025 15:21 Note Text: Last saw pcp: 10/14/24 Subjective: Patient presents to clinic c/o painful toenails. They state that the nails are especially painful with shoe gear and pressure. Patient states that nails 1-5 b/l are painful. Patient admits to being diabetic. No other pedal complaints at this time. Patient states no change in medications or medical history since last visit. Objective: Patient presents to clinic ambulating in diabetic shoes Vasc: DP and PT pulses are nonpalpable bilateral. CFT is less than 5 seconds bilateral. Skin temperature is warm to cool proximal to distal bilateral. There is moderate edema or varicosities noted. Neuro: Protective sensation is decreased to the foot and toes when tested with the 5.07 SWM bilateral. Vibratory sensation is absent at the hallux IPJ bilateral. The hallux is downgoing bilateral. Derm: Nails 1-5 b/l are are severely thick, painful, discolored-yellow, thick, crumbly, dystrophic and with subungal debris. Skin is ruborous, cool and hair growth is absent bilateral. There are no hyperkeratosis, ulcerations, scars, verruca or other lesions noted. Drained blister of left anterior leg. No signs of infection. Ortho: Muscle strength is 5/5 for all pedal groups tested. Ankle joint DF is decreased with the knee extended with no pain or crepitus noted. 1st MPJ ROM is decreased bilateral. Assessment: (B35.1) Onychomycosis (primary encounter diagnosis) (M79.675) Pain in toe of left foot (M79.674) Pain in toe of right foot (I73.9) PAD (peripheral artery disease) (E11.42) Diabetic polyneuropathy associated with type 2 diabetes mellitus (HCC) (I87.2) Venous insufficiency Plan: Patient was seen and evaluated. Nails 1-5 bilateral were debrided in length and thickness. Bleed was present to left great toe. Band aide applied. Discussed removal of toenail with chemical matrixectomy. I do feel this could be an option for patient to consider given the severe thickening of his toenails. Would warrant pvr prior. He is not interested in removal. Discussed small blister of left leg due to swelling. No signs of infection and has already drained. Continue with compression stockings. Patient was instructed on the continued importance of diabetic foot care along with proper diet and keeping their blood sugar under control to prevent complications. I stressed the importance of avoiding barefoot walking, wearing good shoes and inspection of feet. Patient is to RTC in 3-4 months. Papa Gar DPM [facility] 03-03-2025 History of Presen t illness Narrative Last saw pcp: 10/14/24 Subjective: Patient presents to clinic c/o painful toenails. They state that the nails are especially painful with shoe gear and pressure. Patient states that nails 1-5 b/l are painful. Patient admits to being diabetic. No other pedal complaints at this time. Patient states no change in medications or medical history since last visit. Objective: Patient presents to clinic ambulating in diabetic shoes Vasc: DP and PT pulses are nonpalpable bilateral. CFT is less than 5 seconds bilateral. Skin temperature is warm to cool proximal to distal bilateral. There is moderate edema or varicosities noted. Neuro: Protective sensation is decreased to the foot and toes when tested with the 5.07 SWM bilateral. Vibratory sensation is absent at the hallux IPJ bilateral. The hallux is downgoing bilateral. Derm: Nails 1-5 b/l are are severely thick, painful, discolored-yellow, thick, crumbly, dystrophic and with subungal debris. Skin is ruborous, cool and hair growth is absent bilateral. There are no hyperkeratosis, ulcerations, scars, verruca or other lesions noted. Drained blister of left anterior leg. No signs of infection. Ortho: Muscle strength is 5/5 for all pedal groups tested. Ankle joint DF is decreased with the knee extended with no pain or crepitus noted. 1st MPJ ROM is decreased bilateral. Assessment: (B35.1) Onychomycosis (primary encounter diagnosis) (M79.675) Pain in toe of left foot (M79.674) Pain in toe of right foot (I73.9) PAD (peripheral artery disease) (E11.42) Diabetic polyneuropathy associated with type 2 diabetes mellitus (HCC) (I87.2) Venous insufficiency Plan: Patient was seen and evaluated. Nails 1-5 bilateral were debrided in length and thickness. Bleed was present to left great toe. Band aide applied. Discussed removal of toenail with chemical matrixectomy. I do feel this could be an option for patient to consider given the severe thickening of his toenails. Would warrant pvr prior. He is not interested in removal. Discussed small blister of left leg due to swelling. No signs of infection and has already drained. Continue with compression stockings. Patient was instructed on the continued importance of diabetic foot care along with proper diet and keeping their blood sugar under control to prevent complications. I stressed the importance of avoiding barefoot walking, wearing good shoes and inspection of feet. Patient is to RTC in 3-4 months. Papa Gar DPM Patient presents with: Left Foot - Established Patient, Follow Up, Diabetic Foot Care Right Foot - Established Patient, Follow Up, Diabetic Foot Care Patient presents for follow up diabetic foot/nail care. LADAN 12/02/24 documented in this encounter [facility] 03-03-2025 Instructions Papa Gar - 03/03/2025 3:02 PM EDT Diabetes Foot Care Instructions When you have diabetes, proper foot care is very important. Poor foot care may lead to amputation of a foot or leg. As a person with diabetes, you are more vulnerable to foot problems, because diabetes can damage your nerves and reduce blood flow to your feet. Here are some diabetes foot care tips to follow: Wash and Dry Your Feet Daily Use mild soaps Use warm water Pat your skin dry; do not rub. Thoroughly dry your feet. After washing, use lotion on your feet to prevent cracking. Do not put lotion between your toes. Examine Your Feet Each Day Check the tops and bottoms of your feet. Have someone else look at your feet if you cannot see them. Check for dry, cracked skin. Look for blisters, cuts, scratches, or other sores. Check for redness, increased warmth, or tenderness when touching any area of your feet. Check for ingrown toenails, corns, and calluses. If you get a blister or sore from your shoes, do not pop it. Apply a bandage and wear a different pair of shoes. Take Care of Your Toenails Cut toenails after bathing, when they are soft. Cut toenails straight across and smooth with a nail file. Avoid cutting into the corners of toes. Do not cut cuticles. If you have neuropathy (or decreased sensation in your feet) a passport support associate should always cut your toenails. Be Careful When Exercising Walk and exercise in comfortable shoes. Do not exercise when you have open sores on your feet. Protect Your Feet With Shoes and Socks Never go barefoot. Always protect your feet by wearing shoes or hard-soled slippers or footwear. Avoid shoes with high heels and pointed toes. Avoid shoes that expose your toes or heels (such as open-toed shoes or sandals). These types of shoes increase your risk for injury and potential infections. Try on new footwear with the type of socks you usually wear. Do not wear new shoes for more than an hour at a time. Change your socks daily. Look and feel inside your shoes before putting them on to make sure there are no foreign objects or rough areas. Avoid tight socks. Wear natural-fiber socks (cotton, wool, or a cotton-wool blend). Wear special shoes if your health care provider recommends them. Wear shoes/boots that will protect your feet from various weather conditions (cold, moisture, etc.). Make sure your shoes fit properly. If you have neuropathy (nerve damage), you may not notice that your shoes are too tight. Perform the footwear test described below. Footwear Test Use this simple test to see if your shoes fit correctly: Stand on a piece of paper. (Make sure you are standing and not sitting, because your foot changes shape when you stand.) Trace the outline of your foot. Trace the outline of your shoe. Compare the tracings: Is the shoe too narrow? Is your foot crammed into the shoe? The shoe should be at least 1/2 inch longer than your longest toe and as wide as your foot. Proper Shoe Choices The following types of shoes are best for people with diabetes Closed toes and heels Leather uppers without a seam inside At least 1/2 inch extra space at the end of your longest toe Inside of shoe should be soft with no rough areas Outer sole should be made of stiff material Shoes should be at least as wide as your feet Tips for Foot Care in Diabetes Don't wait to treat a minor foot problem if you have diabetes. Follow your health care provider's guidelines and first aid guidelines. Report foot injuries and infections to your health care provider immediately. Check water temperature with your elbow, not your foot. Do not use a heating pad on your feet. Do not cross your legs. Do not self-treat your corns, calluses, or other foot problems. Go to your health care provider or passport support associate to treat these conditions. You have a small bleed on left great toe following debridement. Apply band aide and neosporin to the toe daily for the next few days. If you have any issues, please contact our office. Wear compression stockings to lower extremity documented in this encounter [facility] 03-03-2025 Note HNO ID: [id number] Author: MARGOT DONAHUE RN Service: ? Author Type: Registered Nurse Type: Progress Notes Filed: 03/03/2025 15:21 Note Text: Patient presents with: Left Foot - Established Patient, Follow Up, Diabetic Foot Care Right Foot - Established Patient, Follow Up, Diabetic Foot Care Patient presents for follow up diabetic foot/nail care. LADAN 12/02/24 [facility] 03-01-2025 Note HNO ID: [id number] Author: LONNIE ALMAZAN MA Service: ? Author Type: Vehicle Delivery Worker Type: Progress Notes Filed: 03/01/2025 11:03 Note Text: POPULATION HEALTH NAVIGATION OUTREACH Action/I March 01, 2025 Reason for Outreach Care Gap/HCC or Scheduling Wellness Visits Care Gaps due: Medicare Annual Wellness Visit Patient Contacted: Unable or unnecessary to reach patient: Flipped existing appointment Navigation Signature: Lonnie Almazan MA March 01, 2025 11:03 AM [facility] 03-01-2025 History of Presen t illness Narrative POPULATION HEALTH NAVIGATION OUTREACH Action/I March 01, 2025 Reason for Outreach Care Gap/HCC or Scheduling Wellness Visits Care Gaps due: Medicare Annual Wellness Visit Patient Contacted: Unable or unnecessary to reach patient: Flipped existing appointment Navigation Signature: Lonnie Almazan MA March 01, 2025 11:03 AM documented in this encounter [facility] 03-01-2025 Note Patient Outreach (NE TNAV) NOKENDRICK ([id number]) 1950 M Date Time Provider Department 03/01/25 LONNIE ALMAZAN During your visit today, we recorded the following information about you: Lonnie Almazan MA 03/01/2025 11:03 AM Signed POPULATION HEALTH NAVIGATION OUTREACH Action/FYI March 01, 2025 Reason for Outreach Care Gap/HCC or Scheduling Wellness Visits Care Gaps due: Medicare Annual Wellness Visit Patient Contacted: Unable or unnecessary to reach patient: Flipped existing appointment Navigation Signature: Lonnie Almazan MA March 01, 2025 11:03 AM Allergies As of Date: 03/01/2025 Noted Allergy Reaction OXYCODONE 11/26/2021 11 - Vomiting CIPROFLOXACIN 03/30/2017 11 - Vomiting Comments: dizziness CRESTOR (ROSUVASTATIN) 07/15/2006 5 - Intolerance Comments: Severe myalgias; could not work because so severe LIPITOR (ATORVASTATIN CALCIUM) 11/20/2011 14 - Other: See Comments Comments: Joint pain PRAVACHOL (PRAVASTATIN SODIUM) 02/09/2012 5 - Intolerance Comments: myalgias STATINS ([id number] REDUCTAS*07/20/2009 5 - Intolerance Comments: Muscle aches; so bad cannot move Date Reviewed: 01/27/2025 Reviewed by: Leanne Terry LPN - Fully Assessed Prescriptions as of 03/01/2025 - insulin needles, DISPOSABLE, (PEN NEEDLE) 31 gauge x 12/30 Use one needle per dose. 4 per day. - blood sugar diagnostic (ONETOUCH ULTRA TEST) test strip Test blood sugar(s) 4 times daily. Dx: E11.65, DM. Insulin: Yes (Meals and bedtime--4 injections) - carvedilol (COREG) 12.5 mg tablet Take 1 tablet by mouth two times a day. - ezetimibe (ZETIA) 10 mg tablet Take 1 tablet by mouth once daily. - Cholecalciferol, Vitamin D3, 50 mcg (2,000 unit) cap Take 1 capsule by mouth once daily. - insulin aspart U-100 (NOVOLOG FLEXPEN U-100 INSULIN) 100 unit/mL (3 mL) Inject 10 Units subcutaneously three times a day before meals. As directed when eats meals - insulin glargine (LANTUS SOLOSTAR U-100 INSULIN) 100 unit/mL (3 mL) Inject 5 Units subcutaneously daily at bedtime. (Adjust as indicated) Needs 1 pen a month so please fill 3 pens per 3 months. Give 5 pens if not able to split the box - metFORMIN ER (GLUCOPHAGE XR) 500 mg 24 hr tablet Take 4 tablets by mouth once daily. - ramipril (ALTACE) 10 mg capsule Take 1 capsule by mouth once daily. - docusate sodium (COLACE) 100 mg capsule Take 200 mg by mouth three times daily as needed for constipation. - aspirin, enteric coated (ASPIRIN, ENTERIC COATED) 81 mg EC tablet Take 1 tablet by mouth twice daily. Problem List As Of Date 03/01/2025 Noted Resolved DM w/o complication type II [E11.9] 07/15/2006 12/22/2011 Primary hypertension [I10] 07/15/2006 Mixed hyperlipidemia [E78.2] 07/22/2006 Vitamin D deficiency [E55.9] 05/02/2011 Pleural effusion [J90] 11/19/2011 12/11/2014 CLL (chronic lymphocytic leukemia) [C91.10] 11/20/2011 Controlled type 2 diabetes mellitus with diabet*12/11/2011 CVA (cerebral infarction) (HCC) [I63.9] 12/22/2011 07/18/2014 CHF (congestive heart failure) [I50.9] 12/22/2011 CAD (coronary artery disease) [I25.10] 12/22/2011 CVA, old, cognitive deficits [I69.319] 09/15/2012 Statin intolerance [Z78.9] 11/03/2013 BMI 39.0-39.9,adult [Z68.39] 04/16/2017 Prostate cancer (HCC) [C61] 12/11/2014 BPH (benign prostatic hyperplasia) [N40.0] 12/11/2014 Elevated PSA [R97.20] 12/27/2014 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*03/06/2015 Hot flashes [R23.2] 12/27/2015 Sebaceous cyst [L72.3] 05/21/2016 Morbid obesity (HCC) [E66.01] 09/30/2017 05/01/2023 Uncontrolled type 2 diabetes mellitus with hype*01/19/2019 11/01/2021 Primary osteoarthritis of left hip [M16.12] 11/01/2021 Obesity, Class I, BMI 30-34.9 [E66.811] 12/08/2022 Stage 3a chronic kidney disease (HCC) [N18.31] 01/16/2023 08/20/2023 PAD (peripheral artery disease) (HCC) [I73.9] 08/20/2023 Encounter Status:Closed by LONNIE ALMAZAN on 03/01/25 [facility] 02-03-2025 Telephone encount er Note Since symptoms resolved, no need for follow up now Follow up if has recurrence and no explanation found to address on his own. [facility] 02-03-2025 Miscellaneous Notes Formattin g of this note might be different from the original. Since symptoms resolved, no need for follow up now Follow up if has recurrence and no explanation found to address on his own. Patient called to report that he was examined at [facility] yesterday for sudden onset of vomiting and sensation of low blood sugar. He states that the ER physicians ran lab work and urinalysis resulting in no actionable findings. Patient declined to schedule hospital follow up visit with PCP at this time due to no remaining symptoms today. Please contact patient if further discussion or appointment is necessary. documented in this encounter [facility] 02-01-2025 Telephone encount er Note Patient called to report that he was examined at [facility] yesterday for sudden onset of vomiting and sensation of low blood sugar. He states that the ER physicians ran lab work and urinalysis resulting in no actionable findings. Patient declined to schedule hospital follow up visit with PCP at this time due to no remaining symptoms today. Please contact patient if further discussion or appointment is necessary. [facility] 01-31-2025 Discharge summary [facility] 01-31-2025 Discharge summary Note Date/Time January 31, 2025 2:08pm [facility] Medical Records Department [address] [place] [address] Emergency Department Summary 01/31/25 MR#: [id number] Acct: [id number] Name: KENDRICK BARRAZA Rep #:[id number] : 1950 74 From: Gustabo Florian MD PCP: Dr. Evie Grewal MD Status:RE G ER Location: ED HPI History of Present Illness Chief Complaint: General Illness Narrative Narrative: 74-year-old male past medical history of diabetes, on sliding scale insulin and Lantus at night, presents with nausea and vomiting, 2 episodes today after eating breakfast. He denies any pain, no abdominal pain, no fevers or chills. EMS reports that his called because of the nausea and vomiting and he was diaphoretic. He states that while he was in the ambulance riding backwards he felt lightheaded and slightly nauseated, but his symptoms have resolved. He denies any pain anywhere. No chest pain or abdominal pain, no diarrhea. He states he feels well, and he is not quite sure why his took it upon herselfto call EMS. He denies any blood in his emesis, no exacerbating or alleviating factors, but he feels back to his baseline and normal currently. [facility] Medical History Wears glasses Ambulates with cane Insulin dependent diabetes mellitus Prostate disease Arthritis Back pain Dietary restriction Heartburn Non-smoker Leg cramps History of pain when walking History of echocardiogram History of stress test Cardiology follow-up encounter History of heart attack Syncope CVA (cerebral vascular accident) Stenosis of right carotid artery Mixed hyperlipidemia History of pleural effusion Essential hypertension Presence of stent in coronary artery (~05/04/20) Atherosclerotic heart disease of [place] coronary artery without angina pectoris Blood in the urine Morbid obesity Left pontine stroke DM2 (diabetes mellitus, type 2) Chronic systolic CHF (congestive heart failure) Altered mental status CLL (chronic lymphocytic leukemia) Home Medications ?Medication ?Instructions ?Recorded ?Last Taken ?Type carvedilol 12.5 mg tablet 12.5 mg PO BID 11/03/1601/15 Rx ezetimibe 10 mg tablet (Zetia) 10 mg PO DAILY choleste rol 06/14/19 01/31/25 History ramipril 10 mg capsule 10 mg PO DAILY 06/14/2101/15 History insulin glargine 100 unit/mL (3 8 unit subcut QHS PRN SLIDING SCALE 01/24/22 Unknown History mL) subcutaneous pen insulin aspart U-100 100 unit/mL 1 unit subcut QAC PRN SLIDING SCALE 12/26/22 01/31/25 History (3 mL) subcutaneous pen docusate sodium 100 mg capsule 100 mg PO BID constipat ion 05/13/24 01/31/25 History (Colace) acetaminophen 325 mg tablet 325 mg PO Q4H PRN Pain Or Fever 01/31/25 Unknown History aspirin 81 mg chewable tablet 162 mg PO DAILY 01/31/25 01/31/25 History cholecalciferol (vitamin D3) 50 50 mcg PO DAILY 01/31/25 History mcg (2,000 unit) tablet (D3 DOTS) metformin 500 mg tablet,extended 2,000 mg PO DAILY 01/31/25 History release 24 hr Allergy/AdvReac Type Severity Reaction Status Date / Time atorvastatin (From Lipitor) Allergy Severe Other Verified 01/31/25 11:52 pravastatin (From Pravachol) Allergy Severe Other Verified 01/31/25 11:52 rosuvastatin (From Crestor) Allergy Severe Other Verified 01/31/25 11:52 Jzfqghr-AYO-VvF Reductase Allergy Severe Other Verified 01/31/25 11:52 Inhibitor (Bvralvi-Ibo-Eun Reductase Inhibitor) ciprofloxacin AdvReac Severe dizziness, Verified 01/31/25 11:52 vomiting Family History Mother CAD (coronary artery disease) CVA (cerebral vascular accident) Surgical History S/P inguinal hernia repair History of cardiac catheterization Hx of colonoscopy History of cystoscopy History of left hip replacement (~10/2021) History of bilateral cataract extraction Presence of coronary angioplasty implant and graft (~02/20/13) Social History household members: spouse Smoking Status: Never smoker alcohol intake: never substance use type: does not use caffeine: No ROS ROS ED ROS Narrative Review of systems positive for nausea and vomiting twice today after breakfast. No abdominal pain, no problems with bowel movements, no dysuria or hematuria, nofevers or chills, no chest pain. Symptoms resolved. EXAM Physical Exam Narrative Exam Narrative: Afebrile. Vital signs noted. Nontoxic-appearing. Cardiovascular examination reveals regular rate and rhythm. Lungs are clear to auscultation bilaterally. The abdomen is soft, nontender, without guarding or rebound. Positive bowel sounds. Nonsurgical abdomen. Neurological examination nonfocal, nonlateralizing. Awake, alert, oriented, interactive, appropriate. Trace pedaledema symmetric and equal bilaterally. Const Vital Signs: 01/31/25 11:51 01/31/25 12:51 Temperature 97.5 F L Temperature Source Oral Pulse Rate 69 67 Respiratory Rate 16 15 Blood Pressure 185/86 H 178/74 H Blood Pressure Mean 119 108 Pulse Ox 100 100 Oxygen Delivery Method Room Air Room Air MDM MDM MDM Narrative Medical decision making narrative: Differential diagnosis includes but not limited to diabetic ketoacidosis versus pancreatitis versus partial small bowel obstruction. I doubt diverticulitis based on the history and physical. I do not feel he needs CT imaging as the patient has a nontender abdomen. I will obtain x-rays of the chest and abdomen as well as urinalysis, CBC, CMP, and lipase. He declined any antiemetics. EKG was obtained and interpreted by myself independently as normal sinus rhythm at 69 bpm without ectopy or acute ST changes. No STEMI. I reviewed his laboratory work and he has normal white count of 6.4 with hemoglobin normal at 15.6, hematocrit 46.3, platelet count 207. Electrolyte panel is significant fora BUN of 22 and creatinine 1.21 with glucose 94, LFTs are grossly unremarkable. Lipase normal at 55 so I doubt pancreatitis. Urinalysis is negative for infection, negative for ketones. I do not feel antibiotics are indicated. X-rays of the abdomen and chest interpreted by myself independently show the chestto be clear of any pneumonia or pneumothorax. I reviewed the radiology report confirms my independent interpretation. Also on the abdominal x-rays, there is a large amount of stool in the colon on my interpretation, which is confirmed bythe radiology report. However it is a nonobstructive pattern. Upon repeat examination at approximately 1400, he is resting comfortably. His is at the bedside. He declined any antiemetics for home use and feels well enough to be discharged. I do not feel he requires observation or admission at this time. Return instructions to the emergency department were reviewed. Disposition is discharged home in stable condition. History & Record Review Discussion w/independent historian: Patient and Family () Lab Data Attestation: I reviewed the patient's lab results. Labs: Laboratory Results - last 24 hr 01/31/25 01/31/25 11:50 13:25 WBC 6.4 RBC 5.32 Hgb 15.6 Hct 46.3 MCV 87.0 MCH 29.3 MCHC 33.7 RDW Std Deviation 44.5 H RDW Coeff of Braxton 13.9 Plt Count 207 MPV 9.1 Immature Gran % (Auto) 1.200 H Neut % (Auto) 57.3 Lymph % (Auto) 30.4 Screven % (Auto) 7.2 Eos % (Auto) 3.0 Baso % (Auto) 0.9 Absolute Neuts (auto) 3.7 Absolute Lymphs (auto) 1.95 Nucleated RBC % 0 Sodium 133 Potassium 4.9 Chloride 98 Carbon Dioxide 24.4 Anion Gap 11 BUN 22 H Creatinine 1.21 H Estim Creat Clear Calc 58.94 Est GFR (MDRD) Non-Af 62 BUN/Creatinine Ratio 18.3 Glucose 94 Calcium 9.4 Total Bilirubin 0.69 AST 19 ALT 10 Alkaline Phosphatase 50 Total Protein 6.3 Albumin 4.4 Globulin 1.9 L Albumin/Globulin Ratio 2.3 Lipase 55 Urine Color Yellow Urine Clarity Sl. Cloudy Urine pH 6.5 Ur Specific [place] 1.015 Urine Protein 15 H Urine Glucose (UA) Normal Urine Ketones Negative Urine Occult Blood Negative Urine Nitrite Negative Urine Bilirubin Negative Urine Urobilinogen Normal Ur Leukocyte Esterase Negative Urine RBC 0-5 SEEN Urine WBC 0 SEEN Ur Squamous Epith Cells 0-5 SEEN Urine Bacteria 0 SEEN Urine Mucus 0 SEEN Radiography Diagnostic Testing: Clinical Impression(s) from Imaging Studies Acute Abdomen Series 01/31/25 12:10 IMPRESSION: Large amount of fecal material is seen in the colon. Reading Location: [place] [address] Discharge Plan Triage Chief Complaint: General Illness ED Provider: Gustabo Florian Dx/Rx/DC Orders Clinical Impression: Nausea and vomiting, Lightheadedness, Diaphoresis Instructions: ED Vomiting (Adult) Prescriptions: No Action ezetimibe [Zetia] 10 mg tablet 10 mg PO DAILY ramipril 10 mg capsule 10 mg PO DAILY docusate sodium [Colace] 100 mg capsule 100 mg PO BID carvedilol 12.5 MG tablet 12.5 mg PO BID 0RF insulin glargine 100 unit/mL (3 mL) insulin pen 8 unit subcut QHS PRN (Reason: SLIDING SCALE) insulin aspart U-100 100 unit/mL (3 mL) insulin pen 1 unit subcut QAC PRN (Reason: SLIDING SCALE) Patient Comments: PT DID 10 UNITS THIS MORNING 01/31/25 cholecalciferol (vitamin D3) [D3 DOTS] 50 mcg (2,000 unit) tablet 50 mcg PO DAILY acetaminophen 325 mg Tablet 325 mg PO Q4H PRN (Reason: Pain Or Fever) aspirin 81 MG tablet,chewable 162 mg PO DAILY Patient Comments: [facility] Rx Instructions: resume tomorrow metformin 500 mg tablet extended release 24 hr 2,000 mg PO DAILY Primary Care Provider: Evie Grewal Referrals: Evie Grewal MD [Primary Care Provider] - 3-5 Days if not improving Activity Restrictions/Additional Instructions: Return to the emergency department with inability to take medications, increasednausea and vomiting, abdominal pain, new or worsening symptoms. Print Language: Singaporean What to do if you have Problems For any increased pain, shortness of breath, bleeding, nausea or vomiting, chestpain, or any unexpected problems, contact your Primary Care Provider. Call [facility] ([phone]) or report to the closest Emergency Room. Call 911 if necessary. 01/31/25 1408 <Electronically signed by Gustabo Florian MD> Cosigner Signature (if applicable): CC: Dr. Evie Grewal MD ~ Signed [facility] Work Phone: [phone] Radiology Diagnostic study note [facility] Imaging Services [address] [place] [address] Acute Abdomen Inc Chest MR#: [id number] Acct: [id number] Name: KENDRICK BARRAZA Rep #: [id number] : 1950 M 74 From: Sameer Lee MD PCP: Dr. Evie Grewal MD Status: RE G ER Study:Acute Abdomen Inc Chest Date of Exam: 01/31/25 Exam# [id number] Ordering Dr: Gustabo Florian MD PROCEDURE: ACUTE ABDOMEN INC CHEST 01/31/2025 REASON FOR EXAM: NAUSEA AND VOMITING TECHNIQUE: ACUTE ABDOMEN INC CHEST COMPARISON: None FINDINGS: Hardware: EKG electrodes are seen. Heart: The heart size is normal. Lungs: Lungs are clear. Bowel gas: Large amount of fecal material is seen in the colon. Calcified splenic artery. Free air: No free air. Calcifications: No suspicious calcifications. Bones: There are degenerative changes of the spine. Status post left hip replacement. Other: Calcification of the vas deferens. This is seen in patient with diabetes. RAD/Acute Abdomen Inc Chest IMPRESSION: Large amount of fecal material is seen in the colon. Reading Location: [facility]1 CC: Dr. Gustabo Florian MD; Dr. Evie Grewal MD ~ Appliances Sample Maker: Signed [facility]06-13-2025 Instructions* Patient Instructions* Evie Grewal MD - 01/27/2025 4:35 PM EDT - Continue your current insulin regimen and test your blood sugar four times daily (before meals and at bedtime); keep these readings for your insurance documentation. - Call our office for refills if you run low on insulin, needles, or test strips before your next visit. - Check with your insurance about coverage and co-pay for a continuous glucose monitor (Dexcom or FreeStyle Danielle). If coverage is acceptable, let us know so we can send an order. - Drink water before your next lab draw to avoid appearing dehydrated. - You do not need a zero-salt diet; a light sprinkle of salt is fine when you increase your fluid intake. - We will monitor your urine hieaclx-pv-zgzdlupycv ratio on upcoming labs to ensure it stays in thereversible range (30s-40s). - For mild left ankle swelling, wear light, thin support socks that wick moisture during the day and elevate your legs when sitting; remove them at night to maintain circulation. - Continue checking your blood pressure at home; maintain your current regimen and share any concerning readings with us. - Your next appointments are scheduled for July and October; we will contact you soon to reschedule the October visit. documented in this encounter[facility] History of Present illness Narrative* Evie Grewal MD - 01/27/2025 3:20 PM EDT This note was created using [employer]. Subjective Kendrick Barraza is a 74 year old male. Patient presents with: Follow Up: diabetes and review labs Kendrick Barraza is a 74-year-old male with a history of diabetes mellitus, presenting for follow-up. Kendrick reports a recent HbA1c of 5.8%. He monitors his blood glucose levels four times daily, with readings typically in the 90-96 mg/dL range. He notes one episode of hypoglycemia with a blood glucose level of 55 mg/dL, which he attributes to taking an excessive dose of metoprolol and reduced food intake. He reports that he did not experience his usual symptoms of diaphoresis and imbalance during this episode, which he found surprising. He denies any other episodes of hypoglycemia. Kendrick also reports bilateral lower extremity edema, which he notes is more pronounced in the morning and improves with elevation. He denies any worsening of edema with heat exposure. He has been using compression stockings at home, which he reports provide some relief, but notes that elevation is more effective in reducing the swelling. He denies any skin breakdown. Recent laboratory results from 01/14/2023 show a blood glucose level of 113 mg/dL, BUN within normallimits, creatinine at 1.2 mg/dL, eGFR in the 60s, liver function tests within normal limits, sodiumslightly low, potassium within normal limits, LDL at 120 mg/dL, HDL in the 50s, triglycerides within normal limits, HbA1c at 5.8%, vitamin D within normal limits, PSA at 0.3-0.4 ng/mL, and a slightlyelevated foptgrk-ka-mqgypjngao ratio in the 30-40 mg/g range. Ray reports that he does not toleratestatins well and is not currently taking them. He also reports that he does not consume salt in hisdiet. PAST MEDICAL HISTORY Diagnosis Date CAD (coronary artery disease) Stents x 4 CHF (congestive heart failure) ([facility]) 12/22/2011 Class 1 obesity due to excess calories with body mass index (BMI) of 34.0 to 34.9 in adult 09/30/2017 CLL (chronic lymphocytic leukemia) ([facility]) 11/20/2011 cva 10/2011 left pontine infarct Diabetes mellitus without mention of complication Diabetes mellitus Diverticulosis of colon (without mention of hemorrhage) Elevated PSA 12/11/2014 HYPERLIPIDEMIA NEC/NOS 07/22/2006 HYPERTENSION NOS 07/15/2006 Obesity Pleural effusion 11/19/2011 Small lft pleural effusion Noted on chest x-ray [facility] On 11/13/11.blunting of the lft costophrenic andle. PVC (premature ventricular contraction) Uncontrolled type 2 diabetes mellitus with hyperglycemia ([facility]) 01/19/2019 Current Outpatient Medications Medication Sig insulin needles, DISPOSABLE, (PEN NEEDLE) 31 gauge x 12/30 Use one needle per dose. 4 per day. blood sugar diagnostic (BozukoUCH ULTRA TEST) test strip Test blood sugar(s) 4 times daily. Dx: E11.65, DM. Insulin: Yes (Meals and bedtime--4 injections) carvedilol (COREG) 12.5 mg tablet Take 1 tablet by mouth two times a day. ezetimibe (ZETIA) 10 mg tablet Take 1 tablet by mouth once daily. Cholecalciferol, Vitamin D3, 50 mcg (2,000 unit) cap Take 1 capsule by mouth once daily. insulin aspart U-100 (NOVOLOG FLEXPEN U-100 INSULIN) 100 unit/mL (3 mL) Inject 10 Units subcutaneously three times a day before meals. As directed when eats meals insulin glargine (LANTUS SOLOSTAR U-100 INSULIN) 100 unit/mL (3 mL) Inject 5 Units subcutaneously daily at bedtime. (Adjust as indicated) Needs 1 pen a month so please fill 3 pens per 3 months. Give 5 pens if not able to split the box metFORMIN ER (GLUCOPHAGE XR) 500 mg 24 hr tablet Take 4 tablets by mouth once daily. ramipril (ALTACE) 10 mg capsule Take 1 capsule by mouth once daily. docusate sodium (COLACE) 100 mg capsule Take 200 mg by mouth three times daily as needed for constipation. aspirin, enteric coated (ASPIRIN, ENTERIC COATED) 81 mg EC tablet Take 1 tablet by mouth twice daily. No current facility-administered medications for this visit. Review of Systems Objective BP 128/60 Pulse 89 Temp 37.4 C (99.4 F) (Temporal) Resp 16 Ht 170.2 cm (5' 7) Wt 98.2 kg(216 lb 7.9 oz) SpO2 99% BMI 33.91 kg/m Last 5 Encounter Wt Readings: Date: Wt: 01/27/2025 98.2 kg (216 lb 7.9 oz) 10/14/2024 101 kg (222 lb 10.6 oz) 07/29/2024 101.7 kg (224 lb 3.3 oz) 04/08/2024 96.6 kg (212 lb 15.4 oz) 12/04/2023 97.5 kg (215 lb) No waist measurement recorded Estimated body mass index is 33.91 kg/m as calculated from the following: Height as of this encounter: 170.2 cm (5' 7). Weight as of this encounter: 98.2 kg (216 lb 7.9 oz). Last 5 Encounter BP Readings: Date: BP: 01/27/2025 150/80 10/14/2024 156/79 07/29/2024 124/62 04/08/2024 146/80 12/04/2023 130/68 01/27/25 1512 01/27/25 1634 BP: 150/80 128/60 BP Site: Left Arm BP Position: Sitting BP Cuff Size: Large Adult Pulse: 89 Resp: 16 Temp: 37.4 C (99.4 F) TempSrc: Temporal SpO2: 99% Weight: 98.2 kg (216 lb 7.9 oz) Height: 170.2 cm (5' 7) Physical Exam Vitals reviewed. Constitutional: Appearance: Normal appearance. Eyes: Conjunctiva/sclera: Conjunctivae normal. Cardiovascular: Rate and Rhythm: Normal rate and regular rhythm. Heart sounds: Normal heart sounds. Pulmonary: Effort: Pulmonary effort is normal. Breath sounds: Normal breath sounds. Musculoskeletal: Right lower le+ Pitting Edema present. Left lower le+ Pitting Edema present. Skin: General: Skin is warm and dry. Neurological: General: No focal deficit present. Mental Status: He is alert and oriented to person, place, and time. Psychiatric: Mood and Affect: Mood normal. Behavior: Behavior normal. Thought Content: Thought content normal. Judgment: Judgment normal. Latest Ref Rng 11/13/2023 01/29/2024 07/12/2024 01/14/2025 WBC 3.70 - 11.00 k/uL 6.72 7.29 6.08 RBC 4.20 - 6.00 m/uL 5.34 5.53 5.65 Hemoglobin 13.0 - 17.0 g/dL 16.9 16.4 16.7 Hematocrit 39.0 - 51.0 % 50.0 48.9 49.6 MCV 80.0 - 100.0 fL 93.6 88.4 87.8 MCH 26.0 - 34.0 pg 31.6 29.7 29.6 MCHC 30.5 - 36.0 g/dL 33.8 33.5 33.7 RDW-CV 11.5 - 15.0 % 12.4 12.9 13.7 Platelet Count 150 - 400 k/uL 185 200 197 MPV 9.0 - 12.7 fL 9.5 9.2 9.4 Neut% % 50.8 Abs Neut (ANC) 1.45 - 7.50 k/uL 3.70 Lymph% % 35.8 Abs Lymph 1.00 - 4.00 k/uL 2.61 Screven% % 7.0 Abs Screven <0.87 k/uL 0.51 Eosin% % 3.8 Abs Eosin <0.46 k/uL 0.28 Baso% % 0.8 Abs Baso <0.11 k/uL 0.06 Immature Gran % % 1.8 IMMATURE GRANS (ABS) <0.10 k/uL 0.13 (H) NRBC /100 WBC 0.0 Absolute nRBC <0.01 k/uL <0.01 <0.01 <0.01 DTYPE Auto Protein, Total 6.3 - 8.0 g/dL 6.5 6.4 6.7 Albumin 3.9 - 4.9 g/dL 4.4 4.5 4.5 Calcium 8.5 - 10.2 mg/dL 9.4 9.6 9.8 Bilirubin, Total 0.2 - 1.3 mg/dL 0.5 0.5 0.6 Alkaline Phosphatase 38 - 113 U/L 44 54 55 AST 14 - 40 U/L 14 15 18 ALT 10 - 54 U/L 8 (L) 9 (L) 9 (L) Glucose 74 - 99 mg/dL 145 (H) 128 (H) 113 (H) BUN 9 - 24 mg/dL 23 25 (H) 23 Creatinine 0.73 - 1.22 mg/dL 1.12 1.24 (H) 1.23 (H) Sodium 136 - 144 mmol/L 138 134 (L) 134 (L) Potassium 3.7 - 5.1 mmol/L 4.7 5.1 5.0 Chloride 98 - 107 mmol/L 103 97 (L) 97 (L) CO2 22 - 30 mmol/L 26 26 23 Anion Gap 8 - 15 mmol/L 9 11 14 eGFR >=60 mL/min/1.73m 69 61 61 Cholesterol, Total <200 mg/dL 197 200 (H) 186 Triglyceride <150 mg/dL 89 96 88 HDL Cholesterol >39 mg/dL 53 53 50 Non HDL Cholesterol <130 mg/dL 144 (H) 147 (H) 136 (H) Fasting Time hrs 12 12 15 VLDL Cholesterol <30 mg/dL 18 19 15 TC:HDL Ratio <5.10 3.72 3.77 3.72 LDL Cholesterol, Calculated <100 mg/dL 126 (H) 128 (H) 120 (H) LDL:HDL Ratio <2.54 2.38 2.42 2.40 Creatinine, Ur Random (UCRR) 20.0 - 300.0 mg/dL 75.1 75.6 Albumin, Urine Random mg/L 23.7 33.2 Albumin/Creat Ratio <30 mg/g 32 (H) 44 (H) Hemoglobin A1C 4.3 - 5.6 % 6.2 (H) 5.8 (H) 5.8 (H) Estimated Average Glucose mg/dL 131 120 120 Vitamin D 25 Hydroxy 31.0 - 80.0 ng/mL 58.8 54.8 57.4 PSA Screening <2.60 ng/mL 0.33 0.43 Legend: (L) Low (H) High Assessment and Plan # Controlled type 2 diabetes mellitus with diabetic neuropathy, with long-term current use of insulin (HCC) (E11.40) # Microalbuminuria due to type 2 diabetes mellitus (HCC) (E11.29) - Hemoglobin A1c is 5.8%, indicating tight glycemic control. - Occasional hypoglycemic episodes noted, with one instance of blood glucose dropping to 55 mg/dL due to excessive metoprolol intake and reduced food consumption. - Blood glucose monitoring performed four times daily; discussed potential benefits of continuous glucose monitoring (CGM) systems such as Dexcom and PneumRxStyle Danielle. - Recent labs show slightly elevated cdkmccm-yh-wsiptvdfme ratio in the 30s to 40s range; advised increased hydration to improve renal function. - Continue current insulin regimen; ensure adequate documentation for insurance coverage of test strips. # Primary hypertension (I10) - Blood pressure readings stable, with recent measurements at 120/74 mmHg and 138/60 mmHg. - Continue current antihypertensive management. # Bilateral lower extremity edema (R60.0) - Mild edema observed, more pronounced on the left side. - Advised use of light compression socks and elevation of legs to reduce swelling. - Avoid wearing compression socks at night to ensure proper circulation. # Vitamin D deficiency (E55.9) - Recent lab results indicate adequate vitamin D levels. - Continue current vitamin D supplementation. # Mixed hyperlipidemia (E78.2) - LDL cholesterol at 120 mg/dL, HDL in the 50s, and triglycerides within normal range. - Intolerant to statins; continue current lipid management. Evie Grewal MD Recording using [employer] software for draft documentation of the visit was discussed with the patient/authorized sales representative rural [employer]; all questions welcomed and answered. Patient/authorized sales representative rural [employer] agreed to proceed documented in this encounter[facility] NoteHNO ID: [id number] Author: EVIE GREWAL MD Service: ? Author Type: Physician Type: Progress Notes Filed: 02/14/2025 20:30 Note Text: This note was created using [employer]. Subjective Kendrick Barraza is a 74 year old male. Patient presents with: Follow Up: diabetes and review labs Kendrick Barraza is a 74-year-old male with a history of diabetes mellitus, presenting for follow-up. Ray reports a recent HbA1c of 5.8%. He monitors his blood glucose levels four times daily, with readings typically in the 90-96 mg/dL range. He notes one episode of hypoglycemia with a blood glucose level of 55 mg/dL, which he attributes to taking an excessive dose of metoprolol and reduced food intake. He reports that he did not experience his usual symptoms of diaphoresis and imbalance during this episode, which he found surprising. He denies any other episodes of hypoglycemia. Kendrick also reports bilateral lower extremity edema, which he notes is more pronounced in the morning and improves with elevation. He denies any worsening of edema with heat exposure. He has been using compression stockings at home, which he reports provide some relief, but notes that elevation is more effective in reducing the swelling. He denies any skin breakdown. Recent laboratory results from 01/14/2023 show a blood glucose level of 113 mg/dL, BUN within normal limits, creatinine at 1.2 mg/dL, eGFR in the 60s, liver function tests within normal limits, sodium slightly low, potassium within normal limits, LDL at 120 mg/dL, HDL in the 50s, triglycerides within normal limits, HbA1c at 5.8%, vitamin D within normal limits, PSA at 0.3-0.4 ng/mL, and a slightly elevated xbgipss-wa-dicejijyfn ratio in the 30-40 mg/g range. Kendrick reports that he does not tolerate statins well and is not currently taking them. He also reports that he does not consume salt in his diet. PAST MEDICAL HISTORY Diagnosis Date CAD (coronary artery disease) Stents x 4 CHF (congestive heart failure) ([facility]) 12/22/2011 Class 1 obesity due to excess calories with body mass index (BMI) of 34.0 to 34.9 in adult 09/30/2017 CLL (chronic lymphocytic leukemia) ([facility]) 11/20/2011 cva 10/2011 left pontine infarct Diabetes mellitus without mention of complication Diabetes mellitus Diverticulosis of colon (without mention of hemorrhage) Elevated PSA 12/11/2014 HYPERLIPIDEMIA NEC/NOS 07/22/2006 HYPERTENSION NOS 07/15/2006 Obesity Pleural effusion 11/19/2011 Small lft pleural effusion Noted on chest x-ray [facility] On 11/13/11.blunting of the lft costophrenic andle. PVC (premature ventricular contraction) Uncontrolled type 2 diabetes mellitus with hyperglycemia ([facility]) 01/19/2019 Current Outpatient Medications Medication Sig insulin needles, DISPOSABLE, (PEN NEEDLE) 31 gauge x 12/30 Use one needle per dose. 4 per day. blood sugar diagnostic (BozukoUCH ULTRA TEST) test strip Test blood sugar(s) 4 times daily. Dx: E11.65, DM. Insulin: Yes (Meals and bedtime--4 injections) carvedilol (COREG) 12.5 mg tablet Take 1 tablet by mouth two times a day. ezetimibe (ZETIA) 10 mg tablet Take 1 tablet by mouth once daily. Cholecalciferol, Vitamin D3, 50 mcg (2,000 unit) cap Take 1 capsule by mouth once daily. insulin aspart U-100 (NOVOLOG FLEXPEN U-100 INSULIN) 100 unit/mL (3 mL) Inject 10 Units subcutaneously three times a day before meals. As directed when eats meals insulin glargine (LANTUS SOLOSTAR U-100 INSULIN) 100 unit/mL (3 mL) Inject 5 Units subcutaneously daily at bedtime. (Adjust as indicated) Needs 1 pen a month so please fill 3 pens per 3 months. Give 5 pens if not able to split the box metFORMIN ER (GLUCOPHAGE XR) 500 mg 24 hr tablet Take 4 tablets by mouth once daily. ramipril (ALTACE) 10 mg capsule Take 1 capsule by mouth once daily. docusate sodium (COLACE) 100 mg capsule Take 200 mg by mouth three times daily as needed for constipation. aspirin, enteric coated (ASPIRIN, ENTERIC COATED) 81 mg EC tablet Take 1 tablet by mouth twice daily. No current facility-administered medications for this visit. Review of Systems Objective BP 128/60 Pulse 89 Temp 37.4 ?C (99.4 ?F) (Temporal) Resp 16 Ht 170.2 cm (5' 7) Wt 98.2 kg (216 lb 7.9 oz) SpO2 99% BMI 33.91 kg/m? Last 5 Encounter Wt Readings: Date: Wt: 01/27/2025 98.2 kg (216 lb 7.9 oz) 10/14/2024 101 kg (222 lb 10.6 oz) 07/29/2024 101.7 kg (224 lb 3.3 oz) 04/08/2024 96.6 kg (212 lb 15.4 oz) 12/04/2023 97.5 kg (215 lb) No waist measurement recorded Estimated body mass index is 33.91 kg/m? as calculated from the following: Height as of this encounter: 170.2 cm (5' 7). Weight as of this encounter: 98.2 kg (216 lb 7.9 oz). Last 5 Encounter BP Readings: Date: BP: 01/27/2025 150/80 10/14/2024 156/79 07/29/2024 124/62 04/08/2024 146/80 12/04/2023 130/68 01/27/25 1512 01/27/25 1634 BP: 150/80 128/60 BP Site: Left Arm BP Position: Sitting BP Cuff Size: Large Adult Pu (more content not included)...[facility]06-10-2025 Telephone encounter Note* Telephone Encounter - Jazmin Kimbrough LPN - 01/24/2025 9:22 AM EDT Prescription Refill Information The patient has been identified by name and date of : Yes Caregiver verified no other encounters exist for this prescription request: Yes Caregiver confirmed with patient/requestor that no other refills are due, in the near future, with this provider at this time: Yes The last office visit in the department: 10/14/24 Does the patient have a future office visit with this provider/department: Yes 01/27/25 Requested Prescriptions Pending Prescriptions Disp Refills insulin needles, DISPOSABLE, (PEN NEEDLE) 31 gauge x 5/16 400 each 3 Sig: Use one needle per dose. 4 per day. Jazmin Kimbrough LPN January 24, 2025 9:25 AM [facility]06-10-2025 Miscellaneous Notes* Telephone Encounter - Jazmin Kimbrough LPN - 01/24/2025 9:22 AM EDT Prescription Refill Information The patient has been identified by name and date of : Yes Caregiver verified no other encounters exist for this prescription request: Yes Caregiver confirmed with patient/requestor that no other refills are due, in the near future, with this provider at this time: Yes The last office visit in the department: 10/14/24 Does the patient have a future office visit with this provider/department: Yes 01/27/25 Requested Prescriptions Pending Prescriptions Disp Refills insulin needles, DISPOSABLE, (PEN NEEDLE) 31 gauge x 5/16 400 each 3 Sig: Use one needle per dose. 4 per day. Jazmin Kimbrough LPN January 24, 2025 9:25 AM documented in [facility] encounter[facility] Telephone encounter Note * Telephone Encounter - Jazmin Kimbrough LPN - 01/24/2025 9:19 AM EDT Prescription Refill Information The patient has been identified by name and date of : Yes Caregiver verified no other encounters exist for this prescription request: Yes Caregiver confirmed with patient/requestor that no other refills are due, in the near future, with this provider at this time: Yes The last office visit in the department: 10/14/24 Does the patient have a future office visit with this provider/department: Yes 01/27/25 Requested Prescriptions Pending Prescriptions Disp Refills blood sugar diagnostic (ONETOUCH ULTRA TEST) test strip 300 strip 1 Sig: Test blood sugar(s) 4 times daily. Dx: E11.65, DM. Insulin: Yes (Meals and bedtime--4 injections) Jazmin Kimbrough LPN January 24, 2025 9:19 AM [facility]06-10-2025 Miscellaneous Notes* Telephone Encounter - Jazmin Kimbrough LPN - 01/24/2025 9:19 AM EDT Prescription Refill Information The patient has been identified by name and date of : Yes Caregiver verified no other encounters exist for this prescription request: Yes Caregiver confirmed with patient/requestor that no other refills are due, in the near future, with this provider at this time: Yes The last office visit in the department: 10/14/24 Does the patient have a future office visit with this provider/department: Yes 01/27/25 Requested Prescriptions Pending Prescriptions Disp Refills blood sugar diagnostic (ONETOUCH ULTRA TEST) test strip 300 strip 1 Sig: Test blood sugar(s) 4 times daily. Dx: E11.65, DM. Insulin: Yes (Meals and bedtime--4 injections) Jazmin Kimbrough LPN January 24, 2025 9:19 AM documented in [facility] Progress note* Result Encounter Note - Anna Hernandez APRN.CNS - 01/19/2025 11:11 AM EDT normal PSA 6/13 OV [facility]06-05-2025 Miscellaneous Notes* Result Encounter Note - Anna Hernandez APRN.CNS - 01/19/2025 11:11 AM EDT normal PSA 6/13 OV documented in this encounterSelect [facility]25 NoteHNO ID: [id number] Author: PAPA GAR, ? Service: ? Author Type: Physician Type: Progress Notes Filed: 12/02/2024 14:33 Note Text: Last saw pcp; 10/14/24 Subjective: Patient presents to clinic c/o painful toenails. They state that the nails are especially painful with shoe gear and pressure. Patient states that nails 1-5 b/l are painful. Patient admits to being diabetic. No other pedal complaints at this time. Patient states no change in medications or medical history since last visit. Objective: Patient presents to clinic ambulating in diabetic shoes Vasc: DP and PT pulses are nonpalpable bilateral. CFT is less than 5 seconds bilateral. Skin temperature is warm to cool proximal to distal bilateral. There is moderate edema or varicosities noted. Neuro: Protective sensation is decreased to the foot and toes when tested with the 5.07 SWM bilateral. Vibratory sensation is absent at the hallux IPJ bilateral. The hallux is downgoing bilateral. Derm: Nails 1-5 b/l are painful, discolored-yellow, thick, crumbly, dystrophic and with subungal debris. Skin is of normal turgor, texture and hair growth is absent bilateral. There are no hyperkeratosis, ulcerations, scars, verruca or other lesions noted. Ortho: Muscle strength is 5/5 for all pedal groups tested. Ankle joint DF is decreased with the knee extended with no pain or crepitus noted. 1st MPJ ROM is decreased bilateral. Assessment: (E11.42) Diabetic polyneuropathy associated with type 2 diabetes mellitus (HCC) (primary encounter diagnosis) (B35.1) Onychomycosis (M79.675) Pain in toe of left foot (M79.674) Pain in toe of right foot (I73.9) PAD (peripheral artery disease) Plan: Patient was seen and evaluated. Nails 1-5 bilateral were debrided in length and thickness. Small bleed to left 3rd toe. Band aide and topical antibiotic applied. Discussed possible removal of toenails. Patient would prefer to continue with periodic debridement. Patient was instructed on the continued importance of diabetic foot care along with proper diet and keeping their blood sugar under control to prevent complications. I stressed the importance of avoiding barefoot walking, wearing good shoes and inspection of feet. I discussed how this patient suffers from neuropathy and that it is important that she monitor for any open wounds. If he develops any issues, he is to contact our office immediately and we will have them seen. Continue with tubigrip for lower extremity swelling. Patient is to RTC in 3-4 months. Papa Gar [facility]04-18-2025 History of Present illness Narrative* Papa Gar - 12/02/2024 2:13 PM EDT Last saw pcp; 10/14/24 Subjective: Patient presents to clinic c/o painful toenails. They state that the nails are especially painful with shoe gear and pressure. Patient states that nails 1-5 b/l are painful. Patient admits to being diabetic. No other pedal complaints at this time. Patient states no change in medications or medical history since last visit. Objective: Patient presents to clinic ambulating in diabetic shoes Vasc: DP and PT pulses are nonpalpable bilateral. CFT is less than 5 seconds bilateral. Skin temperature is warm to cool proximal to distal bilateral. There is moderate edema or varicosities noted. Neuro: Protective sensation is decreased to the foot and toes when tested with the 5.07 SWM bilateral. Vibratory sensation is absent at the hallux IPJ bilateral. The hallux is downgoing bilateral. Derm: Nails 1-5 b/l are painful, discolored-yellow, thick, crumbly, dystrophic and with subungal debris. Skin is of normal turgor, texture and hair growth is absent bilateral. There are no hyperkeratosis, ulcerations, scars, verruca or other lesions noted. Ortho: Muscle strength is 5/5 for all pedal groups tested. Ankle joint DF is decreased with the knee extended with no pain or crepitus noted. 1st MPJ ROM is decreased bilateral. Assessment: (E11.42) Diabetic polyneuropathy associated with type 2 diabetes mellitus (HCC) (primary encounter diagnosis) (B35.1) Onychomycosis (M79.675) Pain in toe of left foot (M79.674) Pain in toe of right foot (I73.9) PAD (peripheral artery disease) Plan: Patient was seen and evaluated. Nails 1-5 bilateral were debrided in length and thickness. Small bleed to left 3rd toe. Band aide and topical antibiotic applied. Discussed possible removal of toenails. Patient would prefer to continue with periodic debridement. Patient was instructed on the continued importance of diabetic foot care along with proper diet andkeeping their blood sugar under control to prevent complications. I stressed the importance of avoiding barefoot walking, wearing good shoes and inspection of feet. I discussed how this patient suffers from neuropathy and that it is important that she monitor for any open wounds. If he develops anyissues, he is to contact our office immediately and we will have them seen. Continue with tubigrip for lower extremity swelling. Patient is to RTC in 3-4 months. Papa Gar DPM * Honey Haney LPN - 12/02/2024 2:12 PM EDT AMB ROOMING INTAKE FLOWSHEET DATA Patient presents with: Right Foot - Established Patient, Nail Care Left Foot - Established Patient, Nail Care Honey Haney LPN documented in this encounterSelect [facility] Instructions* Patient Instructions* Papa Gar - 12/02/2024 2:13 PM EDT Diabetes Foot Care Instructions When you have diabetes, proper foot care is very important. Poor foot care may lead to amputation of a foot or leg. As a person with diabetes, you are more vulnerable to foot problems, because diabetes can damage your nerves and reduce blood flow to your feet. Here are some diabetes foot care tips to follow: Wash and Dry Your Feet Daily Use mild soaps Use warm water Pat your skin dry; do not rub. Thoroughly dry your feet. After washing, use lotion on your feet to prevent cracking. Do not put lotion between your toes. Examine Your Feet Each Day Check the tops and bottoms of your feet. Have someone else look at your feet if you cannot see them. Check for dry, cracked skin. Look for blisters, cuts, scratches, or other sores. Check for redness, increased warmth, or tenderness when touching any area of your feet. Check for ingrown toenails, corns, and calluses. If you get a blister or sore from your shoes, do not pop it. Apply a bandage and wear a differentpair of shoes. Take Care of Your Toenails Cut toenails after bathing, when they are soft. Cut toenails straight across and smooth with a nail file. Avoid cutting into the corners of toes. Do not cut cuticles. If you have neuropathy (or decreased sensation in your feet) a passport support associate should always cut your toenails. Be Careful When Exercising Walk and exercise in comfortable shoes. Do not exercise when you have open sores on your feet. Protect Your Feet With Shoes and Socks Never go barefoot. Always protect your feet by wearing shoes or hard-soled slippers or footwear. Avoid shoes with high heels and pointed toes. Avoid shoes that expose your toes or heels (such as open-toed shoes or sandals). These types of shoes increase your risk for injury and potential infections. Try on new footwear with the type of socks you usually wear. Do not wear new shoes for more than an hour at a time. Change your socks daily. Look and feel inside your shoes before putting them on to make sure there are no foreign objects orrough areas. Avoid tight socks. Wear natural-fiber socks (cotton, wool, or a cotton-wool blend). Wear special shoes if your health care provider recommends them. Wear shoes/boots that will protect your feet from various weather conditions (cold, moisture, etc.). Make sure your shoes fit properly. If you have neuropathy (nerve damage), you may not notice that your shoes are too tight. Perform the footwear test described below. Footwear Test Use this simple test to see if your shoes fit correctly: Stand on a piece of paper. (Make sure you are standing and not sitting, because your foot changes shape when you stand.) Trace the outline of your foot. Trace the outline of your shoe. Compare the tracings: Is the shoe too narrow? Is your foot crammed into the shoe? The shoe should be at least 1/2 inch longer than your longest toe and as wide as your foot. Proper Shoe Choices The following types of shoes are best for people with diabetes Closed toes and heels Leather uppers without a seam inside At least 1/2 inch extra space at the end of your longest toe Inside of shoe should be soft with no rough areas Outer sole should be made of stiff material Shoes should be at least as wide as your feet Tips for Foot Care in Diabetes Don't wait to treat a minor foot problem if you have diabetes. Follow your health care provider's guidelines and first aid guidelines. Report foot injuries and infections to your health care provider immediately. Check water temperature with your elbow, not your foot. Do not use a heating pad on your feet. Do not cross your legs. Do not self-treat your corns, calluses, or other foot problems. Go to your health care provider or passport support associate to treat these conditions. documented in this encounterSelect [facility]25 NoteHNO ID: [id number] Author: HONEY HANEY LPN Service: ? Author Type: LICENSED NURSE Type: Progress Notes Filed: 12/02/2024 14:33 Note Text: AMB ROOMING INTAKE FLOWSHEET DATA Patient presents with: Right Foot - Established Patient, Nail Care Left Foot - Established Patient, Nail Care [facility]ALEX [facility] NoteHNO ID: [id number] Author: ANNA HERNANDEZ APRN.[employer]EE SHOP ATTENDANT Service: ? Author Type: Nurse Specialist Type: Progress Notes Filed: 10/14/2024 14:52 Note Text: Kendrick Barraza is a 73 year old male here for a Medicare wellness visit. Medicare Health Risk Assessment General Health Very good Exercise: Minutes/Day 30 min Exercise: Days/Week 4 days Alcohol: Daily Use Never Alcohol: Drinks/Day Patient does not drink Alcohol: 6 or more drinks Never Feel off balance No Concerns: Teeth/Dentures No Concerns: Sexual function No Troubled by feelings None of the above Frequency: Eating healthy diet Several days ADLs requiring help None of the above Safety precautions in home/vehicle Yes Smoke, vape, chews tobacco No Difficulty hearing No Difficulty seeing No Current Providers Specialists: I have reviewed specialist-related care of the patient in the medical record. Dr Fairbanks ophthalmology [facility], reports no recent echocardiogram or EKG. Dr. Vargas urology Medical/Family history review Reviewed and updated problem list, medical/surgical/family/social history, medications, and allergies. Opioid use review Opioid Medications (last 90 days) No data to display Anxiety/Depression screening PHQ-2 Score: 0 (Lower risk for depression) Recommendation: no further intervention at this time Cognitive screening Mini Cog Score: 5 Cognitive screening reviewed and No further action needed (score 3-5). Functional Observation Was the patient's Timed Up AND Go test unsteady or >= 12 seconds? No Advance Care Planning Surrogate decision maker and/or advance care plan documented Patient's last HgA1C . He notes holding insulin at times. Blood sugars generally 100 or greater. Defers stopping Lantus insulin at this time. Hemoglobin A1C Date Value 07/12/2024 5.8 % 11/13/2023 6.2 % 06/11/2023 6.1 04/13/2021 6.5 % 12/08/2020 7.0 % Hemoglobin A1C (POCT) (%) Date Value 07/26/2021 6.4 ) Measurements BP 156/79 Pulse 92 Resp 16 Ht 171.5 cm (5' 7.52) Wt 101 kg (222 lb 10.6 oz) BMI 34.34 kg/m? Follows with ophthalmology regularly Assessment/Plan Medicare annual wellness visit, subsequent (Z00.00) - Counseled on healthy diet and regular exercise - Fall avoidance information provided - Personalized prevention plan provided He notes to walk up to his visit today caused him to feel tired. Endorse completing echo or EKG in the near future if not completed by cardiology at his next visit for recheck. Consider stopping insulin. Deferred for now. Anna Hernandez APRN.[facility]02-28-2025 History of Present illness Narrative* Anna Hernandez APRN.[employer]EE SHOP ATTENDANT - 10/14/2024 2:16 PM EST Images from the original note were not included. Kendrick Barraza is a 73 year old male here for a Medicare wellness visit. Medicare Health Risk Assessment General Health Very good Exercise: Minutes/Day 30 min Exercise: Days/Week 4 days Alcohol: Daily Use Never Alcohol: Drinks/Day Patient does not drink Alcohol: 6 or more drinks Never Feel off balance No Concerns: Teeth/Dentures No Concerns: Sexual function No Troubled by feelings None of the above Frequency: Eating healthy diet Several days ADLs requiring help None of the above Safety precautions in home/vehicle Yes Smoke, vape, chews tobacco No Difficulty hearing No Difficulty seeing No Current Providers Specialists: I have reviewed specialist-related care of the patient in the medical record. Dr Fairbanks ophthalmology [facility], reports no recent echocardiogram or EKG. Dr. Vargas urology Medical/Family history review Reviewed and updated problem list, medical/surgical/family/social history, medications, and allergies. Opioid use review Opioid Medications (last 90 days) No data to display Anxiety/Depression screening PHQ-2 Score: 0 (Lower risk for depression) Recommendation: no further intervention at this time Cognitive screening Mini Cog Score: 5 Cognitive screening reviewed and No further action needed (score 3-5). Functional Observation Was the patient's Timed Up & Go test unsteady or >= 12 seconds? No Advance Care Planning Surrogate decision maker and/or advance care plan documented Patient's last HgA1C . He notes holding insulin at times. Blood sugars generally 100 or greater. Defers stopping Lantus insulin at this time. Hemoglobin A1C Date Value 07/12/2024 5.8 % 11/13/2023 6.2 % 06/11/2023 6.1 04/13/2021 6.5 % 12/08/2020 7.0 % Hemoglobin A1C (POCT) (%) Date Value 07/26/2021 6.4 ) Measurements BP 156/79 Pulse 92 Resp 16 Ht 171.5 cm (5' 7.52) Wt 101 kg (222 lb 10.6 oz) BMI 34.34 kg/m Follows with ophthalmology regularly Assessment/Plan Medicare annual wellness visit, subsequent (Z00.00) - Counseled on healthy diet and regular exercise - Fall avoidance information provided - Personalized prevention plan provided He notes to walk up to his visit today caused him to feel tired. Endorse completing echo or EKG in the near future if not completed by cardiology at his next visit for recheck. Consider stopping insulin. Deferred for now. Anna Hernandez APRN.CNS documented in this encounterSelect [facility] Instructions* Patient Instructions* Anna Hernandez APRN.CNS - 10/14/2024 2:16 PM EST Screening schedule The following prevention plan is recommended: Shingrix Vaccine(1 of 2) Never done RSV Vaccine(1 - Risk 60-74 years 1-dose series) Never done DTaP,Tdap,Td Vaccine(2 - Td or Tdap) due on 05/11/2022 Advance Directive Discussion due on 08/17/2024 WHAT YOU CAN DO TO PREVENT FALLS Many falls can be prevented. By making some changes, you can lower your chances of falling. Four things YOU can do to prevent falls for you* and your caregiver 1. Begin a regular exercise program Exercise is one of the most important ways to lower your chances of falling. It makes you stronger and helps you feel better. Exercises that improve balance and coordination (like Junior Chi) are the most helpful. Lack of exercise leads to weakness and increases your chances of falling. Ask your doctor or health care provider about the best type of exercise program for you. 2. Have your health care provider review your medicines Have your doctor or pharmacist review all the medicines you take, even [id number] medicines. As you get older, the way medicines work in your body can change. Some medicines, or combinations of medicines, can make you sleepy or dizzy andcan cause you to fall. 3. Have your vision checked Have your eyes checked by an eye doctor at least once a year. You may be wearing the wrong glasses or have a condition like glaucoma or cataracts that limits your vision. Poor vision can increase your chances of falling. 4. Make your home safer About half of all falls happen at home. To make your home safer: Remove things you can trip over (like papers, books, clothes, and shoes) from stairs and places where you walk. Remove small throw rugs or use double-sided tape to keep the rugs from slipping. Keep items you use often in cabinets you can reach easily without using a step stool. Have grab bars put in next to your toilet and in the tub or shower. Use non-slip mats in the bathtub and on shower floors. Improve the lighting in your home. As you get older, you need brighter lights to see well. Hang light-weight curtains or shades to reduce glare. Have handrails and lights put in on all staircases. Wear shoes both inside and outside the house. Avoid going barefoot or wearing slippers. For more information, contact: Centers for Disease Control and Prevention www.cdc.gov/injury * This information may not apply if you have certain medical conditions. documented in this encounterSelect [facility]25 Telephone encounter Note * Telephone Encounter - Sheryl Rothman LPN - 09/12/2024 9:26 AM EST Form faxed back 09/09/24 [facility]01-27-2025 Miscellaneous Notes* Telephone Encounter - Sheryl Rothman LPN - 09/12/2024 9:26 AM EST Form faxed back 09/09/24 * Telephone Encounter - Evie Grewal MD - 09/09/2024 7:01 PM EST Form completed/signed Verify faxed back * Telephone Encounter - Belkys Up LPN - 09/07/2024 5:37 PM EST Provider out of office at this time, will address AUGIE. Belkys Up LPN * Telephone Encounter - Bay Jarrett RN - 09/07/2024 2:[address] Mccann phoned asking if pcp received a packet they faxed on the and the . Confirmed she is using the correct fax number. Reports patient saw pcp and also saw Dr. Gar, and Dr. Gar sent them an Rx for diabetic shoes. They need the ov notes with pcp faxed them them, along with the certificate of medical necessity signed by pcp that is also in the packet they faxed, so that they can get patient his diabetic shoes. Please fax these items to Dr. Mccann at fax # [phone] documented in this encounterSelect Medical [facility] Telephone encounter Note * Telephone Encounter - Evie Grewal MD - 09/09/2024 7:01 PM EST Form completed/signed Verify faxed back [facility]01-22-2025 Telephone encounter Note* Telephone Encounter - Belkys pU LPN - 09/07/2024 5:37 PM EST Provider out of office at this time, will address AUGIE. Belkys Up LPN [facility]01-22-2025 Telephone encounter Note* Telephone Encounter - Bay Jarrett, RN - 09/07/2024 2:[address] Mccann phoned asking if pcp received a packet they faxed on the and the . Confirmed she is using the correct fax number. Reports patient saw pcp and also saw Dr. Gar, and Dr. Gar sent them an Rx for diabetic shoes. They need the ov notes with pcp faxed them them, along with the certificate of medical necessity signed by pcp that is also in the packet they faxed, so that they can get patient his diabetic shoes. Please fax these items to Dr. Mccann at fax # [phone] [facility]01-22-2025 Telephone encounter Note* Telephone Encounter - Lizzette Mcwilliams LPN - 09/07/2024 11:39 AM EST Form completed & faxed 08/30/2024. Lizzette Mcwilliams LPN [facility]01-22-2025 Miscellaneous Notes* Telephone Encounter - Lizzette Mcwilliams LPN - 09/07/2024 11:39 AM EST Form completed & faxed 08/30/2024. Lizzette Mcwilliams LPN * Telephone Encounter - Jazmin Kimbrough LPN - 08/30/2024 2:42 PM EST Form printed and given to Anna Hernandez nurse. * Telephone Encounter - Lauren Latif LPN - 08/29/2024 10:25 AM EST Last OV: 08/22/24 with MICHELLE Duron. Pt calls to report that [facility] said they have rx for One Touch Ultra testing strips (08/22/24) but needs more information from dr's office. Spoke to the pharmacist at [facility] who reports they have faxed a form that has to be filled out by provider. Pharmacist re-faxed form today. Pt notified of form and need for provider to fill it out before he can get his rx for test strips. Lauren Latif LPN [facility] NoteHNO ID: [id number] Author: PAPA GAR, ? Service: ? Author Type: Physician Type: Progress Notes Filed: 09/05/2024 11:50 Note Text: Last saw pcp: 07/29/24 Subjective: Patient presents to clinic c/o painful toenails. They state that the nails are especially painful with shoe gear and pressure. Patient states that nails 1-5 b/l are painful. Patient admits to being diabetic. No other pedal complaints at this time. Patient states no change in medications or medical history since last visit. Objective: Patient presents to clinic ambulating in diabetic shoe Vasc: DP and PT pulses are nonpalpable bilateral. CFT is less than 5 seconds bilateral. Skin temperature is warm to cool proximal to distal bilateral. There is mild edema or varicosities noted. Neuro: Protective sensation is absent to the foot and toes when tested with the 5.07 SWM bilateral. Vibratory sensation is absent at the hallux IPJ bilateral. The hallux is downgoing bilateral. Derm: Nails 1-5 b/l are painful, discolored-yellow, thick, crumbly, dystrophic and with subungal debris. Skin is of normal turgor, texture and hair growth is absent bilateral. There are no hyperkeratosis, ulcerations, scars, verruca or other lesions noted. Ortho: Muscle strength is 5/5 for all pedal groups tested. Ankle joint DF is decreased with the knee extended with no pain or crepitus noted. 1st MPJ ROM is decreased bilateral. Assessment: (E11.42) Diabetic polyneuropathy associated with type 2 diabetes mellitus (HCC) (primary encounter diagnosis) (B35.1) Onychomycosis (M79.675) Pain in toe of left foot (M79.674) Pain in toe of right foot (I87.2) Venous insufficiency Plan: Patient was seen and evaluated. Nails 1-5 bilateral were debrided in length and thickness. Patient was instructed on the continued importance of diabetic foot care along with proper diet and keeping their blood sugar under control to prevent complications. Stressed the importance of avoiding barefoot walking, wearing good shoes and inspection of feet. Recommend continued use of compression stockings for lower extremity edema Patient is to RTC in 3-4 months. Papa Gar [facility]01-17-2025 History of Present illness Narrative* Papa Gar - 09/02/2024 3:13 PM EST Last saw pcp: 07/29/24 Subjective: Patient presents to clinic c/o painful toenails. They state that the nails are especially painful with shoe gear and pressure. Patient states that nails 1-5 b/l are painful. Patient admits to being diabetic. No other pedal complaints at this time. Patient states no change in medications or medical history since last visit. Objective: Patient presents to clinic ambulating in diabetic shoe Vasc: DP and PT pulses are nonpalpable bilateral. CFT is less than 5 seconds bilateral. Skin temperature is warm to cool proximal to distal bilateral. There is mild edema or varicosities noted. Neuro: Protective sensation is absent to the foot and toes when tested with the 5.07 SWM bilateral.Vibratory sensation is absent at the hallux IPJ bilateral. The hallux is downgoing bilateral. Derm: Nails 1-5 b/l are painful, discolored-yellow, thick, crumbly, dystrophic and with subungal debris. Skin is of normal turgor, texture and hair growth is absent bilateral. There are no hyperkeratosis, ulcerations, scars, verruca or other lesions noted. Ortho: Muscle strength is 5/5 for all pedal groups tested. Ankle joint DF is decreased with the knee extended with no pain or crepitus noted. 1st MPJ ROM is decreased bilateral. Assessment: (E11.42) Diabetic polyneuropathy associated with type 2 diabetes mellitus (HCC) (primary encounter diagnosis) (B35.1) Onychomycosis (M79.675) Pain in toe of left foot (M79.674) Pain in toe of right foot (I87.2) Venous insufficiency Plan: Patient was seen and evaluated. Nails 1-5 bilateral were debrided in length and thickness. Patient was instructed on the continued importance of diabetic foot care along with proper diet and keeping their blood sugar under control to prevent complications. Stressed the importance of avoiding barefoot walking, wearing good shoes and inspection of feet. Recommend continued use of compression stockings for lower extremity edema Patient is to RTC in 3-4 months. Papa Gar DPM documented in this encounterSelect [facility] [place] Instructions* Patient Instructions* Papa Gar - 09/02/2024 3:13 PM EST Diabetes Foot Care Instructions When you have diabetes, proper foot care is very important. Poor foot care may lead to amputation of a foot or leg. As a person with diabetes, you are more vulnerable to foot problems, because diabetes can damage your nerves and reduce blood flow to your feet. Here are some diabetes foot care tips to follow: Wash and Dry Your Feet Daily Use mild soaps Use warm water Pat your skin dry; do not rub. Thoroughly dry your feet. After washing, use lotion on your feet to prevent cracking. Do not put lotion between your toes. Examine Your Feet Each Day Check the tops and bottoms of your feet. Have someone else look at your feet if you cannot see them. Check for dry, cracked skin. Look for blisters, cuts, scratches, or other sores. Check for redness, increased warmth, or tenderness when touching any area of your feet. Check for ingrown toenails, corns, and calluses. If you get a blister or sore from your shoes, do not pop it. Apply a bandage and wear a differentpair of shoes. Take Care of Your Toenails Cut toenails after bathing, when they are soft. Cut toenails straight across and smooth with a nail file. Avoid cutting into the corners of toes. Do not cut cuticles. If you have neuropathy (or decreased sensation in your feet) a passport support associate should always cut your toenails. Be Careful When Exercising Walk and exercise in comfortable shoes. Do not exercise when you have open sores on your feet. Protect Your Feet With Shoes and Socks Never go barefoot. Always protect your feet by wearing shoes or hard-soled slippers or footwear. Avoid shoes with high heels and pointed toes. Avoid shoes that expose your toes or heels (such as open-toed shoes or sandals). These types of shoes increase your risk for injury and potential infections. Try on new footwear with the type of socks you usually wear. Do not wear new shoes for more than an hour at a time. Change your socks daily. Look and feel inside your shoes before putting them on to make sure there are no foreign objects orrough areas. Avoid tight socks. Wear natural-fiber socks (cotton, wool, or a cotton-wool blend). Wear special shoes if your health care provider recommends them. Wear shoes/boots that will protect your feet from various weather conditions (cold, moisture, etc.). Make sure your shoes fit properly. If you have neuropathy (nerve damage), you may not notice that your shoes are too tight. Perform the footwear test described below. Footwear Test Use this simple test to see if your shoes fit correctly: Stand on a piece of paper. (Make sure you are standing and not sitting, because your foot changes shape when you stand.) Trace the outline of your foot. Trace the outline of your shoe. Compare the tracings: Is the shoe too narrow? Is your foot crammed into the shoe? The shoe should be at least 1/2 inch longer than your longest toe and as wide as your foot. Proper Shoe Choices The following types of shoes are best for people with diabetes Closed toes and heels Leather uppers without a seam inside At least 1/2 inch extra space at the end of your longest toe Inside of shoe should be soft with no rough areas Outer sole should be made of stiff material Shoes should be at least as wide as your feet Tips for Foot Care in Diabetes Don't wait to treat a minor foot problem if you have diabetes. Follow your health care provider's guidelines and first aid guidelines. Report foot injuries and infections to your health care provider immediately. Check water temperature with your elbow, not your foot. Do not use a heating pad on your feet. Do not cross your legs. Do not self-treat your corns, calluses, or other foot problems. Go to your health care provider or passport support associate to treat these conditions. documented in this encounterSelect [facility] [place]-14-2025 Telephone encounter Note * Telephone Encounter - Jazmin Kimbrough LPN - 08/30/2024 2:42 PM EST Form printed and given to Anna Hernandez nurse. [facility]01-13-2025 Telephone encounter Note* Telephone Encounter - Lauren Latif LPN - 08/29/2024 10:25 AM EST Last OV: 08/22/24 with MICHELLE Duron. Pt calls to report that [facility] said they have rx for One Touch Ultra testing strips (08/22/24) but needs more information from 's office. Spoke to the pharmacist at [facility] who reports they have faxed a form that has to be filled out by provider. Pharmacist re-faxed form today. Pt notified of form and need for provider to fill it out before he can get his rx for test strips. Lauren Latif LPN [facility]01-06-2025 Telephone encounter Note* Telephone Encounter - Jazmin Kimbrough LPN - 08/22/2024 11:03 AM EST Prescription Refill Information The patient has been identified by name and date of : Yes Caregiver verified no other encounters exist for this prescription request: Yes Caregiver confirmed with patient/requestor that no other refills are due, in the near future, with this provider at this time: Yes The last office visit in the department: 07/29/24 Does the patient have a future office visit with this provider/department: Yes 09/30/24 Requested Prescriptions Pending Prescriptions Disp Refills blood sugar diagnostic (ONETOUCH ULTRA TEST) test strip 300 Strip 1 Sig: Test blood sugar(s) 4 times daily. Dx: E11.65, DM. Insulin: Yes (Meals and bedtime--4 injections) Jazmin Kimbrough LPN August 22, 2024 11:04 AM ' [facility]01-06-2025 Miscellaneous Notes* Telephone Encounter - Jazmin Kimbrough LPN - 08/22/2024 11:03 AM EST Prescription Refill Information The patient has been identified by name and date of : Yes Caregiver verified no other encounters exist for this prescription request: Yes Caregiver confirmed with patient/requestor that no other refills are due, in the near future, with this provider at this time: Yes The last office visit in the department: 07/29/24 Does the patient have a future office visit with this provider/department: Yes 09/30/24 Requested Prescriptions Pending Prescriptions Disp Refills blood sugar diagnostic (ONETOUCH ULTRA TEST) test strip 300 Strip 1 Sig: Test blood sugar(s) 4 times daily. Dx: E11.65, DM. Insulin: Yes (Meals and bedtime--4 injections) Jazmin Kimbrough LPN August 22, 2024 11:04 AM ' documented in this encounterSelect Medical [facility] [place]12-13-2024 Instructions* Patient Instructions* Evie Grewla MD - 07/29/2024 5:34 PM EST - Continue taking Novolog 10 units with meals and Lantus 5 units at bedtime as needed. Adjust dosages based on blood sugar readings, and hold Lantus if blood sugar drops below 70. - Refill for Carvedilol and Zetia sent to [facility]. - Continue taking [id number] Vitamin D 2,000 units daily. - Stay hydrated, especially before lab tests, to maintain normal kidney function. - Consider wearing compression socks to manage leg swelling. - You have appointments scheeduled through July. - Lab tests scheduled for January, including lipids, A1c, metabolic panel, blood counts, and urine test (UACR). documented in this encounterSelect Medical [facility] [place]12-13-2024 NoteHNO ID: [id number] Author: EVIE GREWAL MD Service: ? Author Type: Physician Type: Progress Notes Filed: 07/29/2024 17:35 Note Text: This note was created using [employer]. Subjective Kendrick Barraza is a 73 year old male. Patient presents with: Follow Up: DM, and med refills SUBJECTIVE: Kendrick Barraza is a 73 year old year old gentleman here today for follow up appointment for review of medical conditions. Kendrick Barraza is a 73-year-old male with a history of diabetes mellitus, presenting for a 4-month follow-up. Kendrick reports his most recent HbA1c is 5.8%. He denies experiencing hypoglycemia, though he notes his blood glucose levels occasionally drop into the 70s without associated symptoms. He is currently taking Novolog 10 units with meals and Lantus 5 units at bedtime, though he sometimes skips doses based on his blood glucose readings. He reports that his current regimen is effective in managing his blood glucose levels, and he occasionally uses Lantus to correct postprandial hyperglycemia. He also notes that there are some meals where he does not require Novolog. Kendrick reports a gradual weight increase from 206 lbs in July 2023 to 224 lbs currently. He is also taking metformin, carvedilol, Zetia, and mzku-[id number] vitamin D 2,000 units daily. He has a history of statin intolerance, which caused myalgia. He is up to date on his PSA screening and is following with urology. He has had a recent eye exam, during which his machine setter automatic reportedly noted no signs of diabetic retinopathy. Ray declines further COVID-19 vaccinations and flu shots, citing adverse reactions. He also declines the shingles and RSV vaccines. He denies any swelling.; PAST MEDICAL HISTORY Diagnosis Date CAD (coronary artery disease) Stents x 4 CHF (congestive heart failure) ([facility]) 12/22/2011 Class 1 obesity due to excess calories with body mass index (BMI) of 34.0 to 34.9 in adult 09/30/2017 CLL (chronic lymphocytic leukemia) ([facility]) 11/20/2011 cva 10/2011 left pontine infarct Diabetes mellitus without mention of complication Diabetes mellitus Diverticulosis of colon (without mention of hemorrhage) Elevated PSA 12/11/2014 HYPERLIPIDEMIA NEC/NOS 07/22/2006 HYPERTENSION NOS 07/15/2006 Obesity Pleural effusion 11/19/2011 Small lft pleural effusion Noted on chest x-ray [facility] On 11/13/11.blunting of the lft costophrenic andle. PVC (premature ventricular contraction) Uncontrolled type 2 diabetes mellitus with hyperglycemia ([facility]) 01/19/2019 Current Outpatient Medications Medication Sig insulin aspart U-100 (NOVOLOG FLEXPEN U-100 INSULIN) 100 unit/mL (3 mL) Inject 10 Units subcutaneously three times a day before meals. As directed when eats meals insulin glargine (LANTUS SOLOSTAR U-100 INSULIN) 100 unit/mL (3 mL) Inject 5 Units subcutaneously daily at bedtime. (Adjust as indicated) Needs 1 pen a month so please fill 3 pens per 3 months. Give 5 pens if not able to split the box metFORMIN ER (GLUCOPHAGE XR) 500 mg 24 hr tablet Take 4 tablets by mouth once daily. ramipril (ALTACE) 10 mg capsule Take 1 capsule by mouth once daily. blood sugar diagnostic ([employer] ULTRA TEST) test strip Test blood sugar(s) 4 times daily. Dx: E11.65, DM. Insulin: Yes (Meals and bedtime--4 injections) ezetimibe (ZETIA) 10 mg tablet Take 1 tablet by mouth once daily. carvedilol (COREG) 12.5 mg tablet Take 1 tablet by mouth two times a day. docusate sodium (COLACE) 100 mg capsule Take 200 mg by mouth three times daily as needed for constipation. aspirin, enteric coated (ASPIRIN, ENTERIC COATED) 81 mg EC tablet Take 1 tablet by mouth twice daily. ascorbic acid, vitamin C, (VITAMIN C) 500 mg tablet Take 1 tablet by mouth twice daily with meals for 26 doses. Cholecalciferol, Vitamin D3, 125 mcg (5,000 unit) cap Take 1 capsule by mouth every other day. May switch to 2000 units daily insulin needles, DISPOSABLE, (PEN NEEDLE) 31 gauge x 5/16 ndle Use one needle per dose. 4 per day. No current facility-administered medications for this visit. Review of Systems Objective BP 124/62 (BP Site: Left Arm, BP Position: Sitting, BP Cuff Size: Large Adult) Pulse 89 Resp 16 Ht 171.5 cm (5' 7.5) Wt 101.7 kg (224 lb 3.3 oz) SpO2 98% BMI 34.60 kg/m? Physical Exam Vitals reviewed. Constitutional: Appearance: Normal appearance. Eyes: Conjunctiva/sclera: Conjunctivae normal. Cardiovascular: Rate and Rhythm: Normal rate and regular rhythm. Heart sounds: Normal heart sounds. Pulmonary: Effort: Pulmonary effort is normal. Breath sounds: Normal breath sounds. Musculoskeletal: Right lower leg: No edema. Left lower le+ Edema present. Skin: General: Skin is warm and dry. Neurological: General: No focal deficit present. Mental Status: He is alert and oriented to person, place, and time. Psychiatric: Mood and Affect: Mood normal. Behavior: Behavior normal. Thought Content: Thought (more content not included)...[facility]12-13-2024 History of Present illness Narrative* Evie Grewal MD - 07/29/2024 4:52 PM EST This note was created using [employer]. Subjective Kendrick Barraza is a 73 year old male. Patient presents with: Follow Up: DM, and med refills SUBJECTIVE: Kendrick Barraza is a 73 year old year old gentleman here today for follow up appointment for review ofmedical conditions. Kendrick Barraza is a 73-year-old male with a history of diabetes mellitus, presenting for a 4-month follow-up. Kendrick reports his most recent HbA1c is 5.8%. He denies experiencing hypoglycemia, though he notes hisblood glucose levels occasionally drop into the 70s without associated symptoms. He is currently taking Novolog 10 units with meals and Lantus 5 units at bedtime, though he sometimes skips doses based on his blood glucose readings. He reports that his current regimen is effective in managing his blood glucose levels, and he occasionally uses Lantus to correct postprandial hyperglycemia. He also notes that there are some meals where he does not require Novolog. Kendrick reports a gradual weight increase from 206 lbs in July 2023 to 224 lbs currently. He is also taking metformin, carvedilol, Zetia, and mafo-vnk-vhrghvs vitamin D 2,000 units daily. He has a history of statin intolerance, which caused myalgia. He is up to date on his PSA screening and is following with urology. He has had a recent eye exam, during which his machine setter automatic reportedly noted no signs of diabetic retinopathy. Kendrick declines further COVID-19 vaccinations and flu shots, citing adverse reactions. He also declines the shingles and RSV vaccines. He denies any swelling.; PAST MEDICAL HISTORY Diagnosis Date CAD (coronary artery disease) Stents x 4 CHF (congestive heart failure) ([facility]) 12/22/2011 Class 1 obesity due to excess calories with body mass index (BMI) of 34.0 to 34.9 in adult 09/30/2017 CLL (chronic lymphocytic leukemia) ([facility]) 11/20/2011 cva 10/2011 left pontine infarct Diabetes mellitus without mention of complication Diabetes mellitus Diverticulosis of colon (without mention of hemorrhage) Elevated PSA 12/11/2014 HYPERLIPIDEMIA NEC/NOS 07/22/2006 HYPERTENSION NOS 07/15/2006 Obesity Pleural effusion 11/19/2011 Small lft pleural effusion Noted on chest x-ray [facility] On 11/13/11.blunting of the lft costophrenic andle. PVC (premature ventricular contraction) Uncontrolled type 2 diabetes mellitus with hyperglycemia ([facility]) 01/19/2019 Current Outpatient Medications Medication Sig insulin aspart U-100 (NOVOLOG FLEXPEN U-100 INSULIN) 100 unit/mL (3 mL) Inject 10 Units subcutaneously three times a day before meals. As directed when eats meals insulin glargine (LANTUS SOLOSTAR U-100 INSULIN) 100 unit/mL (3 mL) Inject 5 Units subcutaneously daily at bedtime. (Adjust as indicated) Needs 1 pen a month so please fill 3 pens per 3 months. Give 5 pens if not able to split the box metFORMIN ER (GLUCOPHAGE XR) 500 mg 24 hr tablet Take 4 tablets by mouth once daily. ramipril (ALTACE) 10 mg capsule Take 1 capsule by mouth once daily. blood sugar diagnostic (ONETOUCH ULTRA TEST) test strip Test blood sugar(s) 4 times daily. Dx: E11.65, DM. Insulin: Yes (Meals and bedtime--4 injections) ezetimibe (ZETIA) 10 mg tablet Take 1 tablet by mouth once daily. carvedilol (COREG) 12.5 mg tablet Take 1 tablet by mouth two times a day. docusate sodium (COLACE) 100 mg capsule Take 200 mg by mouth three times daily as needed for constipation. aspirin, enteric coated (ASPIRIN, ENTERIC COATED) 81 mg EC tablet Take 1 tablet by mouth twice daily. ascorbic acid, vitamin C, (VITAMIN C) 500 mg tablet Take 1 tablet by mouth twice daily with meals for 26 doses. Cholecalciferol, Vitamin D3, 125 mcg (5,000 unit) cap Take 1 capsule by mouth every other day. May switch to 2000 units daily insulin needles, DISPOSABLE, (PEN NEEDLE) 31 gauge x 5/16 ndle Use one needle per dose. 4 per day. No current facility-administered medications for this visit. Review of Systems Objective BP 124/62 (BP Site: Left Arm, BP Position: Sitting, BP Cuff Size: Large Adult) Pulse 89 Resp 16 Ht 171.5 cm (5' 7.5) Wt 101.7 kg (224 lb 3.3 oz) SpO2 98% BMI 34.60 kg/m Physical Exam Vitals reviewed. Constitutional: Appearance: Normal appearance. Eyes: Conjunctiva/sclera: Conjunctivae normal. Cardiovascular: Rate and Rhythm: Normal rate and regular rhythm. Heart sounds: Normal heart sounds. Pulmonary: Effort: Pulmonary effort is normal. Breath sounds: Normal breath sounds. Musculoskeletal: Right lower leg: No edema. Left lower le+ Edema present. Skin: General: Skin is warm and dry. Neurological: General: No focal deficit present. Mental Status: He is alert and oriented to person, place, and time. Psychiatric: Mood and Affect: Mood normal. Behavior: Behavior normal. Thought Content: Thought content normal. Judgment: Judgment normal. Latest Ref Rng 07/01/2023 11/13/2023 01/29/2024 07/12/2024 WBC 3.70 - 11.00 k/uL 5.95 6.72 7.29 RBC 4.20 - 6.00 m/uL 5.25 5.34 5.53 Hemoglobin 13.0 - 17.0 g/dL 16.3 16.9 16.4 Hematocrit 39.0 - 51.0 % 48.6 50.0 48.9 MCV 80.0 - 100.0 fL 92.6 93.6 88.4 MCH 26.0 - 34.0 pg 31.0 31.6 29.7 MCHC 30.5 - 36.0 g/dL 33.5 33.8 33.5 RDW-CV 11.5 - 15.0 % 13.8 12.4 12.9 Platelet Count 150 - 400 k/uL 223 185 200 MPV 9.0 - 12.7 fL 9.3 9.5 9.2 Neut% % 41.6 50.8 Abs Neut (ANC) 1.45 - 7.50 k/uL 2.47 3.70 Lymph% % 45.7 35.8 Abs Lymph 1.00 - 4.00 k/uL 2.72 2.61 [place]% % 5.5 7.0 Abs [place] <0.87 k/uL 0.33 0.51 Eosin% % 5.2 3.8 Abs Eosin <0.46 k/uL 0.31 0.28 Baso% % 1.0 0.8 Abs Baso <0.11 k/uL 0.06 0.06 Immature Gran % % 1.0 1.8 IMMATURE GRANS (ABS) <0.10 k/uL 0.06 0.13 (H) NRBC /100 WBC 0.0 0.0 Absolute nRBC <0.01 k/uL <0.01 <0.01 <0.01 DTYPE Auto Auto Protein, Total 6.3 - 8.0 g/dL 6.0 (L) 6.5 6.4 Albumin 3.9 - 4.9 g/dL 4.5 4.4 4.5 Calcium 8.5 - 10.2 mg/dL 9.2 9.4 9.6 Bilirubin, Total 0.2 - 1.3 mg/dL 0.6 0.5 0.5 Alkaline Phosphatase 38 - 113 U/L 42 44 54 AST 14 - 40 U/L 10 (L) 14 15 ALT 10 - 54 U/L 7 (L) 8 (L) 9 (L) Glucose 74 - 99 mg/dL 117 (H) 145 (H) 128 (H) BUN 9 - 24 mg/dL 21 23 25 (H) Creatinine 0.73 - 1.22 mg/dL 1.18 1.12 1.24 (H) Sodium 136 - 144 mmol/L 138 138 134 (L) Potassium 3.7 - 5.1 mmol/L 5.2 (H) 4.7 5.1 Chloride 98 - 107 mmol/L 101 103 97 (L) CO2 22 - 30 mmol/L 27 26 26 Anion Gap 8 - 15 mmol/L 10 9 11 eGFR >=60 mL/min/1.73m 65 69 61 Cholesterol, Total <200 mg/dL 186 197 200 (H) Triglyceride <150 mg/dL 97 89 96 HDL Cholesterol >39 mg/dL 46 53 53 Non HDL Cholesterol <130 mg/dL 140 (H) 144 (H) 147 (H) Fasting Time hrs 12 12 12 VLDL Cholesterol <30 mg/dL 19 18 19 TC:HDL Ratio <5.10 4.04 3.72 3.77 LDL Cholesterol <100 mg/dL 121 (H) 126 (H) 128 (H) LDL:HDL Ratio <2.54 2.63 (H) 2.38 2.42 Creatinine, Ur Random (UCRR) 20.0 - 300.0 mg/dL 134.7 75.1 Albumin, Urine Random mg/L 80.5 23.7 Albumin/Creat Ratio <30 mg/g 60 (H) 32 (H) Hemoglobin A1C 4.3 - 5.6 % 6.0 (H) 6.2 (H) 5.8 (H) Estimated Average Glucose mg/dL 126 131 120 Vitamin D 25 Hydroxy 31.0 - 80.0 ng/mL 58.8 54.8 PSA Screening <2.60 ng/mL 0.33 Legend: (L) Low (H) High Assessment and Plan # Controlled type 2 diabetes mellitus with diabetic neuropathy, with long-term current use of insulin (HCC) (E11.40) - Hemoglobin A1c improved to 5.8%. - Experiencing occasional blood glucose readings in the 70s, but no symptomatic hypoglycemia reported. - Current insulin regimen includes Novolog 10 units with meals and Lantus 5 units at bedtime; occasionally omits doses based on blood glucose readings. - Discussed potential to reduce or eliminate Lantus if blood glucose consistently remains above target postprandially. - Reinforced importance of monitoring blood glucose levels before bedtime and adjusting insulin doses accordingly to prevent nocturnal hypoglycemia. - Scheduled follow-up labs in January to include A1c, lipid panel, comprehensive metabolic panel, and urine [id number] ratio (UACR). # Mixed hyperlipidemia (E78.2) # Statin intolerance (Z78.9) - LDL cholesterol remains in the 120s; HDL at 53 mg/dL, triglycerides within normal limits. - Intolerant to statins due to severe myalgias. - Continuing Zetia therapy. - Emphasized adherence to a heart-healthy diet. # Vitamin D deficiency (E55.9) - Vitamin D levels are currently adequate. - Taking 2,000 units of Vitamin D daily. - Will monitor Vitamin D levels in January. # Essential hypertension, benign (I10) - Blood pressure well-controlled with carvedilol; home readings averaging 120s/60s. - Refilled carvedilol prescription. # Class 1 obesity due to excess calories with body mass index (BMI) of 34.0 to 34.9 in adult, unspecified whether serious comorbidity present (E66.811) - Weight has increased from 206 lbs in July 2023 to 224 lbs. - Discussed potential weight gain associated with insulin therapy. - Encouraged maintaining an active lifestyle. # Encounter for immunization (Z23) - Declined further COVID-19 and influenza vaccinations. - Advised on the benefits of tetanus, shingles, and RSV vaccines; informed that these are availableat the pharmacy. Evie Grewal MD documented in this encounter[facility] NoteHNO ID: [id number] Author: THOMAS MCCLENDON RN Service: ? Author Type: Registered Nurse Type: Progress Notes Filed: 07/21/2024 13:32 Note Text: CDM Telephonic Outreach Provider Action/FYI CDM: CHF Pt denies symptom changes, concerns or needs Instructed to contact PCP/Provider for symptom changes, concerns or needs. Patient verbalized understanding. SDOH updated Contacted for: Routine Telephonic Outreach Contact made with patient: Yes Patient identified by name and date of . Discussed care with patient Are you experiencing any new or worsening symptoms you need to talk about today? No Disease Specific Do you check your blood pressure at home? Yes, Enter readings: 130/70 Do you have new or worsening shortness of breath with activity? No Do you have new or worsening trouble breathing while lying flat? No Do you have new or worsening swelling of legs, feet or ankles? No Do you check your daily weight at home? Yes, Have you noticed a sudden gain in weight greater than three pounds in a day or three pounds in a week? Yes Based on custodian supervisor, the following disposition is advised: No symptoms or symptoms present, not severe. Routed to: No Action Needed VINCENT Education Provided this Outreach: No Thomas Mcclendon RN July 21, 2024 1:28 [facility]12-05-2024 History of Present illness Narrative* Thomas Mcclendon RN - 07/21/2024 1:26 PM EST CDM Telephonic Outreach Provider Action/FYI CDM: CHF Pt denies symptom changes, concerns or needs Instructed to contact PCP/Provider for symptom changes, concerns or needs. Patient verbalized understanding. SDAK updated Contacted for: Routine Telephonic Outreach Contact made with patient: Yes Patient identified by name and date of . Discussed care with patient Are you experiencing any new or worsening symptoms you need to talk about today? No Disease Specific Do you check your blood pressure at home? Yes, Enter readings: 130/70 Do you have new or worsening shortness of breath with activity? No Do you have new or worsening trouble breathing while lying flat? No Do you have new or worsening swelling of legs, feet or ankles? No Do you check your daily weight at home? Yes, Have you noticed a sudden gain in weight greater than three pounds in a day or three pounds in a week? Yes Based on custodian supervisor, the following disposition is advised: No symptoms or symptoms present, not severe. Routed to: No Action Needed VINCENT Education Provided this Outreach: No Thomas Mcclendon RN July 21, 2024 1:28 PM documented in this encounterSelect [facility] NotePatient Outreach ([facility]) KENDRICK BARRAZA ([id number]) 1950 M Date Time Provider Department 07/21/24 THOMAS MCCLENDON [facility] During your visit today, we recorded the following information about you: Thomas Mcclendon, RN 07/21/2024 1:32 PM Signed CDM Telephonic Outreach Provider Action/FYI CDM: CHF Pt denies symptom changes, concerns or needs Instructed to contact PCP/Provider for symptom changes, concerns or needs. Patient verbalized understanding. [facility] updated Contacted for: Routine Telephonic Outreach Contact made with patient: Yes Patient identified by name and date of . Discussed care with patient Are you experiencing any new or worsening symptoms you need to talk about today? No Disease Specific Do you check your blood pressure at home? Yes, Enter readings: 130/70 Do you have new or worsening shortness of breath with activity? No Do you have new or worsening trouble breathing while lying flat? No Do you have new or worsening swelling of legs, feet or ankles? No Do you check your daily weight at home? Yes, Have you noticed a sudden gain in weight greater than three pounds in a day or three pounds in a week? Yes Based on custodian supervisor, the following disposition is advised: No symptoms or symptoms present, not severe. Routed to: No Action Needed VINCENT Education Provided this Outreach: No Thomas Mcclendon RN July 21, 2024 1:28 PM Allergies As of Date: 07/21/2024 Noted Allergy Reaction OXYCODONE 11/26/2021 11 - Vomiting CIPROFLOXACIN 03/30/2017 11 - Vomiting Comments: dizziness CRESTOR (ROSUVASTATIN) 07/15/2006 5 - Intolerance Comments: Severe myalgias; could not work because so severe LIPITOR (ATORVASTATIN CALCIUM) 11/20/2011 14 - Other: See Comments Comments: Joint pain PRAVACHOL (PRAVASTATIN SODIUM) 02/09/2012 5 - Intolerance Comments: myalgias STATINS ([id number] REDUCTAS*07/20/2009 5 - Intolerance Comments: Muscle aches; so bad cannot move Date Reviewed: 05/06/2024 Reviewed by: Honey Haney LPN - Fully Assessed Reason for Visit: CDM [Other] Cmt: Chronic Disease Management Routine Call Prescriptions as of 08/19/2024 - carvedilol (COREG) 12.5 mg tablet Take 1 tablet by mouth two times a day. - ezetimibe (ZETIA) 10 mg tablet Take 1 tablet by mouth once daily. - Cholecalciferol, Vitamin D3, 50 mcg (2,000 unit) cap Take 1 capsule by mouth once daily. - insulin aspart U-100 (NOVOLOG FLEXPEN U-100 INSULIN) 100 unit/mL (3 mL) Inject 10 Units subcutaneously three times a day before meals. As directed when eats meals - insulin glargine (LANTUS SOLOSTAR U-100 INSULIN) 100 unit/mL (3 mL) Inject 5 Units subcutaneously daily at bedtime. (Adjust as indicated) Needs 1 pen a month so please fill 3 pens per 3 months. Give 5 pens if not able to split the box - metFORMIN ER (GLUCOPHAGE XR) 500 mg 24 hr tablet Take 4 tablets by mouth once daily. - ramipril (ALTACE) 10 mg capsule Take 1 capsule by mouth once daily. - blood sugar diagnostic (Advanced Surgical ConceptsTOUCH ULTRA TEST) test strip Test blood sugar(s) 4 times daily. Dx: E11.65, DM. Insulin: Yes (Meals and bedtime--4 injections) - docusate sodium (COLACE) 100 mg capsule Take 200 mg by mouth three times daily as needed for constipation. - aspirin, enteric coated (ASPIRIN, ENTERIC COATED) 81 mg EC tablet Take 1 tablet by mouth twice daily. - ascorbic acid, vitamin C, (VITAMIN C) 500 mg tablet Take 1 tablet by mouth twice daily with meals for 26 doses. - insulin needles, DISPOSABLE, (PEN NEEDLE) 31 gauge x 5/16 ndle Use one needle per dose. 4 per day. Problem List As Of Date 07/21/2024 Noted Resolved DM w/o complication type II [E11.9] 07/15/2006 12/22/2011 Primary hypertension [I10] 07/15/2006 Mixed hyperlipidemia [E78.2] 07/22/2006 Vitamin D deficiency [E55.9] 05/02/2011 Pleural effusion [J90] 11/19/2011 12/11/2014 CLL (chronic lymphocytic leukemia) [C91.10] 11/20/2011 Controlled type 2 diabetes mellitus with diabet*12/11/2011 CVA (cerebral infarction) (HCC) [I63.9] 12/22/2011 07/18/2014 CHF (congestive heart failure) [I50.9] 12/22/2011 CAD (coronary artery disease) [I25.10] 12/22/2011 CVA, old, cognitive deficits [I69.319] 09/15/2012 Statin intolerance [Z78.9] 11/03/2013 BMI 39.0-39.9,adult [Z68.39] 04/16/2017 Prostate cancer (HCC) [C61] 12/11/2014 BPH (benign prostatic hyperplasia) [N40.0] 12/11/2014 Elevated PSA [R97.20] 12/27/2014 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*03/06/2015 Hot flashes [R23.2] 12/27/2015 Sebaceous cyst [L72.3] 05/21/2016 Morbid obesity (HCC) [E66.01] 09/30/2017 05/01/2023 Uncontrolled type 2 diabetes mellitus with hype*01/19/2019 11/01/2021 Primary osteoarthritis of left hip [M16.12] 11/01/2021 Obesity, Class I, BMI 30-34.9 [E66.811] 12/08/2022 Stage 3a chronic kidney disease (HCC) [N18.31] 01/16/2023 08/20/2023 PAD (peripheral artery disease) (HCC) (more content not included)...[facility]11-04[facility]24 History of Present illness Narrative* Thomas Mcclendon RN - 06/20/2024 3:28 PM EST CDM Telephonic Outreach Provider Action/FYI CDM: CHF Pt denies symptom changes, concerns or needs Instructed to contact PCP/Provider for symptom changes, concerns or needs.Patient verbalized understanding. SDH updated Appt reminders given Contacted for: Routine Telephonic Outreach Contact made with patient: Yes Patient identified by name and date of . Discussed care with patient Are you experiencing any new or worsening symptoms you need to talk about today? No Disease Specific Do you check your blood pressure at home? Yes, Enter readings: 122/60 Do you have new or worsening shortness of breath with activity? No Do you have new or worsening trouble breathing while lying flat? No Do you have new or worsening swelling of legs, feet or ankles? No Do you check your daily weight at home? Yes, Have you noticed a sudden gain in weight greater than three pounds in a day or three pounds in a week? No Based on custodian supervisor, the following disposition is advised: No symptoms or symptoms present, not severe. Routed to: No Action Needed VINCENT Education Provided this Outreach: No Thomas Mcclendon RN June 20, 2024 3:38 PM documented in this encounterSelect [facility] [place] History of Present illness Narrative* Thomas Mcclendon RN - 05/24/2024 12:03 PM EDT CDM Telephonic Outreach Provider Action/FYI CDM: CHF SDH updated, Pt denies symptom changes, concerns or needs Instructed to contact PCP/Provider for symptom changes, concerns or needs. Patient verbalized understanding. Contacted for: Routine Telephonic Outreach Contact made with patient: Yes Patient identified by name and date of . Discussed care with patient Are you experiencing any new or worsening symptoms you need to talk about today? No Disease Specific Do you check your blood pressure at home? Yes, Enter readings: 126/60 Do you have new or worsening shortness of breath with activity? No Do you have new or worsening trouble breathing while lying flat? No Do you have new or worsening swelling of legs, feet or ankles? No Do you check your daily weight at home? Yes, Have you noticed a sudden gain in weight greater than three pounds in a day or three pounds in a week? No Based on custodian supervisor, the following disposition is advised: No symptoms or symptoms present, not severe. Routed to: No Action Needed VINCENT Education Provided this Outreach: No Thomas Hermosillo Mcclendon, RN May 24, 2024 12:10 PM documented in this encounterSelect [facility] [place] History of Present illness Narrative* Papa Gar - 05/06/2024 4:05 PM EDT Last saw pcp: 04/08/24 Subjective: Patient presents to clinic c/o painful toenails. They state that the nails are especially painful with shoe gear and pressure. Patient states that nails 1-5 b/l are painful. Patient admits to being diabetic. Patient is requesting order for diabetic shoes. States that last order, insurance did not cover No other pedal complaints at this time. Patient states no change in medications or medical history since last visit. Objective: Patient presents to clinic ambulating in diabetic shoes Vasc: DP and PT pulses are nonpalpable bilateral. CFT is less than 5 seconds bilateral. Skin temperature is warm to cool proximal to distal bilateral. There is mild edema or varicosities noted. Neuro: Protective sensation is absent to the foot and toes when tested with the 5.07 SWM bilateral.Vibratory sensation is absent at the hallux IPJ bilateral. The hallux is downgoing bilateral. Derm: Nails 1-5 b/l are painful, discolored-yellow, thick, crumbly, dystrophic and with subungal debris. Skin is ruborous and hair growth is absent bilateral. There are no hyperkeratosis, ulcerations, scars, verruca or other lesions noted. Ortho: Muscle strength is 5/5 for all pedal groups tested. Ankle joint DF is decreased with the knee extended with no pain or crepitus noted. 1st MPJ ROM is decreased bilateral. Assessment: (E11.42) Diabetic polyneuropathy associated with type 2 diabetes mellitus (HCC) (primary encounter diagnosis) (I73.9) PAD (peripheral artery disease) ([facility]) (B35.1) Onychomycosis (M79.675) Pain in toe of left foot (M79.674) Pain in toe of right foot Plan: Patient was seen and evaluated. Nails 1-5 bilateral were debrided in length and thickness. Small bleed to left 4th and left 5th toe. Alcohol applied. Patient declined band aide. Patient was instructed on the continued importance of diabetic foot care along with proper diet andkeeping their blood sugar under control to prevent complications. Stressed the importance of avoiding barefoot walking, wearing good shoes and inspection of feet daily. Given neuropathy and pad, would benefit from diabetic shoes. Diabetic shoes were ordered. Patient is to RTC in 3-4 months. Papa Gar DPM * Honey Haney LPN - 05/06/2024 3:24 PM EDT AMB ROOMING INTAKE FLOWSHEET DATA Patient presents with: Left Foot - Established Patient, Diabetic Foot Care Right Foot - Diabetic Foot Care Honey Haney LPN documented in this encounterSelect Medical [facility] [place]20-[facility] Instructions* Patient Instructions* Papa Gar - 05/06/2024 4:00 PM EDT Diabetes Foot Care Instructions When you have diabetes, proper foot care is very important. Poor foot care may lead to amputation of a foot or leg. As a person with diabetes, you are more vulnerable to foot problems, because diabetes can damage your nerves and reduce blood flow to your feet. Here are some diabetes foot care tips to follow: Wash and Dry Your Feet Daily Use mild soaps Use warm water Pat your skin dry; do not rub. Thoroughly dry your feet. After washing, use lotion on your feet to prevent cracking. Do not put lotion between your toes. Examine Your Feet Each Day Check the tops and bottoms of your feet. Have someone else look at your feet if you cannot see them. Check for dry, cracked skin. Look for blisters, cuts, scratches, or other sores. Check for redness, increased warmth, or tenderness when touching any area of your feet. Check for ingrown toenails, corns, and calluses. If you get a blister or sore from your shoes, do not pop it. Apply a bandage and wear a differentpair of shoes. Take Care of Your Toenails Cut toenails after bathing, when they are soft. Cut toenails straight across and smooth with a nail file. Avoid cutting into the corners of toes. Do not cut cuticles. If you have neuropathy (or decreased sensation in your feet) a passport support associate should always cut your toenails. Be Careful When Exercising Walk and exercise in comfortable shoes. Do not exercise when you have open sores on your feet. Protect Your Feet With Shoes and Socks Never go barefoot. Always protect your feet by wearing shoes or hard-soled slippers or footwear. Avoid shoes with high heels and pointed toes. Avoid shoes that expose your toes or heels (such as open-toed shoes or sandals). These types of shoes increase your risk for injury and potential infections. Try on new footwear with the type of socks you usually wear. Do not wear new shoes for more than an hour at a time. Change your socks daily. Look and feel inside your shoes before putting them on to make sure there are no foreign objects orrough areas. Avoid tight socks. Wear natural-fiber socks (cotton, wool, or a cotton-wool blend). Wear special shoes if your health care provider recommends them. Wear shoes/boots that will protect your feet from various weather conditions (cold, moisture, etc.). Make sure your shoes fit properly. If you have neuropathy (nerve damage), you may not notice that your shoes are too tight. Perform the footwear test described below. Footwear Test Use this simple test to see if your shoes fit correctly: Stand on a piece of paper. (Make sure you are standing and not sitting, because your foot changes shape when you stand.) Trace the outline of your foot. Trace the outline of your shoe. Compare the tracings: Is the shoe too narrow? Is your foot crammed into the shoe? The shoe should be at least 1/2 inch longer than your longest toe and as wide as your foot. Proper Shoe Choices The following types of shoes are best for people with diabetes Closed toes and heels Leather uppers without a seam inside At least 1/2 inch extra space at the end of your longest toe Inside of shoe should be soft with no rough areas Outer sole should be made of stiff material Shoes should be at least as wide as your feet Tips for Foot Care in Diabetes Don't wait to treat a minor foot problem if you have diabetes. Follow your health care provider's guidelines and first aid guidelines. Report foot injuries and infections to your health care provider immediately. Check water temperature with your elbow, not your foot. Do not use a heating pad on your feet. Do not cross your legs. Do not self-treat your corns, calluses, or other foot problems. Go to your health care provider or passport support associate to treat these conditions. documented in this encounterSelect Medical [facility] [place]09-[facility] History of Present illness Narrative* Thomas Mcclendon RN - 04/26/2024 2:47 PM EDT CDM Telephonic Outreach Provider Action/FYI Pt reports mild intermittent productive cough with clear to white sputum, denies CP, Sob, uses 's Pulse Ox reading at 98%, BP 125/65 P 67 No respiratory distress Instructed to contact PCP/Provider for symptom changes, concerns or needs. Pt verbalized understanding Contacted for: Routine Telephonic Outreach Contact made with patient: Yes Patient identified by name and date of . Discussed care with patient Are you experiencing any new or worsening symptoms you need to talk about today? Yes Based on custodian supervisor, the following disposition is advised: No symptoms or symptoms present, not severe. Routed to: No Action Needed VINCENT Education Provided this Outreach: No Thomas Mcclendon RN April 26, 2024 2:56 PM documented in this encounterSelect Medical [facility] [place]-23-[facility] History of Present illness Narrative* Anna Hernandez APRN.[employer]EE [employer]OP ATTENDANT - 04/08/2024 12:46 PM EDT SUBJECTIVE: Depression Screening Never done Anxiety Screening Never done HPI Kendrick Barraza is a 73 year old male. Past medical history significant for coronary artery disease status post coronary stent to LAD and diagonal 2012. Hypertension, hyperlipidemia diabetes CVA 2011, CLL and PVCs. 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 Staged PCI with drug-eluting stent to distal left circumflex on 05/04/2020. at [facility]. Dr Alexander. S/P left posterior total hip surgery Glendy Ochoa MD 11/11/2021. Followed by urologist at [facility], checks PSA. Most recent check here was within normal limits Dr Mistry, hematology oncology following CLL, prostate cancer. In remission. He was seen by Ronald Covington CNP regarding possible cellulitis, seen at [facility] November 14, 2023. He was treated with cephalexin. Since last seen he notes he is in his usual state of health. Notes he had car trouble today. Scars about 11 years old. HTN: Without report of headache, chest pain, palpitations, dyspnea, peripheral edema, orthopnea, fatigue, and PND. Last 3 Encounter BP Readings: Date: BP: 12/04/2023 130/68 10/09/2023 138/70 07/18/2023 114/74 DIABETES MELLITUS: He brings in home glucose readings which all show good control. He reports he holds short acting insulin at times if blood sugar at 100 or lower to avoid hypoglycemia. No report ofexcessive thirst or increased frequency of urination, chest pain or dyspnea , numbness, tingling orpain in extremities, new or unusual visual symptoms, low sugar/hypoglycemic reactions, weight loss/gain, lightheadedness/dizziness and bowel changes/loose stools. Patient's last HgA1C was Hemoglobin A1C Date Value 11/13/2023 6.2 % 07/01/2023 6.0 % 06/11/2023 6.1 04/13/2021 6.5 % 12/08/2020 7.0 % Hemoglobin A1C (POCT) (%) Date Value 07/26/2021 6.4 ) Hyperlipidemia. Mr. Barraza reports doing well on current therapy .His most recent lipid panels are: Cholesterol, Total (mg/dL) Date Value 11/13/2023 197 07/01/2023 186 07/13/2021 204 08/16/2020 172 HDL Cholesterol (mg/dL) Date Value 11/13/2023 53 07/01/2023 46 07/13/2021 46 08/16/2020 41 LDL Cholesterol (mg/dL) Date Value 11/13/2023 126 07/01/2023 121 07/13/2021 137 08/16/2020 113 Triglyceride (mg/dL) Date Value 11/13/2023 89 07/01/2023 97 07/13/2021 107 08/16/2020 92 Notes statin intolerance, takes ezetimibe. Sees eye doctor routinely. Review of Systems Constitutional: Negative. Respiratory: Negative. Cardiovascular: Negative. Endocrine: Negative. Objective BP 146/80 Pulse 92 Resp 16 Wt 96.6 kg (212 lb 15.4 oz) BMI (P) 32.86 kg/m Physical Exam Vitals and nursing note reviewed. Constitutional: Appearance: Normal appearance. HENT: Head: Normocephalic and atraumatic. Eyes: Conjunctiva/sclera: Conjunctivae normal. Neck: Thyroid: No thyromegaly. Vascular: Normal carotid pulses. No JVD. Cardiovascular: Rate and Rhythm: Normal rate and regular rhythm. Pulses: Carotid pulses are 2+ on the right side and 2+ on the left side. Radial pulses are 2+ on the right side and 2+ on the left side. Pulmonary: Effort: Pulmonary effort is normal. Breath sounds: Normal breath sounds. Abdominal: General: Bowel sounds are normal. Palpations: Abdomen is soft. Musculoskeletal: Right lower leg: No edema. Left lower leg: No edema. Skin: General: Skin is warm and dry. Neurological: General: No focal deficit present. Mental Status: He is alert and oriented to person, place, and time. ALLERGIES Allergen Reactions Oxycodone Vomiting Ciprofloxacin Vomiting dizziness Crestor [Rosuvastat* Intolerance Severe myalgias; could not work because so severe Lipitor [Atorvastat* Other: See Comments Joint pain Pravachol [Pravasta* Intolerance myalgias Statins [Statins-Hm* Intolerance Muscle aches; so bad cannot move Medications blood sugar diagnostic ([employer] ULTRA TEST) test strip Test blood sugar(s) 4 times daily. Dx: E11.65, DM. Insulin: Yes (Meals and bedtime--4 injections) ezetimibe (ZETIA) 10 mg tablet Take 1 tablet by mouth once daily. carvedilol (COREG) 12.5 mg tablet Take 1 tablet by mouth two times a day. docusate sodium (COLACE) 100 mg capsule Take 200 mg by mouth three times daily as needed for constipation. aspirin, enteric coated (ASPIRIN, ENTERIC COATED) 81 mg EC tablet Take 1 tablet by mouth twice daily. Cholecalciferol, Vitamin D3, 125 mcg (5,000 unit) cap Take 1 capsule by mouth every other day. May switch to 2000 units daily insulin needles, DISPOSABLE, (PEN NEEDLE) 31 gauge x 5/16 ndle Use one needle per dose. 4 per day. insulin aspart U-100 (NOVOLOG FLEXPEN U-100 INSULIN) 100 unit/mL (3 mL) Inject 10 Units subcutaneously three times a day before meals. As directed when eats meals insulin glargine (LANTUS SOLOSTAR U-100 INSULIN) 100 unit/mL (3 mL) Inject 5 Units subcutaneously daily at bedtime. (Adjust as indicated) Needs 1 pen a month so please fill 3 pens per 3 months. Give 5 pens if not able to split the box metFORMIN ER (GLUCOPHAGE XR) 500 mg 24 hr tablet Take 4 tablets by mouth once daily. ramipril (ALTACE) 10 mg capsule Take 1 capsule by mouth once daily. ascorbic acid, vitamin C, (VITAMIN C) 500 mg tablet Take 1 tablet by mouth twice daily with meals for 26 doses. PAST MEDICAL HISTORY No date: CAD (coronary artery disease) Comment: Stents x 4 12/22/2011: CHF (congestive heart failure) ([facility]) 09/30/2017: Class 1 obesity due to excess calories with body mass index (BMI) of 34.0 to 34.9 in adult 11/20/2011: CLL (chronic lymphocytic leukemia) ([facility]) 10/2011: cva Comment: left pontine infarct No date: Diabetes mellitus without mention of complication Comment: Diabetes mellitus No date: Diverticulosis of colon (without mention of hemorrhage) 12/11/2014: Elevated PSA 07/22/2006: HYPERLIPIDEMIA NEC/NOS 07/15/2006: HYPERTENSION NOS No date: Obesity 11/19/2011: Pleural effusion Comment: Small lft pleural effusion Noted on chest x-ray [facility] On 11/13/11.blunting of the lft costophrenic andle. No date: PVC (premature ventricular contraction) 01/19/2019: Uncontrolled type 2 diabetes mellitus with hyperglycemia ([facility]) Social History Tobacco Use Smoking status: Never Smokeless tobacco: Never Vaping Use Vaping status: Never Used Substance Use Topics Alcohol use: No Drug use: No Latest Ref Rng 11/13/2023 01/29/2024 Protein, Total 6.3 - 8.0 g/dL 6.5 Albumin 3.9 - 4.9 g/dL 4.4 Calcium 8.5 - 10.2 mg/dL 9.4 Bilirubin, Total 0.2 - 1.3 mg/dL 0.5 Alkaline Phosphatase 38 - 113 U/L 44 AST 14 - 40 U/L 14 ALT 10 - 54 U/L 8 (L) Glucose 74 - 99 mg/dL 145 (H) BUN 9 - 24 mg/dL 23 Creatinine 0.73 - 1.22 mg/dL 1.12 Sodium 136 - 144 mmol/L 138 Potassium 3.7 - 5.1 mmol/L 4.7 Chloride 97 - 105 mmol/L 103 CO2 22 - 30 mmol/L 26 Anion Gap 9 - 18 mmol/L 9 eGFR >=60 mL/min/1.73m 69 WBC 3.70 - 11.00 k/uL 6.72 RBC 4.20 - 6.00 m/uL 5.34 Hemoglobin 13.0 - 17.0 g/dL 16.9 Hematocrit 39.0 - 51.0 % 50.0 MCV 80.0 - 100.0 fL 93.6 MCH 26.0 - 34.0 pg 31.6 MCHC 30.5 - 36.0 g/dL 33.8 RDW-CV 11.5 - 15.0 % 12.4 Platelet Count 150 - 400 k/uL 185 MPV 9.0 - 12.7 fL 9.5 Absolute nRBC <0.01 k/uL <0.01 Cholesterol, Total <200 mg/dL 197 Triglyceride <150 mg/dL 89 HDL Cholesterol >39 mg/dL 53 Non HDL Cholesterol <130 mg/dL 144 (H) Fasting Time hrs 12 VLDL Cholesterol <30 mg/dL 18 TC:HDL Ratio <5.10 3.72 LDL Cholesterol <100 mg/dL 126 (H) LDL:HDL Ratio <2.54 2.38 Creatinine, Ur Random (UCRR) 20.0 - 300.0 mg/dL 75.1 Albumin, Urine Random mg/L 23.7 Albumin/Creat Ratio <30 mg/g 32 (H) Hemoglobin A1C 4.3 - 5.6 % 6.2 (H) Estimated Average Glucose mg/dL 131 Vitamin D 25 Hydroxy 31.0 - 80.0 ng/mL 58.8 PSA Screening <2.60 ng/mL 0.33 ASSESSMENT/PLAN: 1. Controlled type 2 diabetes mellitus with diabetic neuropathy, with long-term current use of insulin (HCC) - ICD9: 250.60, 357.2, V58.67, ICD10: E11.40, Z79.4 (primary diagnosis) Controlled, continue current treatments unchanged, continue to monitor. Labs in July. 2. Essential hypertension, benign - ICD9: 401.1, ICD10: I10 - Controlled - Continue current medications - Encouraged sodium restriction, DASH or Mediterranean diet - Recommend regular aerobic exercise - RAMIPRIL 10 MG CAPSULE 3. Prostate cancer (HCC) - ICD9: 185, ICD10: C61 S/P prostate cancer treatment. In remission. Follow up PSA within normal limits 4. Screening for depression - ICD9: V79.0, ICD10: Z13.31 - DEPRESSION SCREENING 5. Encounter for screening examination for other mental health and behavioral disorders - ICD9: V79.8, ICD10: Z13.39 - ANXIETY SCREENING Keep scheduled follow-up appointment PCP. Labs in July Anna Hernandez APRN.CNS Medical Decision Making: Problems: Moderate: 2+ stable chronic illnesses Data: Unique test result(s) reviewed: 2 Risk: Moderate: Drug management Medical Decision Making Level: 4 - Moderate documented in [facility] encounter[facility] History of Present illness Narrative* Thomas Mcclendon RN - 04/01/2024 4:44 PM EDT CDM Telephonic Outreach Provider Action/FYI CDM: CHF Pt denies symptom changes, concerns or needs. BP 129/65, wt 215 lbs, instructed to call PCP with any changes in symptoms or concerns. Pt verbalized understanding. Pt noted appreciation for call. SDH, Goals updated Contacted for: Routine Telephonic Outreach Contact made with patient: Yes Patient identified by name and date of . Discussed care with patient Are you experiencing any new or worsening symptoms you need to talk about today? No Disease Specific Do you check your blood pressure at home? 129/65 Do you have new or worsening shortness of breath with activity? No Do you have new or worsening trouble breathing while lying flat? No Do you have new or worsening swelling of legs, feet or ankles? No Do you check your daily weight at home? Yes, Have you noticed a sudden gain in weight greater than three pounds in a day or three pounds in a week? No Based on custodian supervisor, the following disposition is advised: No symptoms or symptoms present, not severe. Routed to: No Action Needed VINCENT Education Provided this Outreach: No Thomas Mcclendon RN April 01, 2024 4:45 PM documented in this encounterSelect [facility] [place] Telephone encounter Note * Telephone Encounter - Crista Atkinson LPN - 03/31/2024 2:21 PM EDT Prescription Refill Information The patient has been identified by name and date of : Yes Caregiver verified no other encounters exist for this prescription request: Yes Caregiver confirmed with patient/requestor that no other refills are due, in the near future, with this provider at this time: Yes The last office visit in the department: 12/04/23 Does the patient have a future office visit with this provider/department: Yes 04/08/24 with Anna Requested Prescriptions Pending Prescriptions Disp Refills blood sugar diagnostic ([employer]CH ULTRA TEST) test strip 300 Strip 1 Sig: Test blood sugar(s) 4 times daily. Dx: E11.65, DM. Insulin: Yes (Meals and bedtime--4 injections) Crista Atkinson LPN March 31, 2024 2:22 PM [facility] Miscellaneous Notes* Telephone Encounter - Crista Atiknson LPN - 03/31/2024 2:21 PM EDT Prescription Refill Information The patient has been identified by name and date of : Yes Caregiver verified no other encounters exist for this prescription request: Yes Caregiver confirmed with patient/requestor that no other refills are due, in the near future, with this provider at this time: Yes The last office visit in the department: 12/04/23 Does the patient have a future office visit with this provider/department: Yes 04/08/24 with Anna Requested Prescriptions Pending Prescriptions Disp Refills blood sugar diagnostic (ONETOUCH ULTRA TEST) test strip 300 Strip 1 Sig: Test blood sugar(s) 4 times daily. Dx: E11.65, DM. Insulin: Yes (Meals and bedtime--4 injections) Crista Atkinson LPN March 31, 2024 2:22 PM documented in this encounterSelect [facility] [place] History of Present illness Narrative* Thomas Mcclendon RN - 03/08/2024 6:02 PM EDT CDM Telephonic Outreach Provider Action/FYI CDM: CHF Pt denies symptom changes, concerns or needs SDH, Goals updated Contacted for: Routine Telephonic Outreach Contact made with patient: Yes Patient identified by name and date of . Discussed care with patient Are you experiencing any new or worsening symptoms you need to talk about today? No Disease Specific Do you check your blood pressure at home? Yes, Enter readings: 129/60 Do you have new or worsening shortness of breath with activity? No Do you have new or worsening trouble breathing while lying flat? No Do you have new or worsening swelling of legs, feet or ankles? No Do you check your daily weight at home? Yes, Have you noticed a sudden gain in weight greater than three pounds in a day or three pounds in a week? No Based on custodian supervisor, the following disposition is advised: No symptoms or symptoms present, not severe. Routed to: No Action Needed VINCENT Education Provided this Outreach: No Thomas Mcclendon RN March 08, 2024 6:03 PM * Thomas Mcclendon RN - 03/04/2024 7:16 PM EDT CDM Telephonic Outreach Provider Action/FYI CDM: CHF Left a message to verify symptom status, instructed to contact PCP for condition changes and needs. Goals updated Contacted for: Routine Telephonic Outreach Contact made with patient: No, left message. Thomas Mcclendon RN March 04, 2024 7:16 PM documented in this encounterSelect [facility] Instructions* Patient Instructions* AlishafoziaLissaew - 01/29/2024 2:35 PM EDT Diabetes Foot Care Instructions When you have diabetes, proper foot care is very important. Poor foot care may lead to amputation of a foot or leg. As a person with diabetes, you are more vulnerable to foot problems, because diabetes can damage your nerves and reduce blood flow to your feet. Here are some diabetes foot care tips to follow: Wash and Dry Your Feet Daily Use mild soaps Use warm water Pat your skin dry; do not rub. Thoroughly dry your feet. After washing, use lotion on your feet to prevent cracking. Do not put lotion between your toes. Examine Your Feet Each Day Check the tops and bottoms of your feet. Have someone else look at your feet if you cannot see them. Check for dry, cracked skin. Look for blisters, cuts, scratches, or other sores. Check for redness, increased warmth, or tenderness when touching any area of your feet. Check for ingrown toenails, corns, and calluses. If you get a blister or sore from your shoes, do not pop it. Apply a bandage and wear a differentpair of shoes. Take Care of Your Toenails Cut toenails after bathing, when they are soft. Cut toenails straight across and smooth with a nail file. Avoid cutting into the corners of toes. Do not cut cuticles. If you have neuropathy (or decreased sensation in your feet) a passport support associate should always cut your toenails. Be Careful When Exercising Walk and exercise in comfortable shoes. Do not exercise when you have open sores on your feet. Protect Your Feet With Shoes and Socks Never go barefoot. Always protect your feet by wearing shoes or hard-soled slippers or footwear. Avoid shoes with high heels and pointed toes. Avoid shoes that expose your toes or heels (such as open-toed shoes or sandals). These types of shoes increase your risk for injury and potential infections. Try on new footwear with the type of socks you usually wear. Do not wear new shoes for more than an hour at a time. Change your socks daily. Look and feel inside your shoes before putting them on to make sure there are no foreign objects orrough areas. Avoid tight socks. Wear natural-fiber socks (cotton, wool, or a cotton-wool blend). Wear special shoes if your health care provider recommends them. Wear shoes/boots that will protect your feet from various weather conditions (cold, moisture, etc.). Make sure your shoes fit properly. If you have neuropathy (nerve damage), you may not notice that your shoes are too tight. Perform the footwear test described below. Footwear Test Use this simple test to see if your shoes fit correctly: Stand on a piece of paper. (Make sure you are standing and not sitting, because your foot changes shape when you stand.) Trace the outline of your foot. Trace the outline of your shoe. Compare the tracings: Is the shoe too narrow? Is your foot crammed into the shoe? The shoe should be at least 1/2 inch longer than your longest toe and as wide as your foot. Proper Shoe Choices The following types of shoes are best for people with diabetes Closed toes and heels Leather uppers without a seam inside At least 1/2 inch extra space at the end of your longest toe Inside of shoe should be soft with no rough areas Outer sole should be made of stiff material Shoes should be at least as wide as your feet Tips for Foot Care in Diabetes Don't wait to treat a minor foot problem if you have diabetes. Follow your health care provider's guidelines and first aid guidelines. Report foot injuries and infections to your health care provider immediately. Check water temperature with your elbow, not your foot. Do not use a heating pad on your feet. Do not cross your legs. Do not self-treat your corns, calluses, or other foot problems. Go to your health care provider or passport support associate to treat these conditions. documented in this encounterSelect [facility] History of Present illness Narrative* Papa Gar - 01/29/2024 2:34 PM EDT Last saw pcp: 12/04/23 Subjective: Patient presents to clinic c/o painful toenails. They state that the nails are especially painful with shoe gear and pressure. Patient states that nails 1-5 b/l are painful. Patient admits to being diabetic. No other pedal complaints at this time. Patient states no change in medications or medical history since last visit. Objective: Patient presents to clinic ambulating in diabetic shoes Vasc: DP and PT pulses are nonpalpable bilateral. CFT is less than 5 seconds bilateral. Skin temperature is warm to cool proximal to distal bilateral. There is moderate edema or varicosities noted. Neuro: Protective sensation is absent to the foot and toes when tested with the 5.07 SWM bilateral.Vibratory sensation is absent at the hallux IPJ bilateral. The hallux is downgoing bilateral. Derm: Nails 1-5 b/l are painful, discolored-yellow, thick, crumbly, dystrophic and with subungal debris. Skin is thin, dry, ruborous, and hair growth is absent bilateral. There are no hyperkeratosis,ulcerations, scars, verruca or other lesions noted. Small abrasion of left leg without infection Ortho: Muscle strength is 5/5 for all pedal groups tested. Ankle joint DF is decreased with the knee extended with no pain or crepitus noted. 1st MPJ ROM is decreased bilateral. Assessment: (B35.1) Onychomycosis (primary encounter diagnosis) (M79.675) Pain in toe of left foot (M79.674) Pain in toe of right foot (E11.42) Diabetic polyneuropathy associated with type 2 diabetes mellitus (HCC) (I73.9) PAD (peripheral artery disease) ([facility]) Plan: Patient was seen and evaluated. Nails 1-5 bilateral were debrided in length and thickness. Small bleed to right 3rd toe and left 5th toe. Due to these nails always having tendency to bleed, discussed possible removal in the future via chemical matrixectomy. He has elected to continue with conservative care. Patient was instructed on the continued importance of diabetic foot care along with proper diet andkeeping their blood sugar under control to prevent complications. Discussed the need to avoid barefoot walking, daily foot inspection, use of good protective shoes. Patient is to RTC in 3-4 months. Continue with band aide to left leg until healed. Call if any issues arise. Papa Gar DPM * Honey Haney LPN - 01/29/2024 2:32 PM EDT AMB ROOMING INTAKE FLOWSHEET DATA Patient presents with: Left Foot - Established Patient, Diabetic Foot Care Right Foot - Diabetic Foot Care Honey Haney LPN documented in this encounterSelect [facility] History of Present illness Narrative* Thomas Mcclendon RN - 01/29/2024 11:34 AM EDT CDM Telephonic Outreach Provider Action/FYI CDM: CHF Pt denies symptom changes, concerns or needs. SDH, Goals updated Contacted for: Routine Telephonic Outreach Contact made with patient: Yes Patient identified by name and date of . Discussed care with patient Are you experiencing any new or worsening symptoms you need to talk about today? No Disease Specific Do you check your blood pressure at home? Yes, Enter readings: 130/60 Do you have new or worsening shortness of breath with activity? No Do you have new or worsening trouble breathing while lying flat? No Do you have new or worsening swelling of legs, feet or ankles? No Do you check your daily weight at home? Yes, Have you noticed a sudden gain in weight greater than three pounds in a day or three pounds in a week? No Based on custodian supervisor, the following disposition is advised: No symptoms or symptoms present, not severe. Routed to: No Action Needed VINCENT Education Provided this Outreach: No Thomas Mcclendon RN January 29, 2024 11:54 AM * Thomas Mcclendon RN - 01/28/2024 5:26 PM EDT [facility] Telephonic Outreach Provider Action/FYI CDM: CHF 11/14/23 Appt with [facility] 01/28/24 Called Pt, unable to leave?a message to verify symptom status and needs. Contacted for: Routine Telephonic Outreach Contact made with patient: No, unable to leave message. Will reattempt call Thomas Mcclendon RN January 28, 2024 5:27 PM documented in this encounterSelect [facility] History of Present illness Narrative* Thomas Mcclendon RN - 12/10/2023 12:02 PM EDT [facility] Telephonic Outreach Provider Action/FYI Chart Review 11/14/23 [facility] ED 12/10/23 Pt reports scratched his Right calf, developed Cellulitis, received IV Antibiotics in ED 11/14/23 Pt denies Right calf redness, swelling, drainage, or pain, he notes cellulitis cleared after IV andoral Atb. Pt denies CHF or other symptom concerns or needs. BP 130/60, Wt 212 lbs ADL, falls, goals, SDH updated Contacted for: Routine Telephonic Outreach Contact made with patient: Yes Patient identified by name and date of . Discussed care with patient Are you experiencing any new or worsening symptoms you need to talk about today? No Disease Specific Do you check your blood pressure at home? Yes, Enter readings: 130/60 Do you have new or worsening shortness of breath with activity? No Do you have new or worsening trouble breathing while lying flat? No Do you have new or worsening swelling of legs, feet or ankles? No Do you check your daily weight at home? Yes, Have you noticed a sudden gain in weight greater than three pounds in a day or three pounds in a week? No Based on custodian supervisor, the following disposition is advised: No symptoms or symptoms present, not severe. Routed to: No Action Needed VINCENT Education Provided this Outreach: No Thomas Mcclendon RN December 10, 2023 12:05 PM * Thomas Mcclendon RN - 12/09/2023 2:36 PM EDT CDM Telephonic Outreach Provider Action/FYI CDM: CHF Left a message to verify symptom status, instructed to contact PCP for condition changes and needs. Contacted for: Routine Telephonic Outreach Contact made with patient: No, left message. Thomas Mcclendon RN December 09, 2023 2:36 PM documented in this encounterSelect [facility] History of Present illness Narrative* Ronald Covington APRN.IRA - 12/04/2023 2:06 PM EDT SUBJECTIVE Kendrick Barraza is a 72 year old male here today for a check up on his medical problems. Chief Complaint Patient presents with: Recheck: was seen in [facility] ER 11/14/2023 for questionable cellulitis which was treated with cephalexin 500 mg four times a day. Discuss lab results completed 10/2023 HPI Kendrick Barraza is a 72 year old male. He is an established patient of Evie Grewal MD. He is heretoday for an ER follow up and 4 month follow up. He was seen in the ER at [facility] 11/13 for possible cellulitis. This has cleared up and resolved. He was treated with Keflex. He had labs done 10/2023 andwould like to review those. Lipid panel stable, did not tolerate statins. On Zetia. Remission from his cancer/the mets to lymphnodes. Sees Dr. Mistry as needed. Kendrick Barraza is a 72 year old male here today for a check up on his diabetes. He is compliant on taking his medications :Yes He has been checking fingerstick blood sugars: Yes His blood sugars have been controlled? Yes Denies difficulty with this skill. Any low blood sugar reactions? No Denies increased urinating, eating, and drinking. Most recent HbA1c tests were: Lab Results Component Value Date HBA1C 6.2 (H) 11/13/2023 HBA1C 6.0 (H) 07/01/2023 HBA1C 6.1 06/11/2023 His medications were reviewed today and his list is now up to date. Medications Current Outpatient Medications Medication Sig ezetimibe (ZETIA) 10 mg tablet Take 1 tablet by mouth once daily. ramipril (ALTACE) 10 mg capsule Take 1 capsule by mouth once daily. carvedilol (COREG) 12.5 mg tablet Take 1 tablet by mouth two times a day. metFORMIN ER (GLUCOPHAGE XR) 500 mg 24 hr tablet Take 4 tablets by mouth once daily. insulin glargine (L[employer]US SOLOSTAR U-100 INSULIN) 100 unit/mL (3 mL) Inject 5 Units subcutaneously daily at bedtime. (Adjust as indicated) Needs 1 pen a month so please fill 3 pens per 3 months. Give 5 pens if not able to split the box docusate sodium (COLACE) 100 mg capsule Take 200 mg by mouth three times daily as needed for constipation. insulin aspart U-100 ([employer]OLOG FLEXPEN U-100 INSULIN) 100 unit/mL (3 mL) Inject 10 Units subcutaneously three times daily before meals. As directed when eats meals Cholecalciferol, Vitamin D3, 125 mcg (5,000 unit) cap Take 1 capsule by mouth every other day. May switch to 2000 units daily blood sugar diagnostic (ONETOUCH ULTRA TEST) test strip Test blood sugar(s) 4 times daily. Dx: E11.65, DM. Insulin: Yes (Meals and bedtime--4 injections) aspirin, enteric coated (ASPIRIN, ENTERIC COATED) 81 mg EC tablet Take 1 tablet by mouth twice daily. ascorbic acid, vitamin C, (VITAMIN C) 500 mg tablet Take 1 tablet by mouth twice daily with meals for 26 doses. insulin needles, DISPOSABLE, (PEN NEEDLE) 31 gauge x 12/30 ndle Use one needle per dose. 4 per day. No current facility-administered medications for this visit. ALLERGIES Allergen Reactions Oxycodone Vomiting Ciprofloxacin Vomiting dizziness Crestor [Rosuvastat* Intolerance Severe myalgias; could not work because so severe Lipitor [Atorvastat* Other: See Comments Joint pain Pravachol [Pravasta* Intolerance myalgias Statins [Statins-Hm* Intolerance Muscle aches; so bad cannot move ACTIVE PROBLEM LIST Pad (Peripheral Artery Disease) ([facility]) - 08/20/2023 Obesity, Class I, Bmi 30-34.9 - 12/08/2022 Primary Osteoarthritis of Left Hip - 11/01/2021 Sebaceous Cyst - 05/21/2016 Hot Flashes - 12/27/2015 Metastatic Cancer to Intra-Abdominal Lymph Nodes ([facility]) - 03/06/2015 Elevated Psa - 12/27/2014 Prostate Cancer ([facility]) - 12/11/2014 Bph (Benign Prostatic Hyperplasia) - 12/11/2014 Statin Intolerance - 11/03/2013 Cva, Old, Cognitive Deficits - 09/15/2012 Chf (Congestive Heart Failure) ([facility]) - 12/22/2011 Cad (Coronary Artery Disease) - 12/22/2011 Controlled Type 2 Diabetes Mellitus With Diabetic Neuropathy, With Long-Term Current Use of Insulin([facility]) - 12/11/2011 Cll (Chronic Lymphocytic Leukemia) ([facility]) - 11/20/2011 Vitamin D Deficiency - 05/02/2011 Mixed Hyperlipidemia - 07/22/2006 Primary Hypertension - 07/15/2006 Comment: 10/21/2016: Home BP Cuff Validated. Home BP: 138/79 Office BP: 130/68 Social History Tobacco Use Smoking status: Never Smokeless tobacco: Never Vaping Use Vaping Use: Never used Substance Use Topics Alcohol use: No Drug use: No Review of Systems Constitutional: Negative. Respiratory: Negative. Cardiovascular: Negative. OBJECTIVE BP 130/68 Pulse 85 Wt 215 lb (97.5kg) SpO2 98% Physical Exam Vitals and nursing note reviewed. Constitutional: General: He is awake. He is not in acute distress. Appearance: Normal appearance. He is well-developed and well-groomed. He is not ill-appearing, toxic-appearing or diaphoretic. HENT: Head: Normocephalic. Right Ear: External ear normal. Left Ear: External ear normal. Nose: Nose normal. Eyes: General: Vision grossly intact. Conjunctiva/sclera: Conjunctivae normal. Pupils: Pupils are equal, round, and reactive to light. Neck: Vascular: No JVD. Trachea: Trachea normal. Cardiovascular: Rate and Rhythm: Normal rate and regular rhythm. Pulses: Normal pulses. Heart sounds: Normal heart sounds. No murmur heard. Pulmonary: Effort: Pulmonary effort is normal. No accessory muscle usage, prolonged expiration or respiratory distress. Breath sounds: Normal breath sounds. Musculoskeletal: Cervical back: Neck supple. Skin: General: Skin is warm and dry. Capillary Refill: Capillary refill takes less than 2 seconds. Neurological: General: No focal deficit present. Mental Status: He is alert and oriented to person, place, and time. Mental status is at baseline. Psychiatric: Attention and Perception: Attention and perception normal. Mood and Affect: Mood and affect normal. Speech: Speech normal. Behavior: Behavior normal. Behavior is cooperative. Thought Content: Thought content normal. Cognition and Memory: Cognition and memory normal. Judgment: Judgment normal. ASSESSMENT/PLAN: 1. Controlled type 2 diabetes mellitus with diabetic neuropathy, with long-term current use of insulin (HCC) - ICD9: 250.60, 357.2, V58.67, ICD10: E11.40, Z79.4 (primary diagnosis) - Controlled - Continue current medications - Counseled on healthy diet and regular exercise - Discussed need for and benefit of weight loss. BMI 31.75 kg/(m^2) - HEMOGLOBIN A1C 2. 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 3. Prostate cancer (HCC) - ICD9: 185, ICD10: C61 In remission. 4. Prostate cancer screening - ICD9: V76.44, ICD10: Z12.5 - PSA/PROSTATE SPECIFIC ANTIGEN SCREENING 5. Chronic congestive heart failure, unspecified heart failure type (HCC) - ICD9: 428.0, ICD10: I50.9 Stable, no issues with swelling, chest pain, chest tightness or shortness of breath. 6. Cellulitis of lower extremity, unspecified laterality - ICD9: 682.6, ICD10: L03.119 Resolved. 7. Screening for lipid disorders - ICD9: V77.91, ICD10: Z13.220 - LIPID PANEL BASIC 8. Vitamin D deficiency - ICD9: 268.9, ICD10: E55.9 - VITAMIN D 25 HYDROXY 9. Encounter for therapeutic drug monitoring - ICD9: V58.83, ICD10: Z51.81 - COMPLETE BLOOD COUNT AND DIFFERENTIAL - COMPREHENSIVE METABOLIC PANEL Medical Decision Making: Problems: Moderate: 2+ stable chronic illnesses Data: Unique test(s) ordered: 3+ Medical Decision Making Level: 4 - Moderate Portions of this note have been entered by ancillary staff. I have reviewed and when necessary edited, so that they are an adequate record of my encounter with this patient Please note that parts of this document were created using voice recognition software and therefore may contain grammatical errors. Patient verbalizes understanding of instructions from today's visit and in agreement with treatmentplan. Questions answered. Agrees to call the office if questions, concerns of issues with acute symptoms not improving or if they worsen. See diagnoses and orders for additional plan(s). Allergies and medications were reviewed, list was updated, and refills given if needed. Past medical, surgical, social, and family history reviewed and updated as appropriate. Encouraged proper diet & exercise as well as compliance with taking medications. Age- appropriate health preventative measures were discussed. Return if symptoms worsen or fail to improve, for Keep next scheduled appointment.. Ronald Covington APRN-IRA documented in this encounter[facility] History of Past illness Narrative* Problem Noted Date Diagnosed Date Resolved Date Stage 3a chronic kidney disease 01/16/2023 08/20/2023 Uncontrolled type 2 diabetes mellitus with hyperglycemia 01/19/2019 11/01/2021 Last Assessment & Plan: Assessment: on insulin, last A1C 6.5 on 10/19/2021, home glucose often under 100 in AM per patient Morbid obesity 09/30/2017 05/01/2023 CVA (cerebral infarction) 12/22/2011 Pleural effusion 11/19/2011 12/11/2014 Overview: Small lft pleural effusion Noted on chest x-ray [facility] On 11/13/11.blunting of the lft costophrenic andle. Type II or unspecified type diabetes mellitus without mention of complication, not stated as uncontrolled 07/15/2006 12/22/2011 BMI 39.0-39.9,adult 04/16/20 17 documented as of this encounter (statuses as of 12/04/2023) [facility] Miscellaneous Notes* Telephone Encounter - Sheryl Rothman LPN - 11/06/2023 12:03 PM EDT Form faxed back on 11/03/23. Will fax again. * Telephone Encounter - Karin Christianson RN - 11/05/2023 9:22 AM EDT Lisa with [facility] calls to verify that provider's office received CMN form for diabetic testing strips. Faxed x 2. Forms need faxed back to [phone]. Lisa reports patient is down to 1 test strip. Karin Christianson RN documented in this encounterSelect [facility] [place] History of Past illness Narrative* Problem Noted Date Diagnosed Date Resolved Date Stage 3a chronic kidney disease 01/16/2023 08/20/2023 Uncontrolled type 2 diabetes mellitus with hyperglycemia 01/19/2019 11/01/2021 Last Assessment & Plan: Assessment: on insulin, last A1C 6.5 on 10/19/2021, home glucose often under 100 in AM per patient Morbid obesity 09/30/2017 05/01/2023 CVA (cerebral infarction) 12/22/2011 Pleural effusion 11/19/2011 12/11/2014 Overview: Small lft pleural effusion Noted on chest x-ray [facility] On 11/13/11.blunting of the lft costophrenic andle. Type II or unspecified type diabetes mellitus without mention of complication, not stated as uncontrolled 07/15/2006 12/22/2011 BMI 39.0-39.9,adult 04/16/20 17 documented as of this encounter (statuses as of 11/06/2023) [facility] History of Present illness Narrative* Thomas Mcclendon RN - 11/05/2023 5:26 PM EDT CDM Telephonic Outreach Provider Action/FYI CDM: CHF Left a message to verify symptom status and needs. Instructed to call PCP with any symptom or condition changes. Contacted for: Routine Telephonic Outreach Contact made with patient: No, left message. Thomas Mcclendon RN November 05, 2023 5:26 PM * Thomas Mcclendon RN - 11/04/2023 9:42 AM EDT CDM Telephonic Outreach Provider Action/FYI CDM: CHF Left a message to verify symptom status and needs. Instructed to call PCP with any symptom or condition changes. Contacted for: Routine Telephonic Outreach Contact made with patient: No, left message. Thomas Mcclendon RN November 04, 2023 10:52 AM documented in this encounterSelect [facility] History of Past illness Narrative* Problem Noted Date Diagnosed Date Resolved Date Stage 3a chronic kidney disease 01/16/2023 08/20/2023 Uncontrolled type 2 diabetes mellitus with hyperglycemia 01/19/2019 11/01/2021 Last Assessment & Plan: Assessment: on insulin, last A1C 6.5 on 10/19/2021, home glucose often under 100 in AM per patient Morbid obesity 09/30/2017 05/01/2023 CVA (cerebral infarction) 12/22/2011 Pleural effusion 11/19/2011 12/11/2014 Overview: Small lft pleural effusion Noted on chest x-ray [facility] On 11/13/11.blunting of the lft costophrenic andle. Type II or unspecified type diabetes mellitus without mention of complication, not stated as uncontrolled 07/15/2006 12/22/2011 BMI 39.0-39.9,adult 04/16/20 17 documented as of this encounter (statuses as of 11/06/2023) [facility] Miscellaneous Notes* Telephone Encounter - Lauren Latif LPN - 11/02/2023 12:23 PM EDT Ilene with [facility] calls to report that Medicare requires a new rx every 6 months even if it is written for 1 year. Patient has been identified by name and date of : Yes, Provider [facility] phones for refill(s): Requested Prescriptions Pending Prescriptions Disp Refills blood sugar diagnostic (ONETOUCH ULTRA TEST) test strip 300 Strip 1 Sig: Test blood sugar(s) 4 times daily. Dx: E11.65, DM. Insulin: Yes (Meals and bedtime--4 injections) Date of last office visit in primary care: 10/09/23 Date of next office visit in primary care: 12/04/23 Please advise. Thank you. Lauren Latif LPN. documented in this encounterSelect [facility] [place] History of Past illness Narrative* Problem Noted Date Diagnosed Date Resolved Date Stage 3a chronic kidney disease 01/16/2023 08/20/2023 Uncontrolled type 2 diabetes mellitus with hyperglycemia 01/19/2019 11/01/2021 Last Assessment & Plan: Assessment: on insulin, last A1C 6.5 on 10/19/2021, home glucose often under 100 in AM per patient Morbid obesity 09/30/2017 05/01/2023 CVA (cerebral infarction) 12/22/2011 Pleural effusion 11/19/2011 12/11/2014 Overview: Small lft pleural effusion Noted on chest x-ray [facility] On 11/13/11.blunting of the lft costophrenic andle. Type II or unspecified type diabetes mellitus without mention of complication, not stated as uncontrolled 07/15/2006 12/22/2011 BMI 39.0-39.9,adult 04/16/20 17 documented as of this encounter (statuses as of 11/03/2023) [facility] History of Present illness Narrative* Papa Gar - 10/16/2023 2:49 PM EST Last saw pcp: 10/09/23 Subjective: Patient presents to clinic c/o painful toenails. They state that the nails are especially painful with shoe gear and pressure. Patient states that nails 1-5 b/l are painful. Patient admits to being diabetic and states that their blood sugar was 105 mg/dL this AM. No other pedal complaints at this time. Patient states no change in medications or medical history since last visit. Objective: Patient presents to clinic ambulating in diabetic shoes Vasc: DP and PT pulses are faintly palpable bilateral. CFT is less than 5 seconds bilateral. Skin temperature is warm to cool proximal to distal bilateral. There is moderate edema or varicosities noted. Neuro: Protective sensation is decresaed to the foot and toes when tested with the 5.07 SWM bilateral. Vibratory sensation is absent at the hallux IPJ bilateral. The hallux is downgoing bilateral. Derm: Nails 1-5 b/l are painful, discolored-yellow, thick, crumbly, dystrophic and with subungal debris. Skin is of normal turgor, texture and hair growth is absent bilateral. There are no hyperkeratosis, ulcerations, scars, verruca or other lesions noted. Ortho: Muscle strength is 5/5 for all pedal groups tested. Ankle joint DF is decreased with the knee extended with no pain or crepitus noted. 1st MPJ ROM is decreased bilateral. Assessment: (B35.) Onychomycosis (primary encounter diagnosis) (M79.675) Pain in toe of left foot (M79.674) Pain in toe of right foot (E11.42) Diabetic polyneuropathy associated with type 2 diabetes mellitus (HCC) (I73.9) PAD (peripheral artery disease) ([facility]) Plan: Patient was seen and evaluated. Nails 1-5 bilateral were debrided in length and thickness. Patient was instructed on the continued importance of diabetic foot care along with proper diet and keeping their blood sugar under control to prevent complications. Patient is to RTC in 3-4 months. Papa Gar DPM * Honey Haney LPN - 10/16/2023 2:29 PM EST AMB ROOMING INTAKE FLOWSHEET DATA Patient presents with: Left Foot - Established Patient, Diabetic Foot Care Right Foot - Established Patient, Diabetic Foot Care Honey Haney LPN documented in this encounterSelect [facility] Instructions* Patient Instructions* Papa Gar - 10/16/2023 2:49 PM EST Diabetes Foot Care Instructions When you have diabetes, proper foot care is very important. Poor foot care may lead to amputation of a foot or leg. As a person with diabetes, you are more vulnerable to foot problems, because diabetes can damage your nerves and reduce blood flow to your feet. Here are some diabetes foot care tips to follow: Wash and Dry Your Feet Daily Use mild soaps Use warm water Pat your skin dry; do not rub. Thoroughly dry your feet. After washing, use lotion on your feet to prevent cracking. Do not put lotion between your toes. Examine Your Feet Each Day Check the tops and bottoms of your feet. Have someone else look at your feet if you cannot see them. Check for dry, cracked skin. Look for blisters, cuts, scratches, or other sores. Check for redness, increased warmth, or tenderness when touching any area of your feet. Check for ingrown toenails, corns, and calluses. If you get a blister or sore from your shoes, do not pop it. Apply a bandage and wear a differentpair of shoes. Take Care of Your Toenails Cut toenails after bathing, when they are soft. Cut toenails straight across and smooth with a nail file. Avoid cutting into the corners of toes. Do not cut cuticles. If you have neuropathy (or decreased sensation in your feet) a passport support associate should always cut your toenails. Be Careful When Exercising Walk and exercise in comfortable shoes. Do not exercise when you have open sores on your feet. Protect Your Feet With Shoes and Socks Never go barefoot. Always protect your feet by wearing shoes or hard-soled slippers or footwear. Avoid shoes with high heels and pointed toes. Avoid shoes that expose your toes or heels (such as open-toed shoes or sandals). These types of shoes increase your risk for injury and potential infections. Try on new footwear with the type of socks you usually wear. Do not wear new shoes for more than an hour at a time. Change your socks daily. Look and feel inside your shoes before putting them on to make sure there are no foreign objects orrough areas. Avoid tight socks. Wear natural-fiber socks (cotton, wool, or a cotton-wool blend). Wear special shoes if your health care provider recommends them. Wear shoes/boots that will protect your feet from various weather conditions (cold, moisture, etc.). Make sure your shoes fit properly. If you have neuropathy (nerve damage), you may not notice that your shoes are too tight. Perform the footwear test described below. Footwear Test Use this simple test to see if your shoes fit correctly: Stand on a piece of paper. (Make sure you are standing and not sitting, because your foot changes shape when you stand.) Trace the outline of your foot. Trace the outline of your shoe. Compare the tracings: Is the shoe too narrow? Is your foot crammed into the shoe? The shoe should be at least 1/2 inch longer than your longest toe and as wide as your foot. Proper Shoe Choices The following types of shoes are best for people with diabetes Closed toes and heels Leather uppers without a seam inside At least 1/2 inch extra space at the end of your longest toe Inside of shoe should be soft with no rough areas Outer sole should be made of stiff material Shoes should be at least as wide as your feet Tips for Foot Care in Diabetes Don't wait to treat a minor foot problem if you have diabetes. Follow your health care provider's guidelines and first aid guidelines. Report foot injuries and infections to your health care provider immediately. Check water temperature with your elbow, not your foot. Do not use a heating pad on your feet. Do not cross your legs. Do not self-treat your corns, calluses, or other foot problems. Go to your health care provider or passport support associate to treat these conditions. documented in this encounterSelect [facility] History of Past illness Narrative* Problem Noted Date Diagnosed Date Resolved Date Stage 3a chronic kidney disease 01/16/2023 08/20/2023 Uncontrolled type 2 diabetes mellitus with hyperglycemia 01/19/2019 11/01/2021 Last Assessment & Plan: Assessment: on insulin, last A1C 6.5 on 10/19/2021, home glucose often under 100 in AM per patient Morbid obesity 09/30/2017 05/01/2023 CVA (cerebral infarction) 12/22/2011 Pleural effusion 11/19/2011 12/11/2014 Overview: Small lft pleural effusion Noted on chest x-ray [facility] On 11/13/11.blunting of the lft costophrenic andle. Type II or unspecified type diabetes mellitus without mention of complication, not stated as uncontrolled 07/15/2006 12/22/2011 BMI 39.0-39.9,adult 04/16/20 17 documented as of this encounter (statuses as of 10/16/2023) [facility] History of Present illness Narrative* Evie Grweal MD - 10/09/2023 11:21 AM EST This note was created using NoteWriter. Subjective Kendrick Barraza is a 72 year old male. Patient presents with: ER F/U: ABD pain and elevated BP- EMS stated they believed patient in A-FIB however ER MD didn't think this SUBJECTIVE: Kendrick Barraza is a 72 year old year old gentleman here today for ER follow up appointment for reviewof medical conditions. Reviewed ER report. Had sudden onset vomiting and abdominal pain. [place] like a lot of pressure building up in upper abdomen/epigastric area. [place] like coming down with flu bug. No problems with diarrhea or constipation. No fevers or chills. Had just 3 episodes of vomiting that hit soon after lunch. Went to ER after 6PM. Vomiting what had for lunch since was just an hour or so after eating. Had eaten cornflake cereal and milk. [place] nauseous so decided to eat something light just in case. Breakfast was coffee and milk. Did not eat anything solid. No problems N/V/D the day prior. No abdominal pain either. No chest pain. Take pills with food, not on empty stomach. PAST MEDICAL HISTORY Diagnosis Date CAD (coronary artery disease) Stents x 4 CHF (congestive heart failure) ([facility]) 12/22/2011 Class 1 obesity due to excess calories with body mass index (BMI) of 34.0 to 34.9 in adult 09/30/2017 CLL (chronic lymphocytic leukemia) ([facility]) 11/20/2011 cva 10/2011 left pontine infarct Diabetes mellitus without mention of complication Diabetes mellitus Diverticulosis of colon (without mention of hemorrhage) Elevated PSA 12/11/2014 HYPERLIPIDEMIA NEC/NOS 07/22/2006 HYPERTENSION NOS 07/15/2006 Obesity Pleural effusion 11/19/2011 Small lft pleural effusion Noted on chest x-ray [facility] On 11/13/11.blunting of the lft costophrenic andle. PVC (premature ventricular contraction) Uncontrolled type 2 diabetes mellitus with hyperglycemia ([facility]) 01/19/2019 Current Outpatient Medications Medication Sig ezetimibe (ZETIA) 10 mg tablet Take 1 tablet by mouth once daily. ramipril (ALTACE) 10 mg capsule Take 1 capsule by mouth once daily. carvedilol (COREG) 12.5 mg tablet Take 1 tablet by mouth two times a day. metFORMIN ER (GLUCOPHAGE XR) 500 mg 24 hr tablet Take 4 tablets by mouth once daily. insulin glargine (LANTUS SOLOSTAR U-100 INSULIN) 100 unit/mL (3 mL) Inject 5 Units subcutaneously daily at bedtime. (Adjust as indicated) Needs 1 pen a month so please fill 3 pens per 3 months. Give 5 pens if not able to split the box docusate sodium (COLACE) 100 mg capsule Take 200 mg by mouth three times daily as needed for constipation. insulin aspart U-100 (NOVOLOG FLEXPEN U-100 INSULIN) 100 unit/mL (3 mL) Inject 10 Units subcutaneously three times daily before meals. As directed when eats meals blood sugar diagnostic (Advanced Surgical ConceptsTOUCH ULTRA TEST) test strip Test blood sugar(s) 4 times daily. Dx: E11.65, DM. Insulin: Yes (Meals and bedtime--4 injections) Cholecalciferol, Vitamin D3, 125 mcg (5,000 unit) cap Take 1 capsule by mouth every other day. May switch to 2000 units daily insulin needles, DISPOSABLE, (PEN NEEDLE) 31 gauge x 12/30 ndle Use one needle per dose. 4 per day. aspirin, enteric coated (ASPIRIN, ENTERIC COATED) 81 mg EC tablet Take 1 tablet by mouth twice daily. ascorbic acid, vitamin C, (VITAMIN C) 500 mg tablet Take 1 tablet by mouth twice daily with meals for 26 doses. No current facility-administered medications for this visit. Review of Systems Objective BP 138/70 Pulse 76 Resp 16 Wt 96.1 kg (211 lb 12.8 oz) SpO2 97% BMI (P) 32.68 kg/m Last 5 Encounter Wt Readings: Date: Wt: 10/09/2023 96.1 kg (211 lb 12.8 oz) 07/18/2023 93.7 kg (206 lb 8 oz) 05/01/2023 95.3 kg (210 lb) 01/16/2023 95.7 kg (211 lb) 08/01/2022 102.5 kg (226 lb) No waist measurement recorded Estimated body mass index is 32.68 kg/m (pended) as calculated from the following: Height as of 10/02/23: (P) 171.5 cm (5' 7.5). Weight as of this encounter: 96.1 kg (211 lb 12.8 oz). Last 5 Encounter BP Readings: Date: BP: 10/09/2023 138/70 07/18/2023 114/74 05/01/2023 128/78 01/16/2023 126/72 08/01/2022 130/74 Physical Exam Vitals reviewed. Constitutional: Appearance: Normal appearance. Eyes: Conjunctiva/sclera: Conjunctivae normal. Cardiovascular: Rate and Rhythm: Normal rate and regular rhythm. Heart sounds: Normal heart sounds. Pulmonary: Effort: Pulmonary effort is normal. Breath sounds: Normal breath sounds. Abdominal: General: Abdomen is flat. Bowel sounds are normal. There is no distension. Palpations: Abdomen is soft. There is no mass. Tenderness: There is no abdominal tenderness. There is no guarding or rebound. Hernia: No hernia is present. Skin: General: Skin is warm and dry. Neurological: General: No focal deficit present. Mental Status: He is alert and oriented to person, place, and time. Psychiatric: Mood and Affect: Mood normal. Behavior: Behavior normal. Thought Content: Thought content normal. Judgment: Judgment normal. Assessment and Plan Encounter Diagnosis ICD-10-CM 1. Nausea and vomiting, unspecified vomiting type R11.2 Resolved after vomiting 3 times. Not a common problem for him 2. Epigastric pain R10.13 Associated with episode of nausea, and vomiting 3. Essential hypertension, benign I10 Was high in ER. Back to baseline now. 110s to 130s for SBP. Stay on same meds Resolved and no problems with eating now. Will monitor symptoms. Further evaluation if recurs to evaluate for gastritis/PUD. For now sounds like gastroenteritis/flu bug that hit out of the blue and resolved. Further evaluation and treatment as indicated. States that EMS told him that had episode of a fib. Went back to NSR or had NSR with PACs as noted by Dr. Roper in ER note. I spent a total of 23 minutes on the date of the service which included [id number] patient care, completing clinical documentation, obtaining and/or reviewing separately obtained history, performing a medically appropriate examination, counseling and educating the patient/family/caregiver, ordering medications, tests, or procedures, independently interpreting results (not separately reported), and communicating results to the patient/family/caregiver . documented in this encounterSelect [facility] [place] Instructions* Patient Instructions* Evie Grewal MD - 10/02/2023 5:54 PM EST Screening schedule The following prevention plan is recommended: Advance Directive Discussion due on 08/17/2023 Depression Assessment due on 08/17/2023 WHAT YOU CAN DO TO PREVENT FALLS Many falls can be prevented. By making some changes, you can lower your chances of falling. Four things YOU can do to prevent falls for you* and your caregiver 1. Begin a regular exercise program Exercise is one of the most important ways to lower your chances of falling. It makes you stronger and helps you feel better. Exercises that improve balance and coordination (like Junior Chi) are the most helpful. Lack of exercise leads to weakness and increases your chances of falling. Ask your doctor or health care provider about the best type of exercise program for you. 2. Have your health care provider review your medicines Have your doctor or pharmacist review all the medicines you take, even [id number] medicines. As you get older, the way medicines work in your body can change. Some medicines, or combinations of medicines, can make you sleepy or dizzy andcan cause you to fall. 3. Have your vision checked Have your eyes checked by an eye doctor at least once a year. You may be wearing the wrong glasses or have a condition like glaucoma or cataracts that limits your vision. Poor vision can increase your chances of falling. 4. Make your home safer About half of all falls happen at home. To make your home safer: Remove things you can trip over (like papers, books, clothes, and shoes) from stairs and places where you walk. Remove small throw rugs or use double-sided tape to keep the rugs from slipping. Keep items you use often in cabinets you can reach easily without using a step stool. Have grab bars put in next to your toilet and in the tub or shower. Use non-slip mats in the bathtub and on shower floors. Improve the lighting in your home. As you get older, you need brighter lights to see well. Hang light-weight curtains or shades to reduce glare. Have handrails and lights put in on all staircases. Wear shoes both inside and outside the house. Avoid going barefoot or wearing slippers. For more information, contact: Centers for Disease Control and Prevention www.cdc.gov/injury * This information may not apply if you have certain medical conditions. documented in this encounterSelect [facility] [place] History of Present illness Narrative* Evie Grewal MD - 10/02/2023 5:37 PM EST Kendrick Barraza is a 72 year old male here for a Medicare wellness visit. Medicare Health Risk Assessment General Health Very good Exercise: Minutes/Day 20 min Exercise: Days/Week 7 days Alcohol: Daily Use Never Alcohol: Drinks/Day Patient does not drink Alcohol: 6 or more drinks Never Feel off balance No Concerns: Teeth/Dentures No Concerns: Sexual function No Troubled by feelings None of the above Frequency: Eating healthy diet Nearly every day ADLs requiring help None of the above Safety precautions in home/vehicle Yes Smoke, vape, chews tobacco No Difficulty hearing No Difficulty seeing No Current Providers Specialists: I have reviewed specialist-related care of the patient in the medical record. Outside specialists seen: [facility] (Nadia Joya) , Dr. Mcadams (general surgery--hernia surgery) Medical/Family history review Reviewed and updated problem list, medical/surgical/family/social history, medications, and allergies. Opioid use review Opioid Medications (last 90 days) Some values may be hidden. Unless noted otherwise, only the newest values recorded on each date aredisplayed. Opioid Medications No data to display. Depression screening Depression Screening PHQ-2 Score OTTO-2 Total Score 11/07/2022 1 - Depression screening tool completed and reviewed. Based on score and interview, patient is not at risk for depression. Screening tool discussed with patient, and I recommended no further interventionat this time. Cognitive screening-deferred Functional Observation Was the patient's Timed Up & Go test unsteady or ? 12 seconds? No Advance Care Planning Surrogate decision maker and/or advance care plan documented Does not have LW or HCDPOA but is surrogate decision maker Measurements 10/02/23 1652 BP: (P) 162/70 BP Site: (P) Left Arm BP Position: (P) Sitting BP Cuff Size: (P) Large Adult Pulse: (P) 84 Weight: (P) 96.6 kg (213 lb) Height: (P) 171.5 cm (5' 7.5) Additional screenings: No results found. Sees eye doctor for routine vision screening Assessment/Plan Medicare annual wellness visit, subsequent (Z00.00) - Counseled on healthy diet and regular exercise - Fall avoidance information provided - Personalized prevention plan provided Additional Concerns The following concerns were also discussed with the patient: HISTORY Kendrick Barraza is a 72 year old gentleman here for yearly exam and follow up appointment. Gets around with cane well. Diabetes: Had more lows in August with some 59 to 99. One 59, one 70, a few 80s, the rest 90s when under 100. Backed onff on meal time insulin since not able to eat more. September running 92 up to 187, Most in 100 to 120. Stable on current meds. PAST MEDICAL HISTORY Diagnosis Date CAD (coronary artery disease) Stents x 4 CHF (congestive heart failure) (HCC) 12/22/2011 Class 1 obesity due to excess calories with body mass index (BMI) of 34.0 to 34.9 in adult 09/30/2017 CLL (chronic lymphocytic leukemia) ([facility]) 11/20/2011 cva 10/2011 left pontine infarct Diabetes mellitus without mention of complication Diabetes mellitus Diverticulosis of colon (without mention of hemorrhage) Elevated PSA 12/11/2014 HYPERLIPIDEMIA NEC/NOS 07/22/2006 HYPERTENSION NOS 07/15/2006 Obesity Pleural effusion 11/19/2011 Small lft pleural effusion Noted on chest x-ray [facility] On 11/13/11.blunting of the lft costophrenic andle. PVC (premature ventricular contraction) Uncontrolled type 2 diabetes mellitus with hyperglycemia ([facility]) 01/19/2019 Current Outpatient Medications Medication Sig ramipril (ALTACE) 10 mg capsule Take 1 capsule by mouth once daily. ezetimibe (ZETIA) 10 mg tablet Take 1 tablet by mouth once daily. carvedilol (COREG) 12.5 mg tablet Take 1 tablet by mouth two times a day. metFORMIN ER (GLUCOPHAGE XR) 500 mg 24 hr tablet Take 4 tablets by mouth once daily. insulin glargine (LANTUS SOLOSTAR U-100 INSULIN) 100 unit/mL (3 mL) Inject 5 Units subcutaneously daily at bedtime. (Adjust as indicated) Needs 1 pen a month so please fill 3 pens per 3 months. Give 5 pens if not able to split the box docusate sodium (COLACE) 100 mg capsule Take 200 mg by mouth three times daily as needed for constipation. insulin aspart U-100 (NOVOLOG FLEXPEN U-100 INSULIN) 100 unit/mL (3 mL) Inject 10 Units subcutaneously three times daily before meals. As directed when eats meals blood sugar diagnostic (Advanced Surgical ConceptsTOUCH ULTRA TEST) test strip Test blood sugar(s) 4 times daily. Dx: E11.65, DM. Insulin: Yes (Meals and bedtime--4 injections) aspirin, enteric coated (ASPIRIN, ENTERIC COATED) 81 mg EC tablet Take 1 tablet by mouth twice daily. ascorbic acid, vitamin C, (VITAMIN C) 500 mg tablet Take 1 tablet by mouth twice daily with meals for 26 doses. Cholecalciferol, Vitamin D3, 125 mcg (5,000 unit) cap Take 1 capsule by mouth every other day. May switch to 2000 units daily insulin needles, DISPOSABLE, (PEN NEEDLE) 31 gauge x 12/30 ndle Use one needle per dose. 4 per day. No current facility-administered medications for this visit. ALLERGIES Allergen Reactions Oxycodone Vomiting Ciprofloxacin Vomiting dizziness Crestor [Rosuvastat* Intolerance Severe myalgias; could not work because so severe Lipitor [Atorvastat* Other: See Comments Joint pain Pravachol [Pravasta* Intolerance myalgias Statins [Statins-Hm* Intolerance Muscle aches; so bad cannot move FAMILY HISTORY Problem Relation Age of Onset Stroke Mother Heart Mother congestive heart failure Heart Father Prostate Cancer Brother Prostate Cancer Brother Prostate Cancer Paternal Uncle Prostate Cancer Paternal Grandfather ? other (Other) Other 70 enlarged prostate Social History Tobacco Use Smoking status: Never Smokeless tobacco: Never Vaping Use Vaping Use: Never used Substance Use Topics Alcohol use: No Drug use: No PHYSICAL EXAM BP (P) 162/70 (BP Site: Left Arm, BP Position: Sitting, BP Cuff Size: Large Adult) Pulse (P) 84 Ht (P) 171.5 cm (5' 7.5) Wt (P) 96.6 kg (213 lb) BMI (P) 32.87 kg/m Last 4 Encounter Wt Readings: Date: Wt: 07/18/2023 93.7 kg (206 lb 8 oz) 05/01/2023 95.3 kg (210 lb) 01/16/2023 95.7 kg (211 lb) 08/01/2022 102.5 kg (226 lb) No waist measurement recorded Estimated body mass index is 32.87 kg/m (pended) as calculated from the following: Height as of this encounter: (P) 171.5 cm (5' 7.5). Weight as of this encounter: (P) 96.6 kg (213 lb). Last 4 Encounter BP Readings: Date: BP: 07/18/2023 114/74 05/01/2023 128/78 01/16/2023 126/72 08/01/2022 130/74 GENERAL: well appearing, alert, in no acute distress and ambulates with cane CARDIOVASCULAR: regular rate and rhythm. No murmur, rubs or gallops. PULMONARY: clear to auscultation, no wheezing, rhonchi, or crackles ABDOMEN: soft, non-tender, non-distended, no masses or organomegaly EXTREMITY: bilateral edema - trace on right, 1+ left lower leg Last labs done June. Hemoglobin A1C Date Value 07/01/2023 6.0 % 06/11/2023 6.1 12/19/2022 6.2 % 07/12/2022 6.0 % 04/10/2022 7.0 % 01/04/2022 6.2 % 04/13/2021 6.5 % 12/08/2020 7.0 % 08/16/2020 7.2 % 05/17/2020 7.0 % 02/02/2020 7.3 % Hemoglobin A1C (POCT) (%) Date Value 07/26/2021 6.4 Encounter Diagnosis ICD-10-CM 1. Medicare annual wellness visit, subsequent Z00.00 2. Controlled type 2 diabetes mellitus with diabetic neuropathy, with long-term current use of insulin (HCC) E11.40 Z79.4 Overall well controlled. Continue present management 3. Mixed hyperlipidemia E78.2 ezetimibe (ZETIA) 10 mg tablet Stable on meds. No changes. Labs as ordered 4. Essential hypertension, benign I10 BP running high today. Will stay on same mesd and recheck. Adjust if not getting back under good control Above issues addressed with patient. Patient involved in shared decision making for management of medical issues. History and medications reviewed. Epic updated as needed Refills and/or prescriptions taken care of and meds adjusted as indicated after reviewed history, exam and labs. Health Maintenance reviewed. Updated record and/or ordered tests as recorded. Encouraged on efforts at healthy diet and regular exercise and adequate sleep. Evie Grewal MD documented in this encounterSelect [facility] [place] History of Present illness Narrative* Thomas Mcclendon RN - 09/29/2023 2:47 PM EST CDM Telephonic Outreach Provider Action/FYI Routed updates o Dr. Grewal Pt reports recent intermittent episodes of low blood sugars, he notes drinks milk which brings up Bs by 20-30 points, Instructed on treatment for Low Blood sugars, Pt verbalize understanding, Pt reports will take his BS logs with him to 10/02/[address] Lucrecia VARGAS's , Falls, Goals updated, SD[facility] Food, Transportation updated Contacted for: Routine Telephonic Outreach Contact made with patient: Yes Patient identified by name and date of . Discussed care with patient Are you experiencing any new or worsening symptoms you need to talk about today? No Disease Specific Do you check your blood pressure at home? Yes, Enter readings: Not available Do you have new or worsening shortness of breath with activity? No Do you have new or worsening trouble breathing while lying flat? No Do you have new or worsening swelling of legs, feet or ankles? No Do you check your daily weight at home? No Based on custodian supervisor, the following disposition is advised: No symptoms or symptoms present, not severe. Routed to: No Action Needed VINCENT Education Provided this Outreach: Thomas Mcclendon RN September 29, 2023 3:22 PM documented in this encounterSelect Medical [facility] [place]-13-[facility] History of Past illness Narrative* Problem Noted Date Diagnosed Date Resolved Date Stage 3a chronic kidney disease 01/16/2023 08/20/2023 Uncontrolled type 2 diabetes mellitus with hyperglycemia 01/19/2019 11/01/2021 Last Assessment & Plan: Assessment: on insulin, last A1C 6.5 on 10/19/2021, home glucose often under 100 in AM per patient Morbid obesity 09/30/2017 05/01/2023 CVA (cerebral infarction) 12/22/2011 Pleural effusion 11/19/2011 12/11/2014 Overview: Small lft pleural effusion Noted on chest x-ray [facility] On 11/13/11.blunting of the lft costophrenic andle. Type II or unspecified type diabetes mellitus without mention of complication, not stated as uncontrolled 07/15/2006 12/22/2011 BMI 39.0-39.9,adult 04/16/20 17 documented as of this encounter (statuses as of 09/29/2023) [facility] [place] History of Present illness Narrative* Thomas Mcclendon RN - 07/20/2023 3:43 PM EST CDM Telephonic Outreach Provider Action/FYI CDM: CHF Pt denies symptom changes Pt denies pain from recent Hernia repairs. Pt reports eating and hydrating well, denies needs or concerns. Contacted for: Routine Telephonic Outreach Contact made with patient: Yes Patient identified by name and date of . Discussed care with patient Are you experiencing any new or worsening symptoms you need to talk about today? No Disease Specific Do you check your blood pressure at home? Yes, Enter readings: OV BP 114/60 Do you have new or worsening shortness of breath with activity? No Do you have new or worsening trouble breathing while lying flat? No Do you have new or worsening swelling of legs, feet or ankles? No Do you check your daily weight at home? Yes, Have you noticed a sudden gain in weight greater than three pounds in a day or three pounds in a week? No Based on custodian supervisor, the following disposition is advised: No symptoms or symptoms present, not severe. Routed to: No Action Needed VINCENT Education Provided this Outreach: No Thomas Mcclendon RN July 20, 2023 3:52 PM documented in this encounterSelect Medical [facility] [place]12-01-2023 Instructions* Patient Instructions* Papa Gar - 07/17/2023 11:43 AM EST Diabetes Foot Care Instructions When you have diabetes, proper foot care is very important. Poor foot care may lead to amputation of a foot or leg. As a person with diabetes, you are more vulnerable to foot problems, because diabetes can damage your nerves and reduce blood flow to your feet. Here are some diabetes foot care tips to follow: Wash and Dry Your Feet Daily Use mild soaps Use warm water Pat your skin dry; do not rub. Thoroughly dry your feet. After washing, use lotion on your feet to prevent cracking. Do not put lotion between your toes. Examine Your Feet Each Day Check the tops and bottoms of your feet. Have someone else look at your feet if you cannot see them. Check for dry, cracked skin. Look for blisters, cuts, scratches, or other sores. Check for redness, increased warmth, or tenderness when touching any area of your feet. Check for ingrown toenails, corns, and calluses. If you get a blister or sore from your shoes, do not pop it. Apply a bandage and wear a differentpair of shoes. Take Care of Your Toenails Cut toenails after bathing, when they are soft. Cut toenails straight across and smooth with a nail file. Avoid cutting into the corners of toes. Do not cut cuticles. If you have neuropathy (or decreased sensation in your feet) a passport support associate should always cut your toenails. Be Careful When Exercising Walk and exercise in comfortable shoes. Do not exercise when you have open sores on your feet. Protect Your Feet With Shoes and Socks Never go barefoot. Always protect your feet by wearing shoes or hard-soled slippers or footwear. Avoid shoes with high heels and pointed toes. Avoid shoes that expose your toes or heels (such as open-toed shoes or sandals). These types of shoes increase your risk for injury and potential infections. Try on new footwear with the type of socks you usually wear. Do not wear new shoes for more than an hour at a time. Change your socks daily. Look and feel inside your shoes before putting them on to make sure there are no foreign objects orrough areas. Avoid tight socks. Wear natural-fiber socks (cotton, wool, or a cotton-wool blend). Wear special shoes if your health care provider recommends them. Wear shoes/boots that will protect your feet from various weather conditions (cold, moisture, etc.). Make sure your shoes fit properly. If you have neuropathy (nerve damage), you may not notice that your shoes are too tight. Perform the footwear test described below. Footwear Test Use this simple test to see if your shoes fit correctly: Stand on a piece of paper. (Make sure you are standing and not sitting, because your foot changes shape when you stand.) Trace the outline of your foot. Trace the outline of your shoe. Compare the tracings: Is the shoe too narrow? Is your foot crammed into the shoe? The shoe should be at least 1/2 inch longer than your longest toe and as wide as your foot. Proper Shoe Choices The following types of shoes are best for people with diabetes Closed toes and heels Leather uppers without a seam inside At least 1/2 inch extra space at the end of your longest toe Inside of shoe should be soft with no rough areas Outer sole should be made of stiff material Shoes should be at least as wide as your feet Tips for Foot Care in Diabetes Don't wait to treat a minor foot problem if you have diabetes. Follow your health care provider's guidelines and first aid guidelines. Report foot injuries and infections to your health care provider immediately. Check water temperature with your elbow, not your foot. Do not use a heating pad on your feet. Do not cross your legs. Do not self-treat your corns, calluses, or other foot problems. Go to your health care provider or passport support associate to treat these conditions. documented in this encounterSelect Medical [facility] [place]12-01-2023 History of Present illness Narrative* Papa Gar - 07/17/2023 11:42 AM EST Last time saw pcp: 06/24/23 Subjective: Patient presents to clinic c/o painful toenails. They state that the nails are especially painful with shoe gear and pressure. Patient states that nails 1-5 b/l are painful. Patient admits to being diabetic. No other pedal complaints at this time. Patient states no change in medications or medical history since last visit. Objective: Patient presents to clinic ambulating in diabetic shoe Vasc: DP and PT pulses are nonpalpable bilateral. CFT is less than 5 seconds bilateral. Skin temperature is warm to cool proximal to distal bilateral. There is moderate edema or varicosities noted. Neuro: Protective sensation is decreased to the foot and toes when tested with the 5.07 SWM bilateral. Vibratory sensation is absent at the hallux IPJ bilateral. The hallux is downgoing bilateral. Derm: Nails 1-5 b/l are painful, discolored-yellow, thick, crumbly, dystrophic and with subungal debris. Skin is thin, ruborous and hair growth is absent bilateral. There are no hyperkeratosis, ulcerations, scars, verruca or other lesions noted. Ortho: Muscle strength is 5/5 for all pedal groups tested. Ankle joint DF is decreased with the knee extended with no pain or crepitus noted. 1st MPJ ROM is decreased bilateral. Assessment: (B35.1) Onychomycosis (primary encounter diagnosis) (M79.675) Pain in toe of left foot (M79.674) Pain in toe of right foot (E11.42) Diabetic polyneuropathy associated with type 2 diabetes mellitus (HCC) (I73.9) PAD (peripheral artery disease) ([facility]) Plan: Patient was seen and evaluated. Nails 1-5 bilateral were debrided in length and thickness. Small bleed to left 3rd toe. Band aide and topical antibiotic applied. Discussed removal of toenails as a treatment option but would recommend vascular testing prior to any attempted removal. Patient has elected to continue with conservative care Patient was instructed on the continued importance of diabetic foot care along with proper diet andkeeping their blood sugar under control to prevent complications. Continue with lotion to feet. Patient is to RTC in 3-4 months. Papa Gar DPM * Margot Donahue RN - 07/17/2023 11:39 AM EST Patient presents with: Left Foot - Established Patient, Follow Up, Diabetic Foot Check Right Foot - Established Patient, Follow Up, Diabetic Foot Check Patient presents for 3 month diabetic foot check and nail care. LADAN- 02/06/23 documented in this encounterSelect Medical [facility] [place]10-[facility]-2023 History of Present illness Narrative* Thomas Mcclendon RN - 06/16/2023 2:28 PM EDT CDM Telephonic Outreach Provider Action/FYI CDM: CHF Pt repored on 06/11/23 seen at [facility] for Right Hernia repair, Pt is eating, drinking urinating, and having BM, Denies fever or chills or other symptom concerns or needs. Pt has Appt with Dr. Louie Surgeon Contacted for: Routine Telephonic Outreach Contact made with patient: Yes Patient identified by name and date of . Discussed care with patient Are you experiencing any new or worsening symptoms you need to talk about today? No Disease Specific Do you check your blood pressure at home? Yes, Enter readings: Not taken Do you have new or worsening shortness of breath with activity? No Do you have new or worsening trouble breathing while lying flat? No Do you have new or worsening swelling of legs, feet or ankles? No Do you check your daily weight at home? Yes, Have you noticed a sudden gain in weight greater than three pounds in a day or three pounds in a week? No Based on custodian supervisor, the following disposition is advised: No symptoms or symptoms present, not severe. Routed to: No Action Needed VINCENT Education Provided this Outreach: No Thomas Mcclendon RN June 16, 2023 3:03 PM documented in this encounterSelect Medical [facility] [place]-2023 History of Present illness Narrative* Thomas Mcclendon RN - 05/22/2023 1:16 PM EDT CDM Telephonic Outreach Provider Action/FYI CDM: CHF Called Pt, unable to leave?a message to verify symptom status and needs, Mail box is not set up. Contacted for: Routine Telephonic Outreach Contact made with patient: No, unable to leave message. Will reattempt call Thomas Mcclendon RN May 22, 2023 1:16 PM * Thomas Mcclendon RN - 05/20/2023 2:04 PM EDT CDM Telephonic Outreach Provider Action/FYI CDM: CHF Called Pt, unable to leave?a message to verify symptom status and needs, Mail box is not set up. Contacted for: Routine Telephonic Outreach Contact made with patient: No, unable to leave message. Will reattempt call Thomas Mcclendon RN May 20, 2023 2:46 PM documented in this encounterSelect Medical [facility] [place]-2023 History of Present illness Narrative* Thomas Mcclendon RN - 03/25/2023 4:31 PM EDT CDM Telephonic Outreach Provider Action/FYI CDM: CHF Pt feels tired after mowing, has intermittent back pain, denies needs or concerns BP 118/60, wt 220 lbs Contacted for: Routine Telephonic Outreach Contact made with patient: Yes Patient identified by name and date of . Discussed care with patient Are you experiencing any new or worsening symptoms you need to talk about today? No Disease Specific Do you check your blood pressure at home? Yes, Enter readings: 118/60 Do you have new or worsening shortness of breath with activity? No Do you have new or worsening trouble breathing while lying flat? No Do you have new or worsening swelling of legs, feet or ankles? No Do you check your daily weight at home? Yes, Have you noticed a sudden gain in weight greater than three pounds in a day or three pounds in a week? No Based on custodian supervisor, the following disposition is advised: No symptoms or symptoms present, not severe. Routed to: No Action Needed VINCENT Education Provided this Outreach: No Thomas Mcclendon RN March 25, 2023 4:35 PM * Thomas Mcclendon RN - 03/23/2023 10:34 AM EDT CDM Telephonic Outreach Provider Action/FYI CDM: CHF Called Pt, unable to leave a message to verify symptom status and needs Contacted for: Routine Telephonic Outreach Contact made with patient: No, unable to leave message. Will reattempt call Thomas Mcclendon RN March 23, 2023 11:09 AM documented in this encounter[facility] History of Present illness Narrative* Thomas Mcclendon RN - 03/16/2023 2:11 PM EDT CDM Telephonic Outreach Provider Action/FYI CDM: CHF Called Pt, unable to leave a message to verify symptom status and needs, voice mail is not set up. . Contacted for: Routine Telephonic Outreach Contact made with patient: No, unable to leave message. Will reattempt call Thomas Mcclendon RN March 16, 2023 2:11 PM documented in this encounterSelect [facility] [place] History of Present illness Narrative* Thomas Mcclendon RN - 02/10/2023 11:27 AM EDT CDM Telephonic Outreach Provider Action/FYI CDM: CHF Called, line busy, unable to leave a message, to verify symptoms and needs, line was busy. Contacted for: Routine Telephonic Outreach Contact made with patient: No, unable to leave message. Will reattempt call Thomas Mcclendon RN February 10, 2023 11:47 AM * Thomas Mcclendon RN - 02/09/2023 4:07 PM EDT CDM Telephonic Outreach Provider Action/FYI CDM: CHF Called home number, unable to leave a message to verify symptom status and needs.Line was busy Contacted for: Routine Telephonic Outreach Contact made with patient: No, unable to leave message. Will reattempt call Thomas Mcclendon RN February 09, 2023 4:07 PM documented in this encounterSelect [facility] History of Present illness Narrative* Papa Gar - 02/06/2023 2:35 PM EDT Last saw Anna Hernandez: 01/16/23 Subjective: Patient presents to clinic c/o painful toenails. They state that the nails are especially painful with shoe gear and pressure. Patient states that nails 1-5 b/l are painful. Patient admits to being diabetic . Does report small wound of left leg where he scraped his car door. No other pedal complaints at this time. Patient states no change in medications or medical history since last visit. Objective: Patient presents to clinic ambulating in diabetic shoes Vasc: DP and PT pulses are nonpalpable bilateral. CFT is less than 5 seconds bilateral. Skin temperature is warm to cool proximal to distal bilateral. There is mild edema or varicosities noted. Neuro: Protective sensation is absent to the foot and toes when tested with the 5.07 SWM bilateral.Vibratory sensation is absent at the hallux IPJ bilateral. The hallux is downgoing bilateral. Derm: Nails 1-5 b/l are painful, discolored-yellow, thick, crumbly, dystrophic and with subungal debris. Skin is ruborous and hair growth is absent bilateral. There is noninfected abasion to left leg. There are no hyperkeratosis, ulcerations, scars, verruca or other lesions noted. Ortho: Muscle strength is 5/5 for all pedal groups tested. Ankle joint DF is decreased with the knee extended with no pain or crepitus noted. 1st MPJ ROM is decreased bilateral. Assessment: (B35.1) Onychomycosis (primary encounter diagnosis (M79.675) Pain in toe of left lesly (M79.674) Pain in toe of right foot (E11.42) Diabetic polyneuropathy associated with type 2 diabetes mellitus ([facility]) (I73.9) PAD (peripheral artery disease) ([facility]) (I87.2) Venous insufficiency (L85.3) Xerosis cutis Plan: Patient was seen and evaluated. Nails 1-5 bilateral were debrided in length and thickness. Small bleed to b/l 3rd toe. Band aide applied. Discussed swelling in legs. Recommend compression via jero wrap. Can apply small amount of neosporinto left leg. Would hold on any adhesive bandages out of fear of possible tearing of skin. Patient was instructed on the continued importance of diabetic foot care along with proper diet andkeeping their blood sugar under control to prevent complications. Patient is to RTC in 3-4 months. Papa Gar DPM * Honey Haney LPN - 02/06/2023 2:17 PM EDT AMB ROOMING INTAKE FLOWSHEET DATA Patient presents with: Left Foot - Established Patient, Follow Up, Diabetic Foot Care Right Foot - Established Patient, Follow Up, Diabetic Foot Care Left Leg - Established Patient, Ulcer Honey Haney LPN documented in this encounterSelect [facility] History of Past illness Narrative* Problem Noted Date Diagnosed Date Resolved Date Stage 3a chronic kidney disease 01/16/2023 08/20/2023 Uncontrolled type 2 diabetes mellitus with hyperglycemia 01/19/2019 11/01/2021 Last Assessment & Plan: Assessment: on insulin, last A1C 6.5 on 10/19/2021, home glucose often under 100 in AM per patient Morbid obesity 09/30/2017 05/01/2023 CVA (cerebral infarction) 12/22/2011 Pleural effusion 11/19/2011 12/11/2014 Overview: Small lft pleural effusion Noted on chest x-ray [facility] On 11/13/11.blunting of the lft costophrenic andle. Type II or unspecified type diabetes mellitus without mention of complication, not stated as uncontrolled 07/15/2006 12/22/2011 BMI 39.0-39.9,adult 04/16/20 17 documented as of this encounter (statuses as of 11/04/2023) [facility] History of Past illness Narrative* Problem Noted Date Diagnosed Date Resolved Date Stage 3a chronic kidney disease 01/16/2023 08/20/2023 Uncontrolled type 2 diabetes mellitus with hyperglycemia 01/19/2019 11/01/2021 Last Assessment & Plan: Assessment: on insulin, last A1C 6.5 on 10/19/2021, home glucose often under 100 in AM per patient Morbid obesity 09/30/2017 05/01/2023 CVA (cerebral infarction) 12/22/2011 Pleural effusion 11/19/2011 12/11/2014 Overview: Small lft pleural effusion Noted on chest x-ray [facility] On 11/13/11.blunting of the lft costophrenic andle. Type II or unspecified type diabetes mellitus without mention of complication, not stated as uncontrolled 07/15/2006 12/22/2011 BMI 39.0-39.9,adult 04/16/20 17 documented as of this encounter (statuses as of 11/11/2023) [facility] History of Present illness Narrative* Anna Hernandez, HARVEST SUPERVISOR.COFFEE SHOP ATTENDANT - 01/16/2023 2:00 PM EDT SUBJECTIVE: DTAP,TDAP,TD(2 - Td or Tdap) due on 05/11/2022 HPI Kendrick Barraza is a 72 year old male. Past medical history significant for coronary artery disease status post coronary stent to LAD and diagonal 2012. Hypertension, hyperlipidemia diabetes CVA 2011, CLL and PVCs. 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 Staged PCI with drug-eluting stent to distal left circumflex on 05/04/2020. at [facility]. Dr Alexander, appointment next week S/P left posterior total hip surgery Glendy Ochoa MD 11/11/2021. Notes feeling well recovered. Walking with cane. Followed by urologist at [facility], checks PSA. Dr Mistry, hematology oncology following CLL, prostate cancer. Since last seen he had a syncopal episode about 3 weeks ago. He was seen by [facility]. Completed an echocardiogram which is reported to look good. He completed a Zio patch but results are pending on this. He reports evaluation specialist told him he may have been dehydrated. Mr. Barraza says he is holding Lasix periodically. No recurrence. No report of chest pain shortness of breath palpitations edema presyncope syncope subsequently. DIABETES MELLITUS: Notes good control. He brings in home glucose readings which all show good control. He reports he holds insulin at times if blood sugar at 100 or lower to avoid hypoglycemia. No report of excessive thirst or increased frequency of urination, chest pain or dyspnea , numbness, tingling or pain in extremities, new or unusual visual symptoms, low sugar/hypoglycemic reactions, weight loss/gain, lightheadedness/dizziness and bowel changes/loose stools. Patient's last HgA1C was Hemoglobin A1C (%) Date Value 12/19/2022 6.2 07/12/2022 6.0 04/13/2021 6.5 12/08/2020 7.0 Hemoglobin A1C (POCT) (%) Date Value 07/26/2021 6.4 ) Notes statin intolerance, takes ezetimibe. Sees eye doctor routinely. Review of Systems Constitutional: Negative. Respiratory: Negative. Cardiovascular: Negative. Endocrine: Negative. Neurological: Positive for syncope. Objective BP 126/72 Pulse 88 Resp 16 Wt 95.7 kg (211 lb) BMI 31.16 kg/m Physical Exam Vitals and nursing note reviewed. Constitutional: Appearance: Normal appearance. HENT: Head: Normocephalic and atraumatic. Eyes: Conjunctiva/sclera: Conjunctivae normal. Cardiovascular: Rate and Rhythm: Normal rate and regular rhythm. Pulmonary: Effort: Pulmonary effort is normal. Breath sounds: Normal breath sounds. Abdominal: General: Bowel sounds are normal. Palpations: Abdomen is soft. Musculoskeletal: Right lower leg: No edema. Left lower leg: No edema. Skin: General: Skin is warm and dry. Neurological: General: No focal deficit present. Mental Status: He is alert and oriented to person, place, and time. ALLERGIES Allergen Reactions Oxycodone Vomiting Ciprofloxacin Vomiting dizziness Crestor [Rosuvastat* Intolerance Severe myalgias; could not work because so severe Lipitor [Atorvastat* Other: See Comments Joint pain Pravachol [Pravasta* Intolerance myalgias Statins [Statins-Hm* Intolerance Muscle aches; so bad cannot move Medications insulin aspart U-100 (NOVOLOG FLEXPEN U-100 INSULIN) 100 unit/mL (3 mL) Inject 10 Units subcutaneously three times daily before meals. As directed when eats meals insulin glargine (LANTUS SOLOSTAR U-100 INSULIN) 100 unit/mL (3 mL) Inject 5 Units subcutaneously daily at bedtime. (Adjust as indicated) ramipril (ALTACE) 10 mg capsule Take 1 capsule by mouth once daily. ezetimibe (ZETIA) 10 mg tablet Take 1 tablet by mouth once daily. metFORMIN ER (GLUCOPHAGE XR) 500 mg 24 hr tablet Take 4 tablets by mouth once daily. carvedilol (COREG) 12.5 mg tablet Take 1 tablet by mouth twice daily. furosemide (LASIX) 40 mg tablet Take 40 mg by mouth once daily. potassium chloride 20 mEq TbER Take 1 tablet by mouth once daily. blood sugar diagnostic ([employer] ULTRA TEST) test strip Test blood sugar(s) 4 times daily. Dx: E11.65, DM. Insulin: Yes (Meals and bedtime--4 injections) Cholecalciferol, Vitamin D3, 125 mcg (5,000 unit) cap Take 1 capsule by mouth every other day. May switch to 2000 units daily insulin needles, DISPOSABLE, (PEN NEEDLE) 31 gauge x 5/16 ndle Use one needle per dose. 4 per day. ondansetron orally disintegrating (ZOFRAN ODT) 4 mg disintegrating tablet Take 1 tablet by mouth every 8 hours as needed for nausea/vomiting. (Patient not taking: No sig reported) aspirin, enteric coated (ASPIRIN, ENTERIC COATED) 81 mg EC tablet Take 1 tablet by mouth twice daily. ascorbic acid, vitamin C, (VITAMIN C) 500 mg tablet Take 1 tablet by mouth twice daily with meals for 26 doses. oxyCODONE IR (ROXICODONE) 5 mg immediate release tablet Take 1-2 tablets by mouth every 6 hours as needed for pain. (Patient not taking: No sig reported) ketoconazole (NIZORAL) 2 % cream Apply 1 application to affected area once daily. (Patient not taking: Reported on 01/16/2023) PAST MEDICAL HISTORY Diagnosis Date CAD (coronary artery disease) Stents x 4 CHF (congestive heart failure) ([facility]) 12/22/2011 Class 1 obesity due to excess calories with body mass index (BMI) of 34.0 to 34.9 in adult 09/30/2017 CLL (chronic lymphocytic leukemia) ([facility]) 11/20/2011 cva 10/2011 left pontine infarct Diabetes mellitus without mention of complication Diabetes mellitus Diverticulosis of colon (without mention of hemorrhage) Elevated PSA 12/11/2014 HYPERLIPIDEMIA NEC/NOS 07/22/2006 HYPERTENSION NOS 07/15/2006 Obesity Pleural effusion 11/19/2011 Small lft pleural effusion Noted on chest x-ray [facility] On 11/13/11.blunting of the lft costophrenic andle. PVC (premature ventricular contraction) Uncontrolled type 2 diabetes mellitus with hyperglycemia (HCC) 01/19/2019 Social History Tobacco Use Smoking status: Never Smokeless tobacco: Never Vaping Use Vaping Use: Never used Substance Use Topics Alcohol use: No Drug use: No Component Latest Ref Rng & Units 01/31/2022 04/10/2022 07/12/2022 08/26/2022 12/19/2022 WBC 3.70 - 11.00 k/uL 7.74 7.44 6.73 RBC 4.20 - 6.00 m/uL 5.02 5.08 4.87 Hemoglobin 13.0 - 17.0 g/dL 15.8 16.0 15.5 Hematocrit 39.0 - 51.0 % 46.0 47.7 44.2 MCV 80.0 - 100.0 fL 91.6 93.9 90.8 MCH 26.0 - 34.0 pg 31.5 31.5 31.8 MCHC 30.5 - 36.0 g/dL 34.3 33.5 35.1 RDW-CV 11.5 - 15.0 % 13.0 12.5 12.8 Platelet Count 150 - 400 k/uL 208 205 204 MPV 9.0 - 12.7 fL 9.3 10.3 9.3 Neut% % 49.9 Abs Neut (ANC) 1.45 - 7.50 k/uL 3.36 Lymph% % 39.1 Abs Lymph 1.00 - 4.00 k/uL 2.63 Screven% % 5.5 Abs Screven <0.87 k/uL 0.37 Eosin% % 4.3 Abs Eosin <0.46 k/uL 0.29 Baso% % 0.6 Abs Baso <0.11 k/uL 0.04 Immature Gran % % 0.6 IMMATURE GRANS (ABS) <0.10 k/uL 0.04 NRBC /100 WBC 0.0 Absolute nRBC <0.01 k/uL <0.01 <0.01 <0.01 DTYPE Auto Protein, Total 6.3 - 8.0 g/dL 6.2 (L) 6.6 6.3 Albumin 3.9 - 4.9 g/dL 4.5 4.5 4.6 Calcium 8.5 - 10.2 mg/dL 9.4 8.9 9.8 8.8 Bilirubin, Total 0.2 - 1.3 mg/dL 0.7 1.3 1.1 Alkaline Phosphatase 38 - 113 U/L 46 47 53 AST 14 - 40 U/L 10 (L) 19 9 (L) ALT 10 - 54 U/L 7 (L) 9 (L) 7 (L) Glucose 74 - 99 mg/dL 125 (H) 101 (H) 117 (H) 117 (H) BUN 9 - 24 mg/dL 33 (H) 20 22 26 (H) Creatinine 0.73 - 1.22 mg/dL 1.33 (H) 1.07 1.27 (H) 1.44 (H) Sodium 136 - 144 mmol/L 142 140 140 137 Potassium 3.7 - 5.1 mmol/L 5.4 (H) 4.4 4.8 4.6 Chloride 97 - 105 mmol/L 104 106 (H) 101 101 CO2 22 - 30 mmol/L 25 24 25 26 Anion Gap 9 - 18 mmol/L 13 10 14 10 eGFR >=60 mL/min/1.73m 57 (L) 74 60 52 (L) Cholesterol, Total <200 mg/dL 215 (H) 209 (H) 199 Triglyceride <150 mg/dL 71 119 119 HDL Cholesterol >39 mg/dL 47 45 37 (L) Non HDL Cholesterol <130 mg/dL 168 (H) 164 (H) 162 (H) Fasting Time hrs 12 12 10 VLDL Cholesterol <30 mg/dL 14 24 24 TC:HDL Ratio <5.10 4.57 4.64 5.38 (H) LDL Cholesterol <100 mg/dL 154 (H) 140 (H) 138 (H) LDL:HDL Ratio <2.54 3.28 (H) 3.11 (H) 3.73 (H) Creatinine, Ur Random (UCRR) 20.0 - 300.0 mg/dL 176.3 Albumin, Urine Random mg/L 81.5 Albumin/Creat Ratio <30 mg/g 46 (H) Hemoglobin A1C 4.3 - 5.6 % 7.0 (H) 6.0 (H) 6.2 (H) Estimated Average Glucose mg/dL 154 126 131 Vitamin D 25 Hydroxy 31.0 - 80.0 ng/mL 41.8 Stool DNA Negative Negative ASSESSMENT/PLAN: 1. Controlled type 2 diabetes mellitus with diabetic neuropathy, with long-term current use of insulin (HCC) - ICD9: 250.60, 357.2, V58.67, ICD10: E11.40, Z79.4 (primary diagnosis) Controlled, continue current treatments unchanged, continue to monitor. Labs in 6 months - CBC + DIFF - COMP METABOLIC PANEL - LIPID PANEL BASIC - HGB A1C 2. Stage 3a chronic kidney disease (HCC) - ICD9: 585.3, ICD10: N18.31 Creatinine Date Value Ref Range Status 12/19/2022 1.44 (H) 0.73 - 1.22 mg/dL Final 07/12/2022 1.27 (H) 0.73 - 1.22 mg/dL Final 04/10/2022 1.07 0.73 - 1.22 mg/dL Final 01/31/2022 1.33 (H) 0.73 - 1.22 mg/dL Final Notes has intermittently been holding Lasix. Stable, endorse sufficient fluid intake 3. Obesity (BMI 30-39.9) - ICD9: 278.00, ICD10: E66.9 BMI is decreasing. Endorse routine exercise as able such as walking and portion control. 4. Syncope, unspecified syncope type - ICD9: 780.2, ICD10: R55 He is undergoing work-up with [facility], reports echocardiogram completed. Zio completed but results not yet back. He will let us know if needing anything additional. Keep scheduled follow-up appointments. Labs in 6 months. Anna Hernandez APRN.CNS Medical Decision Making: Problems: Moderate: 2+ stable chronic illnesses Data: Unique test(s) ordered: 3+ Risk: Moderate: Drug management Medical Decision Making Level: 4 - Moderate documented in this encounterSelect [facility] History of Present illness Narrative* Thomas Mcclendon RN - 01/13/2023 9:27 AM EDT CDM Telephonic Outreach Provider Action/SHELBYI Routed updates to Anna Hernandez CNP CDM: CHF Spk with Pt he noted he had gotten out of the shower, was lightheaded and fell 2 weeks ago, was seen by [facility] Cardiology group Becca ROTH. Pt reports he was ordered a Holter Monitoring which was discontinued on Thursday01/11/23, Pt denies CP, Palpitations, Sob, wheezing or edema or dizziness or other symptoms Eating and hydrating well Pt felt the lasix was drying him out too much, which caused constipation, Pt noted he stopped his Lasix dose daily, Instructed on the importance of taking Lasix daily as ordered, Pt verbalized understanding Instructed to discuss concerns with Anna Hernandez CNP at 01/16/23 Appt Pt is taking stool softener daily. ADL's, Falls, Goals completed Contacted for: Routine Telephonic Outreach Contact made with patient: Yes Patient identified by name and date of . Discussed care with patient Are you experiencing any new or worsening symptoms you need to talk about today? No Disease Specific Do you check your blood pressure at home? Yes, Enter readings: 110/56 Do you have new or worsening shortness of breath with activity? No Do you have new or worsening trouble breathing while lying flat? No Do you have new or worsening swelling of legs, feet or ankles? No Do you check your daily weight at home? Yes, Have you noticed a sudden gain in weight greater than three pounds in a day or three pounds in a week? No Based on custodian supervisor, the following disposition is advised: No symptoms or symptoms present, not severe. Routed to: No Action Needed VINCENT Education Provided this Outreach: No Thomas Mcclendon RN January 13, 2023 9:31 AM documented in this encounterSelect [facility] History of Present illness Narrative* Thomas Mcclendon RN - 01/06/2023 4:10 PM EDT CDM Telephonic Outreach Provider Action/FYI CDM: CHF Called Pt to verify symptoms and needs, line was busy, unable to leave a message. Contacted for: Routine Telephonic Outreach Contact made with patient: No, unable to leave message. Will reattempt call Thomas Mcclendon RN January 06, 2023 4:10 PM documented in this encounterSelect [facility]28-[facility] History of Present illness Narrative* Thomas Mcclendon RN - 12/12/2022 2:55 PM EDT CDM Telephonic Outreach Provider Action/FYI CDM: CHF Spk with Pt he noted FBS 110-120, BP 116/65, P 72, wt 204 lbs Pt denies new or worsening symptoms or needs Contacted for: Routine Telephonic Outreach Contact made with patient: Yes Patient identified by name and date of . Discussed care with patient Are you experiencing any new or worsening symptoms you need to talk about today? No Disease Specific Do you check your blood pressure at home? Yes, Enter readings: 116/65 Do you have new or worsening shortness of breath with activity? No Do you have new or worsening trouble breathing while lying flat? No Do you have new or worsening swelling of legs, feet or ankles? No Do you check your daily weight at home? Yes, Have you noticed a sudden gain in weight greater than three pounds in a day or three pounds in a week? No Based on custodian supervisor, the following disposition is advised:N/A Routed to: No Action Needed VINCENT Education Provided this Outreach: No Thomas Mcclendon RN December 12, 2022 2:59 PM * Thomas Mcclendon RN - 12/09/2022 3:16 PM EDT CDM Telephonic Outreach Provider Action/FYI CDM: CHF Called cell number, unable to leave a message to verify symptom status and needs. Contacted for: Routine Telephonic Outreach Contact made with patient: No, unable to leave message. Will reattempt call Thomas Mcclendon RN December 09, 2022 3:25 PM documented in this encounterSelect [facility] History of Present illness Narrative* Thomas Mcclendon RN - 11/13/2022 11:43 AM EDT IINSIGHT [facility] TELEPHONIC OUTREACH Provider Action/FYI: CDM CHF Called Pt left a message to verify symptom status and needs. Instructed to call PCP with any symptom or condition changes. Contact made with patient: No - Left message Hello my name is Thomas Mcclendon RN your [employer] Law Clerk from the [facility] I am callingtoday for your bi-weekly check in. I am sorry I missed your call. I will reach out to you again tomorrow. (if the third call I will reach out to you again next week) Enter next patient outreach date for the following business day using the Track Pt Outreach. End outreach. Thomas Mcclendon RN November 13, 2022 11:43 AM documented in this encounterSelect Medical [facility]03-24-2023 History of Present illness Narrative* Thomas Mcclendon RN - 11/07/2022 11:30 AM EDT INSIGHT CDM TELEPHONIC OUTREACH Provider Action/FYI: CDM: CHF Called home number, unable to leave a message to verify symptom status and needs, line rang busy. Contact made with patient: No - Unable to leave message Entered next patient outreach date for the following business day, if third call please enter next outreach date for one week in the Track Pt. Outreach - End Outreach Thomas Mcclendon RN November 07, 2022 11:30 AM documented in this encounterSelect Medical [facility]03-14-2023 Miscellaneous Notes* Telephone Encounter - Papa Gar - 10/28/2022 12:45 PM EDT I called patient to check and see how he was doing. He states that his toe is doing much better. The superficial cuts on his 1st, 3r and 4th toe are healed. He will follow-up as scheduled for nail care Papa Gar DPM documented in this encounterSelect Medical [facility]03-08-2023 Miscellaneous Notes* Telephone Encounter - Jazmin Kimbrough LPN - 10/22/2022 1:25 PM EST Last office visit: 08/01/23 Next appointment scheduled: 11/07/22 Last labs: 07/12/22 last lipid panel Patient phones requesting refills as follows: Requested Prescriptions Pending Prescriptions Disp Refills ezetimibe (ZETIA) 10 mg tablet 90 tablet 3 Sig: Take 1 tablet by mouth once daily. Please review and advise. Jazmin Kimbrough LPN documented in this encounterSelect Medical [facility]-01-2023 History of Present illness Narrative* Thomas Mcclendon RN - 10/15/2022 3:42 PM EST INSIGHT CDM TELEPHONIC OUTREACH Provider Action/FYI: CDM: CHF Pt denies new or worsening symptoms or needs, BP 130/60, wt 225 lbs Instructed to call PCP with any changes in symptoms or concerns. Pt verbalized understanding Contact made with patient: Yes Patient identified by name and . Discussed care with patient It s nice talking to you again. As a reminder, this is our bi-weekly check-in where I will be asking you questions about your health. This will only take a few minutes of your time. Is this a good time? Yes Symptoms What Chronic Disease(s) does the patient have: CHF Do you check your blood pressures at home? Yes, Enter readings: 130/60 Do you have new or worse shortness of breath with activity? No Do you have new or worsening trouble breathing while lying flat? No Do you have new or worsening swelling of legs, feet or ankles? No Do you check your daily weight at home? Yes, Have you noticed a sudden gain in weight greater than three pounds in a day or three pounds in a week? No Are you having any other symptoms that your PCP needs to know about? No Symptoms: Symptom Escalation VINCENT Education Ordered -: No The patient required an escalation for symptom(s)? No Medications Do you have any questions about taking your medication or which medications you should be on? No Do you need any medication refills at this time, including any of the medications you might take only when needed? No Social We would like to make sure you have what you need so that your basic needs are met- including your personal safety, food, housing, transportation and medications? Would you like to speak with a social work hospice team lead to help give you support for any of these needs? No It can be normal to feel anxious or down during a time like this. Would you like to talk to a mental health professional about how you have been feeling? No Closing Thank you for taking the time to talk with me today. We want to work with you to ensure that we arekeeping your medical condition(s) well-controlled and to keep you healthy and out of the doctor's office or hospital. It s also not too late for me to sign you up for automated weekly questionnaires through [employer]. This is an easy way for us to stay connected each week. Are you interested? No, I understand. We can always sign you up in the future if you change your mind. Just as a reminder, will continue to call you every other week to check in on your health. Our calls should take 10-15 minutes or less. Remember, if you have concerns in between our calls, please call your PCP's office right away. Thank you. Enter next patient outreach date for two weeks on the same day of the week as today in the Track PtOutreach and End outreach. Thomas Mcclendon RN October 15, 2022 3:42 PM documented in this encounter[facility] History of Present illness Narrative* Thomas Mcclendon RN - 09/16/2022 12:16 PM EST INSIGHT CDM TELEPHONIC OUTREACH Provider Action/FYI: CDM: CHF Spk with Pt denies symptoms, or needs. Instructed to call PCP with any changes in condition Pt verbalized understanding and appreciation for call. Contact made with patient: Yes Patient identified by name and . Discussed care with patient It s nice talking to you again. As a reminder, this is our bi-weekly check-in where I will be asking you questions about your health. This will only take a few minutes of your time. Is this a good time? Yes Symptoms What Chronic Disease(s) does the patient have: CHF Do you check your blood pressures at home? Yes, Enter readings: 106/60 Do you have new or worse shortness of breath with activity? No Do you have new or worsening trouble breathing while lying flat? No Do you have new or worsening swelling of legs, feet or ankles? No Do you check your daily weight at home? Yes, Have you noticed a sudden gain in weight greater than three pounds in a day or three pounds in a week? No Are you having any other symptoms that your PCP needs to know about? No Symptoms: Symptom Escalation VINCENT Education Ordered -: No The patient required an escalation for symptom(s)? No Medications Do you have any questions about taking your medication or which medications you should be on? No Do you need any medication refills at this time, including any of the medications you might take only when needed? No Social We would like to make sure you have what you need so that your basic needs are met- including your personal safety, food, housing, transportation and medications? Would you like to speak with a social work hospice team lead to help give you support for any of these needs? No It can be normal to feel anxious or down during a time like this. Would you like to talk to a mental health professional about how you have been feeling? No Closing Thank you for taking the time to talk with me today. We want to work with you to ensure that we arekeeping your medical condition(s) well-controlled and to keep you healthy and out of the doctor's office or hospital. It s also not too late for me to sign you up for automated weekly questionnaires through [employer]. This is an easy way for us to stay connected each week. Are you interested? No, I understand. We can always sign you up in the future if you change your mind. Just as a reminder, will continue to call you every other week to check in on your health. Our calls should take 10-15 minutes or less. Remember, if you have concerns in between our calls, please call your PCP's office right away. Thank you. Enter next patient outreach date for two weeks on the same day of the week as today in the Track PtOutreach and End outreach. Thomas Mcclendon RN September 16, 2022 12:16 PM documented in this encounterSelect [facility] [place] History of Present illness Narrative* Thomas Mcclendon RN - 08/22/2022 3:15 PM EST [facility] TELEPHONIC OUTREACH Provider Action/FYI: CDM: CHF Left a message to verify symptom status and needs. Instructed to call PCP with any changes in condition Contact made with patient: No - Left message Hello my name is Thomas Mcclendon RN your [employer] Law Clerk from the [facility] I am callingtoday for your bi-weekly check in. I am sorry I missed your call. I will reach out to you again tomorrow. (if the third call I will reach out to you again next week) Enter next patient outreach date for the following business day using the Track Pt Outreach. End outreach. Thomas Mcclendon RN August 22, 2022 3:15 PM documented in this encounterSelect [facility] [place] History of Present illness Narrative* Thomas Mcclendon RN - 08/19/2022 12:48 PM EST [facility] ANDERSON TELEPHONIC OUTREACH Provider Action/FYI: CDM: CHF Called Pt home to verify symptom status, mailbox is not set up. Contact made with patient: No - Unable to leave message Entered next patient outreach date for the following business day, if third call please enter next outreach date for one week in the Track Pt. Outreach - End Outreach Thomas Mcclendon RN August 19, 2022 12:48 PM documented in this encounterSelect [facility] [place]22 History of Present illness Narrative* Anna Hernandez APRN.MICHELLE - 08/01/2022 2:40 PM EST SUBJECTIVE: DEPRESSION ASSESSMENT Never done DTAP,TDAP,TD(2 - Td or Tdap) due on 05/11/2022 COLORECTAL CANCER SCREENING due on 07/23/2022 IVELISSE Barraza is a 71 year old male. Past medical history significant for coronary artery disease status post coronary stent to LAD and diagonal 2012. Hypertension, hyperlipidemia diabetes CVA 2011, CLL and PVCs. 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 Staged PCI with drug-eluting stent to distal left circumflex on 05/04/2020. at [facility]. Dr Alexander, appointment next week S/P left posterior total hip surgery Glendy Ochoa MD 11/11/2021. Notes feeling well recovered. Walking with cane. Followed by urologist at [facility], checks PSA. Dr Mistry, hematology oncology following CLL, prostate cancer. Visit 07/2021. Notes eating more, appetite is good. DIABETES MELLITUS: No report of excessive thirst or increased frequency of urination, chest pain or dyspnea , numbness, tingling orpain in extremities, new or unusual visual symptoms, low sugar/hypoglycemic reactions, weight loss/gain, lightheadedness/dizziness and bowel changes/loose stools. Patient's last HgA1C was Hemoglobin A1C (%) Date Value 07/12/2022 6.0 04/10/2022 7.0 04/13/2021 6.5 12/08/2020 7.0 Hemoglobin A1C (POCT) (%) Date Value 07/26/2021 6.4 ) Notes statin intolerance, takes ezetimibe. Sees eye doctor routinely. Review of Systems Constitutional: Negative. Respiratory: Negative. Cardiovascular: Negative. Endocrine: Negative. Objective BP 130/74 Pulse 84 Resp 16 Wt 102.5 kg (226 lb) BMI 33.37 kg/m Physical Exam Vitals and nursing note reviewed. Constitutional: Appearance: Normal appearance. HENT: Head: Normocephalic and atraumatic. Eyes: Conjunctiva/sclera: Conjunctivae normal. Cardiovascular: Rate and Rhythm: Normal rate and regular rhythm. Pulmonary: Effort: Pulmonary effort is normal. Breath sounds: Normal breath sounds. Abdominal: General: Bowel sounds are normal. Palpations: Abdomen is soft. Musculoskeletal: Right lower leg: No edema. Left lower leg: No edema. Skin: General: Skin is warm and dry. Neurological: General: No focal deficit present. Mental Status: He is alert and oriented to person, place, and time. ALLERGIES Allergen Reactions Oxycodone Vomiting Ciprofloxacin Vomiting dizziness Crestor [Rosuvastat* Intolerance Severe myalgias; could not work because so severe Lipitor [Atorvastat* Other: See Comments Joint pain Pravachol [Pravasta* Intolerance myalgias Statins [Statins-Hm* Intolerance Muscle aches; so bad cannot move Medications insulin aspart U-100 (NOVOLOG FLEXPEN U-100 INSULIN) 100 unit/mL (3 mL) Inject 10 Units subcutaneously three times daily before meals. As directed when eats meals carvedilol (COREG) 12.5 mg tablet Take 1 tablet by mouth twice daily. ramipril (ALTACE) 10 mg capsule Take 1 capsule by mouth once daily. blood sugar diagnostic ([employer] ULTRA TEST) test strip Test blood sugar(s) 4 times daily. Dx: E11.65, DM. Insulin: Yes (Meals and bedtime--4 injections) insulin glargine (LANTUS SOLOSTAR U-100 INSULIN) 100 unit/mL (3 mL) Inject 5 Units subcutaneously daily at bedtime. (Adjust as indicated) Cholecalciferol, Vitamin D3, 125 mcg (5,000 unit) cap Take 1 capsule by mouth every other day. May switch to 2000 units daily insulin needles, DISPOSABLE, (PEN NEEDLE) 31 gauge x 5/16 ndle Use one needle per dose. 4 per day. ezetimibe (ZETIA) 10 mg tablet Take 1 tablet by mouth once daily. metFORMIN ER (GLUCOPHAGE XR) 500 mg 24 hr tablet Take 4 tablets by mouth once daily. furosemide (LASIX) 40 mg tablet Take 40 mg by mouth once daily. (Patient not taking: No sig reported) potassium chloride 20 mEq TbER Take 1 tablet by mouth once daily. (Patient not taking: Reported on 05/23/2022) ondansetron orally disintegrating (ZOFRAN ODT) 4 mg disintegrating tablet Take 1 tablet by mouth every 8 hours as needed for nausea/vomiting. (Patient not taking: No sig reported) aspirin, enteric coated (ASPIRIN, ENTERIC COATED) 81 mg EC tablet Take 1 tablet by mouth twice daily. ascorbic acid, vitamin C, (VITAMIN C) 500 mg tablet Take 1 tablet by mouth twice daily with meals for 26 doses. oxyCODONE IR (ROXICODONE) 5 mg immediate release tablet Take 1-2 tablets by mouth every 6 hours as needed for pain. (Patient not taking: No sig reported) ketoconazole (NIZORAL) 2 % cream Apply 1 application to affected area once daily. (Patient not taking: No sig reported) PAST MEDICAL HISTORY Diagnosis Date CAD (coronary artery disease) Stents x 4 CHF (congestive heart failure) ([facility]) 12/22/2011 Class 1 obesity due to excess calories with body mass index (BMI) of 34.0 to 34.9 in adult 09/30/2017 CLL (chronic lymphocytic leukemia) ([facility]) 11/20/2011 cva 10/2011 left pontine infarct Diabetes mellitus without mention of complication Diabetes mellitus Diverticulosis of colon (without mention of hemorrhage) Elevated PSA 12/11/2014 HYPERLIPIDEMIA NEC/NOS 07/22/2006 HYPERTENSION NOS 07/15/2006 Obesity Pleural effusion 11/19/2011 Small lft pleural effusion Noted on chest x-ray wc On 11/13/11.blunting of the lft costophrenic andle. PVC (premature ventricular contraction) Uncontrolled type 2 diabetes mellitus with hyperglycemia ([facility]) 01/19/2019 Social History Tobacco Use Smoking status: Never Smokeless tobacco: Never Vaping Use Vaping Use: Never used Substance Use Topics Alcohol use: No Drug use: No Component Latest Ref Rng & Units 10/19/2021 01/04/2022 01/31/2022 04/10/2022 Protein, Total 6.3 - 8.0 g/dL 6.4 6.2 (L) 6.2 (L) Albumin 3.9 - 4.9 g/dL 4.4 4.3 4.5 Calcium 8.5 - 10.2 mg/dL 9.4 9.2 9.4 8.9 Bilirubin, Total 0.2 - 1.3 mg/dL 1.2 0.8 0.7 Alkaline Phosphatase 38 - 113 U/L 34 (L) 46 46 AST 14 - 40 U/L 21 14 10 (L) ALT 10 - 54 U/L 12 8 (L) 7 (L) Glucose 74 - 99 mg/dL 98 166 (H) 125 (H) 101 (H) BUN 9 - 24 mg/dL 16 21 33 (H) 20 Creatinine 0.73 - 1.22 mg/dL 0.92 1.06 1.33 (H) 1.07 Sodium 136 - 144 mmol/L 138 139 142 140 Potassium 3.7 - 5.1 mmol/L 4.4 4.9 5.4 (H) 4.4 Chloride 97 - 105 mmol/L 103 103 104 106 (H) CO2 22 - 30 mmol/L 22 26 25 24 Anion Gap 9 - 18 mmol/L 13 10 13 10 eGFR >=60 mL/min/1.73m 89 75 57 (L) 74 WBC 3.70 - 11.00 k/uL 6.79 6.86 7.74 RBC 4.20 - 6.00 m/uL 5.27 4.71 5.02 Hemoglobin 13.0 - 17.0 g/dL 16.6 15.1 15.8 Hematocrit 39.0 - 51.0 % 50.3 46.3 46.0 MCV 80.0 - 100.0 fL 95.4 98.3 91.6 MCH 26.0 - 34.0 pg 31.5 32.1 31.5 MCHC 30.5 - 36.0 g/dL 33.0 32.6 34.3 RDW-CV 11.5 - 15.0 % 13.1 13.3 13.0 Platelet Count 150 - 400 k/uL 167 193 208 MPV 9.0 - 12.7 fL 9.7 9.6 9.3 Absolute nRBC <0.01 k/uL <0.01 <0.01 <0.01 Cholesterol, Total <200 mg/dL 201 (H) 188 215 (H) Triglyceride <150 mg/dL 121 65 71 HDL Cholesterol >39 mg/dL 43 55 47 Non HDL Cholesterol <130 mg/dL 158 (H) 133 (H) 168 (H) Fasting Time hrs 13 12 12 VLDL Cholesterol <30 mg/dL 24 13 14 TC:HDL Ratio <5.10 4.67 3.42 4.57 LDL Cholesterol <100 mg/dL 134 (H) 120 (H) 154 (H) LDL:HDL Ratio <2.54 3.12 (H) 2.18 3.28 (H) Creatinine, Ur Random (UCRR) 20.0 - 300.0 mg/dL 176.3 Albumin, Urine Random mg/L 81.5 Albumin/Creat Ratio <30 mg/g 46 (H) Hemoglobin A1C 4.3 - 5.6 % 6.5 (H) 6.2 (H) 7.0 (H) Estimated Average Glucose mg/dL 140 131 154 Vitamin D 25 Hydroxy 31.0 - 80.0 ng/mL 41.8 ASSESSMENT/PLAN: 1. Controlled type 2 diabetes mellitus without complication, with long-term current use of insulin (HCC) - ICD9: 250.00, V58.67, ICD10: E11.9, Z79.4 (primary diagnosis) Controlled One low reading since last here, improved with eating - Continue current medications - Blood glucose monitoring on a routine schedule, currently BID or more. 2. Screening for diabetic retinopathy - ICD9: V80.2, ICD10: Z13.5 [facility] 2021 4. Screening for colon cancer - ICD9: V76.51, ICD10: Z12.11 - COLOGUARD 5. Mixed hyperlipidemia - ICD9: 272.2, ICD10: E78.2 Followed by [facility] cariology Q6mos Stable, currently controlled, continue to monitor. Recommend a plant based diet such as Mediterranean diet with plenty of vegetables, fruits,whole grains, fish, chicken, turkey or plant proteins and routine exercise such as walking - EZETIMIBE 10 MG TABLET 3 mo follow up scheduled. Evie Grewal MD 6 mo labs Anna Hernandez APRN.[employer] ATTENDANT Medical Decision Making: Problems: Moderate: 2+ stable chronic illnesses Data: Unique test(s) ordered: 3+ Risk: Moderate: Drug management Medical Decision Making Level: 4 - Moderate documented in this encounterSelect Medical [facility]-2022 Miscellaneous Notes* Telephone Encounter - Sheryl Ruby LPN - 07/21/2022 3:44 PM EST Patient has medication pending for refill at [facility] tomorrow (07/22/22) * Telephone Encounter - Iveth Jackson Pss - 07/21/2022 11:49 AM EST Patient has been identified by name and date of : Yes Requested Prescriptions Pending Prescriptions Disp Refills metFORMIN ER (GLUCOPHAGE XR) 500 mg 24 hr tablet 360 tablet 3 Sig: Take 4 tablets by mouth once daily. carvedilol (COREG) 12.5 mg tablet 180 tablet 3 Sig: Take 1 tablet by mouth twice daily. RX INSTRUCTIONS: Patient aware RX will be sent to pharmacy. No need to notify patient. Iveth Sanchez documented in this encounterSelect Medical [facility]11-28-2022 History of Present illness Narrative* Thomas Mcclendon RN - 07/14/2022 11:29 AM EST INSIGHT CDM TELEPHONIC OUTREACH Provider Action/FYI: Spk with Pt he denies CHF symptoms, wt 225 lbs, BP 105/60 Denies needs or concerns. ADL/Falls/ Goals completed Contact made with patient: Yes Patient identified by name and . Discussed care with patient It s nice talking to you again. As a reminder, this is our bi-weekly check-in where I will be asking you questions about your health. This will only take a few minutes of your time. Is this a good time? Yes Symptoms What Chronic Disease(s) does the patient have: CHF Do you check your blood pressures at home? Yes, Enter readings: 105/60 Do you have new or worse shortness of breath with activity? No Do you have new or worsening trouble breathing while lying flat? No Do you have new or worsening swelling of legs, feet or ankles? No Do you check your daily weight at home? Yes, Have you noticed a sudden gain in weight greater than three pounds in a day or three pounds in a week? No Are you having any other symptoms that your PCP needs to know about? No Symptom Escalation The patient required an escalation for symptom(s)? No Medications Do you have any questions about taking your medication or which medications you should be on? No Do you need any medication refills at this time, including any of the medications you might take only when needed? No Social We would like to make sure you have what you need so that your basic needs are met- including your personal safety, food, housing and medications? Would you like to speak with a social work hospice team lead to help give you support for any of these needs? No It can be normal to feel anxious or down during a time like this. Would you like to talk to a mental health professional about how you have been feeling? No Closing Thank you for taking the time to talk with me today. We want to work with you to ensure that we arekeeping your medical condition(s) well-controlled and to keep you healthy and out of the doctor's office or hospital. It s also not too late for me to sign you up for automated weekly questionnaires through [employer]. This is an easy way for us to stay connected each week. Are you interested? No, I understand. We can always sign you up in the future if you change your mind. Just as a reminder, will continue to call you every other week to check in on your health. Our calls should take 10-15 minutes or less. Remember, if you have concerns in between our calls, please call your PCP's office right away. Thank you. Enter next patient outreach date for two weeks on the same day of the week as today in the Track PtOutreach and End outreach. Thomas Mcclendon RN July 14, 2022 11:29 AM documented in this encounterSelect Medical [facility]10[facility]26-20[facility] History of Present illness Narrative* Hakan Hill RN - 06/11/2022 1:47 PM EDT INSIGHT CDM TELEPHONIC OUTREACH Provider Action/FYI: Spk with Pt he noted he had stopped his Lasix for a short period, experienced bilateral leg swelling, was seen by Cardiology Becca ROTH at Dr. Alexander's office, and instructed to take his Lasix daily, he noted is consistently taking medication as ordered with improved symptoms. He denies swelling Sob, wheezing or coughing, denies any CHF symptoms or needs. Contact made with patient: Yes Patient identified by name and . Discussed care with patient It s nice talking to you again. As a reminder, this is our bi-weekly check-in where I will be asking you questions about your health. This will only take a few minutes of your time. Is this a good time? Yes Symptoms What Chronic Disease(s) does the patient have: CHF Do you check your blood pressures at home? Yes, Enter readings: 100-105 /55-60, P 75-85 Do you have new or worse shortness of breath with activity? No Do you have new or worsening trouble breathing while lying flat? No Do you have new or worsening swelling of legs, feet or ankles? No Do you check your daily weight at home? Yes, Have you noticed a sudden gain in weight greater than three pounds in a day or three pounds in a week? No Are you having any other symptoms that your PCP needs to know about? No Symptom Escalation The patient required an escalation for symptom(s)? No Medications Do you have any questions about taking your medication or which medications you should be on? No Do you need any medication refills at this time, including any of the medications you might take only when needed? No Social We would like to make sure you have what you need so that your basic needs are met- including your personal safety, food, housing and medications? Would you like to speak with a social work hospice team lead to help give you support for any of these needs? No It can be normal to feel anxious or down during a time like this. Would you like to talk to a mental health professional about how you have been feeling? No Closing Thank you for taking the time to talk with me today. We want to work with you to ensure that we arekeeping your medical condition(s) well-controlled and to keep you healthy and out of the doctor's office or hospital. It s also not too late for me to sign you up for automated weekly questionnaires through [employer]. This is an easy way for us to stay connected each week. Are you interested? No, I understand. We can always sign you up in the future if you change your mind. Just as a reminder, will continue to call you every other week to check in on your health. Our calls should take 10-15 minutes or less. Remember, if you have concerns in between our calls, please call your PCP's office right away. Thank you. Enter next patient outreach date for two weeks on the same day of the week as today in the Track PtOutreach and End outreach. Thomas Mcclendon RN June 11, 2022 1:47 PM documented in this encounterSelect Medical [facility]10-18-2022 Miscellaneous Notes* Telephone Encounter - Bay Jarrett RN - 06/03/2022 1:45 PM EDT Patient reports [facility] will not give him refill on Novolog. Reports he has been taking 10 units 3 times daily before meals, since his hip surgery in November. Reports after hip surgery his BS went up. He adjusted by increasing to 10 units before meals. Reports it is working pretty well. Fasting BS's are around 110. BS before meals around 180-200. Reports he feels good, and hip replacement is going good. Asking pcp to send new Rx with instructions to take 10 units 3 times daily with meals. Pended.Patient has 1 pen left. documented in this encounterSelect Medical [facility]10-10-2022 History of Present illness Narrative* Hakan Hill RN - 05/26/2022 2:27 PM EDT INSIGHT CDM TELEPHONIC OUTREACH Provider Action/FYI: Called Pt left a message to verify CHF or other symptoms or needs. Contact made with patient: No - Left message Hello my name is Thomas Mcclendon RN your [employer] Law Clerk from the [facility] I am callingtoday for your bi-weekly check in. I am sorry I missed your call. I will reach out to you again tomorrow. (if the third call I will reach out to you again next week) Enter next patient outreach date for the following business day using the Track Pt Outreach. End outreach. Thomas Mcclendon RN May 26, 2022 2:27 PM documented in this encounterSelect Medical [facility]10-07-2022 History of Present illness Narrative* Papa Cong - 05/23/2022 3:15 PM EDT Last saw Anna Hernandez: 05/02/22 Subjective: Patient presents to clinic c/o painful toenails. They state that the nails are especially painful with shoe gear and pressure. Patient states that nails 1-5 b/l are painful. Patient admits to being diabetic. No other pedal complaints at this time. Patient states no change in medications or medical history since last visit. Objective: Patient presents to clinic ambulating in diabetic shoes Vasc: DP and PT pulses are nonpalpable bilateral. CFT is less than 5 seconds bilateral. Skin temperature is warm to cool proximal to distal bilateral. There is + edema or varicosities noted. Neuro: Protective sensation is absent to the foot and toes when tested with the 5.07 SWM bilateral.Vibratory sensation is absent at the hallux IPJ bilateral. The hallux is downgoing bilateral. Derm: Nails 1-5 b/l are painful, discolored-yellow, thick, crumbly, dystrophic and with subungal debris. Skin is ruborous and hair growth is absent bilateral. There are no hyperkeratosis, ulcerations, scars, verruca or other lesions noted. Ortho: Muscle strength is 5/5 for all pedal groups tested. Ankle joint DF is decreased with the knee extended with no pain or crepitus noted. 1st MPJ ROM is decreased bilateral. Assessment: (B35.1) Onychomycosis (primary encounter diagnosis) (M79.675) Pain in toe of left foot (M79.674) Pain in toe of right foot (E11.42) Diabetic polyneuropathy associated with type 2 diabetes mellitus (HCC) (I73.9) PAD (peripheral artery disease) ([facility]) Plan: Patient was seen and evaluated. Nails 1-5 bilateral were debrided in length and thickness. Patient was instructed on the continued importance of diabetic foot care along with proper diet and keeping their blood sugar under control to prevent complications. Patient is to RTC in 3-4 months. Papa Gar DPM * Margot Donahue RN - 05/23/2022 3:02 PM EDT Patient presents with: Right Foot - Established Patient, Follow Up, nail care Left Foot - Established Patient, Follow Up, nail care Patient presents for 3 month follow up and nail care documented in this encounterSelect [facility] Instructions* Patient Instructions* Papa Gar - 05/23/2022 3:15 PM EDT Diabetes Foot Care Instructions When you have diabetes, proper foot care is very important. Poor foot care may lead to amputation of a foot or leg. As a person with diabetes, you are more vulnerable to foot problems, because diabetes can damage your nerves and reduce blood flow to your feet. Here are some diabetes foot care tips to follow: Wash and Dry Your Feet Daily Use mild soaps Use warm water Pat your skin dry; do not rub. Thoroughly dry your feet. After washing, use lotion on your feet to prevent cracking. Do not put lotion between your toes. Examine Your Feet Each Day Check the tops and bottoms of your feet. Have someone else look at your feet if you cannot see them. Check for dry, cracked skin. Look for blisters, cuts, scratches, or other sores. Check for redness, increased warmth, or tenderness when touching any area of your feet. Check for ingrown toenails, corns, and calluses. If you get a blister or sore from your shoes, do not pop it. Apply a bandage and wear a differentpair of shoes. Take Care of Your Toenails Cut toenails after bathing, when they are soft. Cut toenails straight across and smooth with a nail file. Avoid cutting into the corners of toes. Do not cut cuticles. If you have neuropathy (or decreased sensation in your feet) a passport support associate should always cut your toenails. Be Careful When Exercising Walk and exercise in comfortable shoes. Do not exercise when you have open sores on your feet. Protect Your Feet With Shoes and Socks Never go barefoot. Always protect your feet by wearing shoes or hard-soled slippers or footwear. Avoid shoes with high heels and pointed toes. Avoid shoes that expose your toes or heels (such as open-toed shoes or sandals). These types of shoes increase your risk for injury and potential infections. Try on new footwear with the type of socks you usually wear. Do not wear new shoes for more than an hour at a time. Change your socks daily. Look and feel inside your shoes before putting them on to make sure there are no foreign objects orrough areas. Avoid tight socks. Wear natural-fiber socks (cotton, wool, or a cotton-wool blend). Wear special shoes if your health care provider recommends them. Wear shoes/boots that will protect your feet from various weather conditions (cold, moisture, etc.). Make sure your shoes fit properly. If you have neuropathy (nerve damage), you may not notice that your shoes are too tight. Perform the footwear test described below. Footwear Test Use this simple test to see if your shoes fit correctly: Stand on a piece of paper. (Make sure you are standing and not sitting, because your foot changes shape when you stand.) Trace the outline of your foot. Trace the outline of your shoe. Compare the tracings: Is the shoe too narrow? Is your foot crammed into the shoe? The shoe should be at least 1/2 inch longer than your longest toe and as wide as your foot. Proper Shoe Choices The following types of shoes are best for people with diabetes Closed toes and heels Leather uppers without a seam inside At least 1/2 inch extra space at the end of your longest toe Inside of shoe should be soft with no rough areas Outer sole should be made of stiff material Shoes should be at least as wide as your feet Tips for Foot Care in Diabetes Don't wait to treat a minor foot problem if you have diabetes. Follow your health care provider's guidelines and first aid guidelines. Report foot injuries and infections to your health care provider immediately. Check water temperature with your elbow, not your foot. Do not use a heating pad on your feet. Do not cross your legs. Do not self-treat your corns, calluses, or other foot problems. Go to your health care provider or passport support associate to treat these conditions. documented in this encounterSelect Medical [facility] [place]09-16-2022 Instructions* Patient Instructions* Anna Hernandez APRN.COFFEE SHOP ATTENDANT - 05/02/2022 3:32 PM EDT Check to see if your insurance covers tdap vaccine and what location to get the vaccine -usually best covered at your local pharmacy where you get prescriptions filled documented in this encounterSelect Medical [facility] [place]09-16-2022 History of Present illness Narrative* Anna Hernandez APRN.CNS - 05/02/2022 2:40 PM EDT SUBJECTIVE: DILATED RETINAL EXAM due on 01/26/2021 INFLUENZA(1) due on 04/17/2022 DTAP,TDAP,TD(2 - Td or Tdap) due on 05/11/2022 HPI Kendrick Barraza is a 71 year old male. Past medical history significant for coronary artery disease status post coronary stent to LAD and diagonal 2012. Hypertension, hyperlipidemia diabetes CVA 2011, CLL and PVCs. 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 Staged PCI with drug-eluting stent to distal left circumflex on 05/04/2020. at [facility]. Dr Alexander, appointment next week S/P left posterior total hip surgery Glendy Ochoa MD 11/11/2021. Notes feeling well recovered. Walking with cane. Followed by urologist at [facility], checks PSA. Dr Mistry, hematology oncology following CLL, prostate cancer. Visit 07/2021. Notes eating more, appetite is good DIABETES MELLITUS: No report of excessive thirst or increased frequency of urination, chest pain or dyspnea , numbness, tingling orpain in extremities, new or unusual visual symptoms, low sugar/hypoglycemic reactions, weight loss/gain, lightheadedness/dizziness and bowel changes/loose stools. Patient's last HgA1C was Hemoglobin A1C (%) Date Value 04/10/2022 7.0 01/04/2022 6.2 04/13/2021 6.5 12/08/2020 7.0 Hemoglobin A1C (POCT) (%) Date Value 07/26/2021 6.4 ) Notes statin intolerance, takes ezetimibe. Sees eye doctor routinely. Review of Systems Constitutional: Negative. Respiratory: Negative. Cardiovascular: Negative. Endocrine: Negative. Objective BP 132/62 Pulse 76 Resp 16 Wt 101.2 kg (223 lb) BMI 32.93 kg/m Physical Exam Vitals and nursing note reviewed. Constitutional: Appearance: Normal appearance. HENT: Head: Normocephalic and atraumatic. Eyes: Conjunctiva/sclera: Conjunctivae normal. Cardiovascular: Rate and Rhythm: Normal rate and regular rhythm. Pulmonary: Effort: Pulmonary effort is normal. Breath sounds: Normal breath sounds. Abdominal: General: Bowel sounds are normal. Palpations: Abdomen is soft. Musculoskeletal: Right lower leg: No edema. Left lower leg: No edema. Skin: General: Skin is warm and dry. Neurological: Mental Status: He is alert. BP 132/62 Pulse 76 Resp 16 Wt 101.2 kg (223 lb) BMI 32.93 kg/m ALLERGIES Allergen Reactions Oxycodone Vomiting Ciprofloxacin Vomiting dizziness Crestor [Rosuvastat* Intolerance Severe myalgias; could not work because so severe Lipitor [Atorvastat* Other: See Comments Joint pain Pravachol [Pravasta* Intolerance myalgias Statins [Statins-Hm* Intolerance Muscle aches; so bad cannot move Medications insulin aspart U-100 (NOVOLOG FLEXPEN U-100 INSULIN) 100 unit/mL (3 mL) Inject 5 Units subcutaneously three times daily before meals. As directed when eats meals furosemide (LASIX) 40 mg tablet Take 40 mg by mouth once daily. potassium chloride 20 mEq TbER Take 1 tablet by mouth once daily. ramipril (ALTACE) 10 mg capsule Take 1 capsule by mouth once daily. blood sugar diagnostic (Advanced Surgical ConceptsTOUCH ULTRA TEST) test strip Test blood sugar(s) 4 times daily. Dx: E11.65, DM. Insulin: Yes (Meals and bedtime--4 injections) insulin glargine (LANTUS SOLOSTAR U-100 INSULIN) 100 unit/mL (3 mL) Inject 5 Units subcutaneously daily at bedtime. (Adjust as indicated) ezetimibe (ZETIA) 10 mg tablet Take 1 tablet by mouth once daily. metFORMIN ER (GLUCOPHAGE XR) 500 mg 24 hr tablet Take 4 tablets by mouth once daily. carvedilol (COREG) 12.5 mg tablet Take 1 tablet by mouth twice daily. Cholecalciferol, Vitamin D3, 125 mcg (5,000 unit) cap Take 1 capsule by mouth every other day. May switch to 2000 units daily insulin needles, DISPOSABLE, (PEN NEEDLE) 31 gauge x 5/16 ndle Use one needle per dose. 4 per day. ondansetron orally disintegrating (ZOFRAN ODT) 4 mg disintegrating tablet Take 1 tablet by mouth every 8 hours as needed for nausea/vomiting. (Patient not taking: No sig reported) acetaminophen (TYLENOL) 500 mg tablet Take 2 tablets by mouth every 8 hours as needed for pain. (Patient not taking: No sig reported) aspirin, enteric coated (ASPIRIN, ENTERIC COATED) 81 mg EC tablet Take 1 tablet by mouth twice daily. ascorbic acid, vitamin C, (VITAMIN C) 500 mg tablet Take 1 tablet by mouth twice daily with meals for 26 doses. oxyCODONE IR (ROXICODONE) 5 mg immediate release tablet Take 1-2 tablets by mouth every 6 hours as needed for pain. (Patient not taking: No sig reported) ketoconazole (NIZORAL) 2 % cream Apply 1 application to affected area once daily. (Patient not taking: No sig reported) PAST MEDICAL HISTORY Diagnosis Date CAD (coronary artery disease) Stents x 4 CHF (congestive heart failure) ([facility]) 12/22/2011 Class 1 obesity due to excess calories with body mass index (BMI) of 34.0 to 34.9 in adult 09/30/2017 CLL (chronic lymphocytic leukemia) ([facility]) 11/20/2011 cva 10/2011 left pontine infarct Diabetes mellitus without mention of complication Diabetes mellitus Diverticulosis of colon (without mention of hemorrhage) Elevated PSA 12/11/2014 HYPERLIPIDEMIA NEC/NOS 07/22/2006 HYPERTENSION NOS 07/15/2006 Obesity Pleural effusion 11/19/2011 Small lft pleural effusion Noted on chest x-ray [facility] On 11/13/11.blunting of the lft costophrenic andle. PVC (premature ventricular contraction) Uncontrolled type 2 diabetes mellitus with hyperglycemia ([facility]) 01/19/2019 Social History Tobacco Use Smoking status: Never Smokeless tobacco: Never Vaping Use Vaping Use: Never used Substance Use Topics Alcohol use: No Drug use: No Component Latest Ref Rng & Units 10/19/2021 01/04/2022 01/31/2022 04/10/2022 Protein, Total 6.3 - 8.0 g/dL 6.4 6.2 (L) 6.2 (L) Albumin 3.9 - 4.9 g/dL 4.4 4.3 4.5 Calcium 8.5 - 10.2 mg/dL 9.4 9.2 9.4 8.9 Bilirubin, Total 0.2 - 1.3 mg/dL 1.2 0.8 0.7 Alkaline Phosphatase 38 - 113 U/L 34 (L) 46 46 AST 14 - 40 U/L 21 14 10 (L) ALT 10 - 54 U/L 12 8 (L) 7 (L) Glucose 74 - 99 mg/dL 98 166 (H) 125 (H) 101 (H) BUN 9 - 24 mg/dL 16 21 33 (H) 20 Creatinine 0.73 - 1.22 mg/dL 0.92 1.06 1.33 (H) 1.07 Sodium 136 - 144 mmol/L 138 139 142 140 Potassium 3.7 - 5.1 mmol/L 4.4 4.9 5.4 (H) 4.4 Chloride 97 - 105 mmol/L 103 103 104 106 (H) CO2 22 - 30 mmol/L 22 26 25 24 Anion Gap 9 - 18 mmol/L 13 10 13 10 eGFR >=60 mL/min/1.73m 89 75 57 (L) 74 WBC 3.70 - 11.00 k/uL 6.79 6.86 7.74 RBC 4.20 - 6.00 m/uL 5.27 4.71 5.02 Hemoglobin 13.0 - 17.0 g/dL 16.6 15.1 15.8 Hematocrit 39.0 - 51.0 % 50.3 46.3 46.0 MCV 80.0 - 100.0 fL 95.4 98.3 91.6 MCH 26.0 - 34.0 pg 31.5 32.1 31.5 MCHC 30.5 - 36.0 g/dL 33.0 32.6 34.3 RDW-CV 11.5 - 15.0 % 13.1 13.3 13.0 Platelet Count 150 - 400 k/uL 167 193 208 MPV 9.0 - 12.7 fL 9.7 9.6 9.3 Absolute nRBC <0.01 k/uL <0.01 <0.01 <0.01 Cholesterol, Total <200 mg/dL 201 (H) 188 215 (H) Triglyceride <150 mg/dL 121 65 71 HDL Cholesterol >39 mg/dL 43 55 47 Non HDL Cholesterol <130 mg/dL 158 (H) 133 (H) 168 (H) Fasting Time hrs 13 12 12 VLDL Cholesterol <30 mg/dL 24 13 14 TC:HDL Ratio <5.10 4.67 3.42 4.57 LDL Cholesterol <100 mg/dL 134 (H) 120 (H) 154 (H) LDL:HDL Ratio <2.54 3.12 (H) 2.18 3.28 (H) Creatinine, Ur Random (UCRR) 20.0 - 300.0 mg/dL 176.3 Albumin, Urine Random mg/L 81.5 Albumin/Creat Ratio <30 mg/g 46 (H) Hemoglobin A1C 4.3 - 5.6 % 6.5 (H) 6.2 (H) 7.0 (H) Estimated Average Glucose mg/dL 140 131 154 Vitamin D 25 Hydroxy 31.0 - 80.0 ng/mL 41.8 ASSESSMENT/PLAN: 1. Screening for diabetic retinopathy - ICD9: V80.2, ICD10: Z13.5 routinely having eyes checked 2. Encounter for immunization - ICD9: V03.89, ICD10: Z23 - INFLUENZA SEASONAL QUADRIVALENT HIGH DOSE AGE 65+ - today - [employer] COVID-19 BIVALENT BOOSTER VACCINE, AGE 12+ YR - deferred 3. Mixed hyperlipidemia - ICD9: 272.2, ICD10: E78.2 Reported statin intolerance, taking ezetimibe Recommend a plant based diet such as Mediterranean diet with plenty of vegetables, fruits,whole grains, fish, chicken, turkey or plant proteins and routine exercise such as walking - EZETIMIBE 10 MG TABLET 4. Controlled type 2 diabetes mellitus without complication, with long-term current use of insulin (HCC) - ICD9: 250.00, V58.67, ICD10: E11.9, Z79.4 Stable, currently controlled, continue to monitor. Continue current treatment unchanged. Endorsed DM diet and routine exercise as tolerated. 5. Coronary artery disease involving [place] heart without angina pectoris, unspecified vessel or lesion type - ICD9: 414.01, ICD10: I25.10 6. Primary hypertension - ICD9: 401.9, ICD10: I10 7. Chronic congestive heart failure, unspecified heart failure type (HCC) - ICD9: 428.0, ICD10: I50.9 Stable, currently controlled, continue to monitor. Continue current treatment unchanged Followed by [facility] 3 mo follow up scheduled. 6 mo follow up MD Anna Rosas HARVEST SUPERVISOR.MICHELLE Medical Decision Making: Problems: Moderate: 2+ stable chronic illnesses Data: Unique test(s) ordered: 2 Risk: Moderate: Drug management Medical Decision Making Level: 4 - Moderate documented in this encounterSelect Medical [facility]09-03-2022 Miscellaneous Notes* Telephone Encounter - Annemarie Zimmerman LPN - 04/19/2022 10:25 AM EDT called and states pt is out of test strips and [facility] not able to refill script. states they were told pharmacy needed information from our office. I called the pharmacy and spoke with the pharmacist. She states they are going thru an audit and it looks like pt's prescription is waiting to be released on there end. They do not need anything from us. Pharmacist not able to give the test strips pt needs till order till this is released. Pharmacist states have pt come in and they will give pt a meter and strips till his prescription is released on their end. Annemarie Zimmerman LPN documented in this encounterSelect Medical [facility]08-21-2022 History of Present illness Narrative* Evie Grewal MD - 04/06/2022 5:54 PM EDT Labs ordered for April appointment documented in this encounterSelect Medical [facility] [place]08-08-2022 History of Present illness Narrative* Hakan Hill RN - 03/24/2022 10:16 AM EDT INSIGHT CDM TELEPHONIC OUTREACH Provider Action/FYI: Spk with Pt he denies CHF or other symptoms or needs. Contact made with patient: Yes Patient identified by name and . Discussed care with patient It s nice talking to you again. As a reminder, this is our bi-weekly check-in where I will be asking you questions about your health. This will only take a few minutes of your time. Is this a good time? Yes Symptoms What Chronic Disease(s) does the patient have: CHF Do you check your blood pressures at home? Yes, Enter readings: Not available Do you have new or worse shortness of breath with activity? No Do you have new or worsening trouble breathing while lying flat? No Do you have new or worsening swelling of legs, feet or ankles? No Do you check your daily weight at home? Yes, Have you noticed a sudden gain in weight greater than three pounds in a day or three pounds in a week? No Are you having any other symptoms that your PCP needs to know about? No Symptom Escalation The patient required an escalation for symptom(s)? No Medications Do you have any questions about taking your medication or which medications you should be on? No Do you need any medication refills at this time, including any of the medications you might take only when needed? No Social We would like to make sure you have what you need so that your basic needs are met- including your personal safety, food, housing and medications? Would you like to speak with a social work hospice team lead to help give you support for any of these needs? No It can be normal to feel anxious or down during a time like this. Would you like to talk to a mental health professional about how you have been feeling? No Closing Thank you for taking the time to talk with me today. We want to work with you to ensure that we arekeeping your medical condition(s) well-controlled and to keep you healthy and out of the doctor's office or hospital. It s also not too late for me to sign you up for automated weekly questionnaires through [employer]. This is an easy way for us to stay connected each week. Are you interested? No, I understand. We can always sign you up in the future if you change your mind. Just as a reminder, will continue to call you every other week to check in on your health. Our calls should take 10-15 minutes or less. Remember, if you have concerns in between our calls, please call your PCP's office right away. Thank you. Enter next patient outreach date for two weeks on the same day of the week as today in the Track PtOutreach and End outreach. Thomas Mcclendon RN March 24, 2022 10:16 AM documented in this encounterSelect Medical [facility]07-22-2022 History of Present illness Narrative* Hakan Hill RN - 03/07/2022 10:48 AM EDT INSIGHT CDM TELEPHONIC OUTREACH Provider Action/FYI: Spk with Pt he denies new or worsening CHF or other symptoms, denies edema, wt 215 lbs, BP 106/58 Denies hip / leg pain, mowing Contact made with patient: Yes Patient identified by name and . Discussed care with patient It s nice talking to you again. As a reminder, this is our bi-weekly check-in where I will be asking you questions about your health. This will only take a few minutes of your time. Is this a good time? Yes Symptoms What Chronic Disease(s) does the patient have: CHF Do you check your blood pressures at home? Yes, Enter readings: 106/58 Do you have new or worse shortness of breath with activity? No Do you have new or worsening trouble breathing while lying flat? No Do you have new or worsening swelling of legs, feet or ankles? No Do you check your daily weight at home? Yes, Have you noticed a sudden gain in weight greater than three pounds in a day or three pounds in a week? No Are you having any other symptoms that your PCP needs to know about? No Symptom Escalation The patient required an escalation for symptom(s)? No Medications Do you have any questions about taking your medication or which medications you should be on? No Do you need any medication refills at this time, including any of the medications you might take only when needed? No Social We would like to make sure you have what you need so that your basic needs are met- including your personal safety, food, housing and medications? Would you like to speak with a social work hospice team lead to help give you support for any of these needs? No It can be normal to feel anxious or down during a time like this. Would you like to talk to a mental health professional about how you have been feeling? No Closing Thank you for taking the time to talk with me today. We want to work with you to ensure that we arekeeping your medical condition(s) well-controlled and to keep you healthy and out of the doctor's office or hospital. It s also not too late for me to sign you up for automated weekly questionnaires through [employer]. This is an easy way for us to stay connected each week. Are you interested? No, I understand. We can always sign you up in the future if you change your mind. Just as a reminder, will continue to call you every other week to check in on your health. Our calls should take 10-15 minutes or less. Remember, if you have concerns in between our calls, please call your PCP's office right away. Thank you. Enter next patient outreach date for two weeks on the same day of the week as today in the Track PtOutreach and End outre Thomas Mcclendon RN March 07, 2022 10:48 AM documented in this encounterSelect Medical [facility]07-01-2022 History of Present illness Narrative* Hakan Hill RN - 02/14/2022 1:35 PM EDT INSIGHT CDM TELEPHONIC OUTREACH Provider Action/FYI: Call to Pt left a message to verify CHF or other symptom status and needs. Contact made with patient: No - Left message Jeylo my name is Thomas Mcclendon RN your [employer] Law Clerk from the [facility] I am callingtoday for your bi-weekly check in. I am sorry I missed your call. I will reach out to you again tomorrow. (if the third call I will reach out to you again next week) Enter next patient outreach date for the following day using the Track Pt Outreach. End outreach. Thomas Mcclendon RN February 14, 2022 1:35 PM documented in this encounterSelect Medical [facility] [place]07-01-2022 Miscellaneous Notes* Telephone Encounter - Malinda Rodriguez Ma - 02/14/2022 10:56 AM EDT Signed and faxed to number below * Telephone Encounter - Autumn Santiago LPN - 02/13/2022 10:32 AM EDT Printed office notes for PCP to sign and fax. * Telephone Encounter - Evie Grewal MD - 02/13/2022 8:49 AM EDT Progress note completed. Discussed need to check sugars 4 times daily Print for me to sign so can fax to pharmacist * Telephone Encounter - Stephanie Saenz RN - 02/11/2022 9:41 AM EDT Pharmacist from [facility] pharmacy states that insurance is requiring notes that are signed by provider stating why patient needs to check his blood sugar 4 times a day. Otherwise order needs to be changed for patient to check blood sugar 3 times a day. Please faxed signed notes to . Please review and advise, Stephanie Saenz RN documented in this encounterSelect Medical [facility] [place]07-01-2022 Instructions* Patient Instructions* Papa Cong - 02/14/2022 9:36 AM EDT Diabetes Foot Care Instructions When you have diabetes, proper foot care is very important. Poor foot care may lead to amputation of a foot or leg. As a person with diabetes, you are more vulnerable to foot problems, because diabetes can damage your nerves and reduce blood flow to your feet. Here are some diabetes foot care tips to follow: Wash and Dry Your Feet Daily Use mild soaps Use warm water Pat your skin dry; do not rub. Thoroughly dry your feet. After washing, use lotion on your feet to prevent cracking. Do not put lotion between your toes. Examine Your Feet Each Day Check the tops and bottoms of your feet. Have someone else look at your feet if you cannot see them. Check for dry, cracked skin. Look for blisters, cuts, scratches, or other sores. Check for redness, increased warmth, or tenderness when touching any area of your feet. Check for ingrown toenails, corns, and calluses. If you get a blister or sore from your shoes, do not pop it. Apply a bandage and wear a differentpair of shoes. Take Care of Your Toenails Cut toenails after bathing, when they are soft. Cut toenails straight across and smooth with a nail file. Avoid cutting into the corners of toes. Do not cut cuticles. If you have neuropathy (or decreased sensation in your feet) a passport support associate should always cut your toenails. Be Careful When Exercising Walk and exercise in comfortable shoes. Do not exercise when you have open sores on your feet. Protect Your Feet With Shoes and Socks Never go barefoot. Always protect your feet by wearing shoes or hard-soled slippers or footwear. Avoid shoes with high heels and pointed toes. Avoid shoes that expose your toes or heels (such as open-toed shoes or sandals). These types of shoes increase your risk for injury and potential infections. Try on new footwear with the type of socks you usually wear. Do not wear new shoes for more than an hour at a time. Change your socks daily. Look and feel inside your shoes before putting them on to make sure there are no foreign objects orrough areas. Avoid tight socks. Wear natural-fiber socks (cotton, wool, or a cotton-wool blend). Wear special shoes if your health care provider recommends them. Wear shoes/boots that will protect your feet from various weather conditions (cold, moisture, etc.). Make sure your shoes fit properly. If you have neuropathy (nerve damage), you may not notice that your shoes are too tight. Perform the footwear test described below. Footwear Test Use this simple test to see if your shoes fit correctly: Stand on a piece of paper. (Make sure you are standing and not sitting, because your foot changes shape when you stand.) Trace the outline of your foot. Trace the outline of your shoe. Compare the tracings: Is the shoe too narrow? Is your foot crammed into the shoe? The shoe should be at least 1/2 inch longer than your longest toe and as wide as your foot. Proper Shoe Choices The following types of shoes are best for people with diabetes Closed toes and heels Leather uppers without a seam inside At least 1/2 inch extra space at the end of your longest toe Inside of shoe should be soft with no rough areas Outer sole should be made of stiff material Shoes should be at least as wide as your feet Tips for Foot Care in Diabetes Don't wait to treat a minor foot problem if you have diabetes. Follow your health care provider's guidelines and first aid guidelines. Report foot injuries and infections to your health care provider immediately. Check water temperature with your elbow, not your foot. Do not use a heating pad on your feet. Do not cross your legs. Do not self-treat your corns, calluses, or other foot problems. Go to your health care provider or passport support associate to treat these conditions. documented in this encounter[facility] [place] History of Present illness Narrative* Papa Gar - 02/14/2022 9:35 AM EDT Subjective: Patient presents to clinic c/o painful toenails. They state that the nails are especially painful with shoe gear and pressure. Patient states that nails 1-5 b/l are painful. Patient admits to being diabetic. No other pedal complaints at this time. Patient states no change in medications or medical history since last visit. Objective: Patient presents to clinic ambulating in diabetic shoes Vasc: DP and PT pulses are nonpalpable bilateral. CFT is less than 5 seconds bilateral. Skin temperature is warm to cool proximal to distal bilateral. There is severe edema or varicosities noted. Neuro: Protective sensation is absent to the foot and toes when tested with the 5.07 SWM bilateral.Vibratory sensation is absent at the hallux IPJ bilateral. The hallux is downgoing bilateral. Derm: Nails 1-5 b/l are painful, discolored-yellow, thick, crumbly, dystrophic and with subungal debris. Skin is of normal turgor, texture and hair growth is absent bilateral. There are no hyperkeratosis, ulcerations, scars, verruca or other lesions noted. Ortho: Muscle strength is 5/5 for all pedal groups tested. Ankle joint DF is decreased with the knee extended with no pain or crepitus noted. 1st MPJ ROM is decreased bilateral. Assessment: (B35.1) Onychomycosis (primary encounter diagnosis) (M79.675) Pain in toe of left foot (M79.674) Pain in toe of right foot (E11.42) Diabetic polyneuropathy associated with type (I73.9) PAD (peripheral artery disease) ([facility]) (L85.3) Xerosis cutis (I87.2) Venous insufficiency Plan: Patient was seen and evaluated. Nails 1-5 bilateral were debrided in length and thickness. Patient was scheduled earlier than he should have been for nail care and for this reason, will do this as courtesy. Patient was instructed on the continued importance of diabetic foot care along with proper diet andkeeping their blood sugar under control to prevent complications. Recommend compression for lower extremity edema. Patient is to RTC in 3-4 months. Papa Gar DPM * Honey Haney LPN - 02/14/2022 9:05 AM EDT Patient presents with: Left Foot - Established Patient, Follow Up Right Foot - Established Patient, Follow Up Honey Haney LPN documented in this encounterSelect Medical [facility] [place] History of Present illness Narrative* Evie Grewal MD - 01/31/2022 2:56 PM EDT This note was created using [employer]. Subjective Kendrick Barraza is a 71 year old male. Patient presents with: Follow Up SUBJECTIVE: Kendrick Barraza is a 71 year old year old gentleman here today for 3 month follow up appointment for review of medical conditions. Leg swelling is gradually going down with Lasix 40 mg daily along with potassium 20meq daily. Labs were already checked December and okay. Will get labs at [facility] Noted that had hard time controlling sugars right after hip surgery. Did increase insulin to get controlled . Reviewed sugar log. Almost all sugars are to goals with AM 150 or better and rest od day <180. Rare 200 later in the day. Just occasional one in 70s. None <70. Does not mind checking sugars 4 times daily. Lantus 5 to 10 units at bedtime. Novolog--5 to 8 units with meals (most of the time 8). Reviewed had COVID last June and still has issues with taste buds. Eating okay but has to make himself eat. Everything tastes like cardboard. Does see eye doctor yearly. PAST MEDICAL HISTORY Diagnosis Date CAD (coronary artery disease) Stents x 4 CHF (congestive heart failure) ([facility]) 12/22/2011 Class 1 obesity due to excess calories with body mass index (BMI) of 34.0 to 34.9 in adult 09/30/2017 CLL (chronic lymphocytic leukemia) ([facility]) 11/20/2011 cva 10/2011 left pontine infarct Diabetes mellitus without mention of complication Diabetes mellitus Diverticulosis of colon (without mention of hemorrhage) Elevated PSA 12/11/2014 HYPERLIPIDEMIA NEC/NOS 07/22/2006 HYPERTENSION NOS 07/15/2006 Obesity Pleural effusion 11/19/2011 Small lft pleural effusion Noted on chest x-ray wc On 11/13/11.blunting of the lft costophrenic andle. PVC (premature ventricular contraction) Uncontrolled type 2 diabetes mellitus with hyperglycemia ([facility]) 01/19/2019 Current Outpatient Medications Medication Sig furosemide (LASIX) 40 mg tablet Take 40 mg by mouth once daily. potassium chloride 20 mEq TbER Take 1 tablet by mouth once daily. ondansetron orally disintegrating (ZOFRAN ODT) 4 mg disintegrating tablet Take 1 tablet by mouth every 8 hours as needed for nausea/vomiting. acetaminophen (TYLENOL) 500 mg tablet Take 2 tablets by mouth every 8 hours as needed for pain. aspirin, enteric coated (ASPIRIN, ENTERIC COATED) 81 mg EC tablet Take 1 tablet by mouth twice daily. ascorbic acid, vitamin C, (VITAMIN C) 500 mg tablet Take 1 tablet by mouth twice daily with meals for 26 doses. oxyCODONE IR (ROXICODONE) 5 mg immediate release tablet Take 1-2 tablets by mouth every 6 hours as needed for pain. insulin aspart U-100 (NOVOLOG FLEXPEN U-100 INSULIN) 100 unit/mL (3 mL) Inject 5 Units subcutaneously three times daily before meals. As directed when eats meals insulin glargine (LANTUS SOLOSTAR U-100 INSULIN) 100 unit/mL (3 mL) Inject 5 Units subcutaneously daily at bedtime. (Adjust as indicated) ezetimibe (ZETIA) 10 mg tablet Take 1 tablet by mouth once daily. metFORMIN ER (GLUCOPHAGE XR) 500 mg 24 hr tablet Take 4 tablets by mouth once daily. carvedilol (COREG) 12.5 mg tablet Take 1 tablet by mouth twice daily. blood sugar diagnostic (BozukoUCH ULTRA TEST) test strip Test blood sugar(s) 3 times daily. Dx: E11.65, DM. Insulin: Yes ramipril (ALTACE) 10 mg capsule Take 1 capsule by mouth once daily. Cholecalciferol, Vitamin D3, 125 mcg (5,000 unit) cap Take 1 capsule by mouth every other day. May switch to 2000 units daily insulin needles, DISPOSABLE, (PEN NEEDLE) 31 gauge x 5/16 ndle Use one needle per dose. 4 per day. ketoconazole (NIZORAL) 2 % cream Apply 1 application to affected area once daily. No current facility-administered medications for this visit. Review of Systems Objective BP 142/76 Pulse 78 Wt 97.1 kg (214 lb) SpO2 96% BMI 31.60 kg/m Last 5 Encounter Wt Readings: Date: Wt: 01/31/2022 97.1 kg (214 lb) 11/13/2021 88.5 kg (195 lb) 11/01/2021 90.7 kg (200 lb) 11/01/2021 90.7 kg (200 lb) 10/01/2021 92.3 kg (203 lb 7.8 oz) No waist measurement recorded Estimated body mass index is 31.6 kg/m as calculated from the following: Height as of 11/11/21: 175.3 cm (5' 9). Weight as of this encounter: 97.1 kg (214 lb). Last 5 Encounter BP Readings: Date: BP: 01/31/2022 142/76 12/11/2021 160/70 12/09/2021 130/60 12/05/2021 118/68 12/02/2021 118/66 01/31/22 1440 01/31/22 1523 BP: 142/76 132/68 Pulse: 78 SpO2: 96% Weight: 97.1 kg (214 lb) Physical Exam Vitals reviewed. Constitutional: Appearance: Normal appearance. Eyes: Conjunctiva/sclera: Conjunctivae normal. Cardiovascular: Rate and Rhythm: Normal rate and regular rhythm. Heart sounds: Normal heart sounds. Pulmonary: Effort: Pulmonary effort is normal. Breath sounds: Normal breath sounds. Musculoskeletal: Right lower le+ Edema present. Skin: General: Skin is warm and dry. Neurological: General: No focal deficit present. Mental Status: He is alert and oriented to person, place, and time. Psychiatric: Mood and Affect: Mood normal. Behavior: Behavior normal. Component Latest Ref Rng & Units 08/16/2020 12/08/2020 04/13/2021 07/13/2021 07/26/2021 10/19/2021 11/12/2021 01/04/2022 Protein, Total 6.3 - 8.0 g/dL 6.1 (L) 6.0 (L) 6.4 6.2 (L) Albumin 3.9 - 4.9 g/dL 4.4 4.2 4.4 4.3 Calcium 8.5 - 10.2 mg/dL 8.9 9.5 9.0 9.4 8.6 9.2 Bilirubin, Total 0.2 - 1.3 mg/dL 1.2 1.1 1.2 0.8 Alkaline Phosphatase 38 - 113 U/L 46 39 34 (L) 46 AST 14 - 40 U/L 12 (L) 16 21 14 Glucose 74 - 99 mg/dL 99 114 (H) 82 98 159 (H) 166 (H) BUN 9 - 24 mg/dL 28 (H) 19 16 16 25 (H) 21 Creatinine 0.73 - 1.22 mg/dL 1.02 0.98 0.99 0.92 1.12 1.06 Sodium 136 - 144 mmol/L 137 139 140 138 137 139 Potassium 3.7 - 5.1 mmol/L 4.4 4.3 4.0 4.4 4.4 4.9 Chloride 97 - 105 mmol/L 103 104 106 (H) 103 101 103 CO2 22 - 30 mmol/L 24 24 24 22 28 26 Anion Gap 9 - 18 mmol/L 10 11 10 13 8 (L) 10 ALT 10 - 54 U/L 11 9 (L) 12 8 (L) eGFR- >60 >60 >60 eGFR-All Other Races . >60 >60 >60 eGFR >=60 mL/min/1.73m 89 70 75 Cholesterol, Total <200 mg/dL 172 204 (H) 201 (H) 188 Triglyceride <150 mg/dL 92 107 121 65 HDL Cholesterol >39 mg/dL 41 46 43 55 LDL Cholesterol <100 mg/dL 113 (H) 137 (H) 134 (H) 120 (H) Non HDL Cholesterol <130 mg/dL 131 (H) 158 (H) 158 (H) 133 (H) Fasting Time hrs 14 12 13 12 VLDL Cholesterol <30 mg/dL 18 21 24 13 TC:HDL Ratio <5.10 4.20 4.43 4.67 3.42 LDL:HDL Ratio <2.54 2.76 (H) 2.98 (H) 3.12 (H) 2.18 Creatinine, Ur Random (UCRR) 20 - 300 mg/dL 84.4 Albumin, Urine Random mg/L 44.1 Albumin/Creat Ratio <30 mg/g 52 (H) Hemoglobin A1C 4.3 - 5.6 % 7.2 (H) 7.0 (H) 6.5 (H) 6.5 (H) 6.2 (H) Estimated Average Glucose mg/dL 160 154 140 140 131 Hemoglobin A1C (POCT) 4.2 - 5.6 % 6.4 Assessment and Plan ASSESSMENT/PLAN: 1. Controlled type 2 diabetes mellitus without complication, with long-term current use of insulin ([facility]) - ICD9: 250.00, V58.67, ICD10: E11.9, Z79.4 (primary diagnosis) Controlled. - Continue current medications - Blood glucose monitoring on a four times a day schedule secondary to tight control with insulin injections 4 times daily (meals and bedtime). Has had problems with intermittent lows and highs before, but has been doing better the past few months with checking sugars frequently and adjusting insulin doses as needed. Needs to keep checking sugars 4 times daily plus as needed for symptoms of hyper- and hypo-glycemia. - Encouraged regular aerobic exercise and weight loss - BASIC METABOLIC PNL - [employer] ConceptsTOUCH ULTRA TEST STRIPS 2. Essential hypertension, benign - ICD9: 401.1, ICD10: I10 - fair control - Continue current medication(s) - Recommended regular aerobic exercise. - Recommend home blood pressure monitoring, to bring results in on next visit - Goal of BP at least <140/90 - Goal of BP <130/80 ideally - BASIC METABOLIC PNL - RAMIPRIL 10 MG CAPSULE 3. Bilateral lower extremity edema - ICD9: 782.3, ICD10: R60.0 Continue present management. - FUROSEMIDE 40 MG TABLET - POTASSIUM CHLORIDE ER 20 MEQ TABLET,EXTENDED RELEASE 4. Vitamin D deficiency - ICD9: 268.9, ICD10: E55.9 Level good Continue present management. - VITAMIN D 25 HYDROXY 5. Mixed hyperlipidemia - ICD9: 272.2, ICD10: E78.2 - suboptimal control - Continue current medication. - Encouraged following a low fat, low cholesterol diet. - Discussed the benefits of regular aerobic exercise and weight loss. - Encouraged following a low carbohydrate, healthy oil intake diet. 6. Encounter for long-term current use of medication - ICD9: V58.69, ICD10: Z79.899 - BASIC METABOLIC PNL Evie Grewal MD documented in this encounterSelect Medical [facility] [place] History of Present illness Narrative* Hakan Hill RN - 01/29/2022 4:07 PM EDT [facility] Provider Action/FYI: Spk with Pt he was seen by Dr. [facility] 01/24/22 for CHF prescribed Lasix 40 mg po dailyand Potassium 20 Meq po daily. Pt reports decreased foot edema, wt 217 lbs, BP 140/54, denies Sob, cough or wheezes, denies other symptoms or needs. Contact made with patient: Yes Patient identified by name and . Discussed care with patient It s nice talking to you again. As a reminder, this is our bi-weekly check-in where I will be asking you questions about your health. This will only take a few minutes of your time. Is this a good time? Yes Symptoms What Chronic Disease(s) does the patient have: CHF Do you check your blood pressures at home? Yes, Enter readings: 140/54 Do you have new or worse shortness of breath with activity? No Do you have new or worsening trouble breathing while lying flat? No Do you have new or worsening swelling of legs, feet or ankles? No Do you check your daily weight at home? Yes, Have you noticed a sudden gain in weight greater than three pounds in a day or three pounds in a week? No Are you having any other symptoms that your PCP needs to know about? No Symptom Escalation The patient required an escalation for symptom(s)? No Medications Do you have any questions about taking your medication or which medications you should be on? No Do you need any medication refills at this time, including any of the medications you might take only when needed? No Social We would like to make sure you have what you need so that your basic needs are met- including your personal safety, food, housing and medications? Would you like to speak with a social work hospice team lead to help give you support for any of these needs? No It can be normal to feel anxious or down during a time like this. Would you like to talk to a mental health professional about how you have been feeling? No Closing Thank you for taking the time to talk with me today. We want to work with you to ensure that we arekeeping your medical condition(s) well-controlled and to keep you healthy and out of the doctor's office or hospital. It s also not too late for me to sign you up for automated weekly questionnaires through [employer]. This is an easy way for us to stay connected each week. Are you interested? No, I understand. We can always sign you up in the future if you change your mind. Just as a reminder, will continue to call you every other week to check in on your health. Our calls should take 10-15 minutes or less. Remember, if you have concerns in between our calls, please call your PCP's office right away. Thank you. Enter next patient outreach date for two weeks on the same day of the week as today in the Track PtOutreach and End outreach. Thomas Mcclendon RN January 29, 2022 4:07 PM documented in this encounterSelect Medical [facility] [place] History of Present illness Narrative* Hakan Hill RN - 01/14/2022 12:02 PM EDT [facility]LE[facility]RE[facility] Provider Action/FYI: Routed update to Dr. Grewal- No action required Hx: 7 weeks out from left Posterior BJ Spk with Pt he reported mild intermittent Left foot edema, Pt is elevating leg as needed which relieves the swelling, denies pain Pt completed Appt 12/31/[address] Ochoa Orthropedic surgeon an ultrasound was ordered -Negative study for proximal DVT in the left and right lower extremities. Wt 210, BP 110/60 Pt has Appt on 01/31/22 With PCP and Podiatry Instructed to notify PCP/ Surgeon for any new or worsening symptoms. Pt verbalized understanding. Contact made with patient: Yes Patient identified by name and . Discussed care with patient It s nice talking to you again. As a reminder, this is our bi-weekly check-in where I will be asking you questions about your health. This will only take a few minutes of your time. Is this a good time? Yes Symptoms What Chronic Disease(s) does the patient have: CHF Do you check your blood pressures at home? Yes, Enter readings: 110/60 Do you have new or worse shortness of breath with activity? No Do you have new or worsening trouble breathing while lying flat? No Do you have new or worsening swelling of legs, feet or ankles? Yes Do you check your daily weight at home? Yes, Have you noticed a sudden gain in weight greater than three pounds in a day or three pounds in a week? No Are you having any other symptoms that your PCP needs to know about? Yes Symptom Escalation The patient required an escalation for symptom(s)? No Medications Do you have any questions about taking your medication or which medications you should be on? No Do you need any medication refills at this time, including any of the medications you might take only when needed? No Social We would like to make sure you have what you need so that your basic needs are met- including your personal safety, food, housing and medications? Would you like to speak with a social work hospice team lead to help give you support for any of these needs? No It can be normal to feel anxious or down during a time like this. Would you like to talk to a mental health professional about how you have been feeling? No Closing Thank you for taking the time to talk with me today. We want to work with you to ensure that we arekeeping your medical condition(s) well-controlled and to keep you healthy and out of the doctor's office or hospital. It s also not too late for me to sign you up for automated weekly questionnaires through [employer]. This is an easy way for us to stay connected each week. Are you interested? No, I understand. We can always sign you up in the future if you change your mind. Just as a reminder, will continue to call you every other week to check in on your health. Our calls should take 10-15 minutes or less. Remember, if you have concerns in between our calls, please call your PCP's office right away. Thank you. Enter next patient outreach date for two weeks on the same day of the week as today in the Track PtOutreach and End outreach. Thomas Mcclendon RN January 14, 2022 12:02 PM documented in this encounterSelect Medical [facility] [place]-24-2022 Instructions* Patient Instructions* Papa Gar - 01/07/2022 1:32 PM EDT Diabetes Foot Care Instructions When you have diabetes, proper foot care is very important. Poor foot care may lead to amputation of a foot or leg. As a person with diabetes, you are more vulnerable to foot problems, because diabetes can damage your nerves and reduce blood flow to your feet. Here are some diabetes foot care tips to follow: Wash and Dry Your Feet Daily Use mild soaps Use warm water Pat your skin dry; do not rub. Thoroughly dry your feet. After washing, use lotion on your feet to prevent cracking. Do not put lotion between your toes. Examine Your Feet Each Day Check the tops and bottoms of your feet. Have someone else look at your feet if you cannot see them. Check for dry, cracked skin. Look for blisters, cuts, scratches, or other sores. Check for redness, increased warmth, or tenderness when touching any area of your feet. Check for ingrown toenails, corns, and calluses. If you get a blister or sore from your shoes, do not pop it. Apply a bandage and wear a differentpair of shoes. Take Care of Your Toenails Cut toenails after bathing, when they are soft. Cut toenails straight across and smooth with a nail file. Avoid cutting into the corners of toes. Do not cut cuticles. If you have neuropathy (or decreased sensation in your feet) a passport support associate should always cut your toenails. Be Careful When Exercising Walk and exercise in comfortable shoes. Do not exercise when you have open sores on your feet. Protect Your Feet With Shoes and Socks Never go barefoot. Always protect your feet by wearing shoes or hard-soled slippers or footwear. Avoid shoes with high heels and pointed toes. Avoid shoes that expose your toes or heels (such as open-toed shoes or sandals). These types of shoes increase your risk for injury and potential infections. Try on new footwear with the type of socks you usually wear. Do not wear new shoes for more than an hour at a time. Change your socks daily. Look and feel inside your shoes before putting them on to make sure there are no foreign objects orrough areas. Avoid tight socks. Wear natural-fiber socks (cotton, wool, or a cotton-wool blend). Wear special shoes if your health care provider recommends them. Wear shoes/boots that will protect your feet from various weather conditions (cold, moisture, etc.). Make sure your shoes fit properly. If you have neuropathy (nerve damage), you may not notice that your shoes are too tight. Perform the footwear test described below. Footwear Test Use this simple test to see if your shoes fit correctly: Stand on a piece of paper. (Make sure you are standing and not sitting, because your foot changes shape when you stand.) Trace the outline of your foot. Trace the outline of your shoe. Compare the tracings: Is the shoe too narrow? Is your foot crammed into the shoe? The shoe should be at least 1/2 inch longer than your longest toe and as wide as your foot. Proper Shoe Choices The following types of shoes are best for people with diabetes Closed toes and heels Leather uppers without a seam inside At least 1/2 inch extra space at the end of your longest toe Inside of shoe should be soft with no rough areas Outer sole should be made of stiff material Shoes should be at least as wide as your feet Tips for Foot Care in Diabetes Don't wait to treat a minor foot problem if you have diabetes. Follow your health care provider's guidelines and first aid guidelines. Report foot injuries and infections to your health care provider immediately. Check water temperature with your elbow, not your foot. Do not use a heating pad on your feet. Do not cross your legs. Do not self-treat your corns, calluses, or other foot problems. Go to your health care provider or passport support associate to treat these conditions. Recommend jero wrap and guaze to left leg documented in this encounterSelect [facility] History of Present illness Narrative* Papa Gar - 01/07/2022 1:20 PM EDT Last saw Dr. Grewal: 11/01/21 Subjective: Patient presents to clinic c/o painful toenails. They state that the nails are especially painful with shoe gear and pressure. Patient states that nails 1-5 b/l are painful. Patient admits to being diabetic. Does report some swelling in his left leg. He also reports that he recently bumped his left leg and has a superficial abrasion to the leg. No other pedal complaints at this time. Patient states no change in medications or medical history since last visit. Objective: Patient presents to clinic ambulating in diabetic shoes. Vasc: DP and PT pulses are faintly palpable bilateral. CFT is less than 5 seconds bilateral. Skin temperature is warm to cool proximal to distal bilateral. There is severe edema or varicosities noted. Neuro: Protective sensation is absent to the foot and toes when tested with the 5.07 SWM bilateral.Vibratory sensation is absent at the hallux IPJ bilateral. The hallux is downgoing bilateral. Derm: Nails 1-5 b/l are painful, discolored-yellow, thick, crumbly, dystrophic and with subungal debris. Skin is of normal turgor, texture and hair growth is absent bilateral. There is superficial, noninfected ulceration of left leg due to swelling. Ortho: Muscle strength is 5/5 for all pedal groups tested. Ankle joint DF is decreased with the knee extended with no pain or crepitus noted. 1st MPJ ROM is decreased bilateral. Assessment: (B35.1) Onychomycosis (primary encounter diagnosis) (M79.675) Pain in toe of left foot (M79.674) Pain in toe of right foot (E11.42) Diabetic polyneuropathy associated with type 2 diabetes mellitus ([facility]) (I73.9) PAD (peripheral artery disease) ([facility]) (I87.2) Venous insufficiency Plan: Patient was seen and evaluated. Nails 1-5 bilateral were debrided in length and thickness. Small bleed to right hallux. Band aid applied Discussed swelling in left leg. He has superficial noninfected ulceration. Recommend guaze, topicalantibiotic and jero wrap. Patient was instructed on the continued importance of diabetic foot care along with proper diet andkeeping their blood sugar under control to prevent complications. Patient is to RTC in 3 weeks Papa Gar DPM * Annemarie Hills - 01/07/2022 1:15 PM EDT Patient presents with: Right Foot - Follow Up Left Foot - Follow Up Nail Care AMB ROOMING INTAKE FLOWSHEET DATA No pain noted. Had Left total hip replacement 11/11/2021. Doing well. Notes some swelling of ankle. Annemarie Hills documented in this encounterSelect Medical [facility]-17-[facility]22 NoteHNO ID: [id number] Author: HOPE Lundberg Service: Radiology Author Type: Technologist Type: Progress Notes Filed: 12/31/2021 4:55 PM Note Text: Radiology Service Progress Note PATIENT NAME: Kendrick Barraza DATE OF SERVICE: December 31, 2021 TIME: 4:55 PM PATIENT IDENTITY VERIFICATION COMPLETED USING TWO (2) IDENTIFIERS: Name and Date of confirmed by patient verbally and Name and Date of confirmed by identification band. FALL SCREENING: Has the patient had 2 falls in the last year or 1 fall with injury or currently using an Ambulatory Assistive Device (Walker, Cane, Wheelchair, Crutches, etc.)? Yes, Patient High Risk for Falls What interventions were put in place to prevent falls during this visit? Instructed Patient to Call for Help if Needed, Offered Assistance with Transfers/Clothing, Instructed Patient to Remain Seated (Not on Exam Table) Until Exam, and Increased Observations by Caregivers PATIENT GENDER DATA: Male PATIENT RELEVANT IMPLANT DATA REVIEWED: Not Applicable RADIOLOGY DEPARTMENT: Ultrasound PERIPHERAL IV DATA: Not applicable SIGNED BY: HOPE Lundberg December 31, 2021 4:55 PMVan [facility] [id number] History of Present illness Narrative* HOPE Lundberg - 12/31/2021 4:00 PM EDT Radiology Service Progress Note PATIENT NAME: Kendrick Barraza DATE OF SERVICE: December 31, 2021 TIME: 4:55 PM PATIENT IDENTITY VERIFICATION COMPLETED USING TWO (2) IDENTIFIERS: Name and Date of confirmedby patient verbally and Name and Date of confirmed by identification band. FALL SCREENING: Has the patient had 2 falls in the last year or 1 fall with injury or currently using an Ambulatory Assistive Device (Walker, Cane, Wheelchair, Crutches, etc.)? Yes, Patient High Riskfor Falls What interventions were put in place to prevent falls during this visit? Instructed Patient to Callfor Help if Needed, Offered Assistance with Transfers/Clothing, Instructed Patient to Remain Seated(Not on Exam Table) Until Exam, and Increased Observations by Caregivers PATIENT GENDER DATA: Male PATIENT RELEVANT IMPLANT DATA REVIEWED: Not Applicable RADIOLOGY DEPARTMENT: Ultrasound PERIPHERAL IV DATA: Not applicable SIGNED BY: HOPE Lundberg December 31, 2021 4:55 PM documented in this encounterSelect [facility] [place]05-17-[facility]22 History of Present illness Narrative* Glendy Ochoa MD - 12/31/2021 3:26 PM EDT Post-op Office Visit Kendrick Barraza 71 year old December 31, 2021 3:26 PM Surgery Date: 11/11/21 History: Kendrick Barraza Is now 7 weeks out from left Posterior BJ. Post-operative course has been without complication. No readmission/complications Subjective: Patient reports no pain. Overall is doing well. off ambulatory aid off opioid pain medication Has already mowed his lawn Is very happy Objective: Ambulates with minimal limp Incision well-approximated, no drainage, normal christiana-incisional erythema Arcs of motion at hip are comfortable and fluid Distally DP/PT palpable Distally S/S/SP/DP/T intact at baseline Distally DF/EHL/PF intact at baseline Negative mary/calf tenderness Xrays: No new today Assessment and Plan: Kendrick Barraza Is here for a second post-op appointment, overall doing well -continued ice, rest, and use of non-narcotic analgesia as needed -wean off ambulatory aids -discussed home exercises and therapy -WBAT on operative extremity -reinforced posterior precautions through 8 weeks: avoid extremes of flexion, internal rotation, and adduction -discussed driving requirement: 4 weeks post-op, off narcotic pain medication, adequate brake time -will see back at 1 year appointment for clinical exam and post-op xrays--can see earlier if needed -discussed red flag symptoms of acutely increasing pain, new erythema, new swelling, drainage, shortness of breath -he is still on asa 81 bid. He has not resumed his plavix, and I told him he should resume this if his evaluation specialist wants him on it. Does have some LLE swelling slightly more than expected. Discussedcompression. No tachycardia or SOB. Have ordered DVT US to evaluate for clot. Glendy Ochoa MD Orthopaedic Surgery documented in this encounterSelect Medical [facility] [place]05-16-2022 History of Present illness Narrative* Hakan Hill RN - 12/30/2021 2:27 PM EDT INSIGHT CDM TELEPHONIC OUTREACH Provider Action/FYI: Spk with Pt he denies new or worsening CHF symptoms. Wt 209, BP 120/60 Pt reports using a cane to walk, denies Left Hip pain, Pt is now feeling mild Right hip pain, has Appt 12/31/[address] Glendy Ochoa, [facility] Pt noted he has been able to mow the lawn x2 Contact made with patient: Yes Patient identified by name and . Discussed care with patient It s nice talking to you again. As a reminder, this is our bi-weekly check-in where I will be asking you questions about your health. This will only take a few minutes of your time. Is this a good time? Yes Symptoms What Chronic Disease(s) does the patient have: CHF Do you check your blood pressures at home? Yes, Enter readings: 120/60 Do you have new or worse shortness of breath with activity? No Do you have new or worsening trouble breathing while lying flat? No Do you have new or worsening swelling of legs, feet or ankles? No Do you check your daily weight at home? Yes, Have you noticed a sudden gain in weight greater than three pounds in a day or three pounds in a week? No Are you having any other symptoms that your PCP needs to know about? No Symptom Escalation The patient required an escalation for symptom(s)? No Medications Do you have any questions about taking your medication or which medications you should be on? No Do you need any medication refills at this time, including any of the medications you might take only when needed? No Social We would like to make sure you have what you need so that your basic needs are met- including your personal safety, food, housing and medications? Would you like to speak with a social work hospice team lead to help give you support for any of these needs? No It can be normal to feel anxious or down during a time like this. Would you like to talk to a mental health professional about how you have been feeling? No Closing Thank you for taking the time to talk with me today. We want to work with you to ensure that we arekeeping your medical condition(s) well-controlled and to keep you healthy and out of the doctor's office or hospital. It s also not too late for me to sign you up for automated weekly questionnaires through [employer]. This is an easy way for us to stay connected each week. Are you interested? No, I understand. We can always sign you up in the future if you change your mind. Just as a reminder, will continue to call you every other week to check in on your health. Our calls should take 10-15 minutes or less. Remember, if you have concerns in between our calls, please call your PCP's office right away. Thank you. Enter next patient outreach date for two weeks on the same day of the week as today in the Track PtOutreach and End outreach. Thomas Mcclendon RN December 30, 2021 2:30 PM documented in this encounterSelect Medical [facility]05-06-2022 History of Present illness Narrative* Hakan Hill RN - 12/20/2021 11:21 AM EDT INSIGHT CDM TELEPHONIC OUTREACH Provider Action/FYI: Call to Pt left a message to verify CHF or other symptom status and needs. Contact made with patient: No - Left message Brianna my name is Thomas Mcclendon RN your [employer] Clerk from the [facility] I am calling today for your bi-weekly check in. I am sorry I missed your call. I will reach out to you again tomorrow. (if the third call I will reach out to you again next week) Enter next patient outreach date forthe following using the Track Pt Outreach. End outreach. Thomas Mcclendon RN December 20, 2021 11:21 AM documented in this encounterSelect Medical [facility] [place]04-27-2022 Miscellaneous Notes* Telephone Encounter - Violeta Islas, PT - 12/11/2021 4:00 PM EDT Pt discharged from home PT 12/11/21 Goals met documented in this encounterSelect Medical [facility] [place]04-27-2022 Miscellaneous Notes* PT DISCHARGE - Violeta Islas PT - 12/11/2021 12:31 PM EDT SITUATION: patient reports the following since the last homecare visit: medications/allergies--no changes, no fall. patient reports feeling fantastic, no pain, starting to go around home with out device. BACKGROUND: Diagnoses (reason for Home Care): LTHA. Weight Bearing/Precaution Changes: no changes ASSESSMENT: Focus of visit: reassessment /discharge Physical therapy discharged: goals achieved. Functional performance at discharge - bed mobility independent, transfers independent, ambulation independent and stairs independent. Plan of care, goals, and discharge reviewed and agreed upon with patient and/or caregiver. RECOMMENDATION: Patient discharged from home health services. Instructions to include:home exercise program as directed See intervention summary for intervention/education details. documented in this encounterSelect [facility]04-25-2022 Miscellaneous Notes* Telephone Encounter - NETO Buckley - 12/09/2021 1:25 PM EDT Kendrick is feeling fantastic, no pain and walking without cane. He is very thankful and excited for hisnew hip. documented in this encounterSelect Medical [facility]04-21-2022 Miscellaneous Notes* PT ROUTINE/REASSESSMENT/RECERT/CASE MGMT - Arleen Caballero PTA - 12/05/2021 12:53 PM EDT SITUATION: spouse present during today's visit. patient reports the following since the last homecare visit: medications/allergies--no changes, no fall. patient reports he went to [facility] this am to get meds and tired himself out Hip is feeling good. BACKGROUND: Diagnoses (reason for Home Care): LTHA. Weight Bearing/Precaution Changes: no changes ASSESSMENT: Focus of visit progression og HEP and gait training distances. patient continues to fatigue easily and requires seated rest breaks throughout. Vital stable throughout Plan of care, goals, and visit frequency reviewed and agreed upon with patient and/or caregiver. Current Discharge Plan: independent with home exercise program Anticipate discharge by 12/11/21 RECOMMENDATION: Next visit to focus on increase reps with exercisesif able. Prep for DC See intervention summary for intervention/education details. documented in this encounterSelect Medical [facility] [place]04-21-2022 History of Present illness Narrative* Hakan Hill RN - 12/05/2021 11:35 AM EDT INSIGHT CDM TELEPHONIC OUTREACH Provider Action/FYI: Spk with Pt 's Nicolasa, she denies Ray has any new or worsening CHF or other symptoms. Left lHip Replacement is doing well receiving Physical Therapy 3 x week, denies needs or concerns. Contact made with patient: Yes Patient identified by name and . Discussed care with spouse It s nice talking to you again. As a reminder, this is our bi-weekly check-in where I will be asking you questions about your health. This will only take a few minutes of your time. Is this a good time? Yes Symptoms What Chronic Disease(s) does the patient have: CHF Do you check your blood pressures at home? Yes, Enter readings: Not available Do you have new or worse shortness of breath with activity? No Do you have new or worsening trouble breathing while lying flat? No Do you have new or worsening swelling of legs, feet or ankles? No Do you check your daily weight at home? Yes, Have you noticed a sudden gain in weight greater than three pounds in a day or three pounds in a week? No Are you having any other symptoms that your PCP needs to know about? No Symptom Escalation The patient required an escalation for symptom(s)? No Medications Do you have any questions about taking your medication or which medications you should be on? No Do you need any medication refills at this time, including any of the medications you might take only when needed? No Social We would like to make sure you have what you need so that your basic needs are met- including your personal safety, food, housing and medications? Would you like to speak with a social work hospice team lead to help give you support for any of these needs? No It can be normal to feel anxious or down during a time like this. Would you like to talk to a mental health professional about how you have been feeling? No Closing Thank you for taking the time to talk with me today. We want to work with you to ensure that we arekeeping your medical condition(s) well-controlled and to keep you healthy and out of the doctor's office or hospital. It s also not too late for me to sign you up for automated weekly questionnaires through [employer]. This is an easy way for us to stay connected each week. Are you interested? No, I understand. We can always sign you up in the future if you change your mind. Just as a reminder, will continue to call you every other week to check in on your health. Our calls should take 10-15 minutes or less. Remember, if you have concerns in between our calls, please call your PCP's office right away. Thank you. Enter next patient outreach date for two weeks on the same day of the week as today in the Track PtOutreach and End outreach. Thomas Mcclendon RN December 05, 2021 11:35 AM documented in this encounterSelect Medical [facility]04-18-2022 Miscellaneous Notes* PT ROUTINE/REASSESSMENT/RECERT/CASE OMID Caballero, AIR PRESS OPERATOR - 12/02/2021 12:01 PM EDT SITUATION: spouse present during today's visit. patient reports the following since the last homecare visit: medications/allergies--no changes, no fall. patient reports he went to [facility] and did good getting in/out of home. and car. Was fatigued after but no increased pain and soreness BACKGROUND: Diagnoses (reason for Home Care): L BJ Weight Bearing/Precaution Changes: no changes ASSESSMENT: Focus of visit increasing ambulation distances/times. progression of HEP with increased reps. Issued NOMNC. Patient denies questions/concerns with form Patiient is improvinhg in overall endurance andstrength Plan of care, goals, and visit frequency reviewed and agreed upon with patient and/or caregiver. Current Discharge Plan: independent with home exercise program Anticipate discharge by RECOMMENDATION: Next visit to focus on outdoor ambulation if weather permits See intervention summary for intervention/education details. documented in this encounterSelect Medical [facility]04-14-2022 Miscellaneous Notes* PT ROUTINE/REASSESSMENT/RECERT/CASE OMID Caballero, SMITH - 11/28/2021 12:50 PM EDT SITUATION: spouse present during today's visit. patient reports the following since the last homecare visit: medications/allergies--no changes, no fall. patient reports he feels much better today. rested yesterday and woke up today feeling much better . BACKGROUND: Diagnoses (reason for Home Care): L BJ Weight Bearing/Precaution Changes: no changes ASSESSMENT: Focus of visit resumed standing strength and balance exercises. cane training including stairs to exit home and level surfaces outdoors. Plan of care, goals, and visit frequency reviewed and agreed upon with patient and/or caregiver. Current Discharge Plan: independent with home exercise program Anticipate discharge by 12/11/21 RECOMMENDATION: Next visit to focus on NOMNC prep for DC See intervention summary for intervention/education details. documented in this encounterSelect Medical [facility]04-13-2022 Miscellaneous Notes* PT ROUTINE/REASSESSMENT/RECERT/CASE MGMT - Arleen Caballero PTA - 11/27/2021 11:55 AM EDT SITUATION: noone present during today's visit. patient reports the following since the last homecare visit: medications/allergies--no changes, no fall. patient reports Dr was pleased with progress. States he use cane to get outofhome and into car and then use rollator to get in/out of Dr office.. Patient states he is very tired today from having Dr appointment and feels like he over did it. BACKGROUND: Diagnoses (reason for Home Care): L BJ Weight Bearing/Precaution Changes: no changes ASSESSMENT: Focus of visit strength and gait training. Modified exercises to supine and seated today due to patients fatigue. Also instructed patirnt to use WW today due to fatigue for safety. Patient voiced understanding and agrees. Plan of care, goals, and visit frequency reviewed and agreed upon with patient and/or caregiver. Current Discharge Plan: independent with home exercise program Anticipate discharge by 12/11/21 RECOMMENDATION: Next visit to focus on resume standing exercises and cane training See intervention summary for intervention/education details. documented in this encounterSelect Medical [facility]04-12-2022 NoteHNO ID: [id number] Author: HOPE Hogan Service: Radiology Author Type: Technologist Type: Progress Notes Filed: 11/26/2021 1:18 PM Note Text: Radiology Service Progress Note PATIENT NAME: Kendrick Barraza DATE OF SERVICE: November 26, 2021 TIME: 1:18 PM PATIENT IDENTITY VERIFICATION COMPLETED USING TWO (2) IDENTIFIERS: Name and Date of confirmed by patient verbally. FALL SCREENING: Has the patient had 2 falls in the last year or 1 fall with injury or currently using an Ambulatory Assistive Device (Walker, Cane, Wheelchair, Crutches, etc.)? Yes, Patient High Risk for Falls What interventions were put in place to prevent falls during this visit? Offered Assistance with Transfers/Clothing and Increased Observations by Caregivers PATIENT GENDER DATA: Male PATIENT RELEVANT IMPLANT DATA REVIEWED: Not Applicable RADIOLOGY DEPARTMENT: General X-ray: Exam(s) Completed: Pelvis X-Ray: Pelvis with Hip Left PERIPHERAL IV DATA: Not applicable SIGNED BY: HOPE Hogan November 26, 2021 1:18 PMVan Wert County [id number] History of Present illness Narrative* James Quiroz APRN.DROP FORGER HELPER - 11/26/2021 2:09 PM EDT Post-op Office Visit Kendrick Barraza 70 year old November 26, 2021 2:09 PM Surgery Date: 11/11/21 History: Kendrick Barraza Is now 2 weeks out from S/P Posterior LTHA. Post-operative course has been without complication. No readmission/complications Subjective: Patient reports No pain. Overall is doing well. Walker for ambulatory aid No opioid pain medication, takes tylenol occasionally Objective: Ambulates with walker Incision well-approximated, no drainage, normal christiana-incisional erythema Full ROM not tested do to early post-operative period, but smaller arcs of motion fluid and comfortable Distally DP/PT palpable Distally S/S/SP/DP/T intact at baseline Distally DF/EHL/PF intact at baseline Negative mary/calf tenderness Xrays: Well aligned total hip replacement in appropriate position with no evidence of loosening Assessment and Plan: Kendrick Barraza Is here for a first post-op appointment, overall doing well -continued ice, rest, and use of non-narcotic analgesia as needed -wean off ambulatory aids -discussed home exercises and therapy -WBAT on operative extremity -reinforced posterior precautions through 8 weeks: avoid extremes of flexion, internal rotation, and adduction -continue ankle pumps and dvt ppx through 4 weeks -discussed driving requirement: 4 weeks post-op, off narcotic pain medication, adequate brake time -will see back at 6 week appointment for clinical exam -discussed red flag symptoms of acutely increasing pain, new erythema, new swelling, drainage, shortness of breath James Quiroz APRN.CNP November 26, 2021 2:10 PM documented in this encounterSelect [facility]04-12-2022 History of Present illness Narrative* HOPE Hogan - 11/26/2021 1:05 PM EDT Radiology Service Progress Note PATIENT NAME: Kendrick Barraza DATE OF SERVICE: November 26, 2021 TIME: 1:18 PM PATIENT IDENTITY VERIFICATION COMPLETED USING TWO (2) IDENTIFIERS: Name and Date of confirmedby patient verbally. FALL SCREENING: Has the patient had 2 falls in the last year or 1 fall with injury or currently using an Ambulatory Assistive Device (Walker, Cane, Wheelchair, Crutches, etc.)? Yes, Patient High Riskfor Falls What interventions were put in place to prevent falls during this visit? Offered Assistance with Transfers/Clothing and Increased Observations by Caregivers PATIENT GENDER DATA: Male PATIENT RELEVANT IMPLANT DATA REVIEWED: Not Applicable RADIOLOGY DEPARTMENT: General X-ray: Exam(s) Completed: Pelvis X-Ray: Pelvis with Hip Left PERIPHERAL IV DATA: Not applicable SIGNED BY: HOPE Hogan November 26, 2021 1:18 PM documented in this encounterSelect Medical [facility]04-11-2022 Miscellaneous Notes* PT ROUTINE/REASSESSMENT/RECERT/CASE MGMT - Arleen SMITH Caballero - 11/25/2021 2:25 PM EDT SITUATION: spouse present during today's visit. patient reports the following since the last homecare visit: medications/allergies--no changes, no fall. patient reports he has been working on walking with cane and HEP. BACKGROUND: Diagnoses (reason for Home Care): L BJ Weight Bearing/Precaution Changes: no changes ASSESSMENT: Focus of visit cane training including stair training Plan of care, goals, and visit frequency reviewed and agreed upon with patient and/or caregiver. Current Discharge Plan: independent with home exercise program Anticipate discharge by 12/11/21 RECOMMENDATION: Next visit to focus on increasing reps to encourage muscle endurance and strength and continue withcane training See intervention summary for intervention/education details. documented [facility] Miscellaneous Notes* Telephone Encounter - Debra Dial OT/L - 11/25/2021 11:31 AM EDT OT evaluation completed 11/19/21, plan for OT 2wk1 to address education in DME/AE and adaptive techniques for ADLs. Pt d/c from OT 11/20/21 d/t goals met. Pt continues with home PT. Feel free to contact me if you have any questions or concerns regarding plan of care. ([phone]) Debra Dial OTR/L,[facility] documented in this encounterSelect [facility] [place] Miscellaneous Notes* PT ROUTINE/REASSESSMENT/RECERT/CASE MGMT - Arleen Caballero PTA - 11/22/2021 1:13 PM EDT SITUATION: spouse present during today's visit. patient reports the following since the last homecare visit: medications/allergies--no changes, no fall. patient reports he just feels tired today. BACKGROUND: Diagnoses (reason for Home Care): LTHA Weight Bearing/Precaution Changes: no changes ASSESSMENT: Focus of visit progression of HEP for strengthening and cane training Plan of care, goals, and visit frequency reviewed and agreed upon with patient and/or caregiver. Current Discharge Plan: independent with home exercise program Anticipate discharge by 12/11/21 RECOMMENDATION: Next visit to focus on add mini sits for functional strengthening See intervention summary for intervention/education details. documented in this encounterSelect [facility] [place] Miscellaneous Notes* OT DISCHARGE VISIT NOTE - SHALOM Hart - 11/20/2021 1:15 PM EDT SITUATION: spouse present during today's visit. patient reports the following since the last homecare visit: medications/allergies--no changes, no fall. BACKGROUND: Diagnoses or reason for Home Care: s/p left hip arthroplasty ASSESSMENT: Focus of visit: shower/d/c Occupational therapy discharged: goals achieved. Functional Performance at discharge: Upper body dressing independence, Lower body dressing independence and Bathing supervision or setup assistance with tub transfer bench, bus repair supervisor, sockaid. Pt to continue to supervise with getting in shower Plan of care, goals, and discharge reviewed and agreed upon with patient/caregiver. RECOMMENDATION: Instructions include: discharged from OT and is active with PT. Post dc recommendations: continue to have assistance with shower See intervention summary for intervention/education details. * OT ROUTINE / CASE MGMT VISIT - SHALOM Hart - 11/20/2021 1:15 PM EDT SITUATION: spouse present during today's visit. patient reports the following since the last homecare visit: medications/allergies--no changes, no fall. patient reports that things continue to go well --had a good session with PT today and was able to do stairs. BACKGROUND: Diagnoses or reason for Home Care: left hip arthroplasty ASSESSMENT: Focus of Visit shower and d/c Patient identified goals to be able to shower Plan of care, goals, and visit frequency reviewed and agreed upon with patient and/or caregiver. See intervention summary for intervention/education details. Current Discharge Plan: remain in community with/without caregiver support. Anticipate discharge by 11/23/21 RECOMMENDATION: D/ C OT d/t goals met. documented in this encounterSelect [facility] [place] Miscellaneous Notes* PT ROUTINE/REASSESSMENT/RECERT/CASE MGMT - Arleen Caballero PTA - 11/20/2021 11:32 AM EDT SITUATION: spouse present during today's visit. patient reports the following since the last homecare visit: medications/allergies--no changes, no fall. patient reports he is feeling better every day. BACKGROUND: Diagnoses (reason for Home Care): L BJ Weight Bearing/Precaution Changes: no changes ASSESSMENT: Focus of visit progression gait pattern with emphasis on increasing step length and distances including stair training . progressed HEP Plan of care, goals, and visit frequency reviewed and agreed upon with patient and/or caregiver. Current Discharge Plan: independent with home exercise program Anticipate discharge by 12/11/21 RECOMMENDATION: Next visit to focus on add standing hip abduction if able See intervention summary for intervention/education details. documented in this encounterSelect [facility] [place] History of Present illness Narrative* Hakan Hill RN - 11/19/2021 11:03 AM EDT INSIGHT CDM TELEPHONIC OUTREACH Provider Action/FYI: Updates routed to Dr. Grewal 11/11/21-11/12/21 [facility]- Left ARTHROPLASTY REPLACE JOINT TOTAL HIP Spk with Pt who reports Left Hip has minimal intermittent pain, No signs of infection, Left leg hasedema present, Pt is elevating legs and [facility] is aware. Pt denies CP, Sob, coughing or wheezing. Pt is receiving [facility], PT, OT, Pt is ambulating well with walker, BP 120/60, Pulse Ox 98%, Temp 98.0, FBS 90-99, PP 130-170, Pt reports he is icing the incision as needed, Pt initially took Oxycodone IR which made him nauseated, and is now only taking Tylenol as ordered. Pt denies needs or concerns Contact made with patient: Yes Patient identified by name and . Discussed care with patient It s nice talking to you again. As a reminder, this is our bi-weekly check-in where I will be asking you questions about your health. This will only take a few minutes of your time. Is this a good time? Yes Symptoms What Chronic Disease(s) does the patient have: CHF Do you check your blood pressures at home? Yes, Enter readings: 120/60 Do you have new or worse shortness of breath with activity? No Do you have new or worsening trouble breathing while lying flat? No Do you have new or worsening swelling of legs, feet or ankles? Yes Do you check your daily weight at home? Yes, Have you noticed a sudden gain in weight greater than three pounds in a day or three pounds in a week? No Are you having any other symptoms that your PCP needs to know about? Yes Symptom Escalation The patient required an escalation for symptom(s)? No Medications Do you have any questions about taking your medication or which medications you should be on? No Do you need any medication refills at this time, including any of the medications you might take only when needed? No Social We would like to make sure you have what you need so that your basic needs are met- including your personal safety, food, housing and medications? Would you like to speak with a social work hospice team lead to help give you support for any of these needs? No It can be normal to feel anxious or down during a time like this. Would you like to talk to a mental health professional about how you have been feeling? No Closing Thank you for taking the time to talk with me today. We want to work with you to ensure that we arekeeping your medical condition(s) well-controlled and to keep you healthy and out of the doctor's office or hospital. It s also not too late for me to sign you up for automated weekly questionnaires through [employer]. This is an easy way for us to stay connected each week. Are you interested? No, I understand. We can always sign you up in the future if you change your mind. Just as a reminder, will continue to call you every other week to check in on your health. Our calls should take 10-15 minutes or less. Remember, if you have concerns in between our calls, please call your PCP's office right away. Thank you. Enter next patient outreach date for two weeks on the same day of the week as today in the Track PtOutreach and End outreach. Thomas Mcclendon RN November 19, 2021 11:03 AM documented in this encounterSelect [facility] [place]-2022 Miscellaneous Notes* PT ROUTINE/REASSESSMENT/RECERT/CASE MGMT - Violeta Islas, PT - 11/18/2021 12:43 PM EDT SITUATION: spouse present during today's visit. patient reports the following since the last homecare visit: medications/allergies--pt reports pain is quickly diminishing. No pain meds today. States that suma crawley is getting sore from sitting BACKGROUND: Diagnoses (reason for Home Care): LTHA Weight Bearing/Precaution Changes: no changes ASSESSMENT: Focus of visit HEP,adjusted rail on the bed. instr in supine to sit and rolling to the right . Instr pt to lie flat daily to stretch his hip flexors as they are tight Max verbal, visual adn tactile cuing for gait training to increase his stride Plan of care, goals, and visit frequency reviewed and agreed upon with patient and/or caregiver. Current Discharge Plan: independent with home exercise program A Bandage removed , Incision healing well. with pts permission phot uploaded to [facility] for MD to review Anticipate discharge by 12/11/21 RECOMMENDATION:focus on development of gait See intervention summary for intervention/education details. documented in this encounterSelect [facility] [place]20[facility] Miscellaneous Notes* Telephone Encounter - NETO Buckley - 11/18/2021 9:50 AM EDT OK for OT eval and tx per Emerson GARCIA. Thanks! * Telephone Encounter - Violeta Islas PT - 11/18/2021 8:31 AM EDT Requesting OT eval and tx order for ADL deficits following THR documented in this encounterSelect [facility] [place]-2022 Miscellaneous Notes* PT ROUTINE/REASSESSMENT/RECERT/CASE MGMT - Arleen Caballero, AIR PRESS OPERATOR - 11/15/2021 11:07 AM EDT SITUATION: spouse present during today's visit. patient reports the following since the last homecare visit: medications/allergies--got med for nausea, no fall. patient reports he is feeling much better and only took nausea med 1time. BACKGROUND: Diagnoses (reason for Home Care): LTHA Weight Bearing/Precaution Changes: no changes ASSESSMENT: Focus of visit HEP, transfers and gait training. Plan of care, goals, and visit frequency reviewed and agreed upon with patient and/or caregiver. Current Discharge Plan: independent with home exercise program Anticipate discharge by 12/11/21 RECOMMENDATION: Next visit to focus on bandage removal and stair training if able See intervention summary for intervention/education details. documented in this encounterSelect [facility] [place]-30-2022 Miscellaneous Notes* Telephone Encounter - Violeta Islas, PT - 11/13/2021 5:29 PM EDT PT lisbeth completed 11/13/21 POC 2w1 3w2 2w2 for THR protocol Requesting OT evaluation for ADL deficits documented in this encounterSelect [facility] [place]-30-2022 Miscellaneous Notes* CARE COORDINATION - Violeta Islas PT - 11/13/2021 12:16 PM EDT PT contacted [facility] on 11/13 during the evaluation for the following: to request something forthe pts nausea New orders: Yes, Zofran Follow up needed: None * PT SOC/REBEKAH/FOLLOW UP/OTHER - Violeta Islas PT - 11/13/2021 12:00 PM EDT SITUATION: spouse present during today's visit. patient reports his pain is terrible and he is nauseated. Pt vomited on my arrival. T/c to [facility]- they will call in nausea meds. Pt had gotten off of his pain med scheduled do he took 2 pills this morning and has been nauseated since that time . Advised staying on strict schedule for now so he can get by with just 1 pill if possible. Take with food and roll picker RX for Zofran augie BACKGROUND: Diagnoses (reason for Home Care): L THR pt was to have THR in 2019 but needed heart stents which required plavix x 1 year then he could notschedule due to Covid , during this time he became increasingly debilitated Past Medical History: OA,DM,CVA,CAD,CHF,HTN, CLL, BPH, prostate CA Weight Bearing or Surgical Precautions: WBAT posterior hip precautions dressing removal POD 7 ASSESSMENT: Patient [facility]. Reviewed and explained homecare services. Plan of care, goals, and visit frequency developed, reviewed, and agreed upon with patient and/or caregiver. Patient Goal: walk without pain Patient will benefit from continued physical therapy to address the following deficits: strength, balance, gait, endurance, transfers, stair negotiation and bed mobility. Current Discharge Plan: independent with home exercise program. Anticipate discharge by 12/14/21 RECOMMENDATION: Next visit to focus on gait, transfers Agreeable to PT; Requested order for OT evaluation See intervention summary for intervention/education details. documented in this encounterSelect [facility]03-[facility]-2022 NoteHNO ID: [id number] Author: Franco Le MD Service: General Internal Medicine Author Type: Physician Type: Progress Notes Filed: 11/12/2021 9:12 AM Note Text: INPATIENT CONSULT PROGRESS NOTES Patient Name: Kendrick Barraza DATE of SERVICE: 11/12/21 TIME of SERVICE: 8:06 CONSULTING SERVICE: Medicine,Postop day #1 Plan of care discussed with: Provider, RN, Patient. INTERVAL HPI: Uneventful night, pain is fairly controlled. Patient seen and examined: Discussed with PT Vitals/Meds/Labs/U/O reviewed Alert AND Oriented NO nausea, vomiting NO light headedness, NO shortness of breathe Dry oral mucosa CVS ? RRR Lungs ? Clear to auscultation Abdomen ? soft, NT, + BS LLE ? Ankle No edema RLE ? Ankle No edema MEDICATIONS: Current Facility-Administered Medications Medication Dose Route Frequency - scopolamine - VERIFY patch OTHER q 8 H - lactated ringers iv infusion 75 mL/hr INTRAVENOUS CONTINUOUS - acetaminophen 1,000 mg tab(s) (TYLENOL) 1,000 mg ORAL q 8 H - keTORolac 15 mg injection (TORADOL) 15 mg INTRAVENOUS q 6 H - oxyCODONE IR 5-10 mg tab(s) (ROXICODONE) 5-10 mg ORAL q 3 H PRN - HYDROmorphone 0.2 mg injection (DILAUDID) 0.2 mg INTRAVENOUS q 2 H PRN - ondansetron orally disintegrating 4 mg tab(s) (ZOFRAN ODT) 4 mg ORAL q 6 H PRN Or - ondansetron (PF) 4 mg injection (ZOFRAN) 4 mg INTRAVENOUS q 6 H PRN - polyethylene glycol 3350 17 g packet (MIRALAX, GLYCOLAX) 17 g ORAL DAILY - aluminum-magnesium hydroxide-simethicone 200-200-20 mg/5 mL 30 mL (MAALOX,MYLANTA,MAG-AL PLUS) 30 mL ORAL q 2 H PRN - ferrous sulfate 325 mg tab(s) 325 mg ORAL DAILY wLUNCH - ascorbic acid (vitamin C) 500 mg tab(s) (VITAMIN C) 500 mg ORAL BID w MEALS - docusate sodium 100 mg cap(s) (COLACE) 100 mg ORAL BID - ramipril 10 mg cap(s) (ALTACE) 10 mg ORAL DAILY - cholecalciferol 5,000 Units tab(s) (VITAMIN D3) 5,000 Units ORAL DAILY - metFORMIN ER 2,000 mg tab(s) (GLUCOPHAGE XR) 2,000 mg ORAL DAILY - carvedilol 12.5 mg tab(s) (COREG) 12.5 mg ORAL BID - ezetimibe 10 mg tab(s) (ZETIA) 10 mg ORAL DAILY - insulin glargine 5 Units pen (long acting) (LANTUS SOLOSTAR, BASAGLAR KWIKPEN) 5 Units SUBCUTANEOUS AT BEDTIME - dextrose 40 % 15 g 15 g ORAL PRN Or - glucagon 1 mg injection 1 mg INTRAMUSCULAR PRN Or - dextrose 50% in water 25 mL syringe 12.5 g INTRAVENOUS PRN - insulin lispro injection (rapid acting) (HumaLOG) SUBCUTANEOUS AT BEDTIME - aspirin, enteric coated 81 mg tab(s) 81 mg ORAL BID PHYSICAL EXAM: Patient Vitals for the past 24 hrs: BP Temp Temp src Pulse Resp SpO2 Height Weight 11/12/21 0702 118/52 36.4 ?C (97.5 ?F) Oral 68 16 98 % ? ? 11/12/21 0305 (!) 108/47 36.3 ?C (97.3 ?F) Oral 64 16 97 % ? ? 11/11/21 2318 120/52 36.7 ?C (98.1 ?F) Oral 70 16 95 % ? ? 11/11/21 1914 148/60 36.8 ?C (98.2 ?F) Oral 78 16 94 % ? ? 11/11/21 1700 ? 92.3 kg (203 lb 7.8 oz) 11/11/21 1600 115/85 36.5 ?C (97.7 ?F) Oral 109 18 96 % ? ? 11/11/21 1500 ? 175.3 cm (5' 9) ? 11/11/21 1303 155/76 ? Axillary 74 19 100 % ? ? 11/11/21 1221 158/71 36.3 ?C (97.3 ?F) Oral 66 15 99 % ? ? 11/11/21 1144 150/61 36.5 ?C (97.7 ?F) Axillary 65 17 98 % ? ? 11/11/21 1130 156/74 ? ? 60 13 97 % ? ? 11/11/21 1115 152/74 ? ? 63 9 97 % ? ? 11/11/21 1100 162/69 ? ? 62 15 97 % ? ? 11/11/21 1045 144/70 ? ? 66 15 98 % ? ? 11/11/21 1040 154/63 ? ? 67 13 98 % ? ? 11/11/21 1035 155/71 ? ? 61 13 100 % ? ? 11/11/21 1030 155/72 ? ? 61 13 100 % ? ? 11/11/21 1025 151/70 ? ? 62 14 100 % ? ? 11/11/21 1020 169/80 ? ? 61 12 100 % ? ? 11/11/21 1015 165/77 ? ? (!) 58 11 100 % ? ? 11/11/21 1010 155/74 ? ? (!) 59 12 100 % ? ? 11/11/21 1005 150/72 ? ? 62 10 100 % ? ? 11/11/21 1000 119/64 ? ? 66 11 100 % ? ? Body mass index is 30.05 kg/m?. DATA: CBC: Recent Labs 11/12/21419 WBC 5.93 RBC 3.85* HB 12.3* HCT 36.6* PLT 137* MCV 95.1 MCH 31.9 MPV 9.5 Coags: No results for input(s): PT, INR, APTT in the last 24 hours. CMP: Recent Labs 11/12/210 NA 137 K 4.4 CHLOR 101 CO2 28 BUN 25* CREAT 1.12 GLUC 159* CA 8.6 ANION 8* ASSESSMENT AND PLAN: A. OA S/P - Total Hip Unilateral: left,DVT prophylaxis with aspirin and SCD Continue PT/OT DM type II, blood sugar readings reviewed continue Glucophage and insulin Hypertension stable Congestive heart failure clinically well compensated Hyperlipidemia continue Zetia Possible discharge today Home-going meds reviewed SIGNATURE: Franco Le [facility] [id number] NoteHNO ID: [id number] Author: James Quiroz APRN.DROP FORGER HELPER Service: Orthopaedic Surgery Author Type: Nurse Practitioner Type: Progress Notes Filed: 11/12/2021 7:26 AM Note Text: POSTOP NOTE ORTHOPEDIC SERVICE DATE: 11/12/2021 SERVICE TIME: 7:23 AM IMPRESSION/PLAN: S/P Procedure(s) (LRB): ARTHROPLASTY REPLACE JOINT TOTAL HIP (Left) on 11/11/2021 Physical Therapy, recommending Home PT WBAT LLE, posterior hip precautions DVT prophylaxis: with aspirin, additional anticoagulant is contraindicated due to bleeding risk and Intermittent pneumatic compression device (IPCD) Pain control Antibiotics: Discontinuing Antibiotics after 24 hours Case Management for discharge planning Plan of care discussed with: Provider, RN, Patient. Patient Active Hospital Problem List: No active hospital problems. POST OPERATIVE COMPLICATIONS: Complicated by uneventful/none SUBJECTIVE: Patient states that they are comfortable Well Controlled hip pain. Denies incisional pain. OBJECTIVE: VITAL SIGNS: BP 118/52 Pulse 68 Temp 36.4 ?C (97.5 ?F) (Oral) Resp 16 Ht 175.3 cm (5' 9) Wt 92.3 kg (203 lb 7.8 oz) SpO2 98% BMI 30.05 kg/m? INTAKE AND OUTPUT: Intake/Output Summary (Last 24 hours) at 11/12/2021 0723 Last data filed at 11/12/2021 0558 Gross per 24 hour Intake 2855 ml Output 1825 ml Net 1030 ml LABS: Hemoglobin Date Value Ref Range Status 11/12/2021 12.3 (L) 13.0 - 17.0 g/dL Final 10/19/2021 16.6 13.0 - 17.0 g/dL Final Hematocrit Date Value Ref Range Status 11/12/2021 36.6 (L) 39.0 - 51.0 % Final 10/19/2021 50.3 39.0 - 51.0 % Final Platelet Count Date Value Ref Range Status 11/12/2021 137 (L) 150 - 400 k/uL Final Comment: No clot detected 10/19/2021 167 150 - 400 k/uL Final WBC Date Value Ref Range Status 11/12/2021 5.93 3.70 - 11.00 k/uL Final 10/19/2021 6.79 3.70 - 11.00 k/uL Final Creatinine Date Value Ref Range Status 11/12/2021 1.12 0.73 - 1.22 mg/dL Final 10/19/2021 0.92 0.73 - 1.22 mg/dL Final Potassium Date Value Ref Range Status 11/12/2021 4.4 3.7 - 5.1 mmol/L Final 10/19/2021 4.4 3.7 - 5.1 mmol/L Final VTE Prophylaxis: Active VTE Risk Category Order: 11/11/21 1200 VTE RISK CATEGORY: SURGICAL HIGH RISK ([place], [place]) Active VTE Medication Orders: Anticoagulant AND Antiplatelet Medications (From admission, onward) Start Dose Route Frequency Last Action Ordered Stop 11/11/21 1430 aspirin, enteric coated 81 mg tab(s) 81 mg ORAL DAILY Ordered 11/11/21 1418 -- Active VTE Prophylaxis Orders: 11/11/21 1200 VTE CURRENT ANTICOAG THERAPY ([place], [place]) 11/11/21 1200 PNEUMATIC COMPRESSION STOCKINGS ([place], [place]) 11/11/21 1200 ACTIVITY - MOBILIZE PATIENT ([place], [place]) PHYSICAL EXAMINATION: Left Lower Extremity: Dorsalis pedis pulses palpable. Posterior tibial pulses palpable. Dorsi flexion 5/5. Plantar flexion 5/5. Extensor hallucis extension: 5/5. Sensory intact to light touch L1-S1. Dressing clean, dry and intact. Surgical site no drainage and Silverlon intact. Thigh is not swollen, calf is not tender, no signs of DVT or infection Problem Review and Assessment: Skin and Abdominal Wall: Patient monitored, no new events overnight Cardiovascular and Vascular: Patient monitored, no new events overnight Respiratory: Patient monitored, no new events overnight Endocrine and Metabolic: Patient monitored, no new events overnight Gastrointestinal: Patient monitored, no new events overnight Genitourinary and Nephrology: Patient monitored, no new events overnight Behavioral, Cerebrovascular and Nervous: Patient monitored, no new events overnight Infectious: Patient monitored, no new events overnight DATA: Diagnostic tests reviewed for today's visit: Most recent labs and imaging results. SIGNATURE: James Quiroz APRN.CNP PATIENT NAME: Kendrikc Barraza DATE: November 12, 2021 TIME: 7:23 AM The patient has undergone major orthopedic surgery and participating in therapy. Pain cannot be managed within an average of 30 MED per day. Patient requiring average of higher than 30 MED per day in order to control pain and allow patient to actively and safely participate in therapy and this is the lowest dose consistent with patient's medical condition. Non-narcotic medication options have been discussed. In addition, the patient has been advised of the benefits and risks of the opioid (including the potential for addiction). Patient demonstrated understanding of risks versus benefits.[facility] [id number] NoteHNO ID: [id number] Author: Calvin Harris APRN.INSURANCE COORDINATOR Service: Anesthesiology Author Type: Nurse Web Content Coordinator Type: Anesthesia Procedure Notes Filed: 11/11/2021 10:02 AM Note Text: ANESTHESIOLOGY PROCEDURE NOTE Spinal Block General Information Procedure Start Time/Medication Administration: 11/11/2021 7:30 AM Procedure End time: 11/11/2021 7:37 AM Patient location during procedure: OR Timeout Performed Pre-procedure: timeout performed Consent Obtained: Yes Patient identity confirmed: arm band and patient Reason for Block: primary surgical anesthetic Staffing INSURANCE COORDINATOR: Calvin Harris APRN.INSURANCE COORDINATOR Performed by: INSURANCE COORDINATOR Preparation Sterility Preparation: hand hygiene performed prior to procedure, sterile gloves, drapes, and procedure tray, gown used during line insertion, surgical cap used, mask used, sterile drape used during line insertion, skin prep agent completely dried prior to procedure Site Prep: Duraprep Procedure Details Patient Position: sitting Ultrasound Guided: No Monitoring: Pulse Ox, EKG and NIBP Approach: Midline Location: L3-4 Injection Technique: single-shot Needle Needle Type: pencil-tip Needle Gauge: 22 G Needle Length: 3.5 in Assessment Events: tolerated well SIGNATURE: Calvin Harris APRN.CRNA PATIENT NAME: Kendrick Barraza DATE: November 11, 2021 TIME: 10:01 AM CSN: [id number] History of Present illness Narrative* Evie Grewal MD - 11/01/2021 3:02 PM EDT This note was created using [employer]. Subjective Kendrick Barraza is a 70 year old male. Patient presents with: Follow Up SUBJECTIVE: Kendrick Barraza is a 70 year old year old gentleman here today for 3 month follow up appointment for review of medical conditions. Noted that sometimes hold Lantus dose or takes 5 units. Metformin effective. AM 80s to 90s in September AM 96-124 this month. [id number], most <180. Supper 79-130 with most under 120s. Checked one HS and was 136. No novolog with breakfast. Takes 5 unit with lunch Supper depends on blood sugar--takes only if eating more carbs or if sugar were over 150s (no 150s this month so far). Eats banana if low below 80s at bedtime or supper. No recent lows under 70. Already got okay for hip surgery (Dr. Ochoa) from cardiology ([facility]) Already knows no insulin before has surgery done. Had mild cold symptoms when had COVID most likely when got it work. Did not get tested. In wheelchair because of hip pain. PAST MEDICAL HISTORY Diagnosis Date CAD (coronary artery disease) Stents x 4 CHF (congestive heart failure) (HCC) 12/22/2011 CLL (chronic lymphocytic leukemia) (HCC) 11/20/2011 cva 10/2011 left pontine infarct Diabetes mellitus without mention of complication Diabetes mellitus Diverticulosis of colon (without mention of hemorrhage) Elevated PSA 12/11/2014 HYPERLIPIDEMIA NEC/NOS 07/22/2006 HYPERTENSION NOS 07/15/2006 Obesity Pleural effusion 11/19/2011 Small lft pleural effusion Noted on chest x-ray [facility] On 11/13/11.blunting of the lft costophrenic andle. PVC (premature ventricular contraction) Current Outpatient Medications Medication Sig mupirocin (BACTROBAN) 2 % ointment twice daily for 5 days. Apply 0.5 inch with cotton swab (Q-tip) to each nostril in the morning and evening for 5 days prior to and including day of surgery. ezetimibe (ZETIA) 10 mg tablet Take 1 tablet by mouth once daily. metFORMIN ER (GLUCOPHAGE XR) 500 mg 24 hr tablet Take 4 tablets by mouth once daily. carvedilol (COREG) 12.5 mg tablet Take 1 tablet by mouth twice daily. insulin glargine (LANTUS SOLOSTAR U-100 INSULIN) 100 unit/mL (3 mL) Inject 8 Units subcutaneously daily at bedtime. (Adjust as indicated) (Patient taking differently: Inject 0-5 Units subcutaneously daily at bedtime. Holds if blood sugars is under 120s at supper time. Takes 5 units if ate more at supper or if over 160 at bedtime ) blood sugar diagnostic ([employer] ConceptsTOUCH ULTRA TEST) test strip Test blood sugar(s) 3 times daily. Dx: E11.65, DM. Insulin: Yes insulin aspart U-100 (NOVOLOG FLEXPEN U-100 INSULIN) 100 unit/mL (3 mL) Inject 6 Units subcutaneously three times daily before meals. As directed--only take if eating a meal ramipril (ALTACE) 10 mg capsule Take 1 capsule by mouth once daily. Cholecalciferol, Vitamin D3, 125 mcg (5,000 unit) cap Take 1 capsule by mouth every other day. May switch to 2000 units daily insulin needles, DISPOSABLE, (PEN NEEDLE) 31 gauge x 5/16 ndle Use one needle per dose. 4 per day. ketoconazole (NIZORAL) 2 % cream Apply 1 application to affected area once daily. ACETAMINOPHEN (TYLENOL ORAL) Take 650 mg by mouth every 4 hours as needed. Aspirin 81 mg ORAL Tab Take 81 mg by mouth once daily. clopidogrel (PLAVIX) 75 mg tablet Take 75 mg by mouth once daily. No current facility-administered medications for this visit. Review of Systems Objective BP 126/72 Pulse 90 Wt 90.7 kg (200 lb) BMI 29.53 kg/m Last 5 Encounter BP Readings: Date: BP: 11/01/2021 122/70 11/01/2021 126/72 08/02/2021 142/64 07/26/2021 126/62 2020 118/70 Last 5 Encounter Wt Readings: Date: Wt: 11/01/2021 90.7 kg (200 lb) 11/01/2021 90.7 kg (200 lb) 08/02/2021 0 kg () 07/26/2021 92.5 kg (204 lb) 2020 98.9 kg (218 lb) Physical Exam Vitals reviewed. Constitutional: Appearance: Normal appearance. Eyes: Conjunctiva/sclera: Conjunctivae normal. Cardiovascular: Rate and Rhythm: Normal rate and regular rhythm. Heart sounds: Normal heart sounds. Pulmonary: Effort: Pulmonary effort is normal. Breath sounds: Normal breath sounds. Musculoskeletal: Right lower le+ Pitting Edema present. Left lower le+ Pitting Edema present. Skin: General: Skin is warm and dry. Neurological: General: No focal deficit present. Mental Status: He is alert and oriented to person, place, and time. Psychiatric: Mood and Affect: Mood normal. Behavior: Behavior normal. Thought Content: Thought content normal. Judgment: Judgment normal. Hemoglobin A1C (%) Date Value 10/19/2021 6.5 04/13/2021 6.5 12/08/2020 7.0 08/16/2020 7.2 05/17/2020 7.0 02/02/2020 7.3 Hemoglobin A1C (POCT) (%) Date Value 07/26/2021 6.4 Component Latest Ref Rng & Units 04/13/2021 07/13/2021 07/26/2021 08/02/2021 10/19/2021 WBC 3.70 - 11.00 k/uL 6.83 8.19 6.79 RBC 4.20 - 6.00 m/uL 4.85 4.86 5.27 Hemoglobin 13.0 - 17.0 g/dL 15.3 15.7 16.6 Hematocrit 39.0 - 51.0 % 45.5 45.4 50.3 MCV 80.0 - 100.0 fL 93.8 93.4 95.4 MCH 26.0 - 34.0 pg 31.5 32.3 31.5 MCHC 30.5 - 36.0 g/dL 33.6 34.6 33.0 RDW-CV 11.5 - 15.0 % 13.3 13.5 13.1 Platelet Count 150 - 400 k/uL 153 176 167 MPV 9.0 - 12.7 fL 10.7 9.2 9.7 Neut% % 47.6 Abs Neut (ANC) 1.45 - 7.50 k/uL 3.90 Lymph% % 40.8 Abs Lymph 1.00 - 4.00 k/uL 3.34 Screven% % 4.4 Abs Screven <0.87 k/uL 0.36 Eosin% % 6.7 Abs Eosin <0.46 k/uL 0.55 (H) Baso% % 0.5 Abs Baso <0.11 k/uL 0.04 Nucleated Reds 0 /100 WBC 0.0 Absolute nRBC <0.01 k/uL <0.01 <0.01 <0.01 Diff Type Auto Diff Protein, Total 6.3 - 8.0 g/dL 6.0 (L) 6.4 Albumin 3.9 - 4.9 g/dL 4.2 4.4 Calcium 8.5 - 10.2 mg/dL 9.0 9.4 Bilirubin, Total 0.2 - 1.3 mg/dL 1.1 1.2 Alkaline Phosphatase 38 - 113 U/L 39 34 (L) AST 14 - 40 U/L 16 21 Glucose 74 - 99 mg/dL 82 98 BUN 9 - 24 mg/dL 16 16 Creatinine 0.73 - 1.22 mg/dL 0.99 0.92 Sodium 136 - 144 mmol/L 140 138 Potassium 3.7 - 5.1 mmol/L 4.0 4.4 Chloride 97 - 105 mmol/L 106 (H) 103 CO2 22 - 30 mmol/L 24 22 Anion Gap 9 - 18 mmol/L 10 13 ALT 10 - 54 U/L 9 (L) 12 eGFR- >60 eGFR-All Other Races . >60 eGFR >=60 mL/min/1.73m 89 Cholesterol, Total <200 mg/dL 204 (H) 201 (H) Triglyceride <150 mg/dL 107 121 HDL Cholesterol >39 mg/dL 46 43 LDL Cholesterol <100 mg/dL 137 (H) 134 (H) Non HDL Cholesterol <130 mg/dL 158 (H) 158 (H) Fasting Time hrs 12 13 VLDL Cholesterol <30 mg/dL 21 24 TC:HDL Ratio <5.10 4.43 4.67 LDL:HDL Ratio <2.54 2.98 (H) 3.12 (H) Creatinine, Ur Random (UCRR) 20 - 300 mg/dL 84.4 Albumin, Urine Random mg/L 44.1 Albumin/Creat Ratio <30 mg/g 52 (H) Hemoglobin A1C 4.3 - 5.6 % 6.5 (H) 6.5 (H) Estimated Average Glucose mg/dL 140 140 Vitamin D 25 Hydroxy 31.0 - 80.0 ng/mL 52.8 Hemoglobin A1C (POCT) 4.2 - 5.6 % 6.4 Assessment and Plan ASSESSMENT/PLAN: 1. Controlled type 2 diabetes mellitus without complication, with long-term current use of insulin (HCC) - ICD9: 250.00, V58.67, ICD10: E11.9, Z79.4 (primary diagnosis) Controlled. - Continue current medications - Encouraged regular aerobic exercise and weight loss 2. Essential hypertension, benign - ICD9: 401.1, ICD10: I10 - good control - Continue current medication(s) - Recommended regular aerobic exercise. - Recommend home blood pressure monitoring, to bring results in on next visit - Goal of BP <130/80 3. Mixed hyperlipidemia - ICD9: 272.2, ICD10: E78.2 - good control - Continue current medication. 4. Vitamin D deficiency - ICD9: 268.9, ICD10: E55.9 Continue present management. Further evaluation and treatment as indicated. 5. S/P coronary artery stent placement - ICD9: V45.82, ICD10: Z95.5 Stable on current meds 6. CVA, old, cognitive deficits - ICD9: 438.0, ICD10: I69.319 Continue present management for prevention of stroke. Further evaluation and treatment as indicated. Evie Grewal MD [facility] History of Past illness Narrative* Problem Noted Date Resolved Date Uncontrolled type 2 diabetes mellitus with hyper glycemia 01/19/2019 11/01/2021 Last Assessment & Plan: Assessment: on insulin, last A1C 6.5 on 10/19/2021, home glucose often under 100 in AM per patient Class 1 obesity due to exces s calories with body mass index (BMI) of 34.0 to 34.9 in adult 09/30/2017 11/01/2021 CVA (cerebral infarction) 12/22/20112013 Pleural effusion 11/19/2011 12/11/2014 Overview: Small lft pleural effusion Noted on chest x-ray [facility] On 11/13/11.blunting of the lft costophrenic andle. Type II or unspecified type diabetes mellitus without mention of complication, not stated as uncontrolled 07/15/2006 BMI 39.0-39.9,adult 04/16/2017 documented as of this encounter (statuses as of 11/13/2021) [facility] [place] History of Past illness Narrative* Problem Noted Date Resolved Date Uncontrolled type 2 diabetes mellitus with hyper glycemia 01/19/2019 11/01/2021 Last Assessment & Plan: Assessment: on insulin, last A1C 6.5 on 10/19/2021, home glucose often under 100 in AM per patient Class 1 obesity due to exces s calories with body mass index (BMI) of 34.0 to 34.9 in adult 09/30/2017 11/01/2021 CVA (cerebral infarction) 12/22/20112013 Pleural effusion 11/19/2011 12/11/2014 Overview: Small lft pleural effusion Noted on chest x-ray [facility] On 11/13/11.blunting of the lft costophrenic andle. Type II or unspecified type diabetes mellitus without mention of complication, not stated as uncontrolled 07/15/2006 BMI 39.0-39.9,adult 04/16/2017 documented as of this encounter (statuses as of 11/13/2021) [facility] [place] History of Past illness Narrative* Problem Noted Date Resolved Date Uncontrolled type 2 diabetes mellitus with hyper glycemia 01/19/2019 11/01/2021 Last Assessment & Plan: Assessment: on insulin, last A1C 6.5 on 10/19/2021, home glucose often under 100 in AM per patient Class 1 obesity due to exces s calories with body mass index (BMI) of 34.0 to 34.9 in adult 09/30/2017 11/01/2021 CVA (cerebral infarction) 12/22/20112013 Pleural effusion 11/19/2011 12/11/2014 Overview: Small lft pleural effusion Noted on chest x-ray [facility] On 11/13/11.blunting of the lft costophrenic andle. Type II or unspecified type diabetes mellitus without mention of complication, not stated as uncontrolled 07/15/2006 BMI 39.0-39.9,adult 04/16/2017 documented as of this encounter (statuses as of 11/15/2021) [facility] [place] History of Past illness Narrative* Problem Noted Date Resolved Date Uncontrolled type 2 diabetes mellitus with hyper glycemia 01/19/2019 11/01/2021 Last Assessment & Plan: Assessment: on insulin, last A1C 6.5 on 10/19/2021, home glucose often under 100 in AM per patient Class 1 obesity due to exces s calories with body mass index (BMI) of 34.0 to 34.9 in adult 09/30/2017 11/01/2021 CVA (cerebral infarction) 12/22/20112013 Pleural effusion 11/19/2011 12/11/2014 Overview: Small lft pleural effusion Noted on chest x-ray [facility] On 11/13/11.blunting of the lft costophrenic andle. Type II or unspecified type diabetes mellitus without mention of complication, not stated as uncontrolled 07/15/2006 BMI 39.0-39.9,adult 04/16/2017 documented as of this encounter (statuses as of 11/15/2021) [facility] [place] History of Past illness Narrative* Problem Noted Date Resolved Date Uncontrolled type 2 diabetes mellitus with hyper glycemia 01/19/2019 11/01/2021 Last Assessment & Plan: Assessment: on insulin, last A1C 6.5 on 10/19/2021, home glucose often under 100 in AM per patient Class 1 obesity due to exces s calories with body mass index (BMI) of 34.0 to 34.9 in adult 09/30/2017 11/01/2021 CVA (cerebral infarction) 12/22/20112013 Pleural effusion 11/19/2011 12/11/2014 Overview: Small lft pleural effusion Noted on chest x-ray [facility] On 11/13/11.blunting of the lft costophrenic andle. Type II or unspecified type diabetes mellitus without mention of complication, not stated as uncontrolled 07/15/2006 BMI 39.0-39.9,adult 04/16/2017 documented as of this encounter (statuses as of 11/18/2021) [facility] [place] History of Past illness Narrative* Problem Noted Date Resolved Date Uncontrolled type 2 diabetes mellitus with hyper glycemia 01/19/2019 11/01/2021 Last Assessment & Plan: Assessment: on insulin, last A1C 6.5 on 10/19/2021, home glucose often under 100 in AM per patient Class 1 obesity due to exces s calories with body mass index (BMI) of 34.0 to 34.9 in adult 09/30/2017 11/01/2021 CVA (cerebral infarction) 12/22/20112013 Pleural effusion 11/19/2011 12/11/2014 Overview: Small lft pleural effusion Noted on chest x-ray [facility] On 11/13/11.blunting of the lft costophrenic andle. Type II or unspecified type diabetes mellitus without mention of complication, not stated as uncontrolled 07/15/2006 BMI 39.0-39.9,adult 04/16/2017 documented as of this encounter (statuses as of 11/18/2021) [facility] [place] History of Past illness Narrative* Problem Noted Date Resolved Date Uncontrolled type 2 diabetes mellitus with hyper glycemia 01/19/2019 11/01/2021 Last Assessment & Plan: Assessment: on insulin, last A1C 6.5 on 10/19/2021, home glucose often under 100 in AM per patient Class 1 obesity due to exces s calories with body mass index (BMI) of 34.0 to 34.9 in adult 09/30/2017 11/01/2021 CVA (cerebral infarction) 12/22/20112013 Pleural effusion 11/19/2011 12/11/2014 Overview: Small lft pleural effusion Noted on chest x-ray [facility] On 11/13/11.blunting of the lft costophrenic andle. Type II or unspecified type diabetes mellitus without mention of complication, not stated as uncontrolled 07/15/2006 BMI 39.0-39.9,adult 04/16/2017 documented as of this encounter (statuses as of 11/19/2021) [facility] [place] History of Past illness Narrative* Problem Noted Date Resolved Date Uncontrolled type 2 diabetes mellitus with hyper glycemia 01/19/2019 11/01/2021 Last Assessment & Plan: Assessment: on insulin, last A1C 6.5 on 10/19/2021, home glucose often under 100 in AM per patient Class 1 obesity due to exces s calories with body mass index (BMI) of 34.0 to 34.9 in adult 09/30/2017 11/01/2021 CVA (cerebral infarction) 12/22/20112013 Pleural effusion 11/19/2011 12/11/2014 Overview: Small lft pleural effusion Noted on chest x-ray [facility] On 11/13/11.blunting of the lft costophrenic andle. Type II or unspecified type diabetes mellitus without mention of complication, not stated as uncontrolled 07/15/2006 BMI 39.0-39.9,adult 04/16/2017 documented as of this encounter (statuses as of 11/20/2021) [facility] [place] History of Past illness Narrative* Problem Noted Date Resolved Date Uncontrolled type 2 diabetes mellitus with hyper glycemia 01/19/2019 11/01/2021 Last Assessment & Plan: Assessment: on insulin, last A1C 6.5 on 10/19/2021, home glucose often under 100 in AM per patient Class 1 obesity due to exces s calories with body mass index (BMI) of 34.0 to 34.9 in adult 09/30/2017 11/01/2021 CVA (cerebral infarction) 12/22/20112013 Pleural effusion 11/19/2011 12/11/2014 Overview: Small lft pleural effusion Noted on chest x-ray [facility] On 11/13/11.blunting of the lft costophrenic andle. Type II or unspecified type diabetes mellitus without mention of complication, not stated as uncontrolled 07/15/2006 BMI 39.0-39.9,adult 04/16/2017 documented as of this encounter (statuses as of 11/22/2021) [facility] History of Past illness Narrative* Problem Noted Date Resolved Date Uncontrolled type 2 diabetes mellitus with hyper glycemia 01/19/2019 11/01/2021 Last Assessment & Plan: Assessment: on insulin, last A1C 6.5 on 10/19/2021, home glucose often under 100 in AM per patient Class 1 obesity due to exces s calories with body mass index (BMI) of 34.0 to 34.9 in adult 09/30/2017 11/01/2021 CVA (cerebral infarction) 12/22/20112013 Pleural effusion 11/19/2011 12/11/2014 Overview: Small lft pleural effusion Noted on chest x-ray [facility] On 11/13/11.blunting of the lft costophrenic andle. Type II or unspecified type diabetes mellitus without mention of complication, not stated as uncontrolled 07/15/2006 BMI 39.0-39.9,adult 04/16/2017 documented as of this encounter (statuses as of 11/24/2021) [place] [address]-05-2019 History of Past illness Narrative* Problem Noted Date Resolved Date Uncontrolled type 2 diabetes mellitus with hyper glycemia 01/19/2019 11/01/2021 Last Assessment & Plan: Assessment: on insulin, last A1C 6.5 on 10/19/2021, home glucose often under 100 in AM per patient Class 1 obesity due to exces s calories with body mass index (BMI) of 34.0 to 34.9 in adult 09/30/2017 11/01/2021 CVA (cerebral infarction) 12/22/20112013 Pleural effusion 11/19/2011 12/11/2014 Overview: Small lft pleural effusion Noted on chest x-ray [facility] On 11/13/11.blunting of the lft costophrenic andle. Type II or unspecified type diabetes mellitus without mention of complication, not stated as uncontrolled 07/15/2006 BMI 39.0-39.9,adult 04/16/2017 documented as of this encounter (statuses as of 11/25/2021) [facility] History of Past illness Narrative* Problem Noted Date Resolved Date Uncontrolled type 2 diabetes mellitus with hyper glycemia 01/19/2019 11/01/2021 Last Assessment & Plan: Assessment: on insulin, last A1C 6.5 on 10/19/2021, home glucose often under 100 in AM per patient Class 1 obesity due to exces s calories with body mass index (BMI) of 34.0 to 34.9 in adult 09/30/2017 11/01/2021 CVA (cerebral infarction) 12/22/20112013 Pleural effusion 11/19/2011 12/11/2014 Overview: Small lft pleural effusion Noted on chest x-ray [facility] On 11/13/11.blunting of the lft costophrenic andle. Type II or unspecified type diabetes mellitus without mention of complication, not stated as uncontrolled 07/15/2006 BMI 39.0-39.9,adult 04/16/2017 documented as of this encounter (statuses as of 11/25/2021) [facility] History of Past illness Narrative* Problem Noted Date Resolved Date Uncontrolled type 2 diabetes mellitus with hyper glycemia 01/19/2019 11/01/2021 Last Assessment & Plan: Assessment: on insulin, last A1C 6.5 on 10/19/2021, home glucose often under 100 in AM per patient Class 1 obesity due to exces s calories with body mass index (BMI) of 34.0 to 34.9 in adult 09/30/2017 11/01/2021 CVA (cerebral infarction) 12/22/20112013 Pleural effusion 11/19/2011 12/11/2014 Overview: Small lft pleural effusion Noted on chest x-ray [facility] On 11/13/11.blunting of the lft costophrenic andle. Type II or unspecified type diabetes mellitus without mention of complication, not stated as uncontrolled 07/15/2006 BMI 39.0-39.9,adult 04/16/2017 documented as of this encounter (statuses as of 11/26/2021) [facility] [place] History of Past illness Narrative* Problem Noted Date Resolved Date Uncontrolled type 2 diabetes mellitus with hyper glycemia 01/19/2019 11/01/2021 Last Assessment & Plan: Assessment: on insulin, last A1C 6.5 on 10/19/2021, home glucose often under 100 in AM per patient Class 1 obesity due to exces s calories with body mass index (BMI) of 34.0 to 34.9 in adult 09/30/2017 11/01/2021 CVA (cerebral infarction) 12/22/20112013 Pleural effusion 11/19/2011 12/11/2014 Overview: Small lft pleural effusion Noted on chest x-ray [facility] On 11/13/11.blunting of the lft costophrenic andle. Type II or unspecified type diabetes mellitus without mention of complication, not stated as uncontrolled 07/15/2006 BMI 39.0-39.9,adult 04/16/2017 documented as of this encounter (statuses as of 11/27/2021) [facility] [place] History of Past illness Narrative* Problem Noted Date Resolved Date Uncontrolled type 2 diabetes mellitus with hyper glycemia 01/19/2019 11/01/2021 Last Assessment & Plan: Assessment: on insulin, last A1C 6.5 on 10/19/2021, home glucose often under 100 in AM per patient Class 1 obesity due to exces s calories with body mass index (BMI) of 34.0 to 34.9 in adult 09/30/2017 11/01/2021 CVA (cerebral infarction) 12/22/20112013 Pleural effusion 11/19/2011 12/11/2014 Overview: Small lft pleural effusion Noted on chest x-ray [facility] On 11/13/11.blunting of the lft costophrenic andle. Type II or unspecified type diabetes mellitus without mention of complication, not stated as uncontrolled 07/15/2006 BMI 39.0-39.9,adult 04/16/2017 documented as of this encounter (statuses as of 11/27/2021) [facility] History of Past illness Narrative* Problem Noted Date Resolved Date Uncontrolled type 2 diabetes mellitus with hyper glycemia 01/19/2019 11/01/2021 Last Assessment & Plan: Assessment: on insulin, last A1C 6.5 on 10/19/2021, home glucose often under 100 in AM per patient Class 1 obesity due to exces s calories with body mass index (BMI) of 34.0 to 34.9 in adult 09/30/2017 11/01/2021 CVA (cerebral infarction) 12/22/20112013 Pleural effusion 11/19/2011 12/11/2014 Overview: Small lft pleural effusion Noted on chest x-ray [facility] On 11/13/11.blunting of the lft costophrenic andle. Type II or unspecified type diabetes mellitus without mention of complication, not stated as uncontrolled 07/15/2006 BMI 39.0-39.9,adult 04/16/2017 documented as of this encounter (statuses as of 11/28/2021) [facility] History of Past illness Narrative* Problem Noted Date Resolved Date Uncontrolled type 2 diabetes mellitus with hyper glycemia 01/19/2019 11/01/2021 Last Assessment & Plan: Assessment: on insulin, last A1C 6.5 on 10/19/2021, home glucose often under 100 in AM per patient Class 1 obesity due to exces s calories with body mass index (BMI) of 34.0 to 34.9 in adult 09/30/2017 11/01/2021 CVA (cerebral infarction) 12/22/20112013 Pleural effusion 11/19/2011 12/11/2014 Overview: Small lft pleural effusion Noted on chest x-ray [facility] On 11/13/11.blunting of the lft costophrenic andle. Type II or unspecified type diabetes mellitus without mention of complication, not stated as uncontrolled 07/15/2006 BMI 39.0-39.9,adult 04/16/2017 documented as of this encounter (statuses as of 12/02/2021) [facility] History of Past illness Narrative* Problem Noted Date Resolved Date Uncontrolled type 2 diabetes mellitus with hyper glycemia 01/19/2019 11/01/2021 Last Assessment & Plan: Assessment: on insulin, last A1C 6.5 on 10/19/2021, home glucose often under 100 in AM per patient Class 1 obesity due to exces s calories with body mass index (BMI) of 34.0 to 34.9 in adult 09/30/2017 11/01/2021 CVA (cerebral infarction) 12/22/20112013 Pleural effusion 11/19/2011 12/11/2014 Overview: Small lft pleural effusion Noted on chest x-ray [facility] On 11/13/11.blunting of the lft costophrenic andle. Type II or unspecified type diabetes mellitus without mention of complication, not stated as uncontrolled 07/15/2006 BMI 39.0-39.9,adult 04/16/2017 documented as of this encounter (statuses as of 12/05/2021) [facility] History of Past illness Narrative* Problem Noted Date Resolved Date Uncontrolled type 2 diabetes mellitus with hyper glycemia 01/19/2019 11/01/2021 Last Assessment & Plan: Assessment: on insulin, last A1C 6.5 on 10/19/2021, home glucose often under 100 in AM per patient Class 1 obesity due to exces s calories with body mass index (BMI) of 34.0 to 34.9 in adult 09/30/2017 11/01/2021 CVA (cerebral infarction) 12/22/20112013 Pleural effusion 11/19/2011 12/11/2014 Overview: Small lft pleural effusion Noted on chest x-ray [facility] On 11/13/11.blunting of the lft costophrenic andle. Type II or unspecified type diabetes mellitus without mention of complication, not stated as uncontrolled 07/15/2006 BMI 39.0-39.9,adult 04/16/2017 documented as of this encounter (statuses as of 12/05/2021) [facility] History of Past illness Narrative* Problem Noted Date Resolved Date Uncontrolled type 2 diabetes mellitus with hyper glycemia 01/19/2019 11/01/2021 Last Assessment & Plan: Assessment: on insulin, last A1C 6.5 on 10/19/2021, home glucose often under 100 in AM per patient Class 1 obesity due to exces s calories with body mass index (BMI) of 34.0 to 34.9 in adult 09/30/2017 11/01/2021 CVA (cerebral infarction) 12/22/20112013 Pleural effusion 11/19/2011 12/11/2014 Overview: Small lft pleural effusion Noted on chest x-ray [facility] On 11/13/11.blunting of the lft costophrenic andle. Type II or unspecified type diabetes mellitus without mention of complication, not stated as uncontrolled 07/15/2006 BMI 39.0-39.9,adult 04/16/2017 documented as of this encounter (statuses as of 12/09/2021) [facility] History of Past illness Narrative* Problem Noted Date Resolved Date Uncontrolled type 2 diabetes mellitus with hyper glycemia 01/19/2019 11/01/2021 Last Assessment & Plan: Assessment: on insulin, last A1C 6.5 on 10/19/2021, home glucose often under 100 in AM per patient Class 1 obesity due to exces s calories with body mass index (BMI) of 34.0 to 34.9 in adult 09/30/2017 11/01/2021 CVA (cerebral infarction) 12/22/20112013 Pleural effusion 11/19/2011 12/11/2014 Overview: Small lft pleural effusion Noted on chest x-ray wch On 11/13/11.blunting of the lft costophrenic andle. Type II or unspecified type diabetes mellitus without mention of complication, not stated as uncontrolled 07/15/2006 BMI 39.0-39.9,adult 04/16/2017 documented as of this encounter (statuses as of 12/11/2021) [facility]2019 History of Past illness Narrative* Problem Noted Date Resolved Date Uncontrolled type 2 diabetes mellitus with hyper glycemia 01/19/2019 11/01/2021 Last Assessment & Plan: Assessment: on insulin, last A1C 6.5 on 10/19/2021, home glucose often under 100 in AM per patient Class 1 obesity due to exces s calories with body mass index (BMI) of 34.0 to 34.9 in adult 09/30/2017 11/01/2021 CVA (cerebral infarction) 12/22/20112013 Pleural effusion 11/19/2011 12/11/2014 Overview: Small lft pleural effusion Noted on chest x-ray wch On 11/13/11.blunting of the lft costophrenic andle. Type II or unspecified type diabetes mellitus without mention of complication, not stated as uncontrolled 07/15/2006 BMI 39.0-39.9,adult 04/16/2017 documented as of this encounter (statuses as of 12/11/2021) [facility] History of Past illness Narrative* Problem Noted Date Resolved Date Uncontrolled type 2 diabetes mellitus with hyper glycemia 01/19/2019 11/01/2021 Last Assessment & Plan: Assessment: on insulin, last A1C 6.5 on 10/19/2021, home glucose often under 100 in AM per patient Class 1 obesity due to exces s calories with body mass index (BMI) of 34.0 to 34.9 in adult 09/30/2017 11/01/2021 CVA (cerebral infarction) 12/22/20112013 Pleural effusion 11/19/2011 12/11/2014 Overview: Small lft pleural effusion Noted on chest x-ray wch On 11/13/11.blunting of the lft costophrenic andle. Type II or unspecified type diabetes mellitus without mention of complication, not stated as uncontrolled 07/15/2006 BMI 39.0-39.9,adult 04/16/2017 documented as of this encounter (statuses as of 12/20/2021) [facility] History of Past illness Narrative* Problem Noted Date Resolved Date Uncontrolled type 2 diabetes mellitus with hyper glycemia 01/19/2019 11/01/2021 Last Assessment & Plan: Assessment: on insulin, last A1C 6.5 on 10/19/2021, home glucose often under 100 in AM per patient Class 1 obesity due to exces s calories with body mass index (BMI) of 34.0 to 34.9 in adult 09/30/2017 11/01/2021 CVA (cerebral infarction) 12/22/20112013 Pleural effusion 11/19/2011 12/11/2014 Overview: Small lft pleural effusion Noted on chest x-ray wch On 11/13/11.blunting of the lft costophrenic andle. Type II or unspecified type diabetes mellitus without mention of complication, not stated as uncontrolled 07/15/2006 BMI 39.0-39.9,adult 04/16/2017 documented as of this encounter (statuses as of 12/30/2021) [facility] History of Past illness Narrative* Problem Noted Date Resolved Date Uncontrolled type 2 diabetes mellitus with hyper glycemia 01/19/2019 11/01/2021 Last Assessment & Plan: Assessment: on insulin, last A1C 6.5 on 10/19/2021, home glucose often under 100 in AM per patient Class 1 obesity due to exces s calories with body mass index (BMI) of 34.0 to 34.9 in adult 09/30/2017 11/01/2021 CVA (cerebral infarction) 12/22/20112013 Pleural effusion 11/19/2011 12/11/2014 Overview: Small lft pleural effusion Noted on chest x-ray wch On 11/13/11.blunting of the lft costophrenic andle. Type II or unspecified type diabetes mellitus without mention of complication, not stated as uncontrolled 07/15/2006 BMI 39.0-39.9,adult 04/16/2017 documented as of this encounter (statuses as of 12/31/2021) [facility] History of Past illness Narrative* Problem Noted Date Resolved Date Uncontrolled type 2 diabetes mellitus with hyper glycemia 01/19/2019 11/01/2021 Last Assessment & Plan: Assessment: on insulin, last A1C 6.5 on 10/19/2021, home glucose often under 100 in AM per patient Class 1 obesity due to exces s calories with body mass index (BMI) of 34.0 to 34.9 in adult 09/30/2017 11/01/2021 CVA (cerebral infarction) 12/22/20112013 Pleural effusion 11/19/2011 12/11/2014 Overview: Small lft pleural effusion Noted on chest x-ray wch On 11/13/11.blunting of the lft costophrenic andle. Type II or unspecified type diabetes mellitus without mention of complication, not stated as uncontrolled 07/15/2006 BMI 39.0-39.9,adult 04/16/2017 documented as of this encounter (statuses as of 01/01/2022) [facility] History of Past illness Narrative* Problem Noted Date Resolved Date Uncontrolled type 2 diabetes mellitus with hyper glycemia 01/19/2019 11/01/2021 Last Assessment & Plan: Assessment: on insulin, last A1C 6.5 on 10/19/2021, home glucose often under 100 in AM per patient Class 1 obesity due to exces s calories with body mass index (BMI) of 34.0 to 34.9 in adult 09/30/2017 11/01/2021 CVA (cerebral infarction) 12/22/20112013 Pleural effusion 11/19/2011 12/11/2014 Overview: Small lft pleural effusion Noted on chest x-ray wch On 11/13/11.blunting of the lft costophrenic andle. Type II or unspecified type diabetes mellitus without mention of complication, not stated as uncontrolled 07/15/2006 BMI 39.0-39.9,adult 04/16/2017 documented as of this encounter (statuses as of 01/07/2022) [facility] History of Past illness Narrative* Problem Noted Date Resolved Date Uncontrolled type 2 diabetes mellitus with hyper glycemia 01/19/2019 11/01/2021 Last Assessment & Plan: Assessment: on insulin, last A1C 6.5 on 10/19/2021, home glucose often under 100 in AM per patient Class 1 obesity due to exces s calories with body mass index (BMI) of 34.0 to 34.9 in adult 09/30/2017 11/01/2021 CVA (cerebral infarction) 12/22/20112013 Pleural effusion 11/19/2011 12/11/2014 Overview: Small lft pleural effusion Noted on chest x-ray wch On 11/13/11.blunting of the lft costophrenic andle. Type II or unspecified type diabetes mellitus without mention of complication, not stated as uncontrolled 07/15/2006 BMI 39.0-39.9,adult 04/16/2017 documented as of this encounter (statuses as of 01/14/2022) [facility] History of Past illness Narrative* Problem Noted Date Resolved Date Uncontrolled type 2 diabetes mellitus with hyper glycemia 01/19/2019 11/01/2021 Last Assessment & Plan: Assessment: on insulin, last A1C 6.5 on 10/19/2021, home glucose often under 100 in AM per patient Class 1 obesity due to exces s calories with body mass index (BMI) of 34.0 to 34.9 in adult 09/30/2017 11/01/2021 CVA (cerebral infarction) 12/22/20112013 Pleural effusion 11/19/2011 12/11/2014 Overview: Small lft pleural effusion Noted on chest x-ray wch On 11/13/11.blunting of the lft costophrenic andle. Type II or unspecified type diabetes mellitus without mention of complication, not stated as uncontrolled 07/15/2006 BMI 39.0-39.9,adult 04/16/2017 documented as of this encounter (statuses as of 01/24/2022) [facility] History of Past illness Narrative* Problem Noted Date Resolved Date Uncontrolled type 2 diabetes mellitus with hyper glycemia 01/19/2019 11/01/2021 Last Assessment & Plan: Assessment: on insulin, last A1C 6.5 on 10/19/2021, home glucose often under 100 in AM per patient Class 1 obesity due to exces s calories with body mass index (BMI) of 34.0 to 34.9 in adult 09/30/2017 11/01/2021 CVA (cerebral infarction) 12/22/20112013 Pleural effusion 11/19/2011 12/11/2014 Overview: Small lft pleural effusion Noted on chest x-ray wch On 11/13/11.blunting of the lft costophrenic andle. Type II or unspecified type diabetes mellitus without mention of complication, not stated as uncontrolled 07/15/2006 BMI 39.0-39.9,adult 04/16/2017 documented as of this encounter (statuses as of 01/29/2022) [facility] History of Past illness Narrative* Problem Noted Date Resolved Date Uncontrolled type 2 diabetes mellitus with hyper glycemia 01/19/2019 11/01/2021 Last Assessment & Plan: Assessment: on insulin, last A1C 6.5 on 10/19/2021, home glucose often under 100 in AM per patient Class 1 obesity due to exces s calories with body mass index (BMI) of 34.0 to 34.9 in adult 09/30/2017 11/01/2021 CVA (cerebral infarction) 12/22/20112013 Pleural effusion 11/19/2011 12/11/2014 Overview: Small lft pleural effusion Noted on chest x-ray wch On 11/13/11.blunting of the lft costophrenic andle. Type II or unspecified type diabetes mellitus without mention of complication, not stated as uncontrolled 07/15/2006 BMI 39.0-39.9,adult 04/16/2017 documented as of this encounter (statuses as of 02/13/2022) [facility] History of Past illness Narrative* Problem Noted Date Resolved Date Uncontrolled type 2 diabetes mellitus with hyper glycemia 01/19/2019 11/01/2021 Last Assessment & Plan: Assessment: on insulin, last A1C 6.5 on 10/19/2021, home glucose often under 100 in AM per patient Class 1 obesity due to exces s calories with body mass index (BMI) of 34.0 to 34.9 in adult 09/30/2017 11/01/2021 CVA (cerebral infarction) 12/22/20112013 Pleural effusion 11/19/2011 12/11/2014 Overview: Small lft pleural effusion Noted on chest x-ray wch On 11/13/11.blunting of the lft costophrenic andle. Type II or unspecified type diabetes mellitus without mention of complication, not stated as uncontrolled 07/15/2006 BMI 39.0-39.9,adult 04/16/2017 documented as of this encounter (statuses as of 02/14/2022) [facility] History of Past illness Narrative* Problem Noted Date Resolved Date Uncontrolled type 2 diabetes mellitus with hyper glycemia 01/19/2019 11/01/2021 Last Assessment & Plan: Assessment: on insulin, last A1C 6.5 on 10/19/2021, home glucose often under 100 in AM per patient Class 1 obesity due to exces s calories with body mass index (BMI) of 34.0 to 34.9 in adult 09/30/2017 11/01/2021 CVA (cerebral infarction) 12/22/20112013 Pleural effusion 11/19/2011 12/11/2014 Overview: Small lft pleural effusion Noted on chest x-ray wch On 11/13/11.blunting of the lft costophrenic andle. Type II or unspecified type diabetes mellitus without mention of complication, not stated as uncontrolled 07/15/2006 BMI 39.0-39.9,adult 04/16/2017 documented as of this encounter (statuses as of 02/15/2022) [facility] History of Past illness Narrative* Problem Noted Date Resolved Date Uncontrolled type 2 diabetes mellitus with hyper glycemia 01/19/2019 11/01/2021 Last Assessment & Plan: Assessment: on insulin, last A1C 6.5 on 10/19/2021, home glucose often under 100 in AM per patient Class 1 obesity due to exces s calories with body mass index (BMI) of 34.0 to 34.9 in adult 09/30/2017 11/01/2021 CVA (cerebral infarction) 12/22/20112013 Pleural effusion 11/19/2011 12/11/2014 Overview: Small lft pleural effusion Noted on chest x-ray wch On 11/13/11.blunting of the lft costophrenic andle. Type II or unspecified type diabetes mellitus without mention of complication, not stated as uncontrolled 07/15/2006 BMI 39.0-39.9,adult 04/16/2017 documented as of this encounter (statuses as of 03/07/2022) [facility] History of Past illness Narrative* Problem Noted Date Resolved Date Uncontrolled type 2 diabetes mellitus with hyper glycemia 01/19/2019 11/01/2021 Last Assessment & Plan: Assessment: on insulin, last A1C 6.5 on 10/19/2021, home glucose often under 100 in AM per patient Class 1 obesity due to exces s calories with body mass index (BMI) of 34.0 to 34.9 in adult 09/30/2017 11/01/2021 CVA (cerebral infarction) 12/22/20112013 Pleural effusion 11/19/2011 12/11/2014 Overview: Small lft pleural effusion Noted on chest x-ray wch On 11/13/11.blunting of the lft costophrenic andle. Type II or unspecified type diabetes mellitus without mention of complication, not stated as uncontrolled 07/15/2006 BMI 39.0-39.9,adult 04/16/2017 documented as of this encounter (statuses as of 03/24/2022) [facility] History of Past illness Narrative* Problem Noted Date Resolved Date Uncontrolled type 2 diabetes mellitus with hyper glycemia 01/19/2019 11/01/2021 Last Assessment & Plan: Assessment: on insulin, last A1C 6.5 on 10/19/2021, home glucose often under 100 in AM per patient Class 1 obesity due to exces s calories with body mass index (BMI) of 34.0 to 34.9 in adult 09/30/2017 11/01/2021 CVA (cerebral infarction) 12/22/20112013 Pleural effusion 11/19/2011 12/11/2014 Overview: Small lft pleural effusion Noted on chest x-ray wch On 11/13/11.blunting of the lft costophrenic andle. Type II or unspecified type diabetes mellitus without mention of complication, not stated as uncontrolled 07/15/2006 BMI 39.0-39.9,adult 04/16/2017 documented as of this encounter (statuses as of 04/06/2022) [facility] History of Past illness Narrative* Problem Noted Date Resolved Date Uncontrolled type 2 diabetes mellitus with hyper glycemia 01/19/2019 11/01/2021 Last Assessment & Plan: Assessment: on insulin, last A1C 6.5 on 10/19/2021, home glucose often under 100 in AM per patient Class 1 obesity due to exces s calories with body mass index (BMI) of 34.0 to 34.9 in adult 09/30/2017 11/01/2021 CVA (cerebral infarction) 12/22/20112013 Pleural effusion 11/19/2011 12/11/2014 Overview: Small lft pleural effusion Noted on chest x-ray wch On 11/13/11.blunting of the lft costophrenic andle. Type II or unspecified type diabetes mellitus without mention of complication, not stated as uncontrolled 07/15/2006 BMI 39.0-39.9,adult 04/16/2017 documented as of this encounter (statuses as of 04/14/2022) [facility] History of Past illness Narrative* Problem Noted Date Resolved Date Uncontrolled type 2 diabetes mellitus with hyper glycemia 01/19/2019 11/01/2021 Last Assessment & Plan: Assessment: on insulin, last A1C 6.5 on 10/19/2021, home glucose often under 100 in AM per patient Class 1 obesity due to exces s calories with body mass index (BMI) of 34.0 to 34.9 in adult 09/30/2017 11/01/2021 CVA (cerebral infarction) 12/22/20112013 Pleural effusion 11/19/2011 12/11/2014 Overview: Small lft pleural effusion Noted on chest x-ray wch On 11/13/11.blunting of the lft costophrenic andle. Type II or unspecified type diabetes mellitus without mention of complication, not stated as uncontrolled 07/15/2006 BMI 39.0-39.9,adult 04/16/2017 documented as of this encounter (statuses as of 04/19/2022) [facility] History of Past illness Narrative* Problem Noted Date Resolved Date Uncontrolled type 2 diabetes mellitus with hyper glycemia 01/19/2019 11/01/2021 Last Assessment & Plan: Assessment: on insulin, last A1C 6.5 on 10/19/2021, home glucose often under 100 in AM per patient Class 1 obesity due to exces s calories with body mass index (BMI) of 34.0 to 34.9 in adult 09/30/2017 11/01/2021 CVA (cerebral infarction) 12/22/20112013 Pleural effusion 11/19/2011 12/11/2014 Overview: Small lft pleural effusion Noted on chest x-ray wch On 11/13/11.blunting of the lft costophrenic andle. Type II or unspecified type diabetes mellitus without mention of complication, not stated as uncontrolled 07/15/2006 BMI 39.0-39.9,adult 04/16/2017 documented as of this encounter (statuses as of 05/02/2022) [facility] History of Past illness Narrative* Problem Noted Date Resolved Date Uncontrolled type 2 diabetes mellitus with hyper glycemia 01/19/2019 11/01/2021 Last Assessment & Plan: Assessment: on insulin, last A1C 6.5 on 10/19/2021, home glucose often under 100 in AM per patient Class 1 obesity due to exces s calories with body mass index (BMI) of 34.0 to 34.9 in adult 09/30/2017 11/01/2021 CVA (cerebral infarction) 12/22/20112013 Pleural effusion 11/19/2011 12/11/2014 Overview: Small lft pleural effusion Noted on chest x-ray wch On 11/13/11.blunting of the lft costophrenic andle. Type II or unspecified type diabetes mellitus without mention of complication, not stated as uncontrolled 07/15/2006 BMI 39.0-39.9,adult 04/16/2017 documented as of this encounter (statuses as of 05/24/2022) [facility] History of Past illness Narrative* Problem Noted Date Resolved Date Uncontrolled type 2 diabetes mellitus with hyper glycemia 01/19/2019 11/01/2021 Last Assessment & Plan: Assessment: on insulin, last A1C 6.5 on 10/19/2021, home glucose often under 100 in AM per patient Class 1 obesity due to exces s calories with body mass index (BMI) of 34.0 to 34.9 in adult 09/30/2017 11/01/2021 CVA (cerebral infarction) 12/22/20112013 Pleural effusion 11/19/2011 12/11/2014 Overview: Small lft pleural effusion Noted on chest x-ray wch On 11/13/11.blunting of the lft costophrenic andle. Type II or unspecified type diabetes mellitus without mention of complication, not stated as uncontrolled 07/15/2006 BMI 39.0-39.9,adult 04/16/2017 documented as of this encounter (statuses as of 05/26/2022) [facility] History of Past illness Narrative* Problem Noted Date Resolved Date Uncontrolled type 2 diabetes mellitus with hyper glycemia 01/19/2019 11/01/2021 Last Assessment & Plan: Assessment: on insulin, last A1C 6.5 on 10/19/2021, home glucose often under 100 in AM per patient Class 1 obesity due to exces s calories with body mass index (BMI) of 34.0 to 34.9 in adult 09/30/2017 11/01/2021 CVA (cerebral infarction) 12/22/20112013 Pleural effusion 11/19/2011 12/11/2014 Overview: Small lft pleural effusion Noted on chest x-ray wch On 11/13/11.blunting of the lft costophrenic andle. Type II or unspecified type diabetes mellitus without mention of complication, not stated as uncontrolled 07/15/2006 BMI 39.0-39.9,adult 04/16/2017 documented as of this encounter (statuses as of 06/03/2022) [facility] History of Past illness Narrative* Problem Noted Date Resolved Date Uncontrolled type 2 diabetes mellitus with hyper glycemia 01/19/2019 11/01/2021 Last Assessment & Plan: Assessment: on insulin, last A1C 6.5 on 10/19/2021, home glucose often under 100 in AM per patient Class 1 obesity due to exces s calories with body mass index (BMI) of 34.0 to 34.9 in adult 09/30/2017 11/01/2021 CVA (cerebral infarction) 12/22/20112013 Pleural effusion 11/19/2011 12/11/2014 Overview: Small lft pleural effusion Noted on chest x-ray wch On 11/13/11.blunting of the lft costophrenic andle. Type II or unspecified type diabetes mellitus without mention of complication, not stated as uncontrolled 07/15/2006 BMI 39.0-39.9,adult 04/16/2017 documented as of this encounter (statuses as of 06/11/2022) [facility] History of Past illness Narrative* Problem Noted Date Resolved Date Uncontrolled type 2 diabetes mellitus with hyper glycemia 01/19/2019 11/01/2021 Last Assessment & Plan: Assessment: on insulin, last A1C 6.5 on 10/19/2021, home glucose often under 100 in AM per patient Class 1 obesity due to exces s calories with body mass index (BMI) of 34.0 to 34.9 in adult 09/30/2017 11/01/2021 CVA (cerebral infarction) 12/22/20112013 Pleural effusion 11/19/2011 12/11/2014 Overview: Small lft pleural effusion Noted on chest x-ray wch On 11/13/11.blunting of the lft costophrenic andle. Type II or unspecified type diabetes mellitus without mention of complication, not stated as uncontrolled 07/15/2006 BMI 39.0-39.9,adult 04/16/2017 documented as of this encounter (statuses as of 07/14/2022) [facility] History of Past illness Narrative* Problem Noted Date Resolved Date Uncontrolled type 2 diabetes mellitus with hyper glycemia 01/19/2019 11/01/2021 Last Assessment & Plan: Assessment: on insulin, last A1C 6.5 on 10/19/2021, home glucose often under 100 in AM per patient Class 1 obesity due to exces s calories with body mass index (BMI) of 34.0 to 34.9 in adult 09/30/2017 11/01/2021 CVA (cerebral infarction) 12/22/20112013 Pleural effusion 11/19/2011 12/11/2014 Overview: Small lft pleural effusion Noted on chest x-ray wch On 11/13/11.blunting of the lft costophrenic andle. Type II or unspecified type diabetes mellitus without mention of complication, not stated as uncontrolled 07/15/2006 BMI 39.0-39.9,adult 04/16/2017 documented as of this encounter (statuses as of 07/21/2022) [facility] History of Past illness Narrative* Problem Noted Date Resolved Date Uncontrolled type 2 diabetes mellitus with hyper glycemia 01/19/2019 11/01/2021 Last Assessment & Plan: Assessment: on insulin, last A1C 6.5 on 10/19/2021, home glucose often under 100 in AM per patient Class 1 obesity due to exces s calories with body mass index (BMI) of 34.0 to 34.9 in adult 09/30/2017 11/01/2021 CVA (cerebral infarction) 12/22/20112013 Pleural effusion 11/19/2011 12/11/2014 Overview: Small lft pleural effusion Noted on chest x-ray wch On 11/13/11.blunting of the lft costophrenic andle. Type II or unspecified type diabetes mellitus without mention of complication, not stated as uncontrolled 07/15/2006 BMI 39.0-39.9,adult 04/16/2017 documented as of this encounter (statuses as of 08/01/2022) [facility] History of Past illness Narrative* Problem Noted Date Resolved Date Uncontrolled type 2 diabetes mellitus with hyper glycemia 01/19/2019 11/01/2021 Last Assessment & Plan: Assessment: on insulin, last A1C 6.5 on 10/19/2021, home glucose often under 100 in AM per patient Class 1 obesity due to exces s calories with body mass index (BMI) of 34.0 to 34.9 in adult 09/30/2017 11/01/2021 CVA (cerebral infarction) 12/22/20112013 Pleural effusion 11/19/2011 12/11/2014 Overview: Small lft pleural effusion Noted on chest x-ray wch On 11/13/11.blunting of the lft costophrenic andle. Type II or unspecified type diabetes mellitus without mention of complication, not stated as uncontrolled 07/15/2006 BMI 39.0-39.9,adult 04/16/2017 documented as of this encounter (statuses as of 08/23/2022) [facility] History of Past illness Narrative* Problem Noted Date Resolved Date Uncontrolled type 2 diabetes mellitus with hyper glycemia 01/19/2019 11/01/2021 Last Assessment & Plan: Assessment: on insulin, last A1C 6.5 on 10/19/2021, home glucose often under 100 in AM per patient Class 1 obesity due to exces s calories with body mass index (BMI) of 34.0 to 34.9 in adult 09/30/2017 11/01/2021 CVA (cerebral infarction) 12/22/20112013 Pleural effusion 11/19/2011 12/11/2014 Overview: Small lft pleural effusion Noted on chest x-ray wch On 11/13/11.blunting of the lft costophrenic andle. Type II or unspecified type diabetes mellitus without mention of complication, not stated as uncontrolled 07/15/2006 BMI 39.0-39.9,adult 04/16/2017 documented as of this encounter (statuses as of 08/23/2022) [facility] History of Past illness Narrative* Problem Noted Date Resolved Date Uncontrolled type 2 diabetes mellitus with hyper glycemia 01/19/2019 11/01/2021 Last Assessment & Plan: Assessment: on insulin, last A1C 6.5 on 10/19/2021, home glucose often under 100 in AM per patient Class 1 obesity due to exces s calories with body mass index (BMI) of 34.0 to 34.9 in adult 09/30/2017 11/01/2021 CVA (cerebral infarction) 12/22/20112013 Pleural effusion 11/19/2011 12/11/2014 Overview: Small lft pleural effusion Noted on chest x-ray wch On 11/13/11.blunting of the lft costophrenic andle. Type II or unspecified type diabetes mellitus without mention of complication, not stated as uncontrolled 07/15/2006 BMI 39.0-39.9,adult 04/16/2017 documented as of this encounter (statuses as of 09/16/2022) [facility] History of Past illness Narrative* Problem Noted Date Resolved Date Uncontrolled type 2 diabetes mellitus with hyper glycemia 01/19/2019 11/01/2021 Last Assessment & Plan: Assessment: on insulin, last A1C 6.5 on 10/19/2021, home glucose often under 100 in AM per patient Class 1 obesity due to exces s calories with body mass index (BMI) of 34.0 to 34.9 in adult 09/30/2017 11/01/2021 CVA (cerebral infarction) 12/22/20112013 Pleural effusion 11/19/2011 12/11/2014 Overview: Small lft pleural effusion Noted on chest x-ray wch On 11/13/11.blunting of the lft costophrenic andle. Type II or unspecified type diabetes mellitus without mention of complication, not stated as uncontrolled 07/15/2006 BMI 39.0-39.9,adult 04/16/2017 documented as of this encounter (statuses as of 10/16/2022) [facility] History of Past illness Narrative* Problem Noted Date Resolved Date Uncontrolled type 2 diabetes mellitus with hyper glycemia 01/19/2019 11/01/2021 Last Assessment & Plan: Assessment: on insulin, last A1C 6.5 on 10/19/2021, home glucose often under 100 in AM per patient Class 1 obesity due to exces s calories with body mass index (BMI) of 34.0 to 34.9 in adult 09/30/2017 11/01/2021 CVA (cerebral infarction) 12/22/20112013 Pleural effusion 11/19/2011 12/11/2014 Overview: Small lft pleural effusion Noted on chest x-ray wch On 11/13/11.blunting of the lft costophrenic andle. Type II or unspecified type diabetes mellitus without mention of complication, not stated as uncontrolled 07/15/2006 BMI 39.0-39.9,adult 04/16/2017 documented as of this encounter (statuses as of 10/22/2022) [facility] History of Past illness Narrative* Problem Noted Date Resolved Date Uncontrolled type 2 diabetes mellitus with hyper glycemia 01/19/2019 11/01/2021 Last Assessment & Plan: Assessment: on insulin, last A1C 6.5 on 10/19/2021, home glucose often under 100 in AM per patient Class 1 obesity due to exces s calories with body mass index (BMI) of 34.0 to 34.9 in adult 09/30/2017 11/01/2021 CVA (cerebral infarction) 12/22/20112013 Pleural effusion 11/19/2011 12/11/2014 Overview: Small lft pleural effusion Noted on chest x-ray wch On 11/13/11.blunting of the lft costophrenic andle. Type II or unspecified type diabetes mellitus without mention of complication, not stated as uncontrolled 07/15/2006 BMI 39.0-39.9,adult 04/16/2017 documented as of this encounter (statuses as of 10/28/2022) [facility] History of Past illness Narrative* Problem Noted Date Resolved Date Uncontrolled type 2 diabetes mellitus with hyper glycemia 01/19/2019 11/01/2021 Last Assessment & Plan: Assessment: on insulin, last A1C 6.5 on 10/19/2021, home glucose often under 100 in AM per patient Class 1 obesity due to exces s calories with body mass index (BMI) of 34.0 to 34.9 in adult 09/30/2017 11/01/2021 CVA (cerebral infarction) 12/22/20112013 Pleural effusion 11/19/2011 12/11/2014 Overview: Small lft pleural effusion Noted on chest x-ray wch On 11/13/11.blunting of the lft costophrenic andle. Type II or unspecified type diabetes mellitus without mention of complication, not stated as uncontrolled 07/15/2006 BMI 39.0-39.9,adult 04/16/2017 documented as of this encounter (statuses as of 11/13/2022) [facility] History of Past illness Narrative* Problem Noted Date Resolved Date Uncontrolled type 2 diabetes mellitus with hyper glycemia 01/19/2019 11/01/2021 Last Assessment & Plan: Assessment: on insulin, last A1C 6.5 on 10/19/2021, home glucose often under 100 in AM per patient Class 1 obesity due to exces s calories with body mass index (BMI) of 34.0 to 34.9 in adult 09/30/2017 11/01/2021 CVA (cerebral infarction) 12/22/20112013 Pleural effusion 11/19/2011 12/11/2014 Overview: Small lft pleural effusion Noted on chest x-ray wch On 11/13/11.blunting of the lft costophrenic andle. Type II or unspecified type diabetes mellitus without mention of complication, not stated as uncontrolled 07/15/2006 BMI 39.0-39.9,adult 04/16/2017 documented as of this encounter (statuses as of 11/19/2022) [facility] History of Past illness Narrative* Problem Noted Date Resolved Date Uncontrolled type 2 diabetes mellitus with hyper glycemia 01/19/2019 11/01/2021 Last Assessment & Plan: Assessment: on insulin, last A1C 6.5 on 10/19/2021, home glucose often under 100 in AM per patient Class 1 obesity due to exces s calories with body mass index (BMI) of 34.0 to 34.9 in adult 09/30/2017 11/01/2021 CVA (cerebral infarction) 12/22/20112013 Pleural effusion 11/19/2011 12/11/2014 Overview: Small lft pleural effusion Noted on chest x-ray wch On 11/13/11.blunting of the lft costophrenic andle. Type II or unspecified type diabetes mellitus without mention of complication, not stated as uncontrolled 07/15/2006 BMI 39.0-39.9,adult 04/16/2017 documented as of this encounter (statuses as of 12/12/2022) [facility] History of Past illness Narrative* Problem Noted Date Resolved Date Uncontrolled type 2 diabetes mellitus with hyper glycemia 01/19/2019 11/01/2021 Last Assessment & Plan: Assessment: on insulin, last A1C 6.5 on 10/19/2021, home glucose often under 100 in AM per patient Class 1 obesity due to exces s calories with body mass index (BMI) of 34.0 to 34.9 in adult 09/30/2017 11/01/2021 CVA (cerebral infarction) 12/22/20112013 Pleural effusion 11/19/2011 12/11/2014 Overview: Small lft pleural effusion Noted on chest x-ray wch On 11/13/11.blunting of the lft costophrenic andle. Type II or unspecified type diabetes mellitus without mention of complication, not stated as uncontrolled 07/15/2006 BMI 39.0-39.9,adult 04/16/2017 documented as of this encounter (statuses as of 01/13/2023) [facility] History of Past illness Narrative* Problem Noted Date Resolved Date Uncontrolled type 2 diabetes mellitus with hyper glycemia 01/19/2019 11/01/2021 Last Assessment & Plan: Assessment: on insulin, last A1C 6.5 on 10/19/2021, home glucose often under 100 in AM per patient Class 1 obesity due to exces s calories with body mass index (BMI) of 34.0 to 34.9 in adult 09/30/2017 11/01/2021 CVA (cerebral infarction) 12/22/20112013 Pleural effusion 11/19/2011 12/11/2014 Overview: Small lft pleural effusion Noted on chest x-ray wch On 11/13/11.blunting of the lft costophrenic andle. Type II or unspecified type diabetes mellitus without mention of complication, not stated as uncontrolled 07/15/2006 BMI 39.0-39.9,adult 04/16/2017 documented as of this encounter (statuses as of 01/13/2023) [facility] History of Past illness Narrative* Problem Noted Date Resolved Date Uncontrolled type 2 diabetes mellitus with hyper glycemia 01/19/2019 11/01/2021 Last Assessment & Plan: Assessment: on insulin, last A1C 6.5 on 10/19/2021, home glucose often under 100 in AM per patient CVA (cerebral infarction) 12/22/20112013 Pleural effusion 11/19/2011 12/11/2014 Overview: Small lft pleural effusion Noted on chest x-ray wch On 11/13/11.blunting of the lft costophrenic andle. Type II or unspecified type diabetes mellitus without mention of complication, not stated as uncontrolled 07/15/2006 BMI 39.0-39.9,adult 04/16/2017 documented as of this encounter (statuses as of 01/16/2023) [facility] History of Past illness Narrative* Problem Noted Date Resolved Date Uncontrolled type 2 diabetes mellitus with hyper glycemia 01/19/2019 11/01/2021 Last Assessment & Plan: Assessment: on insulin, last A1C 6.5 on 10/19/2021, home glucose often under 100 in AM per patient CVA (cerebral infarction) 12/22/20112013 Pleural effusion 11/19/2011 12/11/2014 Overview: Small lft pleural effusion Noted on chest x-ray wch On 11/13/11.blunting of the lft costophrenic andle. Type II or unspecified type diabetes mellitus without mention of complication, not stated as uncontrolled 07/15/2006 BMI 39.0-39.9,adult 04/16/2017 documented as of this encounter (statuses as of 02/06/2023) [facility] History of Past illness Narrative* Problem Noted Date Resolved Date Uncontrolled type 2 diabetes mellitus with hyper glycemia 01/19/2019 11/01/2021 Last Assessment & Plan: Assessment: on insulin, last A1C 6.5 on 10/19/2021, home glucose often under 100 in AM per patient CVA (cerebral infarction) 12/22/20112013 Pleural effusion 11/19/2011 12/11/2014 Overview: Small lft pleural effusion Noted on chest x-ray wch On 11/13/11.blunting of the lft costophrenic andle. Type II or unspecified type diabetes mellitus without mention of complication, not stated as uncontrolled 07/15/2006 BMI 39.0-39.9,adult 04/16/2017 documented as of this encounter (statuses as of 02/10/2023) [facility] History of Past illness Narrative* Problem Noted Date Diagnosed Date Resolved Date Uncontrolled type 2 diabetes mellitus with hyperglycemia 01/19/2019 11/01/2021 Last Assessment & Plan: Assessment: on insulin, last A1C 6.5 on 10/19/2021, home glucose often under 100 in AM per patient CVA (cerebral infarction) 12/22/2011 Pleural effusion 11/19/2011 12/11/2014 Overview: Small lft pleural effusion Noted on chest x-ray wch On 11/13/11.blunting of the lft costophrenic andle. Type II or unspecified type diabetes mellitus without mention of complication, not stated as uncontrolled 07/15/2006 12/22/2011 BMI 39.0-39.9,adult 04/16/20 17 documented as of this encounter (statuses as of 03/23/2023) [facility] History of Past illness Narrative* Problem Noted Date Diagnosed Date Resolved Date Uncontrolled type 2 diabetes mellitus with hyperglycemia 01/19/2019 11/01/2021 Last Assessment & Plan: Assessment: on insulin, last A1C 6.5 on 10/19/2021, home glucose often under 100 in AM per patient CVA (cerebral infarction) 12/22/2011 Pleural effusion 11/19/2011 12/11/2014 Overview: Small lft pleural effusion Noted on chest x-ray wch On 11/13/11.blunting of the lft costophrenic andle. Type II or unspecified type diabetes mellitus without mention of complication, not stated as uncontrolled 07/15/2006 12/22/2011 BMI 39.0-39.9,adult 04/16/20 17 documented as of this encounter (statuses as of 03/26/2023) [facility] History of Past illness Narrative* Problem Noted Date Diagnosed Date Resolved Date Uncontrolled type 2 diabetes mellitus with hyperglycemia 01/19/2019 11/01/2021 Last Assessment & Plan: Assessment: on insulin, last A1C 6.5 on 10/19/2021, home glucose often under 100 in AM per patient Morbid obesity 09/30/2017 05/01/2023 CVA (cerebral infarction) 12/22/2011 Pleural effusion 11/19/2011 12/11/2014 Overview: Small lft pleural effusion Noted on chest x-ray wch On 11/13/11.blunting of the lft costophrenic andle. Type II or unspecified type diabetes mellitus without mention of complication, not stated as uncontrolled 07/15/2006 12/22/2011 BMI 39.0-39.9,adult 04/16/20 17 documented as of this encounter (statuses as of 05/23/2023) [facility] History of Past illness Narrative* Problem Noted Date Diagnosed Date Resolved Date Uncontrolled type 2 diabetes mellitus with hyperglycemia 01/19/2019 11/01/2021 Last Assessment & Plan: Assessment: on insulin, last A1C 6.5 on 10/19/2021, home glucose often under 100 in AM per patient Morbid obesity 09/30/2017 05/01/2023 CVA (cerebral infarction) 12/22/2011 Pleural effusion 11/19/2011 12/11/2014 Overview: Small lft pleural effusion Noted on chest x-ray wch On 11/13/11.blunting of the lft costophrenic andle. Type II or unspecified type diabetes mellitus without mention of complication, not stated as uncontrolled 07/15/2006 12/22/2011 BMI 39.0-39.9,adult 04/16/20 17 documented as of this encounter (statuses as of 06/11/2023) [facility] History of Past illness Narrative* Problem Noted Date Diagnosed Date Resolved Date Uncontrolled type 2 diabetes mellitus with hyperglycemia 01/19/2019 11/01/2021 Last Assessment & Plan: Assessment: on insulin, last A1C 6.5 on 10/19/2021, home glucose often under 100 in AM per patient Morbid obesity 09/30/2017 05/01/2023 CVA (cerebral infarction) 12/22/2011 Pleural effusion 11/19/2011 12/11/2014 Overview: Small lft pleural effusion Noted on chest x-ray wch On 11/13/11.blunting of the lft costophrenic andle. Type II or unspecified type diabetes mellitus without mention of complication, not stated as uncontrolled 07/15/2006 12/22/2011 BMI 39.0-39.9,adult 04/16/20 17 documented as of this encounter (statuses as of 06/17/2023) [facility] History of Past illness Narrative* Problem Noted Date Diagnosed Date Resolved Date Uncontrolled type 2 diabetes mellitus with hyperglycemia 01/19/2019 11/01/2021 Last Assessment & Plan: Assessment: on insulin, last A1C 6.5 on 10/19/2021, home glucose often under 100 in AM per patient Morbid obesity 09/30/2017 05/01/2023 CVA (cerebral infarction) 12/22/2011 Pleural effusion 11/19/2011 12/11/2014 Overview: Small lft pleural effusion Noted on chest x-ray wch On 11/13/11.blunting of the lft costophrenic andle. Type II or unspecified type diabetes mellitus without mention of complication, not stated as uncontrolled 07/15/2006 12/22/2011 BMI 39.0-39.9,adult 04/16/20 17 documented as of this encounter (statuses as of 07/17/2023) [facility] History of Past illness Narrative* Problem Noted Date Diagnosed Date Resolved Date Uncontrolled type 2 diabetes mellitus with hyperglycemia 01/19/2019 11/01/2021 Last Assessment & Plan: Assessment: on insulin, last A1C 6.5 on 10/19/2021, home glucose often under 100 in AM per patient Morbid obesity 09/30/2017 05/01/2023 CVA (cerebral infarction) 12/22/2011 Pleural effusion 11/19/2011 12/11/2014 Overview: Small lft pleural effusion Noted on chest x-ray [facility] On 11/13/11.blunting of the lft costophrenic andle. Type II or unspecified type diabetes mellitus without mention of complication, not stated as uncontrolled 07/15/2006 12/22/2011 BMI 39.0-39.9,adult 04/16/20 17 documented as of this encounter (statuses as of 07/21/2023) [facility] Diagnosis Pain in left hip- Primary Pain in joint, pelvic region and thigh documented [facility] this encounter [facility] Diagnosis Status post left hip replacement- Primary [facility] joint [facility] other means [facility] Pain in left hip Pain in joint, pelvic region and thigh [facility] Diagnosis Leg swelling- Primary Swelling of limb [facility] Diagnosis Leg swelling Swelling of limb [facility] Diagnosis Onychomycosis- Primary Dermatophytosis of nail Pain in toe of left foot Pain in limb Pain in toe of right foot Pain in limb Diabetic polyneuropathy associated with type 2 diabetes mellitus (HCC) PAD (peripheral artery disease) (HCC) Peripheral vascular disease, unspecified Venous insufficiency Unspecified venous (peripheral) insufficiency [facility] Diagnosis Controlled type 2 diabetes mellitus without complication, with long-term current use of insulin ([facility])- Primary Essential hypertension, benign Mixed hyperlipidemia Vitamin D deficiency Unspecified vitamin D deficiency S/P coronary artery stent placement Postsurgical percutaneous transluminal coronary angioplasty status CVA, old, cognitive deficits Cognitive deficits, late effect of cerebrovascular disease [facility] Diagnosis Controlled type 2 diabetes mellitus without complication, with long-term current use of insulin ([facility])- Primary Essential hypertension, benign Bilateral lower extremity edema Edema Vitamin D deficiency Unspecified vitamin D deficiency Mixed hyperlipidemia Encounter for long-term current use of medication [facility] Diagnosis Onychomycosis- Primary Dermatophytosis of nail Pain in toe of left foot Pain in limb Pain in toe of right foot Pain in limb Diabetic polyneuropathy associated with type 2 diabetes mellitus (HCC) PAD (peripheral artery disease) ([facility]) Peripheral vascular disease, unspecified Xerosis cutis Other specified disease of sebaceous glands Venous insufficiency Unspecified venous (peripheral) insufficiency [facility] Diagnosis Onset Date Resolution Status Cardiomyopathy acute CVA (cerebral vascular accident) acute Atherosclerotic heart diseas e of [place] coronary artery without angina pectoris chronic Essential hypertension chron ic Mixed hyperlipidemia chronic Stenosis of right carotid artery chronic Cardiomyopathy acute Leg edema acute Atherosclerotic heart diseas e of [place] coronary artery without angina pectoris chronic Essential hypertension chron ic Mixed hyperlipidemia [facility] Work Phone: Evaluation note* Diagnosis Onset Date Resolution Status Cardiomyopathy acute Leg edema acute Atherosclerotic heart diseas e of [place] coronary artery without angina pectoris chronic Essential hypertension chron ic Mixed hyperlipidemia [facility] Work Phone: Evaluation note* Diagnosis Controlled type 2 diabetes mellitus without complication, with long-term current use of insulin ([facility])- Primary Essential hypertension, benign [facility] Diagnosis Screening for diabetic retinopathy- Primary Screening for other eye conditions Encounter for immunization Need for other specified prophylactic vaccination against single bacterial disease Mixed hyperlipidemia Controlled type 2 diabetes mellitus without complication, with long-term current use of insulin ([facility]) Coronary artery disease involving [place] heart without angina pectoris, unspecified vessel or lesion type Primary hypertension Unspecified essential hypertension Chronic congestive heart failure, unspecified heart failure type ([facility]) [facility] encounter [facility] Diagnosis Onychomycosis- Primary Dermatophytosis of nail Pain in toe of left foot Pain in limb Pain in toe of right foot Pain in limb Diabetic polyneuropathy associated with type 2 diabetes mellitus (HCC) PAD (peripheral artery disease) (HCC) Peripheral vascular disease, unspecified [facility] Diagnosis Controlled type 2 diabetes mellitus without complication, with long-term current use of insulin ([facility])- Primary Screening for diabetic retinopathy Screening for other eye conditions Encounter for immunization Need for other specified prophylactic vaccination against single bacterial disease Screening for colon cancer Special screening for malignant neoplasms, colon Mixed hyperlipidemia [facility] Diagnosis Mixed hyperlipidemia [facility] Diagnosis Controlled type 2 diabetes mellitus with diabetic neuropathy, with long-term current use of insulin (HCC)- Primary Stage 3a chronic kidney disease (HCC) Obesity (BMI 30-39.9) Obesity, unspecified Syncope, unspecified syncope type [facility] Diagnosis Onychomycosis- Primary Dermatophytosis of nail Pain in toe of left foot Pain in limb Pain in toe of right foot Pain in limb Diabetic polyneuropathy associated with type 2 diabetes mellitus (HCC) PAD (peripheral artery disease) (HCC) Peripheral vascular disease, unspecified Venous insufficiency Unspecified venous (peripheral) insufficiency Xerosis cutis Other specified disease of sebaceous glands [facility] Diagnosis Onset Date Resolution Status Cardiomyopathy acute CVA (cerebral vascular accident) acute Syncope acute Atherosclerotic heart diseas e of [place] coronary artery without angina pectoris chronic Essential hypertension chron ic Mixed hyperlipidemia chronic Stenosis of right carotid artery [facility] Work Phone: Evaluation note* Diagnosis Onychomycosis- Primary Dermatophytosis of nail Pain in toe of left foot Pain in limb Pain in toe of right foot Pain in limb Diabetic polyneuropathy associated with type 2 diabetes mellitus (HCC) PAD (peripheral artery disease) (HCC) Peripheral vascular disease, unspecified [facility] Diagnosis Onset Date Resolution Status Right inguinal hernia acute Cardiomyopathy acute Syncope acute Atherosclerotic heart diseas e of [place] coronary artery without angina pectoris chronic Essential hypertension chron ic Mixed hyperlipidemia [facility] Work Phone: Evaluation note* Diagnosis Onychomycosis- Primary Dermatophytosis of nail Pain in toe of left foot Pain in limb Pain in toe of right foot Pain in limb Diabetic polyneuropathy associated with type 2 diabetes mellitus (HCC) PAD (peripheral artery disease) (HCC) Peripheral vascular disease, unspecified [facility]* Diagnosis Medicare annual wellness visit, subsequent- Primary Routine general medical examination at a health care facility Controlled type 2 diabetes mellitus with diabetic neuropathy, with long-term current use of insulin (HCC) Mixed hyperlipidemia Essential hypertension, benign documented in this encounter [facility] note* Diagnosis Nausea and vomiting, unspecified vomiting type- Primary Epigastric pain Abdominal pain, epigastric Essential hypertension, benign Controlled type 2 diabetes mellitus with diabetic neuropathy, with long-term current use of insulin (HCC) Mixed hyperlipidemia Primary hypertension Unspecified essential hypertension Vitamin D deficiency Unspecified vitamin D deficiency documented in this encounter [facility] note* Diagnosis Onset Date Resolution Status Cardiomyopathy acute Irregular heart rhythm acute Atherosclerotic heart diseas e of [place] coronary artery without angina pectoris chronic Essential hypertension chron ic Mixed hyperlipidemia [facility] Work Phone: Evaluation note* Diagnosis Controlled type 2 diabetes mellitus with diabetic neuropathy, with long-term current use of insulin (HCC)- Primary 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 Prostate cancer (HCC) Malignant neoplasm of prostate Prostate cancer screening Special screening for malignant neoplasm of prostate Chronic congestive heart failure, unspecified heart failure type (HCC) Cellulitis of lower extremity, unspecified laterality Screening for lipid disorders Vitamin D deficiency Unspecified vitamin D deficiency Encounter for therapeutic drug monitoring documented in this encounter [facility] note* Diagnosis Onychomycosis- Primary Dermatophytosis of nail Pain in toe of left foot Pain in limb Pain in toe of right foot Pain in limb Diabetic polyneuropathy associated with type 2 diabetes mellitus (HCC) PAD (peripheral artery disease) (HCC) Peripheral vascular disease, unspecified documented in this encounter [facility] note* Diagnosis DM w/o complication type II, uncontrolled- Primary Type II or unspecified type diabetes mellitus without mention of complication, uncontrolled Vitamin D deficiency Unspecified vitamin D deficiency HYPERLIPIDEMIA NEC/NOS Other and unspecified hyperlipidemia Essential hypertension, benign- Primary Uncontrolled type 2 diabetes mellitus without complication, with long-term current use of insulin Onychomycosis Dermatophytosis of nail Tinea pedis of both feet Vitamin D deficiency Unspecified vitamin D deficiency Preop testing- Primary Preoperative examination, unspecified Primary osteoarthritis of left hip Primary localized osteoarthrosis, pelvic region and thigh Coronary artery disease involving [place] heart without angina pectoris, unspecified vessel or lesion type Essential hypertension, benign Chronic congestive heart failure, unspecified heart failure type (HCC) CVA, old, cognitive deficits Cognitive deficits, late effect of cerebrovascular disease Uncontrolled type 2 diabetes mellitus with hyperglycemia (HCC) Mixed hyperlipidemia Prostate cancer (HCC) Malignant neoplasm of prostate CLL (chronic lymphocytic leukemia) (HCC) Chronic lymphoid leukemia, without mention of having achieved remission Nocturia Controlled type 2 diabetes mellitus with diabetic neuropathy, with long-term current use of insulin (HCC)- Primary Essential hypertension, benign 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 Class 1 obesity due to excess calories with serious comorbidity and body mass index (BMI) of 31.0 to 31.9 in adult Chronic congestive heart failure, unspecified heart failure type (HCC) 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 Obesity, Class I, BMI 30-34.9 Obesity, unspecified Controlled type 2 diabetes mellitus with diabetic neuropathy, with long-term current use of insulin (HCC)- Primary Essential hypertension, benign Prostate cancer (HCC) Malignant neoplasm of prostate Screening for depression Encounter for screening examination for other mental health and behavioral disorders [facility] Diagnosis DM w/o complication type II, uncontrolled- Primary Type II or unspecified type diabetes mellitus without mention of complication, uncontrolled Vitamin D deficiency Unspecified vitamin D deficiency HYPERLIPIDEMIA NEC/NOS Other and unspecified hyperlipidemia Essential hypertension, benign- Primary Uncontrolled type 2 diabetes mellitus without complication, with long-term current use of insulin Onychomycosis Dermatophytosis of nail Tinea pedis of both feet Vitamin D deficiency Unspecified vitamin D deficiency Preop testing- Primary Preoperative examination, unspecified Primary osteoarthritis of left hip Primary localized osteoarthrosis, pelvic region and thigh Coronary artery disease involving [place] heart without angina pectoris, unspecified vessel or lesion type Essential hypertension, benign Chronic congestive heart failure, unspecified heart failure type (HCC) CVA, old, cognitive deficits Cognitive deficits, late effect of cerebrovascular disease Uncontrolled type 2 diabetes mellitus with hyperglycemia (HCC) Mixed hyperlipidemia Prostate cancer (HCC) Malignant neoplasm of prostate CLL (chronic lymphocytic leukemia) (HCC) Chronic lymphoid leukemia, without mention of having achieved remission Nocturia Controlled type 2 diabetes mellitus with diabetic neuropathy, with long-term current use of insulin (HCC)- Primary Essential hypertension, benign 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 Class 1 obesity due to excess calories with serious comorbidity and body mass index (BMI) of 31.0 to 31.9 in adult Chronic congestive heart failure, unspecified heart failure type (HCC) 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 Diagnosis DM w/o complication type II, uncontrolled- Primary Type II or unspecified type diabetes mellitus without mention of complication, uncontrolled Vitamin D deficiency Unspecified vitamin D deficiency HYPERLIPIDEMIA NEC/NOS Other and unspecified hyperlipidemia Essential hypertension, benign- Primary Uncontrolled type 2 diabetes mellitus without complication, with long-term current use of insulin Onychomycosis Dermatophytosis of nail Tinea pedis of both feet Vitamin D deficiency Unspecified vitamin D deficiency Preop testing- Primary Preoperative examination, unspecified Primary osteoarthritis of left hip Primary localized osteoarthrosis, pelvic region and thigh Coronary artery disease involving [place] heart without angina pectoris, unspecified vessel or lesion type Essential hypertension, benign Chronic congestive heart failure, unspecified heart failure type (HCC) CVA, old, cognitive deficits Cognitive deficits, late effect of cerebrovascular disease Uncontrolled type 2 diabetes mellitus with hyperglycemia (HCC) Mixed hyperlipidemia Prostate cancer (HCC) Malignant neoplasm of prostate CLL (chronic lymphocytic leukemia) (HCC) Chronic lymphoid leukemia, without mention of having achieved remission Nocturia Controlled type 2 diabetes mellitus with diabetic neuropathy, with long-term current use of insulin (HCC)- Primary Essential hypertension, benign 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 Class 1 obesity due to excess calories with serious comorbidity and body mass index (BMI) of 31.0 to 31.9 in adult Chronic congestive heart failure, unspecified heart failure type (HCC) 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 Obesity, Class I, BMI 30-34.9 Obesity, unspecified Screening for depression Encounter for screening examination for other mental health and behavioral disorders [facility] Diagnosis DM w/o complication type II, uncontrolled- Primary Type II or unspecified type diabetes mellitus without mention of complication, uncontrolled Vitamin D deficiency Unspecified vitamin D deficiency HYPERLIPIDEMIA NEC/NOS Other and unspecified hyperlipidemia Essential hypertension, benign- Primary Uncontrolled type 2 diabetes mellitus without complication, with long-term current use of insulin Onychomycosis Dermatophytosis of nail Tinea pedis of both feet Vitamin D deficiency Unspecified vitamin D deficiency Preop testing- Primary Preoperative examination, unspecified Primary osteoarthritis of left hip Primary localized osteoarthrosis, pelvic region and thigh Coronary artery disease involving [place] heart without angina pectoris, unspecified vessel or lesion type Essential hypertension, benign Chronic congestive heart failure, unspecified heart failure type (HCC) CVA, old, cognitive deficits Cognitive deficits, late effect of cerebrovascular disease Uncontrolled type 2 diabetes mellitus with hyperglycemia (HCC) Mixed hyperlipidemia Prostate cancer (HCC) Malignant neoplasm of prostate CLL (chronic lymphocytic leukemia) (HCC) Chronic lymphoid leukemia, without mention of having achieved remission Nocturia Controlled type 2 diabetes mellitus with diabetic neuropathy, with long-term current use of insulin (HCC)- Primary Essential hypertension, benign 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 Class 1 obesity due to excess calories with serious comorbidity and body mass index (BMI) of 31.0 to 31.9 in adult Chronic congestive heart failure, unspecified heart failure type (HCC) 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 Obesity, Class I, BMI 30-34.9 Obesity, unspecified Controlled type 2 diabetes mellitus with diabetic neuropathy, with long-term current use of insulin (HCC)- Primary Mixed hyperlipidemia Statin intolerance Other drug allergy Vitamin D deficiency Unspecified vitamin D deficiency Essential hypertension, benign Class 1 obesity due to excess calories with body mass index (BMI) of 34.0 to 34.9 in adult, unspecified whether serious comorbidity present Encounter for immunization Need for other specified prophylactic vaccination against single bacterial disease [facility] Diagnosis DM w/o complication type II, uncontrolled- Primary Type II or unspecified type diabetes mellitus without mention of complication, uncontrolled Vitamin D deficiency Unspecified vitamin D deficiency HYPERLIPIDEMIA NEC/NOS Other and unspecified hyperlipidemia Essential hypertension, benign- Primary Uncontrolled type 2 diabetes mellitus without complication, with long-term current use of insulin Onychomycosis Dermatophytosis of nail Tinea pedis of both feet Vitamin D deficiency Unspecified vitamin D deficiency Preop testing- Primary Preoperative examination, unspecified Primary osteoarthritis of left hip Primary localized osteoarthrosis, pelvic region and thigh Coronary artery disease involving [place] heart without angina pectoris, unspecified vessel or lesion type Essential hypertension, benign Chronic congestive heart failure, unspecified heart failure type (HCC) CVA, old, cognitive deficits Cognitive deficits, late effect of cerebrovascular disease Uncontrolled type 2 diabetes mellitus with hyperglycemia (HCC) Mixed hyperlipidemia Prostate cancer (HCC) Malignant neoplasm of prostate CLL (chronic lymphocytic leukemia) (HCC) Chronic lymphoid leukemia, without mention of having achieved remission Nocturia Controlled type 2 diabetes mellitus with diabetic neuropathy, with long-term current use of insulin (HCC)- Primary Essential hypertension, benign 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 Class 1 obesity due to excess calories with serious comorbidity and body mass index (BMI) of 31.0 to 31.9 in adult Chronic congestive heart failure, unspecified heart failure type (HCC) 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 Obesity, Class I, BMI 30-34.9 Obesity, unspecified Controlled type 2 diabetes mellitus with diabetic neuropathy, with long-term current use of insulin (HCC)- Primary [facility] Diagnosis DM w/o complication type II, uncontrolled- Primary Type II or unspecified type diabetes mellitus without mention of complication, uncontrolled Vitamin D deficiency Unspecified vitamin D deficiency HYPERLIPIDEMIA NEC/NOS Other and unspecified hyperlipidemia Essential hypertension, benign- Primary Uncontrolled type 2 diabetes mellitus without complication, with long-term current use of insulin Onychomycosis Dermatophytosis of nail Tinea pedis of both feet Vitamin D deficiency Unspecified vitamin D deficiency Preop testing- Primary Preoperative examination, unspecified Primary osteoarthritis of left hip Primary localized osteoarthrosis, pelvic region and thigh Coronary artery disease involving [place] heart without angina pectoris, unspecified vessel or lesion type Essential hypertension, benign Chronic congestive heart failure, unspecified heart failure type (HCC) CVA, old, cognitive deficits Cognitive deficits, late effect of cerebrovascular disease Uncontrolled type 2 diabetes mellitus with hyperglycemia (HCC) Mixed hyperlipidemia Prostate cancer (HCC) Malignant neoplasm of prostate CLL (chronic lymphocytic leukemia) (HCC) Chronic lymphoid leukemia, without mention of having achieved remission Nocturia Controlled type 2 diabetes mellitus with diabetic neuropathy, with long-term current use of insulin (HCC)- Primary Essential hypertension, benign 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 Class 1 obesity due to excess calories with serious comorbidity and body mass index (BMI) of 31.0 to 31.9 in adult Chronic congestive heart failure, unspecified heart failure type (HCC) 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* Diagnosis DM w/o complication type II, uncontrolled- Primary Type II or unspecified type diabetes mellitus without mention of complication, uncontrolled Vitamin D deficiency Unspecified vitamin D deficiency HYPERLIPIDEMIA NEC/NOS Other and unspecified hyperlipidemia Essential hypertension, benign- Primary Uncontrolled type 2 diabetes mellitus without complication, with long-term current use of insulin Onychomycosis Dermatophytosis of nail Tinea pedis of both feet Vitamin D deficiency Unspecified vitamin D deficiency Preop testing- Primary Preoperative examination, unspecified Primary osteoarthritis of left hip Primary localized osteoarthrosis, pelvic region and thigh Coronary artery disease involving [place] heart without angina pectoris, unspecified vessel or lesion type Essential hypertension, benign Chronic congestive heart failure, unspecified heart failure type (HCC) CVA, old, cognitive deficits Cognitive deficits, late effect of cerebrovascular disease Uncontrolled type 2 diabetes mellitus with hyperglycemia (HCC) Mixed hyperlipidemia Prostate cancer (HCC) Malignant neoplasm of prostate CLL (chronic lymphocytic leukemia) (HCC) Chronic lymphoid leukemia, without mention of having achieved remission Nocturia Controlled type 2 diabetes mellitus with diabetic neuropathy, with long-term current use of insulin (HCC)- Primary Essential hypertension, benign 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 Diagnosis DM w/o complication type II, uncontrolled- Primary Type II or unspecified type diabetes mellitus without mention of complication, uncontrolled Vitamin D deficiency Unspecified vitamin D deficiency HYPERLIPIDEMIA NEC/NOS Other and unspecified hyperlipidemia Essential hypertension, benign- Primary Uncontrolled type 2 diabetes mellitus without complication, with long-term current use of insulin Onychomycosis Dermatophytosis of nail Tinea pedis of both feet Vitamin D deficiency Unspecified vitamin D deficiency Preop testing- Primary Preoperative examination, unspecified Primary osteoarthritis of left hip Primary localized osteoarthrosis, pelvic region and thigh Coronary artery disease involving [place] heart without angina pectoris, unspecified vessel or lesion type Essential hypertension, benign Chronic congestive heart failure, unspecified heart failure type (HCC) CVA, old, cognitive deficits Cognitive deficits, late effect of cerebrovascular disease Uncontrolled type 2 diabetes mellitus with hyperglycemia (HCC) Mixed hyperlipidemia Prostate cancer (HCC) Malignant neoplasm of prostate CLL (chronic lymphocytic leukemia) (HCC) Chronic lymphoid leukemia, without mention of having achieved remission Nocturia Controlled type 2 diabetes mellitus with diabetic neuropathy, with long-term current use of insulin (HCC)- Primary Essential hypertension, benign 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 Class 1 obesity due to excess calories with serious comorbidity and body mass index (BMI) of 31.0 to 31.9 in adult Chronic congestive heart failure, unspecified heart failure type (HCC) 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 Obesity, Class I, BMI 30-34.9 Obesity, unspecified Diabetic polyneuropathy associated with type 2 diabetes mellitus (HCC)- Primary Onychomycosis Dermatophytosis of nail Pain in toe of left foot Pain in limb Pain in toe of right foot Pain in limb PAD (peripheral artery disease) Peripheral vascular disease, unspecified [facility] Diagnosis DM w/o complication type II, uncontrolled- Primary Type II or unspecified type diabetes mellitus without mention of complication, uncontrolled Vitamin D deficiency Unspecified vitamin D deficiency HYPERLIPIDEMIA NEC/NOS Other and unspecified hyperlipidemia Essential hypertension, benign- Primary Uncontrolled type 2 diabetes mellitus without complication, with long-term current use of insulin Onychomycosis Dermatophytosis of nail Tinea pedis of both feet Vitamin D deficiency Unspecified vitamin D deficiency Preop testing- Primary Preoperative examination, unspecified Primary osteoarthritis of left hip Primary localized osteoarthrosis, pelvic region and thigh Coronary artery disease involving [place] heart without angina pectoris, unspecified vessel or lesion type Essential hypertension, benign Chronic congestive heart failure, unspecified heart failure type (HCC) CVA, old, cognitive deficits Cognitive deficits, late effect of cerebrovascular disease Uncontrolled type 2 diabetes mellitus with hyperglycemia (HCC) Mixed hyperlipidemia Prostate cancer (HCC) Malignant neoplasm of prostate CLL (chronic lymphocytic leukemia) (HCC) Chronic lymphoid leukemia, without mention of having achieved remission Nocturia Controlled type 2 diabetes mellitus with diabetic neuropathy, with long-term current use of insulin (HCC)- Primary Essential hypertension, benign 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 Class 1 obesity due to excess calories with serious comorbidity and body mass index (BMI) of 31.0 to 31.9 in adult Chronic congestive heart failure, unspecified heart failure type (HCC) 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 Obesity, Class I, BMI 30-34.9 Obesity, unspecified Controlled type 2 diabetes mellitus with diabetic neuropathy, with long-term current use of insulin (HCC) documented [facility] noteNo assessment information availableWC[facility] Work Phone: Evaluation note* Diagnosis DM w/o complication type II, uncontrolled- Primary Type II or unspecified type diabetes mellitus without mention of complication, uncontrolled Vitamin D deficiency Unspecified vitamin D deficiency HYPERLIPIDEMIA NEC/NOS Other and unspecified hyperlipidemia Essential hypertension, benign- Primary Uncontrolled type 2 diabetes mellitus without complication, with long-term current use of insulin Onychomycosis Dermatophytosis of nail Tinea pedis of both feet Vitamin D deficiency Unspecified vitamin D deficiency Preop testing- Primary Preoperative examination, unspecified Primary osteoarthritis of left hip Primary localized osteoarthrosis, pelvic region and thigh Coronary artery disease involving [place] heart without angina pectoris, unspecified vessel or lesion type Essential hypertension, benign Chronic congestive heart failure, unspecified heart failure type (HCC) CVA, old, cognitive deficits Cognitive deficits, late effect of cerebrovascular disease Uncontrolled type 2 diabetes mellitus with hyperglycemia (HCC) Mixed hyperlipidemia Prostate cancer (HCC) Malignant neoplasm of prostate CLL (chronic lymphocytic leukemia) (HCC) Chronic lymphoid leukemia, without mention of having achieved remission Nocturia Controlled type 2 diabetes mellitus with diabetic neuropathy, with long-term current use of insulin (HCC)- Primary Essential hypertension, benign 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 Class 1 obesity due to excess calories with serious comorbidity and body mass index (BMI) of 31.0 to 31.9 in adult Chronic congestive heart failure, unspecified heart failure type (HCC) 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 Obesity, Class I, BMI 30-34.9 Obesity, unspecified Controlled type 2 diabetes mellitus with diabetic neuropathy, with long-term current use of insulin (HCC)- Primary Primary hypertension Unspecified essential hypertension Microalbuminuria due to type 2 diabetes mellitus (HCC) Bilateral lower extremity edema Edema Vitamin D deficiency Unspecified vitamin D deficiency Mixed hyperlipidemia [facility] Diagnosis DM w/o complication type II, uncontrolled- Primary Type II or unspecified type diabetes mellitus without mention of complication, uncontrolled Vitamin D deficiency Unspecified vitamin D deficiency HYPERLIPIDEMIA NEC/NOS Other and unspecified hyperlipidemia Essential hypertension, benign- Primary Uncontrolled type 2 diabetes mellitus without complication, with long-term current use of insulin Onychomycosis Dermatophytosis of nail Tinea pedis of both feet Vitamin D deficiency Unspecified vitamin D deficiency Preop testing- Primary Preoperative examination, unspecified Primary osteoarthritis of left hip Primary localized osteoarthrosis, pelvic region and thigh Coronary artery disease involving [place] heart without angina pectoris, unspecified vessel or lesion type Essential hypertension, benign Chronic congestive heart failure, unspecified heart failure type (HCC) CVA, old, cognitive deficits Cognitive deficits, late effect of cerebrovascular disease Uncontrolled type 2 diabetes mellitus with hyperglycemia (HCC) Mixed hyperlipidemia Prostate cancer (HCC) Malignant neoplasm of prostate CLL (chronic lymphocytic leukemia) (HCC) Chronic lymphoid leukemia, without mention of having achieved remission Nocturia Controlled type 2 diabetes mellitus with diabetic neuropathy, with long-term current use of insulin (HCC)- Primary Essential hypertension, benign 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 Class 1 obesity due to excess calories with serious comorbidity and body mass index (BMI) of 31.0 to 31.9 in adult Chronic congestive heart failure, unspecified heart failure type (HCC) 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 Obesity, Class I, BMI 30-34.9 Obesity, unspecified Onychomycosis- Primary Dermatophytosis of nail Pain in toe of left foot Pain in limb Pain in toe of right foot Pain in limb PAD (peripheral artery disease) Peripheral vascular disease, unspecified Diabetic polyneuropathy associated with type 2 diabetes mellitus (HCC) Venous insufficiency Unspecified venous (peripheral) insufficiency [facility] Diagnosis Onset Date Resolution Status Admit Date Cardiomyopathy acute March 9:57am Atherosclerotic heart diseas e of [place] coronary artery without angina pectoris chronic March 17, 2025 9:57am Essential hypertension chronic [place] 2024 9:57am Mixed hyperlipidemia chronic Augu st 2024 9:57am [facility] Work Phone: Hospital Discharge instructions Additional Instructions Return to the emergency department with inability to take medications, increased nausea and vomiting, abdominal pain, new or worsening symptoms.[facility] Work Phone: Patient's home Plan of care note* Visit Details Visit Type -PT SOC Discipline -Physical Therapy Problems Problem Description Start Date Status Goals Interve ntions Medication Education Disciplines: Skilled Services 11/13/2021 Active 1 goal linked to scheduled/documen orestes intervention 1 goal intervention scheduled/document ed in this visit Sepsis Disciplines: Skilled Services 11/13/2021 Active 1 goal linked to scheduled/documen orestes intervention 1 goal intervention scheduled/document ed in this visit Physician Specific Parameters Disciplines: Skilled Services 11/13/2021 Active 1 goal linked to scheduled/documen orestes intervention 1 goal intervention scheduled/document ed in this visit Risk for Falls Disciplines: Skilled Services 11/13/2021 Active 1 goal linked to scheduled/documen orestes intervention 1 goal intervention scheduled/document ed in this visit Pain Disciplines: Skilled Services 11/13/2021 Active 1 goal linked to scheduled/documen orestes intervention 1 goal intervention scheduled/document ed in this visit Diabetic Foot Care Disciplines: Skilled Services 11/13/2021 Active 1 goal linked to scheduled/documen orestes intervention 1 goal intervention scheduled/document ed in this visit High Risk Medications Disciplines: Skilled Services 11/13/2021 Active 1 goal linked to scheduled/documen orestes intervention 1 goal intervention scheduled/document ed in this visit Advance Directives Disciplines: Skilled Services 11/13/2021 Resolved on 11/13/2021 1 goal linked to scheduled/documen orestes intervention 1 goal intervention scheduled/document ed in this visit PT Impaired muscle performance and/or ROM Disciplines: PT 11/13/2021 Active 1 goal linked to scheduled/documen orestes intervention 1 goal intervention scheduled/document ed in this visit PT Orthopedic Condition Disciplines: PT 11/13/2021 Active 1 goal linked to scheduled/documen orestes intervention 3 goal interventions scheduled/document ed in this visit PT Learning Assessment Disciplines: PT 11/13/2021 Active 1 goal linked to scheduled/documen orestes intervention 1 goal intervention scheduled/document ed in this visit Goals Goal Associated Problem Outcome Goal Met? Visit Notes Patient/caregiver will demonstrate ability to obtain, store, identify and administer ordered medications, keep accurate medication list in home, and adhere to medication schedule Medication Education No Patient/caregiver will be able to identify signs/symptoms of sepsis infection and will verbalize actions to take if suspected Sepsis No Patient to maintain parameters within physician-specified ranges Physician Specific Parameters No Manage Risk for falls Description: Patient/caregiver will verbalize knowledge of individualized fall prevention strategies by 12/14/21. . Risk for Falls No Manage Pain Description: Patient/caregiver will verbalize knowledge and understanding of appropriate techniques to control pain, including pain medication and non-pharmacological techniques. Patient will verbalize or demonstrate an acceptable level of pain as evidenced by a pain score of <5/10 and improvement in ability to perform activities of daily living to be achieved by 12/14/21. . Pain No Manage diabetic foot care Description: Patient/caregiver will demonstrate basic understanding of and compliance with diabetic self-care management as evidenced by verbalizing purpose of daily foot care and assessment by 12/14/21. Diabetic Foot Care No Patient/caregiver will teach back high risk medication side effect and precaution education High Risk Medications No Patient/caregiver will make healthcare providers aware of Advance Directives Advance Directives Completed Yes Improved Muscle Performance and/or ROM Description: LTG: Patient will demonstrate improved muscle performance to meet functional goals as evidenced by ability to tolerate 10 min of standing activity, to be achieved by 12/14/21. . STG: Patient and/or caregiver will verbalize/demonstrate independence with home exercise program, to improve functional mobility, to be achieved by 11/23/21. PT Impaired muscle performance and/or ROM No Manage Orthopedic Condition Description: Improve patient and/or caregiver understanding of post surgical and/or non-surgical orthopedic intervention management as evidenced by patient and/or caregiver able to verbalize, demonstrate, and teach back instruction, to be achieved by 12/14/21. . PT Orthopedic Condition No Demonstrate understanding of education Description: Patient and/or caregiver will understand educational instruction to be achieved by 12/14/21. . PT Learning Assessment No Interventions Intervention Associated Problem/Goal Status Variance Visit Notes Medication Education Description: Evaluate/instruct patient/caregiver on obtaining, storing, identifying and administering ordered medications as well as keeping accurate medication list in the home and adhereing to medication schedule Problem:Medication Education Goal:Patient/caregive r will demonstrate ability to obtain, store, identify and administer ordered medications, keep accurate medication list in home, and adhere to medication schedule Completed Patient instructed on importance of keeping accurate medication list in home. Risk of Sepsis Description: Patient is at risk for sepsis. Monitor closely for s/s of sepsis. Problem:Sepsis Goal:Patient/caregive r will be able to identify signs/symptoms of sepsis infection and will verbalize actions to take if suspected Completed SPO2 Description: Notify Dr. Ochoa if pulse ox is <92% at rest. Problem:Physician Specific Parameters Goal:Patient to maintain parameters within physician-specified ranges Completed Instruct on individual fall risk factors and strategies to prevent falls and injuries caused by falls. Problem:Risk for Falls Goal:Manage Risk for falls Completed PT: Patient instructed on Eliminating Environmental Hazards: Keep pathways clear, Remove unsafe rugs, Move furniture from pathways, Keep rooms and walkways well lit and Wear supportive shoes or non-skid socks Managing Impaired Functional Mobility: Use assistive device(s): Walker and Caregiver to provide assist with: Transfers and ADL/IADLs Managing Pain Instruct on pain and instruct on strategies to control pain Problem:Pain Goal:Manage Pain Completed patient instructed on techniques to control pain including Pharmacological measures and Non-Pharmacological measures; rest, positioning/elevation, mobility/therapeutic exercise and use of thermal modalities, apply ice to affected area . Monitor lower extremities for skin lesions and educate on proper foot care Problem:Diabetic Foot Care Goal:Manage diabetic foot care Completed patient instructed on diabetic foot care including daily skin inspection. Opioids- Instruct on high risk medication Problem:High Risk Medications Goal:Patient/caregive r will teach back high risk medication side effect and precaution education Completed patient instructed on the following: Possible side effects of opioid medication including sedation, decreased rate of breathing, and constipation. Instructed on reporting over sedation to prescribing physician, practice deep breathing techniques every hour while awake, and prevention of constipation by increasing water and fiber intake, increase activity as tolerated, and use stool softener as prescribed. Only take opioids as prescribed, do not share your medications, and take proper precautions in storing and properly disposing of opioids once no longer needed. Follow providers guidelines for driving and weaning from prescribed opioid. Determine patient's Advance Directive Status Description: Patient does not have advance directives. Patient/Caregiver declined Advance Directive information. Problem:Advance Directives Goal:Patient/caregive r will make healthcare providers aware of Advance Directives Completed Discussed Advance Directives with Patient and/or Caregiver. Referred patient to Home Care handbook for further information on Healthcare DPOA & Living Will. Physical Therapy Therapeutic Exercises Problem:PT Impaired muscle performance and/or ROM Goal:Improved Muscle Performance and/or ROM Completed patient and caregiver instructed on strengthening exercises including Supine : GS,QS,HS, HIPADD, HIP BD, HEEL SLIDES, SAQ, X 10 with AA and plastic bag with verbal, tactile and written cues for technique /reps/frequency . patient and caregiver instructed to perform home exercise program twice a day which included hourly ambulation . Instruct on orthopedic precautions and weight bearing restrictions Description: Orthopedic precautions including left posterior hip: no hip flexion > 90 degrees, no adduction and no IR/ER rotation of involved extermity. Weight bearing restrictions include: WBAT of involved extremity. Problem:PT Orthopedic Condition Goal:Manage Orthopedic Condition Completed patient instructed on orthopedic precautions and weight bearing restrictions. Instruct on management of edema Problem:PT Orthopedic Condition Goal:Manage Orthopedic Condition Completed Instruct patient on management of edema including elevation of LLE above the level of the heart and ice. Instruct on self-management of post surgical and/or non-surgical orthopedic intervention Problem:PT Orthopedic Condition Goal:Manage Orthopedic Condition Completed patient instructed on managagement of orthopedic condition, staying well hydrated, signs and symptoms of infection, signs and symptoms of DVT/PE, follow provider guidance for showering and instructed on when to call provider. Instruct and educate on knowledge deficits Problem:PT Learning Assessment Goal:Demonstrate understanding of education Completed patient and caregiver verbalize and/or demonstrate understanding of physical therapy education including home exercise program, orthopedic condition management, surgical precautions, pain management and fall prevention strategies. Education methods include: verbal cues and written instructions. Further education required to improve knowledge and compliance with home exercise program, orthopedic condition management and pain management. [facility]* Visit Details Visit Type -AIR PRESS OPERATOR ROUTINE Discipline -Physical Therapy Problems Problem Description Start Date Status Goals Interve ntions Medication Education Disciplines: Skilled Services 11/13/2021 Active 1 goal linked to scheduled/document ed intervention 1 goal intervention scheduled/document ed in this visit Sepsis Disciplines: Skilled Services 11/13/2021 Active 1 goal linked to scheduled/document ed intervention 1 goal intervention scheduled/document ed in this visit Physician Specific Parameters Disciplines: Skilled Services 11/13/2021 Active 1 goal linked to scheduled/document ed intervention 1 goal intervention scheduled/document ed in this visit Risk for Falls Disciplines: Skilled Services 11/13/2021 Active 1 goal linked to scheduled/document ed intervention 1 goal intervention scheduled/document ed in this visit Pain Disciplines: Skilled Services 11/13/2021 Active 1 goal linked to scheduled/document ed intervention 1 goal intervention scheduled/document ed in this visit Diabetic Foot Care Disciplines: Skilled Services 11/13/2021 Active 1 goal linked to scheduled/document ed intervention 1 goal intervention scheduled/document ed in this visit Discharge Disciplines: Skilled Services 11/13/2021 Active 1 goal linked to scheduled/document ed intervention 1 goal intervention scheduled/document ed in this visit PT Impaired muscle performance and/or ROM Disciplines: PT 11/13/2021 Active 1 goal linked to scheduled/document ed intervention 1 goal intervention scheduled/document ed in this visit PT Impaired mobility Disciplines: PT 11/13/2021 Active 1 goal linked to scheduled/document ed intervention 1 goal intervention scheduled/document ed in this visit PT Impaired gait Disciplines: PT 11/13/2021 Active 1 goal linked to scheduled/document ed intervention 1 goal intervention scheduled/document ed in this visit PT Orthopedic Condition Disciplines: PT 11/13/2021 Active 1 goal linked to scheduled/document ed intervention 3 goal interventions scheduled/document ed in this visit PT Learning Assessment Disciplines: PT 11/13/2021 Active 1 goal linked to scheduled/document ed intervention 1 goal intervention scheduled/document ed in this visit Goals Goal Associated Problem Outcome Goal Met? Visit Notes Patient/caregiver will demonstrate ability to obtain, store, identify and administer ordered medications, keep accurate medication list in home, and adhere to medication schedule Medication Education No Patient/caregiver will be able to identify signs/symptoms of sepsis infection and will verbalize actions to take if suspected Sepsis No Patient to maintain parameters within physician-specified ranges Physician Specific Parameters No Manage Risk for falls Description: Patient/caregiver will verbalize knowledge of individualized fall prevention strategies by 12/14/21. . Risk for Falls No Manage Pain Description: Patient/caregiver will verbalize knowledge and understanding of appropriate techniques to control pain, including pain medication and non-pharmacological techniques. Patient will verbalize or demonstrate an acceptable level of pain as evidenced by a pain score of <5/10 and improvement in ability to perform activities of daily living to be achieved by 12/14/21. . Pain No Manage diabetic foot care Description: Patient/caregiver will demonstrate basic understanding of and compliance with diabetic self-care management as evidenced by verbalizing purpose of daily foot care and assessment by 12/14/21. Diabetic Foot Care No Manage discharge planning Description: Patient/caregiver will verbalize understanding of ongoing discharge plan provided related to disease management, arrangements for outpatient and/or community services, obtaining medications, supplies, and DME, as needed. Discharge No Improved Muscle Performance and/or ROM Description: LTG: Patient will demonstrate improved muscle performance to meet functional goals as evidenced by ability to tolerate 10 min of standing activity, to be achieved by 12/14/21. . STG: Patient and/or caregiver will verbalize/demonstrate independence with home exercise program, to improve functional mobility, to be achieved by 11/23/21. PT Impaired muscle performance and/or ROM No Improved Transfers Description: LTG: Patient will demonstrate safe transfers to/from bed, chair, toilet, shower/tub and car independently with AD, to be achieved by 12/14/21. . PT Impaired mobility No Improved Gait Description: STG: Patient will demonstrate improved gait ability as evidenced by ambulation 150 feet with front wheeled walker independently with AD, in order to manuever throughout home , to be achieved by 11/30/21. LTG: Patient will demonstrate improved gait ability as evidenced by ambulation 150 feet with quad cane independently with AD, to return to safe household and community ambulation, in order to return to plf, to be achieved by 12/14/21. . PT Impaired gait No Manage Orthopedic Condition Description: Improve patient and/or caregiver understanding of post surgical and/or non-surgical orthopedic intervention management as evidenced by patient and/or caregiver able to verbalize, demonstrate, and teach back instruction, to be achieved by 12/14/21. . PT Orthopedic Condition No Demonstrate understanding of education Description: Patient and/or caregiver will understand educational instruction to be achieved by 12/14/21. . PT Learning Assessment No Interventions Intervention Associated Problem/Goal Status Variance Visit Notes Medication Education Description: Evaluate/instruct patient/caregiver on obtaining, storing, identifying and administering ordered medications as well as keeping accurate medication list in the home and adhereing to medication schedule Problem:Medication Education Goal:Patient/caregive r will demonstrate ability to obtain, store, identify and administer ordered medications, keep accurate medication list in home, and adhere to medication schedule Completed Patient instructed on importance of keeping accurate medication list in home and adhering to medication schedule. Risk of Sepsis Description: Patient is at risk for sepsis. Monitor closely for s/s of sepsis. Problem:Sepsis Goal:Patient/caregive r will be able to identify signs/symptoms of sepsis infection and will verbalize actions to take if suspected Completed SPO2 Description: Notify Dr. Ochoa if pulse ox is <92% at rest. Problem:Physician Specific Parameters Goal:Patient to maintain parameters within physician-specified ranges Completed Instruct on individual fall risk factors and strategies to prevent falls and injuries caused by falls. Problem:Risk for Falls Goal:Manage Risk for falls Completed PT: Patient and Caregiver instructed on Eliminating Environmental Hazards: Keep pathways clear Instruct on pain and instruct on strategies to control pain Problem:Pain Goal:Manage Pain Completed patient instructed on techniques to control pain including Pharmacological measures and Non-Pharmacological measures; positioning/elevation and use of thermal modalities, apply ice to affected area for the following prescribed frequency: several times/day. Monitor lower extremities for skin lesions and educate on proper foot care Problem:Diabetic Foot Care Goal:Manage diabetic foot care Completed patient instructed on diabetic foot care including wearing proper footwear/avoiding going barefoot. Instruct on ongoing discharge plan Problem:Discharge Goal:Manage discharge planning Completed Ongoing Discharge plan: Discharge plan discussed with patient including frequency and duration for home PT and plan for transition to: live independently at home without ongoing services. Physical Therapy Therapeutic Exercises Problem:PT Impaired muscle performance and/or ROM Goal:Improved Muscle Performance and/or ROM Completed patient instructed on strengthening exercises including ankle pumps, quad and glut sets, hip abd and adduction, saq and heel slides x's 10 each with verbal cues for slower pace and correct form. patient instructed to perform home exercise program twice a day which included above exercises. Physical Therapy Transfer Training Problem:PT Impaired mobility Goal:Improved Transfers Completed Transfer training and instruction to patient on safe transfers to and from chair with stand by assist and verbal cues for using lift chait to assist and maintain BJ precautions. Physical Therapy Gait Training Problem:PT Impaired gait Goal:Improved Gait Completed Gait training and instruction to patient on safe ambulation with front wheeled walker for 50 feet with stand by assist, with verbal cues for corrections of gait deviations including increased step length. Instruct on orthopedic precautions and weight bearing restrictions Description: Orthopedic precautions including left posterior hip: no hip flexion > 90 degrees, no adduction and no IR/ER rotation of involved extermity. Weight bearing restrictions include: WBAT of involved extremity. Problem:PT Orthopedic Condition Goal:Manage Orthopedic Condition Completed patient instructed on orthopedic precautions. Instruct on management of edema Problem:PT Orthopedic Condition Goal:Manage Orthopedic Condition Completed Instruct patient on management of edema including elevation of LLE above the level of the heart and ice. Instruct on self-management of post surgical and/or non-surgical orthopedic intervention Problem:PT Orthopedic Condition Goal:Manage Orthopedic Condition Completed patient instructed on staying well hydrated, signs and symptoms of infection, signs and symptoms of DVT/PE, instructed on when to call provider and instructed on when to call 911. Instruct and educate on knowledge deficits Problem:PT Learning Assessment Goal:Demonstrate understanding of education Completed patient verbalize and/or demonstrate understanding of physical therapy education including home exercise program. Education methods include: verbal cues. Further education required to improve knowledge and compliance with home exercise program. documented in this encounter [facility] home Plan of care note* Visit Details Visit Type -PT ROUTINE Discipline -Physical Therapy Problems Problem Description Start Date Status Goals Interve ntions Medication Education Disciplines: Skilled Services 11/13/2021 Active 1 goal linked to scheduled/document ed intervention 1 goal intervention scheduled/document ed in this visit Sepsis Disciplines: Skilled Services 11/13/2021 Active 1 goal linked to scheduled/document ed intervention 1 goal intervention scheduled/document ed in this visit Physician Specific Parameters Disciplines: Skilled Services 11/13/2021 Active 1 goal linked to scheduled/document ed intervention 1 goal intervention scheduled/document ed in this visit Risk for Falls Disciplines: Skilled Services 11/13/2021 Active 1 goal linked to scheduled/document ed intervention 1 goal intervention scheduled/document ed in this visit Pain Disciplines: Skilled Services 11/13/2021 Active 1 goal linked to scheduled/document ed intervention 1 goal intervention scheduled/document ed in this visit Diabetic Foot Care Disciplines: Skilled Services 11/13/2021 Active 1 goal linked to scheduled/document ed intervention 1 goal intervention scheduled/document ed in this visit PT Impaired muscle performance and/or ROM Disciplines: PT 11/13/2021 Active 1 goal linked to scheduled/document ed intervention 1 goal intervention scheduled/document ed in this visit PT Impaired mobility Disciplines: PT 11/13/2021 Active 2 goals linked to scheduled/document ed interventions 2 goal interventions scheduled/document ed in this visit PT Impaired gait Disciplines: PT 11/13/2021 Active 1 goal linked to scheduled/document ed intervention 1 goal intervention scheduled/document ed in this visit PT Orthopedic Condition Disciplines: PT 11/13/2021 Active 1 goal linked to scheduled/document ed intervention 4 goal interventions scheduled/document ed in this visit PT Learning Assessment Disciplines: PT 11/13/2021 Active 1 goal linked to scheduled/document ed intervention 1 goal intervention scheduled/document ed in this visit Goals Goal Associated Problem Outcome Goal Met? Visit Notes Patient/caregiver will demonstrate ability to obtain, store, identify and administer ordered medications, keep accurate medication list in home, and adhere to medication schedule Medication Education No Patient/caregiver will be able to identify signs/symptoms of sepsis infection and will verbalize actions to take if suspected Sepsis No Patient to maintain parameters within physician-specified ranges Physician Specific Parameters No Manage Risk for falls Description: Patient/caregiver will verbalize knowledge of individualized fall prevention strategies by 12/14/21. . Risk for Falls No Manage Pain Description: Patient/caregiver will verbalize knowledge and understanding of appropriate techniques to control pain, including pain medication and non-pharmacological techniques. Patient will verbalize or demonstrate an acceptable level of pain as evidenced by a pain score of <5/10 and improvement in ability to perform activities of daily living to be achieved by 12/14/21. . Pain No Manage diabetic foot care Description: Patient/caregiver will demonstrate basic understanding of and compliance with diabetic self-care management as evidenced by verbalizing purpose of daily foot care and assessment by 12/14/21. Diabetic Foot Care No Improved Muscle Performance and/or ROM Description: LTG: Patient will demonstrate improved muscle performance to meet functional goals as evidenced by ability to tolerate 10 min of standing activity, to be achieved by 12/14/21. . STG: Patient and/or caregiver will verbalize/demonstrate independence with home exercise program, to improve functional mobility, to be achieved by 11/23/21. PT Impaired muscle performance and/or ROM No Improved Transfers Description: LTG: Patient will demonstrate safe transfers to/from bed, chair, toilet, shower/tub and car independently with AD, to be achieved by 12/14/21. . PT Impaired mobility No Improved Bed Mobility Description: STG: Patient will demonstrate improved bed mobility, ability to position self and supine <> sit independently to be achieved by 11/30/21. PT Impaired mobility No Improved Gait Description: STG: Patient will demonstrate improved gait ability as evidenced by ambulation 150 feet with front wheeled walker independently with AD, in order to manuever throughout home , to be achieved by 11/30/21. LTG: Patient will demonstrate improved gait ability as evidenced by ambulation 150 feet with quad cane independently with AD, to return to safe household and community ambulation, in order to return to [facility], to be achieved by 12/14/21. . PT Impaired gait No Manage Orthopedic Condition Description: Improve patient and/or caregiver understanding of post surgical and/or non-surgical orthopedic intervention management as evidenced by patient and/or caregiver able to verbalize, demonstrate, and teach back instruction, to be achieved by 12/14/21. . PT Orthopedic Condition No Demonstrate understanding of education Description: Patient and/or caregiver will understand educational instruction to be achieved by 12/14/21. . PT Learning Assessment No Interventions Intervention Associated Problem/Goal Status Variance Visit Notes Medication Education Description: Evaluate/instruct patient/caregiver on obtaining, storing, identifying and administering ordered medications as well as keeping accurate medication list in the home and adhereing to medication schedule Problem:Medication Education Goal:Patient/caregive r will demonstrate ability to obtain, store, identify and administer ordered medications, keep accurate medication list in home, and adhere to medication schedule Completed Patient instructed on importance of keeping accurate medication list in home. Risk of Sepsis Description: Patient is at risk for sepsis. Monitor closely for s/s of sepsis. Problem:Sepsis Goal:Patient/caregive r will be able to identify signs/symptoms of sepsis infection and will verbalize actions to take if suspected Completed SPO2 Description: Notify Dr. Ochoa if pulse ox is <92% at rest. Problem:Physician Specific Parameters Goal:Patient to maintain parameters within physician-specified ranges Completed Instruct on individual fall risk factors and strategies to prevent falls and injuries caused by falls. Problem:Risk for Falls Goal:Manage Risk for falls Completed PT: Patient instructed on Eliminating Environmental Hazards: Keep pathways clear, Move furniture from pathways and Wear supportive shoes or non-skid socks Managing Impaired Functional Mobility: Use assistive device(s): Walker Managing Pain Instruct on pain and instruct on strategies to control pain Problem:Pain Goal:Manage Pain Completed patient instructed on techniques to control pain including Pharmacological measures and Non-Pharmacological measures; rest, positioning/elevation and use of thermal modalities, apply ice to affected area . Monitor lower extremities for skin lesions and educate on proper foot care Problem:Diabetic Foot Care Goal:Manage diabetic foot care Completed patient instructed on diabetic foot care including daily skin inspection. Physical Therapy Therapeutic Exercises Problem:PT Impaired muscle performance and/or ROM Goal:Improved Muscle Performance and/or ROM Completed patient instructed on strengthening exercises including Supine : GS,QS,HS, HIPADD, HIP BD, HEEL SLIDES, SAQ, X 10 with verbal cues for technique . patient instructed to perform home exercise program twice a day which included hourly ambulation . Physical Therapy Transfer Training Problem:PT Impaired mobility Goal:Improved Transfers Completed Transfer training and instruction to patient on safe transfers to and from bed with stand by assist and verbal and tactile cues for technique . Training on the following adaptive equipment/durable medical equipment: grab bar(s). Physical Therapy Bed Mobility Training Problem:PT Impaired mobility Goal:Improved Bed Mobility Completed Bed mobility training and instruction to patient, including rolling, supine<>sit and bridging with stand by assist and verbal and tactile cues for technique . Recommended the following adaptive equipment/durable medical equipment: bed rails. Physical Therapy Gait Training Problem:PT Impaired gait Goal:Improved Gait Completed Gait training and instruction to patient on safe ambulation with front wheeled walker for 40' x 2 feet with stand by assist and maximum assist, with verbal, tactile, visual and written cues for corrections of gait deviations including increasing stride length, passing th eopposite foot, utilizing the walker to balance himself to allow a larger wt shift to take that stride . Instruct on orthopedic precautions and weight bearing restrictions Description: Orthopedic precautions including left posterior hip: no hip flexion > 90 degrees, no adduction and no IR/ER rotation of involved extermity. Weight bearing restrictions include: WBAT of involved extremity. Problem:PT Orthopedic Condition Goal:Manage Orthopedic Condition Completed patient instructed on orthopedic precautions and weight bearing restrictions. Instruct on management of edema Problem:PT Orthopedic Condition Goal:Manage Orthopedic Condition Completed Instruct patient on management of edema including elevation of LLE above the level of the heart and ice. Physical therapy to perform surgical incision/wound management Description: Removal of post-op dressing on 11/18/21. If no drainage is present, leave open to air; if drainage is present, cover with clean dressing and contact provider. Problem:PT Orthopedic Condition Goal:Manage Orthopedic Condition Completed Intervention completed this date. Instruct on self-management of post surgical and/or non-surgical orthopedic intervention Problem:PT Orthopedic Condition Goal:Manage Orthopedic Condition Completed patient instructed on managagement of orthopedic condition, incision care: clean,dry.open to air , signs and symptoms of infection, signs and symptoms of DVT/PE, instructed on when to call provider and instructed on when to call 911. Instruct and educate on knowledge deficits Problem:PT Learning Assessment Goal:Demonstrate understanding of education Completed patient verbalize and/or demonstrate understanding of physical therapy education including home exercise program, orthopedic condition management, surgical precautions and pain management. Education methods include: verbal cues. Further education required to improve knowledge and compliance with home exercise program, orthopedic condition management, surgical precautions and pain management. documented in this encounter [facility]'s home Plan of care note* Visit Details Visit Type -AIR PRESS OPERATOR ROUTINE Discipline -Physical Therapy Problems Problem Description Start Date Status Goals Interve ntions Sepsis Disciplines: Skilled Services 11/13/2021 Active 1 goal linked to scheduled/document ed intervention 1 goal intervention scheduled/document ed in this visit Physician Specific Parameters Disciplines: Skilled Services 11/13/2021 Active 1 goal linked to scheduled/document ed intervention 1 goal intervention scheduled/document ed in this visit Risk for Falls Disciplines: Skilled Services 11/13/2021 Active 1 goal linked to scheduled/document ed intervention 1 goal intervention scheduled/document ed in this visit Pain Disciplines: Skilled Services 11/13/2021 Active 1 goal linked to scheduled/document ed intervention 1 goal intervention scheduled/document ed in this visit Diabetic Foot Care Disciplines: Skilled Services 11/13/2021 Active 1 goal linked to scheduled/document ed intervention 1 goal intervention scheduled/document ed in this visit Discharge Disciplines: Skilled Services 11/13/2021 Active 1 goal linked to scheduled/document ed intervention 1 goal intervention scheduled/document ed in this visit PT Impaired muscle performance and/or ROM Disciplines: PT 11/13/2021 Active 1 goal linked to scheduled/document ed intervention 1 goal intervention scheduled/document ed in this visit PT Impaired mobility Disciplines: PT 11/13/2021 Active 1 goal linked to scheduled/document ed intervention 1 goal intervention scheduled/document ed in this visit PT Impaired gait Disciplines: PT 11/13/2021 Active 2 goals linked to scheduled/document ed interventions 2 goal interventions scheduled/document ed in this visit PT Impaired balance Disciplines: PT 11/13/2021 Active 1 goal linked to scheduled/document ed intervention 1 goal intervention scheduled/document ed in this visit PT Orthopedic Condition Disciplines: PT 11/13/2021 Active 1 goal linked to scheduled/document ed intervention 3 goal interventions scheduled/document ed in this visit PT Learning Assessment Disciplines: PT 11/13/2021 Active 1 goal linked to scheduled/document ed intervention 1 goal intervention scheduled/document ed in this visit Goals Goal Associated Problem Outcome Goal Met? Visit Notes Patient/caregiver will be able to identify signs/symptoms of sepsis infection and will verbalize actions to take if suspected Sepsis No Patient to maintain parameters within physician-specified ranges Physician Specific Parameters No Manage Risk for falls Description: Patient/caregiver will verbalize knowledge of individualized fall prevention strategies by 12/14/21. . Risk for Falls No Manage Pain Description: Patient/caregiver will verbalize knowledge and understanding of appropriate techniques to control pain, including pain medication and non-pharmacological techniques. Patient will verbalize or demonstrate an acceptable level of pain as evidenced by a pain score of <5/10 and improvement in ability to perform activities of daily living to be achieved by 12/14/21. . Pain No Manage diabetic foot care Description: Patient/caregiver will demonstrate basic understanding of and compliance with diabetic self-care management as evidenced by verbalizing purpose of daily foot care and assessment by 12/14/21. Diabetic Foot Care No Manage discharge planning Description: Patient/caregiver will verbalize understanding of ongoing discharge plan provided related to disease management, arrangements for outpatient and/or community services, obtaining medications, supplies, and DME, as needed. Discharge No Improved Muscle Performance and/or ROM Description: LTG: Patient will demonstrate improved muscle performance to meet functional goals as evidenced by ability to tolerate 10 min of standing activity, to be achieved by 12/14/21. . STG: Patient and/or caregiver will verbalize/demonstrate independence with home exercise program, to improve functional mobility, to be achieved by 11/23/21. PT Impaired muscle performance and/or ROM No Improved Transfers Description: LTG: Patient will demonstrate safe transfers to/from bed, chair, toilet, shower/tub and car independently with AD, to be achieved by 12/14/21. . PT Impaired mobility No Improved Stair Climbing Description: LTG: Patient will demonstrate improved stair negotiation as evidenced by ascend/descend 3 steps without railing independently, to safely access community and exit home, to be achieved by 12/14/21. . PT Impaired gait No Improved Gait Description: STG: Patient will demonstrate improved gait ability as evidenced by ambulation 150 feet with front wheeled walker independently with AD, in order to manuever throughout home , to be achieved by 11/30/21. LTG: Patient will demonstrate improved gait ability as evidenced by ambulation 150 feet with quad cane independently with AD, to return to safe household and community ambulation, in order to return to [facility], to be achieved by 12/14/21. . PT Impaired gait No Improved Balance Description: LTG: Patient will demonstrate improved standing balance to meet functional goals as evidenced by TUG score of <1min to be achieved by 12/14/21. . PT Impaired balance No Manage Orthopedic Condition Description: Improve patient and/or caregiver understanding of post surgical and/or non-surgical orthopedic intervention management as evidenced by patient and/or caregiver able to verbalize, demonstrate, and teach back instruction, to be achieved by 12/14/21. . PT Orthopedic Condition No Demonstrate understanding of education Description: Patient and/or caregiver will understand educational instruction to be achieved by 12/14/21. . PT Learning Assessment No Interventions Intervention Associated Problem/Goal Status Variance Visit Notes Risk of Sepsis Description: Patient is at risk for sepsis. Monitor closely for s/s of sepsis. Problem:Sepsis Goal:Patient/caregive r will be able to identify signs/symptoms of sepsis infection and will verbalize actions to take if suspected Completed SPO2 Description: Notify Dr. Ochoa if pulse ox is <92% at rest. Problem:Physician Specific Parameters Goal:Patient to maintain parameters within physician-specified ranges Completed Instruct on individual fall risk factors and strategies to prevent falls and injuries caused by falls. Problem:Risk for Falls Goal:Manage Risk for falls Completed PT: Patient instructed on Eliminating Environmental Hazards: Keep pathways clear Managing Impaired Functional Mobility: Use assistive device(s): Walker Instruct on pain and instruct on strategies to control pain Problem:Pain Goal:Manage Pain Completed patient instructed on techniques to control pain including Pharmacological measures and Non-Pharmacological measures; use of thermal modalities, apply ice to affected area for the following prescribed frequency: several times/day. Monitor lower extremities for skin lesions and educate on proper foot care Problem:Diabetic Foot Care Goal:Manage diabetic foot care Completed patient instructed on diabetic foot care including wearing proper footwear/avoiding going barefoot. Instruct on ongoing discharge plan Problem:Discharge Goal:Manage discharge planning Completed Ongoing Discharge plan: Discharge plan discussed with patient including frequency and duration for home PT and plan for transition to: live independently at home without ongoing services. Physical Therapy Therapeutic Exercises Problem:PT Impaired muscle performance and/or ROM Goal:Improved Muscle Performance and/or ROM Completed patient instructed on strengthening exercises including ankle pumps, quad and glut sets, hip abduction and adduction, saq and heel slides x's 15 each. standing calf raises and hamstring curls x's 10 each with verbal, visual and written cues for correct form and pace. patient instructed to perform home exercise program twice a day which included standing exercises. Physical Therapy Transfer Training Problem:PT Impaired mobility Goal:Improved Transfers Completed Transfer training and instruction to patient on safe transfers to and from chair with supervision and verbal cues for safety. Physical Therapy Stair Training Problem:PT Impaired gait Goal:Improved Stair Climbing Completed Stair training and instruction to patient on safe stair climbing, ascend/descend 3 steps, with railing with stand by assist and verbal cues for correct step pattern and technique. 3steps with 1 rail and quad cane w/ SBA for safety. Physical Therapy Gait Training Problem:PT Impaired gait Goal:Improved Gait Completed Gait training and instruction to patient on safe ambulation with front wheeled walker for x's 30 x's 60 and 80 feet with stand by assist, with verbal cues for corrections of gait deviations including incresing step length and height to avoid shuffle . Physical Therapy Balance Training Problem:PT Impaired balance Goal:Improved Balance Completed Developed, implemented, and instructed patient on standing balance exercises including standing exercises fro strength and balance. Instruct on orthopedic precautions and weight bearing restrictions Description: Orthopedic precautions including left posterior hip: no hip flexion > 90 degrees, no adduction and no IR/ER rotation of involved extermity. Weight bearing restrictions include: WBAT of involved extremity. Problem:PT Orthopedic Condition Goal:Manage Orthopedic Condition Completed patient instructed on orthopedic precautions and weight bearing restrictions. WBAT Instruct on management of edema Problem:PT Orthopedic Condition Goal:Manage Orthopedic Condition Completed Instruct patient on management of edema including ice. Instruct on self-management of post surgical and/or non-surgical orthopedic intervention Problem:PT Orthopedic Condition Goal:Manage Orthopedic Condition Completed patient instructed on managagement of orthopedic condition, signs and symptoms of infection, signs and symptoms of DVT/PE, instructed on when to call provider and instructed on when to call 911. Instruct and educate on knowledge deficits Problem:PT Learning Assessment Goal:Demonstrate understanding of education Completed patient verbalize and/or demonstrate understanding of physical therapy education including home exercise program and surgical precautions. Education methods include: verbal cues, written instructions and visual cues. Further education required to improve knowledge and compliance with home exercise program and surgical precautions. documented in this encounter [facility]'s home Plan of care note* Visit Details Visit Type -AIR PRESS OPERATOR ROUTINE Discipline -Physical Therapy Problems Problem Description Start Date Status Goals Interve ntions Medication Education Disciplines: Skilled Services 11/13/2021 Active 1 goal linked to scheduled/document ed intervention 1 goal intervention scheduled/document ed in this visit Sepsis Disciplines: Skilled Services 11/13/2021 Active 1 goal linked to scheduled/document ed intervention 1 goal intervention scheduled/document ed in this visit Physician Specific Parameters Disciplines: Skilled Services 11/13/2021 Active 1 goal linked to scheduled/document ed intervention 1 goal intervention scheduled/document ed in this visit Risk for Falls Disciplines: Skilled Services 11/13/2021 Active 1 goal linked to scheduled/document ed intervention 1 goal intervention scheduled/document ed in this visit Pain Disciplines: Skilled Services 11/13/2021 Active 1 goal linked to scheduled/document ed intervention 1 goal intervention scheduled/document ed in this visit Diabetic Foot Care Disciplines: Skilled Services 11/13/2021 Active 1 goal linked to scheduled/document ed intervention 1 goal intervention scheduled/document ed in this visit High Risk Medications Disciplines: Skilled Services 11/13/2021 Active 1 goal linked to scheduled/document ed intervention 1 goal intervention scheduled/document ed in this visit PT Impaired muscle performance and/or ROM Disciplines: PT 11/13/2021 Active 1 goal linked to scheduled/document ed intervention 1 goal intervention scheduled/document ed in this visit PT Impaired mobility Disciplines: PT 11/13/2021 Active 1 goal linked to scheduled/document ed intervention 1 goal intervention scheduled/document ed in this visit PT Impaired gait Disciplines: PT 11/13/2021 Active 2 goals linked to scheduled/document ed interventions 2 goal interventions scheduled/document ed in this visit PT Impaired balance Disciplines: PT 11/13/2021 Active 1 goal linked to scheduled/document ed intervention 1 goal intervention scheduled/document ed in this visit PT Orthopedic Condition Disciplines: PT 11/13/2021 Active 1 goal linked to scheduled/document ed intervention 2 goal interventions scheduled/document ed in this visit PT Learning Assessment Disciplines: PT 11/13/2021 Active 1 goal linked to scheduled/document ed intervention 1 goal intervention scheduled/document ed in this visit Goals Goal Associated Problem Outcome Goal Met? Visit Notes Patient/caregiver will demonstrate ability to obtain, store, identify and administer ordered medications, keep accurate medication list in home, and adhere to medication schedule Medication Education No Patient/caregiver will be able to identify signs/symptoms of sepsis infection and will verbalize actions to take if suspected Sepsis No Patient to maintain parameters within physician-specified ranges Physician Specific Parameters No Manage Risk for falls Description: Patient/caregiver will verbalize knowledge of individualized fall prevention strategies by 12/14/21. . Risk for Falls No Manage Pain Description: Patient/caregiver will verbalize knowledge and understanding of appropriate techniques to control pain, including pain medication and non-pharmacological techniques. Patient will verbalize or demonstrate an acceptable level of pain as evidenced by a pain score of <5/10 and improvement in ability to perform activities of daily living to be achieved by 12/14/21. . Pain No Manage diabetic foot care Description: Patient/caregiver will demonstrate basic understanding of and compliance with diabetic self-care management as evidenced by verbalizing purpose of daily foot care and assessment by 12/14/21. Diabetic Foot Care No Patient/caregiver will teach back high risk medication side effect and precaution education High Risk Medications No Improved Muscle Performance and/or ROM Description: LTG: Patient will demonstrate improved muscle performance to meet functional goals as evidenced by ability to tolerate 10 min of standing activity, to be achieved by 12/14/21. . STG: Patient and/or caregiver will verbalize/demonstrate independence with home exercise program, to improve functional mobility, to be achieved by 11/23/21. PT Impaired muscle performance and/or ROM No Improved Transfers Description: LTG: Patient will demonstrate safe transfers to/from bed, chair, toilet, shower/tub and car independently with AD, to be achieved by 12/14/21. . PT Impaired mobility No Improved Stair Climbing Description: LTG: Patient will demonstrate improved stair negotiation as evidenced by ascend/descend 3 steps without railing independently, to safely access community and exit home, to be achieved by 12/14/21. . PT Impaired gait No Improved Gait Description: STG: Patient will demonstrate improved gait ability as evidenced by ambulation 150 feet with front wheeled walker independently with AD, in order to manuever throughout home , to be achieved by 11/30/21. LTG: Patient will demonstrate improved gait ability as evidenced by ambulation 150 feet with quad cane independently with AD, to return to safe household and community ambulation, in order to return to plf, to be achieved by 12/14/21. . PT Impaired gait No Improved Balance Description: LTG: Patient will demonstrate improved standing balance to meet functional goals as evidenced by TUG score of <1min to be achieved by 12/14/21. . PT Impaired balance No Manage Orthopedic Condition Description: Improve patient and/or caregiver understanding of post surgical and/or non-surgical orthopedic intervention management as evidenced by patient and/or caregiver able to verbalize, demonstrate, and teach back instruction, to be achieved by 12/14/21. . PT Orthopedic Condition No Demonstrate understanding of education Description: Patient and/or caregiver will understand educational instruction to be achieved by 12/14/21. . PT Learning Assessment No Interventions Intervention Associated Problem/Goal Status Variance Visit Notes Medication Education Description: Evaluate/instruct patient/caregiver on obtaining, storing, identifying and administering ordered medications as well as keeping accurate medication list in the home and adhereing to medication schedule Problem:Medication Education Goal:Patient/caregive r will demonstrate ability to obtain, store, identify and administer ordered medications, keep accurate medication list in home, and adhere to medication schedule Completed Patient instructed on importance of keeping accurate medication list in home and adhering to medication schedule. Risk of Sepsis Description: Patient is at risk for sepsis. Monitor closely for s/s of sepsis. Problem:Sepsis Goal:Patient/caregive r will be able to identify signs/symptoms of sepsis infection and will verbalize actions to take if suspected Completed SPO2 Description: Notify Dr. Ochoa if pulse ox is <92% at rest. Problem:Physician Specific Parameters Goal:Patient to maintain parameters within physician-specified ranges Completed Instruct on individual fall risk factors and strategies to prevent falls and injuries caused by falls. Problem:Risk for Falls Goal:Manage Risk for falls Completed PT: Patient instructed on Managing Impaired Functional Mobility: Use assistive device(s): Walker and Cane Instruct on pain and instruct on strategies to control pain Problem:Pain Goal:Manage Pain Completed patient instructed on techniques to control pain including Pharmacological measures and Non-Pharmacological measures; use of thermal modalities, apply ice to affected area for the following prescribed frequency: several times/day. Monitor lower extremities for skin lesions and educate on proper foot care Problem:Diabetic Foot Care Goal:Manage diabetic foot care Completed patient instructed on diabetic foot care including wearing proper footwear/avoiding going barefoot. Opioids- Instruct on high risk medication Problem:High Risk Medications Goal:Patient/caregive r will teach back high risk medication side effect and precaution education Completed patient instructed on the following: Possible side effects of opioid medication including sedation, decreased rate of breathing, and constipation. Instructed on reporting over sedation to prescribing physician, practice deep breathing techniques every hour while awake, and prevention of constipation by increasing water and fiber intake, increase activity as tolerated, and use stool softener as prescribed. Only take opioids as prescribed, do not share your medications, and take proper precautions in storing and properly disposing of opioids once no longer needed. Follow providers guidelines for driving and weaning from prescribed opioid. Physical Therapy Therapeutic Exercises Problem:PT Impaired muscle performance and/or ROM Goal:Improved Muscle Performance and/or ROM Completed patient instructed on strengthening exercises including standing bilateral calf raises, hamstring curls and hip [id number] x's 20 each. supine quad sets and glut sets x's 20 each with verbal and visual cues for correct pace. patient instructed to perform home exercise program twice a day which included linda standing exercises . Physical Therapy Transfer Training Problem:PT Impaired mobility Goal:Improved Transfers Completed Transfer training and instruction to patient on safe transfers to and from chair with supervision and verbal cues for pushing up from chair. Physical Therapy Stair Training Problem:PT Impaired gait Goal:Improved Stair Climbing Completed Stair training and instruction to patient on safe stair climbing, ascend/descend 3 steps, with railing and with quad cane with stand by assist and verbal cues for correct step pattern. Physical Therapy Gait Training Problem:PT Impaired gait Goal:Improved Gait Completed Gait training and instruction to patient on safe ambulation with quad cane for x's x's 80 and x's 100 feet with stand by assist, with verbal cues for corrections of gait deviations including increased step length and correct placement of cane for safety. Physical Therapy Balance Training Problem:PT Impaired balance Goal:Improved Balance Completed Developed, implemented, and instructed patient on standing balance exercises including linda standing exercises and cane training. Instruct on orthopedic precautions and weight bearing restrictions Description: Orthopedic precautions including left posterior hip: no hip flexion > 90 degrees, no adduction and no IR/ER rotation of involved extermity. Weight bearing restrictions include: WBAT of involved extremity. Problem:PT Orthopedic Condition Goal:Manage Orthopedic Condition Completed patient instructed on orthopedic precautions. Instruct on management of edema Problem:PT Orthopedic Condition Goal:Manage Orthopedic Condition Completed Instruct patient on management of edema including ice. Instruct and educate on knowledge deficits Problem:PT Learning Assessment Goal:Demonstrate understanding of education Completed patient verbalize and/or demonstrate understanding of physical therapy education including home exercise program. Education methods include: verbal cues, written instructions and visual cues. Further education required to improve knowledge and compliance with home exercise program. documented in this encounter [facility] home Plan of care note* Visit Details Visit Type -OT ROUTINE Discipline -Occupational Therapy Problems Problem Description Start Date Status Goals Interve ntions Sepsis Disciplines: Skilled Services 11/13/2021 Active 1 goal linked to scheduled/documen orestes intervention 1 goal intervention scheduled/document ed in this visit Physician Specific Parameters Disciplines: Skilled Services 11/13/2021 Active 1 goal linked to scheduled/documen orestes intervention 1 goal intervention scheduled/document ed in this visit Risk for Falls Disciplines: Skilled Services 11/13/2021 Active 1 goal linked to scheduled/documen orestes intervention 1 goal intervention scheduled/document ed in this visit Pain Disciplines: Skilled Services 11/13/2021 Active 1 goal linked to scheduled/documen orestes intervention 1 goal intervention scheduled/document ed in this visit Diabetic Foot Care Disciplines: Skilled Services 11/13/2021 Active 1 goal linked to scheduled/documen orestes intervention 1 goal intervention scheduled/document ed in this visit Discharge Disciplines: Skilled Services 11/13/2021 Active 1 goal linked to scheduled/documen orestes intervention 1 goal intervention scheduled/document ed in this visit OT Learning Assessment Disciplines: OT 11/19/2021 Resolved on 11/20/2021 1 goal linked to scheduled/documen orestes intervention 1 goal intervention scheduled/document ed in this visit OT ADLs/IADLs Disciplines: OT 11/19/2021 Resolved on 11/20/2021 1 goal linked to scheduled/documen orestes intervention 1 goal intervention scheduled/document ed in this visit OT Functional Transfers Disciplines: OT 11/19/2021 Resolved on 11/20/2021 1 goal linked to scheduled/documen orestes intervention 1 goal intervention scheduled/document ed in this visit Goals Goal Associated Problem Outcome Goal Met? Visit Notes Patient/caregiver will be able to identify signs/symptoms of sepsis infection and will verbalize actions to take if suspected Sepsis No Patient to maintain parameters within physician-specified ranges Physician Specific Parameters No Manage Risk for falls Description: Patient/caregiver will verbalize knowledge of individualized fall prevention strategies by 12/14/21. . Risk for Falls No Manage Pain Description: Patient/caregiver will verbalize knowledge and understanding of appropriate techniques to control pain, including pain medication and non-pharmacological techniques. Patient will verbalize or demonstrate an acceptable level of pain as evidenced by a pain score of <5/10 and improvement in ability to perform activities of daily living to be achieved by 12/14/21. . Pain No Manage diabetic foot care Description: Patient/caregiver will demonstrate basic understanding of and compliance with diabetic self-care management as evidenced by verbalizing purpose of daily foot care and assessment by 12/14/21. Diabetic Foot Care No Manage discharge planning Description: Patient/caregiver will verbalize understanding of ongoing discharge plan provided related to disease management, arrangements for outpatient and/or community services, obtaining medications, supplies, and DME, as needed. Discharge No Demonstrate understanding of education Description: Patient and/or caregiver will understand educational instruction to be achieved by 11/23/21. OT Learning Assessment Completed Yes met Improved ADLs/IADLs performance Description: patient will verbalize understanding of instructions and demonstrate improved performance of upper body dressing, lower body dressing and bathing to supervision or setup and stand by assistance as evidenced by improved [place] ADL Index score to at least 85 to be achieved by 11/23/21. OT ADLs/IADLs Completed Yes Met Improved Functional Transfers Description: patient will demonstrate safe transfers to/from shower/tub with supervision assistance and no verbal cues with use of DME to be achieved by 11/23/21. OT Functional Transfers Completed Yes Met Interventions Intervention Associated Problem/Goal Status Variance Visit Notes Risk of Sepsis Description: Patient is at risk for sepsis. Monitor closely for s/s of sepsis. Problem:Sepsis Goal:Patient/caregiver will be able to identify signs/symptoms of sepsis infection and will verbalize actions to take if suspected Completed SPO2 Description: Notify Dr. Ochoa if pulse ox is <92% at rest. Problem:Physician Specific Parameters Goal:Patient to maintain parameters within physician-specified ranges Completed Instruct on individual fall risk factors and strategies to prevent falls and injuries caused by falls. Problem:Risk for Falls Goal:Manage Risk for falls Completed OT: Patient and Caregiver instructed on Managing Impaired Functional Mobility: Use assistive device(s): Tub Bench and Caregiver to provide assist with: Steps, shower Transfers and ADL/IADLs Instruct on pain and instruct on strategies to control pain Problem:Pain Goal:Manage Pain Completed patient instructed on techniques to control pain including Non-Pharmacological measures; rest and use of DME/assistive devices. Monitor lower extremities for skin lesions and educate on proper foot care Problem:Diabetic Foot Care Goal:Manage diabetic foot care Completed patient and caregiver instructed on diabetic foot care including daily skin inspection, wearing proper footwear/avoiding going barefoot and wash/dry feet thoroughly. Instruct on final discharge plan and deliver discharge instructions Problem:Discharge Goal:Manage discharge planning Completed Delivered Discharge plan: Discharge plan discussed with patient for plan for transition to: caregiver assistance and continued home PT Instruct and educate on knowledge deficits Problem:OT Learning Assessment Goal:Demonstrate understanding of education Completed Education methods include: verbal cues, written instructions and teach back. Patient/Caregiver require further education to improve knowledge and compliance with fall prevention strategies, pain management, post surgical precautions, functional adl/iadl activity, functional transfers and discharge planning. ADL/IADLs Training Problem:OT ADLs/IADLs Goal:Improved ADLs/IADLs performance Completed Instruct patient on compensatory strategies, adaptive equipment/DME use, safety and falls prevention and maintaining hip precautions and bus repair supervisor, shoe horn and handheld shower use to facilite improved performance of upper body dressing, lower body dressing and bathing with supervision or setup assistance and verbal cues. Pt completed shower and dressing with stand by assist from to occasionally grab something, but pt was able to complete actual bathing and dressing without assist using AE. Recommend pt completes shower when is home and nearby to assist as needed. Pt also educated in use of front of walker to transport clothes if needed. Transfer Training Problem:OT Functional Transfers Goal:Improved Functional Transfers Completed Instruct patient on safe transfers and proper techniques including walker placment and use of extended tub bench, placement of shower curtain to perform to and from shower/tub with supervision assistance without cues. education and on the following adaptive equipment/durable medical equipment:tub transfer bench. [facility] Visit Details Visit Type -AIR PRESS OPERATOR ROUTINE Discipline -Physical Therapy Problems Problem Description Start Date Status Goals Interve ntions Sepsis Disciplines: Skilled Services 11/13/2021 Active 1 goal linked to scheduled/document ed intervention 1 goal intervention scheduled/document ed in this visit Physician Specific Parameters Disciplines: Skilled Services 11/13/2021 Active 1 goal linked to scheduled/document ed intervention 1 goal intervention scheduled/document ed in this visit Risk for Falls Disciplines: Skilled Services 11/13/2021 Active 1 goal linked to scheduled/document ed intervention 1 goal intervention scheduled/document ed in this visit Pain Disciplines: Skilled Services 11/13/2021 Active 1 goal linked to scheduled/document ed intervention 1 goal intervention scheduled/document ed in this visit Diabetic Foot Care Disciplines: Skilled Services 11/13/2021 Active 1 goal linked to scheduled/document ed intervention 1 goal intervention scheduled/document ed in this visit Discharge Disciplines: Skilled Services 11/13/2021 Active 1 goal linked to scheduled/document ed intervention 1 goal intervention scheduled/document ed in this visit PT Impaired muscle performance and/or ROM Disciplines: PT 11/13/2021 Active 1 goal linked to scheduled/document ed intervention 1 goal intervention scheduled/document ed in this visit PT Impaired gait Disciplines: PT 11/13/2021 Active 2 goals linked to scheduled/document ed interventions 2 goal interventions scheduled/document ed in this visit PT Impaired balance Disciplines: PT 11/13/2021 Active 1 goal linked to scheduled/document ed intervention 1 goal intervention scheduled/document ed in this visit PT Orthopedic Condition Disciplines: PT 11/13/2021 Active 1 goal linked to scheduled/document ed intervention 3 goal interventions scheduled/document ed in this visit PT Learning Assessment Disciplines: PT 11/13/2021 Active 1 goal linked to scheduled/document ed intervention 1 goal intervention scheduled/document ed in this visit Goals Goal Associated Problem Outcome Goal Met? Visit Notes Patient/caregiver will be able to identify signs/symptoms of sepsis infection and will verbalize actions to take if suspected Sepsis No Patient to maintain parameters within physician-specified ranges Physician Specific Parameters No Manage Risk for falls Description: Patient/caregiver will verbalize knowledge of individualized fall prevention strategies by 12/14/21. . Risk for Falls No Manage Pain Description: Patient/caregiver will verbalize knowledge and understanding of appropriate techniques to control pain, including pain medication and non-pharmacological techniques. Patient will verbalize or demonstrate an acceptable level of pain as evidenced by a pain score of <5/10 and improvement in ability to perform activities of daily living to be achieved by 12/14/21. . Pain No Manage diabetic foot care Description: Patient/caregiver will demonstrate basic understanding of and compliance with diabetic self-care management as evidenced by verbalizing purpose of daily foot care and assessment by 12/14/21. Diabetic Foot Care No Manage discharge planning Description: Patient/caregiver will verbalize understanding of ongoing discharge plan provided related to disease management, arrangements for outpatient and/or community services, obtaining medications, supplies, and DME, as needed. Discharge No Improved Muscle Performance and/or ROM Description: LTG: Patient will demonstrate improved muscle performance to meet functional goals as evidenced by ability to tolerate 10 min of standing activity, to be achieved by 12/14/21. . STG: Patient and/or caregiver will verbalize/demonstrate independence with home exercise program, to improve functional mobility, to be achieved by 11/23/21. PT Impaired muscle performance and/or ROM No Improved Stair Climbing Description: LTG: Patient will demonstrate improved stair negotiation as evidenced by ascend/descend 3 steps without railing independently, to safely access community and exit home, to be achieved by 12/14/21. . PT Impaired gait No Improved Gait Description: STG: Patient will demonstrate improved gait ability as evidenced by ambulation 150 feet with front wheeled walker independently with AD, in order to manuever throughout home , to be achieved by 11/30/21. LTG: Patient will demonstrate improved gait ability as evidenced by ambulation 150 feet with quad cane independently with AD, to return to safe household and community ambulation, in order to return to plf, to be achieved by 12/14/21. . PT Impaired gait No Improved Balance Description: LTG: Patient will demonstrate improved standing balance to meet functional goals as evidenced by TUG score of <1min to be achieved by 12/14/21. . PT Impaired balance No Manage Orthopedic Condition Description: Improve patient and/or caregiver understanding of post surgical and/or non-surgical orthopedic intervention management as evidenced by patient and/or caregiver able to verbalize, demonstrate, and teach back instruction, to be achieved by 12/14/21. . PT Orthopedic Condition No Demonstrate understanding of education Description: Patient and/or caregiver will understand educational instruction to be achieved by 12/14/21. . PT Learning Assessment No Interventions Intervention Associated Problem/Goal Status Variance Visit Notes Risk of Sepsis Description: Patient is at risk for sepsis. Monitor closely for s/s of sepsis. Problem:Sepsis Goal:Patient/caregive r will be able to identify signs/symptoms of sepsis infection and will verbalize actions to take if suspected Completed SPO2 Description: Notify Dr. Ochoa if pulse ox is <92% at rest. Problem:Physician Specific Parameters Goal:Patient to maintain parameters within physician-specified ranges Completed Instruct on individual fall risk factors and strategies to prevent falls and injuries caused by falls. Problem:Risk for Falls Goal:Manage Risk for falls Completed PT: Patient instructed on Managing Impaired Functional Mobility: Use assistive device(s): Walker and Cane Instruct on pain and instruct on strategies to control pain Problem:Pain Goal:Manage Pain Completed patient instructed on techniques to control pain including Pharmacological measures and Non-Pharmacological measures; use of thermal modalities, apply ice to affected area for the following prescribed frequency: several times day. Monitor lower extremities for skin lesions and educate on proper foot care Problem:Diabetic Foot Care Goal:Manage diabetic foot care Completed patient instructed on diabetic foot care including wearing proper footwear/avoiding going barefoot. Instruct on ongoing discharge plan Problem:Discharge Goal:Manage discharge planning Completed Ongoing Discharge plan: Discharge plan discussed with patient including frequency and duration for home PT and plan for transition to: live independently at home without ongoing services. Physical Therapy Therapeutic Exercises Problem:PT Impaired muscle performance and/or ROM Goal:Improved Muscle Performance and/or ROM Completed patient instructed on strengthening exercises including linda standing:calf raises, hip abd and flexion, hamstring curland mini sit x's 15 each. seated: LAQ x's 15 with verbal and visual cues for correct form. patient instructed to perform home exercise program twice a day which included above exercises.correct form Physical Therapy Stair Training Problem:PT Impaired gait Goal:Improved Stair Climbing Completed Stair training and instruction to patient on safe stair climbing, ascend/descend 3 steps, with railing and with cane with supervision and verbal cues for safety. Physical Therapy Gait Training Problem:PT Impaired gait Goal:Improved Gait Completed Gait training and instruction to patient on safe ambulation with quad cane for x's 100 and 2x's 40 feet with stand by assist, with verbal cues for corrections of gait deviations including increased step length. Physical Therapy Balance Training Problem:PT Impaired balance Goal:Improved Balance Completed Developed, implemented, and instructed patient on standing balance exercises including linda standing exercises and cane training. Instruct on orthopedic precautions and weight bearing restrictions Description: Orthopedic precautions including left posterior hip: no hip flexion > 90 degrees, no adduction and no IR/ER rotation of involved extermity. Weight bearing restrictions include: WBAT of involved extremity. Problem:PT Orthopedic Condition Goal:Manage Orthopedic Condition Completed patient instructed on orthopedic precautions. Instruct on management of edema Problem:PT Orthopedic Condition Goal:Manage Orthopedic Condition Completed Instruct patient on management of edema including elevation of LLE above the level of the heart. Instruct on self-management of post surgical and/or non-surgical orthopedic intervention Problem:PT Orthopedic Condition Goal:Manage Orthopedic Condition Completed patient instructed on signs and symptoms of infection, signs and symptoms of DVT/PE, instructed on when to call provider and instructed on when to call 911. Instruct and educate on knowledge deficits Problem:PT Learning Assessment Goal:Demonstrate understanding of education Completed patient verbalize and/or demonstrate understanding of physical therapy education including home exercise program. Education methods include: verbal cues. Further education required to improve knowledge and compliance with home exercise program. [facility] Visit Details Visit Type -AIR PRESS OPERATOR ROUTINE Discipline -Physical Therapy Problems Problem Description Start Date Status Goals Interve ntions Medication Education Disciplines: Skilled Services 11/13/2021 Active 1 goal linked to scheduled/document ed intervention 1 goal intervention scheduled/document ed in this visit Sepsis Disciplines: Skilled Services 11/13/2021 Active 1 goal linked to scheduled/document ed intervention 1 goal intervention scheduled/document ed in this visit Physician Specific Parameters Disciplines: Skilled Services 11/13/2021 Active 1 goal linked to scheduled/document ed intervention 1 goal intervention scheduled/document ed in this visit Risk for Falls Disciplines: Skilled Services 11/13/2021 Active 1 goal linked to scheduled/document ed intervention 1 goal intervention scheduled/document ed in this visit Pain Disciplines: Skilled Services 11/13/2021 Active 1 goal linked to scheduled/document ed intervention 1 goal intervention scheduled/document ed in this visit Diabetic Foot Care Disciplines: Skilled Services 11/13/2021 Active 1 goal linked to scheduled/document ed intervention 1 goal intervention scheduled/document ed in this visit Discharge Disciplines: Skilled Services 11/13/2021 Active 1 goal linked to scheduled/document ed intervention 1 goal intervention scheduled/document ed in this visit PT Impaired muscle performance and/or ROM Disciplines: PT 11/13/2021 Active 1 goal linked to scheduled/document ed intervention 1 goal intervention scheduled/document ed in this visit PT Impaired gait Disciplines: PT 11/13/2021 Active 1 goal linked to scheduled/document ed intervention 1 goal intervention scheduled/document ed in this visit PT Orthopedic Condition Disciplines: PT 11/13/2021 Active 1 goal linked to scheduled/document ed intervention 3 goal interventions scheduled/document ed in this visit PT Learning Assessment Disciplines: PT 11/13/2021 Active 1 goal linked to scheduled/document ed intervention 1 goal intervention scheduled/document ed in this visit Goals Goal Associated Problem Outcome Goal Met? Visit Notes Patient/caregiver will demonstrate ability to obtain, store, identify and administer ordered medications, keep accurate medication list in home, and adhere to medication schedule Medication Education No Patient/caregiver will be able to identify signs/symptoms of sepsis infection and will verbalize actions to take if suspected Sepsis No Patient to maintain parameters within physician-specified ranges Physician Specific Parameters No Manage Risk for falls Description: Patient/caregiver will verbalize knowledge of individualized fall prevention strategies by 12/14/21. . Risk for Falls No Manage Pain Description: Patient/caregiver will verbalize knowledge and understanding of appropriate techniques to control pain, including pain medication and non-pharmacological techniques. Patient will verbalize or demonstrate an acceptable level of pain as evidenced by a pain score of <5/10 and improvement in ability to perform activities of daily living to be achieved by 12/14/21. . Pain No Manage diabetic foot care Description: Patient/caregiver will demonstrate basic understanding of and compliance with diabetic self-care management as evidenced by verbalizing purpose of daily foot care and assessment by 12/14/21. Diabetic Foot Care No Manage discharge planning Description: Patient/caregiver will verbalize understanding of ongoing discharge plan provided related to disease management, arrangements for outpatient and/or community services, obtaining medications, supplies, and DME, as needed. Discharge No Improved Muscle Performance and/or ROM Description: LTG: Patient will demonstrate improved muscle performance to meet functional goals as evidenced by ability to tolerate 10 min of standing activity, to be achieved by 12/14/21. . STG: Patient and/or caregiver will verbalize/demonstrate independence with home exercise program, to improve functional mobility, to be achieved by 11/23/21. PT Impaired muscle performance and/or ROM No Improved Gait Description: STG: Patient will demonstrate improved gait ability as evidenced by ambulation 150 feet with front wheeled walker independently with AD, in order to manuever throughout home , to be achieved by 11/30/21. LTG: Patient will demonstrate improved gait ability as evidenced by ambulation 150 feet with quad cane independently with AD, to return to safe household and community ambulation, in order to return to [facility], to be achieved by 12/14/21. . PT Impaired gait No Manage Orthopedic Condition Description: Improve patient and/or caregiver understanding of post surgical and/or non-surgical orthopedic intervention management as evidenced by patient and/or caregiver able to verbalize, demonstrate, and teach back instruction, to be achieved by 12/14/21. . PT Orthopedic Condition No Demonstrate understanding of education Description: Patient and/or caregiver will understand educational instruction to be achieved by 12/14/21. . PT Learning Assessment No Interventions Intervention Associated Problem/Goal Status Variance Visit Notes Medication Education Description: Evaluate/instruct patient/caregiver on obtaining, storing, identifying and administering ordered medications as well as keeping accurate medication list in the home and adhereing to medication schedule Problem:Medication Education Goal:Patient/caregive r will demonstrate ability to obtain, store, identify and administer ordered medications, keep accurate medication list in home, and adhere to medication schedule Completed Patient instructed on importance of keeping accurate medication list in home. Risk of Sepsis Description: Patient is at risk for sepsis. Monitor closely for s/s of sepsis. Problem:Sepsis Goal:Patient/caregive r will be able to identify signs/symptoms of sepsis infection and will verbalize actions to take if suspected Completed SPO2 Description: Notify Dr. Ochoa if pulse ox is <92% at rest. Problem:Physician Specific Parameters Goal:Patient to maintain parameters within physician-specified ranges Completed Instruct on individual fall risk factors and strategies to prevent falls and injuries caused by falls. Problem:Risk for Falls Goal:Manage Risk for falls Completed PT: Patient instructed on Eliminating Environmental Hazards: Keep pathways clear Instruct on pain and instruct on strategies to control pain Problem:Pain Goal:Manage Pain Completed patient instructed on techniques to control pain including Pharmacological measures and Non-Pharmacological measures; rest. Monitor lower extremities for skin lesions and educate on proper foot care Problem:Diabetic Foot Care Goal:Manage diabetic foot care Completed patient instructed on diabetic foot care including wearing proper footwear/avoiding going barefoot. Instruct on ongoing discharge plan Problem:Discharge Goal:Manage discharge planning Completed Ongoing Discharge plan: Discharge plan discussed with patient including frequency and duration for home PT and plan for transition to: live independently at home without ongoing services. Physical Therapy Therapeutic Exercises Problem:PT Impaired muscle performance and/or ROM Goal:Improved Muscle Performance and/or ROM Completed patient instructed on strengthening exercises including sseated: laq and yuly adduction, supine: ankle pumps, quad and glut sets, hip abduction and saq x's 10 each. seated: LAQ x's 15 with verbal and visual cues for correct form and pace. patient instructed to perform home exercise program twice a day which included above exercises. Physical Therapy Gait Training Problem:PT Impaired gait Goal:Improved Gait Completed Gait training and instruction to patient on safe ambulation with WW for 2x's 80 feet with stand by assist, with verbal cues for corrections of gait deviations including increased step length . Instruct on orthopedic precautions and weight bearing restrictions Description: Orthopedic precautions including left posterior hip: no hip flexion > 90 degrees, no adduction and no IR/ER rotation of involved extermity. Weight bearing restrictions include: WBAT of involved extremity. Problem:PT Orthopedic Condition Goal:Manage Orthopedic Condition Completed patient instructed on orthopedic precautions. Instruct on management of edema Problem:PT Orthopedic Condition Goal:Manage Orthopedic Condition Completed Instruct patient on management of edema including ice. Instruct on self-management of post surgical and/or non-surgical orthopedic intervention Problem:PT Orthopedic Condition Goal:Manage Orthopedic Condition Completed patient instructed on signs and symptoms of infection, signs and symptoms of DVT/PE, instructed on when to call provider and instructed on when to call 911. Instruct and educate on knowledge deficits Problem:PT Learning Assessment Goal:Demonstrate understanding of education Completed patient verbalize and/or demonstrate understanding of physical therapy education including home exercise program. Education methods include: verbal cues. Further education required to improve knowledge and compliance with home exercise program. [facility] Visit Details Visit Type -AIR PRESS OPERATOR ROUTINE Discipline -Physical Therapy Problems Problem Description Start Date Status Goals Interve ntions Medication Education Disciplines: Skilled Services 11/13/2021 Active 1 goal linked to scheduled/document ed intervention 1 goal intervention scheduled/document ed in this visit Sepsis Disciplines: Skilled Services 11/13/2021 Active 1 goal linked to scheduled/document ed intervention 1 goal intervention scheduled/document ed in this visit Physician Specific Parameters Disciplines: Skilled Services 11/13/2021 Active 1 goal linked to scheduled/document ed intervention 1 goal intervention scheduled/document ed in this visit Risk for Falls Disciplines: Skilled Services 11/13/2021 Active 1 goal linked to scheduled/document ed intervention 1 goal intervention scheduled/document ed in this visit Pain Disciplines: Skilled Services 11/13/2021 Active 1 goal linked to scheduled/document ed intervention 1 goal intervention scheduled/document ed in this visit Diabetic Foot Care Disciplines: Skilled Services 11/13/2021 Active 1 goal linked to scheduled/document ed intervention 1 goal intervention scheduled/document ed in this visit High Risk Medications Disciplines: Skilled Services 11/13/2021 Active 1 goal linked to scheduled/document ed intervention 1 goal intervention scheduled/document ed in this visit Discharge Disciplines: Skilled Services 11/13/2021 Active 1 goal linked to scheduled/document ed intervention 1 goal intervention scheduled/document ed in this visit PT Impaired muscle performance and/or ROM Disciplines: PT 11/13/2021 Active 1 goal linked to scheduled/document ed intervention 1 goal intervention scheduled/document ed in this visit PT Impaired gait Disciplines: PT 11/13/2021 Active 2 goals linked to scheduled/document ed interventions 2 goal interventions scheduled/document ed in this visit PT Impaired balance Disciplines: PT 11/13/2021 Active 1 goal linked to scheduled/document ed intervention 1 goal intervention scheduled/document ed in this visit PT Orthopedic Condition Disciplines: PT 11/13/2021 Active 1 goal linked to scheduled/document ed intervention 3 goal interventions scheduled/document ed in this visit PT Learning Assessment Disciplines: PT 11/13/2021 Active 1 goal linked to scheduled/document ed intervention 1 goal intervention scheduled/document ed in this visit Goals Goal Associated Problem Outcome Goal Met? Visit Notes Patient/caregiver will demonstrate ability to obtain, store, identify and administer ordered medications, keep accurate medication list in home, and adhere to medication schedule Medication Education No Patient/caregiver will be able to identify signs/symptoms of sepsis infection and will verbalize actions to take if suspected Sepsis No Patient to maintain parameters within physician-specified ranges Physician Specific Parameters No Manage Risk for falls Description: Patient/caregiver will verbalize knowledge of individualized fall prevention strategies by 12/14/21. . Risk for Falls No Manage Pain Description: Patient/caregiver will verbalize knowledge and understanding of appropriate techniques to control pain, including pain medication and non-pharmacological techniques. Patient will verbalize or demonstrate an acceptable level of pain as evidenced by a pain score of <5/10 and improvement in ability to perform activities of daily living to be achieved by 12/14/21. . Pain No Manage diabetic foot care Description: Patient/caregiver will demonstrate basic understanding of and compliance with diabetic self-care management as evidenced by verbalizing purpose of daily foot care and assessment by 12/14/21. Diabetic Foot Care No Patient/caregiver will teach back high risk medication side effect and precaution education High Risk Medications No Manage discharge planning Description: Patient/caregiver will verbalize understanding of ongoing discharge plan provided related to disease management, arrangements for outpatient and/or community services, obtaining medications, supplies, and DME, as needed. Discharge No Improved Muscle Performance and/or ROM Description: LTG: Patient will demonstrate improved muscle performance to meet functional goals as evidenced by ability to tolerate 10 min of standing activity, to be achieved by 12/14/21. . STG: Patient and/or caregiver will verbalize/demonstrate independence with home exercise program, to improve functional mobility, to be achieved by 11/23/21. PT Impaired muscle performance and/or ROM No Improved Stair Climbing Description: LTG: Patient will demonstrate improved stair negotiation as evidenced by ascend/descend 3 steps without railing independently, to safely access community and exit home, to be achieved by 12/14/21. . PT Impaired gait No Improved Gait Description: STG: Patient will demonstrate improved gait ability as evidenced by ambulation 150 feet with front wheeled walker independently with AD, in order to manuever throughout home , to be achieved by 11/30/21. LTG: Patient will demonstrate improved gait ability as evidenced by ambulation 150 feet with quad cane independently with AD, to return to safe household and community ambulation, in order to return to [facility], to be achieved by 12/14/21. . PT Impaired gait No Improved Balance Description: LTG: Patient will demonstrate improved standing balance to meet functional goals as evidenced by TUG score of <1min to be achieved by 12/14/21. . PT Impaired balance No Manage Orthopedic Condition Description: Improve patient and/or caregiver understanding of post surgical and/or non-surgical orthopedic intervention management as evidenced by patient and/or caregiver able to verbalize, demonstrate, and teach back instruction, to be achieved by 12/14/21. . PT Orthopedic Condition No Demonstrate understanding of education Description: Patient and/or caregiver will understand educational instruction to be achieved by 12/14/21. . PT Learning Assessment No Interventions Intervention Associated Problem/Goal Status Variance Visit Notes Medication Education Description: Evaluate/instruct patient/caregiver on obtaining, storing, identifying and administering ordered medications as well as keeping accurate medication list in the home and adhereing to medication schedule Problem:Medication Education Goal:Patient/caregive r will demonstrate ability to obtain, store, identify and administer ordered medications, keep accurate medication list in home, and adhere to medication schedule Completed Patient instructed on importance of keeping accurate medication list in home. Risk of Sepsis Description: Patient is at risk for sepsis. Monitor closely for s/s of sepsis. Problem:Sepsis Goal:Patient/caregive r will be able to identify signs/symptoms of sepsis infection and will verbalize actions to take if suspected Completed SPO2 Description: Notify Dr. Ochoa if pulse ox is <92% at rest. Problem:Physician Specific Parameters Goal:Patient to maintain parameters within physician-specified ranges Completed Instruct on individual fall risk factors and strategies to prevent falls and injuries caused by falls. Problem:Risk for Falls Goal:Manage Risk for falls Completed PT: Patient instructed on Eliminating Environmental Hazards: Keep pathways clear and Keep rooms and walkways well lit Instruct on pain and instruct on strategies to control pain Problem:Pain Goal:Manage Pain Completed patient instructed on techniques to control pain including Pharmacological measures and Non-Pharmacological measures; positioning/elevation. Monitor lower extremities for skin lesions and educate on proper foot care Problem:Diabetic Foot Care Goal:Manage diabetic foot care Completed patient instructed on diabetic foot care including daily skin inspection. Opioids- Instruct on high risk medication Problem:High Risk Medications Goal:Patient/caregive r will teach back high risk medication side effect and precaution education Completed patient instructed on the following: Possible side effects of opioid medication including sedation, decreased rate of breathing, and constipation. Instructed on reporting over sedation to prescribing physician, practice deep breathing techniques every hour while awake, and prevention of constipation by increasing water and fiber intake, increase activity as tolerated, and use stool softener as prescribed. Only take opioids as prescribed, do not share your medications, and take proper precautions in storing and properly disposing of opioids once no longer needed. Follow providers guidelines for driving and weaning from prescribed opioid. Instruct on ongoing discharge plan Problem:Discharge Goal:Manage discharge planning Completed Ongoing Discharge plan: Discharge plan discussed with patient including frequency and duration for home PT and plan for transition to: live independently at home without ongoing services. Physical Therapy Therapeutic Exercises Problem:PT Impaired muscle performance and/or ROM Goal:Improved Muscle Performance and/or ROM Completed patient instructed on strengthening exercises including standing bilateral: calf raises, hip abduction and flexion, hamstring curls and mini sits x's 10 each. seated: laq x's 10 with verbal and visual cues for correct form and pace. patient instructed to perform home exercise program twice a day which included above exercises. Physical Therapy Stair Training Problem:PT Impaired gait Goal:Improved Stair Climbing Completed Stair training and instruction to patient on safe stair climbing, ascend/descend 3 steps, with railing with stand by assist and verbal cues for correct step pattern. Physical Therapy Gait Training Problem:PT Impaired gait Goal:Improved Gait Completed Gait training and instruction to patient on safe ambulation with quad cane for x's 50 and 100 feet with supervision, with verbal cues for corrections of gait deviations including picking up feet and increased step length. Physical Therapy Balance Training Problem:PT Impaired balance Goal:Improved Balance Completed Developed, implemented, and instructed patient on standing balance exercises lateral stepping at counter, linda UE support and standing exercises, cane training. Instruct on orthopedic precautions and weight bearing restrictions Description: Orthopedic precautions including left posterior hip: no hip flexion > 90 degrees, no adduction and no IR/ER rotation of involved extermity. Weight bearing restrictions include: WBAT of involved extremity. Problem:PT Orthopedic Condition Goal:Manage Orthopedic Condition Completed patient instructed on orthopedic precautions. Instruct on management of edema Problem:PT Orthopedic Condition Goal:Manage Orthopedic Condition Completed Instruct patient on management of edema including elevation of LLE above the level of the heart. Instruct on self-management of post surgical and/or non-surgical orthopedic intervention Problem:PT Orthopedic Condition Goal:Manage Orthopedic Condition Completed patient instructed on signs and symptoms of infection, signs and symptoms of DVT/PE, instructed on when to call provider and instructed on when to call 911. Instruct and educate on knowledge deficits Problem:PT Learning Assessment Goal:Demonstrate understanding of education Completed patient verbalize and/or demonstrate understanding of physical therapy education including home exercise program and surgical precautions. Education methods include: verbal cues. Further education required to improve knowledge and compliance with home exercise program. [facility] Visit Details Visit Type -AIR PRESS OPERATOR ROUTINE Discipline -Physical Therapy Problems Problem Description Start Date Status Goals Interve ntions Medication Education Disciplines: Skilled Services 11/13/2021 Active 1 goal linked to scheduled/document ed intervention 1 goal intervention scheduled/document ed in this visit Sepsis Disciplines: Skilled Services 11/13/2021 Active 1 goal linked to scheduled/document ed intervention 1 goal intervention scheduled/document ed in this visit Physician Specific Parameters Disciplines: Skilled Services 11/13/2021 Active 1 goal linked to scheduled/document ed intervention 1 goal intervention scheduled/document ed in this visit Risk for Falls Disciplines: Skilled Services 11/13/2021 Active 1 goal linked to scheduled/document ed intervention 1 goal intervention scheduled/document ed in this visit Pain Disciplines: Skilled Services 11/13/2021 Active 1 goal linked to scheduled/document ed intervention 1 goal intervention scheduled/document ed in this visit Diabetic Foot Care Disciplines: Skilled Services 11/13/2021 Active 1 goal linked to scheduled/document ed intervention 1 goal intervention scheduled/document ed in this visit Discharge Disciplines: Skilled Services 11/13/2021 Active 1 goal linked to scheduled/document ed intervention 1 goal intervention scheduled/document ed in this visit PT Impaired muscle performance and/or ROM Disciplines: PT 11/13/2021 Active 1 goal linked to scheduled/document ed intervention 1 goal intervention scheduled/document ed in this visit PT Impaired mobility Disciplines: PT 11/13/2021 Active 1 goal linked to scheduled/document ed intervention 1 goal intervention scheduled/document ed in this visit PT Impaired gait Disciplines: PT 11/13/2021 Active 1 goal linked to scheduled/document ed intervention 1 goal intervention scheduled/document ed in this visit PT Impaired balance Disciplines: PT 11/13/2021 Active 1 goal linked to scheduled/document ed intervention 1 goal intervention scheduled/document ed in this visit PT Orthopedic Condition Disciplines: PT 11/13/2021 Active 1 goal linked to scheduled/document ed intervention 3 goal interventions scheduled/document ed in this visit PT Learning Assessment Disciplines: PT 11/13/2021 Active 1 goal linked to scheduled/document ed intervention 1 goal intervention scheduled/document ed in this visit Goals Goal Associated Problem Outcome Goal Met? Visit Notes Patient/caregiver will demonstrate ability to obtain, store, identify and administer ordered medications, keep accurate medication list in home, and adhere to medication schedule Medication Education No Patient/caregiver will be able to identify signs/symptoms of sepsis infection and will verbalize actions to take if suspected Sepsis No Patient to maintain parameters within physician-specified ranges Physician Specific Parameters No Manage Risk for falls Description: Patient/caregiver will verbalize knowledge of individualized fall prevention strategies by 12/14/21. . Risk for Falls No Manage Pain Description: Patient/caregiver will verbalize knowledge and understanding of appropriate techniques to control pain, including pain medication and non-pharmacological techniques. Patient will verbalize or demonstrate an acceptable level of pain as evidenced by a pain score of <5/10 and improvement in ability to perform activities of daily living to be achieved by 12/14/21. . Pain No Manage diabetic foot care Description: Patient/caregiver will demonstrate basic understanding of and compliance with diabetic self-care management as evidenced by verbalizing purpose of daily foot care and assessment by 12/14/21. Diabetic Foot Care No Manage discharge planning Description: Patient/caregiver will verbalize understanding of ongoing discharge plan provided related to disease management, arrangements for outpatient and/or community services, obtaining medications, supplies, and DME, as needed. Discharge No Improved Muscle Performance and/or ROM Description: LTG: Patient will demonstrate improved muscle performance to meet functional goals as evidenced by ability to tolerate 10 min of standing activity, to be achieved by 12/14/21. . STG: Patient and/or caregiver will verbalize/demonstrate independence with home exercise program, to improve functional mobility, to be achieved by 11/23/21. PT Impaired muscle performance and/or ROM No Improved Bed Mobility Description: STG: Patient will demonstrate improved bed mobility, ability to position self and supine <> sit independently to be achieved by 11/30/21. PT Impaired mobility No Improved Gait Description: STG: Patient will demonstrate improved gait ability as evidenced by ambulation 150 feet with front wheeled walker independently with AD, in order to manuever throughout home , to be achieved by 11/30/21. LTG: Patient will demonstrate improved gait ability as evidenced by ambulation 150 feet with quad cane independently with AD, to return to safe household and community ambulation, in order to return to plf, to be achieved by 12/14/21. . PT Impaired gait No Improved Balance Description: LTG: Patient will demonstrate improved standing balance to meet functional goals as evidenced by TUG score of <1min to be achieved by 12/14/21. . PT Impaired balance No Manage Orthopedic Condition Description: Improve patient and/or caregiver understanding of post surgical and/or non-surgical orthopedic intervention management as evidenced by patient and/or caregiver able to verbalize, demonstrate, and teach back instruction, to be achieved by 12/14/21. . PT Orthopedic Condition No Demonstrate understanding of education Description: Patient and/or caregiver will understand educational instruction to be achieved by 12/14/21. . PT Learning Assessment No Interventions Intervention Associated Problem/Goal Status Variance Visit Notes Medication Education Description: Evaluate/instruct patient/caregiver on obtaining, storing, identifying and administering ordered medications as well as keeping accurate medication list in the home and adhereing to medication schedule Problem:Medication Education Goal:Patient/caregi moraima will demonstrate ability to obtain, store, identify and administer ordered medications, keep accurate medication list in home, and adhere to medication schedule Completed Patient instructed on adhering to medication schedule. Risk of Sepsis Description: Patient is at risk for sepsis. Monitor closely for s/s of sepsis. Problem:Sepsis Goal:Patient/caregi moraima will be able to identify signs/symptoms of sepsis infection and will verbalize actions to take if suspected Completed SPO2 Description: Notify Dr. Ochoa if pulse ox is <92% at rest. Problem:Physician Specific Parameters Goal:Patient to maintain parameters within physician-specified ranges Completed Instruct on individual fall risk factors and strategies to prevent falls and injuries caused by falls. Problem:Risk for Falls Goal:Manage Risk for falls Completed PT: Patient instructed on Managing Pain Instruct on pain and instruct on strategies to control pain Problem:Pain Goal:Manage Pain Completed patient instructed on techniques to control pain including Pharmacological measures and Non-Pharmacological measures; use of thermal modalities, apply ice to affected area for the following prescribed frequency: prn. Monitor lower extremities for skin lesions and educate on proper foot care Problem:Diabetic Foot Care Goal:Manage diabetic foot care Completed patient instructed on diabetic foot care including daily skin inspection. Instruct on ongoing discharge plan Problem:Discharge Goal:Manage discharge planning Completed Ongoing Discharge plan: Discharge plan discussed with patient including frequency and duration for home PT and plan for transition to: live independently at home without ongoing services. Physical Therapy Therapeutic Exercises Problem:PT Impaired muscle performance and/or ROM Goal:Improved Muscle Performance and/or ROM Completed patient instructed on strengthening exercises including bilateral calf raises, hipabduction and flexion, hamstring curls and mini sits x's 15each with verbal and visual cues for correct form and slower pace. patient instructed to perform home exercise program twice a day which included above exercises. Physical Therapy Bed Mobility Training Problem:PT Impaired mobility Goal:Improved Bed Mobility Other (specify reason) Patient plans to sleep in chair, Physical Therapy Gait Training Problem:PT Impaired gait Goal:Improved Gait Completed Gait training and instruction to patient on safe ambulation with quad cane for 2x's 100 feet with stand by assist, with verbal cues for corrections of gait deviations including oncreased step length and height. Patient able to demostrate normal gait pattern when cued but has difficulty maintaining throughout walking. Physical Therapy Balance Training Problem:PT Impaired balance Goal:Improved Balance Completed Developed, implemented, and instructed patient on standing balance exercises including bilateral standing exercises . Instruct on orthopedic precautions and weight bearing restrictions Description: Orthopedic precautions including left posterior hip: no hip flexion > 90 degrees, no adduction and no IR/ER rotation of involved extermity. Weight bearing restrictions include: WBAT of involved extremity. Problem:PT Orthopedic Condition Goal:Manage Orthopedic Condition Completed patient instructed on orthopedic precautions. Good recall of precautions Instruct on management of edema Problem:PT Orthopedic Condition Goal:Manage Orthopedic Condition Completed Instruct patient on management of edema including elevation of LLE above the level of the heart. Instruct on self-management of post surgical and/or non-surgical orthopedic intervention Problem:PT Orthopedic Condition Goal:Manage Orthopedic Condition Completed patient instructed on signs and symptoms of infection, signs and symptoms of DVT/PE, instructed on when to call provider and instructed on when to call 911. Instruct and educate on knowledge deficits Problem:PT Learning Assessment Goal:Demonstrate understanding of education Completed patient verbalize and/or demonstrate understanding of physical therapy education including home exercise program and surgical precautions. Education methods include: verbal cues. Further education required to improve knowledge and compliance with home exercise program. [facility] Visit Details Visit Type -AIR PRESS OPERATOR ROUTINE Discipline -Physical Therapy Problems Problem Description Start Date Status Goals Interve ntions Medication Education Disciplines: Skilled Services 11/13/2021 Active 1 goal linked to scheduled/document ed intervention 1 goal intervention scheduled/document ed in this visit Sepsis Disciplines: Skilled Services 11/13/2021 Active 1 goal linked to scheduled/document ed intervention 1 goal intervention scheduled/document ed in this visit Physician Specific Parameters Disciplines: Skilled Services 11/13/2021 Active 1 goal linked to scheduled/document ed intervention 1 goal intervention scheduled/document ed in this visit Risk for Falls Disciplines: Skilled Services 11/13/2021 Active 1 goal linked to scheduled/document ed intervention 1 goal intervention scheduled/document ed in this visit Pain Disciplines: Skilled Services 11/13/2021 Active 1 goal linked to scheduled/document ed intervention 1 goal intervention scheduled/document ed in this visit Diabetic Foot Care Disciplines: Skilled Services 11/13/2021 Active 1 goal linked to scheduled/document ed intervention 1 goal intervention scheduled/document ed in this visit Discharge Disciplines: Skilled Services 11/13/2021 Active 1 goal linked to scheduled/document ed intervention 1 goal intervention scheduled/document ed in this visit PT Impaired muscle performance and/or ROM Disciplines: PT 11/13/2021 Active 1 goal linked to scheduled/document ed intervention 1 goal intervention scheduled/document ed in this visit PT Impaired mobility Disciplines: PT 11/13/2021 Active 2 goals linked to scheduled/document ed interventions 2 goal interventions scheduled/document ed in this visit PT Impaired gait Disciplines: PT 11/13/2021 Active 1 goal linked to scheduled/document ed intervention 1 goal intervention scheduled/document ed in this visit PT Impaired balance Disciplines: PT 11/13/2021 Active 1 goal linked to scheduled/document ed intervention 1 goal intervention scheduled/document ed in this visit PT Orthopedic Condition Disciplines: PT 11/13/2021 Active 1 goal linked to scheduled/document ed intervention 3 goal interventions scheduled/document ed in this visit PT Learning Assessment Disciplines: PT 11/13/2021 Active 1 goal linked to scheduled/document ed intervention 1 goal intervention scheduled/document ed in this visit Goals Goal Associated Problem Outcome Goal Met? Visit Notes Patient/caregiver will demonstrate ability to obtain, store, identify and administer ordered medications, keep accurate medication list in home, and adhere to medication schedule Medication Education No Patient/caregiver will be able to identify signs/symptoms of sepsis infection and will verbalize actions to take if suspected Sepsis No Patient to maintain parameters within physician-specified ranges Physician Specific Parameters No Manage Risk for falls Description: Patient/caregiver will verbalize knowledge of individualized fall prevention strategies by 12/14/21. . Risk for Falls No Manage Pain Description: Patient/caregiver will verbalize knowledge and understanding of appropriate techniques to control pain, including pain medication and non-pharmacological techniques. Patient will verbalize or demonstrate an acceptable level of pain as evidenced by a pain score of <5/10 and improvement in ability to perform activities of daily living to be achieved by 12/14/21. . Pain No Manage diabetic foot care Description: Patient/caregiver will demonstrate basic understanding of and compliance with diabetic self-care management as evidenced by verbalizing purpose of daily foot care and assessment by 12/14/21. Diabetic Foot Care No Manage discharge planning Description: Patient/caregiver will verbalize understanding of ongoing discharge plan provided related to disease management, arrangements for outpatient and/or community services, obtaining medications, supplies, and DME, as needed. Discharge No Improved Muscle Performance and/or ROM Description: LTG: Patient will demonstrate improved muscle performance to meet functional goals as evidenced by ability to tolerate 10 min of standing activity, to be achieved by 12/14/21. . STG: Patient and/or caregiver will verbalize/demonstrate independence with home exercise program, to improve functional mobility, to be achieved by 11/23/21. PT Impaired muscle performance and/or ROM No Improved Transfers Description: LTG: Patient will demonstrate safe transfers to/from bed, chair, toilet, shower/tub and car independently with AD, to be achieved by 12/14/21. . PT Impaired mobility No Improved Bed Mobility Description: STG: Patient will demonstrate improved bed mobility, ability to position self and supine <> sit independently to be achieved by 11/30/21. PT Impaired mobility No Improved Gait Description: STG: Patient will demonstrate improved gait ability as evidenced by ambulation 150 feet with front wheeled walker independently with AD, in order to manuever throughout home , to be achieved by 11/30/21. LTG: Patient will demonstrate improved gait ability as evidenced by ambulation 150 feet with quad cane independently with AD, to return to safe household and community ambulation, in order to return to plf, to be achieved by 12/14/21. . PT Impaired gait No Improved Balance Description: LTG: Patient will demonstrate improved standing balance to meet functional goals as evidenced by TUG score of <1min to be achieved by 12/14/21. . PT Impaired balance No Manage Orthopedic Condition Description: Improve patient and/or caregiver understanding of post surgical and/or non-surgical orthopedic intervention management as evidenced by patient and/or caregiver able to verbalize, demonstrate, and teach back instruction, to be achieved by 12/14/21. . PT Orthopedic Condition No Demonstrate understanding of education Description: Patient and/or caregiver will understand educational instruction to be achieved by 12/14/21. . PT Learning Assessment No Interventions Intervention Associated Problem/Goal Status Variance Visit Notes Medication Education Description: Evaluate/instruct patient/caregiver on obtaining, storing, identifying and administering ordered medications as well as keeping accurate medication list in the home and adhereing to medication schedule Problem:Medication Education Goal:Patient/caregiv er will demonstrate ability to obtain, store, identify and administer ordered medications, keep accurate medication list in home, and adhere to medication schedule Completed Patient instructed on importance of keeping accurate medication list in home. Risk of Sepsis Description: Patient is at risk for sepsis. Monitor closely for s/s of sepsis. Problem:Sepsis Goal:Patient/caregiv er will be able to identify signs/symptoms of sepsis infection and will verbalize actions to take if suspected Completed SPO2 Description: Notify Dr. Ochoa if pulse ox is <92% at rest. Problem:Physician Specific Parameters Goal:Patient to maintain parameters within physician-specified ranges Completed Instruct on individual fall risk factors and strategies to prevent falls and injuries caused by falls. Problem:Risk for Falls Goal:Manage Risk for falls Completed PT: Patient instructed on Eliminating Environmental Hazards: Keep pathways clear and Keep rooms and walkways well lit Managing Impaired Functional Mobility: Use assistive device(s): Cane Instruct on pain and instruct on strategies to control pain Problem:Pain Goal:Manage Pain Completed patient instructed on techniques to control pain including Non-Pharmacological measures; rest. Monitor lower extremities for skin lesions and educate on proper foot care Problem:Diabetic Foot Care Goal:Manage diabetic foot care Completed patient instructed on diabetic foot care including wearing proper footwear/avoiding going barefoot. Instruct on ongoing discharge plan Problem:Discharge Goal:Manage discharge planning Completed Ongoing Discharge plan: Discharge plan discussed with patient including frequency and duration for home PT and plan for transition to: live independently at home without ongoing services. Physical Therapy Therapeutic Exercises Problem:PT Impaired muscle performance and/or ROM Goal:Improved Muscle Performance and/or ROM Completed patient instructed on strengthening exercises including linda standing: calf raises, hip abduction, and flexion, hamstring curls and mini sits x's 20each. seated: LAQ x's 20 with verbal cues for correct form and pace. patient instructed to perform home exercise program twice a day which included above exercises. Physical Therapy Transfer Training Problem:PT Impaired mobility Goal:Improved Transfers Completed Transfer training and instruction to patient on safe transfers to and from chair with independent Physical Therapy Bed Mobility Training Problem:PT Impaired mobility Goal:Improved Bed Mobility Other (specify reason) Patient wants to continue to sleep in chair and declined bed mobility Physical Therapy Gait Training Problem:PT Impaired gait Goal:Improved Gait Completed Gait training and instruction to patient on safe ambulation with quad cane for 2x's 100 feet with supervision, with verbal cues for corrections of gait deviations including increased step length and height. Physical Therapy Balance Training Problem:PT Impaired balance Goal:Improved Balance Completed Developed, implemented, and instructed patient on standing balance exercises including lateral stepping at counter w/ unilateral support and SBA for safety. Instruct on orthopedic precautions and weight bearing restrictions Description: Orthopedic precautions including left posterior hip: no hip flexion > 90 degrees, no adduction and no IR/ER rotation of involved extermity. Weight bearing restrictions include: WBAT of involved extremity. Problem:PT Orthopedic Condition Goal:Manage Orthopedic Condition Completed patient instructed on orthopedic precautions. Good recall of surgical precautions Instruct on management of edema Problem:PT Orthopedic Condition Goal:Manage Orthopedic Condition Completed Instruct patient on management of edema including elevation of LLe above the level of the heart. Instruct on self-management of post surgical and/or non-surgical orthopedic intervention Problem:PT Orthopedic Condition Goal:Manage Orthopedic Condition Completed patient instructed on managagement of orthopedic condition. Instruct and educate on knowledge deficits Problem:PT Learning Assessment Goal:Demonstrate understanding of education Completed patient verbalize and/or demonstrate understanding of physical therapy education including home exercise program and surgical precautions. Education methods include: verbal cues. Further education required to improve knowledge and compliance with home exercise program. [facility] Visit Details Visit Type -PT AGENCY DC W V ISIT Discipline -Physical Therapy Problems Problem Description Start Date Status Goals Interve ntions Medication Education Disciplines: Skilled Services 11/13/2021 Resolved on 12/11/2021 1 goal linked to scheduled/document ed intervention 1 goal intervention scheduled/document ed in this visit Sepsis Disciplines: Skilled Services 11/13/2021 Resolved on 12/11/2021 1 goal linked to scheduled/document ed intervention 1 goal intervention scheduled/document ed in this visit Physician Specific Parameters Disciplines: Skilled Services 11/13/2021 Resolved on 12/11/2021 1 goal linked to scheduled/document ed intervention 1 goal intervention scheduled/document ed in this visit Risk for Falls Disciplines: Skilled Services 11/13/2021 Resolved on 12/11/2021 1 goal linked to scheduled/document ed intervention 1 goal intervention scheduled/document ed in this visit Pain Disciplines: Skilled Services 11/13/2021 Resolved on 12/11/2021 1 goal linked to scheduled/document ed intervention 1 goal intervention scheduled/document ed in this visit Diabetic Foot Care Disciplines: Skilled Services 11/13/2021 Resolved on 12/11/2021 1 goal linked to scheduled/document ed intervention 1 goal intervention scheduled/document ed in this visit High Risk Medications Disciplines: Skilled Services 11/13/2021 Resolved on 12/11/2021 1 goal linked to scheduled/document ed intervention Discharge Disciplines: Skilled Services 11/13/2021 Resolved on 12/11/2021 1 goal linked to scheduled/document ed intervention 1 goal intervention scheduled/document ed in this visit PT Impaired muscle performance and/or ROM Disciplines: PT 11/13/2021 Resolved on 12/11/2021 1 goal linked to scheduled/document ed intervention 1 goal intervention scheduled/document ed in this visit PT Impaired mobility Disciplines: PT 11/13/2021 Resolved on 12/11/2021 2 goals linked to scheduled/document ed interventions 2 goal interventions scheduled/document ed in this visit PT Impaired gait Disciplines: PT 11/13/2021 Resolved on 12/11/2021 2 goals linked to scheduled/document ed interventions 2 goal interventions scheduled/document ed in this visit PT Impaired balance Disciplines: PT 11/13/2021 Resolved on 12/11/2021 1 goal linked to scheduled/document ed intervention 1 goal intervention scheduled/document ed in this visit PT Orthopedic Condition Disciplines: PT 11/13/2021 Resolved on 12/11/2021 1 goal linked to scheduled/document ed intervention 3 goal interventions scheduled/document ed in this visit PT Learning Assessment Disciplines: PT 11/13/2021 Resolved on 12/11/2021 1 goal linked to scheduled/document ed intervention 1 goal intervention scheduled/document ed in this visit Goals Goal Associated Problem Outcome Goal Met? Visit Notes Patient/caregiver will demonstrate ability to obtain, store, identify and administer ordered medications, keep accurate medication list in home, and adhere to medication schedule Medication Education Completed Yes Patient/caregiver will be able to identify signs/symptoms of sepsis infection and will verbalize actions to take if suspected Sepsis Completed Yes Patient to maintain parameters within physician-specified ranges Physician Specific Parameters Completed Yes Manage Risk for falls Description: Patient/caregiver will verbalize knowledge of individualized fall prevention strategies by 12/14/21. . Risk for Falls Completed Yes Manage Pain Description: Patient/caregiver will verbalize knowledge and understanding of appropriate techniques to control pain, including pain medication and non-pharmacological techniques. Patient will verbalize or demonstrate an acceptable level of pain as evidenced by a pain score of <5/10 and improvement in ability to perform activities of daily living to be achieved by 12/14/21. . Pain Completed Yes Manage diabetic foot care Description: Patient/caregiver will demonstrate basic understanding of and compliance with diabetic self-care management as evidenced by verbalizing purpose of daily foot care and assessment by 12/14/21. Diabetic Foot Care Completed Yes Patient/caregiver will teach back high risk medication side effect and precaution education High Risk Medications Completed Yes Manage discharge planning Description: Patient/caregiver will verbalize understanding of ongoing discharge plan provided related to disease management, arrangements for outpatient and/or community services, obtaining medications, supplies, and DME, as needed. Discharge Completed Yes Improved Muscle Performance and/or ROM Description: LTG: Patient will demonstrate improved muscle performance to meet functional goals as evidenced by ability to tolerate 10 min of standing activity, to be achieved by 12/14/21. . STG: Patient and/or caregiver will verbalize/demonstrate independence with home exercise program, to improve functional mobility, to be achieved by 11/23/21. PT Impaired muscle performance and/or ROM Completed Yes Improved Transfers Description: LTG: Patient will demonstrate safe transfers to/from bed, chair, toilet, shower/tub and car independently with AD, to be achieved by 12/14/21. . PT Impaired mobility Completed Yes Improved Bed Mobility Description: STG: Patient will demonstrate improved bed mobility, ability to position self and supine <> sit independently to be achieved by 11/30/21. PT Impaired mobility Completed Yes Improved Stair Climbing Description: LTG: Patient will demonstrate improved stair negotiation as evidenced by ascend/descend 3 steps without railing independently, to safely access community and exit home, to be achieved by 12/14/21. . PT Impaired gait Completed Yes Improved Gait Description: STG: Patient will demonstrate improved gait ability as evidenced by ambulation 150 feet with front wheeled walker independently with AD, in order to manuever throughout home , to be achieved by 11/30/21. LTG: Patient will demonstrate improved gait ability as evidenced by ambulation 150 feet with quad cane independently with AD, to return to safe household and community ambulation, in order to return to plf, to be achieved by 12/14/21. . PT Impaired gait Completed Yes Improved Balance Description: LTG: Patient will demonstrate improved standing balance to meet functional goals as evidenced by TUG score of <1min to be achieved by 12/14/21. . PT Impaired balance Completed Yes Manage Orthopedic Condition Description: Improve patient and/or caregiver understanding of post surgical and/or non-surgical orthopedic intervention management as evidenced by patient and/or caregiver able to verbalize, demonstrate, and teach back instruction, to be achieved by 12/14/21. . PT Orthopedic Condition Completed Yes Demonstrate understanding of education Description: Patient and/or caregiver will understand educational instruction to be achieved by 12/14/21. . PT Learning Assessment Completed Yes Interventions Intervention Associated Problem/Goal Status Variance Visit Notes Medication Education Description: Evaluate/instruct patient/caregiver on obtaining, storing, identifying and administering ordered medications as well as keeping accurate medication list in the home and adhereing to medication schedule Problem:Medication Education Goal:Patient/caregive r will demonstrate ability to obtain, store, identify and administer ordered medications, keep accurate medication list in home, and adhere to medication schedule Completed Patient instructed on importance of keeping accurate medication list in home. Risk of Sepsis Description: Patient is at risk for sepsis. Monitor closely for s/s of sepsis. Problem:Sepsis Goal:Patient/caregive r will be able to identify signs/symptoms of sepsis infection and will verbalize actions to take if suspected Completed SPO2 Description: Notify Dr. Ochoa if pulse ox is <92% at rest. Problem:Physician Specific Parameters Goal:Patient to maintain parameters within physician-specified ranges Completed Instruct on individual fall risk factors and strategies to prevent falls and injuries caused by falls. Problem:Risk for Falls Goal:Manage Risk for falls Completed PT: Patient instructed on Eliminating Environmental Hazards: Keep pathways clear, Remove unsafe rugs, Move furniture from pathways, Keep rooms and walkways well lit and Wear supportive shoes or non-skid socks-as needed Managing Impaired Functional Mobility: Use assistive device(s): Cane Managing Pain Instruct on pain and instruct on strategies to control pain Problem:Pain Goal:Manage Pain Completed patient instructed on techniques to control pain including Pharmacological measures and Non-Pharmacological measures; rest, positioning/elevation and use of thermal modalities, apply ice to affected area . Monitor lower extremities for skin lesions and educate on proper foot care Problem:Diabetic Foot Care Goal:Manage diabetic foot care Completed patient instructed on diabetic foot care including daily skin inspection and wearing proper footwear/avoiding going barefoot. Instruct on final discharge plan and deliver discharge instructions Problem:Discharge Goal:Manage discharge planning Completed Delivered Discharge plan: Discharge plan discussed with patient for plan for transition to: live independently at home without ongoing services Physical Therapy Therapeutic Exercises Problem:PT Impaired muscle performance and/or ROM Goal:Improved Muscle Performance and/or ROM Completed patient instructed on strengthening exercises including STANDING : HEEL RAISES, TOE RAISES , KNEE FLEX, HIP EXT, HIP FLEX, HIP ABD X 20 with verbal cues to slow down . patient instructed to perform home exercise program daily. Physical Therapy Transfer Training Problem:PT Impaired mobility Goal:Improved Transfers Completed ANGELA all transfers with safe/proper technique Physical Therapy Bed Mobility Training Problem:PT Impaired mobility Goal:Improved Bed Mobility Completed ANGELA bed mobility Physical Therapy Stair Training Problem:PT Impaired gait Goal:Improved Stair Climbing Completed up and down 3 steps with 2 rails . step together sequence Physical Therapy Gait Training Problem:PT Impaired gait Goal:Improved Gait Completed Indep amb with no ad short houehold distances/surfaces x 150' cues to flex the L knee and ankle which are very stiff from edema. Also cues to maintain a longer stride length Physical Therapy Balance Training Problem:PT Impaired balance Goal:Improved Balance Completed pt demos improved dynamic standing balance as evidenced by a tug of 26 Instruct on orthopedic precautions and weight bearing restrictions Description: Orthopedic precautions including left posterior hip: no hip flexion > 90 degrees, no adduction and no IR/ER rotation of involved extermity. Weight bearing restrictions include: WBAT of involved extremity. Problem:PT Orthopedic Condition Goal:Manage Orthopedic Condition Completed patient instructed on orthopedic precautions and weight bearing restrictions. Instruct on management of edema Problem:PT Orthopedic Condition Goal:Manage Orthopedic Condition Completed Instruct patient on management of edema including elevation of LLE above the level of the heart and ice. Instruct on self-management of post surgical and/or non-surgical orthopedic intervention Problem:PT Orthopedic Condition Goal:Manage Orthopedic Condition Completed patient instructed on managagement of orthopedic condition, signs and symptoms of DVT/PE, follow provider guidance for showering and instructed on when to call provider. Instruct and educate on knowledge deficits Problem:PT Learning Assessment Goal:Demonstrate understanding of education Completed patient verbalize and/or demonstrate understanding of physical therapy education including home exercise program, orthopedic condition management and fall prevention strategies. Education methods include: verbal cues. documented in this encounter [facility] for referral (narrative)* Diagnostic Procedure Only (Routine) - Pending Review Specialty Diagnoses / Procedures Referred By Contac t Referred To Contact XR IMAGING Diagnoses Pain in left hip Procedures XR HIP 2V AP/LAT LEFT ([place]) RADEX HIP UNILATERAL WITH PELVIS 2-3 VIEWS James Quiroz APRN.DROP FORGER HELPER [address] [address] Xr Imaging Referral ID Status Reason Start Date Expiration Date Visits Requested Visits Authorized [id number] Pending Review Auto-Generat ed Referral 11/15/2021 12/14/2022 [address] [facility] for referral (narrative)* Diagnostic Procedure Only (Routine) - Closed Specialty Diagnoses / Procedures Referred By Contac t Referred To Contact XR IMAGING Diagnoses Pain in left hip Procedures XR HIP 2V AP/LAT LEFT ([place]) RADEX HIP UNILATERAL WITH PELVIS 2-3 VIEWS James Quiroz APRN.DROP FORGER HELPER [address] [address] Xr Imaging Referral ID Status Reason Start Date Expiration Date V isits Requested Visits Authorized [id number] Closed Auto-Generate d Referral 11/15/2021 12/14/2022 [address] [facility] for referral (narrative)* Diagnostic Procedure Only (Urgent) - Closed Specialty Diagnoses / Procedures Referred By Contac t Referred To Contact US IMAGING Diagnoses Leg swelling Procedures US DVT LOWER BILAT DUP-SCAN XTR VEINS COMPLETE BILATERAL STUDY Glendy Ochoa MD [address] [place] [id number] Us Imaging Referral ID Status Reason Start Date Expiration Date V isits Requested Visits Authorized [id number] Closed Auto-Generate d Referral 12/31/2021 01/30/2023 [address] [facility] for referral (narrative)* Diagnostic Procedure Only (Urgent) - Closed Specialty Diagnoses / Procedures Referred By Contac t Referred To Contact US IMAGING Diagnoses Leg swelling Procedures US DVT LOWER BILAT DUP-SCAN XTR VEINS COMPLETE BILATERAL STUDY Glendy Ochoa MD [address] [place] [address] Us Imaging Referral ID Status Reason Start Date Expiration Date V isits Requested Visits Authorized [id number] Closed Auto-Generate d Referral 12/31/2021 01/30/2023 [address] [facility] for referral (narrative)No reason for referral information availableWCleveland Clinic Children[facility] Work Phone: Reason for visit Narrative* Diagnostic Procedure Only (Routine) - Closed Specialty Diagnoses / Procedures Referred By Contac t Referred To Contact XR IMAGING Diagnoses Pain in left hip Procedures XR HIP 2V AP/LAT LEFT (AK,FL,ME) RADEX HIP UNILATERAL WITH PELVIS 2-3 VIEWS James Quiroz, DANILO.DROP FORGER HELPER [address] [place] [address] Xr Imaging Referral ID Status Reason Start Date Expiration Date V isits Requested Visits Authorized [id number] Closed Auto-Generate d Referral 11/15/2021 12/14/2022 [address] [facility] for visit Narrative* Diagnostic Procedure Only (Urgent) - Closed Specialty Diagnoses / Procedures Referred By Contac t Referred To Contact US IMAGING Diagnoses Leg swelling Procedures US DVT LOWER BILAT DUP-SCAN XTR VEINS COMPLETE BILATERAL STUDY Glendy Ochoa MD [address] [place] [address] Us Imaging Referral ID Status Reason Start Date Expiration Date V isits Requested Visits Authorized [id number] Closed Auto-Generate d Referral 12/31/2021 01/30/2023 1 1 [facility] Summary Purpose Family History No Family History Records Found Relationship Condition Age at Onset Recorded Date/T connie mother Coronary artery disease Unknown Cerebrovascular accident (CVA) Unknown Advance Directives No Advanced Directives Records FoundDocuments on File Type Date Recorded Patient Data Analytics Chief Scientist Expl anation Advance Directive(s) 11/11/2021 11:48 AM Advance Directive(s) 10/15/2021 3:52 PM Latest Code Status on File Code Status Date Activated Date Inactivated Comments Full Code 11/13/2021 5:21 PM Documents on File Type Date Recorded Patient Data Analytics Chief Scientist Expl anation Advance Directive(s) 11/11/2021 11:48 AM Advance Directive(s) 10/15/2021 3:52 PM Latest Code Status on File Code Status Date Activated Date Inactivated Comments Full Code 11/13/2021 5:21 PM Advance Directive Response Recorded Date/ Time Advance Directives No April 9:01am Living Will No September 20 10:17am Power of Senior Clinical Data Manager No September 20, 2020 10:17am Latest Code Status on File Code Status Date Activated Date Inactivated Comments Full Code 11/13/2021 5:21 PM Advance Directive Response Recorded Date/ Time Advance Directives No April 9:01am Living Will No April 24, 2 023 3:04pm Power of Senior Clinical Data Manager No April 24, 2023 3:04pm Advance Directive Response Recorded Date/ Time Advance Directives No April 8:01am Living Will No October 06, 2 024 6:38pm Power of Senior Clinical Data Manager No October 06, 2023 6:38pm Date Activated Date Inactivated Comments 11/13/2021 5:21 PM Advance Directive Response Recorded Date/ Time Advance Directives No April 9:01am Living Will No November 14, 2023 10:29am Power of Senior Clinical Data Manager No November 13 10:29am Date Activated Date Inactivated Comments 11/13/2021 5:21 PM Advance Directive Response Recorded Date/ Time Do you have a Healthcare Power of Senior Clinical Data Manager? No January 31, 2025 11:56am Advance Directives No April 9:01am Reason for Referral Specialty Diagnoses / Procedures Referred By Lata mensah Referred To Contact Evie Grewal MD [address] [place] [address] Referral ID Status Reason Start Date Expiration Date Visits Re quested Visits Authorized [id number] Closed 1 1 Specialty Diagnoses / Procedures Referred By Lata mensah Referred To Contact Anna Hernandez, ADNILO.COFFEE SHOP ATTENDANT [address] [place] [address] Referral ID Status Reason Start Date Expiration Date Visits Re quested Visits Authorized [id number] Closed 1 1 Specialty Diagnoses / Procedures Referred By Lata mensah Referred To Contact Diagnoses Controlled type 2 diabetes mellitus with diabetic neuropathy, with long-term current use of insulin (HCC) Anna Hernandez, DANILO.COFFEE SHOP ATTENDANT [address] [place] [address] Referral ID Status Reason Start Date Expiration Date V isits Requested Visits Authorized [id number] Pending Review 1 1 Chief Complaint and Reason for Visit Chief Complaint 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 GLENDY OCHOA [facility]) EDEMA TO LOWER EXTREMITY ASHD, CAD, EDEMA Reason for Visit Cardiomyopathy CVA (cerebral vascular accident) Atherosclerotic heart disease of [place] coronary artery without angina pectoris Essential hypertension Mixed hyperlipidemia Stenosis of right carotid artery Cardiomyopathy Leg edema Atherosclerotic heart disease of [place] coronary artery without angina pectoris Essential hypertension Mixed hyperlipidemia Chief Complaint EDEMA TO LOWER EXTRE MITY ASHD, CAD, EDEMA ASHD, CAD, EDEMA Reason for Visit Cardiomyopathy Leg edema Atherosclerotic heart disease of [place] coronary artery without angina pectoris Essential hypertension Mixed hyperlipidemia Chief Complaint 6 m fu PREV PFM PT ATHEROSCLEROTIC HEART DISEASE, SYNCOPE ABDOMINAL PAIN Reason for Visit Cardiomyopathy CVA (cerebral vascular accident) Syncope Atherosclerotic heart disease of [place] coronary artery without angina pectoris Essential hypertension Mixed hyperlipidemia Stenosis of right carotid artery Chief Complaint Lap Robotic Inguinal Hernia w/mesh Lap Robotic Inguinal Hernia w/mesh HERNIA - 6 M FU Palpitations and abdominal pain Reason for Visit Right inguinal herni a Cardiomyopathy Syncope Atherosclerotic heart disease of [place] coronary artery without angina pectoris Essential hypertension Mixed hyperlipidemia Chief Complaint Palpitations and abd ominal pain S/P [facility] 10/06 R CALF PAIN Reason for Visit Cardiomyopathy Irregular heart rhythm Atherosclerotic heart disease of [place] coronary artery without angina pectoris Essential hypertension Mixed hyperlipidemia Chief Complaint Admit Date N/V January 31, 2025 11:5 1am Chief Complaint Admit Date N/V January 31, 2025 11:5 1am FU REQUEST FROM March 17, 2025 9: 57am Reason for Visit Admit Date Cardiomyopathy March 17, 2025 9:5 7am Atherosclerotic heart diseas e of [place] coronary artery without angina pectoris March 17, 2025 9:57am Essential hypertension March 17, 2025 9:57am Mixed hyperlipidemia March 17, 2025 9: 57am Additional Source Comments (unrecognized sect ion and content) No Status Records FoundNo Status Records FoundNo Status Records FoundNo Status Records FoundNo Status Records FoundNo Status Records Found INFORMATION SOURCE (unrecogn ized section and content) DATE CREATED AUTHOR 02/09/2018 [facility] DATE CREATED AUTHOR AUTHOR'S ORGANIZ ATION 02/09/2018 [facility] DATE CREATED AUTHOR AUTHOR'S ORGANIZ ATION 09/16/2021 [facility] DATE CREATED AUTHOR AUTHOR'S ORGANIZ ATION 01/03/2022 [facility] DATE CREATED AUTHOR AUTHOR'S ORGANIZ ATION 03/18/2025 [facility] DATE CREATED AUTHOR AUTHOR'S ORGANIZ ATION 06/27/2025 [facility] Source Comments (unrecognize d section and content) In the event this informatio n is protected by the Federal Confidentiality of Alcohol and Drug Abuse Patient Records regulations: The Federal rules restrict any use of the information to criminally investigate or prosecute any alcohol or drug abuse patient.[facility] the event this information is protected by the Federal Confidentiality of Alcohol and Drug Abuse Patient Records regulations: The Federal rules restrict any use of the information to criminally investigate or prosecute any alcohol or drug abuse patient.[facility] the event this information is protected by the Federal Confidentiality of Alcohol and Drug Abuse Patient Records regulations: The Federal rules restrict any use of the information to criminally investigate or prosecute any alcohol or drug abuse patient.[facility] the event this information is protected by the Federal Confidentiality of Alcohol and Drug Abuse Patient Records regulations: The Federal rules restrict any use of the information to criminally investigate or prosecute any alcohol or drug abuse patient.[facility] the event this information is protected by the Federal Confidentiality of Alcohol and Drug Abuse Patient Records regulations: The Federal rules restrict any use of the information to criminally investigate or prosecute any alcohol or drug abuse patient.[facility] the event this information is protected by the Federal Confidentiality of Alcohol and Drug Abuse Patient Records regulations: The Federal rules restrict any use of the information to criminally investigate or prosecute any alcohol or drug abuse patient.[facility] Dublin[facility] the event this information is protected by the Federal Confidentiality of Alcohol and Drug Abuse Patient Records regulations: The Federal rules restrict any use of the information to criminally investigate or prosecute any alcohol or drug abuse patient.[facility] Dublin[facility] the event this information is protected by the Federal Confidentiality of Alcohol and Drug Abuse Patient Records regulations: The Federal rules restrict any use of the information to criminally investigate or prosecute any alcohol or drug abuse patient.[facility] Dublin[facility] the event this information is protected by the Federal Confidentiality of Alcohol and Drug Abuse Patient Records regulations: The Federal rules restrict any use of the information to criminally investigate or prosecute any alcohol or drug abuse patient.[facility] Dublin[facility] the event this information is protected by the Federal Confidentiality of Alcohol and Drug Abuse Patient Records regulations: The Federal rules restrict any use of the information to criminally investigate or prosecute any alcohol or drug abuse patient.[facility] Dublin[facility] the event this information is protected by the Federal Confidentiality of Alcohol and Drug Abuse Patient Records regulations: The Federal rules restrict any use of the information to criminally investigate or prosecute any alcohol or drug abuse patient.[facility] Dublin[facility] the event this information is protected by the Federal Confidentiality of Alcohol and Drug Abuse Patient Records regulations: The Federal rules restrict any use of the information to criminally investigate or prosecute any alcohol or drug abuse patient.[facility] Dublin[facility] the event this information is protected by the Federal Confidentiality of Alcohol and Drug Abuse Patient Records regulations: The Federal rules restrict any use of the information to criminally investigate or prosecute any alcohol or drug abuse patient.[facility] DublinIn the event this information is protected by the Federal Confidentiality of Alcohol and Drug Abuse Patient Records regulations: The Federal rules restrict any use of the information to criminally investigate or prosecute any alcohol or drug abuse patient.[facility] DublinIn the event this information is protected by the Federal Confidentiality of Alcohol and Drug Abuse Patient Records regulations: The Federal rules restrict any use of the information to criminally investigate or prosecute any alcohol or drug abuse patient.[facility] DublinIn the event this information is protected by the Federal Confidentiality of Alcohol and Drug Abuse Patient Records regulations: The Federal rules restrict any use of the information to criminally investigate or prosecute any alcohol or drug abuse patient.[facility] DublinIn the event this information is protected by the Federal Confidentiality of Alcohol and Drug Abuse Patient Records regulations: The Federal rules restrict any use of the information to criminally investigate or prosecute any alcohol or drug abuse patient.[facility] DublinIn the event this information is protected by the Federal Confidentiality of Alcohol and Drug Abuse Patient Records regulations: The Federal rules restrict any use of the information to criminally investigate or prosecute any alcohol or drug abuse patient.[facility] DublinIn the event this information is protected by the Federal Confidentiality of Alcohol and Drug Abuse Patient Records regulations: The Federal rules restrict any use of the information to criminally investigate or prosecute any alcohol or drug abuse patient.[facility] DublinIn the event this information is protected by the Federal Confidentiality of Alcohol and Drug Abuse Patient Records regulations: The Federal rules restrict any use of the information to criminally investigate or prosecute any alcohol or drug abuse patient.[facility] DublinIn the event this information is protected by the Federal Confidentiality of Alcohol and Drug Abuse Patient Records regulations: The Federal rules restrict any use of the information to criminally investigate or prosecute any alcohol or drug abuse patient.[facility] DublinIn the event this information is protected by the Federal Confidentiality of Alcohol and Drug Abuse Patient Records regulations: The Federal rules restrict any use of the information to criminally investigate or prosecute any alcohol or drug abuse patient.[facility] DublinIn the event this information is protected by the Federal Confidentiality of Alcohol and Drug Abuse Patient Records regulations: The Federal rules restrict any use of the information to criminally investigate or prosecute any alcohol or drug abuse patient.[facility] DublinIn the event this information is protected by the Federal Confidentiality of Alcohol and Drug Abuse Patient Records regulations: The Federal rules restrict any use of the information to criminally investigate or prosecute any alcohol or drug abuse patient.[facility] DublinIn the event this information is protected by the Federal Confidentiality of Alcohol and Drug Abuse Patient Records regulations: The Federal rules restrict any use of the information to criminally investigate or prosecute any alcohol or drug abuse patient.[facility] DublinIn the event this information is protected by the Federal Confidentiality of Alcohol and Drug Abuse Patient Records regulations: The Federal rules restrict any use of the information to criminally investigate or prosecute any alcohol or drug abuse patient.[facility] DublinIn the event this information is protected by the Federal Confidentiality of Alcohol and Drug Abuse Patient Records regulations: The Federal rules restrict any use of the information to criminally investigate or prosecute any alcohol or drug abuse patient.[facility] DublinIn the event this information is protected by the Federal Confidentiality of Alcohol and Drug Abuse Patient Records regulations: The Federal rules restrict any use of the information to criminally investigate or prosecute any alcohol or drug abuse patient.[facility] DublinIn the event this information is protected by the Federal Confidentiality of Alcohol and Drug Abuse Patient Records regulations: The Federal rules restrict any use of the information to criminally investigate or prosecute any alcohol or drug abuse patient.[facility] DublinIn the event this information is protected by the Federal Confidentiality of Alcohol and Drug Abuse Patient Records regulations: The Federal rules restrict any use of the information to criminally investigate or prosecute any alcohol or drug abuse patient.[facility] DublinIn the event this information is protected by the Federal Confidentiality of Alcohol and Drug Abuse Patient Records regulations: The Federal rules restrict any use of the information to criminally investigate or prosecute any alcohol or drug abuse patient.[facility] DublinIn the event this information is protected by the Federal Confidentiality of Alcohol and Drug Abuse Patient Records regulations: The Federal rules restrict any use of the information to criminally investigate or prosecute any alcohol or drug abuse patient.[facility] DublinIn the event this information is protected by the Federal Confidentiality of Alcohol and Drug Abuse Patient Records regulations: The Federal rules restrict any use of the information to criminally investigate or prosecute any alcohol or drug abuse patient.[facility] DublinIn the event this information is protected by the Federal Confidentiality of Alcohol and Drug Abuse Patient Records regulations: The Federal rules restrict any use of the information to criminally investigate or prosecute any alcohol or drug abuse patient.[facility] DublinIn the event this information is protected by the Federal Confidentiality of Alcohol and Drug Abuse Patient Records regulations: The Federal rules restrict any use of the information to criminally investigate or prosecute any alcohol or drug abuse patient.[facility] DublinIn the event this information is protected by the Federal Confidentiality of Alcohol and Drug Abuse Patient Records regulations: The Federal rules restrict any use of the information to criminally investigate or prosecute any alcohol or drug abuse patient.[facility] DublinIn the event this information is protected by the Federal Confidentiality of Alcohol and Drug Abuse Patient Records regulations: The Federal rules restrict any use of the information to criminally investigate or prosecute any alcohol or drug abuse patient.[facility] DublinIn the event this information is protected by the Federal Confidentiality of Alcohol and Drug Abuse Patient Records regulations: The Federal rules restrict any use of the information to criminally investigate or prosecute any alcohol or drug abuse patient.[facility] DublinIn the event this information is protected by the Federal Confidentiality of Alcohol and Drug Abuse Patient Records regulations: The Federal rules restrict any use of the information to criminally investigate or prosecute any alcohol or drug abuse patient.[facility] DublinIn the event this information is protected by the Federal Confidentiality of Alcohol and Drug Abuse Patient Records regulations: The Federal rules restrict any use of the information to criminally investigate or prosecute any alcohol or drug abuse patient.[facility] DublinIn the event this information is protected by the Federal Confidentiality of Alcohol and Drug Abuse Patient Records regulations: The Federal rules restrict any use of the information to criminally investigate or prosecute any alcohol or drug abuse patient.[facility] DublinIn the event this information is protected by the Federal Confidentiality of Alcohol and Drug Abuse Patient Records regulations: The Federal rules restrict any use of the information to criminally investigate or prosecute any alcohol or drug abuse patient.[facility] DublinIn the event this information is protected by the Federal Confidentiality of Alcohol and Drug Abuse Patient Records regulations: The Federal rules restrict any use of the information to criminally investigate or prosecute any alcohol or drug abuse patient.[facility] DublinIn the event this information is protected by the Federal Confidentiality of Alcohol and Drug Abuse Patient Records regulations: The Federal rules restrict any use of the information to criminally investigate or prosecute any alcohol or drug abuse patient.[facility] DublinIn the event this information is protected by the Federal Confidentiality of Alcohol and Drug Abuse Patient Records regulations: The Federal rules restrict any use of the information to criminally investigate or prosecute any alcohol or drug abuse patient.[facility] DublinIn the event this information is protected by the Federal Confidentiality of Alcohol and Drug Abuse Patient Records regulations: The Federal rules restrict any use of the information to criminally investigate or prosecute any alcohol or drug abuse patient.[facility] DublinIn the event this information is protected by the Federal Confidentiality of Alcohol and Drug Abuse Patient Records regulations: The Federal rules restrict any use of the information to criminally investigate or prosecute any alcohol or drug abuse patient.[facility] DublinIn the event this information is protected by the Federal Confidentiality of Alcohol and Drug Abuse Patient Records regulations: The Federal rules restrict any use of the information to criminally investigate or prosecute any alcohol or drug abuse patient.[facility] DublinIn the event this information is protected by the Federal Confidentiality of Alcohol and Drug Abuse Patient Records regulations: The Federal rules restrict any use of the information to criminally investigate or prosecute any alcohol or drug abuse patient.[facility] DublinIn the event this information is protected by the Federal Confidentiality of Alcohol and Drug Abuse Patient Records regulations: The Federal rules restrict any use of the information to criminally investigate or prosecute any alcohol or drug abuse patient.[facility] DublinIn the event this information is protected by the Federal Confidentiality of Alcohol and Drug Abuse Patient Records regulations: The Federal rules restrict any use of the information to criminally investigate or prosecute any alcohol or drug abuse patient.[facility] DublinIn the event this information is protected by the Federal Confidentiality of Alcohol and Drug Abuse Patient Records regulations: The Federal rules restrict any use of the information to criminally investigate or prosecute any alcohol or drug abuse patient.[facility] DublinIn the event this information is protected by the Federal Confidentiality of Alcohol and Drug Abuse Patient Records regulations: The Federal rules restrict any use of the information to criminally investigate or prosecute any alcohol or drug abuse patient.[facility] DublinIn the event this information is protected by the Federal Confidentiality of Alcohol and Drug Abuse Patient Records regulations: The Federal rules restrict any use of the information to criminally investigate or prosecute any alcohol or drug abuse patient.[facility] DublinIn the event this information is protected by the Federal Confidentiality of Alcohol and Drug Abuse Patient Records regulations: The Federal rules restrict any use of the information to criminally investigate or prosecute any alcohol or drug abuse patient.[facility] DublinIn the event this information is protected by the Federal Confidentiality of Alcohol and Drug Abuse Patient Records regulations: The Federal rules restrict any use of the information to criminally investigate or prosecute any alcohol or drug abuse patient.[facility] DublinIn the event this information is protected by the Federal Confidentiality of Alcohol and Drug Abuse Patient Records regulations: The Federal rules restrict any use of the information to criminally investigate or prosecute any alcohol or drug abuse patient.[facility] DublinIn the event this information is protected by the Federal Confidentiality of Alcohol and Drug Abuse Patient Records regulations: The Federal rules restrict any use of the information to criminally investigate or prosecute any alcohol or drug abuse patient.[facility] DublinIn the event this information is protected by the Federal Confidentiality of Alcohol and Drug Abuse Patient Records regulations: The Federal rules restrict any use of the information to criminally investigate or prosecute any alcohol or drug abuse patient.[facility] DublinIn the event this information is protected by the Federal Confidentiality of Alcohol and Drug Abuse Patient Records regulations: The Federal rules restrict any use of the information to criminally investigate or prosecute any alcohol or drug abuse patient.[facility] DublinIn the event this information is protected by the Federal Confidentiality of Alcohol and Drug Abuse Patient Records regulations: The Federal rules restrict any use of the information to criminally investigate or prosecute any alcohol or drug abuse patient.[facility] DublinIn the event this information is protected by the Federal Confidentiality of Alcohol and Drug Abuse Patient Records regulations: The Federal rules restrict any use of the information to criminally investigate or prosecute any alcohol or drug abuse patient.[facility] DublinIn the event this information is protected by the Federal Confidentiality of Alcohol and Drug Abuse Patient Records regulations: The Federal rules restrict any use of the information to criminally investigate or prosecute any alcohol or drug abuse patient.[facility] DublinIn the event this information is protected by the Federal Confidentiality of Alcohol and Drug Abuse Patient Records regulations: The Federal rules restrict any use of the information to criminally investigate or prosecute any alcohol or drug abuse patient.[facility] DublinIn the event this information is protected by the Federal Confidentiality of Alcohol and Drug Abuse Patient Records regulations: The Federal rules restrict any use of the information to criminally investigate or prosecute any alcohol or drug abuse patient.[facility] DublinIn the event this information is protected by the Federal Confidentiality of Alcohol and Drug Abuse Patient Records regulations: The Federal rules restrict any use of the information to criminally investigate or prosecute any alcohol or drug abuse patient.[facility] DublinIn the event this information is protected by the Federal Confidentiality of Alcohol and Drug Abuse Patient Records regulations: The Federal rules restrict any use of the information to criminally investigate or prosecute any alcohol or drug abuse patient.[facility] DublinIn the event this information is protected by the Federal Confidentiality of Alcohol and Drug Abuse Patient Records regulations: The Federal rules restrict any use of the information to criminally investigate or prosecute any alcohol or drug abuse patient.[facility] DublinIn the event this information is protected by the Federal Confidentiality of Alcohol and Drug Abuse Patient Records regulations: The Federal rules restrict any use of the information to criminally investigate or prosecute any alcohol or drug abuse patient.[facility] DublinIn the event this information is protected by the Federal Confidentiality of Alcohol and Drug Abuse Patient Records regulations: The Federal rules restrict any use of the information to criminally investigate or prosecute any alcohol or drug abuse patient.[facility] DublinIn the event this information is protected by the Federal Confidentiality of Alcohol and Drug Abuse Patient Records regulations: The Federal rules restrict any use of the information to criminally investigate or prosecute any alcohol or drug abuse patient.[facility] DublinIn the event this information is protected by the Federal Confidentiality of Alcohol and Drug Abuse Patient Records regulations: The Federal rules restrict any use of the information to criminally investigate or prosecute any alcohol or drug abuse patient.[facility] DublinIn the event this information is protected by the Federal Confidentiality of Alcohol and Drug Abuse Patient Records regulations: The Federal rules restrict any use of the information to criminally investigate or prosecute any alcohol or drug abuse patient.[facility] DublinIn the event this information is protected by the Federal Confidentiality of Alcohol and Drug Abuse Patient Records regulations: The Federal rules restrict any use of the information to criminally investigate or prosecute any alcohol or drug abuse patient.[facility] DublinIn the event this information is protected by the Federal Confidentiality of Alcohol and Drug Abuse Patient Records regulations: The Federal rules restrict any use of the information to criminally investigate or prosecute any alcohol or drug abuse patient.[facility] DublinIn the event this information is protected by the Federal Confidentiality of Alcohol and Drug Abuse Patient Records regulations: The Federal rules restrict any use of the information to criminally investigate or prosecute any alcohol or drug abuse patient.[facility] DublinIn the event this information is protected by the Federal Confidentiality of Alcohol and Drug Abuse Patient Records regulations: The Federal rules restrict any use of the information to criminally investigate or prosecute any alcohol or drug abuse patient.[facility] DublinIn the event this information is protected by the Federal Confidentiality of Alcohol and Drug Abuse Patient Records regulations: The Federal rules restrict any use of the information to criminally investigate or prosecute any alcohol or drug abuse patient.[facility] DublinIn the event this information is protected by the Federal Confidentiality of Alcohol and Drug Abuse Patient Records regulations: The Federal rules restrict any use of the information to criminally investigate or prosecute any alcohol or drug abuse patient.[facility] DublinIn the event this information is protected by the Federal Confidentiality of Alcohol and Drug Abuse Patient Records regulations: The Federal rules restrict any use of the information to criminally investigate or prosecute any alcohol or drug abuse patient.[facility] DublinIn the event this information is protected by the Federal Confidentiality of Alcohol and Drug Abuse Patient Records regulations: The Federal rules restrict any use of the information to criminally investigate or prosecute any alcohol or drug abuse patient.[facility] DublinIn the event this information is protected by the Federal Confidentiality of Alcohol and Drug Abuse Patient Records regulations: The Federal rules restrict any use of the information to criminally investigate or prosecute any alcohol or drug abuse patient.[facility] DublinIn the event this information is protected by the Federal Confidentiality of Alcohol and Drug Abuse Patient Records regulations: The Federal rules restrict any use of the information to criminally investigate or prosecute any alcohol or drug abuse patient.[facility] DublinIn the event this information is protected by the Federal Confidentiality of Alcohol and Drug Abuse Patient Records regulations: The Federal rules restrict any use of the information to criminally investigate or prosecute any alcohol or drug abuse patient.[facility] DublinIn the event this information is protected by the Federal Confidentiality of Alcohol and Drug Abuse Patient Records regulations: The Federal rules restrict any use of the information to criminally investigate or prosecute any alcohol or drug abuse patient.[facility] DublinIn the event this information is protected by the Federal Confidentiality of Alcohol and Drug Abuse Patient Records regulations: The Federal rules restrict any use of the information to criminally investigate or prosecute any alcohol or drug abuse patient.[facility] DublinIn the event this information is protected by the Federal Confidentiality of Alcohol and Drug Abuse Patient Records regulations: The Federal rules restrict any use of the information to criminally investigate or prosecute any alcohol or drug abuse patient.[facility] DublinIn the event this information is protected by the Federal Confidentiality of Alcohol and Drug Abuse Patient Records regulations: The Federal rules restrict any use of the information to criminally investigate or prosecute any alcohol or drug abuse patient.[facility] DublinIn the event this information is protected by the Federal Confidentiality of Alcohol and Drug Abuse Patient Records regulations: The Federal rules restrict any use of the information to criminally investigate or prosecute any alcohol or drug abuse patient.[facility] DublinIn the event this information is protected by the Federal Confidentiality of Alcohol and Drug Abuse Patient Records regulations: The Federal rules restrict any use of the information to criminally investigate or prosecute any alcohol or drug abuse patient.[facility] DublinIn the event this information is protected by the Federal Confidentiality of Alcohol and Drug Abuse Patient Records regulations: The Federal rules restrict any use of the information to criminally investigate or prosecute any alcohol or drug abuse patient.[facility] DublinIn the event this information is protected by the Federal Confidentiality of Alcohol and Drug Abuse Patient Records regulations: The Federal rules restrict any use of the information to criminally investigate or prosecute any alcohol or drug abuse patient.[facility] DublinIn the event this information is protected by the Federal Confidentiality of Alcohol and Drug Abuse Patient Records regulations: The Federal rules restrict any use of the information to criminally investigate or prosecute any alcohol or drug abuse patient.[facility] DublinIn the event this information is protected by the Federal Confidentiality of Alcohol and Drug Abuse Patient Records regulations: The Federal rules restrict any use of the information to criminally investigate or prosecute any alcohol or drug abuse patient.[facility] DublinIn the event this information is protected by the Federal Confidentiality of Alcohol and Drug Abuse Patient Records regulations: The Federal rules restrict any use of the information to criminally investigate or prosecute any alcohol or drug abuse patient.[facility] DublinIn the event this information is protected by the Federal Confidentiality of Alcohol and Drug Abuse Patient Records regulations: The Federal rules restrict any use of the information to criminally investigate or prosecute any alcohol or drug abuse patient.[facility] DublinIn the event this information is protected by the Federal Confidentiality of Alcohol and Drug Abuse Patient Records regulations: The Federal rules restrict any use of the information to criminally investigate or prosecute any alcohol or drug abuse patient.[facility] DublinIn the event this information is protected by the Federal Confidentiality of Alcohol and Drug Abuse Patient Records regulations: The Federal rules restrict any use of the information to criminally investigate or prosecute any alcohol or drug abuse patient.[facility] DublinIn the event this information is protected by the Federal Confidentiality of Alcohol and Drug Abuse Patient Records regulations: The Federal rules restrict any use of the information to criminally investigate or prosecute any alcohol or drug abuse patient.[facility] DublinIn the event this information is protected by the Federal Confidentiality of Alcohol and Drug Abuse Patient Records regulations: The Federal rules restrict any use of the information to criminally investigate or prosecute any alcohol or drug abuse patient.[facility] DublinIn the event this information is protected by the Federal Confidentiality of Alcohol and Drug Abuse Patient Records regulations: The Federal rules restrict any use of the information to criminally investigate or prosecute any alcohol or drug abuse patient.[facility] DublinIn the event this information is protected by the Federal Confidentiality of Alcohol and Drug Abuse Patient Records regulations: The Federal rules restrict any use of the information to criminally investigate or prosecute any alcohol or drug abuse patient.[facility] DublinIn the event this information is protected by the Federal Confidentiality of Alcohol and Drug Abuse Patient Records regulations: The Federal rules restrict any use of the information to criminally investigate or prosecute any alcohol or drug abuse patient.[facility] DublinIn the event this information is protected by the Federal Confidentiality of Alcohol and Drug Abuse Patient Records regulations: The Federal rules restrict any use of the information to criminally investigate or prosecute any alcohol or drug abuse patient.[facility] Reason for Visit (unrecogniz ed section and content) Reason Comments Home Care admit to agency Reason Comments Home Care requesting OT orders Reason Onset Date Comments Community Monitoring Outreach 11/19/2021 [facility] Out[facility] Reason Comments Home Care OT eval update Reason Comments Post Op Hip Replacement Reason Onset Date Comments Community Monitoring Outreach 12/05/2021 [facility] Reason Comments [employer] - Hospital Follow Up Reason Comments Home Care agency d/c Reason Onset Date Comments Community Monitoring Outreach 12/20/2021 [facility] Reason Onset Date Comments Community Monitoring Outreach 12/30/2021 [facility] Out[facility] Reason Comments Post Op Hip Replacement Reason Comments Nail Care Follow Up Reason Onset Date Comments Community Monitoring Outreach 01/14/2022 [facility] Out[facility] Reason Comments Follow Up Reason Onset Date Comments Community Monitoring Outreach 01/29/2022 [facility] Reason Comments Follow Up Reason Comments Medication Problem Reason Onset Date Comments Community Monitoring Outreach 02/14/2022 [facility] Out[facility] Reason Comments Established Patient Follow Up Reason Onset Date Comments Community Monitoring Outreach 03/07/2022 CH F Telephonic CDM Outreach Reason Onset Date Comments Community Monitoring Outreach 03/24/2022 Reason Onset Date Comments Refill Request 04/14/2022 Reason Comments F/U 3 Month Reason Comments Established Patient Follow Up nail care Reason Onset Date Comments Community Monitoring Outreach 05/26/2022 Reason Onset Date Comments Refill Request 06/03/2022 Reason Onset Date Comments Community Monitoring Outreach 06/11/2022 Reason Onset Date Comments Community Monitoring Outreach 07/14/2022 Reason Onset Date Comments Refill Request 07/21/2022 Reason Onset Date Comments Community Monitoring Outreach 08/19/2022 Reason Onset Date Comments Community Monitoring Outreach 08/22/2022 Reason Onset Date Comments Community Monitoring Outreach 09/16/2022 Reason Onset Date Comments Community Monitoring Outreach 10/15/2022 Reason Onset Date Comments Refill Request 10/22/2022 Reason Comments Patient Update Reason Onset Date Comments Community Monitoring Outreach 11/07/2022 Reason Onset Date Comments Community Monitoring Outreach 11/13/2022 Reason Onset Date Comments Community Monitoring Outreach 12/09/2022 Reason Onset Date Comments Community Monitoring Outreach 01/13/2023 Reason Onset Date Comments Community Monitoring Outresach 01/06/2023 Reason Comments Established Patient Follow Up Diabetic Foot Care Ulcer Reason Onset Date Comments Community Monitoring Outreach 02/09/2023 Reason Onset Date Comments Community Monitoring Outreach 03/16/2023 Reason Onset Date Comments Community Monitoring Outreach 03/23/2023 Reason Onset Date Comments Community Monitoring Outreach 05/20/2023 Reason Onset Date Comments Community Monitoring Outreach 06/16/2023 Reason Comments Established Patient Follow Up Diabetic Foot Check Reason Onset Date Comments Community Monitoring Outreach 07/20/2023 Reason Onset Date Comments Community Monitoring Outreach 09/29/2023 Reason Comments Established Patient Diabetic Foot Care Reason Onset Date Comments Refill Request 11/02/2023 Reason Comments Medicare Wellness Exam Reason Onset Date Comments Community Monitoring Outreach 11/04/2023 Reason Comments Forms Reason Comments ER F/U ABD pain and elevate d BP- EMS stated they believed patient in A-FIB however ER MD didn't think this Reason Comments Recheck was seen in [facility] ER 0 11/14/2023 for questionable cellulitis which was treated with cephalexin 500 mg four times a day.Discuss lab results completed 10/2023 Reason Onset Date Comments Community Monitoring Outreach 12/09/2023 Reason Onset Date Comments Community Monitoring Outreach 01/28/2024 Reason Onset Date Comments Community Monitoring Outreach 03/04/2024 Reason Onset Date Comments Refill Request 03/31/2024 Reason Onset Date Comments Community Monitoring Outreach 04/01/2024 Reason Comments 4 month f/u Reason Onset Date Comments [facility] 04/26/2024 Chronic Disease Management Routine Call Reason Onset Date Comments [facility] 05/24/2024 Chronic Disease Management Routine Call Reason Onset Date Comments Refill Request 05/26/2024 Reason Onset Date Comments [facility] 06/20/2024 Chronic Disease Management Routine Call Reason Onset Date Comments [facility] 07/21/2024 Chronic Disease Management Routine Call Reason Comments Follow Up DM, and med refills Reason Onset Date Comments Refill Request 08/22/2024 Reason Comments Established Patient Nail Care Reason Comments prescription problem Reason Comments Diabetic shoes Reason Onset Date Comments Refill Request 01/24/2025 Reason Comments Patient Update 01/31/25 [facility] ER Reason Comments Follow Up diabetes and review labs Reason Comments Established Patient Follow Up Diabetic Foot Care Care Teams (unrecognized sec tion and content) Receptionist Secretary Relationship Specialty Start Date End Date Evie Grewal MD [address] [place] [address] PCP - General 01/05/07 Hakan Hill, plastics design engineerBelt Machine Operator Internal Medicine 12/13/20 Tomas Lopez, [facility] [address] [place] [address] Specialty Federal Judicial Law Clerk Orthopedics 10/01/21 12/19/21 Glendy Ochoa MD [address] [address] Home Care Physician Orthopedics 11/12/21 Glendy Ochoa MD [address] [address] Referring Orthopedics 11/12/21 Receptionist Secretary Relationship Specialty Start Date End Date Evie Grewal MD [address] [place] [address] PCP - General 01/05/07 Hakan Hill RN Belt Machine Operator Internal Medicine 12/13/20 Tomas Lopez, [facility] [address] [place] [address] Specialty Federal Judicial Law Clerk Orthopedics 10/01/21 12/19/21 Glendy Ochoa MD [address] [address] Home Care Physician Orthopedics 11/12/21 Glendy Ochoa MD [address] [address] Referring Orthopedics 11/12/21 Receptionist Secretary Relationship Specialty Start Date End Date Evie Grewal MD [address] [place] [address] PCP - General 01/05/07 Hakan Hill, plastics design engineerBelt Machine Operator Internal Medicine 12/13/20 Tomas Lopez, [facility] [address] [place] [address] Specialty Federal Judicial Law Clerk Orthopedics 10/01/21 12/19/21 Glendy Ochoa MD [address] [address] Home Care Physician Orthopedics 11/12/21 Glendy Ochoa MD [address] [address] Referring Orthopedics 11/12/21 Receptionist Secretary Relationship Specialty Start Date End Date Evie Grewal MD [address] [place] [address] PCP - General 01/05/07 Hakan Hill, plastics design engineerBelt Machine Operator Internal Medicine 12/13/20 Tomas Lopez, [facility] [address] [place] [address] Specialty Federal Judicial Law Clerk Orthopedics 10/01/21 12/19/21 Glendy Ochoa MD [address] [address] Home Care Physician Orthopedics 11/12/21 Glendy Ochoa MD [address] [address] Referring Orthopedics 11/12/21 Receptionist Secretary Relationship Specialty Start Date End Date Evie Grewal MD [address] [place] [address] PCP - General 01/05/07 Hakan Hill, plastics design engineerBelt Machine Operator Internal Medicine 12/13/20 Tomas Lopez, [facility] [address] [place] [address] Specialty Federal Judicial Law Clerk Orthopedics 10/01/21 12/19/21 Glendy Ochoa MD [address] [address] Home Care Physician Orthopedics 11/12/21 Glendy Ochoa MD [address] [place] [address] Referring Orthopedics 11/12/21 Receptionist Secretary Relationship Specialty Start Date End Date Evie Grewal MD [address] [place] [address] PCP - General 01/05/07 Hakan Hill, plastics design engineerBelt Machine Operator Internal Medicine 12/13/20 Tomas Lopez, [facility] [address] [place] [address] Specialty Federal Judicial Law Clerk Orthopedics 10/01/21 12/19/21 Glendy Ochoa MD [address] [address] Home Care Physician Orthopedics 11/12/21 Glendy Ochoa MD [address] [address] Referring Orthopedics 11/12/21 Receptionist Secretary Relationship Specialty Start Date End Date Evie Grewal MD [address] [place] [address] PCP - General 01/05/07 Hakan Hill, plastics design engineerBelt Machine Operator Internal Medicine 12/13/20 SissenTomas, [facility] [address] [place] [address] Specialty Federal Judicial Law Clerk Orthopedics 10/01/21 12/19/21 Glendy Ochoa MD [address] [address] Home Care Physician Orthopedics 11/12/21 Glendy Ochoa MD [address] [address] Referring Orthopedics 11/12/21 Receptionist Secretary Relationship Specialty Start Date End Date Evie Grewal MD [address] [place] [address] PCP - General 01/05/07 Hakan Hill RN Belt Machine Operator Internal Medicine 12/13/20 Tomas Lopez, [facility] [address] [place] [address] Specialty Federal Judicial Law Clerk Orthopedics 10/01/21 12/19/21 Glendy Ochoa MD [address] [address] Home Care Physician Orthopedics 11/12/21 Glendy Ochoa MD [address] [address] Referring Orthopedics 11/12/21 Receptionist Secretary Relationship Specialty Start Date End Date Evie Grewal MD [address] [place] [address] PCP - General 01/05/07 Hakan Hill plastics design engineerBelt Machine Operator Internal Medicine 12/13/20 Tomas Lopez, [facility] [address] [place] [address] Specialty Federal Judicial Law Clerk Orthopedics 10/01/21 12/19/21 Glendy Ochoa MD [address] [address] Home Care Physician Orthopedics 11/12/21 Glendy Ochoa MD [address] [address] Referring Orthopedics 11/12/21 Receptionist Secretary Relationship Specialty Start Date End Date Evie Grewal MD [address] [place] [address] PCP - General 01/05/07 Hakan Hill, plastics design engineerBelt Machine Operator Internal Medicine 12/13/20 Tomas Lopez, [facility] [address] [place] [address] Specialty Federal Judicial Law Clerk Orthopedics 10/01/21 12/19/21 Glendy Ochoa MD [address] [address] Home Care Physician Orthopedics 11/12/21 Glendy Ochoa MD [address] [address] Referring Orthopedics 11/12/21 Receptionist Secretary Relationship Specialty Start Date End Date Evie Grewal MD [address] [place] [address] PCP - General 01/05/07 Hakan Hill, plastics design engineerBelt Machine Operator Internal Medicine 12/13/20 Tomas Lopez, [facility] [address] [place] [address] Specialty Federal Judicial Law Clerk Orthopedics 10/01/21 12/19/21 Glendy Ochoa MD [address] [address] Home Care Physician Orthopedics 11/12/21 Glendy Ochoa MD [address] [address] Referring Orthopedics 11/12/21 Receptionist Secretary Relationship Specialty Start Date End Date Evie Grewal MD [address] [place] [address] PCP - General 01/05/07 Hakan Hill, plastics design engineerBelt Machine Operator Internal Medicine 12/13/20 Tomas Lopez, [facility] [address] [place] [address] Specialty Federal Judicial Law Clerk Orthopedics 10/01/21 12/19/21 Glendy Ochoa MD [address] [place] [address] Home Care Physician Orthopedics 11/12/21 Glendy Ochoa MD [address] [place] [address] Referring Orthopedics 11/12/21 Receptionist Secretary Relationship Specialty Start Date End Date Evie Grewal MD [address] [place] [address] PCP - General 01/05/07 Hakan Hill, plastics design engineerBelt Machine Operator Internal Medicine 12/13/20 Tomas Lopez, [facility] [address] [place] [address] Specialty Federal Judicial Law Clerk Orthopedics 10/01/21 12/19/21 Glendy Ochoa MD [address] [place] [address] Home Care Physician Orthopedics 11/12/21 Glendy Ochoa MD [address] [place] [address] Referring Orthopedics 11/12/21 Receptionist Secretary Relationship Specialty Start Date End Date Evie Grewal MD [address] [place] [address] PCP - General 01/05/07 Hakan Hill, plastics design engineerBelt Machine Operator Internal Medicine 12/13/20 Tomas Lopez, [facility] [address] [place] [address] Specialty Federal Judicial Law Clerk Orthopedics 10/01/21 12/19/21 Glendy Ochoa MD [address] [address] Home Care Physician Orthopedics 11/12/21 Glendy Ochoa MD [address] [place] [address] Referring Orthopedics 11/12/21 Receptionist Secretary Relationship Specialty Start Date End Date Evie Grewal MD [address] [place] [address] PCP - General 01/05/07 Hakan Hill RN Belt Machine Operator Internal Medicine 12/13/20 Glendy Ochoa MD [address] [place] [address] Home Care Physician Orthopedics 11/12/21 Glendy Ochoa MD [address] [place] [address] Referring Orthopedics 11/12/21 Receptionist Secretary Relationship Specialty Start Date End Date Evie Grewal MD [address] [place] [address] PCP - General 01/05/07 Hakan Hill plastics design engineerBelt Machine Operator Internal Medicine 12/13/20 Glendy Ochoa MD [address] [address] Home Care Physician Orthopedics 11/12/21 Glendy Ochoa MD [address] [address] Referring Orthopedics 11/12/21 Receptionist Secretary Relationship Specialty Start Date End Date Evie Grewal MD [address] [place] [address] PCP - General 01/05/07 Hakan Hill, plastics design engineerBelt Machine Operator Internal Medicine 12/13/20 Glendy Ochoa MD [facility] [address] [address] Home Care Physician Orthopedics 11/12/21 Glendy Ochoa MD [facility] [address] [address] Referring Orthopedics 11/12/21 Receptionist Secretary Relationship Specialty Start Date End Date Evie Grewal MD [address] [place] [address] PCP - General 01/05/07 Hakan Hill, plastics design engineerBelt Machine Operator Internal Medicine 12/13/20 Glendy Ochoa MD [facility] [address] [address] Home Care Physician Orthopedics 11/12/21 Glendy Ochoa MD [facility] [address] [address] Referring Orthopedics 11/12/21 Receptionist Secretary Relationship Specialty Start Date End Date Evie Grewal MD [address] [place] [address] PCP - General 01/05/07 Hakan Hill, plastics design engineerBelt Machine Operator Internal Medicine 12/13/20 Glendy Ochoa MD [facility] [address] [address] Home Care Physician Orthopedics 11/12/21 Glendy Ochoa MD [facility] [address] [address] Referring Orthopedics 11/12/21 Receptionist Secretary Relationship Specialty Start Date End Date Evie Grewal MD [address] [place] [address] PCP - General 01/05/07 Hakan Hill, plastics design engineerBelt Machine Operator Internal Medicine 12/13/20 Tomas Lopez, [facility] [address] [place] [address] Specialty Federal Judicial Law Clerk Orthopedics 10/01/21 12/19/21 Receptionist Secretary Relationship Specialty Start Date End Date Evie Grewal MD [address] [place] [address] PCP - General 01/05/07 Hakan Hill, plastics design engineerBelt Machine Operator Internal Medicine 12/13/20 Glendy Ochoa MD [address] [place] [address] Home Care Physician Orthopedics 11/12/21 Glendy Ochoa MD [address] [place] [address] Referring Orthopedics 11/12/21 Receptionist Secretary Relationship Specialty Start Date End Date Evie Grewal MD [address] [place] [address] PCP - General 01/05/07 Hakan Hill, plastics design engineerBelt Machine Operator Internal Medicine 12/13/20 Glendy Ochoa MD [address] [place] [address] Home Care Physician Orthopedics 11/12/21 Glendy Ochoa MD [address] [place] [address] Referring Orthopedics 11/12/21 Receptionist Secretary Relationship Specialty Start Date End Date Evie Grewal MD [address] [place] [address] PCP - General 01/05/07 Hakan Hill, plastics design engineerBelt Machine Operator Internal Medicine 12/13/20 Glendy Ochoa MD [facility] [address] [address] Home Care Physician Orthopedics 11/12/21 Glendy Ochoa MD [facility] [address] [address] Referring Orthopedics 11/12/21 Receptionist Secretary Relationship Specialty Start Date End Date Evie Grewal MD [address] [place] [address] PCP - General 01/05/07 Hakan Hill, plastics design engineerBelt Machine Operator Internal Medicine 12/13/20 Glendy Ochoa MD [facility] [address] [address] Home Care Physician Orthopedics 11/12/21 Glendy Ochoa MD [facility] [address] [address] Referring Orthopedics 11/12/21 Receptionist Secretary Relationship Specialty Start Date End Date Evie Grewal MD [address] [place] [address] PCP - General 01/05/07 Hakan Hill, plastics design engineerBelt Machine Operator Internal Medicine 12/13/20 Glendy Ochoa MD [facility] [address] [address] Home Care Physician Orthopedics 11/12/21 Glendy Ochoa MD [facility] [address] [address] Referring Orthopedics 11/12/21 Receptionist Secretary Relationship Specialty Start Date End Date Evie Grewal MD [address] [place] [address] PCP - General 01/05/07 Hakan Hill, plastics design engineerBelt Machine Operator Internal Medicine 12/13/20 Glendy Ochoa MD [facility] [address] [address] Home Care Provider Orthopedics 11/12/21 Glendy Ochoa MD [facility] [address] [address] Referring Orthopedics 11/12/21 Receptionist Secretary Relationship Specialty Start Date End Date Evie Grewal MD [address] [place] [address] PCP - General 01/05/07 Hakan Hill, plastics design engineerBelt Machine Operator Internal Medicine 12/13/20 Glendy Ochoa MD [facility] [address] [address] Home Care Provider Orthopedics 11/12/21 Glendy Ochoa MD [facility] [address] [address] Referring Orthopedics 11/12/21 Receptionist Secretary Relationship Specialty Start Date End Date Evie Grewal MD [address] [place] [address] PCP - General 01/05/07 Hakan Hill, plastics design engineerBelt Machine Operator Internal Medicine 12/13/20 Glendy Ochoa MD [facility] [address] [address] Home Care Provider Orthopedics 11/12/21 Glendy Ochoa MD [facility] [address] [address] Referring Orthopedics 11/12/21 Receptionist Secretary Relationship Specialty Start Date End Date Evie Grewal MD [address] [facility] [place] [address] PCP - General 01/05/07 Hakan Hill, plastics design engineerBelt Machine Operator Internal Medicine 12/13/20 Glendy Ochoa MD [address] [address] Home Care Provider Orthopedics 11/12/21 Glendy Ochoa MD [address] [address] Referring Orthopedics 11/12/21 Receptionist Secretary Relationship Specialty Start Date End Date Evie Grewal MD [address] [place] [address] PCP - General 01/05/07 Thomas Mcclednon, plastics design engineerBelt Machine Operator Internal Medicine 12/13/20 Glendy Ochoa MD [facility] [address] [address] Home Care Provider Orthopedics 11/12/21 Glendy Ochoa MD [facility] [address] [address] Referring Orthopedics 11/12/21 Receptionist Secretary Relationship Specialty Start Date End Date Evie Grewal MD [address] [place] [address] PCP - General 01/05/07 Thomas Mcclendon, plastics design engineerBelt Machine Operator Internal Medicine 12/13/20 Glendy Ochoa MD [facility] [address] [address] Home Care Provider Orthopedics 11/12/21 Glendy Ochoa MD [facility] [address] [address] Referring Orthopedics 11/12/21 Receptionist Secretary Relationship Specialty Start Date End Date Evie Grewal MD [address] [place] [address] PCP - General 01/05/07 Thomas Mcclendon, plastics design engineerBelt Machine Operator Internal Medicine 12/13/20 Glendy Ochoa MD [facility] [address] [address] Home Care Provider Orthopedics 11/12/21 Glendy Ochoa MD [facility] [address] [address] Referring Orthopedics 11/12/21 Receptionist Secretary Relationship Specialty Start Date End Date Evie Grewal MD [address] [place] [address] PCP - General 01/05/07 Thomas Mcclendon, plastics design engineerBelt Machine Operator Internal Medicine 12/13/20 Glendy Ochoa MD [facility] [address] [address] Home Care Provider Orthopedics 11/12/21 Glendy Ochoa MD [facility] E [address] [address] Referring Orthopedics 11/12/21 Receptionist Secretary Relationship Specialty Start Date End Date Evie Grewal MD [address] [place] [address] PCP - General 01/05/07 Thomas Mcclendon, plastics design engineerBelt Machine Operator Internal Medicine 12/13/20 Glendy Ochoa MD [facility] [address] [address] Home Care Provider Orthopedics 11/12/21 Glendy Ochoa MD [address] [address] Referring Orthopedics 11/12/21 Receptionist Secretary Relationship Specialty Start Date End Date Evie Grewal MD [address] [place] [address] PCP - General 01/05/07 Thomas Mcclendon, plastics design engineerBelt Machine Operator Internal Medicine 12/13/20 Glendy Ochoa MD [address] [place] [address] Home Care Provider Orthopedics 11/12/21 Glendy Ochoa MD [address] [place] [address] Referring Orthopedics 11/12/21 Receptionist Secretary Relationship Specialty Start Date End Date Evie Grewal MD [address] [place] [address] PCP - General 01/05/07 Thomas Mcclendon, plastics design engineerBelt Machine Operator Internal Medicine 12/13/20 Glendy Ochoa MD [address] [place] [address] Home Care Provider Orthopedics 11/12/21 Glendy Ohcoa MD [facility] [address] [address] Referring Orthopedics 11/12/21 Receptionist Secretary Relationship Specialty Start Date End Date Evie Grewal MD [address] [place] [address] PCP - General 01/05/07 Thomas Mcclendon, plastics design engineerBelt Machine Operator Internal Medicine 12/13/20 Glendy Ochoa MD [facility] [address] [address] Home Care Provider Orthopedics 11/12/21 Glendy Ochoa MD [address] [address] Referring Orthopedics 11/12/21 Receptionist Secretary Relationship Specialty Start Date End Date Evie Grewal MD [address] [place] [address] PCP - General 01/05/07 Thomas Mcclendon, plastics design engineerBelt Machine Operator Internal Medicine 12/13/20 Glendy Ochoa MD [address] [address] Home Care Provider Orthopedics 11/12/21 Glendy Ochoa MD [address] [address] Referring Orthopedics 11/12/21 Receptionist Secretary Relationship Specialty Start Date End Date Evie Grewal MD [address] [place] [address] PCP - General 01/05/07 Thomas Mcclendon, plastics design engineerBelt Machine Operator Internal Medicine 12/13/20 Glendy Ochoa MD [address] [address] Home Care Provider Orthopedics 11/12/21 Glendy Ochoa MD [address] [address] Referring Orthopedics 11/12/21 Team Status: Active Member Role Status Dates Dr. Evie Grewal MD Family Provider Active Dr. Evie Grewal MD Primary Care Provider Active Team Status: Inactive Member Role Status Dates Dr. Evie Grewal MD Primary Care Provider, Referr ing Provider Active Becca GARCIA, PA Attending Provider Active Team Status: Active Member Role Status Dates Dr. Evie Grewal MD Primary Care Provider Active Dr. Kentrell Chery MD Attending Provider, Referring Pro vider Active Team Status: Inactive Member Role Status Dates Dr. Evie Grewal MD Primary Care Provider Active Becca GARCIA, PA Attending Provider, Referr ing Provider Active Team Status: Inactive Member Role Status Dates Dr. Evie Grewal MD Primary Care Provider Active Dr. Maxime Mistry DO Emergency Provider Active Receptionist Secretary Relationship Specialty Start Date End Date Evie Grewal MD [address] [place] [address] PCP - General 01/05/07 Thomas Mcclendon, plastics design engineerBelt Machine Operator Internal Medicine 12/13/20 Glendy Ochoa MD [address] [place] [address] Home Care Provider Orthopedics 11/12/21 Glendy Ochoa MD [address] [place] [address] Referring Orthopedics 11/12/21 Receptionist Secretary Relationship Specialty Start Date End Date Evie Grewal MD [address] [place] [address] PCP - General 01/05/07 Thomas Mcclendon RN Belt Machine Operator Internal Medicine 12/13/20 Glendy Ochoa MD [address] [place] [address] Home Care Provider Orthopedics 11/12/21 Glendy Ochoa MD [address] [place] [address] Referring Orthopedics 11/12/21 Receptionist Secretary Relationship Specialty Start Date End Date Evie Grewal MD [address] [place] [address] PCP - General 01/05/07 Thomas Mcclendon RN Belt Machine Operator Internal Medicine 12/13/20 Glendy Ochoa MD [address] [place] [address] Home Care Provider Orthopedics 11/12/21 Glendy Ochoa MD [address] [place] [address] Referring Orthopedics 11/12/21 Team Status: Inactive Member Role Status Dates Dr. Evie Grewal MD Primary Care Provider, Referr ing Provider Active Nadia Joya SALES & SERVICE ASSOCIATE, SALES & SERVICE ASSOCIATE-C Attending Provider Active Team Status: Active Member Role Status Dates Dr. Evie Grewal MD Primary Care Provider Active Dr. Shon Mcadams MD Attending Pr ovider, Referring Provider, Other Provider Active Team Status: Inactive Member Role Status Dates Dr. Evie Grewal MD Primary Care Provider, Referr ing Provider Active Dr. Shon Mcadams MD Attending Provider Active Team Status: Inactive Member Role Status Dates Dr. Evie Grewal MD Primary Care Provider Active Dr. Shon Mcadams MD Attending Provider, Referr ing Provider Active Team Status: Inactive Member Role Status Dates Dr. Evie Grewal MD Primary Care Provider Active Dr. Aileen Roper MD Emergency Provider Active Receptionist Secretary Relationship Specialty Start Date End Date Evie Grewal MD [address] [place] [address] PCP - General 01/05/07 Thomas Mcclendon RN Belt Machine Operator Internal Medicine 12/13/20 Glendy Ochoa MD [address] [address] Home Care Provider Orthopedics 11/12/21 Glendy Ochoa MD [address] [address] Referring Orthopedics 11/12/21 Receptionist Secretary Relationship Specialty Start Date End Date Evie Grewal MD [address] [place] [address] PCP - General 01/05/07 Thomas Mcclendon, plastics design engineerBelt Machine Operator Internal Medicine 12/13/20 Glendy Ochoa MD [address] [address] Home Care Provider Orthopedics 11/12/21 Glendy Ochoa MD [address] [address] Referring Orthopedics 11/12/21 Receptionist Secretary Relationship Specialty Start Date End Date Evie Grewal MD [address] [place] [address] PCP - General 01/05/07 Thomas Mcclendon, plastics design engineerBelt Machine Operator Internal Medicine 12/13/20 Glendy Ochoa MD [address] [address] Home Care Provider Orthopedics 11/12/21 Glendy Ochoa MD [address] [address] Referring Orthopedics 11/12/21 Team Status: Inactive Member Role Status Dates Dr. Evie Grewal MD Primary Care Provider Active Dr. Aileen Roper MD Attending Provider, Emergency Provider Active Team Status: Inactive Member Role Status Dates Dr. Evie Grewal MD Primary Care Provider Active Dr. Ye Torres DO Emergency Provider Active Receptionist Secretary Relationship Specialty Start Date End Date Evie Grewal MD [address] [place] [address] PCP - General 01/05/07 Thomas Mcclendon, plastics design engineerBelt Machine Operator Internal Medicine 12/13/20 Glendy Ochoa MD [address] [place] [address] Home Care Provider Orthopedics 11/12/21 Glendy Ochoa MD [address] [place] [address] Referring Orthopedics 11/12/21 Receptionist Secretary Relationship Specialty Start Date End Date Evie Grewal MD [address] [place] [address] PCP - General 01/05/07 Thomas Mcclendon RN Belt Machine Operator Internal Medicine 12/13/20 Glendy Ochoa MD [address] [place] [address] Home Care Provider Orthopedics 11/12/21 Glendy Ochoa MD [address] [place] [address] Referring Orthopedics 11/12/21 Receptionist Secretary Relationship Specialty Start Date End Date Evie Grewal MD [address] [place] [address] PCP - General 01/05/07 Thomas Mcclendon, plastics design engineerBelt Machine Operator Internal Medicine 12/13/20 Glendy Ochoa MD [address] [place] [address] Home Care Provider Orthopedics 11/12/21 Glendy Ochoa MD [address] [place] [address] Referring Orthopedics 11/12/21 Receptionist Secretary Relationship Specialty Start Date End Date Evie Grewal MD [address] [place] [address] PCP - General 01/05/07 Thomas Mcclendon RN Belt Machine Operator Internal Medicine 12/13/20 Glendy Ochoa MD [address] [place] [address] Home Care Provider Orthopedics 11/12/21 Glendy Ochoa MD [address] [place] [address] Referring Orthopedics 11/12/21 Receptionist Secretary Relationship Specialty Start Date End Date Evie Grewal MD [address] [place] [address] PCP - General 01/05/07 Thomas Mcclendon, plastics design engineerBelt Machine Operator Internal Medicine 12/13/20 Glendy Ochoa MD [facility] [address] [address] Home Care Provider Orthopedics 11/12/21 Glendy Ochoa MD [address] [address] Referring Orthopedics 11/12/21 Receptionist Secretary Relationship Specialty Start Date End Date Evie Grewal MD [address] [place] [address] PCP - General 01/05/07 Thomas Mcclendon, plastics design engineerBelt Machine Operator Internal Medicine 12/13/20 Glendy Ochoa MD [address] [address] Home Care Provider Orthopedics 11/12/21 Glendy Ochoa MD [address] [address] Referring Orthopedics 11/12/21 Receptionist Secretary Relationship Specialty Start Date End Date Evie Grewal MD [address] [place] [address] PCP - General 01/05/07 Thomas Mcclendon, plastics design engineerBelt Machine Operator Internal Medicine 12/13/20 Glendy Ochoa MD [address] [address] Home Care Provider Orthopedics 11/12/21 Glendy Ochoa MD [address] [address] Referring Orthopedics 11/12/21 Anna Hernandez APRN.CNS [address] [place] [address] Decorator Store Internal Medicine 07/25/24 Ronald Covington HARVEST SUPERVISOR.DROP FORGER HELPER [address] [place], [place] [address] [employer] Internal Medicine 07/25/24 Receptionist Secretary Relationship Specialty Start Date End Date Evie Grewal MD [address] [place] [address] PCP - General 01/05/07 Glendy Ochoa MD [address] [place] [address] Home Care Provider Orthopedics 11/12/21 Glendy Ochoa MD [address] [place] [phone] Referring Orthopedics 11/12/21 Anna Hernandez, HARVEST SUPERVISOR.COFFEE SHOP ATTENDANT [address] [place] [address] [employer] Internal Medicine 07/25/24 Ronald Covington HARVEST SUPERVISOR.DROP FORGER HELPER [address] [place] [address] [employer]ator [employer] Internal Medicine 07/25/24 Receptionist Secretary Relationship Specialty Start Date End Date Evie Grewal MD [address] [place] [address] PCP - General 01/05/07 Glendy Ochoa MD [address] [place] [address] Home Care Provider Orthopedics 11/12/21 Glendy Ochoa MD [address] [address] Referring Orthopedics 11/12/21 Anna Hernandez APRN.COFFEE SHOP ATTENDANT [address] [place] [address] [employer] Internal Medicine 07/25/24 Ronald Covington HARVEST SUPERVISOR.DROP FORGER HELPER [address] [place] [address] Dec[employer]ator Store Internal Medicine 07/25/24 Receptionist Secretary Relationship Specialty Start Date End Date Evie Grewal MD [address] [place] [address] PCP - General 01/05/07 Glendy Ochoa MD [address] [place] [address] Home Care Provider Orthopedics 11/12/21 Glendy Ochoa MD [address] [place] [address] Referring Orthopedics 11/12/21 Anna Hernandez, HARVEST SUPERVISOR.COFFEE SHOP ATTENDANT [address] [place] [address] Dec[employer] Internal Medicine 07/25/24 Ronald Covington HARVEST SUPERVISOR.DROP FORGER HELPER [address] [place] [address] Decorator Store Internal Medicine 07/25/24 Receptionist Secretary Relationship Specialty Start Date End Date Evie Grewal MD [address] [place] [address] PCP - General 01/05/07 Glendy Ochoa MD [address] [address] Home Care Provider Orthopedics 11/12/21 Glendy Ochoa MD [address] [address] Referring Orthopedics 11/12/21 Anna Hernandez HARVEST SUPERVISOR.COFFEE SHOP ATTENDANT [address] [place] [address] Decorator Store Internal Medicine 07/25/24 Ronald Covington APRN.DROP FORGER HELPER [address] [place] [address] Decorator Store Internal Medicine 07/25/24 Receptionist Secretary Relationship Specialty Start Date End Date Evie Grewal MD [address] [place] [address] PCP - General 01/05/07 Glendy Ochoa MD [address] [address] Home Care Provider Orthopedics 11/12/21 Glendy Ochoa MD [address] [address] Referring Orthopedics 11/12/21 Anna Hernandez HARVEST SUPERVISOR.COFFEE SHOP ATTENDANT [address] [place] [address] Decorator Store Internal Medicine 07/25/24 Ronald Covington APRN.DROP FORGER HELPER [address] [place] [address] Decorator Store Internal Medicine 11/08/24 Receptionist Secretary Relationship Specialty Start Date End Date Evie Grewal MD [address] [place] [address] PCP - General 01/05/07 Glendy Ochoa MD [address] [address] Home Care Provider Orthopedics 11/12/21 Glendy Ochoa MD [address] [address] Referring Orthopedics 11/12/21 Ronald Covington APRN.DROP FORGER HELPER [address] [place] [address] Decorator Store Internal Medicine 11/08/24 Anna Hernandez APRN.COFFEE SHOP ATTENDANT [address] [place] [address] Decorator Store Internal Medicine 01/04/25 Receptionist Secretary Relationship Specialty Start Date End Date Evie Grewal MD [address] [place] [address] PCP - General 01/05/07 Glendy Ochoa MD [address] [address] Home Care Provider Orthopedics 11/12/21 Glendy Ochoa MD [address] [address] Referring Orthopedics 11/12/21 Ronald Covington APRN.DROP FORGER HELPER [address] [place] [address] Decorator Store Internal Medicine 11/08/24 Anna Hernandez APRN.COFFEE SHOP ATTENDANT [address] [facility] [place] [address] Decorator Store Internal Medicine 01/04/25 Team Status: Active Member Role Status Dates Dr. Evie Grewal MD Primary Care Provider Active Team Status: Inactive Member Role Status Dates Dr. Evie Grewal MD Primary Care Provider Active Start: January 31, 2025 End: January 31, 2025 Gustabo Florian MD Emergency Provider Active Star t: January 31, 2025 End: January 31, 2025 Receptionist Secretary Relationship Specialty Start Date End Date Evie Grewal MD [address] [place] [address] PCP - General 01/05/07 Glendy Ochoa MD [address] [place] [address] Home Care Provider Orthopedics 11/12/21 Glendy Ochoa MD [address] [place] [address] Referring Orthopedics 11/12/21 Ronald Covington APRN.DROP FORGER HELPER [address] [place], [place] [address] Decorator Store Internal Medicine 11/08/24 Anna Hernandez APRN.COFFEE SHOP ATTENDANT [address] [place], [place] [address] Decorator Store Internal Medicine 01/04/25 Receptionist Secretary Relationship Specialty Start Date End Date Evie Grewal MD [address] [place] [address] PCP - General 01/05/07 Glendy Ochoa MD [address] [address] Home Care Provider Orthopedics 11/12/21 Glendy Ochoa MD [address] [address] Referring Orthopedics 11/12/21 Ronald Covington HARVEST SUPERVISOR.DROP FORGER HELPER [address] [place] [address] Decorator Store Internal Medicine 11/08/24 Anna Hernandez, HARVEST SUPERVISOR.COFFEE SHOP ATTENDANT [address] [place] [address] Decorator Store Internal Medicine 01/04/25 Receptionist Secretary Relationship Specialty Start Date End Date Evie Grewal MD [address] [place] [address] PCP - General 01/05/07 Glendy Ochoa MD [address] [address] Home Care Provider Orthopedics 11/12/21 Glendy Ochoa MD [address] [address] Referring Orthopedics 11/12/21 Ronald Covington, HARVEST SUPERVISOR.DROP FORGER HELPER [address] [place] [address] Decorator Store Internal Medicine 11/08/24 Anna Hernandez APRN.COFFEE SHOP ATTENDANT [address] [place] [address] Decorator Store Internal Medicine 01/04/25 Receptionist Secretary Relationship Specialty Start Date End Date Evie Grewal MD [address] [place] [address] PCP - General 01/05/07 Glendy Ochoa MD [address] [place] [phone] Home Care Provider Orthopedics 11/12/21 Glendy Ochoa MD [address] [place] [address] Referring Orthopedics 11/12/21 Ronald Covington APRN.DROP FORGER HELPER [address] [place] [address] Decorator Store Internal Medicine 11/08/24 Anna Hernandez, DANILO.COFFEE SHOP ATTENDANT [address] [place] [address] Decorator Store Internal Medicine 01/04/25 Team Status: Active Member Role/Relationship Status Dates Dr. Evie Grewal MD Primary Care Provider Active Team Status: Inactive Member Role/Relationship Status Dates Dr. Evie Grewal MD Primary Care Provider Active Start: January 31, 2025 End: January 31, 2025 Gustabo Florian MD Attending Provider Active Star t: January 31, 2025 End: January 31, 2025 Gustabo Florian MD Emergency Provider Active Star t: January 31, 2025 End: January 31, 2025 Team Status: Inactive Member Role/Relationship Status Dates Dr. Evie Grewal MD Primary Care Provider Active Start: March 17, 2025 End: March 17, 2025 Dr. Evie Grewal MD Referring Provider Active Start: March 17, 2025 End: March 17, 2025 Becca GARCIA, PA Attending Provider Active Start: March 17, 2025 End: March 17, 2025 Receptionist Secretary Relationship Specialty Start Date End Date Evie Grewal MD [address] [place] [address] PCP - General 01/05/07 Glendy Ochoa MD [address] [place] [address] Home Care Provider Orthopedics 11/12/21 Glendy Ochoa MD [address] [place] [address] Referring Orthopedics 11/12/21 Ronald Covington APRN.DROP FORGER HELPER [address] [place], [place] [address] Decorator Store Internal Medicine 11/08/24 Anna Hernandez APRN.COFFEE SHOP ATTENDANT [address] [place], [place] [address] Decorator Store Internal Medicine 01/04/25 Goals (unrecognized section and content) Goals may be documented in a n alternate sectionGoals may be documented in an alternate sectionGoals may be documented in an alternate sectionGoals may be documented in an alternate sectionGoals may be documented in an alternate sectionGoals may be documented in an alternate section FOR RECORDS PERTAINING TO PATIENTS WHO ARE OR HAVE BEEN ENROLLED IN A CHEMICAL DEPENDENCY/SUBSTANCEABUSE PROGRAM, SOME INFORMATION MAY BE OMITTED. This clinical summary was aggregated from multiple sources. Caution should be exercised in using it in the provision of clinical care. This summary normalizes information from multiple sources, and as a consequence, information in this document may materially change the coding, format and clinical context of patient data. In addition, data may be omitted in some cases. CLINICAL DECISIONS SHOULD BE BASED ON THE PRIMARY CLINICAL RECORDS. [facility]. provides no warranty or guarantee of the accuracy or completeness of information in this document.
[2025-07-08] MEDS: HYDROmorphone 0.5 MG/0.5 ML SYRINGE IV (04:10)
[2025-07-08 04:16] VITALS: BP 164/91; PULSE 84; RESP 16; O2SAT 94
--- NOTE | 2025-07-08 04:51 | EX.ED.DYSGE1 ---
HPI History of Present Illness Chief Complaint: Fall Informant: patient and EMS Narrative Narrative: Patient is a 74-year-old male with past medical history of hypertension hyperlipidemia and type 2 diabetes. He states he has difficulty ambulating at baseline and will typically need to use a cane. He states this evening he was trying to get into his lift chair when he lost his balance and fell. He states he landed on his left side injuring his left shoulder. He denies striking his head or any loss of consciousness. He states that the fall was purely mechanical and he was not dizzy or lightheaded or having palpitations or chest discomfort prior to the event. He denies any history of bleeding disorder or blood thinner use. However he could not get back up following the fall and has significant pain in his shoulder and with concern for injury was brought in for evaluation [facility] Medical History (Updated 07/10/25 @ 03:[address] Nils Truong, ) Wears glasses Ambulates with cane Insulin dependent diabetes mellitus Prostate disease Arthritis Back pain Dietary restriction Heartburn Non-smoker Leg cramps History of pain when walking History of echocardiogram History of stress test Cardiology follow-up encounter History of heart attack Syncope CVA (cerebral vascular accident) Stenosis of right carotid artery Mixed hyperlipidemia History of pleural effusion Essential hypertension Presence of stent in coronary artery (~05/04/20) Atherosclerotic heart disease of [place] coronary artery without angina pectoris Blood in the urine Morbid obesity Left pontine stroke DM2 (diabetes mellitus, type 2) Chronic systolic CHF (congestive heart failure) Altered mental status CLL (chronic lymphocytic leukemia) Home Medications ?Medication ?Instructions ?Recorded ?Last Taken ?Type carvedilol 12.5 mg tablet 12.5 mg PO BID 11/03/16 01/31/25 Rx ezetimibe 10 mg tablet (Zetia) 10 mg PO DAILY cholesterol 06/14/19 01/31/25 History ramipril 10 mg capsule 10 mg PO DAILY 06/14/21 01/31/25 History insulin glargine 100 unit/mL (3 8 unit subcut QHS PRN SLIDING SCALE 01/24/22 Unknown History mL) subcutaneous pen Held on 07/08/25. Instructions: by pt insulin aspart U-100 100 unit/mL 1 unit subcut QAC PRN SLIDING SCALE 12/26/22 01/31/25 History (3 mL) subcutaneous pen docusate sodium 100 mg capsule 100 mg PO BID constipation 05/13/24 01/31/25 History (Colace) acetaminophen 325 mg tablet 325 mg PO Q4H PRN Pain Or Fever 01/31/25 Unknown History aspirin 81 mg chewable tablet 162 mg PO DAILY 01/31/25 01/31/25 History cholecalciferol (vitamin D3) 50 50 mcg PO DAILY 01/31/25 01/31/25 History mcg (2,000 unit) tablet (D3 DOTS) metformin 500 mg tablet,extended 2,000 mg PO DAILY 01/31/25 01/31/25 History release 24 hr methocarbamol 500 mg tablet 500 mg PO 4X/DAY PRN Muscle 07/08/25 Unknown Rx pain/spasm #40 tabs oxycodone-acetaminophen 5 mg-325 1 tab PO Q6H PRN pain 3 days #12 07/08/25 Unknown Rx mg tablet (Percocet) tabs Allergy/AdvReac Type Severity Reaction Status Date / Time atorvastatin (From Lipitor) Allergy Severe Other Verified 03/17/25 10:15 pravastatin (From Pravachol) Allergy Severe Other Verified 03/17/25 10:15 rosuvastatin (From Crestor) Allergy Severe Other Verified 03/17/25 10:15 Ervikmc-ZJB-DqR Reductase Allergy Severe Other Verified 03/17/25 10:15 Inhibitor (Ioahswp-Oow-Wkj Reductase Inhibitor) ciprofloxacin AdvReac Severe dizziness, Verified 03/17/25 10:15 vomiting Family History Mother CAD (coronary artery disease) CVA (cerebral vascular accident) Surgical History S/P inguinal hernia repair History of cardiac catheterization Hx of colonoscopy History of cystoscopy History of left hip replacement (~10/2021) History of bilateral cataract extraction Presence of coronary angioplasty implant and graft (~02/20/13) Social History household members: spouse Smoking Status: Never smoker alcohol intake: never substance use type: does not use caffeine: No ROS ROS ED Constitutional Constitutional ED: Denies chills or fever(s) Eyes Eyes: Denies blurry vision or change in vision ENT ENT ED: Denies sore throat Cardiovascular Cardiovascular: Reports other Details: Negative syncope ; Denies chest pain, palpitations or racing heartbeat Respiratory/Chest Respiratory/Chest: Denies cough or dyspnea Gastrointestinal Gastrointestinal: Denies abdominal pain, diarrhea, nausea or vomiting Musculoskeletal Musculoskeletal: Reports other Details: Positive left shoulder pain ; Denies back pain or neck pain Integumentary Denies Abrasions Neurologic Neurologic: Denies headache(s) Hematologic/Lymphatic Hematologic/Lymphatic: Denies easy bleeding or easy bruising EXAM Physical Exam Const Vital Signs: 07/08/25 02:27 07/08/25 02:32 07/08/25 02:42 Temperature 98.1 F Temperature Source Oral Pulse Rate 80 Respiratory Rate 18 Respiratory Effort Normal Blood Pressure 220/99 H 218/104 H Blood Pressure Mean 139 142 Pulse Ox 99 Oxygen Delivery Method Room Air Room Air 07/08/25 04:16 Temperature Temperature Source Pulse Rate 84 Respiratory Rate 16 Respiratory Effort Blood Pressure 164/91 H Blood Pressure Mean 115 Pulse Ox 94 Oxygen Delivery Method Room Air Positive well nourished and well developed General Appearance ED: well developed HEENT HEENT Narrative: Normocephalic atraumatic No signs of depressed or basilar skull fracture Eyes PERRL and EOMs intact bilaterally General Eye ED: Negative for scleral icterus Neck supple Neck Narrative: No bony deformity or step-off of the cervical spine No midline tenderness to palpation Chest Wall palpation of chest normal Chest Narrative: No bony deformity or subcutaneous emphysema noted No chest wall pain with palpation Resp normal respiratory effort and clear to auscultation bilaterally Resp Narrative: Breath sounds are diminished throughout but overall clear to auscultation without signs of respiratory distress Cardio regular rate and regular rhythm Rate: other Other Details: Radial and carotid pulses are equal and symmetric GI normal to inspection, nondistended, normoactive bowel sounds, non-tender, non-distended and no masses GI Narrative: No voluntary guarding or rigidity or pulsatile mass No overlying abrasions or ecchymosis No peritoneal signs Auscultation: normoactive bowel sounds Palpation: soft Extremity normal to inspection Neuro oriented x3 and CN's II-XII intact bilaterally Sensorium / Orientation: alert Psych mental status grossly normal Skin no rashes or lesions noted MDM MDM MDM Narrative Medical decision making narrative: Patient arrived to the ER hypertensive but is in pain and has a history of hypertension and otherwise vitals are stable. He reported a mechanical fall so I felt no need for cardiac or syncope workup. He did not strike his head nor did he have findings of head injury on exam. We did discuss with his fall the potential for traumatic subarachnoid or subdural hemorrhage but without history of bleeding disorder or blood thinner use or history or exam findings of head injury concern for this is low and he does not want a head CT. We also discussed a CT of the cervical spine to check for compression fracture but without pain he has low concern for this as well. His main concern is injury to the left shoulder in order to rule out fracture versus dislocation versus contusion and x-ray was ordered. The x-ray revealed mild degenerative changes without fracture or dislocation. After the patient was given pain medication as well as muscle relaxer he did report feeling much better and his blood pressure improved. We discussed potential placement based on his injury and difficulty ambulating. He states he is right-handed and he feels comfortable going home as his pain is controlled and his workup is negative. Family was present during this and are agreeable to taking him home. Therefore at this time as exam does not show findings to suggest subarachnoid or subdural hemorrhage nor does it suggest findings of pubic rami or pelvic fracture and the x-ray confirms no shoulder dislocation or fracture he will be discharged home with symptomatic medication. History & Record Review Discussion w/independent historian: Patient Radiography Diagnostic Testing: Clinical Impression(s) from Imaging Studies Shoulder X-Ray 07/08/25 03:10 IMPRESSION: No evidence for acute abnormality. Reading Location: [place] [address] Left shoulder x-ray as interpreted by the emergency medicine physician reveals degenerative changes without acute fracture or dislocation Discharge Plan Triage Chief Complaint: Fall ED Provider: Nils Truong Dx/Rx/DC Orders Clinical Impression: Accidental fall, Contusion of left shoulder, Essential hypertension, Mixed hyperlipidemia, DM2 (diabetes mellitus, type 2) Instructions: ED Shoulder Bruise Prescriptions: New methocarbamol 500 mg tablet 500 mg PO 4X/DAY PRN (Reason: Muscle pain/spasm) Qty: 40 0RF oxycodone-acetaminophen [Percocet] 5-325 mg tablet 1 tab PO Q6H PRN (Reason: pain) 3 Days Qty: 12 0RF No Action ezetimibe [Zetia] 10 mg tablet 10 mg PO DAILY ramipril 10 mg capsule 10 mg PO DAILY docusate sodium [Colace] 100 mg capsule 100 mg PO BID carvedilol 12.5 MG tablet 12.5 mg PO BID 0RF insulin glargine 100 unit/mL (3 mL) insulin pen 8 unit subcut QHS PRN (Reason: SLIDING SCALE) insulin aspart U-100 100 unit/mL (3 mL) insulin pen 1 unit subcut QAC PRN (Reason: SLIDING SCALE) cholecalciferol (vitamin D3) [D3 DOTS] 50 mcg (2,000 unit) tablet 50 mcg PO DAILY acetaminophen 325 mg Tablet 325 mg PO Q4H PRN (Reason: Pain Or Fever) aspirin 81 MG tablet,chewable 162 mg PO DAILY Patient Comments: [facility] Rx Instructions: resume tomorrow metformin 500 mg tablet extended release 24 hr 2,000 mg PO DAILY Primary Care Provider: Kaycee Singer Referrals: Kaycee Singer MD [Primary Care Provider, Internal Medicine] Activity Restrictions/Additional Instructions: Your x-ray did not show any sign of fracture or dislocation indicating your pain is most likely due to a deep bone bruise known as a contusion. This can take 1 to 2 weeks to heal but should improve slightly every few days. Take the prescribed medication as directed to help with symptoms and you can also ice or use idav-kut-vieezhq treatments such as IcyHot or lidocaine patches. If symptoms or not improving you may need evaluated by orthopedics and potential MRI to discuss rotator cuff injury or missed fracture. Return to the ER should you have any further concerns Print Language: Croatian Disposition Disposition: Home, Self Care Discharge Date/Time: 07/08/25 05:22
[2025-07-08 05:21] VITALS: BP 150/67; PULSE 80; RESP 18; TEMP 36.6; O2SAT 96
== END 2025-07-08 05:22 | disposition home or self-care (01) ==
PROVIDERS: Emergency Provider Emergency Medicine; PCP Internal Medicine; Visit Provider Emergency Medicine
DX: S40.012A Contusion of left shoulder, initial encounter (principal); I11.0 Hypertensive heart disease with heart failure; I50.22 Chronic systolic (congestive) heart failure; E11.9 Type 2 diabetes mellitus without complications; I25.10 Atherosclerotic heart disease of native coronary artery without angina pectoris; E78.2 Mixed hyperlipidemia; W19.XXXA Unspecified fall, initial encounter
CPT/HCPCS: 73030; 96374; 96375; 99283; A4216; J2405